=== PATIENT | male | born 1935 ===

== ENCOUNTER 2017-07-10 20:10 | Inpatient (IN) | payer MEDICARE ==
[2017-07-10 20:10] VITALS: BMI 25.4
--- NOTE | 2017-07-10 20:49 | ED PDOC ---
HPI: Chest Pain Chief Complaint (Provider): Sternal Pain History Per: Patient History/Exam Limitations: no limitations Onset/Duration Of Symptoms: Hrs (began first thing this AM), Days Current Symptoms Are (Timing): Still Present Severity: Moderate Pain Scale Rating Of: 6 Quality: Dull <Quique Jansen - Last Filed: 07/10/17 22:20> <Liv Siegel - Last Filed: 07/11/17 23:25> Time Seen by Provider: 07/10/17 20:23 Chief Complaint (Nursing): Chest Pain Additional Complaint(s): 82 yo M w PMHx of HTN, DM, and ?urinary bladder CA presents to ED for c/o chest pain since this morning. Pt states that he was watching TV when he developed substernal chest pain that hasn't improved/worsened. Denies any radiation of pain/discomfort, fevers/chills, n/v/d, syncope, or diaphoresis. 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 He denies any urinary retention/incontinence , but does state he occasionally has hematuria. He also states h/o ?carotid artery procedure 2-3 yrs ago; he is unsure as to it's name or purpose, but he did make a vertical motion on he left lateral side of his neck when explaining this history. Otherwise, pt denies SOB, dyspnea, cough, abdominal pain, or dysuria. (Quique Jansen) Supervising Attending Note - Supervising Attending Note The Documented history was done by the: Physician Machine Bookkeeper, Attending Physician The documented physical exam was done by the: Physician Machine Bookkeeper, Attending Physician - Attestation: I have personally seen and examined this patient.: Yes I have fully participated in the care of the patient.: Yes I have reviewed all pertinent clinical information: Yes <Liv Siegel - Last Filed: 07/11/17 23:25> Past Medical History Reviewed: Historical Data, Nursing Documentation, Vital Signs - Medical History PMH: Anemia, HTN Denies: Chronic Kidney Disease - Family History Family History: States: Unknown Family Hx <Quique Jansen - Last Filed: 07/10/17 22:20> <Liv Siegel - Last Filed: 07/11/17 23:25> Vital Signs: Last Vital Signs Temp 98.5 F 07/11/17 19:07 Pulse 70 07/11/17 21:34 Resp 20 07/11/17 19:07 BP 175/74 H 07/11/17 21:34 Pulse Ox 99 07/11/17 19:07 - Home Medications Home Medications: Ambulatory Orders Medication Instructions Recorded Sitagliptin Phos/Metformin HCl 50 - 500 mg PO DAILY 05/02/17 [Janumet 50-500 mg Tablet] Valsartan [Diovan] 320 mg PO DAILY 05/02/17 hydroCHLOROthiazide [Hydrodiuril] 25 mg PO DAILY 07/10/17 - Allergies Allergies/Adverse Reactions: Allergies Allergy/AdvReac Type Severity Reaction Status Date / Time No Known Allergies Allergy Verified 07/10/17 20:18 Review of Systems ROS Statement: Except As Marked, All Systems Reviewed And Found Negative (see HPI) <Quique Jansen T - Last Filed: 07/10/17 22:20> Physical Exam - Reviewed Nursing Documentation Reviewed: Yes Vital Signs Reviewed: Yes - Physical Exam Appears: Positive for: Non-toxic, No Acute Distress Head Exam: Positive for: ATRAUMATIC, NORMOCEPHALIC Eye Exam: Positive for: Normal appearance, PERRL ENT: Positive for: Pharynx Is (dry). Negative for: Pharyngeal Erythema Neck: Positive for: Normal (no scars noted over neck), Painless ROM Cardiovascular/Chest: Positive for: Regular Rate, Rhythm, Chest Non Tender, Murmur (systolic), Other (mild left carotid bruit). Negative for: Edema Respiratory: Positive for: Normal Breath Sounds. Negative for: Rhonchi, Wheezing Gastrointestinal/Abdominal: Positive for: Tenderness (epigastric) Back: Positive for: Normal Inspection Extremity: Negative for: Pedal Edema, Calf Tenderness Neurologic/Psych: Positive for: Alert, Oriented <Quique Jansen T - Last Filed: 07/10/17 22:20> - Laboratory Results Result Diagrams: 07/10/17 20:52 07/10/17 20:52 - ECG O2 Sat by Pulse Oximetry: 100 <Quique Jansen - Last Filed: 07/10/17 22:20> - Laboratory Results Result Diagrams: 07/11/17 04:15 07/11/17 04:15 <Liv Siegel - Last Filed: 07/11/17 23:25> - Progress ED Course And Treament: 82 yo M w PMHx of HTN, DM, and ?urinary bladder CA presents to ED for c/o chest pain since this morning -CBC -CMP -Lipase -Mg -Phos -Troponin x3 -BNP -PT/INR/PTT -Type & Screen -Udip -EKG -CXR Update 2200: -H/H 8.4/27.5 -K: 5.1 -BUN/Cr: 65/3.4; GFR: 17 -AST/ALT: 22/37; Lipase: 714 -BNP: 376 -Troponin: 0.022 -Admitted to tele for Pancreatitis and Chest Pain -Spoke w Hospitalist, added NS 1L bolus ONCE and NS @ 250mL/hr (Quique Jansen) Disposition - Patient ED Disposition Is Patient to be Admitted: Yes Discussed With DrBrice: Sajan Hammond - Disposition Disposition Time: 22:00 - Pt Status Changed To: Hospital Disposition Of: Inpatient - Admit Certification Admit to Inpatient:: After my assessment, the patient will require hospitalization for at least two midnights. This is because of the severity of symptoms shown, intensity of services needed, and/or the medical risk in this patient being treated as an outpatient. <Quique Jansen - Last Filed: 07/10/17 22:20> <Liv Siegel - Last Filed: 07/11/17 23:25> - Clinical Impression Clinical Impression: Chest pain, Pancreatitis, KENJI (acute kidney injury) - Disposition Condition: STABLE
[2017-07-10 21:01] LABS: BASO % 0.3 % (0.0-2.0); EOS # 0.3 K/uL (0.0-0.7); EOS % 2.9 % (0.0-4.0); HEMATOCRIT 27.5 % (35.0-51.0); LYMPH # 1.2 K/uL (1.0-4.3); LYMPH % 13.9 % (20.0-40.0); MEAN CELL VOLUME 79.5 fl (80.0-94.0); MEAN CORPUSCULAR HEMOGLOBIN 24.3 pg (27.0-31.0); MEAN CORPUSCULAR HGB CONC 30.6 g/dL (33.0-37.0); MEAN PLATELET VOLUME 7.8 fl (7.2-11.7); MONO # 0.7 K/uL (0.0-0.8); MONO % 8.1 % (0.0-10.0); NEUT # 6.7 K/uL (1.8-7.0); NEUT % 74.8 % (50.0-75.0); RED CELL DISTRIBUTION WIDTH 17.8 % (11.5-14.5)
[2017-07-10 21:11] LABS: ALB/GLOB RATIO 1.5 (1.0-2.1); BILIRUBIN,TOTAL 0.3 mg/dl (0.2-1.3); CALCIUM 9.9 mg/dL (8.4-10.2); MAGNESIUM 2.3 MG/DL (1.6-2.3); PHOSPHOROUS 3.6 mg/dl (2.5-4.5); POTASSIUM 5.1 MMOL/L (3.6-5.0); TOTAL PROTEIN 7.2 G/DL (6.3-8.2)
[2017-07-10 21:20] LABS: PARTIAL THROMBOPLASTIN TIME 27.1 Seconds (25.6-37.1)
[2017-07-10 21:23] LABS: TROPONIN I 0.022 ng/mL (0.00-0.120)
[2017-07-10] MEDS ORDERED: Sodium Chloride 0.9% 1,000 ML IV SCH (22:30)
--- NOTE | 2017-07-10 23:57 | CP.PCM.HP ---
History of Present Illness - History of Present Illness History of Present Illness: PCP: Anuel Benson MD Chief complaint: Chest Pain HPI: 82 years old male with hx of HTN, DM II Anemia and bladder tumor comes with one day of a dull, intermittent, non radiating lower retrosternal chest pain which began while he was at rest. He has associated light headedness on standing from a sitting position and some weakness. No nausea, vomits, diaphoresis, fever, chills. No dysuria, visible hematuria nor SOB. PMH: Anemia; HTN; DM II; Cataract; Sciatica with pains radiating sown both legs ;;Lower back pain; Bladder tumor for surgery on 07/24/17 PSH: Right Cataract Surgery; Left inguinal Hernia repair; Umbilical hernia repair; Left carotid endarterectomy SH: Light smoker, No alcohol use, no illegal drug use; live with family FH: States: Unknown Family Hx Allergies: NKDA Present on Admission - Present on Admission Any Indicators Present on Admission: Yes History of DVT/PE: No History of Uncontrolled Diabetes: Yes Urinary Catheter: No Decubitus Ulcer Present: No Review of Systems - Constitutional Constitutional: absent: Anorexia, Chills, Fatigue, Fever, Headache - EENT Eyes: absent: Diplopia, Floaters, Requires Corrective Lenses Ears: absent: Decreased Hearing, Ear Discharge, Tinnitus Nose/Mouth/Throat: absent: Epistaxis, Nasal Congestion, Nasal Discharge Additional comments: Upper and lower dentures - Cardiovascular Cardiovascular: Chest Pain. absent: Dyspnea, Edema - Respiratory Respiratory: Cough. absent: Wheezing, Stridor, Chest Congestion - Gastrointestinal Gastrointestinal: Constipation. absent: Diarrhea, Nausea, Vomiting - Genitourinary Genitourinary: absent: Dysuria, Flank Pain, Hematuria, Urinary Frequency - Musculoskeletal Musculoskeletal: Back Pain. absent: Joint Swelling, Myalgias Additional comments: Pain to both lower extremities - Integumentary Integumentary: absent: Pruritus, Rash, Skin Ulcer, Sores, Striae, Swelling - Neurological Neurological: Dizziness. absent: Confusion, Focal Weakness, Headaches, Weakness - Psychiatric Psychiatric: absent: Anxiety, Depression, Panic Attacks - Endocrine Endocrine: absent: Palpitations, Polydipsia, Polyphagia, Polyuria - Hematologic/Lymphatic Hematologic: absent: Easy Bleeding, Easy Bruising Past Patient History - Past Medical History & Family History Past Medical History?: Yes - Past Social History Smoking Status: Light Smoker < 10 Cigarettes Daily Chewing Tobacco Use: No Cigar Use: No Alcohol: None Drugs: Denies Home Situation {Lives}: With Family - CARDIAC Hx Hypertension: Yes - PULMONARY Hx Respiratory Disorders: No - NEUROLOGICAL Hx Neurological Disorder: No - HEENT Hx HEENT Problems: Yes Hx Cataracts: Yes (padmini surgery) - RENAL Hx Chronic Kidney Disease: No - ENDOCRINE/METABOLIC Hx Endocrine Disorders: Yes Hx Diabetes Mellitus Type 2: Yes - HEMATOLOGICAL/ONCOLOGICAL Hx Anemia: Yes - INTEGUMENTARY Hx Dermatological Problems: No - MUSCULOSKELETAL/RHEUMATOLOGICAL Hx Musculoskeletal Disorders: No - GASTROINTESTINAL Hx Gastrointestinal Disorders: No - GENITOURINARY/GYNECOLOGICAL Hx Genitourinary Disorders: No Other/Comment: 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 - PSYCHIATRIC Hx Psychophysiologic Disorder: No Hx Substance Use: No - SURGICAL HISTORY Hx Surgeries: Yes Hx Herniorrhaphy: Yes (umbilical,left inguinal) Other/Comment: left carotid endarectomy, latex padmini - ANESTHESIA Hx Anesthesia: Yes ([place]) Hx Anesthesia Reactions: No Hx Malignant Hyperthermia: No Meds Allergies/Adverse Reactions: Allergies Allergy/AdvReac Type Severity Reaction Status Date / Time No Known Allergies Allergy Verified 07/10/17 20:18 Physical Exam - Constitutional Appears: No Acute Distress - Head Exam Head Exam: ATRAUMATIC, NORMAL INSPECTION, NORMOCEPHALIC - Eye Exam Eye Exam: EOMI, Normal appearance Pupil Exam: NORMAL ACCOMODATION, PERRL - ENT Exam ENT Exam: Mucous Membranes Moist, Normal Exam, Normal External Ear Exam, Normal Oropharynx - Neck Exam Neck exam: Positive for: Full Rom, Normal Inspection. Negative for: Lymphadenopathy, Tenderness - Respiratory Exam Respiratory Exam: Clear to Auscultation Bilateral. absent: Rales, Rhonchi, Wheezes - Cardiovascular Exam Cardiovascular Exam: REGULAR RHYTHM, RRR, +S1, +S2. absent: Gallop, JVD - GI/Abdominal Exam GI & Abdominal Exam: Normal Bowel Sounds, Soft Additional comments: Full, soft tender at the pubic region, no rebound nor guarding - Rectal Exam Rectal Exam: Deferred - Extremities Exam Extremities exam: Positive for: full ROM, normal inspection. Negative for: pedal edema - Back Exam Back exam: NORMAL INSPECTION. absent: CVA tenderness (L), CVA tenderness (R) - Neurological Exam Neurological exam: Alert, CN II-XII Intact, Oriented x3, Reflexes Normal - Psychiatric Exam Psychiatric exam: Normal Affect, Normal Mood - Skin Skin Exam: Dry, Intact, Normal Color, Warm Results - Vital Signs Recent Vital Signs: Last Vital Signs Temp 97.8 F 07/10/17 20:18 Pulse 79 07/10/17 20:42 Resp 16 07/10/17 20:42 BP 172/94 H 07/10/17 20:42 Pulse Ox 100 07/10/17 22:24 - Labs Result Diagrams: 07/10/17 20:52 07/10/17 20:52 Labs: Laboratory Results - last 24 hr 07/10/17 07/10/17 07/10/17 20:52 20:52 20:52 WBC 9.0 RBC 3.46 L Hgb 8.4 L Hct 27.5 L MCV 79.5 L MCH 24.3 L MCHC 30.6 L RDW 17.8 H Plt Count 308 MPV 7.8 Neut % (Auto) 74.8 Lymph % (Auto) 13.9 L [place] % (Auto) 8.1 Eos % (Auto) 2.9 Baso % (Auto) 0.3 Neut # 6.7 Lymph # 1.2 [place] # 0.7 Eos # 0.3 Baso # 0.0 PT 11.1 INR 1.1 APTT 27.1 Sodium 138 Potassium 5.1 H Chloride 106 Carbon Dioxide 21 L Anion Gap 16 BUN 65 H Creatinine 3.4 H Est GFR ( Amer) 21 Est GFR (Non-Af Amer) 17 Random Glucose 131 H Calcium 9.9 Phosphorus 3.6 Magnesium 2.3 Total Bilirubin 0.3 AST 22 ALT 37 Alkaline Phosphatase 109 Troponin I 0.0220 NT-Pro-B Natriuret Pep 376 Total Protein 7.2 Albumin 4.2 Globulin 2.9 Albumin/Globulin Ratio 1.5 Lipase 714 H Blood Type Antibody Screen BBK History Checked 07/10/17 20:52 WBC RBC Hgb Hct MCV MCH MCHC RDW Plt Count MPV Neut % (Auto) Lymph % (Auto) [place] % (Auto) Eos % (Auto) Baso % (Auto) Neut # Lymph # [place] # Eos # Baso # PT INR APTT Sodium Potassium Chloride Carbon Dioxide Anion Gap BUN Creatinine Est GFR ( Amer) Est GFR (Non-Af Amer) Random Glucose Calcium Phosphorus Magnesium Total Bilirubin AST ALT Alkaline Phosphatase Troponin I NT-Pro-B Natriuret Pep Total Protein Albumin Globulin Albumin/Globulin Ratio Lipase Blood Type A POSITIVE Antibody Screen Negative BBK History Checked No verified bt Assessment & Plan - Assessment and Plan (Free Text) Assessment: #. Chest Pain #. Acute on chronic Kidney disease #. elevated Lipase #. DM II #. HTN #. Bladder mass #. Sciatica #. Hyperkalem Plan: 82 years old male with hx of HTN, DM II Anemia and bladder tumor comes with one day of a dull, intermittent,non radiating lower retrosternal chest pain which began while he was at rest. Associated was light headedness on standing from a sitting position and some weakness. #. Chest Pain r/o ACS, r/o reflux esophagitis - Consult Dr Mtz cardiology - Serial Troponin - Serial EKG - Lipid panel - ASA - Metoprolol - Protonix #. Acute on chronic Kidney disease - Consult Dr Balbuena Nephrology - IV Fluid NS at 250mls/hr - follow Renal labs - abdominal US to include renal, RUQ and Pancrease #. Elevated Lipase, most likely secondary to the Renal failure - IV Fluids NS at 250mls/min - Follow Lipase levels #. DM II with Hyperglycemia - Diabetic diet - Regular Insulin sliding scale according to accucheck - Hold Janumet - HbA1c #. HTN - Hold Diovan - Metoprolol BID #. Bladder mass - consult Dr Lord urology #. Sciatica - pain management #. Hyperkalemia due to the renal failure - follow Electrolytes #. DVT prophylaxis with SCD #. Code Status: Full - Date & Time Date: 07/10/17 Time: 23:56
[2017-07-11] MEDS: Sodium Chloride 0.9% 1,000 ML IV SCH ×4 (01:32→14:46)
[2017-07-11] MEDS: Pantoprazole 40 mg EC Tab PO SCH ×2 (01:37→09:41)
[2017-07-11 05:51] LABS: HEMATOCRIT 25.1 % (35.0-51.0); MEAN CELL VOLUME 78.8 fl (80.0-94.0); MEAN CORPUSCULAR HEMOGLOBIN 24.7 pg (27.0-31.0); MEAN CORPUSCULAR HGB CONC 31.4 g/dL (33.0-37.0); RED CELL DISTRIBUTION WIDTH 17.5 % (11.5-14.5); WHITE BLOOD COUNT 8.6 K/uL (4.8-10.8)
[2017-07-11 05:54] LABS: IRON 161 ug/dL (49-181)
[2017-07-11 06:01] LABS: TROPONIN I 0.06 ng/mL (0.00-0.120)
[2017-07-11 06:03] LABS: CALCIUM 9.2 mg/dL (8.4-10.2); POTASSIUM 4.6 MMOL/L (3.6-5.0)
[2017-07-11] MEDS: Insulin Regular 100 units/ml SC SCH ×4 (07:24→21:34)
--- NOTE | 2017-07-11 08:06 | RAD ---
HISTORY: Chest pain. COMPARISON: 05/02/2017. FINDINGS: LUNGS: No active pulmonary disease. PLEURA: No significant pleural effusion identified, no pneumothorax apparent. CARDIOVASCULAR: No radiographic findings to suggest acute or significant cardiovascular disease. OSSEOUS STRUCTURES: No significant abnormalities. VISUALIZED UPPER ABDOMEN: Normal. OTHER FINDINGS: None. IMPRESSION: No active disease. No significant interval change compared to the prior examination(s). No preliminary report provided by emergency department personnel.
[2017-07-11] MEDS ORDERED: Influenza Vaccine 18yr & older 0.5 ML/45 MCG SYR IM ONE (09:00)
[2017-07-11] MEDS ORDERED: Pneumococcal 23-Valent Vaccine IM ONE (09:00)
--- NOTE | 2017-07-11 09:52 | CP.PCM.PN ---
Subjective - Date & Time of Evaluation Date of Evaluation: 07/11/17 Time of Evaluation: 09:50 - Subjective Subjective: Patient is a 82 years of age presented to the emergency room with the left chest pain atypical although there was radiation as described in the H/P. He was fond to have high BUN/creatinine for which I was called to see this patient for further evaluation. Patient stated that has history of chronic kidney disease he was told that his kidney walking about 35% or so. And he has episode of hyperkalemia. And the history from the chart as follow 82 years old male with hx of HTN, DM II Anemia and bladder tumor comes with one day of a dull, intermittent, non radiating lower retrosternal chest pain which began while he was at rest. He has associated light headedness on standing from a sitting position and some weakness. No nausea, vomits, diaphoresis, fever, chills. No dysuria, visible hematuria nor SOB. PMH: Anemia; HTN; DM II; Cataract; Sciatica with pains radiating sown both legs ;;Lower back pain; Bladder tumor for surgery on 07/24/17 PSH: Right Cataract Surgery; Left inguinal Hernia repair; Umbilical hernia repair; Left carotid endarterectomy SH: Light smoker, No alcohol use, no illegal drug use; live with family Objective - Vital Signs/Intake and Output Vital Signs (last 24 hours): Temp Pulse Resp BP Pulse Ox 97.5 F L 94 H 18 163/65 H 98 07/11/17 08:00 07/11/17 09:40 07/11/17 08:00 07/11/17 09:40 07/11/17 08:00 - Medications Medications: Current Medications Aspirin (Ecotrin) 81 mg PO DAILY [facility] Last Admin: 07/11/17 09:44 Dose: Not Given Sodium Chloride (Sodium Chloride 0.9%) 1,000 mls @ 250 mls/hr IV .Q4H [facility] Stop: 07/11/17 22:16 Last Admin: 07/11/17 06:48 Dose: 250 mls/hr Insulin Human Regular (Humulin R) 0 units SC ACHS [facility] PRN Reason: Protocol Last Admin: 07/11/17 07:24 Dose: Not Given Metoprolol Tartrate (Lopressor) 25 mg PO Q12 [facility] Last Admin: 07/11/17 09:40 Dose: 25 mg Nitroglycerin (Nitrostat Sl Tab) 0.4 mg SL Q5M PRN PRN Reason: Other Last Admin: 07/11/17 01:27 Dose: 0.4 mg Pantoprazole Sodium (Protonix Ec Tab) 40 mg PO DAILY [facility] Last Admin: 07/11/17 09:41 Dose: 40 mg - Labs Labs: 07/11/17 04:15 07/11/17 04:15 PT 11.1 Seconds (9.8-13.1) 07/10/17 20:52 INR 1.1 (0.9-1.2) 07/10/17 20:52 APTT 27.1 Seconds (25.6-37.1) 07/10/17 20:52 - Constitutional Appears: No Acute Distress - ENT Exam ENT Exam: Mucous Membranes Moist - Respiratory Exam Respiratory Exam: NORMAL BREATHING PATTERN. absent: Chest Wall Tenderness - Cardiovascular Exam Cardiovascular Exam: absent: JVD, Rubs - GI/Abdominal Exam GI & Abdominal Exam: Normal Bowel Sounds - Extremities Exam Extremities Exam: absent: Calf Tenderness - Back Exam Back Exam: absent: CVA tenderness (L), CVA tenderness (R) - Neurological Exam Neurological Exam: Alert Assessment and Plan (1) KENJI (acute kidney injury) Assessment & Plan: Patient admitted with the chest pain he was fond to have high and malaise consistent with acute pancreatitis perhaps? And abnormal kidney function high BUN/creatinine consistent with appeared to be acute kidney injury perhaps superimposed on chronic kidney disease? Also as noted in the history patient has a bladder tumor is scheduled to have surgery My recommendation to do ultrasound of the abdomen and pelvis. To see the kidney size and shape Kidney function improving continue gentle hydration Spot urine for sodium creatinine and osmolarity Status: Acute
--- NOTE | 2017-07-11 11:00 | CP.PCM.PN ---
<Daniel Green - Last Filed: 07/11/17 15:28> Subjective - Date & Time of Evaluation Date of Evaluation: 07/11/17 Time of Evaluation: 10:00 - Subjective Subjective: Patient seen and examined at bedside. NAD, AAO, afebrile and HD stable. As per pt, I feel fine, denies chest pain, n/v or dizziness. pt voiding freely, denies any hematuria. [facility] [place] [id number], Syrian speaking patient Objective - Vital Signs/Intake and Output Vital Signs (last 24 hours): Temp Pulse Resp BP Pulse Ox 97.5 F L 94 H 18 163/65 H 98 07/11/17 08:00 07/11/17 09:40 07/11/17 08:00 07/11/17 09:40 07/11/17 08:00 - Medications Medications: Current Medications Aspirin (Ecotrin) 81 mg PO DAILY [facility] Last Admin: 07/11/17 09:44 Dose: Not Given Sodium Chloride (Sodium Chloride 0.9%) 1,000 mls @ 250 mls/hr IV .Q4H [facility] Stop: 07/11/17 22:16 Last Admin: 07/11/17 06:48 Dose: 250 mls/hr Insulin Human Regular (Humulin R) 0 units SC ACHS [facility] PRN Reason: Protocol Last Admin: 07/11/17 07:24 Dose: Not Given Metoprolol Tartrate (Lopressor) 25 mg PO Q12 [facility] Last Admin: 07/11/17 09:40 Dose: 25 mg Nitroglycerin (Nitrostat Sl Tab) 0.4 mg SL Q5M PRN PRN Reason: Other Last Admin: 07/11/17 01:27 Dose: 0.4 mg Pantoprazole Sodium (Protonix Ec Tab) 40 mg PO DAILY [facility] Last Admin: 07/11/17 09:41 Dose: 40 mg - Labs Labs: 07/11/17 04:15 07/11/17 04:15 PT 11.1 Seconds (9.8-13.1) 07/10/17 20:52 INR 1.1 (0.9-1.2) 07/10/17 20:52 APTT 27.1 Seconds (25.6-37.1) 07/10/17 20:52 - Constitutional Appears: No Acute Distress - Head Exam Head Exam: ATRAUMATIC - Eye Exam Eye Exam: EOMI, Normal appearance, PERRL Pupil Exam: NORMAL ACCOMODATION - ENT Exam ENT Exam: Mucous Membranes Moist - Neck Exam Neck Exam: Normal Inspection - Respiratory Exam Respiratory Exam: Clear to Ausculation Bilateral, NORMAL BREATHING PATTERN - Cardiovascular Exam Cardiovascular Exam: REGULAR RHYTHM, +S1, +S2 - GI/Abdominal Exam GI & Abdominal Exam: Soft, Normal Bowel Sounds - Extremities Exam Extremities Exam: Normal Capillary Refill, Normal Inspection. absent: Calf Tenderness, Pedal Edema, Tenderness - Back Exam Back Exam: absent: CVA tenderness (L), CVA tenderness (R) - Neurological Exam Neurological Exam: Alert, Awake, Oriented x3 Neuro motor strength exam: Left Upper Extremity: 5, Right Upper Extremity: 5, Left Lower Extremity: 5, Right Lower Extremity: 5 - Psychiatric Exam Psychiatric exam: Normal Mood - Skin Skin Exam: Dry, Intact, Normal Color, Warm Assessment and Plan - Assessment and Plan (Free Text) Assessment: A/P: 82 years old male with PMH of HTN, DM II, Anemia and bladder tumor comes with one day of a dull, intermittent,non radiating lower retrosternal chest pain which began while he was at rest. Associated was light headedness on standing from a sitting position and some weakness. pt was found to have KENJI, hyperkalemia and elevated lipase. Chest Pain r/o ACS, r/o reflux esophagitis - Resolved - Consult Dr Mtz cardiology - Serial Troponin: 0.0600 and 0.0710 - EKG showed Normal sinus rhythm with sinus arrhythmia - f/u Echocardiogram - TG 106, Chol 159, LDL/HDL 102/35 - Continue ASA Acute on chronic Kidney disease - Consult Dr Balbuena Nephrology - IV Fluid NS at 250mls/hr - BUN/Cr : 57/2.8 - F/u abdominal US to include Renal, RUQ and Pancrease - As per Dr. Nair, Spot urine for Na, Cr and osmol Elevated Lipase, most likely secondary to the Renal failure or acute pancreatitis - Lipase levels 1262 - pt toleration diet and denies any abdo pain - will repeat and f/u DM II with Hyperglycemia - Diabetic diet - Regular Insulin sliding scale according to accucheck - F/u HbA1c HTN - Continue Metoprolol 25mg PO BID and Diovan 320mg daily Chronic Anemia, possibly due to occasional Hematuria associated with bladder CA - Asymptomatic and Stable - H/H 7.9/25.1 - Iron 161, TIBC 352, % sat 46 Bladder mass - consult Dr Lord urology Sciatica - pain management Hyperkalemia due to the renal failure - Resolved - K+ 4.6 - Monitor Electrolytes Preventive care -Influenza and Pneumococcal vaccine given DVT prophylaxis - SCD GI PPX - Protonix 40mg PO daily <Amelia Ferraro - Last Filed: 07/11/17 15:44> Objective - Vital Signs/Intake and Output Vital Signs (last 24 hours): Temp Pulse Resp BP Pulse Ox 97.1 F L 71 18 178/81 H 98 07/11/17 12:00 07/11/17 12:00 07/11/17 12:00 07/11/17 12:00 07/11/17 12:00 - Medications Medications: Current Medications Aspirin (Ecotrin) 81 mg PO DAILY [facility] Last Admin: 07/11/17 09:44 Dose: Not Given Sodium Chloride (Sodium Chloride 0.9%) 1,000 mls @ 250 mls/hr IV .Q4H [facility] Stop: 07/11/17 22:16 Last Admin: 07/11/17 14:46 Dose: Not Given Insulin Human Regular (Humulin R) 0 units SC ACHS [facility] PRN Reason: Protocol Last Admin: 07/11/17 11:11 Dose: Not Given Metoprolol Tartrate (Lopressor) 25 mg PO Q12 [facility] Last Admin: 07/11/17 09:40 Dose: 25 mg Nitroglycerin (Nitrostat Sl Tab) 0.4 mg SL Q5M PRN PRN Reason: Other Last Admin: 07/11/17 01:27 Dose: 0.4 mg Pantoprazole Sodium (Protonix Ec Tab) 40 mg PO DAILY [facility] Last Admin: 07/11/17 09:41 Dose: 40 mg Valsartan (Diovan) 320 mg PO DAILY [facility] - Labs Labs: 07/11/17 04:15 07/11/17 04:15 PT 11.1 Seconds (9.8-13.1) 07/10/17 20:52 INR 1.1 (0.9-1.2) 07/10/17 20:52 APTT 27.1 Seconds (25.6-37.1) 07/10/17 20:52 Attending/Attestation - Attestation I have personally seen and examined this patient.: Yes I have fully participated in the care of the patient.: Yes I have reviewed all pertinent clinical information, including history, physical exam and plan: Yes Notes (Text): 07/11/17 15:43 AGREE WITH FINDINGS AND PLAN ABOVE THIS PATIENT IS REFUSING ULTRASOUND TODAY,S TATES HE WILL GET IT TOMORROW UNLIKELY PANCREATITIS PATIENT HAS NO ABDOMINAL PAIN, AND IS TOLERATING A FULL DIET VERY WELL AND REFUSES TO BE NPO PATIENT FOR US TOMORROW FOR ABD AND RENAL EVAL AWAITING CARDIOLOGY CONSULT WITH DR. MTZ. HD STABLE NAD.
--- NOTE | 2017-07-11 17:23 | CARD ---
APPROVED REPORT EKG Measurement Heart [id number] IN 174P26 [id number] <Conclusion> Normal sinus rhythm with sinus arrhythmia Normal ECG
--- NOTE | 2017-07-11 17:27 | CARD ---
APPROVED REPORT EKG Measurement Heart [id number] SD [id number] [id number] <Conclusion> Normal sinus rhythm Normal ECG
--- NOTE | 2017-07-11 19:55 | CARD ---
APPROVED REPORT EXAM: Two-dimensional and M-mode echocardiogram with Doppler and color Doppler. Other Information Quality : GoodRhythm : NSR INDICATION Chest Pain 2D DIMENSIONS IVSd1.51 (0.7-1.1cm)LVDd5.04 (3.9-5.9cm) LVOT Diameter1.90 (1.8-2.4cm)PWd1.10 (0.7-1.1cm) IVSs1.59 (0.8-1.2cm)LVDs3.74 (2.5-4.0cm) FS (%) 25.8 %PWs1.46 (0.8-1.2cm) M-Mode DIMENSIONS Left Atrium (MM)2.21 (2.5-4.0cm)IVSd0.74 (0.7-1.1cm) Aortic Root3.38 (2.2-3.7cm)LVDd6.15 (4.0-5.6cm) Aortic Cusp Exc.1.18 (1.5-2.0cm)PWd1.18 (0.7-1.1cm) IVSs1.47 cmFS (%) 33 % LVDs4.09 (2.0-3.8cm)PWs1.50 cm Aortic Valve AoV Peak Rpfjcoxo123.5cm/sAoV VTI54.2cmAO Peak GR.29mmHg LVOT Peak Gomkvjzw90.6cm/sLVOT VTI20.27cmAO Mean GR.14mmHg PAMELA (VMAX)0.50wh5RKS (VTI)0.55cm2 Mitral Valve MV E Xwithsgq01.5cm/sMV DECEL [id number] A Pngbqmxo610.1cm/s MV QFF09hfD/A ratio0.6MVA (PHT)3.45cm2 TDI Lateral E' Peak V8.47cm/sMedial E' Peak V6.68cm/sE/Lateral E'7.8 E/Medial E'10.0 Pulmonary Valve PV Peak Tzrbodex25.3cm/s Tricuspid Valve TR Peak Dqppvces279ev/sRAP MDGUOVDZ81rnSeIA Peak Gr.23mmHg PODY17vxFs LEFT VENTRICLE The left ventricle is normal in size. There is mild concentric left ventricular hypertrophy. The left ventricular function is normal. The left ventricular ejection fraction is - 55-60%. There is normal LV segmental wall motion. Transmitral Doppler flow pattern is Grade I-abnormal relaxation pattern. No left ventricle thrombus noted on this study. There is no ventricular septal defect visualized. There is no left ventricular aneurysm. There is no mass noted in the left ventricle. RIGHT VENTRICLE The right ventricle is normal size. There is normal right ventricular wall thickness. The right ventricular systolic function is normal. ATRIA The left atrium is mildly dilated. There is no thrombus suspected in the left atrium. The right atrium size is normal. The interatrial septum is intact with no evidence for an atrial septal defect. AORTIC VALVE The aortic valve is moderately to severely calcified(best seen on the apical 5 chamber view). There is mild aortic regurgitation. There is severe valvular aortic stenosis. Calculated aortic valve area is 0.83 cm2 with maximum pressure gradient of 35 mmHg and mean pressure gradient of mmHg. MITRAL VALVE The mitral valve leaflets are mildly thickened. There is no evidence of mitral valve prolapse. There is no mitral valve stenosis. Mitral regurgitation is mild. TRICUSPID VALVE The tricuspid valve is normal in structure and function. There is mild tricuspid regurgitation. Right ventricular systolic pressure is estimated at 31 mmHg. There is no tricuspid valve prolapse or vegetation. There is no tricuspid valve stenosis. PULMONIC VALVE The pulmonic valve is not well visualized. There is no pulmonic valvular regurgitation. GREAT VESSELS The aortic root is normal in size. The IVC was not well visualized. PERICARDIAL EFFUSION The pericardium appears normal. There is no pleural effusion. <Conclusion> The left ventricle is normal in size. There is mild concentric left ventricular hypertrophy. The left ventricular function is normal. The left ventricular ejection fraction is - 55-60%. The left atrium is mildly dilated. There is severe valvular aortic stenosis. Calculated aortic valve area is 0.83 cm2 with maximum pressure gradient ot 35 mmHg. There is mild regurgitation of the aortic, mitral and tricuspid valves.
--- NOTE | 2017-07-11 21:09 | CP.PCM.CON ---
History of Present Illness - History of Present Illness History of Present Illness: pt denies cp or sob. He denies LE pain or redness. Pt denied hx of coronary disease. 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 Pt ruled out for NM, ekg shows lvh with no st changes. per hospitalist, pt refusing certain tests. Review of Systems - Constitutional Constitutional: As Per HPI. absent: Anorexia, Chills, Daytime Sleepiness, Excessive Sweating, Fatigue, Fever, Frequent Falls, Headache, Increased Appetite , Lethargy, Malaise, Night Sweats, Snoring, Sleep Apnea, Weight Gain, Weight Loss, Weakness, Other - EENT Eyes: As Per HPI. absent: Blind Spots, Blurred Vision, Change in Vision, Decreased Night Vision, Diplopia, Discharge, Dry Eye, Exophthalmos, Floaters, Irritation, Itchy Eyes, Loss of Peripheral Vision, Pain, Photophobia, Requires Corrective Lenses, Sees Flashes, Spots in Vision, Tunnel Vision, Other Visual Disturbances, Loss of Vision, Other Ears: As Per HPI. absent: Decreased Hearing, Ear Discharge, Ear Pain, Tinnitus , Abnormal Hearing, Disequilibrium, Dizziness, Other Nose/Mouth/Throat: As Per HPI. absent: Epistaxis, Nasal Congestion, Nasal Discharge, Nasal Obstruction, Nasal Trauma, Nose Pain, Post Nasal Drip, Sinus Pain, Sinus Pressure, Bleeding Gums, Change in Voice, Dental Pain, Dry Mouth, Dysphagia, Halitosis, Hoarsness, Lip Swelling, Mouth Lesions, Mouth Pain, Odynophagia, Sore Throat, Throat Swelling, Tongue Swelling, Facial Pain, Neck Pain, Neck Mass, Other - Cardiovascular Cardiovascular: As Per HPI. absent: Acrocyanosis, Chest Pain, Chest Pain at Rest, Chest Pain with Activity, Claudication, Diaphoresis, Dyspnea, Dyspnea on Exertion, Edema, Irregular Heart Rhythm, Pain Radiating to Arm/Neck/Jaw, Leg Edema, Leg Ulcers, Lightheadedness, Orthopnea, Palpitations, Paroxysmal Nocturnal Dyspnea, Pedal Edema, Radiating Pain, Rapid Heart Rate, Slow Heart Rate, Syncope, Other - Respiratory Respiratory: As Per HPI. absent: Cough, Dyspnea, Hemoptysis, Dyspnea on Exertion, Wheezing, Snoring, Stridor, Pain on Inspiration, Chest Congestion, Excessive Mucous Production, Change in Mucous Color, Pain with Coughing, Other - Gastrointestinal Gastrointestinal: As Per HPI. absent: Abdominal Pain, Belching, Bloating, Change in Bowel Habits, Change in Stool Character, Coffee Ground Emesis, Constipation, Cramping, Diarrhea, Dyspepsia, Dysphagia, Early Satiety, Excessive Flatus, Fecal Incontinence, Heartburn, Hematemesis, Hematochezia, Loose Stools, Melena, Nausea, Odynophagia, Temesmus, Vomiting, Other - Genitourinary Genitourinary: As Per HPI. absent: Change in Urinary Stream, Difficulty Urinating, Dysuria, Flank Pain, Hematuria, Pyuria, Nocturia, Urinary Incontinence, Urinary Frequency, Urinary Hesitance, Urinary Urgency, Voiding Freq/Small Amts, Freq UTI, Hx Renal/Bladder Calculi, Hx /Renal Surgery, Bladder Distension, Other - Musculoskeletal Musculoskeletal: As Per HPI. absent: Abnormal Gait, Arthralgias, Atrophy, Back Pain, Deformity, Joint Swelling, Limited Range of Motion, Loss of Height, Muscle Cramps, Muscle Weakness, Myalgias, Neck Pain, Numbness, Radiating Pain into Limb, Stiffness, Tingling, Other - Integumentary Integumentary: As Per HPI. absent: Acne, Alopecia, Bleeding Lesions, Change in Hair, Change in Nails, Change in Pigmentation, Changing Lesions, Dry Skin, Erythema, Furuncle, Hirsutism, Lesions, New Lesions, Non-Healing Lesions, Photosensitivity, Pruritus, Rash, Skin Pain, Skin Ulcer, Sores, Striae, Swelling , Unusual Bruising, Wounds, Jaundice, Other - Neurological Neurological: As Per HPI. absent: Abnormal Gait, Abnormal Hearing, Abnormal Movements, Abnormal Speech, Behavioral Changes, Burning Sensations, Confusion, Convulsions, Disequilibrium, Dizziness, Numbness, Focal Weakness, Frequent Falls , Headaches, Lack of Coordination, Loss of Vision, Memory Loss, Paresthesias, Radicular Pain, Restless Legs, Sensory Deficit, Syncope, Tingling, Tremor, Vertigo, Weakness, Other Visual Disturbances, Other Past Patient History - Past Medical History & Family History Past Medical History?: Yes - Past Social History Smoking Status: Light Smoker < 10 Cigarettes Daily Chewing Tobacco Use: No Cigar Use: No Alcohol: None Drugs: Denies Home Situation {Lives}: With Family - CARDIAC Hx Hypertension: Yes - PULMONARY Hx Respiratory Disorders: No - NEUROLOGICAL Hx Neurological Disorder: No - HEENT Hx HEENT Problems: Yes Hx Cataracts: Yes (padmini surgery) - RENAL Hx Chronic Kidney Disease: No - ENDOCRINE/METABOLIC Hx Endocrine Disorders: Yes Hx Diabetes Mellitus Type 2: Yes - HEMATOLOGICAL/ONCOLOGICAL Hx Anemia: Yes - INTEGUMENTARY Hx Dermatological Problems: No - MUSCULOSKELETAL/RHEUMATOLOGICAL Hx Musculoskeletal Disorders: No - GASTROINTESTINAL Hx Gastrointestinal Disorders: No - GENITOURINARY/GYNECOLOGICAL Hx Genitourinary Disorders: No Other/Comment: 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 - PSYCHIATRIC Hx Psychophysiologic Disorder: No Hx Substance Use: No - SURGICAL HISTORY Hx Surgeries: Yes Hx Herniorrhaphy: Yes (umbilical,left inguinal) Other/Comment: left carotid endarectomy, latex padmini - ANESTHESIA Hx Anesthesia: Yes ([place]) Hx Anesthesia Reactions: No Hx Malignant Hyperthermia: No Meds Allergies/Adverse Reactions: Allergies Allergy/AdvReac Type Severity Reaction Status Date / Time No Known Allergies Allergy Verified 07/10/17 20:18 - Medications Medications: Current Medications Aspirin (Ecotrin) 81 mg PO DAILY [facility] Last Admin: 07/11/17 09:44 Dose: Not Given Sodium Chloride (Sodium Chloride 0.9%) 1,000 mls @ 250 mls/hr IV .Q4H [facility] Stop: 07/11/17 22:16 Last Admin: 07/11/17 14:46 Dose: Not Given Insulin Human Regular (Humulin R) 0 units SC ACHS [facility] PRN Reason: Protocol Last Admin: 07/11/17 16:37 Dose: Not Given Metoprolol Tartrate (Lopressor) 25 mg PO Q12 [facility] Last Admin: 07/11/17 09:40 Dose: 25 mg Nitroglycerin (Nitrostat Sl Tab) 0.4 mg SL Q5M PRN PRN Reason: Other Last Admin: 07/11/17 01:27 Dose: 0.4 mg Pantoprazole Sodium (Protonix Ec Tab) 40 mg PO DAILY [facility] Last Admin: 07/11/17 09:41 Dose: 40 mg Valsartan (Diovan) 320 mg PO DAILY [facility] Last Admin: 07/11/17 16:37 Dose: 320 mg Physical Exam - Constitutional Appears: Non-toxic - Head Exam Head Exam: ATRAUMATIC, NORMAL INSPECTION, NORMOCEPHALIC - Eye Exam Eye Exam: EOMI, Normal appearance, PERRL. absent: Conjunctival injection, Nystagmus, Periorbital swelling, Periorbital tenderness, Scleral icterus Pupil Exam: NORMAL ACCOMODATION, PERRL. absent: Fixed, Irregular, Miosis, Mydriatic, Unequal - ENT Exam ENT Exam: Mucous Membranes Moist, Normal Exam. absent: Mucous Membranes Dry, Normal External Ear Exam, Normal Oropharynx, TM's Normal Bilaterally - Neck Exam Neck exam: Positive for: Normal Inspection. Negative for: Full Rom, Lymphadenopathy, Meningismus, Tenderness, Thyromegaly - Respiratory Exam Respiratory Exam: Clear to Auscultation Bilateral, NORMAL BREATHING PATTERN. absent: Accessory Muscle Use, Chest Wall Tenderness, Decreased Breath Sounds, Prolonged Expiratory Phase, Rales, Rhonchi, Wheezes, Respiratory Distress, Stridor - Cardiovascular Exam Cardiovascular Exam: Diastolic murmur, REGULAR RHYTHM, +S1, +S2, Systolic Murmur. absent: Bradycardia, Tachycardia, Clicks, Gallop, Irregular Rhythm, JVD , RRR, Rubs, +S4 Additional comments: LUZ 3/6 at base positive s1 and s2. crescendo like. sm 3/6 at base early to mid systole, radiating to LSB - GI/Abdominal Exam GI & Abdominal Exam: Normal Bowel Sounds, Soft. absent: Bruit, Diminished Bowel Sounds, Distended, Firm, Guarding, Hernia, Hyperactive Bowel Sounds, Hypoactive Bowel Sounds, Mass, Organomegaly, Pulsatile Mass, Rebound, Rigid, Tenderness - Rectal Exam Rectal Exam: Deferred. absent: Black Stool, Bloody Stool, Hemorrhoids, Fecal Impaction, NORMAL INSPECTION - Extremities Exam Extremities exam: Positive for: normal inspection. Negative for: calf tenderness, full ROM, joint swelling, normal capillary refill, pedal edema, tenderness, pedal pulses present - Back Exam Back exam: NORMAL INSPECTION. absent: CVA tenderness (L), CVA tenderness (R), FULL ROM, muscle spasm, paraspinal tenderness, rash noted, tenderness, vertebral tenderness - Neurological Exam Neurological exam: Alert, CN II-XII Intact, Normal Gait, Oriented x3, Reflexes Normal - Psychiatric Exam Psychiatric exam: Normal Affect, Normal Mood - Skin Skin Exam: Dry, Intact, Normal Color, Warm Results - Vital Signs Recent Vital Signs: Last Vital Signs Temp 98.5 F 07/11/17 19:07 Pulse 70 07/11/17 19:07 Resp 20 07/11/17 19:07 BP 175/74 H 07/11/17 19:07 Pulse Ox 99 07/11/17 19:07 - Labs Result Diagrams: 07/12/17 09:30 07/12/17 09:30 Labs: Laboratory Results - last 24 hr 07/10/17 07/10/17 07/10/17 20:52 20:52 20:52 WBC RBC Hgb Hct MCV MCH MCHC RDW Plt Count PT 11.1 INR 1.1 APTT 27.1 Sodium 138 Potassium 5.1 H Chloride 106 Carbon Dioxide 21 L Anion Gap 16 BUN 65 H Creatinine 3.4 H Est GFR ( Amer) 21 Est GFR (Non-Af Amer) 17 POC Glucose (mg/dL) Random Glucose 131 H Hemoglobin A1c Calcium 9.9 Phosphorus 3.6 Magnesium 2.3 Iron TIBC % Saturation Total Bilirubin 0.3 AST 22 ALT 37 Alkaline Phosphatase 109 Troponin I 0.0220 NT-Pro-B Natriuret Pep 376 Total Protein 7.2 Albumin 4.2 Globulin 2.9 Albumin/Globulin Ratio 1.5 Triglycerides Cholesterol LDL Cholesterol Direct HDL Cholesterol Lipase 714 H Ur Random Sodium Ur Random Potassium Stool Occult Blood Blood Type A POSITIVE Antibody Screen Negative BBK History Checked No verified bt 07/10/17 07/11/17 07/11/17 21:14 04:15 04:15 WBC 8.6 RBC 3.18 L Hgb 7.9 L Hct 25.1 L MCV 78.8 L MCH 24.7 L MCHC 31.4 L RDW 17.5 H Plt Count 260 PT INR APTT Sodium 140 Potassium 4.6 Chloride 110 H Carbon Dioxide 18 L Anion Gap 17 BUN 57 H Creatinine 2.8 H Est GFR ( Amer) 26 Est GFR (Non-Af Amer) 22 POC Glucose (mg/dL) 135 H Random Glucose 83 Hemoglobin A1c Calcium 9.2 Phosphorus Magnesium Iron TIBC % Saturation Total Bilirubin AST ALT Alkaline Phosphatase Troponin I 0.0600 NT-Pro-B Natriuret Pep Total Protein Albumin Globulin Albumin/Globulin Ratio Triglycerides 106 Cholesterol 159 LDL Cholesterol Direct 102 HDL Cholesterol 35 Lipase 1262 H Ur Random Sodium Ur Random Potassium Stool Occult Blood Blood Type Antibody Screen BBK History Checked 07/11/17 07/11/17 07/11/17 04:15 05:23 10:43 WBC RBC Hgb Hct MCV MCH MCHC RDW Plt Count PT INR APTT Sodium Potassium Chloride Carbon Dioxide Anion Gap BUN Creatinine Est GFR ( Amer) Est GFR (Non-Af Amer) POC Glucose (mg/dL) 99 119 H Random Glucose Hemoglobin A1c Calcium Phosphorus Magnesium Iron 161 TIBC 352 % Saturation 46 Total Bilirubin AST ALT Alkaline Phosphatase Troponin I NT-Pro-B Natriuret Pep Total Protein Albumin Globulin Albumin/Globulin Ratio Triglycerides Cholesterol LDL Cholesterol Direct HDL Cholesterol Lipase Ur Random Sodium Ur Random Potassium Stool Occult Blood Blood Type Antibody Screen BBK History Checked 07/11/17 07/11/17 07/11/17 11:00 11:30 14:00 WBC RBC Hgb Hct MCV MCH MCHC RDW Plt Count PT INR APTT Sodium Potassium Chloride Carbon Dioxide Anion Gap BUN Creatinine Est GFR ( Amer) Est GFR (Non-Af Amer) POC Glucose (mg/dL) Random Glucose Hemoglobin A1c 7.0 H Calcium Phosphorus Magnesium Iron TIBC % Saturation Total Bilirubin AST ALT Alkaline Phosphatase Troponin I 0.0710 NT-Pro-B Natriuret Pep Total Protein Albumin Globulin Albumin/Globulin Ratio Triglycerides Cholesterol LDL Cholesterol Direct HDL Cholesterol Lipase Ur Random Sodium Ur Random Potassium Stool Occult Blood Positive H Blood Type Antibody Screen BBK History Checked 07/11/17 16:35 WBC RBC Hgb Hct MCV MCH MCHC RDW Plt Count PT INR APTT Sodium Potassium Chloride Carbon Dioxide Anion Gap BUN Creatinine Est GFR ( Amer) Est GFR (Non-Af Amer) POC Glucose (mg/dL) Random Glucose Hemoglobin A1c Calcium Phosphorus Magnesium Iron TIBC % Saturation Total Bilirubin AST ALT Alkaline Phosphatase Troponin I NT-Pro-B Natriuret Pep Total Protein Albumin Globulin Albumin/Globulin Ratio Triglycerides Cholesterol LDL Cholesterol Direct HDL Cholesterol Lipase Ur Random Sodium 97 Ur Random Potassium 14.1 Stool Occult Blood Blood Type Antibody Screen BBK History Checked Assessment & Plan (1) Bladder mass Status: Acute (2) HTN (hypertension) Status: Acute (3) KENJI (acute kidney injury) Status: Acute (4) Chest pain Status: Acute (5) Pancreatitis Status: Acute - Assessment and Plan (Free Text) Plan: WILL ORDER ECHO TO EVAL MURMURS. PT RULED OUT FOR NM DENYING CP, WILL HOLD OFF ON STRESS TESTING. MONITOR AND CONTROL BP WILL FOLLOW 60 MIN TOTAL CARE TIME.
[2017-07-12] MEDS: Pantoprazole 40 mg EC Tab PO SCH (09:00)
--- NOTE | 2017-07-12 09:42 | CP.PCM.PN ---
<Daniel Green - Last Filed: 07/12/17 13:44> Subjective - Date & Time of Evaluation Date of Evaluation: 07/12/17 Time of Evaluation: 09:20 - Subjective Subjective: Patient seen and examined at bedside. As per pt, I am feeling fine. Afebrile, tolerating PO intake, voiding freely, ambulating and denies any abdo/chest pain. No acute issues overnight. Stool occult blood Positive yesterday. Objective - Vital Signs/Intake and Output Vital Signs (last 24 hours): Temp Pulse Resp BP Pulse Ox 98.4 F 64 18 172/72 H 98 07/12/17 08:00 07/12/17 08:00 07/12/17 08:00 07/12/17 08:00 07/12/17 08:00 - Medications Medications: Current Medications Aspirin (Ecotrin) 81 mg PO DAILY [facility] Last Admin: 07/11/17 09:44 Dose: Not Given Insulin Human Regular (Humulin R) 0 units SC ACHS [facility] PRN Reason: Protocol Last Admin: 07/11/17 21:34 Dose: Not Given Metoprolol Tartrate (Lopressor) 25 mg PO Q12 [facility] Last Admin: 07/11/17 21:34 Dose: 25 mg Nitroglycerin (Nitrostat Sl Tab) 0.4 mg SL Q5M PRN PRN Reason: Other Last Admin: 07/11/17 01:27 Dose: 0.4 mg Pantoprazole Sodium (Protonix Ec Tab) 40 mg PO DAILY [facility] Last Admin: 07/11/17 09:41 Dose: 40 mg Valsartan (Diovan) 320 mg PO DAILY [facility] Last Admin: 07/11/17 16:37 Dose: 320 mg - Labs Labs: 07/11/17 04:15 07/11/17 04:15 PT 11.1 Seconds (9.8-13.1) 07/10/17 20:52 INR 1.1 (0.9-1.2) 07/10/17 20:52 APTT 27.1 Seconds (25.6-37.1) 07/10/17 20:52 - Constitutional Appears: No Acute Distress - Head Exam Head Exam: ATRAUMATIC, NORMAL INSPECTION, NORMOCEPHALIC - Eye Exam Eye Exam: Normal appearance - Neck Exam Neck Exam: Normal Inspection - Respiratory Exam Respiratory Exam: Clear to Ausculation Bilateral, NORMAL BREATHING PATTERN - Cardiovascular Exam Cardiovascular Exam: REGULAR RHYTHM, +S1, +S2 - GI/Abdominal Exam GI & Abdominal Exam: Soft, Normal Bowel Sounds. absent: Rigid, Tenderness, Rebound - Extremities Exam Extremities Exam: Normal Capillary Refill, Normal Inspection. absent: Calf Tenderness, Pedal Edema - Back Exam Back Exam: absent: CVA tenderness (L), CVA tenderness (R) - Neurological Exam Neurological Exam: Alert, Awake, CN II-XII Intact, Oriented x3 Neuro motor strength exam: Left Upper Extremity: 5, Right Upper Extremity: 5, Left Lower Extremity: 5, Right Lower Extremity: 5 - Psychiatric Exam Psychiatric exam: Normal Mood - Skin Skin Exam: Dry, Normal Color, Warm Assessment and Plan - Assessment and Plan (Free Text) Assessment: A/P: 82 years old male with PMH of HTN, DM II, Anemia and bladder tumor comes with one day of a dull, intermittent,non radiating lower retrosternal chest pain which began while he was at rest. Associated was light headedness on standing from a sitting position and some weakness. pt was found to have KENJI, hyperkalemia and elevated lipase. Chest Pain, possibly due to reflux esophagitis - Resolved - Consult Dr Mtz cardiology - Serial Troponin: 0.0600 and 0.0710 - EKG showed Normal sinus rhythm with sinus arrhythmia - Echocardiogram: Ef 55-60%, severe aortic stenosis and mild concentric LVH - TG 106, Chol 159, LDL/HDL 102/35 on 07/11 - Continue ASA Acute on chronic Kidney disease - BUN/Cr : 57/2.8--> 45/2.5 improving - NephroDr. Nair rec' appreciated - Spot urine for Na 97, Cr 14.1 - Abdo US shows Cholelitiasis, normal CBD, 2.1 cm simple cyst right liver lobe, 1.8cm mass w/in right kidney f/u CT/MRI w/o contrast, right kidney 7mm intrarenal calculus lower pole and 8mm midpole, potential inrinsic medical renal disease in both kidneys. Elevated Lipase, most likely secondary to the Renal failure or acute pancreatitis - Lipase levels 1262 on 07/11 - pt toleration diet and denies any abdo pain - will repeat and f/u DM II with Hyperglycemia - Diabetic diet - Regular Insulin sliding scale according to accucheck - HbA1c 7.0 HTN - Continue Metoprolol 25mg PO BID and Diovan 320mg daily Chronic Anemia, possibly due to occasional Hematuria associated with bladder CA / bleeding per rectum - Asymptomatic and Stable - H/H 7.7/23.8 - Iron 161, TIBC 352, % sat 46 on 07/11 occult blood test positive - F/u GI Consult Bladder mass - consult Dr Lord urology, rec' appreciated - Surgery ASHLEY on Jul 25 Sciatica - pain management Hyperkalemia due to the renal failure - Resolved - K+ 4.8 today - Monitor Electrolytes Preventive care -Influenza and Pneumococcal vaccine given DVT prophylaxis - SCD GI PPX - Protonix 40mg PO daily <Amelia Ferraro - Last Filed: 07/12/17 14:25> Objective - Vital Signs/Intake and Output Vital Signs (last 24 hours): Temp Pulse Resp BP Pulse Ox 97.8 F 66 18 167/75 H 98 07/12/17 12:00 07/12/17 12:00 07/12/17 12:00 07/12/17 12:00 07/12/17 12:00 - Medications Medications: Current Medications Aspirin (Ecotrin) 81 mg PO DAILY [facility] Last Admin: 07/12/17 10:30 Dose: Not Given Insulin Human Regular (Humulin R) 0 units SC ACHS [facility] PRN Reason: Protocol Last Admin: 07/12/17 12:00 Dose: Not Given Metoprolol Tartrate (Lopressor) 25 mg PO Q12 [facility] Last Admin: 07/12/17 09:00 Dose: 25 mg Nitroglycerin (Nitrostat Sl Tab) 0.4 mg SL Q5M PRN PRN Reason: Other Last Admin: 07/11/17 01:27 Dose: 0.4 mg Pantoprazole Sodium (Protonix Ec Tab) 40 mg PO DAILY [facility] Last Admin: 07/12/17 09:00 Dose: 40 mg Valsartan (Diovan) 320 mg PO DAILY [facility] Last Admin: 07/12/17 09:00 Dose: 320 mg - Labs Labs: 07/12/17 09:30 07/12/17 09:30 PT 11.8 Seconds (9.8-13.1) 07/12/17 12:38 INR 1.1 (0.9-1.2) 07/12/17 12:38 APTT 27.4 Seconds (25.6-37.1) 07/12/17 12:38 Attending/Attestation - Attestation I have personally seen and examined this patient.: Yes I have fully participated in the care of the patient.: Yes I have reviewed all pertinent clinical information, including history, physical exam and plan: Yes Notes (Text): 07/12/17 14:23 agree with findings and plan as above with resident Dr. Green patient chest pain resolved. unlikely pancreatitis Abd U/S no acute findings patient is anemic, with mildly decreasing H/H, may be dilutional from fluid resuscitation 2/2 acute on chronic renal failure however given + occult blood and report of melena "sometimes" per patient, GI consult ordered and appreciated. Transfer patient to [facility]. 07/12/17 14:24
--- NOTE | 2017-07-12 09:49 | US ---
HISTORY: Renal failure/Elevated Lipase, KENJI COMPARISON: None. TECHNIQUE: Sonographic evaluation of the abdomen. FINDINGS: LIVER: Measures 11.7 cm. There is a simple cyst in the right lobe liver posteriorly measuring 2.1 x 1.7 x 1.6 cm avascular on color per ultrasound. No additional hepatic lesions are identified throughout. No intrahepatic bile duct dilatation. GALLBLADDER: Cholelithiasis identified within a mildly distended gallbladder with the gallbladder otherwise unremarkable appearing. COMMON BILE DUCT: Measures 2.9 mm. No stones. No dilatation. PANCREAS: The pancreas is largely obscured by overlying bowel gas and is poorly characterized as a result. RIGHT KIDNEY: Measures 9.1cm. There is an 8 mm simple cyst identified at the midpole right kidney. A prominent, arm is imaged along a short axis versus a solid nodule at the midpole intrarenal space measure 1.8 x 1.8 cm. Follow-up CT of the abdomen with without contrast is advised to exclude potential intrinsic right renal mass. There is a 7 mm intrarenal calcified at the lower pole right kidney as well. The corticomedullary differentiation is poor and the renal parenchyma appears echogenic likely indicative of intrinsic medical renal disease. LEFT KIDNEY: Measures 8.5cm. The corticomedullary differentiation is poor and the renal parenchyma appears echogenic likely indicative of intrinsic medical renal disease. No focal lesion is seen related to left kidney however. SPLEEN: Normal in size and contour. No mass. AORTA: No aneurysmal dilatation. Moderate atherosclerosis noted in the lumen. IVC: Unremarkable. OTHER FINDINGS: None. IMPRESSION: 1. Cholelithiasis. Normal CBD caliber. 2. 2.1 cm simple cyst right lobe liver. 3. 1.8 cm prominent common versus mass within the right kidney. Follow-up CT or MRI without contrast is advised for better characterization. 4. 7 mm intrarenal calculus lower pole right kidney as well as midpole right renal cyst 8 mm. 5. Potential intrinsic medical renal disease in both kidneys.
[2017-07-12 10:07] LABS: HEMATOCRIT 23.8 % (35.0-51.0); MEAN CELL VOLUME 77.8 fl (80.0-94.0); MEAN CORPUSCULAR HEMOGLOBIN 25.2 pg (27.0-31.0); MEAN CORPUSCULAR HGB CONC 32.4 g/dL (33.0-37.0); RED CELL DISTRIBUTION WIDTH 17.1 % (11.5-14.5); WHITE BLOOD COUNT 8.5 K/uL (4.8-10.8)
[2017-07-12 10:18] LABS: ALB/GLOB RATIO 1.4 (1.0-2.1); BILIRUBIN,TOTAL 0.3 mg/dl (0.2-1.3); CALCIUM 9.4 mg/dL (8.4-10.2); POTASSIUM 4.8 MMOL/L (3.6-5.0); TOTAL PROTEIN 6.4 G/DL (6.3-8.2)
--- NOTE | 2017-07-12 10:59 | CP.PCM.PN ---
Subjective - Date & Time of Evaluation Date of Evaluation: 07/12/17 Time of Evaluation: 10:56 - Subjective Subjective: UROLOGY pt seen yesterday. He is known to me for dx of bladder tumor. He is scheduled for tur bt on Jul 25. At this time he needs to be medically optimized for his scheduled surgery date. Objective - Vital Signs/Intake and Output Vital Signs (last 24 hours): Temp Pulse Resp BP Pulse Ox 98.4 F 64 18 172/72 H 98 07/12/17 08:00 07/12/17 09:00 07/12/17 08:00 07/12/17 09:00 07/12/17 08:00 - Medications Medications: Current Medications Aspirin (Ecotrin) 81 mg PO DAILY [facility] Last Admin: 07/12/17 10:30 Dose: Not Given Insulin Human Regular (Humulin R) 0 units SC ACHS [facility] PRN Reason: Protocol Last Admin: 07/11/17 21:34 Dose: Not Given Metoprolol Tartrate (Lopressor) 25 mg PO Q12 [facility] Last Admin: 07/12/17 09:00 Dose: 25 mg Nitroglycerin (Nitrostat Sl Tab) 0.4 mg SL Q5M PRN PRN Reason: Other Last Admin: 07/11/17 01:27 Dose: 0.4 mg Pantoprazole Sodium (Protonix Ec Tab) 40 mg PO DAILY [facility] Last Admin: 07/12/17 09:00 Dose: 40 mg Valsartan (Diovan) 320 mg PO DAILY [facility] Last Admin: 07/12/17 09:00 Dose: 320 mg - Labs Labs: 07/12/17 09:30 07/12/17 09:30 PT 11.1 Seconds (9.8-13.1) 07/10/17 20:52 INR 1.1 (0.9-1.2) 07/10/17 20:52 APTT 27.1 Seconds (25.6-37.1) 07/10/17 20:52
[2017-07-12] MEDS: Insulin Regular 100 units/ml SC SCH ×3 (12:00→21:35)
--- NOTE | 2017-07-12 12:43 | CP.PCM.PN ---
Subjective - Date & Time of Evaluation Date of Evaluation: 07/12/17 Time of Evaluation: 12:40 - Subjective Subjective: Patient and bed appears to be comfortable no chest pain Appetite is good Objective - Vital Signs/Intake and Output Vital Signs (last 24 hours): Temp Pulse Resp BP Pulse Ox 97.8 F 66 18 167/75 H 98 07/12/17 12:00 07/12/17 12:00 07/12/17 12:00 07/12/17 12:00 07/12/17 12:00 - Medications Medications: Current Medications Aspirin (Ecotrin) 81 mg PO DAILY [facility] Last Admin: 07/12/17 10:30 Dose: Not Given Insulin Human Regular (Humulin R) 0 units SC ACHS [facility] PRN Reason: Protocol Last Admin: 07/11/17 21:34 Dose: Not Given Metoprolol Tartrate (Lopressor) 25 mg PO Q12 [facility] Last Admin: 07/12/17 09:00 Dose: 25 mg Nitroglycerin (Nitrostat Sl Tab) 0.4 mg SL Q5M PRN PRN Reason: Other Last Admin: 07/11/17 01:27 Dose: 0.4 mg Pantoprazole Sodium (Protonix Ec Tab) 40 mg PO DAILY [facility] Last Admin: 07/12/17 09:00 Dose: 40 mg Valsartan (Diovan) 320 mg PO DAILY [facility] Last Admin: 07/12/17 09:00 Dose: 320 mg - Labs Labs: 07/12/17 09:30 07/12/17 09:30 PT 11.1 Seconds (9.8-13.1) 07/10/17 20:52 INR 1.1 (0.9-1.2) 07/10/17 20:52 APTT 27.1 Seconds (25.6-37.1) 07/10/17 20:52 - Constitutional Appears: No Acute Distress - ENT Exam ENT Exam: Mucous Membranes Moist - Respiratory Exam Respiratory Exam: NORMAL BREATHING PATTERN. absent: Chest Wall Tenderness - Cardiovascular Exam Cardiovascular Exam: REGULAR RHYTHM. absent: Rubs - Extremities Exam Extremities Exam: absent: Calf Tenderness - Back Exam Back Exam: absent: CVA tenderness (L), CVA tenderness (R) - Neurological Exam Neurological Exam: Alert Assessment and Plan (1) KENJI (acute kidney injury) Assessment & Plan: Labs reviewed and showed improvement in serum creatinine. Probably acute kidney injury superimposed on underlying chronic kidney disease. Ultrasound of the kidney showed: IMPRESSION: 1. Cholelithiasis. Normal CBD caliber. 2. 2.1 cm simple cyst right lobe liver. 3. 1.8 cm prominent common versus mass within the right kidney. Follow-up CT or MRI without contrast is advised for better characterization. 4. 7 mm intrarenal calculus lower pole right kidney as well as midpole right renal cyst 8 mm. 5. Potential intrinsic medical renal disease in both kidneys. Patient need to do CT scan without IV contrast or MRI without gadolinium of the abdomen . Continue monitoring kidney function Follow-up with with this multiple urological problem noted in the ultrasound. Status: Acute
[2017-07-12 12:56] LABS: PARTIAL THROMBOPLASTIN TIME 27.4 Seconds (25.6-37.1)
[2017-07-13 04:45] VITALS: RESP 18
[2017-07-13 06:14] LABS: HEMATOCRIT 24.7 % (35.0-51.0); MEAN CELL VOLUME 77.1 fl (80.0-94.0); MEAN CORPUSCULAR HEMOGLOBIN 24.9 pg (27.0-31.0); MEAN CORPUSCULAR HGB CONC 32.3 g/dL (33.0-37.0); RED CELL DISTRIBUTION WIDTH 17.6 % (11.5-14.5); WHITE BLOOD COUNT 8.7 K/uL (4.8-10.8)
[2017-07-13 06:30] LABS: ALB/GLOB RATIO 1.3 (1.0-2.1); BILIRUBIN,TOTAL 0.3 mg/dl (0.2-1.3); CALCIUM 9.6 mg/dL (8.4-10.2); TOTAL PROTEIN 6.6 G/DL (6.3-8.2)
[2017-07-13] MEDS: Insulin Regular 100 units/ml SC SCH ×3 (06:38→16:03)
[2017-07-13 06:51] LABS: POTASSIUM 5.2 MMOL/L (3.6-5.0)
[2017-07-13] MEDS: Pantoprazole 40 mg EC Tab PO SCH (08:39)
--- NOTE | 2017-07-13 09:29 | CP.PCM.PN ---
<Daniel Green - Last Filed: 07/13/17 10:20> Subjective - Date & Time of Evaluation Date of Evaluation: 07/13/17 Time of Evaluation: 08:00 - Subjective Subjective: Patient seen and examined, NAD. As per patient, "I m fine and I would like to go home". pt ambulating and voiding freely, no hematuria, tolerating PO intake, melena on Tuesday. pt denies any n/v, chest/abdo pain or dyspnea. EGD today. Objective - Vital Signs/Intake and Output Vital Signs (last 24 hours): Temp Pulse Resp BP Pulse Ox 96.5 F L 68 18 187/77 H 100 07/13/17 08:00 07/13/17 08:41 07/13/17 08:00 07/13/17 08:41 07/13/17 08:00 - Medications Medications: Current Medications Amlodipine Besylate (Norvasc) 10 mg PO DAILY [facility] Last Admin: 07/13/17 08:39 Dose: 10 mg Aspirin (Ecotrin) 81 mg PO DAILY [facility] Last Admin: 07/12/17 10:30 Dose: Not Given Insulin Human Regular (Humulin R) 0 units SC ACHS [facility] PRN Reason: Protocol Last Admin: 07/13/17 06:38 Dose: Not Given Metoprolol Tartrate (Lopressor) 25 mg PO Q12 [facility] Last Admin: 07/13/17 08:41 Dose: 25 mg Nitroglycerin (Nitrostat Sl Tab) 0.4 mg SL Q5M PRN PRN Reason: Other Last Admin: 07/11/17 01:27 Dose: 0.4 mg Pantoprazole Sodium (Protonix Ec Tab) 40 mg PO DAILY [facility] Last Admin: 07/13/17 08:39 Dose: 40 mg Valsartan (Diovan) 320 mg PO DAILY [facility] Last Admin: 07/13/17 08:39 Dose: 320 mg - Labs Labs: 07/13/17 06:00 07/13/17 06:00 PT 11.8 Seconds (9.8-13.1) 07/12/17 12:38 INR 1.1 (0.9-1.2) 07/12/17 12:38 APTT 27.4 Seconds (25.6-37.1) 07/12/17 12:38 - Constitutional Appears: No Acute Distress - Head Exam Head Exam: ATRAUMATIC, NORMAL INSPECTION, NORMOCEPHALIC - Eye Exam Eye Exam: Normal appearance - ENT Exam ENT Exam: Mucous Membranes Moist - Neck Exam Neck Exam: Normal Inspection - Respiratory Exam Respiratory Exam: Clear to Ausculation Bilateral, NORMAL BREATHING PATTERN - Cardiovascular Exam Cardiovascular Exam: REGULAR RHYTHM, +S1, +S2 - GI/Abdominal Exam GI & Abdominal Exam: Soft, Hypoactive Bowel Sounds - Extremities Exam Extremities Exam: Normal Capillary Refill, Normal Inspection. absent: Pedal Edema, Tenderness - Back Exam Back Exam: absent: CVA tenderness (L), CVA tenderness (R) - Neurological Exam Neurological Exam: Alert, Awake, Oriented x3 - Psychiatric Exam Psychiatric exam: Agitated (wants to go home) - Skin Skin Exam: Dry, Normal Color, Warm Assessment and Plan - Assessment and Plan (Free Text) Assessment: A/P: 82 years old male with PMH of HTN, DM II, Anemia and bladder tumor comes with one day of a dull, intermittent,non radiating lower retrosternal chest pain which began while he was at rest. associated with light headedness on standing from a sitting position and some weakness. pt was found to have KENJI, hyperkalemia, anemia and elevated lipase and melena. EGD today as per GI. Chest Pain, possibly due to reflux esophagitis - Resolved - Consult Dr Mtz cardiology, Rec' appreciated - Serial Troponin: 0.0600 and 0.0710 - EKG showed Normal sinus rhythm with sinus arrhythmia - Echocardiogram: Ef 55-60%, severe aortic stenosis and mild concentric LVH - As per cardio, will order Echo to eval murmurs, hold off on stress test - TG 106, Chol 159, LDL/HDL 102/35 on 07/11 - ASA on hold Acute on chronic Kidney disease - BUN/Cr : 47/2.7 Today - Nephro, Dr. Nair, rec' appreciated - Spot urine for Na 97, Cr 14.1 on 07/11 - Abdo US shows Cholelitiasis, normal CBD, 2.1 cm simple cyst right liver lobe, 1.8cm mass w/in right kidney f/u CT/MRI w/o contrast, right kidney 7mm intrarenal calculus lower pole and 8mm midpole, potetial inrinsic medical renal disease in both kidneys. Elevated Lipase, most likely secondary to the Renal failure - Lipase levels 1262 on 07/11 - pt toleration diet and denies any abdo pain, Unlikely pancreatitis DM II with Hyperglycemia - Diabetic diet - Regular Insulin sliding scale according to accucheck - HbA1c 7.0 HTN - Metoprolol 25mg PO BID - Diovan 320mg daily - Norvasc 10mg PO daily Chronic Anemia, possibly due to occasional Hematuria associated with bladder CA / hx of melena - Asymptomatic and Stable - H/H 06/09.7 today - Iron 161, TIBC 352, % sat 46 on 07/11 Hx of melena/occult blood test positive -GI recommendations appreciated - EGD today Bladder mass - consult Dr Lord urology, rec' appreciated - Surgery [facility] on Jul 25 Sciatica - pain management Hyperkalemia due to the renal failure - Resolved - K+ 5.2 today - Monitor Electrolytes Preventive care -Influenza and Pneumococcal vaccine given DVT prophylaxis - SCD and ambulation GI PPX - Protonix 40mg PO daily <Amelia Ferraro - Last Filed: 07/13/17 16:47> Objective - Vital Signs/Intake and Output Vital Signs (last 24 hours): Temp Pulse Resp BP Pulse Ox 97.8 F 67 18 169/74 H 97 07/13/17 16:41 07/13/17 16:41 07/13/17 16:41 07/13/17 16:41 07/13/17 16:41 - Medications Medications: Current Medications Amlodipine Besylate (Norvasc) 10 mg PO DAILY [facility] Last Admin: 07/13/17 08:39 Dose: 10 mg Aspirin (Ecotrin) 81 mg PO DAILY [facility] Last Admin: 07/12/17 10:30 Dose: Not Given Dextrose/Sodium Chloride (Dextrose 5%/0.45% Ns 1000 Ml) 1,000 mls @ 125 mls/hr IV .Q8H [facility] Stop: 07/14/17 15:44 Insulin Human Regular (Humulin R) 0 units SC ACHS [facility] PRN Reason: Protocol Last Admin: 07/13/17 16:03 Dose: Not Given Metoprolol Tartrate (Lopressor) 25 mg PO Q12 [facility] Last Admin: 07/13/17 08:41 Dose: 25 mg Nitroglycerin (Nitrostat Sl Tab) 0.4 mg SL Q5M PRN PRN Reason: Other Last Admin: 07/11/17 01:27 Dose: 0.4 mg Pantoprazole Sodium (Protonix Ec Tab) 40 mg PO DAILY [facility] Last Admin: 07/13/17 08:39 Dose: 40 mg Valsartan (Diovan) 320 mg PO DAILY [facility] Last Admin: 07/13/17 08:39 Dose: 320 mg - Labs Labs: 07/13/17 06:00 07/13/17 06:00 PT 11.8 Seconds (9.8-13.1) 07/12/17 12:38 INR 1.1 (0.9-1.2) 07/12/17 12:38 APTT 27.4 Seconds (25.6-37.1) 07/12/17 12:38 Attending/Attestation - Attestation I have personally seen and examined this patient.: Yes I have fully participated in the care of the patient.: Yes I have reviewed all pertinent clinical information, including history, physical exam and plan: Yes Notes (Text): 07/13/17 16:47 agree with findings and plan as above, seen and discussed with resident Dr. Daniel Green.
--- NOTE | 2017-07-13 10:28 | CP.PCM.CON ---
History of Present Illness - History of Present Illness History of Present Illness: 82 yo male with bladder ca admitted with melena and anemia. No BMs since admission Review of Systems - Constitutional Constitutional: absent: Chills - EENT Eyes: absent: Blurred Vision Ears: absent: Decreased Hearing Nose/Mouth/Throat: absent: Epistaxis - Cardiovascular Cardiovascular: absent: Chest Pain - Respiratory Respiratory: absent: Cough - Gastrointestinal Gastrointestinal: absent: Abdominal Pain - Genitourinary Genitourinary: absent: Change in Urinary Stream Past Patient History - Past Medical History & Family History Past Medical History?: Yes - Past Social History Smoking Status: Light Smoker < 10 Cigarettes Daily Chewing Tobacco Use: No Cigar Use: No Alcohol: None Drugs: Denies Home Situation {Lives}: With Family - CARDIAC Hx Hypertension: Yes - PULMONARY Hx Respiratory Disorders: No - NEUROLOGICAL Hx Neurological Disorder: No - HEENT Hx HEENT Problems: Yes Hx Cataracts: Yes (padmini surgery) - RENAL Hx Chronic Kidney Disease: No - ENDOCRINE/METABOLIC Hx Endocrine Disorders: Yes Hx Diabetes Mellitus Type 2: Yes - HEMATOLOGICAL/ONCOLOGICAL Hx Anemia: Yes - INTEGUMENTARY Hx Dermatological Problems: No - MUSCULOSKELETAL/RHEUMATOLOGICAL Hx Musculoskeletal Disorders: No - GASTROINTESTINAL Hx Gastrointestinal Disorders: No - GENITOURINARY/GYNECOLOGICAL Hx Genitourinary Disorders: No Other/Comment: 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 - PSYCHIATRIC Hx Psychophysiologic Disorder: No Hx Substance Use: No - SURGICAL HISTORY Hx Surgeries: Yes Hx Herniorrhaphy: Yes (umbilical,left inguinal) Other/Comment: left carotid endarectomy, latex padmini - ANESTHESIA Hx Anesthesia: Yes (anton ding) Hx Anesthesia Reactions: No Hx Malignant Hyperthermia: No Meds Allergies/Adverse Reactions: Allergies Allergy/AdvReac Type Severity Reaction Status Date / Time No Known Allergies Allergy Verified 07/10/17 20:18 - Medications Medications: Current Medications Amlodipine Besylate (Norvasc) 10 mg PO DAILY [facility] Last Admin: 07/13/17 08:39 Dose: 10 mg Aspirin (Ecotrin) 81 mg PO DAILY [facility] Last Admin: 07/12/17 10:30 Dose: Not Given Insulin Human Regular (Humulin R) 0 units SC ACHS [facility] PRN Reason: Protocol Last Admin: 07/13/17 06:38 Dose: Not Given Metoprolol Tartrate (Lopressor) 25 mg PO Q12 [facility] Last Admin: 07/13/17 08:41 Dose: 25 mg Nitroglycerin (Nitrostat Sl Tab) 0.4 mg SL Q5M PRN PRN Reason: Other Last Admin: 07/11/17 01:27 Dose: 0.4 mg Pantoprazole Sodium (Protonix Ec Tab) 40 mg PO DAILY [facility] Last Admin: 07/13/17 08:39 Dose: 40 mg Valsartan (Diovan) 320 mg PO DAILY [facility] Last Admin: 07/13/17 08:39 Dose: 320 mg Physical Exam - Constitutional Appears: Well - Head Exam Head Exam: ATRAUMATIC - Eye Exam Eye Exam: Normal appearance - ENT Exam ENT Exam: Mucous Membranes Moist - Respiratory Exam Respiratory Exam: Clear to Auscultation Bilateral - Cardiovascular Exam Cardiovascular Exam: REGULAR RHYTHM, +S1, +S2 - GI/Abdominal Exam GI & Abdominal Exam: Normal Bowel Sounds, Soft. absent: Tenderness Results - Vital Signs Recent Vital Signs: Last Vital Signs Temp 96.5 F L 07/13/17 08:00 Pulse 68 07/13/17 08:41 Resp 18 07/13/17 08:00 BP 187/77 H 07/13/17 08:41 Pulse Ox 100 07/13/17 08:00 - Labs Result Diagrams: 07/13/17 06:00 07/13/17 06:00 Labs: Laboratory Results - last 24 hr 07/12/17 07/12/17 07/12/17 09:30 09:30 12:38 WBC 8.5 RBC 3.05 L Hgb 7.7 L Hct 23.8 L MCV 77.8 L MCH 25.2 L MCHC 32.4 L RDW 17.1 H Plt Count 262 PT 11.8 INR 1.1 APTT 27.4 Sodium 142 Potassium 4.8 Chloride 109 H Carbon Dioxide 19 L Anion Gap 19 BUN 45 H Creatinine 2.5 H Est GFR ( Amer) 30 Est GFR (Non-Af Amer) 25 POC Glucose (mg/dL) Random Glucose 125 H Calcium 9.4 Total Bilirubin 0.3 AST 17 D ALT 31 Alkaline Phosphatase 93 Total Protein 6.4 Albumin 3.8 Globulin 2.6 Albumin/Globulin Ratio 1.4 07/12/17 07/12/17 07/12/17 12:39 15:39 21:16 WBC RBC Hgb Hct MCV MCH MCHC RDW Plt Count PT INR APTT Sodium Potassium Chloride Carbon Dioxide Anion Gap BUN Creatinine Est GFR ( Amer) Est GFR (Non-Af Amer) POC Glucose (mg/dL) 118 H 197 H 110 Random Glucose Calcium Total Bilirubin AST ALT Alkaline Phosphatase Total Protein Albumin Globulin Albumin/Globulin Ratio 07/13/17 07/13/17 07/13/17 05:45 06:00 06:00 WBC 8.7 RBC 3.20 L Hgb 8.0 L Hct 24.7 L MCV 77.1 L MCH 24.9 L MCHC 32.3 L RDW 17.6 H Plt Count 265 PT INR APTT Sodium 143 Potassium 5.2 H Chloride 108 H Carbon Dioxide 22 Anion Gap 18 BUN 47 H Creatinine 2.7 H Est GFR ( Amer) 28 Est GFR (Non-Af Amer) 23 POC Glucose (mg/dL) 116 H Random Glucose 106 Calcium 9.6 Total Bilirubin 0.3 AST 24 ALT 34 Alkaline Phosphatase 95 Total Protein 6.6 Albumin 3.8 Globulin 2.8 Albumin/Globulin Ratio 1.3 Assessment & Plan (1) GI bleed due to NSAIDs Assessment and Plan: Anemia with melena and positive stool for occult blood. [place] to be emergent that we do upper endoscopy to r/o ulcer or other cause of significant bleed. Will do upper endoscopy later today. Continue PPI therapy. Status: Acute (2) GI bleed Status: Acute
--- NOTE | 2017-07-13 11:52 | CP.PCM.PN ---
Subjective - Date & Time of Evaluation Date of Evaluation: 07/13/17 Time of Evaluation: 11:48 - Subjective Subjective: Patient appeared to be comfortable clinically No new event reported No chest pain no shortness of breath Objective - Vital Signs/Intake and Output Vital Signs (last 24 hours): Temp Pulse Resp BP Pulse Ox 96.5 F L 68 18 187/77 H 100 07/13/17 08:00 07/13/17 08:41 07/13/17 08:00 07/13/17 08:41 07/13/17 08:00 - Medications Medications: Current Medications Amlodipine Besylate (Norvasc) 10 mg PO DAILY [facility] Last Admin: 07/13/17 08:39 Dose: 10 mg Aspirin (Ecotrin) 81 mg PO DAILY [facility] Last Admin: 07/12/17 10:30 Dose: Not Given Insulin Human Regular (Humulin R) 0 units SC ACHS [facility] PRN Reason: Protocol Last Admin: 07/13/17 06:38 Dose: Not Given Metoprolol Tartrate (Lopressor) 25 mg PO Q12 [facility] Last Admin: 07/13/17 08:41 Dose: 25 mg Nitroglycerin (Nitrostat Sl Tab) 0.4 mg SL Q5M PRN PRN Reason: Other Last Admin: 07/11/17 01:27 Dose: 0.4 mg Pantoprazole Sodium (Protonix Ec Tab) 40 mg PO DAILY [facility] Last Admin: 07/13/17 08:39 Dose: 40 mg Valsartan (Diovan) 320 mg PO DAILY [facility] Last Admin: 07/13/17 08:39 Dose: 320 mg - Labs Labs: 07/13/17 06:00 07/13/17 06:00 PT 11.8 Seconds (9.8-13.1) 07/12/17 12:38 INR 1.1 (0.9-1.2) 07/12/17 12:38 APTT 27.4 Seconds (25.6-37.1) 07/12/17 12:38 - Constitutional Appears: No Acute Distress - Eye Exam Eye Exam: Normal appearance - ENT Exam ENT Exam: Mucous Membranes Moist - Respiratory Exam Respiratory Exam: NORMAL BREATHING PATTERN. absent: Chest Wall Tenderness - Cardiovascular Exam Cardiovascular Exam: absent: JVD, Rubs - Extremities Exam Extremities Exam: absent: Calf Tenderness - Back Exam Back Exam: absent: CVA tenderness (L), CVA tenderness (R) - Neurological Exam Neurological Exam: Alert Assessment and Plan (1) KENJI (acute kidney injury) Assessment & Plan: Acute kidney injury improving however patient has underlying CK D stage IV GFR 28 #2 patient has anemia whether it's related to chronic kidney disease or GI bleeding to was reported that the has melena before he came and been evaluated by GI In addition abnormality on the kidney as per ultrasound that need follow-up with the urologist Probably acute kidney injury superimposed on underlying chronic kidney disease. check serum phosphorus and PTH Ultrasound of the kidney showed: IMPRESSION: 1. Cholelithiasis. Normal CBD caliber. 2. 2.1 cm simple cyst right lobe liver. 3. 1.8 cm prominent common versus mass within the right kidney. Follow-up CT or MRI without contrast is advised for better characterization. 4. 7 mm intrarenal calculus lower pole right kidney as well as midpole right renal cyst 8 mm. 5. Potential intrinsic medical renal disease in both kidneys. Patient need to do CT scan without IV contrast or MRI without gadolinium of the abdomen . Continue monitoring kidney function Follow-up with with this multiple urological problem noted in the ultrasound. Status: Acute
[2017-07-13 12:19] LABS: PHOSPHOROUS 3.7 mg/dl (2.5-4.5)
[2017-07-13 12:27] LABS: IRON 17 ug/dL (49-181)
--- NOTE | 2017-07-13 12:27 | CP.PCM.DIS ---
<PteerGuychad - Last Filed: 07/13/17 12:51> Provider - Provider Date of Admission: 07/10/17 22:13 Attending physician: Sajan Hammond Primary care physician: None Consults: Cardio, Dr. Mtz GI, Dr. Dickens Nephro, Dr. Balbuena Urology, Dr. Lord Time Spent in preparation of Discharge (in minutes): 45 Diagnosis - Discharge Diagnosis (1) Chest pain Status: Acute (2) Oitnl-mu-topuhbe kidney injury Status: Acute (3) Elevated lipase Status: Acute (4) Diabetes Status: Chronic (5) Sciatica Status: Chronic (6) Hyperkalemia Status: Resolved (7) Bladder mass Status: Chronic (8) GI bleed Status: Acute (9) HTN (hypertension) Status: Chronic (10) Anemia Status: Chronic Hospital Course - Lab Results Lab Results: Most Recent Lab Values WBC 8.7 K/uL (4.8-10.8) 07/13/17 06:00 RBC 3.20 Mil/uL (4.40-5.90) L 07/13/17 06:00 Hgb 8.0 g/dL (12.0-18.0) L 07/13/17 06:00 Hct 24.7 % (35.0-51.0) L 07/13/17 06:00 MCV 77.1 fl (80.0-94.0) L 07/13/17 06:00 MCH 24.9 pg (27.0-31.0) L 07/13/17 06:00 MCHC 32.3 g/dL (33.0-37.0) L 07/13/17 06:00 RDW 17.6 % (11.5-14.5) H 07/13/17 06:00 Plt Count 265 K/uL (130-400) 07/13/17 06:00 MPV 7.8 fl (7.2-11.7) 07/10/17 20:52 Neut % (Auto) 74.8 % (50.0-75.0) 07/10/17 20:52 Lymph % (Auto) 13.9 % (20.0-40.0) L 07/10/17 20:52 Toole % (Auto) 8.1 % (0.0-10.0) 07/10/17 20:52 Eos % (Auto) 2.9 % (0.0-4.0) 07/10/17 20:52 Baso % (Auto) 0.3 % (0.0-2.0) 07/10/17 20:52 Neut # 6.7 K/uL (1.8-7.0) 07/10/17 20:52 Lymph # 1.2 K/uL (1.0-4.3) 07/10/17 20:52 Toole # 0.7 K/uL (0.0-0.8) 07/10/17 20:52 Eos # 0.3 K/uL (0.0-0.7) 07/10/17 20:52 Baso # 0.0 K/uL (0.0-0.2) 07/10/17 20:52 PT 11.8 Seconds (9.8-13.1) 07/12/17 12:38 INR 1.1 (0.9-1.2) 07/12/17 12:38 APTT 27.4 Seconds (25.6-37.1) 07/12/17 12:38 Sodium 143 mmol/l (132-148) 07/13/17 06:00 Potassium 5.2 MMOL/L (3.6-5.0) H 07/13/17 06:00 Chloride 108 mmol/L (98-107) H 07/13/17 06:00 Carbon Dioxide 22 mmol/L (22-30) 07/13/17 06:00 Anion Gap 18 (10-20) 07/13/17 06:00 BUN 47 mg/dl (9-20) H 07/13/17 06:00 Creatinine 2.7 mg/dL (0.8-1.5) H 07/13/17 06:00 Est GFR ( Amer) 28 07/13/17 06:00 Est GFR (Non-Af Amer) 23 07/13/17 06:00 POC Glucose (mg/dL) 165 mg/dL (65-110) H 07/13/17 10:57 Random Glucose 106 mg/dL (75-110) 07/13/17 06:00 Hemoglobin A1c 7.0 % (4.2-6.5) H 07/11/17 11:00 Calcium 9.6 mg/dL (8.4-10.2) 07/13/17 06:00 Phosphorus 3.7 mg/dl (2.5-4.5) 07/13/17 06:00 Magnesium 2.3 MG/DL (1.6-2.3) 07/10/17 20:52 Iron 161 ug/dL (49-181) 07/11/17 04:15 TIBC 352 ug/dL (250-450) 07/11/17 04:15 % Saturation 46 % (20-55) 07/11/17 04:15 Total Bilirubin 0.3 mg/dl (0.2-1.3) 07/13/17 06:00 AST 24 U/L (17-59) 07/13/17 06:00 ALT 34 U/L (21-72) 07/13/17 06:00 Alkaline Phosphatase 95 U/L (38-126) 07/13/17 06:00 Troponin I 0.0710 ng/mL (0.00-0.120) 07/11/17 11:30 NT-Pro-B Natriuret Pep 376 pg/ml (0-900) 07/10/17 20:52 Total Protein 6.6 G/DL (6.3-8.2) 07/13/17 06:00 Albumin 3.8 g/dL (3.5-5.0) 07/13/17 06:00 Globulin 2.8 gm/dL (2.2-3.9) 07/13/17 06:00 Albumin/Globulin Ratio 1.3 (1.0-2.1) 07/13/17 06:00 Triglycerides 106 mg/DL (0-149) 07/11/17 04:15 Cholesterol 159 mg/dL (0-199) 07/11/17 04:15 LDL Cholesterol Direct 102 mg/dL (0-129) 07/11/17 04:15 HDL Cholesterol 35 MG/DL (30-70) 07/11/17 04:15 Lipase 1262 U/L (23-300) H 07/11/17 04:15 Ur Random Sodium 97 meq/L 07/11/17 16:35 Ur Random Potassium 14.1 mmol/L 07/11/17 16:35 Stool Occult Blood Positive (NEGATIVE) H 07/11/17 14:00 Blood Type A POSITIVE 07/10/17 20:52 Antibody Screen Negative 07/10/17 20:52 BBK History Checked No verified bt 07/10/17 20:52 - Hospital Course Hospital Course: 82 years old male with PMH of HTN, DM II, Anemia and bladder tumor comes with one day of a dull, intermittent,non radiating lower retrosternal chest pain which began while he was at rest. associated with light headedness on standing from a sitting position and some weakness. pt was found to have KENJI, hyperkalemia, anemia and elevated lipase and melena. Chest pain resolved, Neg troponinx2, EKG, EKG showed Normal sinus rhythm with sinus arrhythmia, Echocardiogram: Ef 55-60%, severe aortic stenosis and mild concentric LVH.As per cardio, will order Echo to eval murmurs, hold off on stress test. for HTN pt was started on Metoprolol 25mg PO BID, Diovan 320mg daily, Norvasc 10mg PO daily. 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 DM, pt was started on Regular Insulin sliding scale, HBA1C 7.0. Bladder mass, Dr Lord urology consulted and Surgery A[facility]LEY on Jul 25. Pt had melena after admission with anemia, GI consulted who rec' EGD to r/o ulcer or other cause of GI bleed and PPI. Today Nephrology rec' serum phosphorus, PTH and CT scan without IV contrast or MRI without gadolinium of the abdomen. Today , As per pt, he feels fine and would like to go home after EGD. pt will be d/c home with instruction to follow up with PMD, GI and urology after discharge. Case discussed with Dr. Ronan Menjivar, PGY-1 - Date & Time of H&P Date of H&P: 07/10/17 Time of H&P: 23:56 Discharge Exam - Head Exam Head Exam: ATRAUMATIC - Eye Exam Eye Exam: Normal appearance, PERRL Pupil Exam: NORMAL ACCOMODATION - ENT Exam ENT Exam: Mucous Membranes Moist - Neck Exam Neck exam: Normal Inspection - Respiratory Exam Respiratory Exam: NORMAL BREATHING PATTERN, UNREMARKABLE - Cardiovascular Exam Cardiovascular Exam: REGULAR RHYTHM, +S1, +S2 - GI/Abdominal Exam GI & Abdominal Exam: Normal Bowel Sounds, Soft - Extremities Exam Extremities exam: normal capillary refill, normal inspection, pedal pulses present - Back Exam Back exam: absent: CVA tenderness (L), CVA tenderness (R) - Neurological Exam Neurological exam: Alert, Normal Gait, Oriented x3 - Psychiatric Exam Psychiatric exam: Anxious - Skin Skin Exam: Dry, Intact, Normal Color, Warm Discharge Plan - Discharge Medications Prescriptions: amLODIPine [Norvasc] 10 mg PO DAILY #30 tab Aspirin [Ecotrin] 81 mg PO DAILY #30 tabec hydroCHLOROthiazide [Hydrodiuril] 25 mg PO DAILY #30 tab Metoprolol Tartrate [Lopressor] 25 mg PO Q12 #60 tab Pantoprazole [Protonix EC Tab] 40 mg PO DAILY #30 ect Sitagliptin Phos/Metformin HCl [Janumet 50-500 mg Tablet] 50 - 500 mg PO DAILY # 30 tablet Valsartan [Diovan] 320 mg PO DAILY #30 tab - Follow Up Plan Condition: STABLE Disposition: HOME/ ROUTINE Instructions: Hypertension (DC), Hypertension (GEN), Kidney Ultrasound (GEN), Bladder Ultrasound (GEN) Additional Instructions: Follow up with PMD, GI and Urology after discharge <Amelia Ferraro - Last Filed: 07/13/17 18:52> Provider - Provider Date of Admission: 07/10/17 22:13 Attending physician: Sajan Morejon [facility] [place] Course - Lab Results Lab Results: Most Recent Lab Values WBC 8.7 K/uL (4.8-10.8) 07/13/17 06:00 RBC 3.20 Mil/uL (4.40-5.90) L 07/13/17 06:00 Hgb 8.0 g/dL (12.0-18.0) L 07/13/17 06:00 Hct 24.7 % (35.0-51.0) L 07/13/17 06:00 MCV 77.1 fl (80.0-94.0) L 07/13/17 06:00 MCH 24.9 pg (27.0-31.0) L 07/13/17 06:00 MCHC 32.3 g/dL (33.0-37.0) L 07/13/17 06:00 RDW 17.6 % (11.5-14.5) H 07/13/17 06:00 Plt Count 265 K/uL (130-400) 07/13/17 06:00 MPV 7.8 fl (7.2-11.7) 07/10/17 20:52 Neut % (Auto) 74.8 % (50.0-75.0) 07/10/17 20:52 Lymph % (Auto) 13.9 % (20.0-40.0) L 07/10/17 20:52 Toole % (Auto) 8.1 % (0.0-10.0) 07/10/17 20:52 Eos % (Auto) 2.9 % (0.0-4.0) 07/10/17 20:52 Baso % (Auto) 0.3 % (0.0-2.0) 07/10/17 20:52 Neut # 6.7 K/uL (1.8-7.0) 07/10/17 20:52 Lymph # 1.2 K/uL (1.0-4.3) 07/10/17 20:52 Toole # 0.7 K/uL (0.0-0.8) 07/10/17 20:52 Eos # 0.3 K/uL (0.0-0.7) 07/10/17 20:52 Baso # 0.0 K/uL (0.0-0.2) 07/10/17 20:52 PT 11.8 Seconds (9.8-13.1) 07/12/17 12:38 INR 1.1 (0.9-1.2) 07/12/17 12:38 APTT 27.4 Seconds (25.6-37.1) 07/12/17 12:38 Sodium 143 mmol/l (132-148) 07/13/17 06:00 Potassium 5.2 MMOL/L (3.6-5.0) H 07/13/17 06:00 Chloride 108 mmol/L (98-107) H 07/13/17 06:00 Carbon Dioxide 22 mmol/L (22-30) 07/13/17 06:00 Anion Gap 18 (10-20) 07/13/17 06:00 BUN 47 mg/dl (9-20) H 07/13/17 06:00 Creatinine 2.7 mg/dL (0.8-1.5) H 07/13/17 06:00 Est GFR ( Amer) 28 07/13/17 06:00 Est GFR (Non-Af Amer) 23 07/13/17 06:00 POC Glucose (mg/dL) 113 mg/dL (65-110) H 07/13/17 15:58 Random Glucose 106 mg/dL (75-110) 07/13/17 06:00 Hemoglobin A1c 7.0 % (4.2-6.5) H 07/11/17 11:00 Calcium 9.6 mg/dL (8.4-10.2) 07/13/17 06:00 Phosphorus 3.7 mg/dl (2.5-4.5) 07/13/17 06:00 Magnesium 2.3 MG/DL (1.6-2.3) 07/10/17 20:52 Iron 17 ug/dL (49-181) L 07/13/17 06:00 TIBC 362 ug/dL (250-450) 07/13/17 06:00 % Saturation 5 % (20-55) L 07/13/17 06:00 Ferritin 12.0 ng/mL 07/13/17 06:00 Total Bilirubin 0.3 mg/dl (0.2-1.3) 07/13/17 06:00 AST 24 U/L (17-59) 07/13/17 06:00 ALT 34 U/L (21-72) 07/13/17 06:00 Alkaline Phosphatase 95 U/L (38-126) 07/13/17 06:00 Troponin I 0.0710 ng/mL (0.00-0.120) 07/11/17 11:30 NT-Pro-B Natriuret Pep 376 pg/ml (0-900) 07/10/17 20:52 Total Protein 6.6 G/DL (6.3-8.2) 07/13/17 06:00 Albumin 3.8 g/dL (3.5-5.0) 07/13/17 06:00 Globulin 2.8 gm/dL (2.2-3.9) 07/13/17 06:00 Albumin/Globulin Ratio 1.3 (1.0-2.1) 07/13/17 06:00 Triglycerides 106 mg/DL (0-149) 07/11/17 04:15 Cholesterol 159 mg/dL (0-199) 07/11/17 04:15 LDL Cholesterol Direct 102 mg/dL (0-129) 07/11/17 04:15 HDL Cholesterol 35 MG/DL (30-70) 07/11/17 04:15 Lipase 1262 U/L (23-300) H 07/11/17 04:15 Ur Random Sodium 97 meq/L 07/11/17 16:35 Ur Random Potassium 14.1 mmol/L 07/11/17 16:35 Stool Occult Blood Positive (NEGATIVE) H 07/11/17 14:00 Blood Type A POSITIVE 07/10/17 20:52 Antibody Screen Negative 07/10/17 20:52 BBK History Checked No verified bt 07/10/17 20:52 Attending/Attestation - Attestation I have personally seen and examined this patient.: Yes I have fully participated in the care of the patient.: Yes I have reviewed all pertinent clinical information, including history, physical exam and plan: Yes Notes (Text): 07/13/17 18:51 seen and examined patient with resident dr. stephanie menjivar. Discussed with Dr. Dickens, EGD significant for gastritis, no active bleeding. Patient is stable from GI and medicine standpoint to be discharged home. Follow up with GI and PCP in one week.
[2017-07-13] MEDS ORDERED: Dextrose 5%/0.45% NS 1,000 ML IV SCH (15:45)
[2017-07-13] MEDS ORDERED: Lidocaine 2% MPF (5 ml) Inj ONE (17:48)
[2017-07-13] MEDS ORDERED: Propofol 10 mg/ml Inj (20 ML) ONE (17:48)
[2017-07-13] MEDS ORDERED: Etomidate 20 mg/10ml Inj IV ONE (17:48)
[2017-07-13] MEDS ORDERED: Lactated Ringer's 500 ML IV ONE (18:05)
[2017-07-13] MEDS ORDERED: Ethanolamine Oleate 50 mg/ml (2ml) Amp IV ONE (18:40)
[2017-07-13] MEDS ORDERED: EPINEPHrine 1 mg/ml (1:1000) Inj ONE (18:40)
[2017-07-13 20:08] VITALS: BP 145/71; PULSE 64; TEMP 97.8; O2SAT 95
--- NOTE | 2017-07-14 12:50 | CP.PCM.PN ---
Subjective - Date & Time of Evaluation Date of Evaluation: 07/13/17 Time of Evaluation: 17:00 - Subjective Subjective: pt is cp free Objective - Vital Signs/Intake and Output Vital Signs (last 24 hours): Temp Pulse Resp BP Pulse Ox 97.8 F 64 18 145/71 95 07/13/17 20:07 07/13/17 20:26 07/13/17 20:07 07/13/17 20:26 07/13/17 20:07 - Labs Labs: 07/13/17 06:00 07/13/17 06:00 PT 11.8 Seconds (9.8-13.1) 07/12/17 12:38 INR 1.1 (0.9-1.2) 07/12/17 12:38 APTT 27.4 Seconds (25.6-37.1) 07/12/17 12:38 Assessment and Plan (1) Bladder mass Status: Chronic (2) HTN (hypertension) Status: Chronic (3) KENJI (acute kidney injury) Status: Acute (4) Chest pain Status: Acute (5) Pancreatitis Status: Acute - Assessment and Plan (Free Text) Plan: pt refused stress testing if pt needs testing prior to surgery, this can be done as outpt.
== END 2017-07-13 21:15 | disposition home or self-care (01) | DRG 682 ==
LOC: H.ER 20:10 → H.ERHOLD 22:13 → H.TEL 07-11 01:03
PROVIDERS: ADMIT Internal Medicine; ATTEND Internal Medicine
PROC: 3E0234Z Introduction of Serum, Toxoid and Vaccine into Muscle, Percutaneous Approach (ICD-10-PCS; 2017-07-11)
PROC: 0DB68ZX Excision of Stomach, Via Natural or Artificial Opening Endoscopic, Diagnostic (ICD-10-PCS; 2017-07-13)
PROC: 0DB48ZX Excision of Esophagogastric Junction, Via Natural or Artificial Opening Endoscopic, Diagnostic (ICD-10-PCS; principal; 2017-07-13 16:30)
DX: N17.9 Acute kidney failure, unspecified (principal); K85.90 Acute pancreatitis without necrosis or infection, unspecified; E11.22 Type 2 diabetes mellitus with diabetic chronic kidney disease; E11.65 Type 2 diabetes mellitus with hyperglycemia; C67.9 Malignant neoplasm of bladder, unspecified; E87.5 Hyperkalemia; I12.9 Hypertensive chronic kidney disease with stage 1 through stage 4 chronic kidney disease, or unspecified chronic kidney disease; D50.0 Iron deficiency anemia secondary to blood loss (chronic); K92.1 Melena; N18.9 Chronic kidney disease, unspecified; K80.20 Calculus of gallbladder without cholecystitis without obstruction; K21.0 Gastro-esophageal reflux disease with esophagitis; K29.50 Unspecified chronic gastritis without bleeding; K44.9 Diaphragmatic hernia without obstruction or gangrene; N28.1 Cyst of kidney, acquired; M54.40 Lumbago with sciatica, unspecified side; I35.0 Nonrheumatic aortic (valve) stenosis; F17.210 Nicotine dependence, cigarettes, uncomplicated; Z23 Encounter for immunization; Z79.4 Long term (current) use of insulin; Z98.41 Cataract extraction status, right eye

== ENCOUNTER 2017-08-01 08:43 | Day surgery (SDC) | payer MEDICARE ==
[2017-08-01 09:06] VITALS: BMI 25.2
[2017-08-01 09:48] LABS: CALCIUM 10.2 mg/dL (8.4-10.2)
[2017-08-01 09:52] LABS: POTASSIUM 5.3 MMOL/L (3.6-5.0)
[2017-08-01] MEDS ORDERED: cefTRIAXone (Rocephin) 1 gm Inj ONE (09:59)
[2017-08-01] MEDS ORDERED: Propofol 10 mg/ml Inj (20 ML) ONE ×2 (09:59→10:22)
[2017-08-01] MEDS ORDERED: Etomidate 20 mg/10ml Inj IV ONE (09:59)
[2017-08-01] MEDS ORDERED: Lactated Ringer's 1,000 ML IV ONE (10:05)
[2017-08-01] MEDS ORDERED: HYDROmorphone 0.5 mg/0.5 ml ISec IVP PRN (11:00)
[2017-08-01] MEDS ORDERED: HYDROmorphone 0.5 mg/0.5 ml ISec ONE (11:01)
[2017-08-01 14:33] VITALS: PULSE 76; O2SAT 100
[2017-08-01 15:56] VITALS: BP 159/86; RESP 8; TEMP 97.6
--- NOTE | 2017-08-01 22:43 | OP ---
PROCEDURE DATE: 08/01/2017 PREOPERATIVE DIAGNOSIS: Bladder tumor. POSTOPERATIVE DIAGNOSIS: Bladder tumor, large. PROCEDURE PERFORMED: Cystoscopy with transurethral resection of bladder tumor. DESCRIPTION OF PROCEDURE: The patient was placed on the operating room table in dorsal lithotomy position. The area of the groin was draped and prepped in the sterile manner. Using 24 continuous flow resectoscope by entry into the bladder atraumatically, there was a large bladder tumor located in the left lateral wall of the bladder. Using resection, I resected it down to the base of the bladder. Occasionally, there was some evidence of obturator reflex in this area, but I attempted clearly to be conservative in that area, but the rest was amply resected. During the procedure, periodically I aspirated the volume of bladder tumor from the bladder itself. At the end of the procedure, the wound site appeared to be quite dry. Estimated blood loss during the procedure to be less than 20 mL. I inserted a #22 three-way Garza catheter. We will start CBI on the patient just to make sure that things remain clear. The patient then was taken from the operating room in good condition. Shaji Lord MD
== END 2017-08-01 16:20 | disposition home or self-care (01) ==
LOC: H.OPSURG 08:43
PROVIDERS: ATTEND Urology
DX: C67.2 Malignant neoplasm of lateral wall of bladder (principal); I10 Essential (primary) hypertension
CPT/HCPCS: 36415; 52240; 80048; 82948; 88305; J0696; J1170; J2704; J2765; J7120

== ENCOUNTER 2017-10-24 09:03 | Day surgery (SDC) | payer MEDICARE ==
[2017-10-24 09:10] VITALS: BMI 24.3
[2017-10-24] MEDS ORDERED: Etomidate 20 mg/10ml Inj IV ONE (09:32)
[2017-10-24] MEDS ORDERED: Lidocaine 4% (Laryng-O-Jet) Kit MM ONE (09:32)
[2017-10-24] MEDS ORDERED: Succinylcholine 200 mg/10 ml Inj IV ONE (09:33)
[2017-10-24 09:34] LABS: MEAN CELL VOLUME 81.6 fl (80.0-94.0); MEAN CORPUSCULAR HGB CONC 31.9 g/dL (33.0-37.0); RBC 2.96 Mil/uL (4.40-5.90); RED CELL DISTRIBUTION WIDTH 18.4 % (11.5-14.5); WHITE BLOOD COUNT 9.5 K/uL (4.8-10.8)
[2017-10-24 09:39] LABS: HEMOGLOBIN 7.7 g/dL (12.0-18.0)
[2017-10-24 09:48] LABS: ALB/GLOB RATIO 1.4 (1.0-2.1); ALBUMIN 4.2 g/dL (3.5-5.0); CALCIUM 9.7 mg/dL (8.4-10.2)
[2017-10-24 09:49] LABS: INR 1.1 (0.9-1.2)
[2017-10-24] MEDS ORDERED: Midazolam 2 MG/2 ML VIAL ONE (10:09)
[2017-10-24] MEDS ORDERED: Propofol 10 mg/ml Inj (20 ML) ONE ×3 (10:09→10:14)
[2017-10-24] MEDS ORDERED: cefTRIAXone IV 1 gm in Dextros 50 ML IVPB ONE (10:17)
[2017-10-24] MEDS ORDERED: Lidocaine 2% Jelly (5 ml) TOP ONE (10:17)
[2017-10-24] MEDS ORDERED: Lidocaine 2% Jelly (Uro-Jet) ONE (10:17)
[2017-10-24] MEDS ORDERED: Lactated Ringer's 1,000 ML IV ONE (10:20)
[2017-10-24] MEDS ORDERED: Lidocaine 2% Jelly (Uro-Jet) TOP ONE (10:25)
[2017-10-24] MEDS ORDERED: cefTRIAXone (Rocephin) 1 gm Inj IM ONE (10:27)
[2017-10-24] MEDS ORDERED: Sodium Chloride 0.9% 500 ML IV ONE (10:52)
[2017-10-24] MEDS ORDERED: Sodium Chloride 0.9% 1,000 ML IV SCH (11:00)
[2017-10-24 12:35] VITALS: O2SAT 100
[2017-10-24 12:46] VITALS: RESP 18
[2017-10-24 13:23] VITALS: BP 162/78; PULSE 76; TEMP 97.6
--- NOTE | 2017-10-24 19:11 | OP ---
PROCEDURE DATE: 10/24/2017 PREOPERATIVE DIAGNOSIS: Bladder tumor. POSTOPERATIVE DIAGNOSIS: Bladder lesion. PROCEDURE PERFORMED ON THE PATIENT: Cystoscopy with bladder biopsy. DESCRIPTION OF PROCEDURE: Patient was placed on the operating room table in the dorsal lithotomy position. The area of the groin was draped and prepped in the sterile manner. Using a resectoscope, I entered into the bladder atraumatically. I identified an area in the left lateral wall that appeared to be significantly unusual. Did not have but it was totally incongruous with the rest of the bladder wall. Took a biopsy of this area, sent it for specimen analysis. At that point, then I cauterized the base of the biopsied area and then the cystoscope was removed. The patient was taken from the operating room in good condition. observation, there was a significant amount of bladder wall trabeculation throughout the bladder. Prostate was not significantly enlarged, but there was some area of bladder neck tightness, but again the resectoscope was able to be passed without significant difficulty. Blood loss was zero. Patient was taken from the operating room in good condition. Shaji Lord MD
--- NOTE | 2017-11-01 09:16 | DS ---
DATE OF PROCEDURE: 10/24/2017 HOSPITAL COURSE: Patient came in for elective resection of a bladder lesion. The procedure went uneventfully. In recovery room, the patient is stable. He will be discharged from the hospital today. He will be given an appointment to follow up in my office in 1 week from the time of this discharge to review the pathologic results. Shaji Lord MD
== END 2017-10-24 14:15 | disposition home or self-care (01) ==
LOC: H.OPSURG 09:03
PROVIDERS: ATTEND Urology
DX: C67.9 Malignant neoplasm of bladder, unspecified (principal); E11.9 Type 2 diabetes mellitus without complications; I10 Essential (primary) hypertension
CPT/HCPCS: 36415; 52204; 80053; 82948; 85027; 85610; 85730; 88305; J0696; J2001; J2250; J2704; J3010; J7040; J7120

== ENCOUNTER 2018-09-06 15:40 | Inpatient (IN) | payer MEDICARE ==
[~2018-09-06 15:40] MED LIST: Calcium Gluconate 4.65 mEq/10 ml Inj ONE; Sodium Bicarbonate 7.5% (0.9 MEQ/ML) 50ML INJ IV ONE
[2018-09-06 15:41] VITALS: BMI 24.3
--- NOTE | 2018-09-06 16:06 | ED PDOC ---
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 Patient reports no chest pain at this time but also reports minimal productive cough with white sputum. He denies any shortness of breath or use of aspirin. PMD: none provided Past Medical History Reviewed: Historical Data, Nursing Documentation, Vital Signs Vital Signs: Last Vital Signs Temp 97.7 F 09/06/18 15:43 Pulse 69 09/06/18 15:43 Resp 20 09/06/18 15:43 BP 126/59 L 09/06/18 15:43 Pulse Ox 97 09/06/18 15:43 - Medical History PMH: Anemia, Diabetes (pre), Gastritis, HTN, Pancreatitis, Chronic Kidney Disease - Surgical History Surgical History: Carotid Endarterectomy, Hernia Repair - Family History Family History: States: Unknown Family Hx - Social History Current smoker - smoking cessation education provided: No Alcohol: None Drugs: Denies - Home Medications Home Medications: Ambulatory Orders Medication Instructions Recorded Albuterol Sulfate [Ventolin Hfa] 2 puff IH Q6 PRN 09/06/18 Dexlansoprazole [Dexilant] 60 mg PO DAILY 09/06/18 Isosorbide Mononitrate ER [Imdur 30 mg PO DAILY 09/06/18 ER] Losartan [Cozaar] 100 mg PO DAILY 09/06/18 [id number] Ethyl Esters 1 GM 1 gm PO BID 09/06/18 [Lovaza] Paricalcitol [Zemplar] 1 mcg PO Q48H 09/06/18 Sitagliptin Phos/Metformin HCl 1 tab PO DAILY 09/06/18 [Janumet 50-500 mg Tablet] - Allergies Allergies/Adverse Reactions: Allergies Allergy/AdvReac Type Severity Reaction Status Date / Time No Known Allergies Allergy Verified 09/06/18 15:42 Review of Systems ROS Statement: Except As Marked, All Systems Reviewed And Found Negative Cardiovascular: Positive for: Chest Pain Respiratory: Positive for: Cough, Sputum. Negative for: Shortness of Breath Physical Exam - Reviewed Nursing Documentation Reviewed: Yes Vital Signs Reviewed: Yes - Physical Exam Appears: Positive for: Non-toxic, No Acute Distress Head Exam: Positive for: ATRAUMATIC, NORMAL INSPECTION, NORMOCEPHALIC Skin: Positive for: Warm, Dry, Pallor Eye Exam: Positive for: EOMI, Normal appearance, PERRL ENT: Positive for: Normal ENT Inspection Neck: Positive for: Normal, Painless ROM Cardiovascular/Chest: Positive for: Regular Rate, Rhythm. Negative for: Murmur Respiratory: Positive for: Normal Breath Sounds. Negative for: Respiratory Distress Gastrointestinal/Abdominal: Positive for: Normal Exam, Soft. Negative for: Tenderness Back: Positive for: Normal Inspection. Negative for: L CVA Tenderness, R CVA Tenderness, Vertebral Tenderness Extremity: Positive for: Normal ROM. Negative for: Deformity, Swelling Neurologic/Psych: Positive for: Alert, Oriented. Negative for: Motor/Sensory Deficits - Laboratory Results Result Diagrams: 09/09/18 04:35 09/09/18 04:35 - ECG O2 Sat by Pulse Oximetry: 97 (RA) Pulse Ox Interpretation: Normal - Critical Care Total Time (In Min): 75 Documented Critical Care: Time excludes all time spent performint seperately billable procedures Medical Decision Making Medical Decision Making: Time: 16:06 Plan: --Blood Type and Screen --Blood ABO/RH Type --EKG --CMP --Troponin --ED Urine Dipstick --CBC --Coags --Chest X-Ray --Blood Culture --Urinalysis 17:15 Pt c/o return of chest pain, repeat EKG ordered. 18:20 Patient c/o chest pain, repeat EKG ordered. Half inch of Nitro paste admini stered. First and second EKGs texted to Dr. Wallace at 18:24. EKG reveals forcing ST depression at V4-V6. Spoke to nurse who requested repeat EKG in 10 minutes and then faxed back to Dr. Wallace. Patient has abrupt dyspnea, diaphoresis, and audible wheezes. Patient continues to c/o chest pain. Code cart is at bedside. Patient given calcium gluconate and prepped for intubation. IV peripheral lines placed, IO in left femoral artery. 20 mg Etomidate administered via IO. Patient was intubated. 3rd EKG showed NSR at [address] elevation in AVR and V1. Discussed with Dr. Wallace EKG reveals LVH not code heart. 19:[address] Nair. Recommended to give patient 60 g Kayexalate per rectum. Additional Lasix 40 mg also advised because patient will be getting a transfusio n. 19:[address] Chu. Scribe Attestation: Documented by, Alannah Dixon and Estrada Tellez acting as a scribe for Adeola Torrez MD. Provider Scribe Attestation: All medical record entries made by the Scribe were at my direction and personally dictated by me. I have reviewed the chart and agree that the record accurately reflects my personal performance of the history, physical exam, medical decision making, and the department course for this patient. I have also personally directed, reviewed, and agree with the discharge instructions and disposition. Procedures - Central Line Central Line Lumen: triple Central Line Procedure: betadine prep, sterile dressing applied Central Line Postion: femoral (R) Central Line Post Position: sutured, good blood return - Intubation Intubation Method: orotracheal Tube Size (cm): 7.5 Breath Sounds after Intubation: equal Intubation Complications: no complications Post Intubation Xray: Yes Disposition - Clinical Impression Clinical Impression: Acute chest pain, Anemia, Acute on chronic renal failure, Pulmonary edema, Respiratory failure, Dehydration - Patient ED Disposition Is Patient to be Admitted: Yes - Disposition Disposition Time: 19:20 Condition: CRITICAL - Pt Status Changed To: Hospital Disposition Of: Inpatient - Admit Certification Admit to Inpatient:: After my assessment, the patient will require hospitalization for at least two midnights. This is because of the severity of symptoms shown, intensity of services needed, and/or the medical risk in this patient being treated as an outpatient. - POA Present On Arrival: None
--- NOTE | 2018-09-06 16:42 | RAD ---
Date of service: 09/06/2018 HISTORY: Chest pain COMPARISON: 07/10/2017. FINDINGS: LUNGS: The lungs are hyperinflated and there is peribronchial thickening with chronic changes in both lungs. It is PLEURA: No pleural effusions or pneumothorax. CARDIOVASCULAR: The heart is normal in size. No aortic atherosclerotic calcification present. OSSEOUS STRUCTURES: Within normal limits for the patient's age. VISUALIZED UPPER ABDOMEN: Normal. OTHER FINDINGS: None. IMPRESSION: No active pulmonary disease. COPD.
[2018-09-06 16:50] LABS: URINE BILIRUBIN NEGATIVE (NEGATIVE); URINE BLOOD MODERATE (NEGATIVE); URINE CLARITY CLOUDY (Clear); URINE COLOR YELLOW (YELLOW); URINE GLUCOSE (UA) NEG (Normal); URINE LEUKOCYTE ESTERASE TRACE Leu/uL (Negative); URINE PROTEIN 30 mg/dL (NEGATIVE); URINE UROBILINOGEN 0.2-1.0 mg/dL (0.2-1.0)
[2018-09-06 16:52] LABS: BASO % 0.1 % (0.0-2.0); EOS # 0.1 K/uL (0.0-0.7); EOS % 0.7 % (0.0-4.0); HEMOGLOBIN 6.6 g/dL (12.0-18.0); LYMPH # 0.4 K/uL (1.0-4.3); LYMPH % 4.3 % (20.0-40.0); MEAN CELL VOLUME 81.5 fl (80.0-94.0); MEAN CORPUSCULAR HEMOGLOBIN 25.1 pg (27.0-31.0); MEAN CORPUSCULAR HGB CONC 30.8 g/dL (33.0-37.0); MEAN PLATELET VOLUME 8.4 fl (7.2-11.7); MONO # 0.6 K/uL (0.0-0.8); MONO % 5.7 % (0.0-10.0); NEUT # 9.2 K/uL (1.8-7.0); NEUT % 89.2 % (50.0-75.0); PLATELET COUNT 225 K/uL (130-400); RBC 2.63 Mil/uL (4.40-5.90); RED CELL DISTRIBUTION WIDTH 16.8 % (11.5-14.5); WHITE BLOOD COUNT 10.3 K/uL (4.8-10.8)
[2018-09-06 16:53] LABS: SQUAMOUS EPITHIAL 2 /hpf (0-5)
[2018-09-06 16:54] LABS: URINE AMORPHOUS SEDIMENT FEW /ul (<OCC); URINE BACTERIA FEW (<OCC)
[2018-09-06 16:59] LABS: INR 1.1; PROTHROMBIN TIME 12.2 Seconds (9.8-13.1)
[2018-09-06 17:01] LABS: PARTIAL THROMBOPLASTIN TIME 25.6 Seconds (25.6-37.1)
[2018-09-06 17:19] LABS: TROPONIN I 0.069 ng/mL (0.00-0.120)
[2018-09-06 17:20] LABS: ALB/GLOB RATIO 1.3 (1.0-2.1); ALBUMIN 3.9 g/dL (3.5-5.0); CALCIUM 9.4 mg/dL (8.4-10.2)
[2018-09-06] MEDS ORDERED: Insulin Regular 100 units/ml IV STA (17:27)
[2018-09-06] MEDS ORDERED: Sodium Bicarbonate 7.5% (0.9 MEQ/ML) 50ML INJ IV ONE (17:27)
[2018-09-06] MEDS ORDERED: Dextrose 50% SYRINGE Inj (50 ml) IVP STA (17:27)
[2018-09-06] MEDS ORDERED: Albuterol 0.083% Inhal Sol (2.5 mg/3 mL) UD INH STA (17:29)
[2018-09-06] MEDS ORDERED: Insulin Regular 100 units/ml ONE (17:31)
[2018-09-06] MEDS ORDERED: Albuterol 0.083% Inhal Sol (2.5 mg/3 mL) UD ONE (17:31)
[2018-09-06] MEDS ORDERED: SODIUM POLYSTYRENE SULFONATE 15 GM POWDER PO ONE (17:32)
[2018-09-06] MEDS ORDERED: Dextrose 50% SYRINGE Inj (50 ml) ONE (17:32)
[2018-09-06] MEDS ORDERED: Morphine 4 MG/ML VIAL IV STA (17:56)
[2018-09-06] MEDS ORDERED: Morphine 4 MG/ML VIAL ONE (18:04)
[2018-09-06] MEDS ORDERED: Albuterol-Ipratrop 3 mg / 0.5 (3 ml) UD INH STA ×2 (18:11→18:21)
[2018-09-06] MEDS ORDERED: Albuterol-Ipratrop 3 mg / 0.5 (3 ml) UD ONE ×2 (18:11→18:21)
[2018-09-06] MEDS ORDERED: Nitroglycerin 2% 15 INCH/30 GM TUBE TOP STA (18:13)
[2018-09-06] MEDS ORDERED: Nitroglycerin 2% Ointment Foilpak UD TOP ONE (18:13)
[2018-09-06 18:27] LABS: BANDS 1 % (0-2); EOSINOPHIL 1 % (0-7); LYMPHOCYTE 7 % (20-50); MONOCYTE 5 % (0-10); NEUTROPHIL 86 % (42-75); TOTAL CELLS COUNTED 100
[2018-09-06 18:28] LABS: ANISOCYTOSIS MARKED; MICROCYTOSIS MODERATE; PLATELET ESTIMATE NORMAL (NORMAL); POIKILOCYTOSIS MODERATE
[2018-09-06 18:29] LABS: ACANTHOCYTES SLIGHT; HYPOCHROMIC MODERATE; OVALOCYTES SLIGHT; POLYCHROMIC SLIGHT; TARGET CELLS SLIGHT; TEARDROP CELLS SLIGHT
[2018-09-06] MEDS ORDERED: Rocuronium 10 mg/ml (5 ml) ONE (18:35)
[2018-09-06] MEDS ORDERED: Propofol 10 mg/ml 2,000 MG/200 ML VIAL ONE (18:44)
[2018-09-06] MEDS ORDERED: Propofol 10 mg/ml Inj (20 ML) ONE (18:44)
[2018-09-06] MEDS ORDERED: Propofol 10 mg/ml Inj (20 ML) IV STA ×3 (18:47→19:14)
[2018-09-06] MEDS ORDERED: Sod Polystyrene Sulf 15 gm/60 ml Susp PR STA (19:05)
[2018-09-06] MEDS ORDERED: Nitroglycerin 2% Ointment Foilpak UD TOP STA (19:14)
[2018-09-06] MEDS ORDERED: Propofol 10 mg/ml 1,000 MG/100 ML VIAL IV SCH ×2 (19:15→21:30)
[2018-09-06] MEDS: Sod Polystyrene Sulf 15 gm/60 ml Susp PO STA ×2 (19:45→19:51)
[2018-09-06] MEDS ORDERED: cefTRIAXone (Rocephin) 1 gm Inj ONE (20:59)
--- NOTE | 2018-09-06 21:06 | CP.PCM.CON ---
History of Present Illness - History of Present Illness History of Present Illness: 83 M with h/o chronic anemia, likely form CKD, h/o CKD stage 4, h/o gi bleeding, h/o severe aortic stenosis valve size 0.83cm2 in 2017 late year, DM, HTN, was brought to hospital for c/o CP 1-2 days, in ER EKG showed LVH, strain pattern, anemia hemoglobin of 6.6, worsening renal function, hyperkalemia, no active signs of bleeding, maintained BP. Patient then started to get SOB and went in to flash pulm edema, and was intubated in ER. Due to lack of IV acces, an IO line done in ER then right femoral line done in ER. Patient improved in vital signs post intubation currently sedated with propofol. Moves extremities, but can't provide more information. Patient currently ordered IV diuresis, PRBC x2, kayexlate PMH as above PSH hernia related surg, inguinal and umbilical, bladder tumor resection, CEA Social form the record lives with family h/o smoking, no alcohol or illicit drugs Family history not contributory Meds reviewed, still need to be confirmed. Review of Systems - Review of Systems All systems: reviewed and no additional remarkable complaints except (HPI) Past Patient History - Past Medical History & Family History Past Medical History?: Yes - Past Social History Smoking Status: Light Smoker < 10 Cigarettes Daily Alcohol: None Drugs: Denies - CARDIAC Hx Hypertension: Yes - PULMONARY Hx Respiratory Disorders: Yes Hx Chronic Obstructive Pulmonary Disease (COPD): Yes - NEUROLOGICAL Hx Neurological Disorder: Yes (Radiculopathy) - HEENT Hx HEENT Problems: Yes Hx Cataracts: Yes - RENAL Hx Chronic Kidney Disease: Yes - ENDOCRINE/METABOLIC Hx Endocrine Disorders: Yes (DM type 2) Hx Diabetes Mellitus Type 2: Yes - HEMATOLOGICAL/ONCOLOGICAL Hx Anemia: Yes - INTEGUMENTARY Hx Dermatological Problems: No - MUSCULOSKELETAL/RHEUMATOLOGICAL Hx Musculoskeletal Disorders: Yes Hx Back Pain: Yes Hx Falls: No Hx Unsteady Gait: Yes Other/Comment: sciatica - GASTROINTESTINAL Hx Gastritis: Yes Hx Pancreatitis: Yes - GENITOURINARY/GYNECOLOGICAL Hx Genitourinary Disorders: Yes (Bladder Mass) Other/Comment: 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 - PSYCHIATRIC Hx Emotional Abuse: No Hx Physical Abuse: No Hx Substance Use: No - SURGICAL HISTORY Hx Carotid Endarterectomy: Yes - ANESTHESIA Hx Anesthesia: Yes (anton ding) Hx Anesthesia Reactions: No Hx Malignant Hyperthermia: No Meds Allergies/Adverse Reactions: Allergies Allergy/AdvReac Type Severity Reaction Status Date / Time No Known Allergies Allergy Verified 09/06/18 15:42 - Medications Medications: Current Medications Propofol (Diprivan) 1,000 mg in 100 mls @ 1.905 mls/hr IV .Q24H [facility]; Protocol Stop: 09/07/18 19:15 Last Admin: 09/06/18 19:43 Dose: 1.905 mls/hr Physical Exam - Additional Findings Additional findings: * HEENT ANA LUISA * Neck Supple * Chest b/l transmitted sounds form the vent/et, mild rales * CVS regular, no clear s1 * PA soft, nt bs present * Ext no edema, io in left proximal tibia, femoral line in right side * TRAINING LEAD sedated moving all ext * Skin turgor low Results - Vital Signs Recent Vital Signs: Last Vital Signs Temp 97.7 F 09/06/18 15:43 Pulse 94 H 09/06/18 20:31 Resp 12 09/06/18 20:31 BP 111/64 09/06/18 20:31 Pulse Ox 100 09/06/18 20:31 - Labs Result Diagrams: 09/06/18 16:48 09/06/18 17:49 Labs: Laboratory Results - last 24 hr 09/06/18 09/06/18 09/06/18 15:59 16:23 16:33 WBC RBC Hgb Hct MCV MCH MCHC RDW Plt Count MPV Neut % (Auto) Lymph % (Auto) Delta % (Auto) Eos % (Auto) Baso % (Auto) Neut # (Auto) Lymph # (Auto) Delta # (Auto) Eos # (Auto) Baso # (Auto) Neutrophils % (Manual) Band Neutrophils % Lymphocytes % (Manual) Monocytes % (Manual) Eosinophils % (Manual) Platelet Estimate Polychromasia Hypochromasia (manual) Poikilocytosis (manual Anisocytosis (manual) Microcytosis (manual) Target Cells Tear Drop Cells Ovalocytes Acanthocytes (Spur) PT INR APTT Sodium Potassium Chloride Carbon Dioxide Anion Gap BUN Creatinine Est GFR ( Amer) Est GFR (Non-Af Amer) POC Glucose (mg/dL) 97 Random Glucose Calcium Total Bilirubin AST ALT Alkaline Phosphatase Troponin I NT-Pro-B Natriuret Pep Total Protein Albumin Globulin Albumin/Globulin Ratio Urine Color Yellow Urine Clarity Cloudy Urine pH 5.0 Ur Specific [place] 1.016 Urine Protein 30 Urine Glucose (UA) Neg Urine Ketones Negative Urine Blood Moderate Urine Nitrate Negative Urine Bilirubin Negative Urine Urobilinogen 0.2-1.0 Ur Leukocyte Esterase Trace Urine RBC (Auto) 20 H Urine Microscopic WBC 9 H Ur Squamous Epith Cells 2 Amorphous Sediment Few H Urine Bacteria Few H Ur Yeast w Hyphae 1-2 Stool Occult Blood Blood Type A POSITIVE Antibody Screen Negative Crossmatch See Detail BBK History Checked Patient has bt 09/06/18 09/06/18 09/06/18 16:48 16:48 16:48 WBC 10.3 RBC 2.63 L Hgb 6.6 L Hct 21.4 L MCV 81.5 MCH 25.1 L MCHC 30.8 L RDW 16.8 H Plt Count 225 MPV 8.4 Neut % (Auto) 89.2 H Lymph % (Auto) 4.3 L Delta % (Auto) 5.7 Eos % (Auto) 0.7 Baso % (Auto) 0.1 Neut # (Auto) 9.2 H Lymph # (Auto) 0.4 L Delta # (Auto) 0.6 Eos # (Auto) 0.1 Baso # (Auto) 0.0 Neutrophils % (Manual) 86 H Band Neutrophils % 1 Lymphocytes % (Manual) 7 L Monocytes % (Manual) 5 Eosinophils % (Manual) 1 Platelet Estimate Normal Polychromasia Slight Hypochromasia (manual) Moderate Poikilocytosis (manual Moderate Anisocytosis (manual) Marked Microcytosis (manual) Moderate Target Cells Slight Tear Drop Cells Slight Ovalocytes Slight Acanthocytes (Spur) Slight PT 12.2 INR 1.1 APTT 25.6 Sodium 138 Potassium 6.6 H* D Chloride 111 H Carbon Dioxide 18 L Anion Gap 16 BUN 45 H Creatinine 3.9 H Est GFR ( Amer) 18 Est GFR (Non-Af Amer) 15 POC Glucose (mg/dL) Random Glucose 146 H Calcium 9.4 Total Bilirubin 0.3 AST 23 ALT 31 Alkaline Phosphatase 94 Troponin I 0.0690 NT-Pro-B Natriuret Pep 6840 H Total Protein 6.8 Albumin 3.9 Globulin 3.0 Albumin/Globulin Ratio 1.3 Urine Color Urine Clarity Urine pH Ur Specific [place] Urine Protein Urine Glucose (UA) Urine Ketones Urine Blood Urine Nitrate Urine Bilirubin Urine Urobilinogen Ur Leukocyte Esterase Urine RBC (Auto) Urine Microscopic WBC Ur Squamous Epith Cells Amorphous Sediment Urine Bacteria Ur Yeast w Hyphae Stool Occult Blood Blood Type Antibody Screen Crossmatch BBK History Checked 09/06/18 09/06/18 09/06/18 17:49 17:49 18:12 WBC RBC Hgb Hct MCV MCH MCHC RDW Plt Count MPV Neut % (Auto) Lymph % (Auto) Delta % (Auto) Eos % (Auto) Baso % (Auto) Neut # (Auto) Lymph # (Auto) Delta # (Auto) Eos # (Auto) Baso # (Auto) Neutrophils % (Manual) Band Neutrophils % Lymphocytes % (Manual) Monocytes % (Manual) Eosinophils % (Manual) Platelet Estimate Polychromasia Hypochromasia (manual) Poikilocytosis (manual Anisocytosis (manual) Microcytosis (manual) Target Cells Tear Drop Cells Ovalocytes Acanthocytes (Spur) PT INR APTT Sodium Potassium 6.2 H* Chloride Carbon Dioxide Anion Gap BUN Creatinine Est GFR ( Amer) Est GFR (Non-Af Amer) POC Glucose (mg/dL) 289 H Random Glucose Calcium Total Bilirubin AST ALT Alkaline Phosphatase Troponin I NT-Pro-B Natriuret Pep Total Protein Albumin Globulin Albumin/Globulin Ratio Urine Color Urine Clarity Urine pH Ur Specific [place] Urine Protein Urine Glucose (UA) Urine Ketones Urine Blood Urine Nitrate Urine Bilirubin Urine Urobilinogen Ur Leukocyte Esterase Urine RBC (Auto) Urine Microscopic WBC Ur Squamous Epith Cells Amorphous Sediment Urine Bacteria Ur Yeast w Hyphae Stool Occult Blood Negative Blood Type Antibody Screen Crossmatch BBK History Checked Assessment & Plan - Assessment and Plan (Free Text) Assessment: * Acute flash pulm edema likely form combination of severe anema, severe , unlikely but possibility of Acute NSTEMI. * KENJI with mild hyperkalemia likely due to above combination * CRI form DM and above * Chronic anemia, likely form CRI * H/o HTN * DM Plan: * Supportive care, including vent * PRBC x2, with diuresis * Serial troponin * Gentle with vasodilators, sedation as high risk for CV collapse with severe and pulm with volume overload * Gi/DVT prophylaxis * Cardiology, nepherology has been consulted * Repeat echo * See orders for detail.
[2018-09-06 21:50] LABS: ABG ALLEN TEST YES; ARTERIAL BLOOD GAS HCO3 21.2 mmol/L (21-28); ARTERIAL BLOOD GAS O2 SAT 99.4 % (95-98); ARTERIAL BLOOD GAS PCO2 38 mm/Hg (35-45); ARTERIAL BLOOD GAS PH 7.34 (7.35-7.45); ARTERIAL BLOOD GAS PO2 153 mm/Hg (80-100); ARTERIAL BLOOD GAS TCO2 21.7 mmol/L (22-28)
[2018-09-06 22:49] LABS: CK-MB 3.54 ng/mL (0.0-3.38)
[2018-09-06 22:51] LABS: TROPONIN I 0.172 ng/mL (0.00-0.120)
[2018-09-07] MEDS ORDERED: Chlorhexidine Gluconate 1 APPL/PKT TP ONE (03:16)
[2018-09-07 05:06] LABS: ABG ALLEN TEST YES; ARTERIAL BLOOD GAS HCO3 20.1 mmol/L (21-28); ARTERIAL BLOOD GAS PCO2 34 mm/Hg (35-45); ARTERIAL BLOOD GAS PH 7.35 (7.35-7.45); ARTERIAL BLOOD GAS PO2 135 mm/Hg (80-100); ARTERIAL BLOOD GAS TCO2 19.8 mmol/L (22-28)
[2018-09-07 05:39] LABS: HEMOGLOBIN 8.5 g/dL (12.0-18.0); MEAN CORPUSCULAR HEMOGLOBIN 26.1 pg (27.0-31.0); MEAN CORPUSCULAR HGB CONC 31.8 g/dL (33.0-37.0); RBC 3.24 Mil/uL (4.40-5.90); RED CELL DISTRIBUTION WIDTH 16.2 % (11.5-14.5); WHITE BLOOD COUNT 16.7 K/uL (4.8-10.8)
[2018-09-07 06:15] LABS: ALB/GLOB RATIO 1.3 (1.0-2.1); ALBUMIN 3.8 g/dL (3.5-5.0); CALCIUM 8.9 mg/dL (8.4-10.2); TROPONIN I 1.34 ng/mL (0.00-0.120)
[2018-09-07] MEDS ORDERED: Sod Polystyrene Sulf 15 gm/60 ml Susp PO ONE (06:49)
--- NOTE | 2018-09-07 07:16 | CP.PCM.CON ---
History of Present Illness - History of Present Illness History of Present Illness: 83 M with h/o chronic anemia, likely from CKD, h/o CKD stage 4, h/o gi bleeding, h/o severe aortic stenosis valve size 0.83cm2 in 2017 late year, DM, HTN, was brought to hospital for c/o CP 1-2 days, in ER EKG showed LVH, strain pattern, anemia hemoglobin of 6.6, worsening renal function, hyperkalemia, no active signs of bleeding, maintained BP. Patient then started to get SOB and went in to flash pulm edema, and was intuba martine in ER. Pt presently intubated 09/07 EKG: normal sinus rhythm Troponin: elevated x 2 most likely 2* to demand ischemia BNP: 8,410 PMH: HTN DM CKD Stage IV Bladder Mass Severe Past Patient History - Past Medical History & Family History Past Medical History?: Yes - Past Social History Smoking Status: Smoker Currrent Status Unknown - CARDIAC Hx Cardiac Disorders: Yes Hx Hypertension: Yes Other/Comment: severe aortic stenosis - PULMONARY Hx Respiratory Disorders: Yes Hx Chronic Obstructive Pulmonary Disease (COPD): Yes - NEUROLOGICAL Hx Neurological Disorder: Yes Other/Comment: sciatica - HEENT Hx HEENT Problems: Yes Hx Cataracts: Yes - RENAL Hx Chronic Kidney Disease: Yes Other/Comment: per son, patient has one kidney that is diseased - ENDOCRINE/METABOLIC Hx Endocrine Disorders: Yes Hx Diabetes Mellitus Type 2: Yes - HEMATOLOGICAL/ONCOLOGICAL Hx Blood Disorders: Yes Hx Anemia: Yes - INTEGUMENTARY Hx Dermatological Problems: No - MUSCULOSKELETAL/RHEUMATOLOGICAL Hx Musculoskeletal Disorders: Yes Hx Back Pain: Yes Hx Falls: No Hx Unsteady Gait: Yes Other/Comment: sciatica - GASTROINTESTINAL Hx Gastrointestinal Disorders: Yes Hx Gastritis: Yes Hx Pancreatitis: Yes - GENITOURINARY/GYNECOLOGICAL Hx Genitourinary Disorders: Yes Other/Comment: 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 Unable to get information from patient at this time - PSYCHIATRIC Hx Psychophysiologic Disorder: No Hx Emotional Abuse: No Hx Physical Abuse: No Hx Substance Use: No - SURGICAL HISTORY Hx Surgeries: Yes Hx Carotid Endarterectomy: Yes (right) Other/Comment: hernia repair in abdomen, per son - ANESTHESIA Hx Anesthesia: Yes (anton ding) Hx Anesthesia Reactions: No Hx Malignant Hyperthermia: No Meds Allergies/Adverse Reactions: Allergies Allergy/AdvReac Type Severity Reaction Status Date / Time No Known Allergies Allergy Verified 09/06/18 15:42 - Medications Medications: Current Medications Propofol (Diprivan) 1,000 mg in 100 mls @ 7.62 mls/hr IV .Q13H8M [facility]; Protocol Stop: 09/07/18 08:00 Last Admin: 09/06/18 21:30 Dose: 20 mcg/kg/min, 7.62 mls/hr Pantoprazole Sodium (Protonix Inj) 40 mg IVP DAILY [facility] Results - Vital Signs Recent Vital Signs: Last Vital Signs Temp 98.1 F 09/07/18 04:15 Pulse 79 09/07/18 06:00 Resp 17 09/07/18 06:00 BP 131/69 09/07/18 06:00 Pulse Ox 100 09/07/18 06:00 - Labs Result Diagrams: 09/07/18 05:00 09/07/18 05:00 Labs: Laboratory Results - last 24 hr 09/06/18 09/06/18 09/06/18 10:00 15:59 16:23 WBC RBC Hgb Hct MCV MCH MCHC RDW Plt Count MPV Neut % (Auto) Lymph % (Auto) [place] % (Auto) Eos % (Auto) Baso % (Auto) Neut # (Auto) Lymph # (Auto) [place] # (Auto) Eos # (Auto) Baso # (Auto) Neutrophils % (Manual) Band Neutrophils % Lymphocytes % (Manual) Monocytes % (Manual) Eosinophils % (Manual) Platelet Estimate Polychromasia Hypochromasia (manual) Poikilocytosis (manual Anisocytosis (manual) Microcytosis (manual) Target Cells Tear Drop Cells Ovalocytes Acanthocytes (Spur) PT INR APTT pCO2 pO2 HCO3 ABG pH ABG Total CO2 ABG O2 Saturation ABG Base Excess Rashawn Test ABG Potassium A-a O2 Difference Glucose Lactate Vent Mode Mechanical Rate FiO2 Tidal Volume PEEP Sodium Potassium Chloride Carbon Dioxide Anion Gap BUN Creatinine Est GFR ( Amer) Est GFR (Non-Af Amer) POC Glucose (mg/dL) 97 Random Glucose Calcium Phosphorus Magnesium Total Bilirubin AST ALT Alkaline Phosphatase Total Creatine Kinase 90 CK-MB (Mass) 3.54 H Troponin I 0.1720 H* NT-Pro-B Natriuret Pep Total Protein Albumin Globulin Albumin/Globulin Ratio Arterial Blood Potassium Urine Color Yellow Urine Clarity Cloudy Urine pH 5.0 Ur Specific [place] 1.016 Urine Protein 30 Urine Glucose (UA) Neg Urine Ketones Negative Urine Blood Moderate Urine Nitrate Negative Urine Bilirubin Negative Urine Urobilinogen 0.2-1.0 Ur Leukocyte Esterase Trace Urine RBC (Auto) 20 H Urine Microscopic WBC 9 H Ur Squamous Epith Cells 2 Amorphous Sediment Few H Urine Bacteria Few H Ur Yeast w Hyphae 1-2 Stool Occult Blood Blood Type Antibody Screen Crossmatch BBK History Checked 09/06/18 09/06/18 09/06/18 16:33 16:48 16:48 WBC 10.3 RBC 2.63 L Hgb 6.6 L Hct 21.4 L MCV 81.5 MCH 25.1 L MCHC 30.8 L RDW 16.8 H Plt Count 225 MPV 8.4 Neut % (Auto) 89.2 H Lymph % (Auto) 4.3 L [place] % (Auto) 5.7 Eos % (Auto) 0.7 Baso % (Auto) 0.1 Neut # (Auto) 9.2 H Lymph # (Auto) 0.4 L [place] # (Auto) 0.6 Eos # (Auto) 0.1 Baso # (Auto) 0.0 Neutrophils % (Manual) 86 H Band Neutrophils % 1 Lymphocytes % (Manual) 7 L Monocytes % (Manual) 5 Eosinophils % (Manual) 1 Platelet Estimate Normal Polychromasia Slight Hypochromasia (manual) Moderate Poikilocytosis (manual Moderate Anisocytosis (manual) Marked Microcytosis (manual) Moderate Target Cells Slight Tear Drop Cells Slight Ovalocytes Slight Acanthocytes (Spur) Slight PT INR APTT pCO2 pO2 HCO3 ABG pH ABG Total CO2 ABG O2 Saturation ABG Base Excess Rashawn Test ABG Potassium A-a O2 Difference Glucose Lactate Vent Mode Mechanical Rate FiO2 Tidal Volume PEEP Sodium 138 Potassium 6.6 H* D Chloride 111 H Carbon Dioxide 18 L Anion Gap 16 BUN 45 H Creatinine 3.9 H Est GFR ( Amer) 18 Est GFR (Non-Af Amer) 15 POC Glucose (mg/dL) Random Glucose 146 H Calcium 9.4 Phosphorus Magnesium Total Bilirubin 0.3 AST 23 ALT 31 Alkaline Phosphatase 94 Total Creatine Kinase CK-MB (Mass) Troponin I 0.0690 NT-Pro-B Natriuret Pep 6840 H Total Protein 6.8 Albumin 3.9 Globulin 3.0 Albumin/Globulin Ratio 1.3 Arterial Blood Potassium Urine Color Urine Clarity Urine pH Ur Specific [place] Urine Protein Urine Glucose (UA) Urine Ketones Urine Blood Urine Nitrate Urine Bilirubin Urine Urobilinogen Ur Leukocyte Esterase Urine RBC (Auto) Urine Microscopic WBC Ur Squamous Epith Cells Amorphous Sediment Urine Bacteria Ur Yeast w Hyphae Stool Occult Blood Blood Type A POSITIVE Antibody Screen Negative Crossmatch See Detail BBK History Checked Patient has bt 09/06/18 09/06/18 09/06/18 16:48 17:49 17:49 WBC RBC Hgb Hct MCV MCH MCHC RDW Plt Count MPV Neut % (Auto) Lymph % (Auto) [place] % (Auto) Eos % (Auto) Baso % (Auto) Neut # (Auto) Lymph # (Auto) [place] # (Auto) Eos # (Auto) Baso # (Auto) Neutrophils % (Manual) Band Neutrophils % Lymphocytes % (Manual) Monocytes % (Manual) Eosinophils % (Manual) Platelet Estimate Polychromasia Hypochromasia (manual) Poikilocytosis (manual Anisocytosis (manual) Microcytosis (manual) Target Cells Tear Drop Cells Ovalocytes Acanthocytes (Spur) PT 12.2 INR 1.1 APTT 25.6 pCO2 pO2 HCO3 ABG pH ABG Total CO2 ABG O2 Saturation ABG Base Excess Rashawn Test ABG Potassium A-a O2 Difference Glucose Lactate Vent Mode Mechanical Rate FiO2 Tidal Volume PEEP Sodium Potassium 6.2 H* Chloride Carbon Dioxide Anion Gap BUN Creatinine Est GFR ( Amer) Est GFR (Non-Af Amer) POC Glucose (mg/dL) Random Glucose Calcium Phosphorus Magnesium Total Bilirubin AST ALT Alkaline Phosphatase Total Creatine Kinase CK-MB (Mass) Troponin I NT-Pro-B Natriuret Pep Total Protein Albumin Globulin Albumin/Globulin Ratio Arterial Blood Potassium Urine Color Urine Clarity Urine pH Ur Specific [place] Urine Protein Urine Glucose (UA) Urine Ketones Urine Blood Urine Nitrate Urine Bilirubin Urine Urobilinogen Ur Leukocyte Esterase Urine RBC (Auto) Urine Microscopic WBC Ur Squamous Epith Cells Amorphous Sediment Urine Bacteria Ur Yeast w Hyphae Stool Occult Blood Negative Blood Type Antibody Screen Crossmatch BBK History Checked 09/06/18 09/06/18 09/06/18 18:12 21:37 22:15 WBC RBC Hgb Hct MCV MCH MCHC RDW Plt Count MPV Neut % (Auto) Lymph % (Auto) [place] % (Auto) Eos % (Auto) Baso % (Auto) Neut # (Auto) Lymph # (Auto) [place] # (Auto) Eos # (Auto) Baso # (Auto) Neutrophils % (Manual) Band Neutrophils % Lymphocytes % (Manual) Monocytes % (Manual) Eosinophils % (Manual) Platelet Estimate Polychromasia Hypochromasia (manual) Poikilocytosis (manual Anisocytosis (manual) Microcytosis (manual) Target Cells Tear Drop Cells Ovalocytes Acanthocytes (Spur) PT INR APTT pCO2 38 pO2 153 H HCO3 21.2 ABG pH 7.34 L ABG Total CO2 21.7 L ABG O2 Saturation 99.4 H ABG Base Excess -4.8 L Rashawn Test Yes ABG Potassium 5.5 H A-a O2 Difference 156.0 Glucose 90 Lactate 1.8 Vent Mode A/c Mechanical Rate 12 FiO2 50.0 Tidal Volume 500 PEEP 5 Sodium 136.0 Potassium Chloride 110.0 H Carbon Dioxide Anion Gap BUN Creatinine Est GFR ( Amer) Est GFR (Non-Af Amer) POC Glucose (mg/dL) 289 H 88 Random Glucose Calcium Phosphorus Magnesium Total Bilirubin AST ALT Alkaline Phosphatase Total Creatine Kinase CK-MB (Mass) Troponin I NT-Pro-B Natriuret Pep Total Protein Albumin Globulin Albumin/Globulin Ratio Arterial Blood Potassium 5.5 H Urine Color Urine Clarity Urine pH Ur Specific [place] Urine Protein Urine Glucose (UA) Urine Ketones Urine Blood Urine Nitrate Urine Bilirubin Urine Urobilinogen Ur Leukocyte Esterase Urine RBC (Auto) Urine Microscopic WBC Ur Squamous Epith Cells Amorphous Sediment Urine Bacteria Ur Yeast w Hyphae Stool Occult Blood Blood Type Antibody Screen Crossmatch BBK History Checked 09/06/18 09/07/18 09/07/18 23:32 04:00 04:22 WBC RBC Hgb Hct MCV MCH MCHC RDW Plt Count MPV Neut % (Auto) Lymph % (Auto) [place] % (Auto) Eos % (Auto) Baso % (Auto) Neut # (Auto) Lymph # (Auto) [place] # (Auto) Eos # (Auto) Baso # (Auto) Neutrophils % (Manual) Band Neutrophils % Lymphocytes % (Manual) Monocytes % (Manual) Eosinophils % (Manual) Platelet Estimate Polychromasia Hypochromasia (manual) Poikilocytosis (manual Anisocytosis (manual) Microcytosis (manual) Target Cells Tear Drop Cells Ovalocytes Acanthocytes (Spur) PT INR APTT pCO2 34 L pO2 135 H HCO3 20.1 L ABG pH 7.35 ABG Total CO2 19.8 L ABG O2 Saturation 100.0 H ABG Base Excess -6.2 L Rashawn Test Yes ABG Potassium 5.9 H A-a O2 Difference 108.0 Glucose 147 H Lactate 0.9 Vent Mode A/c Mechanical Rate 14 FiO2 40.0 Tidal Volume 450 PEEP 5 Sodium 132.0 Potassium Chloride 107.0 Carbon Dioxide Anion Gap BUN Creatinine Est GFR ( Amer) Est GFR (Non-Af Amer) POC Glucose (mg/dL) 100 139 H Random Glucose Calcium Phosphorus Magnesium Total Bilirubin AST ALT Alkaline Phosphatase Total Creatine Kinase CK-MB (Mass) Troponin I NT-Pro-B Natriuret Pep Total Protein Albumin Globulin Albumin/Globulin Ratio Arterial Blood Potassium 5.9 H Urine Color Urine Clarity Urine pH Ur Specific [place] Urine Protein Urine Glucose (UA) Urine Ketones Urine Blood Urine Nitrate Urine Bilirubin Urine Urobilinogen Ur Leukocyte Esterase Urine RBC (Auto) Urine Microscopic WBC Ur Squamous Epith Cells Amorphous Sediment Urine Bacteria Ur Yeast w Hyphae Stool Occult Blood Blood Type Antibody Screen Crossmatch BBK History Checked 09/07/18 09/07/18 05:00 05:00 WBC 16.7 H D RBC 3.24 L Hgb 8.5 L Hct 26.6 L MCV 82.0 MCH 26.1 L MCHC 31.8 L RDW 16.2 H Plt Count 204 MPV Neut % (Auto) Lymph % (Auto) [place] % (Auto) Eos % (Auto) Baso % (Auto) Neut # (Auto) Lymph # (Auto) [place] # (Auto) Eos # (Auto) Baso # (Auto) Neutrophils % (Manual) Band Neutrophils % Lymphocytes % (Manual) Monocytes % (Manual) Eosinophils % (Manual) Platelet Estimate Polychromasia Hypochromasia (manual) Poikilocytosis (manual Anisocytosis (manual) Microcytosis (manual) Target Cells Tear Drop Cells Ovalocytes Acanthocytes (Spur) PT INR APTT pCO2 pO2 HCO3 ABG pH ABG Total CO2 ABG O2 Saturation ABG Base Excess Rashawn Test ABG Potassium A-a O2 Difference Glucose Lactate Vent Mode Mechanical Rate FiO2 Tidal Volume PEEP Sodium 137 Potassium 6.1 H Chloride 106 Carbon Dioxide 21 L Anion Gap 16 BUN 55 H Creatinine 4.5 H Est GFR ( Amer) 15 Est GFR (Non-Af Amer) 13 POC Glucose (mg/dL) Random Glucose 148 H Calcium 8.9 Phosphorus 4.2 Magnesium 2.1 Total Bilirubin 1.8 H AST 34 ALT 36 Alkaline Phosphatase 96 Total Creatine Kinase CK-MB (Mass) Troponin I 1.3400 H* NT-Pro-B Natriuret Pep 8410 H Total Protein 6.8 Albumin 3.8 Globulin 3.0 Albumin/Globulin Ratio 1.3 Arterial Blood Potassium Urine Color Urine Clarity Urine pH Ur Specific [place] Urine Protein Urine Glucose (UA) Urine Ketones Urine Blood Urine Nitrate Urine Bilirubin Urine Urobilinogen Ur Leukocyte Esterase Urine RBC (Auto) Urine Microscopic WBC Ur Squamous Epith Cells Amorphous Sediment Urine Bacteria Ur Yeast w Hyphae Stool Occult Blood Blood Type Antibody Screen Crossmatch BBK History Checked Assessment & Plan (1) Respiratory failure Status: Acute (2) [id number] kidney injury Status: Acute (3) Anemia Status: Acute Priority: High (4) DMII (diabetes mellitus, type 2) Status: Chronic Priority: High
[2018-09-07] MEDS ORDERED: Nitroglycerin 2% 15 INCH/30 GM TUBE TOP SCH (09:00)
[2018-09-07] MEDS: Nitroglycerin 2% Ointment Foilpak UD TOP SCH ×4 (09:12→22:02)
--- NOTE | 2018-09-07 09:18 | CARD ---
APPROVED REPORT Date of service: 09/07/2018 EKG Measurement Heart [id number] <Conclusion> Normal sinus rhythm Nonspecific ST and T wave abnormality Abnormal ECG
--- NOTE | 2018-09-07 09:25 | CP.CCUPN ---
<Lloyd Ch - Last Filed: 09/07/18 10:57> CCU Subjective - Physician Review Subjective (Free Text): 09/07/18 09:25 83 y/o M was transferred to ICU from ER as pt presented with chest pain, SOB, abnormal EKG, elevated troponin, hyperkalemia anemia and declining renal function. Pt developed severe dyspnea and respiratory distress, was intubated, IO line access and then Femoral IV line obtained, pt stabilized at ED. Today, pt was seen and examined by bedside, s/p 2 PRBC's transfused, is on sedation and intubated. No new events reported. -Echocardiogram from 07/11/17, showed severe aortic stenosis (valve size 0.83cm2), with EF 55-60%, mild concentric LV hypertrophy . -PMHx: Chronic anemia, CKD stage 4, Severe Aortic Stenosis, DM, HTN. CCU Objective - Vital Signs / Intake & Output Vital Signs (Last 4 hours): Vital Signs Temp Pulse Resp BP Pulse Ox 09/07/18 09:12 77 141/69 09/07/18 08:00 97.7 F 78 17 138/72 100 09/07/18 06:00 79 17 131/69 100 Intake and Output (Last 8hrs): Intake & Output 09/06/18 09/07/18 09/07/18 22:59 06:59 14:59 Intake Total 0 1520 Output Total 210 260 Balance -210 1260 Weight 63.503 kg 73.936 kg Intake: IV 0 0 Intake, Piggyback 100 Blood Product 0 1295 Red Blood Cells Cp2d As3 325 Lr Unit [id number] Red Blood Cells Cpd As1 0 325 Lr Unit [id number] Other 125 Red Blood Cells Cp2d As3 85 Lr Unit [id number] Red Blood Cells Cpd As1 40 Lr Unit [id number] Output: Urine 210 260 Urethral (Garza) 210 260 Other: # Bowel Movements 0 - Physical Exam Head: Positive for: Atraumatic, Normocephalic Extroacular Muscles: Positive for: EOMI Ears: Positive for: Normal Mouth: Positive for: Dry Respiratory/Chest: Positive for: Rales, Other (intubated) Cardiovascular: Positive for: Murmurs, Normal S1, S2 Abdomen: Positive for: Normal Bowel Sounds Upper Extremity: Positive for: Normal Inspection Lower Extremity: Positive for: Normal Inspection Skin: Positive for: Warm, Dry - Medications Active Medications: Active Medications Generic Name Dose Route Start Last Admin Trade Name Jp PRN Reason Stop Dose Admin Aspirin 325 mg 09/07/18 09:00 09/07/18 09:11 Aspirin PO 325 mg DAILY ASHLEY Administration Enoxaparin Sodium 70 mg 09/07/18 09:00 Lovenox SC DAILY [facility] Protocol Nitroglycerin 1 ea 09/07/18 09:00 09/07/18 09:12 Nitro-Bid 2% Oint TOP 1 ea QID ASHLEY Administration Pantoprazole Sodium 40 mg 09/07/18 09:00 09/07/18 09:12 Protonix Inj IVP 40 mg DAILY ASHLEY Administration - Patient Studies Lab Studies: Lab Studies 09/07/18 09/07/18 09/07/18 Range/Units 08:52 05:00 05:00 WBC 16.7 H D (4.8-10.8) K/uL RBC 3.24 L (4.40-5.90) Mil/uL Hgb 8.5 L (12.0-18.0) g/dL Hct 26.6 L (35.0-51.0) % MCV 82.0 (80.0-94.0) fl MCH 26.1 L (27.0-31.0) pg MCHC 31.8 L (33.0-37.0) g/dL RDW 16.2 H (11.5-14.5) % Plt Count 204 (130-400) K/uL MPV (7.2-11.7) fl Neut % (Auto) (50.0-75.0) % Lymph % (Auto) (20.0-40.0) % Cobb % (Auto) (0.0-10.0) % Eos % (Auto) (0.0-4.0) % Baso % (Auto) (0.0-2.0) % Neut # (Auto) (1.8-7.0) K/uL Lymph # (Auto) (1.0-4.3) K/uL Cobb # (Auto) (0.0-0.8) K/uL Eos # (Auto) (0.0-0.7) K/uL Baso # (Auto) (0.0-0.2) K/uL Neutrophils % (Manual) (42-75) % Band Neutrophils % (0-2) % Lymphocytes % (Manual) (20-50) % Monocytes % (Manual) (0-10) % Eosinophils % (Manual) (0-7) % Platelet Estimate (NORMAL) Polychromasia Hypochromasia (manual) Poikilocytosis (manual Anisocytosis (manual) Microcytosis (manual) Target Cells Tear Drop Cells Ovalocytes Acanthocytes (Spur) PT (9.8-13.1) Seconds INR APTT (25.6-37.1) Seconds pCO2 (35-45) mm/Hg pO2 (80-100) mm/Hg HCO3 (21-28) mmol/L ABG pH (7.35-7.45) ABG Total CO2 (22-28) mmol/L ABG O2 Saturation (95-98) % ABG Base Excess (-2.0-3.0) mmol/L Rashawn Test ABG Potassium (3.6-5.2) mmol/L A-a O2 Difference mm/Hg Glucose (75-110) mg/dL Lactate (0.7-2.1) mmol/L Vent Mode Mechanical Rate FiO2 % Tidal Volume PEEP Sodium 137 (132-148) mmol/l Potassium 6.1 H (3.6-5.0) MMOL/L Chloride 106 (98-107) mmol/L Carbon Dioxide 21 L (22-30) mmol/L Anion Gap 16 (10-20) BUN 55 H (9-20) mg/dl Creatinine 4.5 H (0.8-1.5) mg/dl Est GFR ( Amer) 15 Est GFR (Non-Af Amer) 13 POC Glucose (mg/dL) 149 H (65-110) mg/dL Random Glucose 148 H (75-110) mg/dL Calcium 8.9 (8.4-10.2) mg/dL Phosphorus 4.2 (2.5-4.5) mg/dl Magnesium 2.1 (1.6-2.3) MG/DL Total Bilirubin 1.8 H (0.2-1.3) mg/dl AST 34 (17-59) U/L ALT 36 (21-72) U/L Alkaline Phosphatase 96 (38-126) U/L Total Creatine Kinase (55-170) U/L CK-MB (Mass) (0.0-3.38) ng/mL Troponin I 1.3400 H* (0.00-0.120) ng/mL NT-Pro-B Natriuret Pep 8410 H (0-900) pg/ml Total Protein 6.8 (6.3-8.2) G/DL Albumin 3.8 (3.5-5.0) g/dL Globulin 3.0 (2.2-3.9) gm/dL Albumin/Globulin Ratio 1.3 (1.0-2.1) Arterial Blood Potassium (3.6-5.2) mmol/L Urine Color (YELLOW) Urine Clarity (Clear) Urine pH (5.0-8.0) Ur Specific [place] (1.003-1.030) Urine Protein (NEGATIVE) mg/dL Urine Glucose (UA) (Normal) mg/dL Urine Ketones (NEGATIVE) mg/dL Urine Blood (NEGATIVE) Urine Nitrate (NEGATIVE) Urine Bilirubin (NEGATIVE) Urine Urobilinogen (0.2-1.0) mg/dL Ur Leukocyte Esterase (Negative) Luna/uL Urine RBC (Auto) (0-3) /hpf Urine Microscopic WBC (0-5) /hpf Ur Squamous Epith Cells (0-5) /hpf Amorphous Sediment (<OCC) /ul Urine Bacteria (<OCC) Ur Yeast w Hyphae (NEGATIVE) /lpf Stool Occult Blood (NEGATIVE) Blood Type Antibody Screen Crossmatch BBK History Checked 09/07/18 09/07/18 09/06/18 Range/Units 04:22 04:00 23:32 WBC (4.8-10.8) K/uL RBC (4.40-5.90) Mil/uL Hgb (12.0-18.0) g/dL Hct (35.0-51.0) % MCV (80.0-94.0) fl MCH (27.0-31.0) pg MCHC (33.0-37.0) g/dL RDW (11.5-14.5) % Plt Count (130-400) K/uL MPV (7.2-11.7) fl Neut % (Auto) (50.0-75.0) % Lymph % (Auto) (20.0-40.0) % Cobb % (Auto) (0.0-10.0) % Eos % (Auto) (0.0-4.0) % Baso % (Auto) (0.0-2.0) % Neut # (Auto) (1.8-7.0) K/uL Lymph # (Auto) (1.0-4.3) K/uL Cobb # (Auto) (0.0-0.8) K/uL Eos # (Auto) (0.0-0.7) K/uL Baso # (Auto) (0.0-0.2) K/uL Neutrophils % (Manual) (42-75) % Band Neutrophils % (0-2) % Lymphocytes % (Manual) (20-50) % Monocytes % (Manual) (0-10) % Eosinophils % (Manual) (0-7) % Platelet Estimate (NORMAL) Polychromasia Hypochromasia (manual) Poikilocytosis (manual Anisocytosis (manual) Microcytosis (manual) Target Cells Tear Drop Cells Ovalocytes Acanthocytes (Spur) PT (9.8-13.1) Seconds INR APTT (25.6-37.1) Seconds pCO2 34 L (35-45) mm/Hg pO2 135 H (80-100) mm/Hg HCO3 20.1 L (21-28) mmol/L ABG pH 7.35 (7.35-7.45) ABG Total CO2 19.8 L (22-28) mmol/L ABG O2 Saturation 100.0 H (95-98) % ABG Base Excess -6.2 L (-2.0-3.0) mmol/L Rashawn Test Yes ABG Potassium 5.9 H (3.6-5.2) mmol/L A-a O2 Difference 108.0 mm/Hg Glucose 147 H (75-110) mg/dL Lactate 0.9 (0.7-2.1) mmol/L Vent Mode A/c Mechanical Rate 14 FiO2 40.0 % Tidal Volume 450 PEEP 5 Sodium 132.0 (132-148) mmol/l Potassium (3.6-5.0) MMOL/L Chloride 107.0 (98-107) mmol/L Carbon Dioxide (22-30) mmol/L Anion Gap (10-20) BUN (9-20) mg/dl Creatinine (0.8-1.5) mg/dl Est GFR ( Amer) Est GFR (Non-Af Amer) POC Glucose (mg/dL) 139 H 100 (65-110) mg/dL Random Glucose (75-110) mg/dL Calcium (8.4-10.2) mg/dL Phosphorus (2.5-4.5) mg/dl Magnesium (1.6-2.3) MG/DL Total Bilirubin (0.2-1.3) mg/dl AST (17-59) U/L ALT (21-72) U/L Alkaline Phosphatase (38-126) U/L Total Creatine Kinase (55-170) U/L CK-MB (Mass) (0.0-3.38) ng/mL Troponin I (0.00-0.120) ng/mL NT-Pro-B Natriuret Pep (0-900) pg/ml Total Protein (6.3-8.2) G/DL Albumin (3.5-5.0) g/dL Globulin (2.2-3.9) gm/dL Albumin/Globulin Ratio (1.0-2.1) Arterial Blood Potassium 5.9 H (3.6-5.2) mmol/L Urine Color (YELLOW) Urine Clarity (Clear) Urine pH (5.0-8.0) Ur Specific [place] (1.003-1.030) Urine Protein (NEGATIVE) mg/dL Urine Glucose (UA) (Normal) mg/dL Urine Ketones (NEGATIVE) mg/dL Urine Blood (NEGATIVE) Urine Nitrate (NEGATIVE) Urine Bilirubin (NEGATIVE) Urine Urobilinogen (0.2-1.0) mg/dL Ur Leukocyte Esterase (Negative) Luna/uL Urine RBC (Auto) (0-3) /hpf Urine Microscopic WBC (0-5) /hpf Ur Squamous Epith Cells (0-5) /hpf Amorphous Sediment (<OCC) /ul Urine Bacteria (<OCC) Ur Yeast w Hyphae (NEGATIVE) /lpf Stool Occult Blood (NEGATIVE) Blood Type Antibody Screen Crossmatch BBK History Checked 09/06/18 09/06/18 09/06/18 Range/Units 22:15 21:37 18:12 WBC (4.8-10.8) K/uL RBC (4.40-5.90) Mil/uL Hgb (12.0-18.0) g/dL Hct (35.0-51.0) % MCV (80.0-94.0) fl MCH (27.0-31.0) pg MCHC (33.0-37.0) g/dL RDW (11.5-14.5) % Plt Count (130-400) K/uL MPV (7.2-11.7) fl Neut % (Auto) (50.0-75.0) % Lymph % (Auto) (20.0-40.0) % Cobb % (Auto) (0.0-10.0) % Eos % (Auto) (0.0-4.0) % Baso % (Auto) (0.0-2.0) % Neut # (Auto) (1.8-7.0) K/uL Lymph # (Auto) (1.0-4.3) K/uL Cobb # (Auto) (0.0-0.8) K/uL Eos # (Auto) (0.0-0.7) K/uL Baso # (Auto) (0.0-0.2) K/uL Neutrophils % (Manual) (42-75) % Band Neutrophils % (0-2) % Lymphocytes % (Manual) (20-50) % Monocytes % (Manual) (0-10) % Eosinophils % (Manual) (0-7) % Platelet Estimate (NORMAL) Polychromasia Hypochromasia (manual) Poikilocytosis (manual Anisocytosis (manual) Microcytosis (manual) Target Cells Tear Drop Cells Ovalocytes Acanthocytes (Spur) PT (9.8-13.1) Seconds INR APTT (25.6-37.1) Seconds pCO2 38 (35-45) mm/Hg pO2 153 H (80-100) mm/Hg HCO3 21.2 (21-28) mmol/L ABG pH 7.34 L (7.35-7.45) ABG Total CO2 21.7 L (22-28) mmol/L ABG O2 Saturation 99.4 H (95-98) % ABG Base Excess -4.8 L (-2.0-3.0) mmol/L Rashawn Test Yes ABG Potassium 5.5 H (3.6-5.2) mmol/L A-a O2 Difference 156.0 mm/Hg Glucose 90 (75-110) mg/dL Lactate 1.8 (0.7-2.1) mmol/L Vent Mode A/c Mechanical Rate 12 FiO2 50.0 % Tidal Volume 500 PEEP 5 Sodium 136.0 (132-148) mmol/l Potassium (3.6-5.0) MMOL/L Chloride 110.0 H (98-107) mmol/L Carbon Dioxide (22-30) mmol/L Anion Gap (10-20) BUN (9-20) mg/dl Creatinine (0.8-1.5) mg/dl Est GFR ( Amer) Est GFR (Non-Af Amer) POC Glucose (mg/dL) 88 289 H (65-110) mg/dL Random Glucose (75-110) mg/dL Calcium (8.4-10.2) mg/dL Phosphorus (2.5-4.5) mg/dl Magnesium (1.6-2.3) MG/DL Total Bilirubin (0.2-1.3) mg/dl AST (17-59) U/L ALT (21-72) U/L Alkaline Phosphatase (38-126) U/L Total Creatine Kinase (55-170) U/L CK-MB (Mass) (0.0-3.38) ng/mL Troponin I (0.00-0.120) ng/mL NT-Pro-B Natriuret Pep (0-900) pg/ml Total Protein (6.3-8.2) G/DL Albumin (3.5-5.0) g/dL Globulin (2.2-3.9) gm/dL Albumin/Globulin Ratio (1.0-2.1) Arterial Blood Potassium 5.5 H (3.6-5.2) mmol/L Urine Color (YELLOW) Urine Clarity (Clear) Urine pH (5.0-8.0) Ur Specific [place] (1.003-1.030) Urine Protein (NEGATIVE) mg/dL Urine Glucose (UA) (Normal) mg/dL Urine Ketones (NEGATIVE) mg/dL Urine Blood (NEGATIVE) Urine Nitrate (NEGATIVE) Urine Bilirubin (NEGATIVE) Urine Urobilinogen (0.2-1.0) mg/dL Ur Leukocyte Esterase (Negative) Luna/uL Urine RBC (Auto) (0-3) /hpf Urine Microscopic WBC (0-5) /hpf Ur Squamous Epith Cells (0-5) /hpf Amorphous Sediment (<OCC) /ul Urine Bacteria (<OCC) Ur Yeast w Hyphae (NEGATIVE) /lpf Stool Occult Blood (NEGATIVE) Blood Type Antibody Screen Crossmatch BBK History Checked 09/06/18 09/06/18 09/06/18 Range/Units 17:49 17:49 16:48 WBC (4.8-10.8) K/uL RBC (4.40-5.90) Mil/uL Hgb (12.0-18.0) g/dL Hct (35.0-51.0) % MCV (80.0-94.0) fl MCH (27.0-31.0) pg MCHC (33.0-37.0) g/dL RDW (11.5-14.5) % Plt Count (130-400) K/uL MPV (7.2-11.7) fl Neut % (Auto) (50.0-75.0) % Lymph % (Auto) (20.0-40.0) % Cobb % (Auto) (0.0-10.0) % Eos % (Auto) (0.0-4.0) % Baso % (Auto) (0.0-2.0) % Neut # (Auto) (1.8-7.0) K/uL Lymph # (Auto) (1.0-4.3) K/uL Cobb # (Auto) (0.0-0.8) K/uL Eos # (Auto) (0.0-0.7) K/uL Baso # (Auto) (0.0-0.2) K/uL Neutrophils % (Manual) (42-75) % Band Neutrophils % (0-2) % Lymphocytes % (Manual) (20-50) % Monocytes % (Manual) (0-10) % Eosinophils % (Manual) (0-7) % Platelet Estimate (NORMAL) Polychromasia Hypochromasia (manual) Poikilocytosis (manual Anisocytosis (manual) Microcytosis (manual) Target Cells Tear Drop Cells Ovalocytes Acanthocytes (Spur) PT 12.2 (9.8-13.1) Seconds INR 1.1 APTT 25.6 (25.6-37.1) Seconds pCO2 (35-45) mm/Hg pO2 (80-100) mm/Hg HCO3 (21-28) mmol/L ABG pH (7.35-7.45) ABG Total CO2 (22-28) mmol/L ABG O2 Saturation (95-98) % ABG Base Excess (-2.0-3.0) mmol/L Rashawn Test ABG Potassium (3.6-5.2) mmol/L A-a O2 Difference mm/Hg Glucose (75-110) mg/dL Lactate (0.7-2.1) mmol/L Vent Mode Mechanical Rate FiO2 % Tidal Volume PEEP Sodium (132-148) mmol/l Potassium 6.2 H* (3.6-5.0) MMOL/L Chloride (98-107) mmol/L Carbon Dioxide (22-30) mmol/L Anion Gap (10-20) BUN (9-20) mg/dl Creatinine (0.8-1.5) mg/dl Est GFR ( Amer) Est GFR (Non-Af Amer) POC Glucose (mg/dL) (65-110) mg/dL Random Glucose (75-110) mg/dL Calcium (8.4-10.2) mg/dL Phosphorus (2.5-4.5) mg/dl Magnesium (1.6-2.3) MG/DL Total Bilirubin (0.2-1.3) mg/dl AST (17-59) U/L ALT (21-72) U/L Alkaline Phosphatase (38-126) U/L Total Creatine Kinase (55-170) U/L CK-MB (Mass) (0.0-3.38) ng/mL Troponin I (0.00-0.120) ng/mL NT-Pro-B Natriuret Pep (0-900) pg/ml Total Protein (6.3-8.2) G/DL Albumin (3.5-5.0) g/dL Globulin (2.2-3.9) gm/dL Albumin/Globulin Ratio (1.0-2.1) Arterial Blood Potassium (3.6-5.2) mmol/L Urine Color (YELLOW) Urine Clarity (Clear) Urine pH (5.0-8.0) Ur Specific [place] (1.003-1.030) Urine Protein (NEGATIVE) mg/dL Urine Glucose (UA) (Normal) mg/dL Urine Ketones (NEGATIVE) mg/dL Urine Blood (NEGATIVE) Urine Nitrate (NEGATIVE) Urine Bilirubin (NEGATIVE) Urine Urobilinogen (0.2-1.0) mg/dL Ur Leukocyte Esterase (Negative) Luna/uL Urine RBC (Auto) (0-3) /hpf Urine Microscopic WBC (0-5) /hpf Ur Squamous Epith Cells (0-5) /hpf Amorphous Sediment (<OCC) /ul Urine Bacteria (<OCC) Ur Yeast w Hyphae (NEGATIVE) /lpf Stool Occult Blood Negative (NEGATIVE) Blood Type Antibody Screen Crossmatch BBK History Checked 09/06/18 09/06/18 09/06/18 Range/Units 16:48 16:48 16:33 WBC 10.3 (4.8-10.8) K/uL RBC 2.63 L (4.40-5.90) Mil/uL Hgb 6.6 L (12.0-18.0) g/dL Hct 21.4 L (35.0-51.0) % MCV 81.5 (80.0-94.0) fl MCH 25.1 L (27.0-31.0) pg MCHC 30.8 L (33.0-37.0) g/dL RDW 16.8 H (11.5-14.5) % Plt Count 225 (130-400) K/uL MPV 8.4 (7.2-11.7) fl Neut % (Auto) 89.2 H (50.0-75.0) % Lymph % (Auto) 4.3 L (20.0-40.0) % Cobb % (Auto) 5.7 (0.0-10.0) % Eos % (Auto) 0.7 (0.0-4.0) % Baso % (Auto) 0.1 (0.0-2.0) % Neut # (Auto) 9.2 H (1.8-7.0) K/uL Lymph # (Auto) 0.4 L (1.0-4.3) K/uL [place] # (Auto) 0.6 (0.0-0.8) K/uL Eos # (Auto) 0.1 (0.0-0.7) K/uL Baso # (Auto) 0.0 (0.0-0.2) K/uL Neutrophils % (Manual) 86 H (42-75) % Band Neutrophils % 1 (0-2) % Lymphocytes % (Manual) 7 L (20-50) % Monocytes % (Manual) 5 (0-10) % Eosinophils % (Manual) 1 (0-7) % Platelet Estimate Normal (NORMAL) Polychromasia Slight Hypochromasia (manual) Moderate Poikilocytosis (manual Moderate Anisocytosis (manual) Marked Microcytosis (manual) Moderate Target Cells Slight Tear Drop Cells Slight Ovalocytes Slight Acanthocytes (Spur) Slight PT (9.8-13.1) Seconds INR APTT (25.6-37.1) Seconds pCO2 (35-45) mm/Hg pO2 (80-100) mm/Hg HCO3 (21-28) mmol/L ABG pH (7.35-7.45) ABG Total CO2 (22-28) mmol/L ABG O2 Saturation (95-98) % ABG Base Excess (-2.0-3.0) mmol/L Rashawn Test ABG Potassium (3.6-5.2) mmol/L A-a O2 Difference mm/Hg Glucose (75-110) mg/dL Lactate (0.7-2.1) mmol/L Vent Mode Mechanical Rate FiO2 % Tidal Volume PEEP Sodium 138 (132-148) mmol/l Potassium 6.6 H* D (3.6-5.0) MMOL/L Chloride 111 H (98-107) mmol/L Carbon Dioxide 18 L (22-30) mmol/L Anion Gap 16 (10-20) BUN 45 H (9-20) mg/dl Creatinine 3.9 H (0.8-1.5) mg/dl Est GFR ( Amer) 18 Est GFR (Non-Af Amer) 15 POC Glucose (mg/dL) (65-110) mg/dL Random Glucose 146 H (75-110) mg/dL Calcium 9.4 (8.4-10.2) mg/dL Phosphorus (2.5-4.5) mg/dl Magnesium (1.6-2.3) MG/DL Total Bilirubin 0.3 (0.2-1.3) mg/dl AST 23 (17-59) U/L ALT 31 (21-72) U/L Alkaline Phosphatase 94 (38-126) U/L Total Creatine Kinase (55-170) U/L CK-MB (Mass) (0.0-3.38) ng/mL Troponin I 0.0690 (0.00-0.120) ng/mL NT-Pro-B Natriuret Pep 6840 H (0-900) pg/ml Total Protein 6.8 (6.3-8.2) G/DL Albumin 3.9 (3.5-5.0) g/dL Globulin 3.0 (2.2-3.9) gm/dL Albumin/Globulin Ratio 1.3 (1.0-2.1) Arterial Blood Potassium (3.6-5.2) mmol/L Urine Color (YELLOW) Urine Clarity (Clear) Urine pH (5.0-8.0) Ur Specific [place] (1.003-1.030) Urine Protein (NEGATIVE) mg/dL Urine Glucose (UA) (Normal) mg/dL Urine Ketones (NEGATIVE) mg/dL Urine Blood (NEGATIVE) Urine Nitrate (NEGATIVE) Urine Bilirubin (NEGATIVE) Urine Urobilinogen (0.2-1.0) mg/dL Ur Leukocyte Esterase (Negative) Luna/uL Urine RBC (Auto) (0-3) /hpf Urine Microscopic WBC (0-5) /hpf Ur Squamous Epith Cells (0-5) /hpf Amorphous Sediment (<OCC) /ul Urine Bacteria (<OCC) Ur Yeast w Hyphae (NEGATIVE) /lpf Stool Occult Blood (NEGATIVE) Blood Type A POSITIVE Antibody Screen Negative Crossmatch See Detail BBK History Checked Patient has bt 09/06/18 09/06/18 09/06/18 Range/Units 16:23 15:59 10:00 WBC (4.8-10.8) K/uL RBC (4.40-5.90) Mil/uL Hgb (12.0-18.0) g/dL Hct (35.0-51.0) % MCV (80.0-94.0) fl MCH (27.0-31.0) pg MCHC (33.0-37.0) g/dL RDW (11.5-14.5) % Plt Count (130-400) K/uL MPV (7.2-11.7) fl Neut % (Auto) (50.0-75.0) % Lymph % (Auto) (20.0-40.0) % [place] % (Auto) (0.0-10.0) % Eos % (Auto) (0.0-4.0) % Baso % (Auto) (0.0-2.0) % Neut # (Auto) (1.8-7.0) K/uL Lymph # (Auto) (1.0-4.3) K/uL [place] # (Auto) (0.0-0.8) K/uL Eos # (Auto) (0.0-0.7) K/uL Baso # (Auto) (0.0-0.2) K/uL Neutrophils % (Manual) (42-75) % Band Neutrophils % (0-2) % Lymphocytes % (Manual) (20-50) % Monocytes % (Manual) (0-10) % Eosinophils % (Manual) (0-7) % Platelet Estimate (NORMAL) Polychromasia Hypochromasia (manual) Poikilocytosis (manual Anisocytosis (manual) Microcytosis (manual) Target Cells Tear Drop Cells Ovalocytes Acanthocytes (Spur) PT (9.8-13.1) Seconds INR APTT (25.6-37.1) Seconds pCO2 (35-45) mm/Hg pO2 (80-100) mm/Hg HCO3 (21-28) mmol/L ABG pH (7.35-7.45) ABG Total CO2 (22-28) mmol/L ABG O2 Saturation (95-98) % ABG Base Excess (-2.0-3.0) mmol/L Rashawn Test ABG Potassium (3.6-5.2) mmol/L A-a O2 Difference mm/Hg Glucose (75-110) mg/dL Lactate (0.7-2.1) mmol/L Vent Mode Mechanical Rate FiO2 % Tidal Volume PEEP Sodium (132-148) mmol/l Potassium (3.6-5.0) MMOL/L Chloride (98-107) mmol/L Carbon Dioxide (22-30) mmol/L Anion Gap (10-20) BUN (9-20) mg/dl Creatinine (0.8-1.5) mg/dl Est GFR ( Amer) Est GFR (Non-Af Amer) POC Glucose (mg/dL) 97 (65-110) mg/dL Random Glucose (75-110) mg/dL Calcium (8.4-10.2) mg/dL Phosphorus (2.5-4.5) mg/dl Magnesium (1.6-2.3) MG/DL Total Bilirubin (0.2-1.3) mg/dl AST (17-59) U/L ALT (21-72) U/L Alkaline Phosphatase (38-126) U/L Total Creatine Kinase 90 (55-170) U/L CK-MB (Mass) 3.54 H (0.0-3.38) ng/mL Troponin I 0.1720 H* (0.00-0.120) ng/mL NT-Pro-B Natriuret Pep (0-900) pg/ml Total Protein (6.3-8.2) G/DL Albumin (3.5-5.0) g/dL Globulin (2.2-3.9) gm/dL Albumin/Globulin Ratio (1.0-2.1) Arterial Blood Potassium (3.6-5.2) mmol/L Urine Color Yellow (YELLOW) Urine Clarity Cloudy (Clear) Urine pH 5.0 (5.0-8.0) Ur Specific [place] 1.016 (1.003-1.030) Urine Protein 30 (NEGATIVE) mg/dL Urine Glucose (UA) Neg (Normal) mg/dL Urine Ketones Negative (NEGATIVE) mg/dL Urine Blood Moderate (NEGATIVE) Urine Nitrate Negative (NEGATIVE) Urine Bilirubin Negative (NEGATIVE) Urine Urobilinogen 0.2-1.0 (0.2-1.0) mg/dL Ur Leukocyte Esterase Trace (Negative) Luna/uL Urine RBC (Auto) 20 H (0-3) /hpf Urine Microscopic WBC 9 H (0-5) /hpf Ur Squamous Epith Cells 2 (0-5) /hpf Amorphous Sediment Few H (<OCC) /ul Urine Bacteria Few H (<OCC) Ur Yeast w Hyphae 1-2 (NEGATIVE) /lpf Stool Occult Blood (NEGATIVE) Blood Type Antibody Screen Crossmatch BBK History Checked Laboratory Results - last 24 hr 09/06/18 09/06/18 09/06/18 10:00 15:59 16:23 WBC RBC Hgb Hct MCV MCH MCHC RDW Plt Count MPV Neut % (Auto) Lymph % (Auto) Cobb % (Auto) Eos % (Auto) Baso % (Auto) Neut # (Auto) Lymph # (Auto) Cobb # (Auto) Eos # (Auto) Baso # (Auto) Neutrophils % (Manual) Band Neutrophils % Lymphocytes % (Manual) Monocytes % (Manual) Eosinophils % (Manual) Platelet Estimate Polychromasia Hypochromasia (manual) Poikilocytosis (manual Anisocytosis (manual) Microcytosis (manual) Target Cells Tear Drop Cells Ovalocytes Acanthocytes (Spur) PT INR APTT pCO2 pO2 HCO3 ABG pH ABG Total CO2 ABG O2 Saturation ABG Base Excess Rashawn Test ABG Potassium A-a O2 Difference Glucose Lactate Vent Mode Mechanical Rate FiO2 Tidal Volume PEEP Sodium Potassium Chloride Carbon Dioxide Anion Gap BUN Creatinine Est GFR ( Amer) Est GFR (Non-Af Amer) POC Glucose (mg/dL) 97 Random Glucose Calcium Phosphorus Magnesium Total Bilirubin AST ALT Alkaline Phosphatase Total Creatine Kinase 90 CK-MB (Mass) 3.54 H Troponin I 0.1720 H* NT-Pro-B Natriuret Pep Total Protein Albumin Globulin Albumin/Globulin Ratio Arterial Blood Potassium Urine Color Yellow Urine Clarity Cloudy Urine pH 5.0 Ur Specific [place] 1.016 Urine Protein 30 Urine Glucose (UA) Neg Urine Ketones Negative Urine Blood Moderate Urine Nitrate Negative Urine Bilirubin Negative Urine Urobilinogen 0.2-1.0 Ur Leukocyte Esterase Trace Urine RBC (Auto) 20 H Urine Microscopic WBC 9 H Ur Squamous Epith Cells 2 Amorphous Sediment Few H Urine Bacteria Few H Ur Yeast w Hyphae 1-2 Stool Occult Blood Blood Type Antibody Screen Crossmatch BBK History Checked 09/06/18 09/06/18 09/06/18 16:33 16:48 16:48 WBC 10.3 RBC 2.63 L Hgb 6.6 L Hct 21.4 L MCV 81.5 MCH 25.1 L MCHC 30.8 L RDW 16.8 H Plt Count 225 MPV 8.4 Neut % (Auto) 89.2 H Lymph % (Auto) 4.3 L Cobb % (Auto) 5.7 Eos % (Auto) 0.7 Baso % (Auto) 0.1 Neut # (Auto) 9.2 H Lymph # (Auto) 0.4 L Cobb # (Auto) 0.6 Eos # (Auto) 0.1 Baso # (Auto) 0.0 Neutrophils % (Manual) 86 H Band Neutrophils % 1 Lymphocytes % (Manual) 7 L Monocytes % (Manual) 5 Eosinophils % (Manual) 1 Platelet Estimate Normal Polychromasia Slight Hypochromasia (manual) Moderate Poikilocytosis (manual Moderate Anisocytosis (manual) Marked Microcytosis (manual) Moderate Target Cells Slight Tear Drop Cells Slight Ovalocytes Slight Acanthocytes (Spur) Slight PT INR APTT pCO2 pO2 HCO3 ABG pH ABG Total CO2 ABG O2 Saturation ABG Base Excess Rashawn Test ABG Potassium A-a O2 Difference Glucose Lactate Vent Mode Mechanical Rate FiO2 Tidal Volume PEEP Sodium 138 Potassium 6.6 H* D Chloride 111 H Carbon Dioxide 18 L Anion Gap 16 BUN 45 H Creatinine 3.9 H Est GFR ( Amer) 18 Est GFR (Non-Af Amer) 15 POC Glucose (mg/dL) Random Glucose 146 H Calcium 9.4 Phosphorus Magnesium Total Bilirubin 0.3 AST 23 ALT 31 Alkaline Phosphatase 94 Total Creatine Kinase CK-MB (Mass) Troponin I 0.0690 NT-Pro-B Natriuret Pep 6840 H Total Protein 6.8 Albumin 3.9 Globulin 3.0 Albumin/Globulin Ratio 1.3 Arterial Blood Potassium Urine Color Urine Clarity Urine pH Ur Specific [place] Urine Protein Urine Glucose (UA) Urine Ketones Urine Blood Urine Nitrate Urine Bilirubin Urine Urobilinogen Ur Leukocyte Esterase Urine RBC (Auto) Urine Microscopic WBC Ur Squamous Epith Cells Amorphous Sediment Urine Bacteria Ur Yeast w Hyphae Stool Occult Blood Blood Type A POSITIVE Antibody Screen Negative Crossmatch See Detail BBK History Checked Patient has bt 09/06/18 09/06/18 09/06/18 16:48 17:49 17:49 WBC RBC Hgb Hct MCV MCH MCHC RDW Plt Count MPV Neut % (Auto) Lymph % (Auto) Cobb % (Auto) Eos % (Auto) Baso % (Auto) Neut # (Auto) Lymph # (Auto) Cobb # (Auto) Eos # (Auto) Baso # (Auto) Neutrophils % (Manual) Band Neutrophils % Lymphocytes % (Manual) Monocytes % (Manual) Eosinophils % (Manual) Platelet Estimate Polychromasia Hypochromasia (manual) Poikilocytosis (manual Anisocytosis (manual) Microcytosis (manual) Target Cells Tear Drop Cells Ovalocytes Acanthocytes (Spur) PT 12.2 INR 1.1 APTT 25.6 pCO2 pO2 HCO3 ABG pH ABG Total CO2 ABG O2 Saturation ABG Base Excess Rashawn Test ABG Potassium A-a O2 Difference Glucose Lactate Vent Mode Mechanical Rate FiO2 Tidal Volume PEEP Sodium Potassium 6.2 H* Chloride Carbon Dioxide Anion Gap BUN Creatinine Est GFR ( Amer) Est GFR (Non-Af Amer) POC Glucose (mg/dL) Random Glucose Calcium Phosphorus Magnesium Total Bilirubin AST ALT Alkaline Phosphatase Total Creatine Kinase CK-MB (Mass) Troponin I NT-Pro-B Natriuret Pep Total Protein Albumin Globulin Albumin/Globulin Ratio Arterial Blood Potassium Urine Color Urine Clarity Urine pH Ur Specific [place] Urine Protein Urine Glucose (UA) Urine Ketones Urine Blood Urine Nitrate Urine Bilirubin Urine Urobilinogen Ur Leukocyte Esterase Urine RBC (Auto) Urine Microscopic WBC Ur Squamous Epith Cells Amorphous Sediment Urine Bacteria Ur Yeast w Hyphae Stool Occult Blood Negative Blood Type Antibody Screen Crossmatch BBK History Checked 09/06/18 09/06/18 09/06/18 18:12 21:37 22:15 WBC RBC Hgb Hct MCV MCH MCHC RDW Plt Count MPV Neut % (Auto) Lymph % (Auto) Cobb % (Auto) Eos % (Auto) Baso % (Auto) Neut # (Auto) Lymph # (Auto) Cobb # (Auto) Eos # (Auto) Baso # (Auto) Neutrophils % (Manual) Band Neutrophils % Lymphocytes % (Manual) Monocytes % (Manual) Eosinophils % (Manual) Platelet Estimate Polychromasia Hypochromasia (manual) Poikilocytosis (manual Anisocytosis (manual) Microcytosis (manual) Target Cells Tear Drop Cells Ovalocytes Acanthocytes (Spur) PT INR APTT pCO2 38 pO2 153 H HCO3 21.2 ABG pH 7.34 L ABG Total CO2 21.7 L ABG O2 Saturation 99.4 H ABG Base Excess -4.8 L Rashawn Test Yes ABG Potassium 5.5 H A-a O2 Difference 156.0 Glucose 90 Lactate 1.8 Vent Mode A/c Mechanical Rate 12 FiO2 50.0 Tidal Volume 500 PEEP 5 Sodium 136.0 Potassium Chloride 110.0 H Carbon Dioxide Anion Gap BUN Creatinine Est GFR ( Amer) Est GFR (Non-Af Amer) POC Glucose (mg/dL) 289 H 88 Random Glucose Calcium Phosphorus Magnesium Total Bilirubin AST ALT Alkaline Phosphatase Total Creatine Kinase CK-MB (Mass) Troponin I NT-Pro-B Natriuret Pep Total Protein Albumin Globulin Albumin/Globulin Ratio Arterial Blood Potassium 5.5 H Urine Color Urine Clarity Urine pH Ur Specific [place] Urine Protein Urine Glucose (UA) Urine Ketones Urine Blood Urine Nitrate Urine Bilirubin Urine Urobilinogen Ur Leukocyte Esterase Urine RBC (Auto) Urine Microscopic WBC Ur Squamous Epith Cells Amorphous Sediment Urine Bacteria Ur Yeast w Hyphae Stool Occult Blood Blood Type Antibody Screen Crossmatch BBK History Checked 09/06/18 09/07/18 09/07/18 23:32 04:00 04:22 WBC RBC Hgb Hct MCV MCH MCHC RDW Plt Count MPV Neut % (Auto) Lymph % (Auto) Cobb % (Auto) Eos % (Auto) Baso % (Auto) Neut # (Auto) Lymph # (Auto) Cobb # (Auto) Eos # (Auto) Baso # (Auto) Neutrophils % (Manual) Band Neutrophils % Lymphocytes % (Manual) Monocytes % (Manual) Eosinophils % (Manual) Platelet Estimate Polychromasia Hypochromasia (manual) Poikilocytosis (manual Anisocytosis (manual) Microcytosis (manual) Target Cells Tear Drop Cells Ovalocytes Acanthocytes (Spur) PT INR APTT pCO2 34 L pO2 135 H HCO3 20.1 L ABG pH 7.35 ABG Total CO2 19.8 L ABG O2 Saturation 100.0 H ABG Base Excess -6.2 L Rashawn Test Yes ABG Potassium 5.9 H A-a O2 Difference 108.0 Glucose 147 H Lactate 0.9 Vent Mode A/c Mechanical Rate 14 FiO2 40.0 Tidal Volume 450 PEEP 5 Sodium 132.0 Potassium Chloride 107.0 Carbon Dioxide Anion Gap BUN Creatinine Est GFR ( Amer) Est GFR (Non-Af Amer) POC Glucose (mg/dL) 100 139 H Random Glucose Calcium Phosphorus Magnesium Total Bilirubin AST ALT Alkaline Phosphatase Total Creatine Kinase CK-MB (Mass) Troponin I NT-Pro-B Natriuret Pep Total Protein Albumin Globulin Albumin/Globulin Ratio Arterial Blood Potassium 5.9 H Urine Color Urine Clarity Urine pH Ur Specific [place] Urine Protein Urine Glucose (UA) Urine Ketones Urine Blood Urine Nitrate Urine Bilirubin Urine Urobilinogen Ur Leukocyte Esterase Urine RBC (Auto) Urine Microscopic WBC Ur Squamous Epith Cells Amorphous Sediment Urine Bacteria Ur Yeast w Hyphae Stool Occult Blood Blood Type Antibody Screen Crossmatch BBK History Checked 09/07/18 09/07/18 09/07/18 05:00 05:00 08:52 WBC 16.7 H D RBC 3.24 L Hgb 8.5 L Hct 26.6 L MCV 82.0 MCH 26.1 L MCHC 31.8 L RDW 16.2 H Plt Count 204 MPV Neut % (Auto) Lymph % (Auto) Cobb % (Auto) Eos % (Auto) Baso % (Auto) Neut # (Auto) Lymph # (Auto) Cobb # (Auto) Eos # (Auto) Baso # (Auto) Neutrophils % (Manual) Band Neutrophils % Lymphocytes % (Manual) Monocytes % (Manual) Eosinophils % (Manual) Platelet Estimate Polychromasia Hypochromasia (manual) Poikilocytosis (manual Anisocytosis (manual) Microcytosis (manual) Target Cells Tear Drop Cells Ovalocytes Acanthocytes (Spur) PT INR APTT pCO2 pO2 HCO3 ABG pH ABG Total CO2 ABG O2 Saturation ABG Base Excess Rashawn Test ABG Potassium A-a O2 Difference Glucose Lactate Vent Mode Mechanical Rate FiO2 Tidal Volume PEEP Sodium 137 Potassium 6.1 H Chloride 106 Carbon Dioxide 21 L Anion Gap 16 BUN 55 H Creatinine 4.5 H Est GFR ( Amer) 15 Est GFR (Non-Af Amer) 13 POC Glucose (mg/dL) 149 H Random Glucose 148 H Calcium 8.9 Phosphorus 4.2 Magnesium 2.1 Total Bilirubin 1.8 H AST 34 ALT 36 Alkaline Phosphatase 96 Total Creatine Kinase CK-MB (Mass) Troponin I 1.3400 H* NT-Pro-B Natriuret Pep 8410 H Total Protein 6.8 Albumin 3.8 Globulin 3.0 Albumin/Globulin Ratio 1.3 Arterial Blood Potassium Urine Color Urine Clarity Urine pH Ur Specific [place] Urine Protein Urine Glucose (UA) Urine Ketones Urine Blood Urine Nitrate Urine Bilirubin Urine Urobilinogen Ur Leukocyte Esterase Urine RBC (Auto) Urine Microscopic WBC Ur Squamous Epith Cells Amorphous Sediment Urine Bacteria Ur Yeast w Hyphae Stool Occult Blood Blood Type Antibody Screen Crossmatch BBK History Checked EKG/Cardiology Studies: Cardiology / EKG Studies 09/06/18 16:06 EKG [ELECTROCARDIOGRAM] Stat Comment: Mode Of Transportation: PORTABLE Reason For Exam: SOB 09/06/18 17:20 EKG [ELECTROCARDIOGRAM] Stat Comment: Mode Of Transportation: PORTABLE Reason For Exam: SOB 09/07/18 09:00 EKG [ELECTROCARDIOGRAM] DAILY Comment: Mode Of Transportation: Reason For Exam: NSTEMI Fingerstick Blood Sugar Results: 139 Review of Systems - Review of Systems Systems not reviewed;Unavailable: Altered Mental Status Assessment/Plan - Assessment and Plan (Free Text) Assessment: 83 y/o M with a PMHx of severe aortic stenosis, Chronic kidney disease stage 4, HTN and DM admitted to ED due to acute flash pulmonary edema, hyperkalemia, anemia and declining renal function. PLAN: 1. Acute respiratory failure --Possibly due to pulmonary edema, heart failure or NSTEMI. --Intubated --CXR's appreciated. --F/U Echocardiogram 2. Acute heart failure --Hemodynamically stable. Hx of severe aortic stenosis. --Pro-BNP increasing from 6840 last night to 8410 this morning. EKG's x3 appre ciated --Troponin increasing 2.3-today. (need to rule out NSTEMI vs kidney failure related) --Lovenox 70 mg daily. --Nitroglycerin topical. --Due to cardiac issues, goal of Hgb >9.0 --Will transfue 2 more units of PRBC's. --Will give Furosemide 100mg after blood transfusion. --Cardiology on board, Dr Pena, recommendations appreciated --F/U Echocardiogram 3. Acute kidney injury on chronic kidney disease --Creatinine increasing, 4.5. --Nephrology on board, Dr Nair, recommendations appreciated --F/U BMP this afternoon 4. Hyperkalemia --S/P Calcium gluconate, Kayexalate 60 mg given last night and 30mg given this morning --No bowel movements. --Albuterol 12.5mg --F/U BMP this afternoon 5. Acute normocytic anemia --Most probably due to CKD --S/P 2 PRBC's. Hgb 8.5 now --Due to cardiac issues, goal of Hgb >9.0 --Will transfue 2 more units of PRBC's. 6. Prophylaxis --Pantoprazole --SCD's Case discussed with Dr Edmundo Laguna PGY-2. - Date & Time Date: 09/07/18 Time: 10:53 <Joselito Wyatt - Last Filed: 09/07/18 11:35> CCU Subjective - Physician Review Subjective (Free Text): Attestation: Patient seen and examined at the bedside with Resident Dr. Ivis Ch; and I agree with his outline of plans and management documented above and below, reflecting my review of all applicable clinical data, and participation in the care of the patient throughout the day in ICU; today, September 07, 2018. Time spent with this patient did not overlap with any other provider's medical or critical care time. Additionally the code selected for the services rendered in this note includes the time spent: talking to the patients family, associated physicians and reviewing hospital data/results not listed here which extended to a total of 40 minutes of critical care.
--- NOTE | 2018-09-07 09:35 | CARD ---
APPROVED REPORT Date of service: 09/06/2018 EKG Measurement Heart [id number] <Conclusion> Normal sinus rhythm Possible Left atrial enlargement LVH ST abnormality, possible anterolateral subendocardial injury Prolonged QT Abnormal ECG
--- NOTE | 2018-09-07 09:36 | CARD ---
APPROVED REPORT Date of service: 09/06/2018 EKG Measurement Heart [id number] <Conclusion> Normal sinus rhythm LVH Marked ST abnormality, possible anterolateral subendocardial injury Abnormal ECG
--- NOTE | 2018-09-07 09:43 | CARD ---
APPROVED REPORT Date of service: 09/06/2018 EKG Measurement Heart [id number] <Conclusion> Normal sinus rhythm Moderate voltage criteria for LVH, may be normal variant Nonspecific ST changes Abnormal ECG
[2018-09-07] MEDS ORDERED: Albuterol 0.083% Inhal Sol (2.5 mg/3 mL) UD INH ONE (10:28)
--- NOTE | 2018-09-07 12:01 | RAD ---
Date of service: 09/06/2018 PROCEDURE: CHEST RADIOGRAPH, 1 VIEW HISTORY: chest pain COMPARISON: September 06, 2018. FINDINGS: LUNGS: Pulmonary vascular congestion. No focal pulmonary infiltrates. PLEURA: No pneumothorax or pleural fluid seen. CARDIOVASCULAR: No aortic atherosclerotic calcification present. OSSEOUS STRUCTURES: No significant abnormalities. VISUALIZED UPPER ABDOMEN: Normal. OTHER FINDINGS: None. IMPRESSION: Mild CHF. No discrete infiltrates nor evidence of pleural effusion.
--- NOTE | 2018-09-07 12:24 | RAD ---
Date of service: 09/06/2018 HISTORY: Post-intubation COMPARISON: September 06, 2018. FINDINGS: LUNGS: Worsening pulmonary edema. PLEURA: No significant pleural effusion identified, no pneumothorax apparent. CARDIOVASCULAR: No atherosclerotic calcification present Normal size heart. OSSEOUS STRUCTURES: No significant abnormalities. VISUALIZED UPPER ABDOMEN: Normal. OTHER FINDINGS: Satisfactory position of recently placed endotracheal tube. IMPRESSION: Satisfactory position of endotracheal tube 3 cm above the eder. Worsening pulmonary edema.
--- NOTE | 2018-09-07 12:48 | RAD ---
Date of service: 09/07/2018 HISTORY: intubated COMPARISON: September 06, 2018. FINDINGS: LUNGS: Improving pulmonary edema. PLEURA: No significant pleural effusion identified, no pneumothorax apparent. CARDIOVASCULAR: No atherosclerotic calcification present Normal size heart. OSSEOUS STRUCTURES: No significant abnormalities. VISUALIZED UPPER ABDOMEN: Normal. OTHER FINDINGS: Stable position of support apparatus including endotracheal tube and nasogastric tube. IMPRESSION: Improving pulmonary edema. Satisfactory position of support apparatus.
[2018-09-07] MEDS: Enoxaparin 80 mg Syringe SC SCH (13:31)
--- NOTE | 2018-09-07 15:27 | CP.PCM.CON ---
History of Present Illness - History of Present Illness History of Present Illness: renal consult note patient is intubated, hx is obtained from records 83 M with h/o chronic anemia, CKD stage 4, h/o gi bleeding, h/o severe aortic stenosis, DM, HTN, was admitted with CP, anemia hemoglobin of 6.6, worsening renal function, hyperkalemia,intubated in er for worsening sob. PMH as above PSH hernia related surg, inguinal and umbilical, bladder tumor resection, CEA Social form the record lives with family h/o smoking, no alcohol or illicit drugs Family history not contributory vitals reviewed intubated heent normal no kvd skin normal [id number] intubated vent dep abd soft no edema ao times 0 KENJI/CKD stage 4/anemia/hyperkalemia/htn/acute resp failure cr baseline around 3, urrently kenji unclear etiology echo pending hyperkalemia medical management, can start iv bicarb gtt for 1 liter anemia check iron profile, i have ordered it transfuse prn monitor UOP cards on board d/w icu team Past Patient History - Past Medical History & Family History Past Medical History?: Yes - Past Social History Smoking Status: Smoker Currrent Status Unknown - CARDIAC Hx Cardiac Disorders: Yes Hx Hypertension: Yes Other/Comment: severe aortic stenosis - PULMONARY Hx Respiratory Disorders: Yes Hx Chronic Obstructive Pulmonary Disease (COPD): Yes - NEUROLOGICAL Hx Neurological Disorder: Yes Other/Comment: sciatica - HEENT Hx HEENT Problems: Yes Hx Cataracts: Yes - RENAL Hx Chronic Kidney Disease: Yes Other/Comment: per son, patient has one kidney that is diseased - ENDOCRINE/METABOLIC Hx Endocrine Disorders: Yes Hx Diabetes Mellitus Type 2: Yes - HEMATOLOGICAL/ONCOLOGICAL Hx Blood Disorders: Yes Hx Anemia: Yes - INTEGUMENTARY Hx Dermatological Problems: No - MUSCULOSKELETAL/RHEUMATOLOGICAL Hx Musculoskeletal Disorders: Yes Hx Back Pain: Yes Hx Falls: No Hx Unsteady Gait: Yes Other/Comment: sciatica - GASTROINTESTINAL Hx Gastrointestinal Disorders: Yes Hx Gastritis: Yes Hx Pancreatitis: Yes - GENITOURINARY/GYNECOLOGICAL Hx Genitourinary Disorders: Yes Other/Comment: 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 Unable to get information from patient at this time - PSYCHIATRIC Hx Psychophysiologic Disorder: No Hx Emotional Abuse: No Hx Physical Abuse: No Hx Substance Use: No - SURGICAL HISTORY Hx Surgeries: Yes Hx Carotid Endarterectomy: Yes (right) Other/Comment: hernia repair in abdomen, per son - ANESTHESIA Hx Anesthesia: Yes (anton ding) Hx Anesthesia Reactions: No Hx Malignant Hyperthermia: No Meds Allergies/Adverse Reactions: Allergies Allergy/AdvReac Type Severity Reaction Status Date / Time No Known Allergies Allergy Verified 09/06/18 15:42 - Medications Medications: Current Medications Aspirin (Aspirin) 325 mg PO DAILY [facility] Last Admin: 09/07/18 09:11 Dose: 325 mg Enoxaparin Sodium (Lovenox) 70 mg SC DAILY [facility]; Protocol Last Admin: 09/07/18 13:31 Dose: 70 mg Furosemide (Lasix) 100 mg IV ONCE ONE Stop: 09/07/18 15:31 Nitroglycerin (Nitro-Bid 2% Oint) 1 ea TOP QID [facility] Last Admin: 09/07/18 13:33 Dose: 1 ea Pantoprazole Sodium (Protonix Inj) 40 mg IVP DAILY [facility] Last Admin: 09/07/18 09:12 Dose: 40 mg Results - Vital Signs Recent Vital Signs: Last Vital Signs Temp 98.7 F 09/07/18 14:39 Pulse 75 09/07/18 14:39 Resp 16 09/07/18 14:39 BP 119/58 L 09/07/18 14:39 Pulse Ox 100 09/07/18 13:00 - Labs Result Diagrams: 09/07/18 05:00 09/07/18 05:00 Labs: Laboratory Results - last 24 hr 09/06/18 09/06/18 09/06/18 10:00 15:59 16:23 WBC RBC Hgb Hct MCV MCH MCHC RDW Plt Count MPV Neut % (Auto) Lymph % (Auto) [place] % (Auto) Eos % (Auto) Baso % (Auto) Neut # (Auto) Lymph # (Auto) [place] # (Auto) Eos # (Auto) Baso # (Auto) Neutrophils % (Manual) Band Neutrophils % Lymphocytes % (Manual) Monocytes % (Manual) Eosinophils % (Manual) Platelet Estimate Polychromasia Hypochromasia (manual) Poikilocytosis (manual Anisocytosis (manual) Microcytosis (manual) Target Cells Tear Drop Cells Ovalocytes Acanthocytes (Spur) PT INR APTT pCO2 pO2 HCO3 ABG pH ABG Total CO2 ABG O2 Saturation ABG Base Excess Rashawn Test ABG Potassium A-a O2 Difference Glucose Lactate Vent Mode Mechanical Rate FiO2 Tidal Volume PEEP Sodium Potassium Chloride Carbon Dioxide Anion Gap BUN Creatinine Est GFR ( Amer) Est GFR (Non-Af Amer) POC Glucose (mg/dL) 97 Random Glucose Lactic Acid Calcium Phosphorus Magnesium Total Bilirubin AST ALT Alkaline Phosphatase Total Creatine Kinase 90 CK-MB (Mass) 3.54 H Troponin I 0.1720 H* NT-Pro-B Natriuret Pep Total Protein Albumin Globulin Albumin/Globulin Ratio Arterial Blood Potassium Urine Color Yellow Urine Clarity Cloudy Urine pH 5.0 Ur Specific [place] 1.016 Urine Protein 30 Urine Glucose (UA) Neg Urine Ketones Negative Urine Blood Moderate Urine Nitrate Negative Urine Bilirubin Negative Urine Urobilinogen 0.2-1.0 Ur Leukocyte Esterase Trace Urine RBC (Auto) 20 H Urine Microscopic WBC 9 H Ur Squamous Epith Cells 2 Amorphous Sediment Few H Urine Bacteria Few H Ur Yeast w Hyphae 1-2 Stool Occult Blood Blood Type Antibody Screen Crossmatch BBK History Checked 09/06/18 09/06/18 09/06/18 16:33 16:48 16:48 WBC 10.3 RBC 2.63 L Hgb 6.6 L Hct 21.4 L MCV 81.5 MCH 25.1 L MCHC 30.8 L RDW 16.8 H Plt Count 225 MPV 8.4 Neut % (Auto) 89.2 H Lymph % (Auto) 4.3 L [place] % (Auto) 5.7 Eos % (Auto) 0.7 Baso % (Auto) 0.1 Neut # (Auto) 9.2 H Lymph # (Auto) 0.4 L [place] # (Auto) 0.6 Eos # (Auto) 0.1 Baso # (Auto) 0.0 Neutrophils % (Manual) 86 H Band Neutrophils % 1 Lymphocytes % (Manual) 7 L Monocytes % (Manual) 5 Eosinophils % (Manual) 1 Platelet Estimate Normal Polychromasia Slight Hypochromasia (manual) Moderate Poikilocytosis (manual Moderate Anisocytosis (manual) Marked Microcytosis (manual) Moderate Target Cells Slight Tear Drop Cells Slight Ovalocytes Slight Acanthocytes (Spur) Slight PT INR APTT pCO2 pO2 HCO3 ABG pH ABG Total CO2 ABG O2 Saturation ABG Base Excess Rashawn Test ABG Potassium A-a O2 Difference Glucose Lactate Vent Mode Mechanical Rate FiO2 Tidal Volume PEEP Sodium 138 Potassium 6.6 H* D Chloride 111 H Carbon Dioxide 18 L Anion Gap 16 BUN 45 H Creatinine 3.9 H Est GFR ( Amer) 18 Est GFR (Non-Af Amer) 15 POC Glucose (mg/dL) Random Glucose 146 H Lactic Acid Calcium 9.4 Phosphorus Magnesium Total Bilirubin 0.3 AST 23 ALT 31 Alkaline Phosphatase 94 Total Creatine Kinase CK-MB (Mass) Troponin I 0.0690 NT-Pro-B Natriuret Pep 6840 H Total Protein 6.8 Albumin 3.9 Globulin 3.0 Albumin/Globulin Ratio 1.3 Arterial Blood Potassium Urine Color Urine Clarity Urine pH Ur Specific [place] Urine Protein Urine Glucose (UA) Urine Ketones Urine Blood Urine Nitrate Urine Bilirubin Urine Urobilinogen Ur Leukocyte Esterase Urine RBC (Auto) Urine Microscopic WBC Ur Squamous Epith Cells Amorphous Sediment Urine Bacteria Ur Yeast w Hyphae Stool Occult Blood Blood Type A POSITIVE Antibody Screen Negative Crossmatch See Detail BBK History Checked Patient has bt 09/06/18 09/06/18 09/06/18 16:48 17:49 17:49 WBC RBC Hgb Hct MCV MCH MCHC RDW Plt Count MPV Neut % (Auto) Lymph % (Auto) [place] % (Auto) Eos % (Auto) Baso % (Auto) Neut # (Auto) Lymph # (Auto) [place] # (Auto) Eos # (Auto) Baso # (Auto) Neutrophils % (Manual) Band Neutrophils % Lymphocytes % (Manual) Monocytes % (Manual) Eosinophils % (Manual) Platelet Estimate Polychromasia Hypochromasia (manual) Poikilocytosis (manual Anisocytosis (manual) Microcytosis (manual) Target Cells Tear Drop Cells Ovalocytes Acanthocytes (Spur) PT 12.2 INR 1.1 APTT 25.6 pCO2 pO2 HCO3 ABG pH ABG Total CO2 ABG O2 Saturation ABG Base Excess Rashawn Test ABG Potassium A-a O2 Difference Glucose Lactate Vent Mode Mechanical Rate FiO2 Tidal Volume PEEP Sodium Potassium 6.2 H* Chloride Carbon Dioxide Anion Gap BUN Creatinine Est GFR ( Amer) Est GFR (Non-Af Amer) POC Glucose (mg/dL) Random Glucose Lactic Acid Calcium Phosphorus Magnesium Total Bilirubin AST ALT Alkaline Phosphatase Total Creatine Kinase CK-MB (Mass) Troponin I NT-Pro-B Natriuret Pep Total Protein Albumin Globulin Albumin/Globulin Ratio Arterial Blood Potassium Urine Color Urine Clarity Urine pH Ur Specific [place] Urine Protein Urine Glucose (UA) Urine Ketones Urine Blood Urine Nitrate Urine Bilirubin Urine Urobilinogen Ur Leukocyte Esterase Urine RBC (Auto) Urine Microscopic WBC Ur Squamous Epith Cells Amorphous Sediment Urine Bacteria Ur Yeast w Hyphae Stool Occult Blood Negative Blood Type Antibody Screen Crossmatch BBK History Checked 09/06/18 09/06/18 09/06/18 18:12 21:37 22:15 WBC RBC Hgb Hct MCV MCH MCHC RDW Plt Count MPV Neut % (Auto) Lymph % (Auto) [place] % (Auto) Eos % (Auto) Baso % (Auto) Neut # (Auto) Lymph # (Auto) [place] # (Auto) Eos # (Auto) Baso # (Auto) Neutrophils % (Manual) Band Neutrophils % Lymphocytes % (Manual) Monocytes % (Manual) Eosinophils % (Manual) Platelet Estimate Polychromasia Hypochromasia (manual) Poikilocytosis (manual Anisocytosis (manual) Microcytosis (manual) Target Cells Tear Drop Cells Ovalocytes Acanthocytes (Spur) PT INR APTT pCO2 38 pO2 153 H HCO3 21.2 ABG pH 7.34 L ABG Total CO2 21.7 L ABG O2 Saturation 99.4 H ABG Base Excess -4.8 L Rashawn Test Yes ABG Potassium 5.5 H A-a O2 Difference 156.0 Glucose 90 Lactate 1.8 Vent Mode A/c Mechanical Rate 12 FiO2 50.0 Tidal Volume 500 PEEP 5 Sodium 136.0 Potassium Chloride 110.0 H Carbon Dioxide Anion Gap BUN Creatinine Est GFR ( Amer) Est GFR (Non-Af Amer) POC Glucose (mg/dL) 289 H 88 Random Glucose Lactic Acid Calcium Phosphorus Magnesium Total Bilirubin AST ALT Alkaline Phosphatase Total Creatine Kinase CK-MB (Mass) Troponin I NT-Pro-B Natriuret Pep Total Protein Albumin Globulin Albumin/Globulin Ratio Arterial Blood Potassium 5.5 H Urine Color Urine Clarity Urine pH Ur Specific [place] Urine Protein Urine Glucose (UA) Urine Ketones Urine Blood Urine Nitrate Urine Bilirubin Urine Urobilinogen Ur Leukocyte Esterase Urine RBC (Auto) Urine Microscopic WBC Ur Squamous Epith Cells Amorphous Sediment Urine Bacteria Ur Yeast w Hyphae Stool Occult Blood Blood Type Antibody Screen Crossmatch BBK History Checked 09/06/18 09/07/18 09/07/18 23:32 04:00 04:22 WBC RBC Hgb Hct MCV MCH MCHC RDW Plt Count MPV Neut % (Auto) Lymph % (Auto) [place] % (Auto) Eos % (Auto) Baso % (Auto) Neut # (Auto) Lymph # (Auto) [place] # (Auto) Eos # (Auto) Baso # (Auto) Neutrophils % (Manual) Band Neutrophils % Lymphocytes % (Manual) Monocytes % (Manual) Eosinophils % (Manual) Platelet Estimate Polychromasia Hypochromasia (manual) Poikilocytosis (manual Anisocytosis (manual) Microcytosis (manual) Target Cells Tear Drop Cells Ovalocytes Acanthocytes (Spur) PT INR APTT pCO2 34 L pO2 135 H HCO3 20.1 L ABG pH 7.35 ABG Total CO2 19.8 L ABG O2 Saturation 100.0 H ABG Base Excess -6.2 L Rashawn Test Yes ABG Potassium 5.9 H A-a O2 Difference 108.0 Glucose 147 H Lactate 0.9 Vent Mode A/c Mechanical Rate 14 FiO2 40.0 Tidal Volume 450 PEEP 5 Sodium 132.0 Potassium Chloride 107.0 Carbon Dioxide Anion Gap BUN Creatinine Est GFR ( Amer) Est GFR (Non-Af Amer) POC Glucose (mg/dL) 100 139 H Random Glucose Lactic Acid Calcium Phosphorus Magnesium Total Bilirubin AST ALT Alkaline Phosphatase Total Creatine Kinase CK-MB (Mass) Troponin I NT-Pro-B Natriuret Pep Total Protein Albumin Globulin Albumin/Globulin Ratio Arterial Blood Potassium 5.9 H Urine Color Urine Clarity Urine pH Ur Specific [place] Urine Protein Urine Glucose (UA) Urine Ketones Urine Blood Urine Nitrate Urine Bilirubin Urine Urobilinogen Ur Leukocyte Esterase Urine RBC (Auto) Urine Microscopic WBC Ur Squamous Epith Cells Amorphous Sediment Urine Bacteria Ur Yeast w Hyphae Stool Occult Blood Blood Type Antibody Screen Crossmatch BBK History Checked 09/07/18 09/07/18 09/07/18 05:00 05:00 08:52 WBC 16.7 H D RBC 3.24 L Hgb 8.5 L Hct 26.6 L MCV 82.0 MCH 26.1 L MCHC 31.8 L RDW 16.2 H Plt Count 204 MPV Neut % (Auto) Lymph % (Auto) [place] % (Auto) Eos % (Auto) Baso % (Auto) Neut # (Auto) Lymph # (Auto) [place] # (Auto) Eos # (Auto) Baso # (Auto) Neutrophils % (Manual) Band Neutrophils % Lymphocytes % (Manual) Monocytes % (Manual) Eosinophils % (Manual) Platelet Estimate Polychromasia Hypochromasia (manual) Poikilocytosis (manual Anisocytosis (manual) Microcytosis (manual) Target Cells Tear Drop Cells Ovalocytes Acanthocytes (Spur) PT INR APTT pCO2 pO2 HCO3 ABG pH ABG Total CO2 ABG O2 Saturation ABG Base Excess Rash[place] Test ABG Potassium A-a O2 Difference Glucose Lactate Vent Mode Mechanical Rate FiO2 Tidal Volume PEEP Sodium 137 Potassium 6.1 H Chloride 106 Carbon Dioxide 21 L Anion Gap 16 BUN 55 H Creatinine 4.5 H Est GFR ( Amer) 15 Est GFR (Non-Af Amer) 13 POC Glucose (mg/dL) 149 H Random Glucose 148 H Lactic Acid Calcium 8.9 Phosphorus 4.2 Magnesium 2.1 Total Bilirubin 1.8 H AST 34 ALT 36 Alkaline Phosphatase 96 Total Creatine Kinase CK-MB (Mass) Troponin I 1.3400 H* NT-Pro-B Natriuret Pep 8410 H Total Protein 6.8 Albumin 3.8 Globulin 3.0 Albumin/Globulin Ratio 1.3 Arterial Blood Potassium Urine Color Urine Clarity Urine pH Ur Specific [place] Urine Protein Urine Glucose (UA) Urine Ketones Urine Blood Urine Nitrate Urine Bilirubin Urine Urobilinogen Ur Leukocyte Esterase Urine RBC (Auto) Urine Microscopic WBC Ur Squamous Epith Cells Amorphous Sediment Urine Bacteria Ur Yeast w Hyphae Stool Occult Blood Blood Type Antibody Screen Crossmatch BBK History Checked 09/07/18 09/07/18 09:00 09:00 WBC RBC Hgb Hct MCV MCH MCHC RDW Plt Count MPV Neut % (Auto) Lymph % (Auto) [place] % (Auto) Eos % (Auto) Baso % (Auto) Neut # (Auto) Lymph # (Auto) [place] # (Auto) Eos # (Auto) Baso # (Auto) Neutrophils % (Manual) Band Neutrophils % Lymphocytes % (Manual) Monocytes % (Manual) Eosinophils % (Manual) Platelet Estimate Polychromasia Hypochromasia (manual) Poikilocytosis (manual Anisocytosis (manual) Microcytosis (manual) Target Cells Tear Drop Cells Ovalocytes Acanthocytes (Spur) PT INR APTT pCO2 pO2 HCO3 ABG pH ABG Total CO2 ABG O2 Saturation ABG Base Excess [place] Test ABG Potassium A-a O2 Difference Glucose Lactate Vent Mode Mechanical Rate FiO2 Tidal Volume PEEP Sodium Potassium Chloride Carbon Dioxide Anion Gap BUN Creatinine Est GFR ( Amer) Est GFR (Non-Af Amer) POC Glucose (mg/dL) Random Glucose Lactic Acid 1.2 Calcium Phosphorus Magnesium Total Bilirubin AST ALT Alkaline Phosphatase Total Creatine Kinase CK-MB (Mass) Troponin I 2.3000 H* NT-Pro-B Natriuret Pep Total Protein Albumin Globulin Albumin/Globulin Ratio Arterial Blood Potassium Urine Color Urine Clarity Urine pH Ur Specific [place] Urine Protein Urine Glucose (UA) Urine Ketones Urine Blood Urine Nitrate Urine Bilirubin Urine Urobilinogen Ur Leukocyte Esterase Urine RBC (Auto) Urine Microscopic WBC Ur Squamous Epith Cells Amorphous Sediment Urine Bacteria Ur Yeast w Hyphae Stool Occult Blood Blood Type Antibody Screen Crossmatch BBK History Checked
[2018-09-07 18:07] LABS: CALCIUM 8.5 mg/dL (8.4-10.2)
[2018-09-07 18:24] LABS: TROPONIN I 2.81 ng/mL (0.00-0.120)
[2018-09-07] MEDS ORDERED: Morphine 4 MG/ML VIAL IVP PRN (18:29)
[2018-09-07 19:10] LABS: IRON 299 ug/dL (49-181)
[2018-09-07 19:20] LABS: % IRON SATURATION 90 % (20-55); TOTAL IRON BINDING CAPACITY 333 ug/dL (250-450)
[2018-09-07] MEDS: Propofol 10 mg/ml 1,000 MG/100 ML VIAL IV SCH (19:30)
[2018-09-08] MEDS: Propofol 10 mg/ml 1,000 MG/100 ML VIAL IV SCH (01:40)
[2018-09-08 05:43] LABS: ABG ALLEN TEST YES; ARTERIAL BLOOD GAS HCO3 20.3 mmol/L (21-28); ARTERIAL BLOOD GAS O2 SAT 98.4 % (95-98); ARTERIAL BLOOD GAS PCO2 46 mm/Hg (35-45); ARTERIAL BLOOD GAS PH 7.27 (7.35-7.45); ARTERIAL BLOOD GAS PO2 102 mm/Hg (80-100); ARTERIAL BLOOD GAS TCO2 22.5 mmol/L (22-28)
[2018-09-08 06:21] LABS: HEMOGLOBIN 10.4 g/dL (12.0-18.0); MEAN CORPUSCULAR HEMOGLOBIN 27.6 pg (27.0-31.0); MEAN CORPUSCULAR HGB CONC 32.9 g/dL (33.0-37.0); RBC 3.77 Mil/uL (4.40-5.90); RED CELL DISTRIBUTION WIDTH 16.8 % (11.5-14.5); WHITE BLOOD COUNT 13.9 K/uL (4.8-10.8)
[2018-09-08 06:37] LABS: CALCIUM 8.3 mg/dL (8.4-10.2)
[2018-09-08 07:01] LABS: FERRITIN 48.8 ng/Ml (17.9-464)
--- NOTE | 2018-09-08 10:48 | CP.CCUPN ---
<Lolyd Ch - Last Filed: 09/08/18 10:45> CCU Subjective - Physician Review Subjective (Free Text): 09/08/18 09:45 83 y/o M was seen and examined by bedside. Pt is intubated, still sedated. Pt afebrile with NO acute events overnight. Hyperkalemia has resolved. Creatinine serum level increasing, Hgb is stable at 10.4. Good urinary output. CCU Objective - Vital Signs / Intake & Output Vital Signs (Last 4 hours): Vital Signs Temp Pulse Resp BP Pulse Ox 09/08/18 10:00 75 16 135/68 100 09/08/18 09:00 74 13 137/73 100 09/08/18 08:00 97.6 F 68 14 140/72 100 09/08/18 07:00 68 14 132/68 100 Intake and Output (Last 8hrs): Intake & Output 09/07/18 09/08/18 09/08/18 22:59 06:59 14:59 Intake Total 325 100 80 Output Total 1610 1720 Balance -1285 -1620 80 Weight 73.936 kg Intake: IV 100 30 Oral 50 Tube Feeding 0 Blood Product 325 Red Blood Cells Cpd As1 325 Lr Unit [id number] Output: Urine 1610 1720 Urethral (Garza) 1610 1720 - Physical Exam Head: Positive for: Atraumatic, Normocephalic Pupils: Positive for: PERRL Mouth: Positive for: Dry Respiratory/Chest: Positive for: Rales, Other (intubated). Negative for: Wheezes Cardiovascular: Positive for: Murmurs, Normal S1, S2 Abdomen: Positive for: Normal Bowel Sounds Upper Extremity: Positive for: Normal Inspection. Negative for: Cyanosis Lower Extremity: Positive for: Normal Inspection. Negative for: Edema Skin: Positive for: Warm, Dry - Medications Active Medications: Active Medications Generic Name Dose Route Start Last Admin Trade Name Freq PRN Reason Stop Dose Admin Aspirin 325 mg 09/07/18 09:00 09/07/18 09:11 Aspirin PO 325 mg DAILY ASHLEY Administration Enoxaparin Sodium 70 mg 09/07/18 09:00 09/07/18 13:31 Lovenox SC 70 mg DAILY ASHLEY Administration Protocol Propofol 1,000 mg in 100 mls @ 15.527 mls/hr 09/07/18 19:30 11/23/18 01:40 Diprivan IV 09/09/18 01:08 35 mcg/kg/min .Q6H27M ASHLEY 15.527 mls/hr Administration Protocol 35 MCG/KG/MIN Lorazepam 2 mg 09/07/18 18:29 09/07/18 18:46 Ativan IVP 2 mg Q6 PRN Administration Agitation Morphine Sulfate 4 mg 09/07/18 18:29 09/08/18 04:44 Morphine IVP 4 mg Q4 PRN Administration Agitation Nitroglycerin 1 ea 09/07/18 09:00 09/07/18 22:02 Nitro-Bid 2% Oint TOP 1 ea QID A[facility] Administration Pantoprazole Sodium 40 mg 09/07/18 09:00 09/07/18 09:12 Protonix Inj IVP 40 mg DAILY A[facility] Administration - Patient Studies Lab Studies: Microbiology Studies 09/06/18 16:48 Blood Culture - Preliminary Blood NO GROWTH AFTER 24 HOURS 09/06/18 16:33 Blood Culture - Preliminary Blood NO GROWTH AFTER 24 HOURS Lab Studies 09/08/18 09/08/18 09/08/18 Range/Units 05:38 04:53 04:20 WBC 13.9 H (4.8-10.8) K/uL RBC 3.77 L (4.40-5.90) Mil/uL Hgb 10.4 L (12.0-18.0) g/dL Hct 31.7 L (35.0-51.0) % MCV 84.0 D (80.0-94.0) fl MCH 27.6 (27.0-31.0) pg MCHC 32.9 L (33.0-37.0) g/dL RDW 16.8 H (11.5-14.5) % Plt Count 208 (130-400) K/uL pCO2 46 H (35-45) mm/Hg pO2 102 H (80-100) mm/Hg HCO3 20.3 L (21-28) mmol/L ABG pH 7.27 L (7.35-7.45) ABG Total CO2 22.5 (22-28) mmol/L ABG O2 Saturation 98.4 H (95-98) % ABG Base Excess -5.9 L (-2.0-3.0) mmol/L Rashawn Test Yes ABG Potassium 4.5 (3.6-5.2) mmol/L A-a O2 Difference 126.0 mm/Hg Glucose 113 H (75-110) mg/dL Lactate 1.2 (0.7-2.1) mmol/L Vent Mode A/c Mechanical Rate 14 FiO2 40.0 % Tidal Volume 450 PEEP 5 Sodium 133.0 (132-148) mmol/l Potassium (3.6-5.0) MMOL/L Chloride 105.0 (98-107) mmol/L Carbon Dioxide (22-30) mmol/L Anion Gap (10-20) BUN (9-20) mg/dl Creatinine (0.8-1.5) mg/dl Est GFR ( Amer) Est GFR (Non-Af Amer) POC Glucose (mg/dL) 98 (65-110) mg/dL Random Glucose (75-110) mg/dL Lactic Acid (0.7-2.1) MMOL/L Calcium (8.4-10.2) mg/dL Iron (49-181) ug/dL TIBC (250-450) ug/dL % Saturation (20-55) % Ferritin (17.9-464) ng/Ml Troponin I (0.00-0.120) ng/mL Arterial Blood Potassium 4.5 (3.6-5.2) mmol/L Blood Type Antibody Screen Crossmatch BBK History Checked 09/08/18 09/08/18 09/07/18 Range/Units 04:20 04:20 21:18 WBC (4.8-10.8) K/uL RBC (4.40-5.90) Mil/uL Hgb (12.0-18.0) g/dL Hct (35.0-51.0) % MCV (80.0-94.0) fl MCH (27.0-31.0) pg MCHC (33.0-37.0) g/dL RDW (11.5-14.5) % Plt Count (130-400) K/uL pCO2 (35-45) mm/Hg pO2 (80-100) mm/Hg HCO3 (21-28) mmol/L ABG pH (7.35-7.45) ABG Total CO2 (22-28) mmol/L ABG O2 Saturation (95-98) % ABG Base Excess (-2.0-3.0) mmol/L Rashawn Test ABG Potassium (3.6-5.2) mmol/L A-a O2 Difference mm/Hg Glucose (75-110) mg/dL Lactate (0.7-2.1) mmol/L Vent Mode Mechanical Rate FiO2 % Tidal Volume PEEP Sodium 139 (132-148) mmol/l Potassium 4.7 (3.6-5.0) MMOL/L Chloride 104 (98-107) mmol/L Carbon Dioxide 21 L (22-30) mmol/L Anion Gap 19 (10-20) BUN 77 H (9-20) mg/dl Creatinine 5.3 H (0.8-1.5) mg/dl Est GFR ( Amer) 13 Est GFR (Non-Af Amer) 10 POC Glucose (mg/dL) 115 H (65-110) mg/dL Random Glucose 116 H (75-110) mg/dL Lactic Acid 1.3 (0.7-2.1) MMOL/L Calcium 8.3 L (8.4-10.2) mg/dL Iron (49-181) ug/dL TIBC (250-450) ug/dL % Saturation (20-55) % Ferritin 48.8 (17.9-464) ng/Ml Troponin I (0.00-0.120) ng/mL Arterial Blood Potassium (3.6-5.2) mmol/L Blood Type Antibody Screen Crossmatch BBK History Checked 09/07/18 09/07/18 09/07/18 Range/Units 18:18 17:26 15:54 WBC (4.8-10.8) K/uL RBC (4.40-5.90) Mil/uL Hgb (12.0-18.0) g/dL Hct (35.0-51.0) % MCV (80.0-94.0) fl MCH (27.0-31.0) pg MCHC (33.0-37.0) g/dL RDW (11.5-14.5) % Plt Count (130-400) K/uL pCO2 (35-45) mm/Hg pO2 (80-100) mm/Hg HCO3 (21-28) mmol/L ABG pH (7.35-7.45) ABG Total CO2 (22-28) mmol/L ABG O2 Saturation (95-98) % ABG Base Excess (-2.0-3.0) mmol/L Rashawn Test ABG Potassium (3.6-5.2) mmol/L A-a O2 Difference mm/Hg Glucose (75-110) mg/dL Lactate (0.7-2.1) mmol/L Vent Mode Mechanical Rate FiO2 % Tidal Volume PEEP Sodium 137 (132-148) mmol/l Potassium 5.5 H (3.6-5.0) MMOL/L Chloride 105 (98-107) mmol/L Carbon Dioxide 19 L (22-30) mmol/L Anion Gap 19 (10-20) BUN 65 H (9-20) mg/dl Creatinine 4.8 H (0.8-1.5) mg/dl Est GFR ( Amer) 14 Est GFR (Non-Af Amer) 12 POC Glucose (mg/dL) 133 H (65-110) mg/dL Random Glucose 130 H (75-110) mg/dL Lactic Acid (0.7-2.1) MMOL/L Calcium 8.5 (8.4-10.2) mg/dL Iron 299 H (49-181) ug/dL TIBC 333 (250-450) ug/dL % Saturation 90 H (20-55) % Ferritin (17.9-464) ng/Ml Troponin I 2.8100 H* (0.00-0.120) ng/mL Arterial Blood Potassium (3.6-5.2) mmol/L Blood Type Antibody Screen Crossmatch BBK History Checked 09/07/18 09/06/18 Range/Units 12:48 16:33 WBC (4.8-10.8) K/uL RBC (4.40-5.90) Mil/uL Hgb (12.0-18.0) g/dL Hct (35.0-51.0) % MCV (80.0-94.0) fl MCH (27.0-31.0) pg MCHC (33.0-37.0) g/dL RDW (11.5-14.5) % Plt Count (130-400) K/uL pCO2 (35-45) mm/Hg pO2 (80-100) mm/Hg HCO3 (21-28) mmol/L ABG pH (7.35-7.45) ABG Total CO2 (22-28) mmol/L ABG O2 Saturation (95-98) % ABG Base Excess (-2.0-3.0) mmol/L Rashawn Test ABG Potassium (3.6-5.2) mmol/L A-a O2 Difference mm/Hg Glucose (75-110) mg/dL Lactate (0.7-2.1) mmol/L Vent Mode Mechanical Rate FiO2 % Tidal Volume PEEP Sodium (132-148) mmol/l Potassium (3.6-5.0) MMOL/L Chloride (98-107) mmol/L Carbon Dioxide (22-30) mmol/L Anion Gap (10-20) BUN (9-20) mg/dl Creatinine (0.8-1.5) mg/dl Est GFR ( Amer) Est GFR (Non-Af Amer) POC Glucose (mg/dL) 132 H (65-110) mg/dL Random Glucose (75-110) mg/dL Lactic Acid (0.7-2.1) MMOL/L Calcium (8.4-10.2) mg/dL Iron (49-181) ug/dL TIBC (250-450) ug/dL % Saturation (20-55) % Ferritin (17.9-464) ng/Ml Troponin I (0.00-0.120) ng/mL Arterial Blood Potassium (3.6-5.2) mmol/L Blood Type A POSITIVE Antibody Screen Negative Crossmatch See Detail BBK History Checked Patient has bt Laboratory Results - last 24 hr 09/06/18 09/07/18 09/07/18 16:33 12:48 15:54 WBC RBC Hgb Hct MCV MCH MCHC RDW Plt Count pCO2 pO2 HCO3 ABG pH ABG Total CO2 ABG O2 Saturation ABG Base Excess Rashawn Test ABG Potassium A-a O2 Difference Glucose Lactate Vent Mode Mechanical Rate FiO2 Tidal Volume PEEP Sodium Potassium Chloride Carbon Dioxide Anion Gap BUN Creatinine Est GFR ( Amer) Est GFR (Non-Af Amer) POC Glucose (mg/dL) 132 H 133 H Random Glucose Lactic Acid Calcium Iron TIBC % Saturation Ferritin Troponin I Arterial Blood Potassium Blood Type A POSITIVE Antibody Screen Negative Crossmatch See Detail BBK History Checked Patient has bt 09/07/18 09/07/18 09/07/18 17:26 18:18 21:18 WBC RBC Hgb Hct MCV MCH MCHC RDW Plt Count pCO2 pO2 HCO3 ABG pH ABG Total CO2 ABG O2 Saturation ABG Base Excess [place] Test ABG Potassium A-a O2 Difference Glucose Lactate Vent Mode Mechanical Rate FiO2 Tidal Volume PEEP Sodium 137 Potassium 5.5 H Chloride 105 Carbon Dioxide 19 L Anion Gap 19 BUN 65 H Creatinine 4.8 H Est GFR ( Amer) 14 Est GFR (Non-Af Amer) 12 POC Glucose (mg/dL) 115 H Random Glucose 130 H Lactic Acid Calcium 8.5 Iron 299 H TIBC 333 % Saturation 90 H Ferritin Troponin I 2.8100 H* Arterial Blood Potassium Blood Type Antibody Screen Crossmatch BBK History Checked 09/08/18 09/08/18 09/08/18 04:20 04:20 04:20 WBC 13.9 H RBC 3.77 L Hgb 10.4 L Hct 31.7 L MCV 84.0 D MCH 27.6 MCHC 32.9 L RDW 16.8 H Plt Count 208 pCO2 pO2 HCO3 ABG pH ABG Total CO2 ABG O2 Saturation ABG Base Excess Rashawn Test ABG Potassium A-a O2 Difference Glucose Lactate Vent Mode Mechanical Rate FiO2 Tidal Volume PEEP Sodium 139 Potassium 4.7 Chloride 104 Carbon Dioxide 21 L Anion Gap 19 BUN 77 H Creatinine 5.3 H Est GFR ( Amer) 13 Est GFR (Non-Af Amer) 10 POC Glucose (mg/dL) Random Glucose 116 H Lactic Acid 1.3 Calcium 8.3 L Iron TIBC % Saturation Ferritin 48.8 Troponin I Arterial Blood Potassium Blood Type Antibody Screen Crossmatch BBK History Checked 09/08/18 09/08/18 04:53 05:38 WBC RBC Hgb Hct MCV MCH MCHC RDW Plt Count pCO2 46 H pO2 102 H HCO3 20.3 L ABG pH 7.27 L ABG Total CO2 22.5 ABG O2 Saturation 98.4 H ABG Base Excess -5.9 L Rashawn Test Yes ABG Potassium 4.5 A-a O2 Difference 126.0 Glucose 113 H Lactate 1.2 Vent Mode A/c Mechanical Rate 14 FiO2 40.0 Tidal Volume 450 PEEP 5 Sodium 133.0 Potassium Chloride 105.0 Carbon Dioxide Anion Gap BUN Creatinine Est GFR ( Amer) Est GFR (Non-Af Amer) POC Glucose (mg/dL) 98 Random Glucose Lactic Acid Calcium Iron TIBC % Saturation Ferritin Troponin I Arterial Blood Potassium 4.5 Blood Type Antibody Screen Crossmatch BBK History Checked Fingerstick Blood Sugar Results: 115 Review of Systems - Review of Systems Systems not reviewed;Unavailable: Altered Mental Status Critical Care Progress Note - Nutrition Nutrition: Nutrition Category Date Time Status Liquid Diet [DIET] Diets 09/08/18 Lunch Active Assessment/Plan - Assessment and Plan (Free Text) Assessment: 83 y/o M with a PMHx of severe aortic stenosis, Chronic kidney disease stage 4, HTN and DM admitted to ED due to acute flash pulmonary edema, hyperkalemia, anemia and declining renal function. PLAN: 1. Acute respiratory failure --Possibly due to pulmonary edema, heart failure, NSTEMI, and/or pneumonia. --Will performed trial of extubation after stopping sedation. --F/U Echocardiogram final report. 2. Acute heart failure --Hemodynamically stable. Hx of severe aortic stenosis. --Elevated Troponin 2.81-yesterday. (caused by demand ischemia as per cardio) --Lovenox 70 mg daily. --Cardiology on board, Dr Pena, recommendations appreciated --F/U Echocardiogram final reports. 3. Acute kidney injury on chronic kidney disease --Creatinine increasing, 5.3-today. --Nephrology on board, Dr Nair, recommendations appreciated --F/U BMP 4. Hyperkalemia --Resolved. Serum K+ 4.7-wnl. Today --F/U BMP. 5. Acute normocytic anemia --Most probably due to CKD --S/P 4 PRBC's. Hgb 10.4 now 6. Prophylaxis --Pantoprazole --SCD's >>09/08/18 11:05 -Pt was extubated, and on oxygen mask at 15%, pt tolerated well procedure. Pt is awake and alert, saturating at 99%. Pt reports feeling OK, has asked for food. Will begin liquid diet. Case discussed with Dr Edmundo Laguna PGY-2. - Date & Time Date: 09/08/18 Time: 09:30 <Joselito Wyatt - Last Filed: 09/08/18 17:19> CCU Subjective - Physician Review Subjective (Free Text): Attestation: Patient seen and examined at the bedside with Resident Dr. Ivis Ch; and I agree with his outline of plans and management documented above and below, reflecting my review of all applicable clinical data, and participation in the care of the patient throughout the day in ICU; today, September 08, 2018.
--- NOTE | 2018-09-08 11:03 | RAD ---
Date of service: 09/08/2018 HISTORY: intubated COMPARISON: Portable chest 09/07/2018. FINDINGS: LUNGS: Endotracheal and nasogastric tubes do not appear simply changed in position. No definitive airspace disease appreciable at this time. PLEURA: No significant pleural effusion identified, no pneumothorax apparent. CARDIOVASCULAR: No aortic atherosclerotic calcification present. Normal cardiac size. Further reduction in pulmonary vascular congestion appreciated. OSSEOUS STRUCTURES: No significant abnormalities. VISUALIZED UPPER ABDOMEN: Normal. OTHER FINDINGS: None. IMPRESSION: Further reduction in pulmonary vascular congestion. No definitive airspace disease appreciated bilaterally.
[2018-09-08] MEDS: Nitroglycerin 2% Ointment Foilpak UD TOP SCH ×3 (11:45→21:23)
--- NOTE | 2018-09-08 12:00 | CP.PCM.PN ---
<Kevin Jaramillo - Last Filed: 09/08/18 14:52> Subjective - Date & Time of Evaluation Date of Evaluation: 09/08/18 Time of Evaluation: 11:58 - Subjective Subjective: Patient seen and examined at bedside in ICU, extubated, breathing comfortable in non breathing mask, reports feeling little better, mild sob but no CP. No acute events overnight. Afebrile. Objective - Vital Signs/Intake and Output Vital Signs (last 24 hours): Temp Pulse Resp BP Pulse Ox 97.6 F 70 14 148/71 100 09/08/18 08:00 09/08/18 11:00 09/08/18 11:00 09/08/18 11:45 09/08/18 11:00 Intake and Output: 09/08/18 09/08/18 06:59 18:59 Intake Total 100 80 Output Total 2580 Balance -2480 80 - Medications Medications: Current Medications Aspirin (Aspirin) 325 mg PO DAILY [facility] Last Admin: 09/08/18 11:45 Dose: 325 mg Enoxaparin Sodium (Lovenox) 70 mg SC DAILY [facility]; Protocol Last Admin: 09/07/18 13:31 Dose: 70 mg Lorazepam (Ativan) 2 mg IVP Q6 PRN PRN Reason: Agitation Last Admin: 09/07/18 18:46 Dose: 2 mg Morphine Sulfate (Morphine) 4 mg IVP Q4 PRN PRN Reason: Agitation Last Admin: 09/08/18 04:44 Dose: 4 mg Nitroglycerin (Nitro-Bid 2% Oint) 1 ea TOP QID [facility] Last Admin: 09/08/18 11:45 Dose: 1 ea Pantoprazole Sodium (Protonix Inj) 40 mg IVP DAILY [facility] Last Admin: 09/08/18 11:45 Dose: 40 mg - Labs Labs: 09/08/18 04:20 09/08/18 04:20 PT 12.2 Seconds (9.8-13.1) 09/06/18 16:48 INR 1.1 09/06/18 16:48 APTT 25.6 Seconds (25.6-37.1) 09/06/18 16:48 - Constitutional Appears: No Acute Distress - Eye Exam Eye Exam: EOMI - Respiratory Exam Respiratory Exam: Clear to Ausculation Bilateral, NORMAL BREATHING PATTERN - Cardiovascular Exam Cardiovascular Exam: REGULAR RHYTHM, +S1, +S2 - GI/Abdominal Exam GI & Abdominal Exam: Soft. absent: Distended, Tenderness - Extremities Exam Extremities Exam: absent: Pedal Edema - Neurological Exam Neurological Exam: Alert, Awake, Oriented x3 Assessment and Plan - Assessment and Plan (Free Text) Assessment: 83 y/o M with a PMHx of severe aortic stenosis, Chronic kidney disease stage 4, HTN and DM admitted due to acute flash pulmonary edema, hyperkalemia, anemia and declining renal function. Plan: - Acute respiratory failure likely 2/2 pulmonary edema, heart failure, NSTEMI, and/or pneumonia. - Elevated troponins - on Lovenox 70 mg daily. - Cardiology on board, Dr Pena, recommendations appreciated - f/u echo - Nephrology on board, Dr Nair, recommendations appreciated - worsening creatinine today - Hyperkalemia resolved, monitor - H/H stable s/p PRBC x4 units - rest of plan as ordered Case discussed with Dr Pena <Rashad Pena - Last Filed: 09/09/18 21:04> Objective - Vital Signs/Intake and Output Vital Signs (last 24 hours): Temp Pulse Resp BP Pulse Ox 97.1 F L 69 17 176/75 H 100 09/09/18 20:00 09/09/18 21:00 09/09/18 20:00 09/09/18 21:00 09/09/18 20:00 Intake and Output: 09/09/18 09/10/18 18:59 06:59 Intake Total 220 Output Total 1000 100 Balance -1000 120 - Medications Medications: Current Medications Aspirin (Aspirin) 325 mg PO DAILY [facility] Last Admin: 09/09/18 10:14 Dose: 325 mg Enoxaparin Sodium (Lovenox) 70 mg SC DAILY [facility]; Protocol Last Admin: 09/09/18 10:10 Dose: 70 mg Lorazepam (Ativan) 2 mg IVP Q6 PRN PRN Reason: Agitation Last Admin: 09/07/18 18:46 Dose: 2 mg Metoprolol Tartrate (Lopressor) 50 mg PO Q12 [facility] Morphine Sulfate (Morphine) 4 mg IVP Q4 PRN PRN Reason: Agitation Last Admin: 09/08/18 04:44 Dose: 4 mg Nitroglycerin (Nitro-Bid 2% Oint) 1 ea TOP QID [facility] Last Admin: 09/09/18 21:00 Dose: 1 ea Pantoprazole Sodium (Protonix Inj) 40 mg IVP DAILY [facility] Last Admin: 09/09/18 10:09 Dose: 40 mg - Labs Labs: 09/09/18 16:20 09/09/18 04:35 PT 12.2 Seconds (9.8-13.1) 09/06/18 16:48 INR 1.1 09/06/18 16:48 APTT 25.6 Seconds (25.6-37.1) 09/06/18 16:48 Assessment and Plan (1) Congestive heart failure (CHF) Status: Acute (2) Acute renal failure (ARF) Status: Acute (3) DMII (diabetes mellitus, type 2) Status: Chronic (4) HTN (hypertension) Status: Chronic (5) Hyperkalemia Status: Acute (6) Leukocytosis Status: Acute (7) Anemia Status: Acute (8) Aortic regurgitation Status: Acute (9) Aortic stenosis Status: Acute - Assessment and Plan (Free Text) Plan: I was present during evaluation and discussed with Dr Clint kim plans of care and mgt. Rashad Pena M.D.
[2018-09-08] MEDS: Enoxaparin 80 mg Syringe SC SCH (16:57)
--- NOTE | 2018-09-08 19:00 | CARD ---
APPROVED REPORT Date of service: 09/08/2018 EXAM: Two-dimensional and M-mode echocardiogram with Doppler and color Doppler. Other Information Quality : AverageRhythm : NSR Technically limited study due to No Modes INDICATION Aortic Valve Disease Congestive Heart Failure 2D DIMENSIONS IVSd0.94 (0.7-1.1cm)LVDd4.40 (3.9-5.9cm) LVOT Diameter2.04 (1.8-2.4cm)PWd1.14 (0.7-1.1cm) IVSs1.10 (0.8-1.2cm)LVDs3.62 (2.5-4.0cm) FS (%) 17.9 %PWs1.25 (0.8-1.2cm) Aortic Valve AoV Peak Pelbwgsy629.3cm/sAoV VTI43.7cmAO Peak GR.23mmHg LVOT Peak Saefanvx15.5cm/sLVOT VTI17.11cmAO Mean GR.13mmHg PAMELA (VMAX)0.95uo1HKV (VTI)0.54ch4DW P 1/2 Bfes014ek Mitral Valve MV E Iievfbmj72.3cm/sMV DECEL AXGS280gvAV A Fuamfrdk158.1cm/s MV KYN81zxN/A ratio1.0MVA (PHT)4.58cm2 TDI Lateral E' Peak V7.25cm/sMedial E' Peak V7.01cm/sE/Lateral E'13.3 E/Medial E'13.7 LEFT VENTRICLE The left ventricle is normal size. There is normal left ventricular wall thickness. The left ventricular ejection fraction is within the normal range. The estimated ejection fraction is 50-55% There is normal LV segmental wall motion. Transmitral Doppler flow pattern is Grade I-abnormal relaxation pattern. No left ventricle thrombus noted on this study. There is no ventricular septal defect visualized. There is no left ventricular aneurysm. There is no mass noted in the left ventricle. RIGHT VENTRICLE The right ventricle is normal size. There is normal right ventricular wall thickness. The right ventricular systolic function is normal. ATRIA The left atrium size is normal. The right atrium size is normal. The interatrial septum is intact with no evidence for an atrial septal defect. AORTIC VALVE Moderate aortic valve calcification. Moderate aortic regurgitation is present. There is moderate valvular aortic stenosis. Peak aortic valve velocity is 2.5 m/sec, peak gradient of 24 mm Hg and calculated AV area of 1.1 cm2. Correlate clinically. There is no aortic valvular vegetation. MITRAL VALVE The mitral valve is normal in structure. There is no evidence of mitral valve prolapse. There is no mitral valve stenosis. There is mild mitral valve regurgitation noted. TRICUSPID VALVE The tricuspid valve is normal in structure. There is trivial tricuspid valve regurgitation noted. There is no tricuspid valve prolapse or vegetation. There is no tricuspid valve stenosis. PULMONIC VALVE The pulmonary valve is normal in structure. There is no pulmonic valvular regurgitation. There is no pulmonic valvular stenosis. GREAT VESSELS The aortic root is normal in size. The ascending aorta is normal in size. The pulmonary artery is normal. The IVC is normal in size and collapses >50% with inspiration. PERICARDIAL EFFUSION There is no pericardial effusion. There is no pleural effusion. <Conclusion> The estimated ejection fraction is 50-55% Transmitral Doppler flow pattern is Grade I-abnormal relaxation pattern. The left atrium size is normal. Moderate aortic regurgitation is present. There is moderate valvular aortic stenosis. Peak aortic valve velocity is 2.5 m/sec, peak gradient of 24 mm Hg and calculated AV area of 1.1 cm2. Correlate clinically. There is mild mitral valve regurgitation noted.
[2018-09-09 05:31] LABS: HEMOGLOBIN 10.6 g/dL (12.0-18.0); MEAN CELL VOLUME 83.9 fl (80.0-94.0); MEAN CORPUSCULAR HEMOGLOBIN 26.9 pg (27.0-31.0); MEAN CORPUSCULAR HGB CONC 32.1 g/dL (33.0-37.0); RBC 3.96 Mil/uL (4.40-5.90); RED CELL DISTRIBUTION WIDTH 17.4 % (11.5-14.5); WHITE BLOOD COUNT 12.1 K/uL (4.8-10.8)
[2018-09-09 05:46] LABS: CALCIUM 8.1 mg/dL (8.4-10.2)
--- NOTE | 2018-09-09 07:21 | CP.CCUPN ---
CCU Subjective - Physician Review Events Since Last Encounter (Free Text): Patient awake, no distress, on O2 supplement by nasal canula, no chest pain, no fever, events reviewed CCU Objective - Vital Signs / Intake & Output Vital Signs (Last 4 hours): Vital Signs Temp Pulse Resp BP Pulse Ox 09/09/18 06:00 80 20 182/85 H 100 09/09/18 04:00 98.6 F 75 18 166/79 H 100 Intake and Output (Last 8hrs): Intake & Output 09/08/18 09/09/18 09/09/18 22:59 06:59 14:59 Intake Total 520 100 Output Total 2100 400 Balance -1580 -300 Weight 154 lb Intake: IV 10 Oral 510 100 Output: Urine 2100 400 Urethral (Garza) 2100 400 - Physical Exam Head: Positive for: Atraumatic, Normocephalic Pupils: Positive for: PERRL Extroacular Muscles: Positive for: EOMI Ears: Positive for: Normal Mouth: Positive for: Dry Respiratory/Chest: Positive for: Rales. Negative for: Wheezes Cardiovascular: Positive for: Murmurs, Normal S1, S2 Abdomen: Positive for: Normal Bowel Sounds Upper Extremity: Positive for: Normal Inspection. Negative for: Cyanosis Lower Extremity: Positive for: Normal Inspection. Negative for: Edema Neurological: Positive for: Speech Normal Skin: Positive for: Warm, Dry Psychiatric: Positive for: Alert - Medications Active Medications: Active Medications Generic Name Dose Route Start Last Admin Trade Name Freq PRN Reason Stop Dose Admin Aspirin 325 mg 09/07/18 09:00 09/08/18 11:45 Aspirin PO 325 mg DAILY ASHLEY Administration Enoxaparin Sodium 70 mg 09/07/18 09:00 09/08/18 16:57 Lovenox SC 70 mg DAILY ASHLEY Administration Protocol Lorazepam 2 mg 09/07/18 18:29 09/07/18 18:46 Ativan IVP 2 mg Q6 PRN Administration Agitation Morphine Sulfate 4 mg 09/07/18 18:29 09/08/18 04:44 Morphine IVP 4 mg Q4 PRN Administration Agitation Nitroglycerin 1 ea 09/07/18 09:00 09/08/18 21:23 Nitro-Bid 2% Oint TOP 1 ea QID ASHLEY Administration Pantoprazole Sodium 40 mg 09/07/18 09:00 09/08/18 11:45 Protonix Inj IVP 40 mg DAILY ASHLEY Administration - Patient Studies Lab Studies: Microbiology Studies 09/06/18 16:48 Blood Culture - Preliminary Blood NO GROWTH AFTER 48 HOURS 09/06/18 16:33 Blood Culture - Preliminary Blood NO GROWTH AFTER 48 HOURS Lab Studies 09/09/18 09/09/18 09/09/18 Range/Units 04:49 04:35 04:35 WBC 12.1 H (4.8-10.8) K/uL RBC 3.96 L (4.40-5.90) Mil/uL Hgb 10.6 L (12.0-18.0) g/dL Hct 33.2 L (35.0-51.0) % MCV 83.9 (80.0-94.0) fl MCH 26.9 L (27.0-31.0) pg MCHC 32.1 L (33.0-37.0) g/dL RDW 17.4 H (11.5-14.5) % Plt Count 218 (130-400) K/uL Sodium 140 (132-148) mmol/l Potassium 4.1 (3.6-5.0) MMOL/L Chloride 104 (98-107) mmol/L Carbon Dioxide 25 (22-30) mmol/L Anion Gap 15 (10-20) BUN 76 H (9-20) mg/dl Creatinine 4.2 H (0.8-1.5) mg/dl Est GFR ( Amer) 17 Est GFR (Non-Af Amer) 14 POC Glucose (mg/dL) 133 H (65-110) mg/dL Random Glucose 126 H (75-110) mg/dL Calcium 8.1 L (8.4-10.2) mg/dL 09/08/18 09/08/18 Range/Units 21:38 11:30 WBC (4.8-10.8) K/uL RBC (4.40-5.90) Mil/uL Hgb (12.0-18.0) g/dL Hct (35.0-51.0) % MCV (80.0-94.0) fl MCH (27.0-31.0) pg MCHC (33.0-37.0) g/dL RDW (11.5-14.5) % Plt Count (130-400) K/uL Sodium (132-148) mmol/l Potassium (3.6-5.0) MMOL/L Chloride (98-107) mmol/L Carbon Dioxide (22-30) mmol/L Anion Gap (10-20) BUN (9-20) mg/dl Creatinine (0.8-1.5) mg/dl Est GFR ( Amer) Est GFR (Non-Af Amer) POC Glucose (mg/dL) 85 122 H (65-110) mg/dL Random Glucose (75-110) mg/dL Calcium (8.4-10.2) mg/dL Laboratory Results - last 24 hr 09/08/18 09/08/18 09/09/18 11:30 21:38 04:35 WBC 12.1 H RBC 3.96 L Hgb 10.6 L Hct 33.2 L MCV 83.9 MCH 26.9 L MCHC 32.1 L RDW 17.4 H Plt Count 218 Sodium Potassium Chloride Carbon Dioxide Anion Gap BUN Creatinine Est GFR ( Amer) Est GFR (Non-Af Amer) POC Glucose (mg/dL) 122 H 85 Random Glucose Calcium 09/09/18 09/09/18 04:35 04:49 WBC RBC Hgb Hct MCV MCH MCHC RDW Plt Count Sodium 140 Potassium 4.1 Chloride 104 Carbon Dioxide 25 Anion Gap 15 BUN 76 H Creatinine 4.2 H Est GFR ( Amer) 17 Est GFR (Non-Af Amer) 14 POC Glucose (mg/dL) 133 H Random Glucose 126 H Calcium 8.1 L Fingerstick Blood Sugar Results: 133 Critical Care Progress Note - Nutrition Nutrition: Nutrition Category Date Time Status Consistent Carbohydrate [DIET] Diets 09/08/18 Lunch Active Assessment/Plan - Assessment and Plan (Free Text) Assessment: A/P Acute respiratory failure improved, CHF, KENJI, anemia, hyperkalemia, HTN - Continue meds - O2 supplement - Pulmonary toilets - Cardiology follow up
[2018-09-09] MEDS: Enoxaparin 80 mg Syringe SC SCH (10:10)
[2018-09-09] MEDS: Nitroglycerin 2% Ointment Foilpak UD TOP SCH ×4 (10:10→21:00)
--- NOTE | 2018-09-09 15:56 | CP.PCM.PN ---
Subjective - Date & Time of Evaluation Date of Evaluation: 09/09/18 Time of Evaluation: 15:55 - Subjective Subjective: renal follow up note extubated today vitals reviewed sitting in bed NAD heent normal no jvd skin normal [id number] no resp distress abd soft no edema ao times 2 KENJI/CKD stage 4/anemia/hyperkalemia/htn/acute resp failure cr baseline around 3, is slowly improving, UOP has improved monitor I&Os closely bun high encourage po intake hyperkalemia resolved anemia improved, [employer] ok. transfuse as neede Objective - Vital Signs/Intake and Output Vital Signs (last 24 hours): Temp Pulse Resp BP Pulse Ox 97.6 F 78 13 172/74 H 100 09/09/18 12:00 09/09/18 14:00 09/09/18 14:00 09/09/18 14:00 09/09/18 14:00 Intake and Output: 09/09/18 09/09/18 06:59 18:59 Intake Total 380 Output Total 800 Balance -420 - Medications Medications: Current Medications Aspirin (Aspirin) 325 mg PO DAILY [facility] Last Admin: 09/09/18 10:14 Dose: 325 mg Enoxaparin Sodium (Lovenox) 70 mg SC DAILY [facility]; Protocol Last Admin: 09/09/18 10:10 Dose: 70 mg Lorazepam (Ativan) 2 mg IVP Q6 PRN PRN Reason: Agitation Last Admin: 09/07/18 18:46 Dose: 2 mg Morphine Sulfate (Morphine) 4 mg IVP Q4 PRN PRN Reason: Agitation Last Admin: 09/08/18 04:44 Dose: 4 mg Nitroglycerin (Nitro-Bid 2% Oint) 1 ea TOP QID [facility] Last Admin: 09/09/18 13:27 Dose: 1 ea Pantoprazole Sodium (Protonix Inj) 40 mg IVP DAILY [facility] Last Admin: 09/09/18 10:09 Dose: 40 mg - Labs Labs: 09/09/18 04:35 09/09/18 04:35 PT 12.2 Seconds (9.8-13.1) 09/06/18 16:48 INR 1.1 09/06/18 16:48 APTT 25.6 Seconds (25.6-37.1) 09/06/18 16:48
[2018-09-09 16:52] LABS: HEMOGLOBIN 10.9 g/dL (12.0-18.0); MEAN CELL VOLUME 83.6 fl (80.0-94.0); MEAN CORPUSCULAR HGB CONC 32.2 g/dL (33.0-37.0); RBC 4.03 Mil/uL (4.40-5.90); RED CELL DISTRIBUTION WIDTH 17.9 % (11.5-14.5); WHITE BLOOD COUNT 9.6 K/uL (4.8-10.8)
--- NOTE | 2018-09-09 20:32 | CP.PCM.HP ---
History of Present Illness - History of Present Illness History of Present Illness: This is an 83 y/o makle with hx of HTN and DM 2 who presented to ER with recurrent chest pain for the past week . He was noted to have LVH on EKG and elevated initial troponin . While being evaluated at the ER, he developed sudden dyspnea and wheezing hence a code was called. CXR showed pulmonary edema .Aicha echeverria was also noted to have hyperkalemia and elevated proBNP. Cardiology and renal consults were called. Medical Hx HTN, DM 2 Present on Admission - Present on Admission Any Indicators Present on Admission: No History of DVT/PE: No History of Uncontrolled Diabetes: Yes Urinary Catheter: No Decubitus Ulcer Present: No Review of Systems - Cardiovascular Cardiovascular: Chest Pain - Respiratory Respiratory: Cough Past Patient History - Past Medical History & Family History Past Medical History?: Yes - Past Social History Alcohol: None Drugs: Denies - CARDIAC Hx Hypertension: Yes - PULMONARY Hx Respiratory Disorders: Yes Hx Chronic Obstructive Pulmonary Disease (COPD): Yes - NEUROLOGICAL Hx Neurological Disorder: Yes Other/Comment: sciatica - HEENT Hx HEENT Problems: Yes Hx Cataracts: Yes - RENAL Hx Chronic Kidney Disease: Yes - ENDOCRINE/METABOLIC Hx Endocrine Disorders: Yes Hx Diabetes Mellitus Type 2: Yes - HEMATOLOGICAL/ONCOLOGICAL Hx Anemia: Yes - INTEGUMENTARY Hx Dermatological Problems: No - MUSCULOSKELETAL/RHEUMATOLOGICAL Hx Musculoskeletal Disorders: Yes Hx Back Pain: Yes Hx Falls: No Hx Unsteady Gait: Yes Other/Comment: sciatica - GASTROINTESTINAL Hx Gastritis: Yes Hx Pancreatitis: Yes - GENITOURINARY/GYNECOLOGICAL Hx Genitourinary Disorders: Yes Other/Comment: 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 Unable to get information from patient at this time - PSYCHIATRIC Hx Psychophysiologic Disorder: No Hx Emotional Abuse: No Hx Physical Abuse: No Hx Substance Use: No - SURGICAL HISTORY Hx Carotid Endarterectomy: Yes - ANESTHESIA Hx Anesthesia: Yes (anton ding) Hx Anesthesia Reactions: No Hx Malignant Hyperthermia: No Meds Allergies/Adverse Reactions: Allergies Allergy/AdvReac Type Severity Reaction Status Date / Time No Known Allergies Allergy Verified 09/06/18 15:42 Physical Exam - Head Exam Head Exam: NORMAL INSPECTION - Eye Exam Eye Exam: Normal appearance - ENT Exam ENT Exam: Mucous Membranes Dry - Respiratory Exam Respiratory Exam: Decreased Breath Sounds - Cardiovascular Exam Cardiovascular Exam: REGULAR RHYTHM - GI/Abdominal Exam GI & Abdominal Exam: Normal Bowel Sounds - Neurological Exam Neurological exam: CN II-XII Intact Results - Vital Signs Recent Vital Signs: Last Vital Signs Temp 97.1 F L 09/09/18 20:00 Pulse 76 09/09/18 20:00 Resp 17 09/09/18 20:00 BP 186/80 H 09/09/18 20:00 Pulse Ox 100 09/09/18 20:00 - Labs Result Diagrams: 09/09/18 16:20 09/09/18 04:35 Labs: Laboratory Results - last 24 hr 09/08/18 09/09/18 09/09/18 21:38 04:35 04:35 WBC 12.1 H RBC 3.96 L Hgb 10.6 L Hct 33.2 L MCV 83.9 MCH 26.9 L MCHC 32.1 L RDW 17.4 H Plt Count 218 Sodium 140 Potassium 4.1 Chloride 104 Carbon Dioxide 25 Anion Gap 15 BUN 76 H Creatinine 4.2 H Est GFR ( Amer) 17 Est GFR (Non-Af Amer) 14 POC Glucose (mg/dL) 85 Random Glucose 126 H Calcium 8.1 L Stool Occult Blood Blood Type Antibody Screen Crossmatch BBK History Checked 09/09/18 09/09/18 09/09/18 04:49 12:13 16:20 WBC RBC Hgb Hct MCV MCH MCHC RDW Plt Count Sodium Potassium Chloride Carbon Dioxide Anion Gap BUN Creatinine Est GFR ( Amer) Est GFR (Non-Af Amer) POC Glucose (mg/dL) 133 H 176 H Random Glucose Calcium Stool Occult Blood Blood Type A POSITIVE Antibody Screen Negative Crossmatch See Detail BBK History Checked Patient has bt 09/09/18 09/09/18 09/09/18 16:20 16:45 16:50 WBC 9.6 RBC 4.03 L Hgb 10.9 L Hct 33.7 L MCV 83.6 MCH 27.0 MCHC 32.2 L RDW 17.9 H Plt Count 233 Sodium Potassium Chloride Carbon Dioxide Anion Gap BUN Creatinine Est GFR ( Amer) Est GFR (Non-Af Amer) POC Glucose (mg/dL) 114 H Random Glucose Calcium Stool Occult Blood Positive H Blood Type Antibody Screen Crossmatch BBK History Checked Assessment & Plan (1) Congestive heart failure (CHF) Status: Acute (2) Acute renal failure (ARF) Status: Acute (3) DMII (diabetes mellitus, type 2) Status: Chronic Priority: High (4) HTN (hypertension) Status: Chronic Priority: High (5) Hyperkalemia Status: Acute - Assessment and Plan (Free Text) Plan: ICU admission Cardiology renal consult check potassium levels diuretics follow up ECHO cont troponin check BP control Accucheck with coverage
--- NOTE | 2018-09-09 20:51 | CP.PCM.PN ---
Subjective - Date & Time of Evaluation Date of Evaluation: 09/08/18 Time of Evaluation: 15:00 - Subjective Subjective: Noted elevated WBC Has no fever still with elevated BP Has no chest pain SOB is less. BP better after transfusion. Objective - Vital Signs/Intake and Output Vital Signs (last 24 hours): Temp Pulse Resp BP Pulse Ox 97.1 F L 76 17 186/80 H 100 09/09/18 20:00 09/09/18 20:00 09/09/18 20:00 09/09/18 20:00 09/09/18 20:00 Intake and Output: 09/09/18 09/10/18 18:59 06:59 Intake Total 220 Output Total 1000 100 Balance -1000 120 - Medications Medications: Current Medications Aspirin (Aspirin) 325 mg PO DAILY [facility] Last Admin: 09/09/18 10:14 Dose: 325 mg Enoxaparin Sodium (Lovenox) 70 mg SC DAILY [facility]; Protocol Last Admin: 09/09/18 10:10 Dose: 70 mg Lorazepam (Ativan) 2 mg IVP Q6 PRN PRN Reason: Agitation Last Admin: 09/07/18 18:46 Dose: 2 mg Metoprolol Tartrate (Lopressor) 50 mg PO Q12 [facility] Morphine Sulfate (Morphine) 4 mg IVP Q4 PRN PRN Reason: Agitation Last Admin: 09/08/18 04:44 Dose: 4 mg Nitroglycerin (Nitro-Bid 2% Oint) 1 ea TOP QID [facility] Last Admin: 09/09/18 16:28 Dose: 1 ea Pantoprazole Sodium (Protonix Inj) 40 mg IVP DAILY [facility] Last Admin: 09/09/18 10:09 Dose: 40 mg - Labs Labs: 09/09/18 16:20 09/09/18 04:35 PT 12.2 Seconds (9.8-13.1) 09/06/18 16:48 INR 1.1 09/06/18 16:48 APTT 25.6 Seconds (25.6-37.1) 09/06/18 16:48 - Head Exam Head Exam: NORMAL INSPECTION - Eye Exam Eye Exam: Normal appearance - ENT Exam ENT Exam: Mucous Membranes Moist - Respiratory Exam Respiratory Exam: Decreased Breath Sounds - Cardiovascular Exam Cardiovascular Exam: REGULAR RHYTHM - GI/Abdominal Exam GI & Abdominal Exam: Normal Bowel Sounds - Neurological Exam Neurological Exam: Awake Assessment and Plan (1) Congestive heart failure (CHF) Status: Acute (2) Acute renal failure (ARF) Status: Acute (3) DMII (diabetes mellitus, type 2) Status: Chronic (4) HTN (hypertension) Status: Chronic (5) Hyperkalemia Status: Acute (6) Leukocytosis Status: Acute (7) Anemia Status: Acute - Assessment and Plan (Free Text) Plan: Check blood test urine blood C and S recheck cbc in am cont tx diuretics anti HTN stool for occult blood check CEA
--- NOTE | 2018-09-09 21:01 | CP.PCM.PN ---
Subjective - Date & Time of Evaluation Date of Evaluation: 09/09/18 Time of Evaluation: 16:00 - Subjective Subjective: Patient is less distressed. Has no chest pain Worried about stool testing HGb is 10.9 creatinine 4.2 GFR 14 potassium 4.1 Objective - Vital Signs/Intake and Output Vital Signs (last 24 hours): Temp Pulse Resp BP Pulse Ox 97.1 F L 76 17 186/80 H 100 09/09/18 20:00 09/09/18 20:00 09/09/18 20:00 09/09/18 20:00 09/09/18 20:00 Intake and Output: 09/09/18 09/10/18 18:59 06:59 Intake Total 220 Output Total 1000 100 Balance -1000 120 - Medications Medications: Current Medications Aspirin (Aspirin) 325 mg PO DAILY [facility] Last Admin: 09/09/18 10:14 Dose: 325 mg Enoxaparin Sodium (Lovenox) 70 mg SC DAILY [facility]; Protocol Last Admin: 09/09/18 10:10 Dose: 70 mg Lorazepam (Ativan) 2 mg IVP Q6 PRN PRN Reason: Agitation Last Admin: 09/07/18 18:46 Dose: 2 mg Metoprolol Tartrate (Lopressor) 50 mg PO Q12 [facility] Morphine Sulfate (Morphine) 4 mg IVP Q4 PRN PRN Reason: Agitation Last Admin: 09/08/18 04:44 Dose: 4 mg Nitroglycerin (Nitro-Bid 2% Oint) 1 ea TOP QID [facility] Last Admin: 09/09/18 16:28 Dose: 1 ea Pantoprazole Sodium (Protonix Inj) 40 mg IVP DAILY [facility] Last Admin: 09/09/18 10:09 Dose: 40 mg - Labs Labs: 09/09/18 16:20 09/09/18 04:35 PT 12.2 Seconds (9.8-13.1) 09/06/18 16:48 INR 1.1 09/06/18 16:48 APTT 25.6 Seconds (25.6-37.1) 09/06/18 16:48 - Head Exam Head Exam: NORMAL INSPECTION - Eye Exam Eye Exam: Normal appearance - ENT Exam ENT Exam: Mucous Membranes Moist - Respiratory Exam Respiratory Exam: Decreased Breath Sounds - Cardiovascular Exam Cardiovascular Exam: REGULAR RHYTHM - GI/Abdominal Exam GI & Abdominal Exam: Normal Bowel Sounds Assessment and Plan (1) Congestive heart failure (CHF) Status: Acute (2) Acute renal failure (ARF) Status: Acute (3) DMII (diabetes mellitus, type 2) Status: Chronic (4) HTN (hypertension) Status: Chronic (5) Hyperkalemia Status: Acute (6) Leukocytosis Status: Acute (7) Anemia Status: Acute (8) Aortic regurgitation Status: Acute (9) Aortic stenosis Status: Acute - Assessment and Plan (Free Text) Plan: Con tmeds cont check labs metoprolol 50 bid recheck BP in am may need to add amlodipine telemetry once Bp is stable.
[2018-09-10 05:12] LABS: HEMOGLOBIN 9.9 g/dL (12.0-18.0); MEAN CELL VOLUME 84.4 fl (80.0-94.0); MEAN CORPUSCULAR HEMOGLOBIN 27.3 pg (27.0-31.0); MEAN CORPUSCULAR HGB CONC 32.3 g/dL (33.0-37.0); RBC 3.62 Mil/uL (4.40-5.90); RED CELL DISTRIBUTION WIDTH 17.3 % (11.5-14.5); WHITE BLOOD COUNT 8.8 K/uL (4.8-10.8)
[2018-09-10 05:34] LABS: INR 1.1; PROTHROMBIN TIME 12.2 Seconds (9.8-13.1)
[2018-09-10 05:37] LABS: PARTIAL THROMBOPLASTIN TIME 30.2 Seconds (25.6-37.1)
[2018-09-10 05:51] LABS: CALCIUM 8.5 mg/dL (8.4-10.2)
--- NOTE | 2018-09-10 07:15 | CP.CCUPN ---
CCU Subjective - Physician Review Events Since Last Encounter (Free Text): Patient awake, no distress, on O2 supplement by nasal canula, no chest pain, no fever, events reviewed CCU Objective - Vital Signs / Intake & Output Vital Signs (Last 4 hours): Vital Signs Temp Pulse Resp BP Pulse Ox 09/10/18 06:00 71 12 161/77 H 18 L 09/10/18 04:00 98.8 F 69 12 152/70 H 100 Intake and Output (Last 8hrs): Intake & Output 09/09/18 09/10/18 09/10/18 22:59 06:59 14:59 Intake Total 340 190 Output Total 1300 1000 Balance -960 -810 Weight 158 lb Intake: IV 20 Oral 340 170 Output: Urine 1300 1000 Urethral (Garza) 1300 1000 Other: # Bowel Movements 3 - Physical Exam Head: Positive for: Atraumatic, Normocephalic Pupils: Positive for: PERRL Extroacular Muscles: Positive for: EOMI Ears: Positive for: Normal Mouth: Positive for: Dry Respiratory/Chest: Positive for: Rales. Negative for: Wheezes Cardiovascular: Positive for: Murmurs, Normal S1, S2 Abdomen: Positive for: Normal Bowel Sounds Upper Extremity: Positive for: Normal Inspection. Negative for: Cyanosis Lower Extremity: Positive for: Normal Inspection. Negative for: Edema Neurological: Positive for: Speech Normal Skin: Positive for: Warm, Dry Psychiatric: Positive for: Alert - Medications Active Medications: Active Medications Generic Name Dose Route Start Last Admin Trade Name Freq PRN Reason Stop Dose Admin Aspirin 325 mg 09/07/18 09:00 09/09/18 10:14 Aspirin PO 325 mg DAILY ASHLEY Administration Enoxaparin Sodium 70 mg 09/07/18 09:00 09/09/18 10:10 Lovenox SC 70 mg DAILY ASHLEY Administration Protocol Lorazepam 2 mg 09/07/18 18:29 09/07/18 18:46 Ativan IVP 2 mg Q6 PRN Administration Agitation Metoprolol Tartrate 50 mg 09/10/18 09:00 Lopressor PO Q12 ASHLEY Morphine Sulfate 4 mg 09/07/18 18:29 09/08/18 04:44 Morphine IVP 4 mg Q4 PRN Administration Agitation Nitroglycerin 1 ea 09/07/18 09:00 09/09/18 21:00 Nitro-Bid 2% Oint TOP 1 ea QID ASHLEY Administration Pantoprazole Sodium 40 mg 09/07/18 09:00 09/09/18 10:09 Protonix Inj IVP 40 mg DAILY ASHLEY Administration - Patient Studies Lab Studies: Microbiology Studies 09/06/18 16:48 Blood Culture - Preliminary Blood NO GROWTH AFTER 3 DAYS 09/06/18 16:33 Blood Culture - Preliminary Blood NO GROWTH AFTER 3 DAYS 09/06/18 08:27 MRSA Culture (Admit) - Final Naris MRSA NOT DETECTED Lab Studies 09/10/18 09/10/18 09/10/18 Range/Units 05:01 04:48 04:48 WBC (4.8-10.8) K/uL RBC (4.40-5.90) Mil/uL Hgb (12.0-18.0) g/dL Hct (35.0-51.0) % MCV (80.0-94.0) fl MCH (27.0-31.0) pg MCHC (33.0-37.0) g/dL RDW (11.5-14.5) % Plt Count (130-400) K/uL PT 12.2 (9.8-13.1) Seconds INR 1.1 APTT 30.2 (25.6-37.1) Seconds Sodium 140 (132-148) mmol/l Potassium 4.0 (3.6-5.0) MMOL/L Chloride 104 (98-107) mmol/L Carbon Dioxide 25 (22-30) mmol/L Anion Gap 15 (10-20) BUN 71 H (9-20) mg/dl Creatinine 3.3 H (0.8-1.5) mg/dl Est GFR ( Amer) 22 Est GFR (Non-Af Amer) 18 POC Glucose (mg/dL) 119 H (65-110) mg/dL Random Glucose 123 H (75-110) mg/dL Calcium 8.5 (8.4-10.2) mg/dL Stool Occult Blood (NEGATIVE) Blood Type Antibody Screen Crossmatch BBK History Checked 09/10/18 09/09/18 09/09/18 Range/Units 04:48 21:32 16:50 WBC 8.8 (4.8-10.8) K/uL RBC 3.62 L (4.40-5.90) Mil/uL Hgb 9.9 L (12.0-18.0) g/dL Hct 30.5 L (35.0-51.0) % MCV 84.4 (80.0-94.0) fl MCH 27.3 (27.0-31.0) pg MCHC 32.3 L (33.0-37.0) g/dL RDW 17.3 H (11.5-14.5) % Plt Count 202 (130-400) K/uL PT (9.8-13.1) Seconds INR APTT (25.6-37.1) Seconds Sodium (132-148) mmol/l Potassium (3.6-5.0) MMOL/L Chloride (98-107) mmol/L Carbon Dioxide (22-30) mmol/L Anion Gap (10-20) BUN (9-20) mg/dl Creatinine (0.8-1.5) mg/dl Est GFR ( Amer) Est GFR (Non-Af Amer) POC Glucose (mg/dL) 140 H 114 H (65-110) mg/dL Random Glucose (75-110) mg/dL Calcium (8.4-10.2) mg/dL Stool Occult Blood (NEGATIVE) Blood Type Antibody Screen Crossmatch BBK History Checked 09/09/18 09/09/18 09/09/18 Range/Units 16:45 16:20 16:20 WBC 9.6 (4.8-10.8) K/uL RBC 4.03 L (4.40-5.90) Mil/uL Hgb 10.9 L (12.0-18.0) g/dL Hct 33.7 L (35.0-51.0) % MCV 83.6 (80.0-94.0) fl MCH 27.0 (27.0-31.0) pg MCHC 32.2 L (33.0-37.0) g/dL RDW 17.9 H (11.5-14.5) % Plt Count 233 (130-400) K/uL PT (9.8-13.1) Seconds INR APTT (25.6-37.1) Seconds Sodium (132-148) mmol/l Potassium (3.6-5.0) MMOL/L Chloride (98-107) mmol/L Carbon Dioxide (22-30) mmol/L Anion Gap (10-20) BUN (9-20) mg/dl Creatinine (0.8-1.5) mg/dl Est GFR ( Amer) Est GFR (Non-Af Amer) POC Glucose (mg/dL) (65-110) mg/dL Random Glucose (75-110) mg/dL Calcium (8.4-10.2) mg/dL Stool Occult Blood Positive H (NEGATIVE) Blood Type A POSITIVE Antibody Screen Negative Crossmatch See Detail BBK History Checked Patient has bt 09/09/18 Range/Units 12:13 WBC (4.8-10.8) K/uL RBC (4.40-5.90) Mil/uL Hgb (12.0-18.0) g/dL Hct (35.0-51.0) % MCV (80.0-94.0) fl MCH (27.0-31.0) pg MCHC (33.0-37.0) g/dL RDW (11.5-14.5) % Plt Count (130-400) K/uL PT (9.8-13.1) Seconds INR APTT (25.6-37.1) Seconds Sodium (132-148) mmol/l Potassium (3.6-5.0) MMOL/L Chloride (98-107) mmol/L Carbon Dioxide (22-30) mmol/L Anion Gap (10-20) BUN (9-20) mg/dl Creatinine (0.8-1.5) mg/dl Est GFR ( Amer) Est GFR (Non-Af Amer) POC Glucose (mg/dL) 176 H (65-110) mg/dL Random Glucose (75-110) mg/dL Calcium (8.4-10.2) mg/dL Stool Occult Blood (NEGATIVE) Blood Type Antibody Screen Crossmatch BBK History Checked Laboratory Results - last 24 hr 09/09/18 09/09/18 09/09/18 12:13 16:20 16:20 WBC 9.6 RBC 4.03 L Hgb 10.9 L Hct 33.7 L MCV 83.6 MCH 27.0 MCHC 32.2 L RDW 17.9 H Plt Count 233 PT INR APTT Sodium Potassium Chloride Carbon Dioxide Anion Gap BUN Creatinine Est GFR ( Amer) Est GFR (Non-Af Amer) POC Glucose (mg/dL) 176 H Random Glucose Calcium Stool Occult Blood Blood Type A POSITIVE Antibody Screen Negative Crossmatch See Detail BBK History Checked Patient has bt 09/09/18 09/09/18 09/09/18 16:45 16:50 21:32 WBC RBC Hgb Hct MCV MCH MCHC RDW Plt Count PT INR APTT Sodium Potassium Chloride Carbon Dioxide Anion Gap BUN Creatinine Est GFR ( Amer) Est GFR (Non-Af Amer) POC Glucose (mg/dL) 114 H 140 H Random Glucose Calcium Stool Occult Blood Positive H Blood Type Antibody Screen Crossmatch BBK History Checked 09/10/18 09/10/18 09/10/18 04:48 04:48 04:48 WBC 8.8 RBC 3.62 L Hgb 9.9 L Hct 30.5 L MCV 84.4 MCH 27.3 MCHC 32.3 L RDW 17.3 H Plt Count 202 PT 12.2 INR 1.1 APTT 30.2 Sodium 140 Potassium 4.0 Chloride 104 Carbon Dioxide 25 Anion Gap 15 BUN 71 H Creatinine 3.3 H Est GFR ( Amer) 22 Est GFR (Non-Af Amer) 18 POC Glucose (mg/dL) Random Glucose 123 H Calcium 8.5 Stool Occult Blood Blood Type Antibody Screen Crossmatch BBK History Checked 09/10/18 05:01 WBC RBC Hgb Hct MCV MCH MCHC RDW Plt Count PT INR APTT Sodium Potassium Chloride Carbon Dioxide Anion Gap BUN Creatinine Est GFR ( Amer) Est GFR (Non-Af Amer) POC Glucose (mg/dL) 119 H Random Glucose Calcium Stool Occult Blood Blood Type Antibody Screen Crossmatch BBK History Checked Fingerstick Blood Sugar Results: 119 Critical Care Progress Note - Nutrition Nutrition: Nutrition Category Date Time Status Liquid Diet [DIET] Diets 09/10/18 Breakfast Active Assessment/Plan - Assessment and Plan (Free Text) Assessment: A/P Acute respiratory failure improved, CHF, KENJI, anemia, ?GI bleed, HTN - Continue meds - O2 supplement - Pulmonary toilets - Cardiology follow up - GI follow up
[2018-09-10] MEDS: Nitroglycerin 2% Ointment Foilpak UD TOP SCH ×4 (08:58→21:43)
--- NOTE | 2018-09-11 00:52 | CP.PCM.PN ---
Subjective - Date & Time of Evaluation Date of Evaluation: 09/10/18 Time of Evaluation: 15:00 - Subjective Subjective: Patient had another episode of blood tinged stool Noted slight decrease in Hgb 9.9 Has no chest pain Has no SOB Still with elevated creatinine 4.4 and GFR 14 BP remains elevated 173/77 ND 70's Currently on metoprolol 50 BID Objective - Vital Signs/Intake and Output Vital Signs (last 24 hours): Temp Pulse Resp BP Pulse Ox 98.0 F 68 15 168/76 H 98 09/10/18 16:00 09/10/18 22:00 09/10/18 22:00 09/10/18 22:00 09/10/18 22:00 Intake and Output: 09/10/18 09/11/18 18:59 06:59 Intake Total 890 150 Output Total 1000 Balance -110 150 - Medications Medications: Current Medications Aspirin (Aspirin) 325 mg PO DAILY [facility] Last Admin: 09/10/18 14:37 Dose: 325 mg Enoxaparin Sodium (Lovenox) 70 mg SC DAILY [facility]; Protocol Last Admin: 09/09/18 10:10 Dose: 70 mg Metoprolol Tartrate (Lopressor) 50 mg PO Q12 [facility] Last Admin: 09/10/18 21:43 Dose: 50 mg Morphine Sulfate (Morphine) 4 mg IVP Q4 PRN PRN Reason: Agitation Last Admin: 09/08/18 04:44 Dose: 4 mg Nitroglycerin (Nitro-Bid 2% Oint) 1 ea TOP QID [facility] Last Admin: 09/10/18 21:43 Dose: 1 ea Pantoprazole Sodium (Protonix Ec Tab) 40 mg PO DAILY [facility] - Labs Labs: 09/10/18 04:48 09/10/18 04:48 PT 12.2 Seconds (9.8-13.1) 09/10/18 04:48 INR 1.1 09/10/18 04:48 APTT 30.2 Seconds (25.6-37.1) 09/10/18 04:48 - Head Exam Head Exam: NORMAL INSPECTION - Eye Exam Eye Exam: Normal appearance - Respiratory Exam Respiratory Exam: Clear to Ausculation Bilateral - Cardiovascular Exam Cardiovascular Exam: REGULAR RHYTHM - GI/Abdominal Exam GI & Abdominal Exam: Normal Bowel Sounds - Neurological Exam Neurological Exam: Awake Assessment and Plan (1) Congestive heart failure (CHF) Status: Acute (2) Acute renal failure (ARF) Status: Acute (3) DMII (diabetes mellitus, type 2) Status: Chronic (4) HTN (hypertension) Status: Chronic (5) Hyperkalemia Status: Acute (6) Leukocytosis Status: Acute (7) Anemia Status: Acute (8) Aortic regurgitation Status: Acute (9) Aortic stenosis Status: Acute (10) GI bleed Status: Acute - Assessment and Plan (Free Text) Plan: Monitor cbc follow up with GI Increase metoprolol to 100 bid add Enalapril
[2018-09-11 05:57] LABS: HEMOGLOBIN 9.9 g/dL (12.0-18.0); MEAN CELL VOLUME 84.8 fl (80.0-94.0); MEAN CORPUSCULAR HEMOGLOBIN 27.1 pg (27.0-31.0); RBC 3.65 Mil/uL (4.40-5.90); RED CELL DISTRIBUTION WIDTH 17.6 % (11.5-14.5); WHITE BLOOD COUNT 8.7 K/uL (4.8-10.8)
[2018-09-11 06:05] LABS: CALCIUM 8.6 mg/dL (8.4-10.2)
--- NOTE | 2018-09-11 07:41 | DS ---
REFERRING PHYSICIAN: Rashad Pena MD HISTORY OF PRESENT ILLNESS: This is a very pleasant 83-year-old gentleman, who is referred after being admitted this past Tuesday with chest pain and some type of cardiac issues. The patient was clinically stable, but yesterday had a bout of bright blood per rectum without a drop in his hemoglobin at that time and he was referred for GI evaluation this morning. As I evaluated the patient, he was lying comfortably in bed. Denies any nausea, vomiting, diaphoresis, dysphagia. He has no abdominal pain or discomfort. He has not had any bowel movements today, but he did have a rather large bloody bowel movement yesterday. Of note is that the patient and his who is at the bedside tell me that he was seen by Dr. Coker apparently a month or so ago. They are not clear exactly what he had at [facility] and apparently he had some endoscopic procedure done, unclear whether it was an upper or lower endoscopy or both. I need to find that out. Clinically, he is quite stable now and he denies any further bleeding. The Lovenox was held since yesterday as well, which may have helped. ALLERGIES: HE HAS NO KNOWN DRUG ALLERGIES. MEDICATIONS: Here in the hospital, he presently is on an aspirin 325 daily, p.r.n. Ativan. He is getting metoprolol 50 mg twice a day. He also gets nitroglycerin ointment patch to his skin on a daily basis and he is on pantoprazole IV, which I just changed to the p.o. form. PAST MEDICAL HISTORY: Coronary artery disease and hypertension. PAST SURGICAL HISTORY: Noncontributory. FAMILY HISTORY: Noncontributory. SOCIAL HISTORY: Denies any present alcohol, tobacco, or drug use. PHYSICAL EXAMINATION: GENERAL: A well-developed, well-nourished elderly gentleman. Awake, alert, and oriented x3 in no acute distress. VITAL SIGNS: Stable. He is afebrile. ABDOMEN: Soft with positive bowel sounds, nontender and nondistended. No hepatosplenomegaly, no palpable masses or lesions are appreciated. LABORATORY DATA: His hemoglobin yesterday was 10.6 after the episode of bloody bowel movement, it was 10.9. This morning it has dropped to 9.9, but his white count has been normal, it was 12 yesterday, it is 8.8 today. His SMA-7 is remarkable for BUN and creatinine of 71 and 3.3, that is slightly improved compared to where it had been. His stool occult blood was found to be positive. ASSESSMENT AND PLAN: An 83-year-old gentleman with an episode of bright red blood per rectum of unclear etiology. It is still unclear to me whether he had a colonoscopy a month or so ago, I need to find that out before pursuing any repeat examinations. At this point in time, I would restart him on a cardiac diet, switch him over to oral proton pump inhibition and repeat a CBC and SMA-7 tomorrow and we will make further recommendations moving forward as to whether he needs colonoscopy done. I do not think he needs a CAT scan at this point in time as he does not have any abdominal pain, fever, or any white blood cell count elevation. Therefore, I do not think he has any type of inflammatory process of the colon, and I will follow along with him. Gary Lau MD
--- NOTE | 2018-09-11 09:21 | CP.PCM.PN ---
Subjective - Date & Time of Evaluation Date of Evaluation: 09/11/18 Time of Evaluation: 09:20 - Subjective Subjective: patient awake and conscious Vital signs stable no Nausea no vomiting no chest pain reported Objective - Vital Signs/Intake and Output Vital Signs (last 24 hours): Temp Pulse Resp BP Pulse Ox 97.4 F L 59 L 18 162/65 H 100 09/11/18 08:49 09/11/18 08:49 09/11/18 08:49 09/11/18 08:49 09/11/18 08:49 Intake and Output: 09/11/18 09/11/18 06:59 18:59 Intake Total 390 Output Total 900 Balance -510 - Medications Medications: Current Medications Aspirin (Aspirin) 325 mg PO DAILY [facility] Last Admin: 09/10/18 14:37 Dose: 325 mg Enalapril Maleate (Vasotec) 10 mg PO DAILY [facility] Enoxaparin Sodium (Lovenox) 70 mg SC DAILY [facility]; Protocol Last Admin: 09/09/18 10:10 Dose: 70 mg Metoprolol Tartrate (Lopressor) 75 mg PO Q12 [facility] Morphine Sulfate (Morphine) 4 mg IVP Q4 PRN PRN Reason: Agitation Last Admin: 09/08/18 04:44 Dose: 4 mg Nitroglycerin (Nitro-Bid 2% Oint) 1 ea TOP QID [facility] Last Admin: 09/10/18 21:43 Dose: 1 ea Pantoprazole Sodium (Protonix Ec Tab) 40 mg PO DAILY [facility] - Labs Labs: 09/11/18 04:30 09/11/18 04:30 PT 12.2 Seconds (9.8-13.1) 09/10/18 04:48 INR 1.1 09/10/18 04:48 APTT 30.2 Seconds (25.6-37.1) 09/10/18 04:48 - Constitutional Appears: No Acute Distress - Eye Exam Eye Exam: Conjunctival injection - ENT Exam ENT Exam: Mucous Membranes Moist - Neck Exam Neck Exam: absent: Lymphadenopathy - Respiratory Exam Respiratory Exam: NORMAL BREATHING PATTERN. absent: Chest Wall Tenderness - Cardiovascular Exam Cardiovascular Exam: absent: Gallop, JVD, Rubs - GI/Abdominal Exam GI & Abdominal Exam: Soft, Normal Bowel Sounds - Extremities Exam Extremities Exam: absent: Calf Tenderness - Back Exam Back Exam: absent: CVA tenderness (L), CVA tenderness (R) - Neurological Exam Neurological Exam: Alert - Skin Skin Exam: absent: Cyanosis Assessment and Plan (1) Acute renal failure (ARF) Status: Acute (2) Kxtat-vi-scbmxhu kidney injury Assessment & Plan: KENJI/CKD stage 4/anemia/hyperkalemia/htn/acute resp failure the plan Patient improving serum creatinine coming down patient is recovering from acute kidney injury .Recovers from acute respiratory failure continue current management continue monitoring antibiotics and medication adjusted as per renal dose Status: Acute (3) Anemia Status: Acute
[2018-09-11] MEDS: Pantoprazole 40 mg EC Tab PO SCH (10:41)
[2018-09-11] MEDS: Nitroglycerin 2% Ointment Foilpak UD TOP SCH ×5 (10:44→22:26)
--- NOTE | 2018-09-11 12:23 | CP.PCM.PN ---
Subjective - Date & Time of Evaluation Date of Evaluation: 09/11/18 Time of Evaluation: 08:40 - Subjective Subjective: no overnight events Objective - Vital Signs/Intake and Output Vital Signs (last 24 hours): Temp Pulse Resp BP Pulse Ox 97.4 F L 59 L 18 162/65 H 100 09/11/18 08:49 09/11/18 08:49 09/11/18 08:49 09/11/18 08:49 09/11/18 08:49 Intake and Output: 09/11/18 09/11/18 06:59 18:59 Intake Total 390 Output Total 900 Balance -510 - Medications Medications: Current Medications Aspirin (Aspirin) 325 mg PO DAILY [facility] Last Admin: 09/11/18 10:43 Dose: 325 mg Enalapril Maleate (Vasotec) 10 mg PO DAILY [facility] Last Admin: 09/11/18 10:40 Dose: 10 mg Enoxaparin Sodium (Lovenox) 70 mg SC DAILY [facility]; Protocol Last Admin: 09/09/18 10:10 Dose: 70 mg Metoprolol Tartrate (Lopressor) 75 mg PO Q12 [facility] Last Admin: 09/11/18 10:40 Dose: 75 mg Morphine Sulfate (Morphine) 4 mg IVP Q4 PRN PRN Reason: Agitation Last Admin: 09/08/18 04:44 Dose: 4 mg Nitroglycerin (Nitro-Bid 2% Oint) 1 ea TOP QID [facility] Last Admin: 09/11/18 10:44 Dose: 1 ea Pantoprazole Sodium (Protonix Ec Tab) 40 mg PO DAILY [facility] Last Admin: 09/11/18 10:41 Dose: 40 mg - Labs Labs: 09/11/18 04:30 09/11/18 04:30 PT 12.2 Seconds (9.8-13.1) 09/10/18 04:48 INR 1.1 09/10/18 04:48 APTT 30.2 Seconds (25.6-37.1) 09/10/18 04:48 - Head Exam Head Exam: NORMOCEPHALIC - Neck Exam Neck Exam: Normal Inspection - Respiratory Exam Respiratory Exam: Clear to Ausculation Bilateral, NORMAL BREATHING PATTERN - Cardiovascular Exam Cardiovascular Exam: REGULAR RHYTHM - GI/Abdominal Exam GI & Abdominal Exam: Soft, Normal Bowel Sounds Assessment and Plan - Assessment and Plan (Free Text) Assessment: 83 yo male with fobt positive stool no active bleeding hgb stable will review previous endoscopic procedure reports
--- NOTE | 2018-09-11 18:18 | CP.PCM.CON ---
History of Present Illness - History of Present Illness History of Present Illness: I was asked to evaluate patient by Dr Weathers. Patient seen 09/11/18 1700 Patient is a 83 year old male with HTN, hypercholesterolemia, stage 4 kidney disease who presented with chest pain. He was found to be anemic with a Hgb 6 .6. The patient was intubated due to flash pulmonary edema. He was successfully extubated. Consultation was requested for management of . The patient has severe by echocardiogram. Review of Systems - Constitutional Constitutional: absent: As Per HPI, Anorexia, Chills, Daytime Sleepiness, Excessive Sweating, Fatigue, Fever, Frequent Falls, Headache, Increased Appetite, Lethargy, Malaise, Night Sweats, Snoring, Sleep Apnea, Weight Gain, Weight Loss, Weakness, Other - EENT Eyes: absent: As Per HPI, Blind Spots, Blurred Vision, Change in Vision, Decreased Night Vision, Diplopia, Discharge, Dry Eye, Exophthalmos, Floaters, Irritation, Itchy Eyes, Loss of Peripheral Vision, Pain, Photophobia, Requires Corrective Lenses, Sees Flashes, Spots in Vision, Tunnel Vision, Other Visual Di sturbances, Loss of Vision, Other Ears: absent: As Per HPI, Decreased Hearing, Ear Discharge, Ear Pain, Tinnitus, Abnormal Hearing, Disequilibrium, Dizziness, Other Nose/Mouth/Throat: absent: As Per HPI, Epistaxis, Nasal Congestion, Nasal Discharge, Nasal Obstruction, Nasal Trauma, Nose Pain, Post Nasal Drip, Sinus Pain, Sinus Pressure, Bleeding Gums, Change in Voice, Dental Pain, Dry Mouth, Dysphagia, Halitosis, Hoarsness, Lip Swelling, Mouth Lesions, Mouth Pain, Odynophagia, Sore Throat, Throat Swelling, Tongue Swelling, Facial Pain, Neck Pain, Neck Mass, Other - Cardiovascular Cardiovascular: Chest Pain, Dyspnea - Respiratory Respiratory: Dyspnea - Gastrointestinal Gastrointestinal: absent: As Per HPI, Abdominal Pain, Belching, Bloating, Change in Bowel Habits, Change in Stool Character, Coffee Ground Emesis, Constipation, Cramping, Diarrhea, Dyspepsia, Dysphagia, Early Satiety, Excessive Flatus, Fecal Incontinence, Heartburn, Hematemesis, Hematochezia, Loose Stools, Melena, Nausea, Odynophagia, Temesmus, Vomiting, Other - Genitourinary Genitourinary: absent: As Per HPI, Change in Urinary Stream, Difficulty Urinating, Dysuria, Flank Pain, Hematuria, Pyuria, Nocturia, Urinary Incontinence, Urinary Frequency, Urinary Hesitance, Urinary Urgency, Voiding Freq/Small Amts, Freq UTI, Hx Renal/Bladder Calculi, Hx /Renal Surgery, Bladder Distension, Other - Musculoskeletal Musculoskeletal: absent: As Per HPI, Abnormal Gait, Arthralgias, Atrophy, Back Pain, Deformity, Joint Swelling, Limited Range of Motion, Loss of Height, Muscle Cramps, Muscle Weakness, Myalgias, Neck Pain, Numbness, Radiating Pain into Limb, Stiffness, Tingling, Other - Integumentary Integumentary: absent: As Per HPI, Acne, Alopecia, Bleeding Lesions, Change in Hair, Change in Nails, Change in Pigmentation, Changing Lesions, Dry Skin, Erythema, Furuncle, Hirsutism, Lesions, New Lesions, Non-Healing Lesions, Photosensitivity, Pruritus, Rash, Skin Pain, Skin Ulcer, Sores, Striae, Swelling, Unusual Bruising, Wounds, Jaundice, Other - Neurological Neurological: absent: As Per HPI, Abnormal Gait, Abnormal Hearing, Abnormal Movements, Abnormal Speech, Behavioral Changes, Burning Sensations, Confusion, Convulsions, Disequilibrium, Dizziness, Numbness, Focal Weakness, Frequent Fal ls, Headaches, Lack of Coordination, Loss of Vision, Memory Loss, Paresthesias, Radicular Pain, Restless Legs, Sensory Deficit, Syncope, Tingling, Tremor, Vertigo, Weakness, Other Visual Disturbances, Other - Psychiatric Psychiatric: absent: As Per HPI, Abnormal Sleep Pattern, Anhedonia, Anxiety, Auditory Hallucinations, Behavioral Changes, Change in Appetite, Change in Libido, Confusion, Depression, Difficulty Concentrating, Hallucinations, Homicidal Ideation, Hopelessness, Irritability, Memory Loss, Mood Swings, Panic Attacks, Paranoia, Suicidal Ideation, Visual Hallucinations, Tactile Hallucinations, Other - Endocrine Endocrine: absent: As Per HPI, Change in Body Appearance, Change in Libido, Cold Intolorance, Deepening of Voice, Excessive Sweating, Fatigue, Flushing, Heat Intolorance, Increase in Ring/Shoe/Hat Size, Palpitations, Polydipsia, Polyphagia, Polyuria, Other - Hematologic/Lymphatic Hematologic: absent: As Per HPI, Easy Bleeding, Easy Bruising, Lymphadenopathy, Other Past Patient History - Past Medical History & Family History Past Medical History?: Yes - Past Social History Alcohol: None Drugs: Denies - CARDIAC Hx Hypertension: Yes - PULMONARY Hx Respiratory Disorders: Yes Hx Chronic Obstructive Pulmonary Disease (COPD): Yes - NEUROLOGICAL Hx Neurological Disorder: Yes Other/Comment: sciatica - HEENT Hx HEENT Problems: Yes Hx Cataracts: Yes - RENAL Hx Chronic Kidney Disease: Yes - ENDOCRINE/METABOLIC Hx Endocrine Disorders: Yes Hx Diabetes Mellitus Type 2: Yes - HEMATOLOGICAL/ONCOLOGICAL Hx Anemia: Yes - INTEGUMENTARY Hx Dermatological Problems: No - MUSCULOSKELETAL/RHEUMATOLOGICAL Hx Musculoskeletal Disorders: Yes Hx Back Pain: Yes Hx Falls: No Hx Unsteady Gait: Yes Other/Comment: sciatica - GASTROINTESTINAL Hx Gastritis: Yes Hx Pancreatitis: Yes - GENITOURINARY/GYNECOLOGICAL Hx Genitourinary Disorders: Yes Other/Comment: 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 Unable to get information from patient at this time - PSYCHIATRIC Hx Psychophysiologic Disorder: No Hx Emotional Abuse: No Hx Physical Abuse: No Hx Substance Use: No - SURGICAL HISTORY Hx Carotid Endarterectomy: Yes - ANESTHESIA Hx Anesthesia: Yes (anton ding) Hx Anesthesia Reactions: No Hx Malignant Hyperthermia: No Meds Allergies/Adverse Reactions: Allergies Allergy/AdvReac Type Severity Reaction Status Date / Time No Known Allergies Allergy Verified 09/06/18 15:42 - Medications Medications: Current Medications Aspirin (Aspirin) 325 mg PO DAILY [facility] Last Admin: 09/11/18 10:43 Dose: 325 mg Enalapril Maleate (Vasotec) 10 mg PO DAILY [facility] Last Admin: 09/11/18 10:40 Dose: 10 mg Enoxaparin Sodium (Lovenox) 70 mg SC DAILY [facility]; Protocol Last Admin: 09/09/18 10:10 Dose: 70 mg Metoprolol Tartrate (Lopressor) 75 mg PO Q12 [facility] Last Admin: 09/11/18 10:40 Dose: 75 mg Morphine Sulfate (Morphine) 4 mg IVP Q4 PRN PRN Reason: Agitation Last Admin: 09/08/18 04:44 Dose: 4 mg Nitroglycerin (Nitro-Bid 2% Oint) 1 ea TOP QID [facility] Last Admin: 09/11/18 17:56 Dose: 1 ea Pantoprazole Sodium (Protonix Ec Tab) 40 mg PO DAILY [facility] Last Admin: 09/11/18 10:41 Dose: 40 mg Physical Exam - Constitutional Appears: Non-toxic - Head Exam Head Exam: NORMAL INSPECTION - Eye Exam Eye Exam: Normal appearance - ENT Exam ENT Exam: Mucous Membranes Moist, Normal Exam - Neck Exam Neck exam: Positive for: Full Rom, Normal Inspection. Negative for: Tenderness, Thyromegaly - Respiratory Exam Respiratory Exam: Decreased Breath Sounds, NORMAL BREATHING PATTERN - Cardiovascular Exam Cardiovascular Exam: REGULAR RHYTHM, RRR, +S1, +S2, Systolic Murmur. absent: JVD - GI/Abdominal Exam GI & Abdominal Exam: Normal Bowel Sounds. absent: Rebound, Rigid - Rectal Exam Rectal Exam: Deferred - Extremities Exam Extremities exam: Positive for: normal inspection, pedal edema - Back Exam Back exam: NORMAL INSPECTION - Neurological Exam Neurological exam: Alert, Oriented x3 - Psychiatric Exam Psychiatric exam: Normal Affect - Skin Skin Exam: Normal Color Results - Vital Signs Recent Vital Signs: Last Vital Signs Temp 97.5 F L 09/11/18 15:55 Pulse 59 L 09/11/18 15:55 Resp 20 09/11/18 15:55 BP 176/71 H 09/11/18 15:55 Pulse Ox 98 09/11/18 15:55 - Labs Result Diagrams: 09/11/18 04:30 09/11/18 04:30 Labs: Laboratory Results - last 24 hr 09/08/18 09/10/18 09/10/18 04:20 11:27 21:47 WBC RBC Hgb Hct MCV MCH MCHC RDW Plt Count Sodium Potassium Chloride Carbon Dioxide Anion Gap BUN Creatinine Est GFR ( Amer) Est GFR (Non-Af Amer) POC Glucose (mg/dL) 133 H 116 H Random Glucose Calcium PTH Intact Whole Molec 436 H 09/11/18 09/11/18 09/11/18 04:30 04:30 05:07 WBC 8.7 RBC 3.65 L Hgb 9.9 L Hct 30.9 L MCV 84.8 MCH 27.1 MCHC 32.0 L RDW 17.6 H Plt Count 197 Sodium 138 Potassium 4.9 Chloride 104 Carbon Dioxide 24 Anion Gap 15 BUN 68 H Creatinine 2.9 H Est GFR ( Amer) 25 Est GFR (Non-Af Amer) 21 POC Glucose (mg/dL) 127 H Random Glucose 117 H Calcium 8.6 PTH Intact Whole Molec 09/11/18 09/11/18 11:14 16:09 WBC RBC Hgb Hct MCV MCH MCHC RDW Plt Count Sodium Potassium Chloride Carbon Dioxide Anion Gap BUN Creatinine Est GFR ( Amer) Est GFR (Non-Af Amer) POC Glucose (mg/dL) 283 H 111 H Random Glucose Calcium PTH Intact Whole Molec - EKG Data EKG Interpreted by: Myself EKG shows normal: Sinus rhythm Assessment & Plan (1) Aortic stenosis Assessment and Plan: patient has severe by echo. This is the likely etiology of the patient's previous flash pulmonary edema. Ideally he will benefit from coronary angiography to assess for concomitant CAD. he is at risk of progressive renal failure and contrast induced nephropathy if performed. He will need plan for dialysis or renal input prior to cardaic cath. recommend betablocker therapy. avoid afterload reduction due to . Status: Acute (2) Congestive heart failure (CHF) Assessment and Plan: due to may need valve replacement. continue medical therapy Status: Acute (3) Diabetes Assessment and Plan: risk factor for concomitant CAD. Status: Chronic (4) HTN (hypertension) Assessment and Plan: avoid afterload reduction Status: Chronic Priority: High
[2018-09-12] MEDS: Pantoprazole 40 mg EC Tab PO SCH (10:12)
[2018-09-12] MEDS: Nitroglycerin 2% Ointment Foilpak UD TOP SCH ×4 (10:16→21:36)
--- NOTE | 2018-09-12 10:47 | CP.PCM.PN ---
Subjective - Date & Time of Evaluation Date of Evaluation: 09/12/18 Time of Evaluation: 10:44 - Subjective Subjective: no overnight events Objective - Vital Signs/Intake and Output Vital Signs (last 24 hours): Temp Pulse Resp BP Pulse Ox 98.1 F 58 L 20 164/62 H 100 09/12/18 08:31 09/12/18 10:16 09/12/18 08:31 09/12/18 10:16 09/12/18 08:31 Intake and Output: 09/12/18 09/12/18 06:59 18:59 Output Total 600 Balance -600 - Medications Medications: Current Medications Aspirin (Aspirin) 325 mg PO DAILY [facility] Last Admin: 09/12/18 10:17 Dose: 325 mg Enalapril Maleate (Vasotec) 10 mg PO DAILY [facility] Last Admin: 09/12/18 10:12 Dose: 10 mg Enoxaparin Sodium (Lovenox) 70 mg SC DAILY [facility]; Protocol Last Admin: 09/09/18 10:10 Dose: 70 mg Metoprolol Tartrate (Lopressor) 75 mg PO Q12 [facility] Last Admin: 09/12/18 10:12 Dose: 75 mg Nitroglycerin (Nitro-Bid 2% Oint) 1 ea TOP QID [facility] Last Admin: 09/12/18 10:16 Dose: 1 ea Pantoprazole Sodium (Protonix Ec Tab) 40 mg PO DAILY [facility] Last Admin: 09/12/18 10:12 Dose: 40 mg - Labs Labs: 09/11/18 04:30 09/11/18 04:30 PT 12.2 Seconds (9.8-13.1) 09/10/18 04:48 INR 1.1 09/10/18 04:48 APTT 30.2 Seconds (25.6-37.1) 09/10/18 04:48 - Neck Exam Neck Exam: Normal Inspection - Respiratory Exam Respiratory Exam: Clear to Ausculation Bilateral - Cardiovascular Exam Cardiovascular Exam: REGULAR RHYTHM - GI/Abdominal Exam GI & Abdominal Exam: Soft, Normal Bowel Sounds Assessment and Plan - Assessment and Plan (Free Text) Assessment: 83 yo male with anemia no active bleeding hgb stable last egd within a few months, last colonoscopy within 9 months
[2018-09-12 11:48] LABS: CALCIUM 8.8 mg/dL (8.4-10.2)
--- NOTE | 2018-09-12 12:39 | CP.PCM.PN ---
Subjective - Date & Time of Evaluation Date of Evaluation: 09/12/18 Time of Evaluation: 12:39 - Subjective Subjective: Patient doing better, reports feeling fine, no overnight events, denies CP or sob. Objective - Vital Signs/Intake and Output Vital Signs (last 24 hours): Temp Pulse Resp BP Pulse Ox 98.1 F 58 L 20 164/62 H 100 09/12/18 08:31 09/12/18 10:16 09/12/18 08:31 09/12/18 10:16 09/12/18 08:31 Intake and Output: 09/12/18 09/12/18 06:59 18:59 Output Total 600 Balance -600 - Medications Medications: Current Medications Aspirin (Aspirin) 325 mg PO DAILY [facility] Last Admin: 09/12/18 10:17 Dose: 325 mg Enalapril Maleate (Vasotec) 10 mg PO DAILY [facility] Last Admin: 09/12/18 10:12 Dose: 10 mg Enoxaparin Sodium (Lovenox) 70 mg SC DAILY [facility]; Protocol Last Admin: 09/09/18 10:10 Dose: 70 mg Metoprolol Tartrate (Lopressor) 75 mg PO Q12 [facility] Last Admin: 09/12/18 10:12 Dose: 75 mg Nitroglycerin (Nitro-Bid 2% Oint) 1 ea TOP QID [facility] Last Admin: 09/12/18 10:16 Dose: 1 ea Pantoprazole Sodium (Protonix Ec Tab) 40 mg PO DAILY [facility] Last Admin: 09/12/18 10:12 Dose: 40 mg - Labs Labs: 09/11/18 04:30 09/12/18 11:30 PT 12.2 Seconds (9.8-13.1) 09/10/18 04:48 INR 1.1 09/10/18 04:48 APTT 30.2 Seconds (25.6-37.1) 09/10/18 04:48 - Constitutional Appears: No Acute Distress - Head Exam Head Exam: NORMAL INSPECTION - ENT Exam ENT Exam: Mucous Membranes Moist - Respiratory Exam Respiratory Exam: Clear to Ausculation Bilateral, NORMAL BREATHING PATTERN - Cardiovascular Exam Cardiovascular Exam: REGULAR RHYTHM, +S1, +S2 - GI/Abdominal Exam GI & Abdominal Exam: Soft, Normal Bowel Sounds. absent: Distended, Tenderness - Extremities Exam Extremities Exam: Pedal Edema - Neurological Exam Neurological Exam: Alert, Oriented x3 - Skin Skin Exam: Dry, Warm Assessment and Plan - Assessment and Plan (Free Text) Assessment: 83 y/o M with a PMHx of severe aortic stenosis, Chronic kidney disease stage 4, HTN and DM admitted due to acute flash pulmonary edema, hyperkalemia, anemia and declining renal function. Plan: - Cardiology on board, Dr Pena, recommendations appreciated - Nephrology on board, Dr Nair, recommendations appreciated - creatinine improving - Noted slight decrease in Hgb 9.9, f/u CBC in am - BP still in the high side - rest of plan as ordered Case discussed with Dr Hebertuez
--- NOTE | 2018-09-12 13:44 | CP.PCM.PN ---
Subjective - Date & Time of Evaluation Date of Evaluation: 09/12/18 Time of Evaluation: 13:42 - Subjective Subjective: patient sitting up in the chair and up and around Objective - Vital Signs/Intake and Output Vital Signs (last 24 hours): Temp Pulse Resp BP Pulse Ox 97.3 F L 59 L 18 152/71 H 97 09/12/18 12:00 09/12/18 12:00 09/12/18 12:00 09/12/18 12:00 09/12/18 12:00 Intake and Output: 09/12/18 09/12/18 06:59 18:59 Output Total 600 Balance -600 - Medications Medications: Current Medications Aspirin (Aspirin) 325 mg PO DAILY [facility] Last Admin: 09/12/18 10:17 Dose: 325 mg Enalapril Maleate (Vasotec) 10 mg PO DAILY [facility] Last Admin: 09/12/18 10:12 Dose: 10 mg Enoxaparin Sodium (Lovenox) 70 mg SC DAILY [facility]; Protocol Last Admin: 09/09/18 10:10 Dose: 70 mg Metoprolol Tartrate (Lopressor) 75 mg PO Q12 [facility] Last Admin: 09/12/18 10:12 Dose: 75 mg Nitroglycerin (Nitro-Bid 2% Oint) 1 ea TOP QID [facility] Last Admin: 09/12/18 10:16 Dose: 1 ea Pantoprazole Sodium (Protonix Ec Tab) 40 mg PO DAILY [facility] Last Admin: 09/12/18 10:12 Dose: 40 mg - Labs Labs: 09/11/18 04:30 09/12/18 11:30 PT 12.2 Seconds (9.8-13.1) 09/10/18 04:48 INR 1.1 09/10/18 04:48 APTT 30.2 Seconds (25.6-37.1) 09/10/18 04:48 - Constitutional Appears: No Acute Distress - Eye Exam Eye Exam: Conjunctival injection - ENT Exam ENT Exam: Mucous Membranes Moist - Respiratory Exam Respiratory Exam: NORMAL BREATHING PATTERN - Cardiovascular Exam Cardiovascular Exam: absent: JVD, Rubs - GI/Abdominal Exam GI & Abdominal Exam: Soft, Normal Bowel Sounds - Extremities Exam Extremities Exam: absent: Calf Tenderness - Back Exam Back Exam: absent: CVA tenderness (L), CVA tenderness (R) - Neurological Exam Neurological Exam: Alert - Psychiatric Exam Psychiatric exam: Normal Affect - Skin Skin Exam: absent: Cyanosis Assessment and Plan (1) Acute renal failure (ARF) Status: Acute (2) [id number] kidney injury Assessment & Plan: acute kidney injury superimposed perhaps on chronic kidney disease may be stage III Patient continued to improve serum creatinine coming down Status post respiratory failure was congestive heart failure doing much better Continue monitoring Status: Acute (3) Anemia Status: Acute
[2018-09-13 05:24] LABS: BASO % 0.3 % (0.0-2.0); EOS # 0.4 K/uL (0.0-0.7); EOS % 4.7 % (0.0-4.0); HEMOGLOBIN 9.5 g/dL (12.0-18.0); LYMPH # 0.7 K/uL (1.0-4.3); LYMPH % 8.4 % (20.0-40.0); MEAN CORPUSCULAR HEMOGLOBIN 27.2 pg (27.0-31.0); MEAN PLATELET VOLUME 7.9 fl (7.2-11.7); MONO # 0.8 K/uL (0.0-0.8); MONO % 9.6 % (0.0-10.0); NEUT # 6.3 K/uL (1.8-7.0); PLATELET COUNT 184 K/uL (130-400); RBC 3.48 Mil/uL (4.40-5.90); RED CELL DISTRIBUTION WIDTH 17.4 % (11.5-14.5); WHITE BLOOD COUNT 8.3 K/uL (4.8-10.8)
[2018-09-13 05:42] LABS: ALB/GLOB RATIO 1.1 (1.0-2.1); ALBUMIN 3.3 g/dL (3.5-5.0); CALCIUM 8.9 mg/dL (8.4-10.2)
[2018-09-13] MEDS: Pantoprazole 40 mg EC Tab PO SCH (09:17)
[2018-09-13] MEDS: Nitroglycerin 2% Ointment Foilpak UD TOP SCH ×2 (09:19→13:03)
[2018-09-13 10:29] LABS: ANISOCYTOSIS SLIGHT; EOSINOPHIL 2 % (0-7); LYMPHOCYTE 10 % (20-50); MONOCYTE 9 % (0-10); NEUTROPHIL 79 % (42-75); PLATELET ESTIMATE NORMAL (NORMAL); TOTAL CELLS COUNTED 100; TOXIC GRANULATION PRESENT
[2018-09-13 12:34] VITALS: PULSE 59; TEMP 97.3
--- NOTE | 2018-09-13 13:59 | CP.PCM.PN ---
Subjective - Date & Time of Evaluation Date of Evaluation: 09/13/18 Time of Evaluation: 13:56 - Subjective Subjective: Patient is conscious and sitting in the chair not in acute distress Objective - Vital Signs/Intake and Output Vital Signs (last 24 hours): Temp Pulse Resp BP Pulse Ox 97.3 F L 59 L 20 143/55 L 98 09/13/18 12:33 09/13/18 13:04 09/13/18 12:33 09/13/18 13:04 09/13/18 12:33 Intake and Output: 09/13/18 09/13/18 06:59 18:59 Output Total 225 Balance -225 - Medications Medications: Current Medications Amlodipine Besylate (Norvasc) 5 mg PO DAILY [facility] Last Admin: 09/13/18 13:04 Dose: 5 mg Aspirin (Aspirin) 325 mg PO DAILY [facility] Last Admin: 09/13/18 09:19 Dose: 325 mg Enoxaparin Sodium (Lovenox) 70 mg SC DAILY [facility]; Protocol Last Admin: 09/09/18 10:10 Dose: 70 mg Metoprolol Tartrate (Lopressor) 75 mg PO Q12 [facility] Last Admin: 09/13/18 09:16 Dose: 75 mg Nitroglycerin (Nitro-Bid 2% Oint) 1 ea TOP QID [facility] Last Admin: 09/13/18 13:03 Dose: 1 ea Pantoprazole Sodium (Protonix Ec Tab) 40 mg PO DAILY [facility] Last Admin: 09/13/18 09:17 Dose: 40 mg Sitagliptin Phosphate (Januvia) 25 mg PO DAILY [facility] Last Admin: 09/13/18 09:17 Dose: 25 mg - Labs Labs: 09/13/18 04:55 09/13/18 04:55 PT 12.2 Seconds (9.8-13.1) 09/10/18 04:48 INR 1.1 09/10/18 04:48 APTT 30.2 Seconds (25.6-37.1) 09/10/18 04:48 - Constitutional Appears: No Acute Distress - Eye Exam Eye Exam: Conjunctival injection - ENT Exam ENT Exam: Mucous Membranes Moist - Respiratory Exam Respiratory Exam: NORMAL BREATHING PATTERN. absent: Rales - Cardiovascular Exam Cardiovascular Exam: REGULAR RHYTHM. absent: Gallop, Rubs - GI/Abdominal Exam GI & Abdominal Exam: Soft, Normal Bowel Sounds - Extremities Exam Extremities Exam: absent: Calf Tenderness - Back Exam Back Exam: absent: CVA tenderness (L), CVA tenderness (R) - Neurological Exam Neurological Exam: Alert - Psychiatric Exam Psychiatric exam: Normal Affect - Skin Skin Exam: absent: Cyanosis Assessment and Plan (1) Acute renal failure (ARF) Status: Acute (2) Nciej-kz-cdzwvfl kidney injury Assessment & Plan: Patient appears to have acute kidney injury superimposed on chronic kidney disease stage 3? Hyperkalemia Hypertension anemia Recommendation ultrasound of the kidney Serum phosphorus Serum PTH PSA if not done Add Norvasc 2 on antihy Kayexalate 15 g for hyperkalemia Status: Acute (3) Anemia Status: Acute
[2018-09-13 16:13] VITALS: BP 152/70; RESP 18; O2SAT 97
--- NOTE | 2018-09-15 13:44 | PQF ---
PROVIDER RESPONSE TEXT: Acute VT was ruled out per cardiology REVIEWER QUERY TEXT: Myocardial Infarction Type Can you please confirm if Acute VT was ruled in or out after study. The patient's Clinical Indicators include: Cardiology consult 09/06 states - "acute flash pulmonary edema; possibility of Acute NSTEMI"; Troponin elevated x2; BNP - 8410; Query created by: Kristin Pantoja on 09/14/2018 1:55 PM Electronically signed by: Rashad Pena MD 09/15/2018 1:41 PM
--- NOTE | 2018-09-15 13:44 | PQF ---
PROVIDER RESPONSE TEXT: Systolic chf REVIEWER QUERY TEXT: CHF Acuity and Type Congestive Heart Failure is documented in the Medical Record. Please document the type and acuity (in cludes probable or suspected) Such as: Type: -- Systolic -- Diastolic -- Combined -- Other, please specify Acuity: -- Acute -- Chronic -- Acute on chronic -- Other, please specify Also please document the underlying cause of the CHF (includes probable or suspected) The patient's Clinical Indicators include: Pulmonary Edema and PRO BNP - 6840 on admission; Documentation of Acute CHF; Query created by: Kristin Pantoja on 09/14/2018 1:50 PM Electronically signed by: Rashad Pena MD 09/15/2018 1:41 PM
== END 2018-09-13 16:20 | disposition home health service (06) | DRG 208 ==
LOC: H.ER 15:40 → H.ERHOLD 17:57 → H.ICU/CCU 20:42 → H.TEL 09-11 00:30
PROVIDERS: ADMIT Family Medicine; ATTEND Family Medicine
PROC: 5A1945Z Respiratory Ventilation, 24-96 Consecutive Hours (ICD-10-PCS; principal; 2018-09-06)
PROC: 0BH17EZ Insertion of Endotracheal Airway into Trachea, Via Natural or Artificial Opening (ICD-10-PCS; 2018-09-06)
PROC: 06HY33Z Insertion of Infusion Device into Lower Vein, Percutaneous Approach (ICD-10-PCS; 2018-09-06)
PROC: 30233N1 Transfusion of Nonautologous Red Blood Cells into Peripheral Vein, Percutaneous Approach (ICD-10-PCS; 2018-09-06)
DX: J96.00 Acute respiratory failure, unspecified whether with hypoxia or hypercapnia (principal); I50.21 Acute systolic (congestive) heart failure; N17.9 Acute kidney failure, unspecified; I13.0 Hypertensive heart and chronic kidney disease with heart failure and stage 1 through stage 4 chronic kidney disease, or unspecified chronic kidney disease; N18.4 Chronic kidney disease, stage 4 (severe); I24.8 Other forms of acute ischemic heart disease; K62.5 Hemorrhage of anus and rectum; E87.5 Hyperkalemia; E86.0 Dehydration; I25.10 Atherosclerotic heart disease of native coronary artery without angina pectoris; I35.2 Nonrheumatic aortic (valve) stenosis with insufficiency; E11.22 Type 2 diabetes mellitus with diabetic chronic kidney disease; D63.1 Anemia in chronic kidney disease; D72.828 Other elevated white blood cell count; E78.00 Pure hypercholesterolemia, unspecified; K29.70 Gastritis, unspecified, without bleeding; F17.210 Nicotine dependence, cigarettes, uncomplicated; Z78.1 Physical restraint status

== ENCOUNTER 2018-10-21 15:12 | Inpatient (IN) | payer MEDICARE ==
[2018-10-21 15:12] VITALS: BMI 24.3
[2018-10-21] MEDS ORDERED: Nitroglycerin 50mg in D5W 50 MG/250 ML BOTTLE IV ONE ×2 (16:17→16:20)
[2018-10-21 16:24] LABS: ABG ALLEN TEST YES; ARTERIAL BLOOD GAS HCO3 9.4 mmol/L (21-28); ARTERIAL BLOOD GAS O2 SAT 99.5 % (95-98); ARTERIAL BLOOD GAS PCO2 35 mm/Hg (35-45); ARTERIAL BLOOD GAS PH 7.05 (7.35-7.45); ARTERIAL BLOOD GAS PO2 134 mm/Hg (80-100); ARTERIAL BLOOD GAS TCO2 10.8 mmol/L (22-28)
[2018-10-21 16:38] LABS: PROTHROMBIN TIME 11.5 Seconds (9.8-13.1)
[2018-10-21 16:40] LABS: PARTIAL THROMBOPLASTIN TIME 23.5 Seconds (25.6-37.1)
[2018-10-21 16:49] LABS: BASO # 0.1 K/uL (0.0-0.2); BASO % 0.5 % (0.0-2.0); EOS % 0.1 % (0.0-4.0); LYMPH # 2.1 K/uL (1.0-4.3); LYMPH % 12.4 % (20.0-40.0); MEAN CELL VOLUME 90.4 fl (80.0-94.0); MEAN CORPUSCULAR HEMOGLOBIN 26.2 pg (27.0-31.0); MEAN CORPUSCULAR HGB CONC 28.9 g/dL (33.0-37.0); MEAN PLATELET VOLUME 7.7 fl (7.2-11.7); MONO # 1.4 K/uL (0.0-0.8); MONO % 8.5 % (0.0-10.0); NEUT # 13.3 K/uL (1.8-7.0); NEUT % 78.5 % (50.0-75.0); RBC 2.36 Mil/uL (4.40-5.90); RED CELL DISTRIBUTION WIDTH 20.2 % (11.5-14.5); WHITE BLOOD COUNT 16.9 K/uL (4.8-10.8)
[2018-10-21 16:50] LABS: URINE BACTERIA MANY (<OCC); URINE BILIRUBIN NEGATIVE (NEGATIVE); URINE BLOOD MODERATE (NEGATIVE); URINE CLARITY CLOUDY (Clear); URINE COLOR YELLOW (YELLOW); URINE GLUCOSE (UA) NEG (NEGATIVE); URINE LEUKOCYTE ESTERASE LARGE Leu/uL (Negative); URINE PROTEIN 30 mg/dL (NEGATIVE); URINE UROBILINOGEN 0.2-1.0 mg/dL (0.2-1.0); WBC CLUMPS FEW /hpf
[2018-10-21 16:55] LABS: ALB/GLOB RATIO 1.4 (1.0-2.1); ALBUMIN 4.2 g/dL (3.5-5.0); CALCIUM 9.9 mg/dL (8.4-10.2)
--- NOTE | 2018-10-21 16:56 | ED PDOC ---
HPI: Chest Pain Time Seen by Provider: 10/21/18 15:30 Chief Complaint (Nursing): Chest Pain Chief Complaint (Provider): Chest Pain History Per: Patient History/Exam Limitations: no limitations Onset/Duration Of Symptoms: Days Current Symptoms Are (Timing): Still Present Additional Complaint(s): Patient is an 83 y/o male with a PMHx of anemia, HTN, DM, pancreatitis, anemia, CHF, acute pulmonary edema, and kidney stones who presents to the ED for evaluation of acute onset CP and SOB. states symptoms have been ongoing and worsening since yesterday. Patient went into APE on arrival and was resuscitated. Patient reports feeling better. After further discussion with , patient denies fever and recent illness. Of note, patient scheduled for surgical cardiac procedure with Dr. Bhardwaj on 10/24/2018. PCP: Dr. Anuel Benson Past Medical History Reviewed: Historical Data (CHF and Acute Pulmonary Edema), Nursing Documentation, Vital Signs Vital Signs: Last Vital Signs Temp 97.4 F L 10/21/18 15:19 Pulse 96 H 10/21/18 16:33 Resp 26 H 10/21/18 16:33 BP 134/63 10/21/18 16:33 Pulse Ox 100 10/21/18 16:33 - Medical History PMH: Anemia, COPD, Diabetes (pre), Gastritis, HTN, Pancreatitis, Chronic Kidney Disease - Surgical History Surgical History: Carotid Endarterectomy, Hernia Repair - Family History Family History: States: Unknown Family Hx - Home Medications Home Medications: Ambulatory Orders Medication Instructions Recorded RX: Dexlansoprazole [Dexilant] 60 mg PO DAILY 09/06/18 RX: Isosorbide Mononitrate ER 60 mg PO DAILY 09/06/18 [Imdur ER] Aspirin [Adult Aspirin] 81 mg PO DAILY #30 tablet. 09/12/18 RX: Metoprolol Tartrate [Lopressor] 75 mg PO Q12 #60 tab 09/12/18 SITagliptin [Januvia] 100 mg PO DAILY #30 tab 09/12/18 Ferrous Sulfate [Feosol] 325 mg PO DAILY 10/21/18 Losartan Potassium [Cozaar] 100 mg PO DAILY 10/21/18 - Allergies Allergies/Adverse Reactions: Allergies Allergy/AdvReac Type Severity Reaction Status Date / Time No Known Allergies Allergy Verified 09/06/18 15:42 Review of Systems ROS Statement: Except As Marked, All Systems Reviewed And Found Negative Constitutional: Negative for: Fever Cardiovascular: Positive for: Chest Pain Respiratory: Positive for: Shortness of Breath Physical Exam - Reviewed Nursing Documentation Reviewed: Yes Vital Signs Reviewed: Yes - Physical Exam Appears: Positive for: No Acute Distress Head Exam: Positive for: ATRAUMATIC, NORMAL INSPECTION, NORMOCEPHALIC Skin: Positive for: Normal Color Eye Exam: Positive for: Normal appearance ENT: Positive for: Normal ENT Inspection Neck: Positive for: Normal Cardiovascular/Chest: Negative for: Gallop, Murmur, Friction Rub Respiratory: Positive for: Crackles (Bilaterally), Respiratory Distress, Other (Tachypneic) Gastrointestinal/Abdominal: Positive for: Soft. Negative for: Tenderness Extremity: Positive for: Normal ROM Neurologic/Psych: Positive for: Alert, Oriented - Laboratory Results Result Diagrams: 10/25/18 04:30 10/25/18 04:30 - ECG O2 Sat by Pulse Oximetry: 100 (RA) Pulse Ox Interpretation: Normal Medical Decision Making Medical Decision Making: Time: 1613 Plan: Type and Screen ABG Shock Panel EKG BNP CMP Troponin I BNP CMP CBC D Dimer PTT Prothrombin Time Chest Portable XRay Glucose, POC Lasix 40 mg IVP [NTG 50 mg/250 ml D5W] 50 mg in 250 ml IV 5 mcg/min (x2) [Nitrostat SL Tab] 0.4 mg SL Blood Culture Influenza A B UA Time: 1645 Comparison of EKG to previous shows no changes. Repeat EKG after sublingual NTG also shows no changes. After bipap and 80mg NTG started. Improved saturation, heart rate, and symptoms. Labs pending. Will admit to telemetry when ab results return. Contact Dr. Bhardwaj for reevaluation. Time: 1711 Hemoglobin at 6. Will start Blood transfusion. Troponin and BN pending. Will try to contact PCP at this point. Time: 1730 High leukocyte esterase urine. Will start antibiotic. Code sepsis activated. IV fluid protocol not followed for pulmonary edema and need for diaresis. Time: [address] Bhardwaj who agrees with treatment and plan for intensive bed side care. Scribe Attestation: Documented by Shawn Catalan, acting as a scribe for Dr. Diana Nj. Provider Scribe Attestation: All medical record entries made by the Scribe were at my direction and personally dictated by me. I have reviewed the chart and agree that the record accurately reflects my personal performance of the history, physical exam, medical decision making, and the department course for this patient. I have also personally directed, reviewed, and agree with the discharge instructions and disposition. 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
[2018-10-21 17:05] LABS: HEMOGLOBIN 6.2 g/dL (12.0-18.0)
[2018-10-21 17:22] LABS: TROPONIN I 7.68 ng/mL (0.00-0.120)
[2018-10-21] MEDS: Cefepime 1 GM in Sodium Chloride 0.9% 100 ML IVPB SCH (18:02)
--- NOTE | 2018-10-21 18:11 | CP.PCM.CON ---
History of Present Illness - History of Present Illness History of Present Illness: 83 YOM came to ER with c/o left sided CP off and on for two days, even before that he was having this pain off and on for weeks but more frequent for two days. No radiation, its dull pain, no fever or cough, but did feel SOB at times. No pain on deep breath, in ER he was evaluated, CXR showing pulm congestion, Pt was anemic , Hb 6.5 and leukocytosis , WBC 16 K, serum bicarb was very low 9, and serum lactate was high 8, code sepsis was also called. Pt to get blood culture and antibiotics in ER and also two units of blood transfusion. IVF cannot be given, je is already has pulm edema. He hot 120 mg IV lasix in ER. His BP was a bit high. Pt. is on BiPAP in ER. His previous history reviewed from hospital record. Has h/o sever , CHF, DM, and CKD-4 and metabolic acidosis in the past. He has been a smoker for 40 years, just quit 3 months ago. He has been anemic chronically, probably from CKD. Review of Systems - Review of Systems Systems not reviewed;Unavailable: Unstable Vital Signs, Respiratory Distress - Constitutional Constitutional: As Per HPI - EENT Eyes: As Per HPI Ears: As Per HPI Nose/Mouth/Throat: As Per HPI - Cardiovascular Cardiovascular: As Per HPI, Chest Pain - Respiratory Respiratory: Dyspnea - Gastrointestinal Gastrointestinal: As Per HPI - Genitourinary Genitourinary: As Per HPI - Reproductive: Male Reproductive:Male: As Per HPI Past Patient History - Past Medical History & Family History Past Medical History?: Yes - Past Social History Smoking Status: Smoker Currrent Status Unknown - CARDIAC Hx Hypertension: Yes - PULMONARY Hx Chronic Obstructive Pulmonary Disease (COPD): Yes - NEUROLOGICAL Hx Neurological Disorder: Yes Other/Comment: sciatica - HEENT Hx HEENT Problems: Yes Hx Cataracts: Yes - RENAL Hx Chronic Kidney Disease: Yes - ENDOCRINE/METABOLIC Hx Endocrine Disorders: Yes Hx Diabetes Mellitus Type 2: Yes - HEMATOLOGICAL/ONCOLOGICAL Hx Anemia: Yes - INTEGUMENTARY Hx Dermatological Problems: No - MUSCULOSKELETAL/RHEUMATOLOGICAL Hx Musculoskeletal Disorders: Yes Hx Back Pain: Yes Hx Falls: No Hx Unsteady Gait: Yes Other/Comment: sciatica - GASTROINTESTINAL Hx Gastritis: Yes Hx Pancreatitis: Yes - GENITOURINARY/GYNECOLOGICAL Hx Genitourinary Disorders: Yes Other/Comment: 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 Unable to get information from patient at this time - PSYCHIATRIC Hx Psychophysiologic Disorder: No Hx Emotional Abuse: No Hx Physical Abuse: No Hx Substance Use: No - SURGICAL HISTORY Hx Carotid Endarterectomy: Yes - ANESTHESIA Hx Anesthesia: Yes ([place]) Hx Anesthesia Reactions: No Hx Malignant Hyperthermia: No Meds Allergies/Adverse Reactions: Allergies Allergy/AdvReac Type Severity Reaction Status Date / Time No Known Allergies Allergy Verified 09/06/18 15:42 - Medications Medications: Current Medications Nitroglycerin/Dextrose (Nitroglycerin 50 Mg/250 Ml D5w) 50 mg in 250 mls @ 1.5 mls/hr IV .Q24H ONE; Protocol Stop: 10/22/18 16:16 Last Admin: 10/21/18 16:25 Dose: 5 mcg/min, 1.5 mls/hr Cefepime HCl 1 gm/ Sodium (Chloride) 100 mls @ 100 mls/hr IVPB DAILY [facility]; Protocol Physical Exam - Constitutional Appears: Non-toxic - Head Exam Head Exam: ATRAUMATIC - Eye Exam Eye Exam: Normal appearance - ENT Exam ENT Exam: Mucous Membranes Moist - Neck Exam Neck exam: Positive for: Normal Inspection - Respiratory Exam Respiratory Exam: Rales - Cardiovascular Exam Cardiovascular Exam: REGULAR RHYTHM - GI/Abdominal Exam GI & Abdominal Exam: Soft - Rectal Exam Rectal Exam: Deferred Results - Vital Signs Recent Vital Signs: Last Vital Signs Temp 96.9 F L 10/21/18 17:53 Pulse 96 H 10/21/18 16:33 Resp 26 H 10/21/18 16:33 BP 134/63 10/21/18 16:33 Pulse Ox 100 10/21/18 17:45 - Labs Result Diagrams: 10/21/18 16:16 10/21/18 16:16 Labs: Laboratory Results - last 24 hr 10/21/18 10/21/18 10/21/18 16:05 16:15 16:16 WBC RBC Hgb Hct MCV MCH MCHC RDW Plt Count MPV Neut % (Auto) Lymph % (Auto) [place] % (Auto) Eos % (Auto) Baso % (Auto) Neut # (Auto) Lymph # (Auto) [place] # (Auto) Eos # (Auto) Baso # (Auto) PT INR APTT D-Dimer, Quantitative pCO2 35 pO2 134 H HCO3 9.4 L* ABG pH 7.05 L* ABG Total CO2 10.8 L ABG O2 Saturation 99.5 H ABG Base Excess -19.9 L Rashawn Test Yes ABG Potassium 5.6 H A-a O2 Difference 535.0 Sodium 134.0 136 Chloride 106.0 109 H Glucose 315 H Lactate 8.1 H* FiO2 100.0 Crit Value Called To Dr antonieta barba Crit Value Called By Maryjane juarez rt Crit Value Read Back Y Blood Gas Notified Time 1623 Potassium 5.7 H Carbon Dioxide 8 L* D Anion Gap 25 H BUN 61 H Creatinine 4.0 H Est GFR ( Amer) 17 Est GFR (Non-Af Amer) 14 POC Glucose (mg/dL) 237 H Random Glucose 292 H Calcium 9.9 Total Bilirubin 0.3 AST 55 ALT 27 Alkaline Phosphatase 107 Troponin I 7.6800 H* NT-Pro-B Natriuret Pep 8850 H Total Protein 7.1 Albumin 4.2 Globulin 2.9 Albumin/Globulin Ratio 1.4 Arterial Blood Potassium 5.6 H Urine Color Urine Clarity Urine pH Ur Specific [place] Urine Protein Urine Glucose (UA) Urine Ketones Urine Blood Urine Nitrate Urine Bilirubin Urine Urobilinogen Ur Leukocyte Esterase Urine RBC (Auto) Urine WBC Clumps (Auto) Urine Microscopic WBC Urine Bacteria Blood Type Antibody Screen BBK History Checked 10/21/18 10/21/18 10/21/18 16:16 16:16 16:16 WBC 16.9 H D RBC 2.36 L Hgb 6.2 L* D Hct 21.4 L MCV 90.4 D MCH 26.2 L MCHC 28.9 L RDW 20.2 H Plt Count 401 H D MPV 7.7 Neut % (Auto) 78.5 H Lymph % (Auto) 12.4 L [place] % (Auto) 8.5 Eos % (Auto) 0.1 Baso % (Auto) 0.5 Neut # (Auto) 13.3 H Lymph # (Auto) 2.1 [place] # (Auto) 1.4 H Eos # (Auto) 0.0 Baso # (Auto) 0.1 PT 11.5 INR 1.0 APTT 23.5 L D-Dimer, Quantitative 2433 H pCO2 pO2 HCO3 ABG pH ABG Total CO2 ABG O2 Saturation ABG Base Excess Rashawn Test ABG Potassium A-a O2 Difference Sodium Chloride Glucose Lactate FiO2 Crit Value Called To Crit Value Called By Crit Value Read Back Blood Gas Notified Time Potassium Carbon Dioxide Anion Gap BUN Creatinine Est GFR ( Amer) Est GFR (Non-Af Amer) POC Glucose (mg/dL) Random Glucose Calcium Total Bilirubin AST ALT Alkaline Phosphatase Troponin I NT-Pro-B Natriuret Pep Total Protein Albumin Globulin Albumin/Globulin Ratio Arterial Blood Potassium Urine Color Urine Clarity Urine pH Ur Specific [place] Urine Protein Urine Glucose (UA) Urine Ketones Urine Blood Urine Nitrate Urine Bilirubin Urine Urobilinogen Ur Leukocyte Esterase Urine RBC (Auto) Urine WBC Clumps (Auto) Urine Microscopic WBC Urine Bacteria Blood Type A POSITIVE Antibody Screen Negative BBK History Checked Patient has bt 10/21/18 16:16 WBC RBC Hgb Hct MCV MCH MCHC RDW Plt Count MPV Neut % (Auto) Lymph % (Auto) [place] % (Auto) Eos % (Auto) Baso % (Auto) Neut # (Auto) Lymph # (Auto) [place] # (Auto) Eos # (Auto) Baso # (Auto) PT INR APTT D-Dimer, Quantitative pCO2 pO2 HCO3 ABG pH ABG Total CO2 ABG O2 Saturation ABG Base Excess Rashawn Test ABG Potassium A-a O2 Difference Sodium Chloride Glucose Lactate FiO2 Crit Value Called To Crit Value Called By Crit Value Read Back Blood Gas Notified Time Potassium Carbon Dioxide Anion Gap BUN Creatinine Est GFR ( Amer) Est GFR (Non-Af Amer) POC Glucose (mg/dL) Random Glucose Calcium Total Bilirubin AST ALT Alkaline Phosphatase Troponin I NT-Pro-B Natriuret Pep Total Protein Albumin Globulin Albumin/Globulin Ratio Arterial Blood Potassium Urine Color Yellow Urine Clarity Cloudy Urine pH 5.0 Ur Specific [place] 1.014 Urine Protein 30 Urine Glucose (UA) Neg Urine Ketones Negative Urine Blood Moderate Urine Nitrate Negative Urine Bilirubin Negative Urine Urobilinogen 0.2-1.0 Ur Leukocyte Esterase Large Urine RBC (Auto) 17 H Urine WBC Clumps (Auto) Few H Urine Microscopic WBC 72 H Urine Bacteria Many H Blood Type Antibody Screen BBK History Checked Assessment & Plan - Assessment and Plan (Free Text) Assessment: REsp failure: hypoxia due to pulm edema CHF exacerbation Pulm edema Anemia Metabolic acidosis: due to lactic acidosis and CKD KENJI CKD-4 Lactic acidosis: due to anemia, CHF, hypoxia, unlikely to be due to infection DM Plan: Pt will be transferred to ICU Lasix 120 mg IV given in devided doses in ER Blood transfusion BiPAP : 29/04 NTG GGT Serial TNI and EKG Serial Lactic acid level Blood culture and urine culture , in ER Cefapime and vancomycin to be given in ER, will continue Cefepime Cardiac consult, Dr Reed Beta Brendon labs in AM
[2018-10-21] MEDS ORDERED: Midazolam 2 MG/2 ML VIAL IV ONE ×2 (19:48→20:14)
--- NOTE | 2018-10-21 21:06 | PCM.PROC ---
Procedures Attestation:: I certify that I have explained the specified Operation(s) or Procedure(s), risks, benefits and reasonable alternatives to the Patient and/or other person responsible. The opportunity was given to ask questions and all questions answered - Central Line Placement Right Internal Jugular Triple Lumen Catheter CVP Time Out Performed: Yes Pt. Placed on Pulse Ox Monitor: Yes Central Line Prep: Chlorhexidine-Alcohol Combination Local Anesthesia Used: Lidocaine 1% Ultrasound Used for Placement: Yes Central Line Lumen Inserted: triple Central Line Length: 16 cm Post Procedure: Sutured in Place Secured by: Suture Post procedure dressing: Chlorhexidine disc (Biopatch)
[2018-10-21] MEDS ORDERED: Vancomycin 1 g Inj IVPB STA (21:48)
--- NOTE | 2018-10-21 23:10 | CARD ---
APPROVED REPORT Date of service: 10/21/2018 EKG Measurement Heart [id number] <Conclusion> Sinus tachycardia Possible Left atrial enlargement Left ventricular hypertrophy with repolarization abnormality Abnormal ECG
[2018-10-22] MEDS ORDERED: Morphine 4 MG/ML VIAL IVP ONE (02:02)
[2018-10-22 04:11] LABS: BASO % 0.2 % (0.0-2.0); EOS % 0.1 % (0.0-4.0); LYMPH # 0.3 K/uL (1.0-4.3); LYMPH % 2.5 % (20.0-40.0); MEAN CELL VOLUME 86.7 fl (80.0-94.0); MEAN CORPUSCULAR HEMOGLOBIN 27.4 pg (27.0-31.0); MEAN CORPUSCULAR HGB CONC 31.6 g/dL (33.0-37.0); MEAN PLATELET VOLUME 7.3 fl (7.2-11.7); MONO # 0.8 K/uL (0.0-0.8); MONO % 7.3 % (0.0-10.0); NEUT # 10.2 K/uL (1.8-7.0); NEUT % 89.9 % (50.0-75.0); PLATELET COUNT 268 K/uL (130-400); RED CELL DISTRIBUTION WIDTH 18.5 % (11.5-14.5); WHITE BLOOD COUNT 11.4 K/uL (4.8-10.8)
[2018-10-22 04:14] LABS: ALB/GLOB RATIO 1.2 (1.0-2.1); ALBUMIN 3.2 g/dL (3.5-5.0); CALCIUM 8.9 mg/dL (8.4-10.2)
[2018-10-22 04:33] LABS: HEMOGLOBIN 5.7 g/dL (12.0-18.0)
[2018-10-22 05:38] LABS: LYMPHOCYTE 6 % (20-50); MONOCYTE 3 % (0-10); NEUTROPHIL 91 % (42-75); PLATELET ESTIMATE NORMAL (NORMAL); TOTAL CELLS COUNTED 100
[2018-10-22 05:39] LABS: ANISOCYTOSIS SLIGHT; HYPOCHROMIC SLIGHT; OVALOCYTES SLIGHT
--- NOTE | 2018-10-22 08:18 | CP.CCUPN ---
CCU Subjective - Physician Review Events Since Last Encounter (Free Text): 10/22/18 08:13 Pt has improved clinically, significantly overnight. His BiPAP was DCed last night and has been maintaining )2sat 100% on 3 LNC, looks comfortable , BP has been stable and has been on NSR, afebrile Labs from this morning are pending as pt is still finishing 2nd unit of blood transfusion. Last blood blood work was repeated 11 PM 10/21, 6 hours after the the first one, > Lactic acid has come dome from > 8 to 1.4, Hb dropped further form 6.4 to 5.7, Serum biarb was 9, improved to 17 and WBX improved from 17 K to 11 K, Pt has good urine output on lasix Rt IJ TLC was inserted by me , without any complication last niht. CXR from this AM showed improved pum congestion and its looks pulm congestion and not infiltrate, so he more likely to have pulm edema and not PNA Serum TNO has been rising. CCU Objective - Vital Signs / Intake & Output Vital Signs (Last 4 hours): Vital Signs Temp Pulse Resp BP Pulse Ox 10/22/18 07:00 81 12 107/58 L 100 10/22/18 06:27 98.6 F 83 14 114/60 10/22/18 06:10 98.6 F 83 14 114/60 10/22/18 06:00 86 13 121/54 L 100 10/22/18 05:46 98.8 F 88 17 113/69 10/22/18 05:25 98.8 F 88 17 113/69 10/22/18 05:06 99.1 F 91 H 15 120/61 10/22/18 05:00 91 H 15 120/61 100 Intake and Output (Last 8hrs): Intake & Output 10/21/18 10/22/18 10/22/18 22:59 06:59 14:59 Intake Total 325 325 Output Total 1800 Balance -1475 325 Weight 162 lb 168 lb 9.6 oz Intake: Blood Product 325 325 Red Blood Cells Cpd As1 0 325 Lr Unit [id number] Red Blood Cells Cpd As1 325 Lr Unit [id number] Output: Urine 1800 Urethral (Garza) 1800 - Physical Exam Narrative Physical Exam (Free Text): 10/22/18 08:18 P/E Neck: No jvd Lungs: Rt basal crackles Abdomen: Soft, non-tender Ext: No edema Heart: No gallop - Medications Active Medications: Active Medications Generic Name Dose Route Start Last Admin Trade Name Jp PRN Reason Stop Dose Admin Aspirin 325 mg 10/22/18 09:00 Aspirin PO DAILY [facility] Atorvastatin Calcium 40 mg 10/22/18 09:00 Lipitor PO DAILY [facility] Furosemide 40 mg 10/22/18 09:00 Lasix IVP BID ASHLEY Nitroglycerin/Dextrose 50 mg in 250 mls @ 1.5 mls/hr 10/21/18 16:17 10/21/18 16:25 Nitroglycerin 50 Mg/250 Ml D5w IV 10/22/18 16:16 5 mcg/min .Q24H ONE 1.5 mls/hr Administration Protocol 5 MCG/MIN Cefepime HCl 1 gm/ Sodium 100 mls @ 100 mls/hr 10/21/18 17:30 10/21/18 18:02 Chloride IVPB 100 mls/hr DAILY ASHLEY Administration Protocol Insulin Human Lispro 0 units 10/22/18 07:30 Humalog SC ACHS [facility] Protocol Metoprolol Tartrate 75 mg 10/21/18 21:00 10/21/18 21:26 Lopressor PO 75 mg Q12 ASHLEY Administration Sitagliptin Phosphate 25 mg 10/22/18 09:00 Januvia PO DAILY ASHLEY - Patient Studies Lab Studies: Lab Studies 10/22/18 10/22/18 10/22/18 Range/Units 05:13 03:40 03:40 WBC (4.8-10.8) K/uL RBC (4.40-5.90) Mil/uL Hgb (12.0-18.0) g/dL Hct (35.0-51.0) % MCV (80.0-94.0) fl MCH (27.0-31.0) pg MCHC (33.0-37.0) g/dL RDW (11.5-14.5) % Plt Count (130-400) K/uL MPV (7.2-11.7) fl Neut % (Auto) (50.0-75.0) % Lymph % (Auto) (20.0-40.0) % [place] % (Auto) (0.0-10.0) % Eos % (Auto) (0.0-4.0) % Baso % (Auto) (0.0-2.0) % Neut # (Auto) (1.8-7.0) K/uL Lymph # (Auto) (1.0-4.3) K/uL [place] # (Auto) (0.0-0.8) K/uL Eos # (Auto) (0.0-0.7) K/uL Baso # (Auto) (0.0-0.2) K/uL Neutrophils % (Manual) (42-75) % Lymphocytes % (Manual) (20-50) % Monocytes % (Manual) (0-10) % Platelet Estimate (NORMAL) Hypochromasia (manual) Anisocytosis (manual) Ovalocytes PT (9.8-13.1) Seconds INR APTT (25.6-37.1) Seconds D-Dimer, Quantitative (0-230) ng/mlDDU pCO2 (35-45) mm/Hg pO2 (80-100) mm/Hg HCO3 (21-28) mmol/L ABG pH (7.35-7.45) ABG Total CO2 (22-28) mmol/L ABG O2 Saturation (95-98) % ABG Base Excess (-2.0-3.0) mmol/L Rashawn Test ABG Potassium (3.6-5.2) mmol/L A-a O2 Difference mm/Hg Sodium (132-148) mmol/L Chloride (98-107) mmol/L Glucose (75-110) mg/dL Lactate (0.7-2.1) mmol/L FiO2 % Crit Value Called To Crit Value Called By Crit Value Read Back Blood Gas Notified Time Potassium (3.6-5.0) MMOL/L Carbon Dioxide (22-30) mmol/L Anion Gap (10-20) BUN (9-20) mg/dl Creatinine (0.8-1.5) mg/dl Est GFR ( Amer) Est GFR (Non-Af Amer) POC Glucose (mg/dL) 155 H (65-110) mg/dL Random Glucose (75-110) mg/dL Lactic Acid 1.4 (0.7-2.1) MMOL/L Calcium (8.4-10.2) mg/dL Magnesium 2.0 (1.6-2.3) MG/DL Total Bilirubin (0.2-1.3) mg/dl AST (17-59) U/L ALT (21-72) U/L Alkaline Phosphatase (38-126) U/L Troponin I (0.00-0.120) ng/mL NT-Pro-B Natriuret Pep (0-900) pg/ml Total Protein (6.3-8.2) G/DL Albumin (3.5-5.0) g/dL Globulin (2.2-3.9) gm/dL Albumin/Globulin Ratio (1.0-2.1) Arterial Blood Potassium (3.6-5.2) mmol/L Urine Color (YELLOW) Urine Clarity (Clear) Urine pH (5.0-8.0) Ur Specific [place] (1.003-1.030) Urine Protein (NEGATIVE) mg/dL Urine Glucose (UA) (NEGATIVE) mg/dL Urine Ketones (NEGATIVE) mg/dL Urine Blood (NEGATIVE) Urine Nitrate (NEGATIVE) Urine Bilirubin (NEGATIVE) Urine Urobilinogen (0.2-1.0) mg/dL Ur Leukocyte Esterase (Negative) Luna/uL Urine RBC (Auto) (0-3) /hpf Urine WBC Clumps (Auto) (NONE) /hpf Urine Microscopic WBC (0-5) /hpf Urine Bacteria (<OCC) Influenza Typ A,B (EIA) (NEGATIVE) Blood Type Antibody Screen Crossmatch IS Only BBK History Checked 10/22/18 10/21/18 10/21/18 Range/Units 00:40 23:59 23:59 WBC 11.4 H (4.8-10.8) K/uL RBC 2.10 L (4.40-5.90) Mil/uL Hgb 5.7 L* (12.0-18.0) g/dL Hct 18.2 L (35.0-51.0) % MCV 86.7 D (80.0-94.0) fl MCH 27.4 (27.0-31.0) pg MCHC 31.6 L (33.0-37.0) g/dL RDW 18.5 H (11.5-14.5) % Plt Count 268 D (130-400) K/uL MPV 7.3 (7.2-11.7) fl Neut % (Auto) 89.9 H (50.0-75.0) % Lymph % (Auto) 2.5 L (20.0-40.0) % [place] % (Auto) 7.3 (0.0-10.0) % Eos % (Auto) 0.1 (0.0-4.0) % Baso % (Auto) 0.2 (0.0-2.0) % Neut # (Auto) 10.2 H (1.8-7.0) K/uL Lymph # (Auto) 0.3 L (1.0-4.3) K/uL [place] # (Auto) 0.8 (0.0-0.8) K/uL Eos # (Auto) 0.0 (0.0-0.7) K/uL Baso # (Auto) 0.0 (0.0-0.2) K/uL Neutrophils % (Manual) 91 H (42-75) % Lymphocytes % (Manual) 6 L (20-50) % Monocytes % (Manual) 3 (0-10) % Platelet Estimate Normal (NORMAL) Hypochromasia (manual) Slight Anisocytosis (manual) Slight Ovalocytes Slight PT (9.8-13.1) Seconds INR APTT (25.6-37.1) Seconds D-Dimer, Quantitative (0-230) ng/mlDDU pCO2 (35-45) mm/Hg pO2 (80-100) mm/Hg HCO3 (21-28) mmol/L ABG pH (7.35-7.45) ABG Total CO2 (22-28) mmol/L ABG O2 Saturation (95-98) % ABG Base Excess (-2.0-3.0) mmol/L Rashawn Test ABG Potassium (3.6-5.2) mmol/L A-a O2 Difference mm/Hg Sodium 138 (132-148) mmol/L Chloride 111 H (98-107) mmol/L Glucose (75-110) mg/dL Lactate (0.7-2.1) mmol/L FiO2 % Crit Value Called To Crit Value Called By Crit Value Read Back Blood Gas Notified Time Potassium 5.3 H (3.6-5.0) MMOL/L Carbon Dioxide 17 L (22-30) mmol/L Anion Gap 15 (10-20) BUN 66 H (9-20) mg/dl Creatinine 4.3 H (0.8-1.5) mg/dl Est GFR ( Amer) 16 Est GFR (Non-Af Amer) 13 POC Glucose (mg/dL) (65-110) mg/dL Random Glucose 156 H (75-110) mg/dL Lactic Acid (0.7-2.1) MMOL/L Calcium 8.9 (8.4-10.2) mg/dL Magnesium (1.6-2.3) MG/DL Total Bilirubin 0.4 (0.2-1.3) mg/dl AST 109 H D (17-59) U/L ALT 32 (21-72) U/L Alkaline Phosphatase 80 (38-126) U/L Troponin I (0.00-0.120) ng/mL NT-Pro-B Natriuret Pep (0-900) pg/ml Total Protein 5.8 L (6.3-8.2) G/DL Albumin 3.2 L D (3.5-5.0) g/dL Globulin 2.6 (2.2-3.9) gm/dL Albumin/Globulin Ratio 1.2 (1.0-2.1) Arterial Blood Potassium (3.6-5.2) mmol/L Urine Color (YELLOW) Urine Clarity (Clear) Urine pH (5.0-8.0) Ur Specific [place] (1.003-1.030) Urine Protein (NEGATIVE) mg/dL Urine Glucose (UA) (NEGATIVE) mg/dL Urine Ketones (NEGATIVE) mg/dL Urine Blood (NEGATIVE) Urine Nitrate (NEGATIVE) Urine Bilirubin (NEGATIVE) Urine Urobilinogen (0.2-1.0) mg/dL Ur Leukocyte Esterase (Negative) Luna/uL Urine RBC (Auto) (0-3) /hpf Urine WBC Clumps (Auto) (NONE) /hpf Urine Microscopic WBC (0-5) /hpf Urine Bacteria (<OCC) Influenza Typ A,B (EIA) (NEGATIVE) Blood Type A POSITIVE Antibody Screen Negative Crossmatch IS Only See Detail BBK History Checked Patient has bt 10/21/18 10/21/18 10/21/18 Range/Units 23:59 23:59 16:16 WBC (4.8-10.8) K/uL RBC (4.40-5.90) Mil/uL Hgb (12.0-18.0) g/dL Hct (35.0-51.0) % MCV (80.0-94.0) fl MCH (27.0-31.0) pg MCHC (33.0-37.0) g/dL RDW (11.5-14.5) % Plt Count (130-400) K/uL MPV (7.2-11.7) fl Neut % (Auto) (50.0-75.0) % Lymph % (Auto) (20.0-40.0) % [place] % (Auto) (0.0-10.0) % Eos % (Auto) (0.0-4.0) % Baso % (Auto) (0.0-2.0) % Neut # (Auto) (1.8-7.0) K/uL Lymph # (Auto) (1.0-4.3) K/uL [place] # (Auto) (0.0-0.8) K/uL Eos # (Auto) (0.0-0.7) K/uL Baso # (Auto) (0.0-0.2) K/uL Neutrophils % (Manual) (42-75) % Lymphocytes % (Manual) (20-50) % Monocytes % (Manual) (0-10) % Platelet Estimate (NORMAL) Hypochromasia (manual) Anisocytosis (manual) Ovalocytes PT (9.8-13.1) Seconds INR APTT (25.6-37.1) Seconds D-Dimer, Quantitative (0-230) ng/mlDDU pCO2 (35-45) mm/Hg pO2 (80-100) mm/Hg HCO3 (21-28) mmol/L ABG pH (7.35-7.45) ABG Total CO2 (22-28) mmol/L ABG O2 Saturation (95-98) % ABG Base Excess (-2.0-3.0) mmol/L Rashawn Test ABG Potassium (3.6-5.2) mmol/L A-a O2 Difference mm/Hg Sodium (132-148) mmol/L Chloride (98-107) mmol/L Glucose (75-110) mg/dL Lactate (0.7-2.1) mmol/L FiO2 % Crit Value Called To Crit Value Called By Crit Value Read Back Blood Gas Notified Time Potassium (3.6-5.0) MMOL/L Carbon Dioxide (22-30) mmol/L Anion Gap (10-20) BUN (9-20) mg/dl Creatinine (0.8-1.5) mg/dl Est GFR ( Amer) Est GFR (Non-Af Amer) POC Glucose (mg/dL) (65-110) mg/dL Random Glucose (75-110) mg/dL Lactic Acid 1.4 (0.7-2.1) MMOL/L Calcium (8.4-10.2) mg/dL Magnesium (1.6-2.3) MG/DL Total Bilirubin (0.2-1.3) mg/dl AST (17-59) U/L ALT (21-72) U/L Alkaline Phosphatase (38-126) U/L Troponin I 18.8000 H* (0.00-0.120) ng/mL NT-Pro-B Natriuret Pep (0-900) pg/ml Total Protein (6.3-8.2) G/DL Albumin (3.5-5.0) g/dL Globulin (2.2-3.9) gm/dL Albumin/Globulin Ratio (1.0-2.1) Arterial Blood Potassium (3.6-5.2) mmol/L Urine Color Yellow (YELLOW) Urine Clarity Cloudy (Clear) Urine pH 5.0 (5.0-8.0) Ur Specific [place] 1.014 (1.003-1.030) Urine Protein 30 (NEGATIVE) mg/dL Urine Glucose (UA) Neg (NEGATIVE) mg/dL Urine Ketones Negative (NEGATIVE) mg/dL Urine Blood Moderate (NEGATIVE) Urine Nitrate Negative (NEGATIVE) Urine Bilirubin Negative (NEGATIVE) Urine Urobilinogen 0.2-1.0 (0.2-1.0) mg/dL Ur Leukocyte Esterase Large (Negative) Luna/uL Urine RBC (Auto) 17 H (0-3) /hpf Urine WBC Clumps (Auto) Few H (NONE) /hpf Urine Microscopic WBC 72 H (0-5) /hpf Urine Bacteria Many H (<OCC) Influenza Typ A,B (EIA) (NEGATIVE) Blood Type Antibody Screen Crossmatch IS Only BBK History Checked 10/21/18 10/21/18 10/21/18 Range/Units 16:16 16:16 16:16 WBC 16.9 H D (4.8-10.8) K/uL RBC 2.36 L (4.40-5.90) Mil/uL Hgb 6.2 L* D (12.0-18.0) g/dL Hct 21.4 L (35.0-51.0) % MCV 90.4 D (80.0-94.0) fl MCH 26.2 L (27.0-31.0) pg MCHC 28.9 L (33.0-37.0) g/dL RDW 20.2 H (11.5-14.5) % Plt Count 401 H D (130-400) K/uL MPV 7.7 (7.2-11.7) fl Neut % (Auto) 78.5 H (50.0-75.0) % Lymph % (Auto) 12.4 L (20.0-40.0) % [place] % (Auto) 8.5 (0.0-10.0) % Eos % (Auto) 0.1 (0.0-4.0) % Baso % (Auto) 0.5 (0.0-2.0) % Neut # (Auto) 13.3 H (1.8-7.0) K/uL Lymph # (Auto) 2.1 (1.0-4.3) K/uL [place] # (Auto) 1.4 H (0.0-0.8) K/uL Eos # (Auto) 0.0 (0.0-0.7) K/uL Baso # (Auto) 0.1 (0.0-0.2) K/uL Neutrophils % (Manual) (42-75) % Lymphocytes % (Manual) (20-50) % Monocytes % (Manual) (0-10) % Platelet Estimate (NORMAL) Hypochromasia (manual) Anisocytosis (manual) Ovalocytes PT 11.5 (9.8-13.1) Seconds INR 1.0 APTT 23.5 L (25.6-37.1) Seconds D-Dimer, Quantitative 2433 H (0-230) ng/mlDDU pCO2 (35-45) mm/Hg pO2 (80-100) mm/Hg HCO3 (21-28) mmol/L ABG pH (7.35-7.45) ABG Total CO2 (22-28) mmol/L ABG O2 Saturation (95-98) % ABG Base Excess (-2.0-3.0) mmol/L Rashawn Test ABG Potassium (3.6-5.2) mmol/L A-a O2 Difference mm/Hg Sodium (132-148) mmol/L Chloride (98-107) mmol/L Glucose (75-110) mg/dL Lactate (0.7-2.1) mmol/L FiO2 % Crit Value Called To Crit Value Called By Crit Value Read Back Blood Gas Notified Time Potassium (3.6-5.0) MMOL/L Carbon Dioxide (22-30) mmol/L Anion Gap (10-20) BUN (9-20) mg/dl Creatinine (0.8-1.5) mg/dl Est GFR ( Amer) Est GFR (Non-Af Amer) POC Glucose (mg/dL) (65-110) mg/dL Random Glucose (75-110) mg/dL Lactic Acid (0.7-2.1) MMOL/L Calcium (8.4-10.2) mg/dL Magnesium (1.6-2.3) MG/DL Total Bilirubin (0.2-1.3) mg/dl AST (17-59) U/L ALT (21-72) U/L Alkaline Phosphatase (38-126) U/L Troponin I (0.00-0.120) ng/mL NT-Pro-B Natriuret Pep (0-900) pg/ml Total Protein (6.3-8.2) G/DL Albumin (3.5-5.0) g/dL Globulin (2.2-3.9) gm/dL Albumin/Globulin Ratio (1.0-2.1) Arterial Blood Potassium (3.6-5.2) mmol/L Urine Color (YELLOW) Urine Clarity (Clear) Urine pH (5.0-8.0) Ur Specific [place] (1.003-1.030) Urine Protein (NEGATIVE) mg/dL Urine Glucose (UA) (NEGATIVE) mg/dL Urine Ketones (NEGATIVE) mg/dL Urine Blood (NEGATIVE) Urine Nitrate (NEGATIVE) Urine Bilirubin (NEGATIVE) Urine Urobilinogen (0.2-1.0) mg/dL Ur Leukocyte Esterase (Negative) Luna/uL Urine RBC (Auto) (0-3) /hpf Urine WBC Clumps (Auto) (NONE) /hpf Urine Microscopic WBC (0-5) /hpf Urine Bacteria (<OCC) Influenza Typ A,B (EIA) (NEGATIVE) Blood Type A POSITIVE Antibody Screen Negative Crossmatch IS Only BBK History Checked Patient has bt 10/21/18 10/21/18 10/21/18 Range/Units 16:16 16:15 16:05 WBC (4.8-10.8) K/uL RBC (4.40-5.90) Mil/uL Hgb (12.0-18.0) g/dL Hct (35.0-51.0) % MCV (80.0-94.0) fl MCH (27.0-31.0) pg MCHC (33.0-37.0) g/dL RDW (11.5-14.5) % Plt Count (130-400) K/uL MPV (7.2-11.7) fl Neut % (Auto) (50.0-75.0) % Lymph % (Auto) (20.0-40.0) % [place] % (Auto) (0.0-10.0) % Eos % (Auto) (0.0-4.0) % Baso % (Auto) (0.0-2.0) % Neut # (Auto) (1.8-7.0) K/uL Lymph # (Auto) (1.0-4.3) K/uL [place] # (Auto) (0.0-0.8) K/uL Eos # (Auto) (0.0-0.7) K/uL Baso # (Auto) (0.0-0.2) K/uL Neutrophils % (Manual) (42-75) % Lymphocytes % (Manual) (20-50) % Monocytes % (Manual) (0-10) % Platelet Estimate (NORMAL) Hypochromasia (manual) Anisocytosis (manual) Ovalocytes PT (9.8-13.1) Seconds INR APTT (25.6-37.1) Seconds D-Dimer, Quantitative (0-230) ng/mlDDU pCO2 35 (35-45) mm/Hg pO2 134 H (80-100) mm/Hg HCO3 9.4 L* (21-28) mmol/L ABG pH 7.05 L* (7.35-7.45) ABG Total CO2 10.8 L (22-28) mmol/L ABG O2 Saturation 99.5 H (95-98) % ABG Base Excess -19.9 L (-2.0-3.0) mmol/L Rashawn Test Yes ABG Potassium 5.6 H (3.6-5.2) mmol/L A-a O2 Difference 535.0 mm/Hg Sodium 136 134.0 (132-148) mmol/L Chloride 109 H 106.0 (98-107) mmol/L Glucose 315 H (75-110) mg/dL Lactate 8.1 H* (0.7-2.1) mmol/L FiO2 100.0 % Crit Value Called To Dr antonieta barba Crit Value Called By Maryjane juarez rt Crit Value Read Back Y Blood Gas Notified Time 1623 Potassium 5.7 H (3.6-5.0) MMOL/L Carbon Dioxide 8 L* D (22-30) mmol/L Anion Gap 25 H (10-20) BUN 61 H (9-20) mg/dl Creatinine 4.0 H (0.8-1.5) mg/dl Est GFR ( Amer) 17 Est GFR (Non-Af Amer) 14 POC Glucose (mg/dL) 237 H (65-110) mg/dL Random Glucose 292 H (75-110) mg/dL Lactic Acid (0.7-2.1) MMOL/L Calcium 9.9 (8.4-10.2) mg/dL Magnesium (1.6-2.3) MG/DL Total Bilirubin 0.3 (0.2-1.3) mg/dl AST 55 (17-59) U/L ALT 27 (21-72) U/L Alkaline Phosphatase 107 (38-126) U/L Troponin I 7.6800 H* (0.00-0.120) ng/mL NT-Pro-B Natriuret Pep 8850 H (0-900) pg/ml Total Protein 7.1 (6.3-8.2) G/DL Albumin 4.2 (3.5-5.0) g/dL Globulin 2.9 (2.2-3.9) gm/dL Albumin/Globulin Ratio 1.4 (1.0-2.1) Arterial Blood Potassium 5.6 H (3.6-5.2) mmol/L Urine Color (YELLOW) Urine Clarity (Clear) Urine pH (5.0-8.0) Ur Specific [place] (1.003-1.030) Urine Protein (NEGATIVE) mg/dL Urine Glucose (UA) (NEGATIVE) mg/dL Urine Ketones (NEGATIVE) mg/dL Urine Blood (NEGATIVE) Urine Nitrate (NEGATIVE) Urine Bilirubin (NEGATIVE) Urine Urobilinogen (0.2-1.0) mg/dL Ur Leukocyte Esterase (Negative) Luna/uL Urine RBC (Auto) (0-3) /hpf Urine WBC Clumps (Auto) (NONE) /hpf Urine Microscopic WBC (0-5) /hpf Urine Bacteria (<OCC) Influenza Typ A,B (EIA) (NEGATIVE) Blood Type Antibody Screen Crossmatch IS Only BBK History Checked 10/21/18 Range/Units 01:05 WBC (4.8-10.8) K/uL RBC (4.40-5.90) Mil/uL Hgb (12.0-18.0) g/dL Hct (35.0-51.0) % MCV (80.0-94.0) fl MCH (27.0-31.0) pg MCHC (33.0-37.0) g/dL RDW (11.5-14.5) % Plt Count (130-400) K/uL MPV (7.2-11.7) fl Neut % (Auto) (50.0-75.0) % Lymph % (Auto) (20.0-40.0) % [place] % (Auto) (0.0-10.0) % Eos % (Auto) (0.0-4.0) % Baso % (Auto) (0.0-2.0) % Neut # (Auto) (1.8-7.0) K/uL Lymph # (Auto) (1.0-4.3) K/uL [place] # (Auto) (0.0-0.8) K/uL Eos # (Auto) (0.0-0.7) K/uL Baso # (Auto) (0.0-0.2) K/uL Neutrophils % (Manual) (42-75) % Lymphocytes % (Manual) (20-50) % Monocytes % (Manual) (0-10) % Platelet Estimate (NORMAL) Hypochromasia (manual) Anisocytosis (manual) Ovalocytes PT (9.8-13.1) Seconds INR APTT (25.6-37.1) Seconds D-Dimer, Quantitative (0-230) ng/mlDDU pCO2 (35-45) mm/Hg pO2 (80-100) mm/Hg HCO3 (21-28) mmol/L ABG pH (7.35-7.45) ABG Total CO2 (22-28) mmol/L ABG O2 Saturation (95-98) % ABG Base Excess (-2.0-3.0) mmol/L Rashawn Test ABG Potassium (3.6-5.2) mmol/L A-a O2 Difference mm/Hg Sodium (132-148) mmol/L Chloride (98-107) mmol/L Glucose (75-110) mg/dL Lactate (0.7-2.1) mmol/L FiO2 % Crit Value Called To Crit Value Called By Crit Value Read Back Blood Gas Notified Time Potassium (3.6-5.0) MMOL/L Carbon Dioxide (22-30) mmol/L Anion Gap (10-20) BUN (9-20) mg/dl Creatinine (0.8-1.5) mg/dl Est GFR ( Amer) Est GFR (Non-Af Amer) POC Glucose (mg/dL) (65-110) mg/dL Random Glucose (75-110) mg/dL Lactic Acid (0.7-2.1) MMOL/L Calcium (8.4-10.2) mg/dL Magnesium (1.6-2.3) MG/DL Total Bilirubin (0.2-1.3) mg/dl AST (17-59) U/L ALT (21-72) U/L Alkaline Phosphatase (38-126) U/L Troponin I (0.00-0.120) ng/mL NT-Pro-B Natriuret Pep (0-900) pg/ml Total Protein (6.3-8.2) G/DL Albumin (3.5-5.0) g/dL Globulin (2.2-3.9) gm/dL Albumin/Globulin Ratio (1.0-2.1) Arterial Blood Potassium (3.6-5.2) mmol/L Urine Color (YELLOW) Urine Clarity (Clear) Urine pH (5.0-8.0) Ur Specific [place] (1.003-1.030) Urine Protein (NEGATIVE) mg/dL Urine Glucose (UA) (NEGATIVE) mg/dL Urine Ketones (NEGATIVE) mg/dL Urine Blood (NEGATIVE) Urine Nitrate (NEGATIVE) Urine Bilirubin (NEGATIVE) Urine Urobilinogen (0.2-1.0) mg/dL Ur Leukocyte Esterase (Negative) Luna/uL Urine RBC (Auto) (0-3) /hpf Urine WBC Clumps (Auto) (NONE) /hpf Urine Microscopic WBC (0-5) /hpf Urine Bacteria (<OCC) Influenza Typ A,B (EIA) Negative for flu a/b (NEGATIVE) Blood Type Antibody Screen Crossmatch IS Only BBK History Checked Laboratory Results - last 24 hr 10/21/18 10/21/18 10/21/18 01:05 16:05 16:15 WBC RBC Hgb Hct MCV MCH MCHC RDW Plt Count MPV Neut % (Auto) Lymph % (Auto) [place] % (Auto) Eos % (Auto) Baso % (Auto) Neut # (Auto) Lymph # (Auto) [place] # (Auto) Eos # (Auto) Baso # (Auto) Neutrophils % (Manual) Lymphocytes % (Manual) Monocytes % (Manual) Platelet Estimate Hypochromasia (manual) Anisocytosis (manual) Ovalocytes PT INR APTT D-Dimer, Quantitative pCO2 35 pO2 134 H HCO3 9.4 L* ABG pH 7.05 L* ABG Total CO2 10.8 L ABG O2 Saturation 99.5 H ABG Base Excess -19.9 L Rashawn Test Yes ABG Potassium 5.6 H A-a O2 Difference 535.0 Sodium 134.0 Chloride 106.0 Glucose 315 H Lactate 8.1 H* FiO2 100.0 Crit Value Called To Dr antonieta barba Crit Value Called By Maryjane juarez rt Crit Value Read Back Y Blood Gas Notified Time 1623 Potassium Carbon Dioxide Anion Gap BUN Creatinine Est GFR ( Amer) Est GFR (Non-Af Amer) POC Glucose (mg/dL) 237 H Random Glucose Lactic Acid Calcium Magnesium Total Bilirubin AST ALT Alkaline Phosphatase Troponin I NT-Pro-B Natriuret Pep Total Protein Albumin Globulin Albumin/Globulin Ratio Arterial Blood Potassium 5.6 H Urine Color Urine Clarity Urine pH Ur Specific [place] Urine Protein Urine Glucose (UA) Urine Ketones Urine Blood Urine Nitrate Urine Bilirubin Urine Urobilinogen Ur Leukocyte Esterase Urine RBC (Auto) Urine WBC Clumps (Auto) Urine Microscopic WBC Urine Bacteria Influenza Typ A,B (EIA) Negative for flu a/b Blood Type Antibody Screen Crossmatch IS Only BBK History Checked 10/21/18 10/21/18 10/21/18 16:16 16:16 16:16 WBC 16.9 H D RBC 2.36 L Hgb 6.2 L* D Hct 21.4 L MCV 90.4 D MCH 26.2 L MCHC 28.9 L RDW 20.2 H Plt Count 401 H D MPV 7.7 Neut % (Auto) 78.5 H Lymph % (Auto) 12.4 L [place] % (Auto) 8.5 Eos % (Auto) 0.1 Baso % (Auto) 0.5 Neut # (Auto) 13.3 H Lymph # (Auto) 2.1 [place] # (Auto) 1.4 H Eos # (Auto) 0.0 Baso # (Auto) 0.1 Neutrophils % (Manual) Lymphocytes % (Manual) Monocytes % (Manual) Platelet Estimate Hypochromasia (manual) Anisocytosis (manual) Ovalocytes PT 11.5 INR 1.0 APTT 23.5 L D-Dimer, Quantitative 2433 H pCO2 pO2 HCO3 ABG pH ABG Total CO2 ABG O2 Saturation ABG Base Excess Rashawn Test ABG Potassium A-a O2 Difference Sodium 136 Chloride 109 H Glucose Lactate FiO2 Crit Value Called To Crit Value Called By Crit Value Read Back Blood Gas Notified Time Potassium 5.7 H Carbon Dioxide 8 L* D Anion Gap 25 H BUN 61 H Creatinine 4.0 H Est GFR ( Amer) 17 Est GFR (Non-Af Amer) 14 POC Glucose (mg/dL) Random Glucose 292 H Lactic Acid Calcium 9.9 Magnesium Total Bilirubin 0.3 AST 55 ALT 27 Alkaline Phosphatase 107 Troponin I 7.6800 H* NT-Pro-B Natriuret Pep 8850 H Total Protein 7.1 Albumin 4.2 Globulin 2.9 Albumin/Globulin Ratio 1.4 Arterial Blood Potassium Urine Color Urine Clarity Urine pH Ur Specific [place] Urine Protein Urine Glucose (UA) Urine Ketones Urine Blood Urine Nitrate Urine Bilirubin Urine Urobilinogen Ur Leukocyte Esterase Urine RBC (Auto) Urine WBC Clumps (Auto) Urine Microscopic WBC Urine Bacteria Influenza Typ A,B (EIA) Blood Type Antibody Screen Crossmatch IS Only BBK History Checked 10/21/18 10/21/18 10/21/18 16:16 16:16 23:59 WBC RBC Hgb Hct MCV MCH MCHC RDW Plt Count MPV Neut % (Auto) Lymph % (Auto) [place] % (Auto) Eos % (Auto) Baso % (Auto) Neut # (Auto) Lymph # (Auto) [place] # (Auto) Eos # (Auto) Baso # (Auto) Neutrophils % (Manual) Lymphocytes % (Manual) Monocytes % (Manual) Platelet Estimate Hypochromasia (manual) Anisocytosis (manual) Ovalocytes PT INR APTT D-Dimer, Quantitative pCO2 pO2 HCO3 ABG pH ABG Total CO2 ABG O2 Saturation ABG Base Excess Rashawn Test ABG Potassium A-a O2 Difference Sodium Chloride Glucose Lactate FiO2 Crit Value Called To Crit Value Called By Crit Value Read Back Blood Gas Notified Time Potassium Carbon Dioxide Anion Gap BUN Creatinine Est GFR ( Amer) Est GFR (Non-Af Amer) POC Glucose (mg/dL) Random Glucose Lactic Acid 1.4 Calcium Magnesium Total Bilirubin AST ALT Alkaline Phosphatase Troponin I NT-Pro-B Natriuret Pep Total Protein Albumin Globulin Albumin/Globulin Ratio Arterial Blood Potassium Urine Color Yellow Urine Clarity Cloudy Urine pH 5.0 Ur Specific [place] 1.014 Urine Protein 30 Urine Glucose (UA) Neg Urine Ketones Negative Urine Blood Moderate Urine Nitrate Negative Urine Bilirubin Negative Urine Urobilinogen 0.2-1.0 Ur Leukocyte Esterase Large Urine RBC (Auto) 17 H Urine WBC Clumps (Auto) Few H Urine Microscopic WBC 72 H Urine Bacteria Many H Influenza Typ A,B (EIA) Blood Type A POSITIVE Antibody Screen Negative Crossmatch IS Only BBK History Checked Patient has bt 10/21/18 10/21/18 10/21/18 23:59 23:59 23:59 WBC 11.4 H RBC 2.10 L Hgb 5.7 L* Hct 18.2 L MCV 86.7 D MCH 27.4 MCHC 31.6 L RDW 18.5 H Plt Count 268 D MPV 7.3 Neut % (Auto) 89.9 H Lymph % (Auto) 2.5 L [place] % (Auto) 7.3 Eos % (Auto) 0.1 Baso % (Auto) 0.2 Neut # (Auto) 10.2 H Lymph # (Auto) 0.3 L [place] # (Auto) 0.8 Eos # (Auto) 0.0 Baso # (Auto) 0.0 Neutrophils % (Manual) 91 H Lymphocytes % (Manual) 6 L Monocytes % (Manual) 3 Platelet Estimate Normal Hypochromasia (manual) Slight Anisocytosis (manual) Slight Ovalocytes Slight PT INR APTT D-Dimer, Quantitative pCO2 pO2 HCO3 ABG pH ABG Total CO2 ABG O2 Saturation ABG Base Excess Rashawn Test ABG Potassium A-a O2 Difference Sodium 138 Chloride 111 H Glucose Lactate FiO2 Crit Value Called To Crit Value Called By Crit Value Read Back Blood Gas Notified Time Potassium 5.3 H Carbon Dioxide 17 L Anion Gap 15 BUN 66 H Creatinine 4.3 H Est GFR ( Amer) 16 Est GFR (Non-Af Amer) 13 POC Glucose (mg/dL) Random Glucose 156 H Lactic Acid Calcium 8.9 Magnesium Total Bilirubin 0.4 AST 109 H D ALT 32 Alkaline Phosphatase 80 Troponin I 18.8000 H* NT-Pro-B Natriuret Pep Total Protein 5.8 L Albumin 3.2 L D Globulin 2.6 Albumin/Globulin Ratio 1.2 Arterial Blood Potassium Urine Color Urine Clarity Urine pH Ur Specific [place] Urine Protein Urine Glucose (UA) Urine Ketones Urine Blood Urine Nitrate Urine Bilirubin Urine Urobilinogen Ur Leukocyte Esterase Urine RBC (Auto) Urine WBC Clumps (Auto) Urine Microscopic WBC Urine Bacteria Influenza Typ A,B (EIA) Blood Type Antibody Screen Crossmatch IS Only BBK History Checked 10/22/18 10/22/18 10/22/18 00:40 03:40 03:40 WBC RBC Hgb Hct MCV MCH MCHC RDW Plt Count MPV Neut % (Auto) Lymph % (Auto) [place] % (Auto) Eos % (Auto) Baso % (Auto) Neut # (Auto) Lymph # (Auto) [place] # (Auto) Eos # (Auto) Baso # (Auto) Neutrophils % (Manual) Lymphocytes % (Manual) Monocytes % (Manual) Platelet Estimate Hypochromasia (manual) Anisocytosis (manual) Ovalocytes PT INR APTT D-Dimer, Quantitative pCO2 pO2 HCO3 ABG pH ABG Total CO2 ABG O2 Saturation ABG Base Excess Rashawn Test ABG Potassium A-a O2 Difference Sodium Chloride Glucose Lactate FiO2 Crit Value Called To Crit Value Called By Crit Value Read Back Blood Gas Notified Time Potassium Carbon Dioxide Anion Gap BUN Creatinine Est GFR ( Amer) Est GFR (Non-Af Amer) POC Glucose (mg/dL) Random Glucose Lactic Acid 1.4 Calcium Magnesium 2.0 Total Bilirubin AST ALT Alkaline Phosphatase Troponin I NT-Pro-B Natriuret Pep Total Protein Albumin Globulin Albumin/Globulin Ratio Arterial Blood Potassium Urine Color Urine Clarity Urine pH Ur Specific [place] Urine Protein Urine Glucose (UA) Urine Ketones Urine Blood Urine Nitrate Urine Bilirubin Urine Urobilinogen Ur Leukocyte Esterase Urine RBC (Auto) Urine WBC Clumps (Auto) Urine Microscopic WBC Urine Bacteria Influenza Typ A,B (EIA) Blood Type A POSITIVE Antibody Screen Negative Crossmatch IS Only See Detail BBK History Checked Patient has bt 10/22/18 05:13 WBC RBC Hgb Hct MCV MCH MCHC RDW Plt Count MPV Neut % (Auto) Lymph % (Auto) [place] % (Auto) Eos % (Auto) Baso % (Auto) Neut # (Auto) Lymph # (Auto) [place] # (Auto) Eos # (Auto) Baso # (Auto) Neutrophils % (Manual) Lymphocytes % (Manual) Monocytes % (Manual) Platelet Estimate Hypochromasia (manual) Anisocytosis (manual) Ovalocytes PT INR APTT D-Dimer, Quantitative pCO2 pO2 HCO3 ABG pH ABG Total CO2 ABG O2 Saturation ABG Base Excess Rashawn Test ABG Potassium A-a O2 Difference Sodium Chloride Glucose Lactate FiO2 Crit Value Called To Crit Value Called By Crit Value Read Back Blood Gas Notified Time Potassium Carbon Dioxide Anion Gap BUN Creatinine Est GFR ( Amer) Est GFR (Non-Af Amer) POC Glucose (mg/dL) 155 H Random Glucose Lactic Acid Calcium Magnesium Total Bilirubin AST ALT Alkaline Phosphatase Troponin I NT-Pro-B Natriuret Pep Total Protein Albumin Globulin Albumin/Globulin Ratio Arterial Blood Potassium Urine Color Urine Clarity Urine pH Ur Specific [place] Urine Protein Urine Glucose (UA) Urine Ketones Urine Blood Urine Nitrate Urine Bilirubin Urine Urobilinogen Ur Leukocyte Esterase Urine RBC (Auto) Urine WBC Clumps (Auto) Urine Microscopic WBC Urine Bacteria Influenza Typ A,B (EIA) Blood Type Antibody Screen Crossmatch IS Only BBK History Checked EKG/Cardiology Studies: Cardiology / EKG Studies 10/21/18 16:13 EKG [ELECTROCARDIOGRAM] Stat Comment: Mode Of Transportation: Reason For Exam: chest pain Fingerstick Blood Sugar Results: 132 Critical Care Progress Note - Nutrition Nutrition: Nutrition Category Date Time Status Heart Healthy Diet [DIET] Diets 10/21/18 Breakfast Active Assessment/Plan - Assessment and Plan (Free Text) Assessment: NSTEMI Pulm edema Anemia: CKD, r/o GIB, r/o bone marrow suppression Pulm edema Sepsis Acute kidney Injury CKD-4 DM HTN Severe aortic stenosis Sever metabolic acidosis : due to lactic acidosis, due to hypoxia, aemia , KENJI/CKD and probably sepsis Plan: Blood transfusion : 2 units On cefepime, was given vancomycin also, Blood culture and urine culture Heam and GI consult Cardiology following Beta Blockers Hold heparin for DVT proph, due to worsening anemia Lasix 40 mg IV q 12 h Pro-Calitonin : pending
[2018-10-22] MEDS: Insulin Lispro (humaLOG) 100 Units/ml Inj SC SCH ×4 (08:55→21:36)
[2018-10-22 09:06] LABS: ALB/GLOB RATIO 1.2 (1.0-2.1); ALBUMIN 3.3 g/dL (3.5-5.0); CALCIUM 9.1 mg/dL (8.4-10.2)
[2018-10-22 09:14] LABS: BASO % 0.2 % (0.0-2.0); EOS % 0.3 % (0.0-4.0); HEMOGLOBIN 7.6 g/dL (12.0-18.0); LYMPH # 0.5 K/uL (1.0-4.3); LYMPH % 4.3 % (20.0-40.0); MEAN CORPUSCULAR HGB CONC 32.2 g/dL (33.0-37.0); MEAN PLATELET VOLUME 7.4 fl (7.2-11.7); MONO # 1.1 K/uL (0.0-0.8); MONO % 9.5 % (0.0-10.0); NEUT % 85.7 % (50.0-75.0); NRBC % 0.1 % (0.0-0.0); RBC 2.72 Mil/uL (4.40-5.90); RED CELL DISTRIBUTION WIDTH 16.8 % (11.5-14.5); WHITE BLOOD COUNT 11.7 K/uL (4.8-10.8)
--- NOTE | 2018-10-22 10:43 | RAD ---
Date of service: 10/21/2018 HISTORY: possible admission COMPARISON: 09/08/2018 FINDINGS: LUNGS: Diffuse bilateral interstitial infiltrates. PLEURA: No significant pleural effusion identified, no pneumothorax apparent. CARDIOVASCULAR: No aortic atherosclerotic calcification present. Normal cardiac size. No pulmonary vascular congestion. OSSEOUS STRUCTURES: No significant abnormalities. VISUALIZED UPPER ABDOMEN: Normal. OTHER FINDINGS: None. IMPRESSION: Diffuse bilateral interstitial infiltrates.
--- NOTE | 2018-10-22 10:57 | RAD ---
Date of service: 10/21/2018 PROCEDURE: CHEST RADIOGRAPH, 1 VIEW HISTORY: Rt IJ TLC inserted, r/p Pneumo COMPARISON: None available. FINDINGS: LUNGS: Mild left perihilar interstitial changes. Right triple-lumen catheter tip overlying the RA/SVC junction. PLEURA: No pneumothorax or pleural fluid seen. CARDIOVASCULAR: No aortic atherosclerotic calcification present. Normal. OSSEOUS STRUCTURES: No significant abnormalities. VISUALIZED UPPER ABDOMEN: Normal. OTHER FINDINGS: None. IMPRESSION: Mild left perihilar interstitial changes. Right triple-lumen catheter tip overlying the RA/SVC junction.
[2018-10-22 11:29] LABS: IRON 66 ug/dL (49-181)
[2018-10-22 11:38] LABS: % IRON SATURATION 19 % (20-55); TOTAL IRON BINDING CAPACITY 339 ug/dL (250-450)
[2018-10-22] MEDS: Cefepime 1 GM in Sodium Chloride 0.9% 100 ML IVPB SCH (12:41)
--- NOTE | 2018-10-22 12:47 | CP.PCM.CON ---
History of Present Illness - History of Present Illness History of Present Illness: I was asked to evaluate patient by Dr Stockton. Patient seen 10/22/18 1220 Patient is a 83 year old amle with HTN, hypercholesterolemia , chronic renal insufficiency, and anekia who presents with chest pain and dyspnea. The patient has noted symptoms for the past few days. He was noted to have pumonary edmea on presentation andrequired Bipap. He was also found to have a Hgb 6.6 and lactix acidosis. He has urosepsis. He is now s/p transfusion of PRBCs. He received lasix. he feels better. Review of Systems - Constitutional Constitutional: absent: As Per HPI, Anorexia, Chills, Daytime Sleepiness, Excessive Sweating, Fatigue, Fever, Frequent Falls, Headache, Increased Appetite, Lethargy, Malaise, Night Sweats, Snoring, Sleep Apnea, Weight Gain, Weight Loss, Weakness, Other - EENT Eyes: absent: As Per HPI, Blind Spots, Blurred Vision, Change in Vision, Decreased Night Vision, Diplopia, Discharge, Dry Eye, Exophthalmos, Floaters, Irritation, Itchy Eyes, Loss of Peripheral Vision, Pain, Photophobia, Requires Corrective Lenses, Sees Flashes, Spots in Vision, Tunnel Vision, Other Visual Disturbances, Loss of Vision, Other Ears: absent: As Per HPI, Decreased Hearing, Ear Discharge, Ear Pain, Tinnitus, Abnormal Hearing, Disequilibrium, Dizziness, Other Nose/Mouth/Throat: absent: As Per HPI, Epistaxis, Nasal Congestion, Nasal Discharge, Nasal Obstruction, Nasal Trauma, Nose Pain, Post Nasal Drip, Sinus Pain, Sinus Pressure, Bleeding Gums, Change in Voice, Dental Pain, Dry Mouth, Dysphagia, Halitosis, Hoarsness, Lip Swelling, Mouth Lesions, Mouth Pain, Odynophagia, Sore Throat, Throat Swelling, Tongue Swelling, Facial Pain, Neck Pain, Neck Mass, Other - Cardiovascular Cardiovascular: Chest Pain, Dyspnea - Respiratory Respiratory: Dyspnea - Gastrointestinal Gastrointestinal: absent: As Per HPI, Abdominal Pain, Belching, Bloating, Change in Bowel Habits, Change in Stool Character, Coffee Ground Emesis, Constipation, Cramping, Diarrhea, Dyspepsia, Dysphagia, Early Satiety, Excessive Flatus, Fecal Incontinence, Heartburn, Hematemesis, Hematochezia, Loose Stools, Melena, Nausea, Odynophagia, Temesmus, Vomiting, Other - Genitourinary Genitourinary: absent: As Per HPI, Change in Urinary Stream, Difficulty Urinating, Dysuria, Flank Pain, Hematuria, Pyuria, Nocturia, Urinary Incontinence, Urinary Frequency, Urinary Hesitance, Urinary Urgency, Voiding Freq/Small Amts, Freq UTI, Hx Renal/Bladder Calculi, Hx /Renal Surgery, Bladder Distension, Other - Musculoskeletal Musculoskeletal: absent: As Per HPI, Abnormal Gait, Arthralgias, Atrophy, Back Pain, Deformity, Joint Swelling, Limited Range of Motion, Loss of Height, Muscle Cramps, Muscle Weakness, Myalgias, Neck Pain, Numbness, Radiating Pain into Limb, Stiffness, Tingling, Other - Integumentary Integumentary: absent: As Per HPI, Acne, Alopecia, Bleeding Lesions, Change in Hair, Change in Nails, Change in Pigmentation, Changing Lesions, Dry Skin, Erythema, Furuncle, Hirsutism, Lesions, New Lesions, Non-Healing Lesions, Photosensitivity, Pruritus, Rash, Skin Pain, Skin Ulcer, Sores, Striae, Swelling, Unusual Bruising, Wounds, Jaundice, Other - Neurological Neurological: absent: As Per HPI, Abnormal Gait, Abnormal Hearing, Abnormal Movements, Abnormal Speech, Behavioral Changes, Burning Sensations, Confusion, Convulsions, Disequilibrium, Dizziness, Numbness, Focal Weakness, Frequent Falls, Headaches, Lack of Coordination, Loss of Vision, Memory Loss, Paresthesias, Radicular Pain, Restless Legs, Sensory Deficit, Syncope, Tingling, Tremor, Vertigo, Weakness, Other Visual Disturbances, Other - Psychiatric Psychiatric: absent: As Per HPI, Abnormal Sleep Pattern, Anhedonia, Anxiety, Auditory Hallucinations, Behavioral Changes, Change in Appetite, Change in Libido, Confusion, Depression, Difficulty Concentrating, Hallucinations, Homicidal Ideation, Hopelessness, Irritability, Memory Loss, Mood Swings, Panic Attacks, Paranoia, Suicidal Ideation, Visual Hallucinations, Tactile Hallucinations, Other - Endocrine Endocrine: absent: As Per HPI, Change in Body Appearance, Change in Libido, Cold Intolorance, Deepening of Voice, Excessive Sweating, Fatigue, Flushing, Heat Intolorance, Increase in Ring/Shoe/Hat Size, Palpitations, Polydipsia, Polyphagia, Polyuria, Other - Hematologic/Lymphatic Hematologic: absent: As Per HPI, Easy Bleeding, Easy Bruising, Lymphadenopathy, Other Past Patient History - Past Medical History & Family History Past Medical History?: Yes - Past Social History Smoking Status: Never Smoked - CARDIAC Hx Cardiac Disorders: Yes - PULMONARY Hx Chronic Obstructive Pulmonary Disease (COPD): Yes - NEUROLOGICAL Hx Neurological Disorder: Yes - HEENT Hx HEENT Problems: Yes - RENAL Hx Chronic Kidney Disease: Yes - ENDOCRINE/METABOLIC Hx Endocrine Disorders: Yes - HEMATOLOGICAL/ONCOLOGICAL Hx Anemia: Yes - INTEGUMENTARY Hx Dermatological Problems: No - MUSCULOSKELETAL/RHEUMATOLOGICAL Hx Musculoskeletal Disorders: Yes Hx Falls: No - GASTROINTESTINAL Hx Gastritis: Yes Hx Pancreatitis: Yes - GENITOURINARY/GYNECOLOGICAL Hx Genitourinary Disorders: Yes - PSYCHIATRIC Hx Psychophysiologic Disorder: No Hx Substance Use: No - SURGICAL HISTORY Hx Carotid Endarterectomy: Yes - ANESTHESIA Hx Anesthesia: Yes ([place] estrella) Hx Anesthesia Reactions: No Hx Malignant Hyperthermia: No Meds Allergies/Adverse Reactions: Allergies Allergy/AdvReac Type Severity Reaction Status Date / Time No Known Allergies Allergy Verified 09/06/18 15:42 - Medications Medications: Current Medications Aspirin (Aspirin) 325 mg PO DAILY [facility] Last Admin: 10/22/18 08:54 Dose: 325 mg Atorvastatin Calcium (Lipitor) 40 mg PO DAILY [facility] Last Admin: 10/22/18 08:56 Dose: 40 mg Furosemide (Lasix) 40 mg IVP BID [facility] Last Admin: 10/22/18 08:56 Dose: 40 mg Cefepime HCl 1 gm/ Sodium (Chloride) 100 mls @ 100 mls/hr IVPB DAILY [facility]; Protocol Last Admin: 10/21/18 18:02 Dose: 100 mls/hr Insulin Human Lispro (Humalog) 0 units SC ACHS [facility]; Protocol Last Admin: 10/22/18 08:55 Dose: Not Given Metoprolol Tartrate (Lopressor) 75 mg PO Q12 [facility] Last Admin: 10/22/18 08:56 Dose: 75 mg Pantoprazole Sodium (Protonix Inj) 40 mg IVP DAILY [facility] Sitagliptin Phosphate (Januvia) 25 mg PO DAILY [facility] Physical Exam - Constitutional Appears: Non-toxic - Head Exam Head Exam: NORMAL INSPECTION - Eye Exam Eye Exam: Normal appearance - ENT Exam ENT Exam: Mucous Membranes Moist, Normal Exam - Neck Exam Neck exam: Positive for: Full Rom, Normal Inspection - Respiratory Exam Respiratory Exam: Decreased Breath Sounds - Cardiovascular Exam Cardiovascular Exam: REGULAR RHYTHM, +S1, Systolic Murmur - GI/Abdominal Exam GI & Abdominal Exam: Normal Bowel Sounds, Soft - Rectal Exam Rectal Exam: Deferred - Extremities Exam Extremities exam: Negative for: pedal edema - Back Exam Back exam: NORMAL INSPECTION - Neurological Exam Neurological exam: Alert, Oriented x3 - Psychiatric Exam Psychiatric exam: Normal Affect - Skin Skin Exam: Normal Color Results - Vital Signs Recent Vital Signs: Last Vital Signs Temp 98.5 F 10/22/18 12:00 Pulse 75 10/22/18 12:00 Resp 20 10/22/18 12:00 BP 145/54 L 10/22/18 12:00 Pulse Ox 100 10/22/18 12:00 - Labs Result Diagrams: 10/22/18 09:00 10/22/18 08:15 Labs: Laboratory Results - last 24 hr 10/21/18 10/21/18 10/21/18 01:05 16:05 16:15 WBC RBC Hgb Hct MCV MCH MCHC RDW Plt Count MPV Neut % (Auto) Lymph % (Auto) [place] % (Auto) Eos % (Auto) Baso % (Auto) Neut # (Auto) Lymph # (Auto) [place] # (Auto) Eos # (Auto) Baso # (Auto) Neutrophils % (Manual) Lymphocytes % (Manual) Monocytes % (Manual) Platelet Estimate Hypochromasia (manual) Anisocytosis (manual) Ovalocytes Retic Count PT INR APTT D-Dimer, Quantitative pCO2 35 pO2 134 H HCO3 9.4 L* ABG pH 7.05 L* ABG Total CO2 10.8 L ABG O2 Saturation 99.5 H ABG Base Excess -19.9 L Rashawn Test Yes ABG Potassium 5.6 H A-a O2 Difference 535.0 Sodium 134.0 Chloride 106.0 Glucose 315 H Lactate 8.1 H* FiO2 100.0 Crit Value Called To Dr antonieta barba Crit Value Called By Maryjane juarez rt Crit Value Read Back Y Blood Gas Notified Time 1623 Potassium Carbon Dioxide Anion Gap BUN Creatinine Est GFR ( Amer) Est GFR (Non-Af Amer) POC Glucose (mg/dL) 237 H Random Glucose Lactic Acid Calcium Magnesium Iron TIBC % Saturation Total Bilirubin AST ALT Alkaline Phosphatase Troponin I NT-Pro-B Natriuret Pep Total Protein Albumin Globulin Albumin/Globulin Ratio Arterial Blood Potassium 5.6 H Urine Color Urine Clarity Urine pH Ur Specific Disney Urine Protein Urine Glucose (UA) Urine Ketones Urine Blood Urine Nitrate Urine Bilirubin Urine Urobilinogen Ur Leukocyte Esterase Urine RBC (Auto) Urine WBC Clumps (Auto) Urine Microscopic WBC Urine Bacteria Influenza Typ A,B (EIA) Negative for flu a/b Blood Type Antibody Screen ROBI, Poly Interpret Crossmatch Crossmatch IS Only BBK History Checked 10/21/18 10/21/18 10/21/18 16:16 16:16 16:16 WBC 16.9 H D RBC 2.36 L Hgb 6.2 L* D Hct 21.4 L MCV 90.4 D MCH 26.2 L MCHC 28.9 L RDW 20.2 H Plt Count 401 H D MPV 7.7 Neut % (Auto) 78.5 H Lymph % (Auto) 12.4 L [place] % (Auto) 8.5 Eos % (Auto) 0.1 Baso % (Auto) 0.5 Neut # (Auto) 13.3 H Lymph # (Auto) 2.1 [place] # (Auto) 1.4 H Eos # (Auto) 0.0 Baso # (Auto) 0.1 Neutrophils % (Manual) Lymphocytes % (Manual) Monocytes % (Manual) Platelet Estimate Hypochromasia (manual) Anisocytosis (manual) Ovalocytes Retic Count PT 11.5 INR 1.0 APTT 23.5 L D-Dimer, Quantitative 2433 H pCO2 pO2 HCO3 ABG pH ABG Total CO2 ABG O2 Saturation ABG Base Excess Rashawn Test ABG Potassium A-a O2 Difference Sodium 136 Chloride 109 H Glucose Lactate FiO2 Crit Value Called To Crit Value Called By Crit Value Read Back Blood Gas Notified Time Potassium 5.7 H Carbon Dioxide 8 L* D Anion Gap 25 H BUN 61 H Creatinine 4.0 H Est GFR ( Amer) 17 Est GFR (Non-Af Amer) 14 POC Glucose (mg/dL) Random Glucose 292 H Lactic Acid Calcium 9.9 Magnesium Iron TIBC % Saturation Total Bilirubin 0.3 AST 55 ALT 27 Alkaline Phosphatase 107 Troponin I 7.6800 H* NT-Pro-B Natriuret Pep 8850 H Total Protein 7.1 Albumin 4.2 Globulin 2.9 Albumin/Globulin Ratio 1.4 Arterial Blood Potassium Urine Color Urine Clarity Urine pH Ur Specific Disney Urine Protein Urine Glucose (UA) Urine Ketones Urine Blood Urine Nitrate Urine Bilirubin Urine Urobilinogen Ur Leukocyte Esterase Urine RBC (Auto) Urine WBC Clumps (Auto) Urine Microscopic WBC Urine Bacteria Influenza Typ A,B (EIA) Blood Type Antibody Screen ROBI, Poly Interpret Crossmatch Crossmatch IS Only BBK History Checked 10/21/18 10/21/18 10/21/18 16:16 16:16 23:59 WBC RBC Hgb Hct MCV MCH MCHC RDW Plt Count MPV Neut % (Auto) Lymph % (Auto) [place] % (Auto) Eos % (Auto) Baso % (Auto) Neut # (Auto) Lymph # (Auto) [place] # (Auto) Eos # (Auto) Baso # (Auto) Neutrophils % (Manual) Lymphocytes % (Manual) Monocytes % (Manual) Platelet Estimate Hypochromasia (manual) Anisocytosis (manual) Ovalocytes Retic Count PT INR APTT D-Dimer, Quantitative pCO2 pO2 HCO3 ABG pH ABG Total CO2 ABG O2 Saturation ABG Base Excess Rashawn Test ABG Potassium A-a O2 Difference Sodium Chloride Glucose Lactate FiO2 Crit Value Called To Crit Value Called By Crit Value Read Back Blood Gas Notified Time Potassium Carbon Dioxide Anion Gap BUN Creatinine Est GFR ( Amer) Est GFR (Non-Af Amer) POC Glucose (mg/dL) Random Glucose Lactic Acid 1.4 Calcium Magnesium Iron TIBC % Saturation Total Bilirubin AST ALT Alkaline Phosphatase Troponin I NT-Pro-B Natriuret Pep Total Protein Albumin Globulin Albumin/Globulin Ratio Arterial Blood Potassium Urine Color Yellow Urine Clarity Cloudy Urine pH 5.0 Ur Specific Disney 1.014 Urine Protein 30 Urine Glucose (UA) Neg Urine Ketones Negative Urine Blood Moderate Urine Nitrate Negative Urine Bilirubin Negative Urine Urobilinogen 0.2-1.0 Ur Leukocyte Esterase Large Urine RBC (Auto) 17 H Urine WBC Clumps (Auto) Few H Urine Microscopic WBC 72 H Urine Bacteria Many H Influenza Typ A,B (EIA) Blood Type A POSITIVE Antibody Screen Negative ROBI, Poly Interpret Crossmatch Crossmatch IS Only BBK History Checked Patient has bt 10/21/18 10/21/18 10/21/18 23:59 23:59 23:59 WBC 11.4 H RBC 2.10 L Hgb 5.7 L* Hct 18.2 L MCV 86.7 D MCH 27.4 MCHC 31.6 L RDW 18.5 H Plt Count 268 D MPV 7.3 Neut % (Auto) 89.9 H Lymph % (Auto) 2.5 L [place] % (Auto) 7.3 Eos % (Auto) 0.1 Baso % (Auto) 0.2 Neut # (Auto) 10.2 H Lymph # (Auto) 0.3 L [place] # (Auto) 0.8 Eos # (Auto) 0.0 Baso # (Auto) 0.0 Neutrophils % (Manual) 91 H Lymphocytes % (Manual) 6 L Monocytes % (Manual) 3 Platelet Estimate Normal Hypochromasia (manual) Slight Anisocytosis (manual) Slight Ovalocytes Slight Retic Count PT INR APTT D-Dimer, Quantitative pCO2 pO2 HCO3 ABG pH ABG Total CO2 ABG O2 Saturation ABG Base Excess Rashawn Test ABG Potassium A-a O2 Difference Sodium 138 Chloride 111 H Glucose Lactate FiO2 Crit Value Called To Crit Value Called By Crit Value Read Back Blood Gas Notified Time Potassium 5.3 H Carbon Dioxide 17 L Anion Gap 15 BUN 66 H Creatinine 4.3 H Est GFR ( Amer) 16 Est GFR (Non-Af Amer) 13 POC Glucose (mg/dL) Random Glucose 156 H Lactic Acid Calcium 8.9 Magnesium Iron TIBC % Saturation Total Bilirubin 0.4 AST 109 H D ALT 32 Alkaline Phosphatase 80 Troponin I 18.8000 H* NT-Pro-B Natriuret Pep Total Protein 5.8 L Albumin 3.2 L D Globulin 2.6 Albumin/Globulin Ratio 1.2 Arterial Blood Potassium Urine Color Urine Clarity Urine pH Ur Specific [place] Urine Protein Urine Glucose (UA) Urine Ketones Urine Blood Urine Nitrate Urine Bilirubin Urine Urobilinogen Ur Leukocyte Esterase Urine RBC (Auto) Urine WBC Clumps (Auto) Urine Microscopic WBC Urine Bacteria Influenza Typ A,B (EIA) Blood Type Antibody Screen ROBI, Poly Interpret Crossmatch Crossmatch IS Only BBK History Checked 10/22/18 10/22/18 10/22/18 00:40 03:40 03:40 WBC RBC Hgb Hct MCV MCH MCHC RDW Plt Count MPV Neut % (Auto) Lymph % (Auto) [place] % (Auto) Eos % (Auto) Baso % (Auto) Neut # (Auto) Lymph # (Auto) [place] # (Auto) Eos # (Auto) Baso # (Auto) Neutrophils % (Manual) Lymphocytes % (Manual) Monocytes % (Manual) Platelet Estimate Hypochromasia (manual) Anisocytosis (manual) Ovalocytes Retic Count PT INR APTT D-Dimer, Quantitative pCO2 pO2 HCO3 ABG pH ABG Total CO2 ABG O2 Saturation ABG Base Excess Rashawn Test ABG Potassium A-a O2 Difference Sodium Chloride Glucose Lactate FiO2 Crit Value Called To Crit Value Called By Crit Value Read Back Blood Gas Notified Time Potassium Carbon Dioxide Anion Gap BUN Creatinine Est GFR ( Amer) Est GFR (Non-Af Amer) POC Glucose (mg/dL) Random Glucose Lactic Acid 1.4 Calcium Magnesium 2.0 Iron TIBC % Saturation Total Bilirubin AST ALT Alkaline Phosphatase Troponin I NT-Pro-B Natriuret Pep Total Protein Albumin Globulin Albumin/Globulin Ratio Arterial Blood Potassium Urine Color Urine Clarity Urine pH Ur Specific Disney Urine Protein Urine Glucose (UA) Urine Ketones Urine Blood Urine Nitrate Urine Bilirubin Urine Urobilinogen Ur Leukocyte Esterase Urine RBC (Auto) Urine WBC Clumps (Auto) Urine Microscopic WBC Urine Bacteria Influenza Typ A,B (EIA) Blood Type A POSITIVE Antibody Screen Negative ROBI, Poly Interpret Negative Crossmatch See Detail Crossmatch IS Only See Detail BBK History Checked Patient has bt 10/22/18 10/22/18 10/22/18 05:13 08:15 09:00 WBC 11.7 H RBC 2.72 L Hgb 7.6 L Hct 23.6 L MCV 87.0 MCH 28.0 MCHC 32.2 L RDW 16.8 H Plt Count 243 MPV 7.4 Neut % (Auto) 85.7 H Lymph % (Auto) 4.3 L [place] % (Auto) 9.5 Eos % (Auto) 0.3 Baso % (Auto) 0.2 Neut # (Auto) 10.0 H Lymph # (Auto) 0.5 L [place] # (Auto) 1.1 H Eos # (Auto) 0.0 Baso # (Auto) 0.0 Neutrophils % (Manual) Lymphocytes % (Manual) Monocytes % (Manual) Platelet Estimate Hypochromasia (manual) Anisocytosis (manual) Ovalocytes Retic Count PT INR APTT D-Dimer, Quantitative pCO2 pO2 HCO3 ABG pH ABG Total CO2 ABG O2 Saturation ABG Base Excess Rashawn Test ABG Potassium A-a O2 Difference Sodium 138 Chloride 109 H Glucose Lactate FiO2 Crit Value Called To Crit Value Called By Crit Value Read Back Blood Gas Notified Time Potassium 5.3 H Carbon Dioxide 18 L Anion Gap 16 BUN 66 H Creatinine 4.4 H Est GFR ( Amer) 16 Est GFR (Non-Af Amer) 13 POC Glucose (mg/dL) 155 H Random Glucose 130 H Lactic Acid Calcium 9.1 Magnesium Iron TIBC % Saturation Total Bilirubin 0.6 AST 110 H ALT 30 Alkaline Phosphatase 83 Troponin I NT-Pro-B Natriuret Pep Total Protein 6.0 L Albumin 3.3 L Globulin 2.7 Albumin/Globulin Ratio 1.2 Arterial Blood Potassium Urine Color Urine Clarity Urine pH Ur Specific Disney Urine Protein Urine Glucose (UA) Urine Ketones Urine Blood Urine Nitrate Urine Bilirubin Urine Urobilinogen Ur Leukocyte Esterase Urine RBC (Auto) Urine WBC Clumps (Auto) Urine Microscopic WBC Urine Bacteria Influenza Typ A,B (EIA) Blood Type Antibody Screen ROBI, Poly Interpret Crossmatch Crossmatch IS Only BBK History Checked 10/22/18 10/22/18 10/22/18 11:00 11:00 11:11 WBC RBC Hgb Hct MCV MCH MCHC RDW Plt Count MPV Neut % (Auto) Lymph % (Auto) [place] % (Auto) Eos % (Auto) Baso % (Auto) Neut # (Auto) Lymph # (Auto) [place] # (Auto) Eos # (Auto) Baso # (Auto) Neutrophils % (Manual) Lymphocytes % (Manual) Monocytes % (Manual) Platelet Estimate Hypochromasia (manual) Anisocytosis (manual) Ovalocytes Retic Count 4.2 H PT INR APTT D-Dimer, Quantitative pCO2 pO2 HCO3 ABG pH ABG Total CO2 ABG O2 Saturation ABG Base Excess Rashawn Test ABG Potassium A-a O2 Difference Sodium Chloride Glucose Lactate FiO2 Crit Value Called To Crit Value Called By Crit Value Read Back Blood Gas Notified Time Potassium Carbon Dioxide Anion Gap BUN Creatinine Est GFR ( Amer) Est GFR (Non-Af Amer) POC Glucose (mg/dL) 170 H Random Glucose Lactic Acid Calcium Magnesium Iron 66 TIBC 339 % Saturation 19 L Total Bilirubin AST ALT Alkaline Phosphatase Troponin I NT-Pro-B Natriuret Pep Total Protein Albumin Globulin Albumin/Globulin Ratio Arterial Blood Potassium Urine Color Urine Clarity Urine pH Ur Specific Disney Urine Protein Urine Glucose (UA) Urine Ketones Urine Blood Urine Nitrate Urine Bilirubin Urine Urobilinogen Ur Leukocyte Esterase Urine RBC (Auto) Urine WBC Clumps (Auto) Urine Microscopic WBC Urine Bacteria Influenza Typ A,B (EIA) Blood Type Antibody Screen ROBI, Poly Interpret Crossmatch Crossmatch IS Only BBK History Checked - EKG Data EKG Interpreted by: Myself EKG shows normal: Sinus rhythm Assessment & Plan (1) 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 Assessment and Plan: Patient has known aortic stenosis and was scheduled for cardiac cath Tuesday. he is currently not stable for cath. will cancel procedure, and treat medically with antibiotics and blood transufsion. d/c nitro as patient has severe . Status: Acute (2) Anemia Assessment and Plan: GI work up Status: Acute Priority: High (3) Aortic stenosis Assessment and Plan: severe by previous echo. Medical therapy. cannot undergo further work up at this time. Status: Acute (4) HTN (hypertension) Assessment and Plan: blood pressure control Status: Chronic Priority: High
[2018-10-22 13:26] LABS: FERRITIN 19.1 ng/Ml (17.9-464)
[2018-10-22] MEDS ORDERED: EPOETIN ALFA 10,000 UNIT/ML ML SC ONE (14:03)
--- NOTE | 2018-10-22 16:57 | CP.PCM.CON ---
History of Present Illness - History of Present Illness History of Present Illness: renal consult note 83 YOM came to ER with c/o left sided CP off and on for two days, even before that he was having this pain off and on for weeks but more frequent for two days. on admission to icu nted to have CXR showing pulm congestion, Pt was anemia Hb 6.5, acidosis,he recieved iv lasix and blood transfusion since admission. His previous history reviewed from hospital record. Has h/o sever , CHF, DM, and CKD-4 and metabolic acidosis in the past. He has been a smoker for 40 years, just quit 3 months ago. He has been anemic chronically, probably from CKD. complete ros is negative meds reviewed pmh as above social hx ex smoker, ,no alcohol vitla reviewed asleep nad heent normal no jvd s1s2 present bilateral air entry equal abd soft nt nd skin normal cooperative ao times 3 plan KENJI/CKD stage 4/pulm edema/anemia/chf/dm monitor UOP lytes reviewed anemia check iron profile, i have added epogen agree with transfusion okto use lasix as needed for diureiss check phos levels acidosis i have added po bicarb Past Patient History - Past Medical History & Family History Past Medical History?: Yes - Past Social History Smoking Status: Never Smoked - CARDIAC Hx Cardiac Disorders: Yes - PULMONARY Hx Chronic Obstructive Pulmonary Disease (COPD): Yes - NEUROLOGICAL Hx Neurological Disorder: Yes - HEENT Hx HEENT Problems: Yes - RENAL Hx Chronic Kidney Disease: Yes - ENDOCRINE/METABOLIC Hx Endocrine Disorders: Yes - HEMATOLOGICAL/ONCOLOGICAL Hx Anemia: Yes - INTEGUMENTARY Hx Dermatological Problems: No - MUSCULOSKELETAL/RHEUMATOLOGICAL Hx Musculoskeletal Disorders: Yes Hx Falls: No - GASTROINTESTINAL Hx Gastritis: Yes Hx Pancreatitis: Yes - GENITOURINARY/GYNECOLOGICAL Hx Genitourinary Disorders: Yes - PSYCHIATRIC Hx Psychophysiologic Disorder: No Hx Substance Use: No - SURGICAL HISTORY Hx Carotid Endarterectomy: Yes - ANESTHESIA Hx Anesthesia: Yes ([place] ding) Hx Anesthesia Reactions: No Hx Malignant Hyperthermia: No Meds Allergies/Adverse Reactions: Allergies Allergy/AdvReac Type Severity Reaction Status Date / Time No Known Allergies Allergy Verified 09/06/18 15:42 - Medications Medications: Current Medications Aspirin (Aspirin) 325 mg PO DAILY [facility] Last Admin: 10/22/18 08:54 Dose: 325 mg Atorvastatin Calcium (Lipitor) 40 mg PO DAILY [facility] Last Admin: 10/22/18 08:56 Dose: 40 mg Furosemide (Lasix) 40 mg IVP BID [facility] Last Admin: 10/22/18 08:56 Dose: 40 mg Cefepime HCl 1 gm/ Sodium (Chloride) 100 mls @ 100 mls/hr IVPB DAILY [facility]; Protocol Last Admin: 10/22/18 12:41 Dose: 100 mls/hr Insulin Human Lispro (Humalog) 0 units SC ACHS [facility]; Protocol Last Admin: 10/22/18 12:40 Dose: 1 unit Metoprolol Tartrate (Lopressor) 75 mg PO Q12 [facility] Last Admin: 10/22/18 08:56 Dose: 75 mg Pantoprazole Sodium (Protonix Inj) 40 mg IVP DAILY [facility] Last Admin: 10/22/18 12:45 Dose: 40 mg Sitagliptin Phosphate (Januvia) 25 mg PO DAILY [facility] Last Admin: 10/22/18 16:11 Dose: 25 mg Sodium Bicarbonate (Sodium Bicarbonate Tab) 650 mg PO Q8 [facility] Last Admin: 10/22/18 16:12 Dose: 650 mg Results - Vital Signs Recent Vital Signs: Last Vital Signs Temp 97.8 F 10/22/18 15:46 Pulse 77 10/22/18 15:46 Resp 18 10/22/18 15:46 BP 125/65 10/22/18 15:46 Pulse Ox 100 10/22/18 15:46 - Labs Result Diagrams: 10/22/18 09:00 10/22/18 08:15 Labs: Laboratory Results - last 24 hr 10/21/18 10/21/18 10/21/18 01:05 13:00 16:16 WBC RBC Hgb Hct MCV MCH MCHC RDW Plt Count MPV Neut % (Auto) Lymph % (Auto) [place] % (Auto) Eos % (Auto) Baso % (Auto) Neut # (Auto) Lymph # (Auto) [place] # (Auto) Eos # (Auto) Baso # (Auto) Neutrophils % (Manual) Lymphocytes % (Manual) Monocytes % (Manual) Platelet Estimate Hypochromasia (manual) Anisocytosis (manual) Ovalocytes Retic Count D-Dimer, Quantitative Sodium 136 Potassium 5.7 H Chloride 109 H Carbon Dioxide 8 L* D Anion Gap 25 H BUN 61 H Creatinine 4.0 H Est GFR ( Amer) 17 Est GFR (Non-Af Amer) 14 POC Glucose (mg/dL) Random Glucose 292 H Lactic Acid Calcium 9.9 Magnesium Iron TIBC % Saturation Ferritin Total Bilirubin 0.3 AST 55 ALT 27 Alkaline Phosphatase 107 Troponin I 7.6800 H* NT-Pro-B Natriuret Pep 8850 H Total Protein 7.1 Albumin 4.2 Globulin 2.9 Albumin/Globulin Ratio 1.4 Vitamin B12 Urine Color Urine Clarity Urine pH Ur Specific [place] Urine Protein Urine Glucose (UA) Urine Ketones Urine Blood Urine Nitrate Urine Bilirubin Urine Urobilinogen Ur Leukocyte Esterase Urine RBC (Auto) Urine WBC Clumps (Auto) Urine Microscopic WBC Urine Bacteria Influenza Typ A,B (EIA) Negative for flu a/b Negative for flu a/b Blood Type Antibody Screen ROBI, Poly Interpret Crossmatch Crossmatch IS Only BBK History Checked 10/21/18 10/21/18 10/21/18 16:16 16:16 16:16 WBC 16.9 H D RBC 2.36 L Hgb 6.2 L* D Hct 21.4 L MCV 90.4 D MCH 26.2 L MCHC 28.9 L RDW 20.2 H Plt Count 401 H D MPV 7.7 Neut % (Auto) 78.5 H Lymph % (Auto) 12.4 L [place] % (Auto) 8.5 Eos % (Auto) 0.1 Baso % (Auto) 0.5 Neut # (Auto) 13.3 H Lymph # (Auto) 2.1 [place] # (Auto) 1.4 H Eos # (Auto) 0.0 Baso # (Auto) 0.1 Neutrophils % (Manual) Lymphocytes % (Manual) Monocytes % (Manual) Platelet Estimate Hypochromasia (manual) Anisocytosis (manual) Ovalocytes Retic Count D-Dimer, Quantitative 2433 H Sodium Potassium Chloride Carbon Dioxide Anion Gap BUN Creatinine Est GFR ( Amer) Est GFR (Non-Af Amer) POC Glucose (mg/dL) Random Glucose Lactic Acid Calcium Magnesium Iron TIBC % Saturation Ferritin Total Bilirubin AST ALT Alkaline Phosphatase Troponin I NT-Pro-B Natriuret Pep Total Protein Albumin Globulin Albumin/Globulin Ratio Vitamin B12 Urine Color Urine Clarity Urine pH Ur Specific [place] Urine Protein Urine Glucose (UA) Urine Ketones Urine Blood Urine Nitrate Urine Bilirubin Urine Urobilinogen Ur Leukocyte Esterase Urine RBC (Auto) Urine WBC Clumps (Auto) Urine Microscopic WBC Urine Bacteria Influenza Typ A,B (EIA) Blood Type A POSITIVE Antibody Screen Negative ROBI, Poly Interpret Crossmatch Crossmatch IS Only BBK History Checked Patient has bt 10/21/18 10/21/18 10/21/18 16:16 23:59 23:59 WBC RBC Hgb Hct MCV MCH MCHC RDW Plt Count MPV Neut % (Auto) Lymph % (Auto) [place] % (Auto) Eos % (Auto) Baso % (Auto) Neut # (Auto) Lymph # (Auto) [place] # (Auto) Eos # (Auto) Baso # (Auto) Neutrophils % (Manual) Lymphocytes % (Manual) Monocytes % (Manual) Platelet Estimate Hypochromasia (manual) Anisocytosis (manual) Ovalocytes Retic Count D-Dimer, Quantitative Sodium Potassium Chloride Carbon Dioxide Anion Gap BUN Creatinine Est GFR ( Amer) Est GFR (Non-Af Amer) POC Glucose (mg/dL) Random Glucose Lactic Acid 1.4 Calcium Magnesium Iron TIBC % Saturation Ferritin Total Bilirubin AST ALT Alkaline Phosphatase Troponin I 18.8000 H* NT-Pro-B Natriuret Pep Total Protein Albumin Globulin Albumin/Globulin Ratio Vitamin B12 Urine Color Yellow Urine Clarity Cloudy Urine pH 5.0 Ur Specific [place] 1.014 Urine Protein 30 Urine Glucose (UA) Neg Urine Ketones Negative Urine Blood Moderate Urine Nitrate Negative Urine Bilirubin Negative Urine Urobilinogen 0.2-1.0 Ur Leukocyte Esterase Large Urine RBC (Auto) 17 H Urine WBC Clumps (Auto) Few H Urine Microscopic WBC 72 H Urine Bacteria Many H Influenza Typ A,B (EIA) Blood Type Antibody Screen ROBI, Poly Interpret Crossmatch Crossmatch IS Only BBK History Checked 10/21/18 10/21/18 10/22/18 23:59 23:59 00:40 WBC 11.4 H RBC 2.10 L Hgb 5.7 L* Hct 18.2 L MCV 86.7 D MCH 27.4 MCHC 31.6 L RDW 18.5 H Plt Count 268 D MPV 7.3 Neut % (Auto) 89.9 H Lymph % (Auto) 2.5 L [place] % (Auto) 7.3 Eos % (Auto) 0.1 Baso % (Auto) 0.2 Neut # (Auto) 10.2 H Lymph # (Auto) 0.3 L [place] # (Auto) 0.8 Eos # (Auto) 0.0 Baso # (Auto) 0.0 Neutrophils % (Manual) 91 H Lymphocytes % (Manual) 6 L Monocytes % (Manual) 3 Platelet Estimate Normal Hypochromasia (manual) Slight Anisocytosis (manual) Slight Ovalocytes Slight Retic Count D-Dimer, Quantitative Sodium 138 Potassium 5.3 H Chloride 111 H Carbon Dioxide 17 L Anion Gap 15 BUN 66 H Creatinine 4.3 H Est GFR ( Amer) 16 Est GFR (Non-Af Amer) 13 POC Glucose (mg/dL) Random Glucose 156 H Lactic Acid Calcium 8.9 Magnesium Iron TIBC % Saturation Ferritin Total Bilirubin 0.4 AST 109 H D ALT 32 Alkaline Phosphatase 80 Troponin I NT-Pro-B Natriuret Pep Total Protein 5.8 L Albumin 3.2 L D Globulin 2.6 Albumin/Globulin Ratio 1.2 Vitamin B12 Urine Color Urine Clarity Urine pH Ur Specific [place] Urine Protein Urine Glucose (UA) Urine Ketones Urine Blood Urine Nitrate Urine Bilirubin Urine Urobilinogen Ur Leukocyte Esterase Urine RBC (Auto) Urine WBC Clumps (Auto) Urine Microscopic WBC Urine Bacteria Influenza Typ A,B (EIA) Blood Type A POSITIVE Antibody Screen Negative ROBI, Poly Interpret Negative Crossmatch See Detail Crossmatch IS Only See Detail BBK History Checked Patient has bt 10/22/18 10/22/18 10/22/18 03:40 03:40 05:13 WBC RBC Hgb Hct MCV MCH MCHC RDW Plt Count MPV Neut % (Auto) Lymph % (Auto) [place] % (Auto) Eos % (Auto) Baso % (Auto) Neut # (Auto) Lymph # (Auto) [place] # (Auto) Eos # (Auto) Baso # (Auto) Neutrophils % (Manual) Lymphocytes % (Manual) Monocytes % (Manual) Platelet Estimate Hypochromasia (manual) Anisocytosis (manual) Ovalocytes Retic Count D-Dimer, Quantitative Sodium Potassium Chloride Carbon Dioxide Anion Gap BUN Creatinine Est GFR ( Amer) Est GFR (Non-Af Amer) POC Glucose (mg/dL) 155 H Random Glucose Lactic Acid 1.4 Calcium Magnesium 2.0 Iron TIBC % Saturation Ferritin Total Bilirubin AST ALT Alkaline Phosphatase Troponin I NT-Pro-B Natriuret Pep Total Protein Albumin Globulin Albumin/Globulin Ratio Vitamin B12 Urine Color Urine Clarity Urine pH Ur Specific [place] Urine Protein Urine Glucose (UA) Urine Ketones Urine Blood Urine Nitrate Urine Bilirubin Urine Urobilinogen Ur Leukocyte Esterase Urine RBC (Auto) Urine WBC Clumps (Auto) Urine Microscopic WBC Urine Bacteria Influenza Typ A,B (EIA) Blood Type Antibody Screen ROBI, Poly Interpret Crossmatch Crossmatch IS Only BBK History Checked 10/22/18 10/22/18 10/22/18 08:15 09:00 11:00 WBC 11.7 H RBC 2.72 L Hgb 7.6 L Hct 23.6 L MCV 87.0 MCH 28.0 MCHC 32.2 L RDW 16.8 H Plt Count 243 MPV 7.4 Neut % (Auto) 85.7 H Lymph % (Auto) 4.3 L [place] % (Auto) 9.5 Eos % (Auto) 0.3 Baso % (Auto) 0.2 Neut # (Auto) 10.0 H Lymph # (Auto) 0.5 L [place] # (Auto) 1.1 H Eos # (Auto) 0.0 Baso # (Auto) 0.0 Neutrophils % (Manual) Lymphocytes % (Manual) Monocytes % (Manual) Platelet Estimate Hypochromasia (manual) Anisocytosis (manual) Ovalocytes Retic Count 4.2 H D-Dimer, Quantitative Sodium 138 Potassium 5.3 H Chloride 109 H Carbon Dioxide 18 L Anion Gap 16 BUN 66 H Creatinine 4.4 H Est GFR ( Amer) 16 Est GFR (Non-Af Amer) 13 POC Glucose (mg/dL) Random Glucose 130 H Lactic Acid Calcium 9.1 Magnesium Iron TIBC % Saturation Ferritin Total Bilirubin 0.6 AST 110 H ALT 30 Alkaline Phosphatase 83 Troponin I NT-Pro-B Natriuret Pep Total Protein 6.0 L Albumin 3.3 L Globulin 2.7 Albumin/Globulin Ratio 1.2 Vitamin B12 Urine Color Urine Clarity Urine pH Ur Specific [place] Urine Protein Urine Glucose (UA) Urine Ketones Urine Blood Urine Nitrate Urine Bilirubin Urine Urobilinogen Ur Leukocyte Esterase Urine RBC (Auto) Urine WBC Clumps (Auto) Urine Microscopic WBC Urine Bacteria Influenza Typ A,B (EIA) Blood Type Antibody Screen ROBI, Poly Interpret Crossmatch Crossmatch IS Only BBK History Checked 10/22/18 10/22/18 10/22/18 11:00 11:00 11:11 WBC RBC Hgb Hct MCV MCH MCHC RDW Plt Count MPV Neut % (Auto) Lymph % (Auto) [place] % (Auto) Eos % (Auto) Baso % (Auto) Neut # (Auto) Lymph # (Auto) [place] # (Auto) Eos # (Auto) Baso # (Auto) Neutrophils % (Manual) Lymphocytes % (Manual) Monocytes % (Manual) Platelet Estimate Hypochromasia (manual) Anisocytosis (manual) Ovalocytes Retic Count D-Dimer, Quantitative Sodium Potassium Chloride Carbon Dioxide Anion Gap BUN Creatinine Est GFR ( Amer) Est GFR (Non-Af Amer) POC Glucose (mg/dL) 170 H Random Glucose Lactic Acid Calcium Magnesium Iron 66 TIBC 339 % Saturation 19 L Ferritin 19.1 Total Bilirubin AST ALT Alkaline Phosphatase Troponin I NT-Pro-B Natriuret Pep Total Protein Albumin Globulin Albumin/Globulin Ratio Vitamin B12 717 Urine Color Urine Clarity Urine pH Ur Specific [place] Urine Protein Urine Glucose (UA) Urine Ketones Urine Blood Urine Nitrate Urine Bilirubin Urine Urobilinogen Ur Leukocyte Esterase Urine RBC (Auto) Urine WBC Clumps (Auto) Urine Microscopic WBC Urine Bacteria Influenza Typ A,B (EIA) Blood Type Antibody Screen ROBI, Poly Interpret Crossmatch Crossmatch IS Only BBK History Checked 10/22/18 16:29 WBC RBC Hgb Hct MCV MCH MCHC RDW Plt Count MPV Neut % (Auto) Lymph % (Auto) [place] % (Auto) Eos % (Auto) Baso % (Auto) Neut # (Auto) Lymph # (Auto) [place] # (Auto) Eos # (Auto) Baso # (Auto) Neutrophils % (Manual) Lymphocytes % (Manual) Monocytes % (Manual) Platelet Estimate Hypochromasia (manual) Anisocytosis (manual) Ovalocytes Retic Count D-Dimer, Quantitative Sodium Potassium Chloride Carbon Dioxide Anion Gap BUN Creatinine Est GFR ( Amer) Est GFR (Non-Af Amer) POC Glucose (mg/dL) 131 H Random Glucose Lactic Acid Calcium Magnesium Iron TIBC % Saturation Ferritin Total Bilirubin AST ALT Alkaline Phosphatase Troponin I NT-Pro-B Natriuret Pep Total Protein Albumin Globulin Albumin/Globulin Ratio Vitamin B12 Urine Color Urine Clarity Urine pH Ur Specific [place] Urine Protein Urine Glucose (UA) Urine Ketones Urine Blood Urine Nitrate Urine Bilirubin Urine Urobilinogen Ur Leukocyte Esterase Urine RBC (Auto) Urine WBC Clumps (Auto) Urine Microscopic WBC Urine Bacteria Influenza Typ A,B (EIA) Blood Type Antibody Screen ROBI, Poly Interpret Crossmatch Crossmatch IS Only BBK History Checked
[2018-10-22 16:59] LABS: FOLATE 9.5 ng/mL
--- NOTE | 2018-10-22 23:13 | CP.PCM.CON ---
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 Found in ER to have a profound anemia. No observed Gi bleeding. Had negative upper endoscopy in 2014 Review of Systems - Constitutional Constitutional: absent: Chills - EENT Eyes: absent: Blurred Vision Ears: absent: Ear Discharge Nose/Mouth/Throat: absent: Nasal Congestion - Cardiovascular Cardiovascular: absent: Chest Pain - Respiratory Respiratory: absent: Dyspnea - Gastrointestinal Gastrointestinal: absent: Abdominal Pain - Genitourinary Genitourinary: absent: Change in Urinary Stream Past Patient History - Past Medical History & Family History Past Medical History?: Yes - Past Social History Smoking Status: Never Smoked - CARDIAC Hx Cardiac Disorders: Yes - PULMONARY Hx Chronic Obstructive Pulmonary Disease (COPD): Yes - NEUROLOGICAL Hx Neurological Disorder: Yes - HEENT Hx HEENT Problems: Yes - RENAL Hx Chronic Kidney Disease: Yes - ENDOCRINE/METABOLIC Hx Endocrine Disorders: Yes - HEMATOLOGICAL/ONCOLOGICAL Hx Anemia: Yes - INTEGUMENTARY Hx Dermatological Problems: No - MUSCULOSKELETAL/RHEUMATOLOGICAL Hx Musculoskeletal Disorders: Yes Hx Falls: No - GASTROINTESTINAL Hx Gastritis: Yes Hx Pancreatitis: Yes - GENITOURINARY/GYNECOLOGICAL Hx Genitourinary Disorders: Yes - PSYCHIATRIC Hx Psychophysiologic Disorder: No Hx Substance Use: No - SURGICAL HISTORY Hx Carotid Endarterectomy: Yes - ANESTHESIA Hx Anesthesia: Yes (anton ding) Hx Anesthesia Reactions: No Hx Malignant Hyperthermia: No Meds Allergies/Adverse Reactions: Allergies Allergy/AdvReac Type Severity Reaction Status Date / Time No Known Allergies Allergy Verified 09/06/18 15:42 - Medications Medications: Current Medications Aspirin (Aspirin) 325 mg PO DAILY [facility] Last Admin: 10/22/18 08:54 Dose: 325 mg Atorvastatin Calcium (Lipitor) 40 mg PO DAILY [facility] Last Admin: 10/22/18 08:56 Dose: 40 mg Furosemide (Lasix) 40 mg IVP BID [facility] Last Admin: 10/22/18 18:07 Dose: 40 mg Cefepime HCl 1 gm/ Sodium (Chloride) 100 mls @ 100 mls/hr IVPB DAILY [facility]; Protocol Last Admin: 10/22/18 12:41 Dose: 100 mls/hr Iron Sucrose 200 mg/ Sodium (Chloride) 110 mls @ 110 mls/hr IVPB DAILY [facility] Stop: 10/28/18 09:01 Insulin Human Lispro (Humalog) 0 units SC ACHS [facility]; Protocol Last Admin: 10/22/18 21:36 Dose: Not Given Metoprolol Tartrate (Lopressor) 75 mg PO Q12 [facility] Last Admin: 10/22/18 21:38 Dose: 75 mg Pantoprazole Sodium (Protonix Inj) 40 mg IVP DAILY [facility] Last Admin: 10/22/18 12:45 Dose: 40 mg Sitagliptin Phosphate (Januvia) 25 mg PO DAILY [facility] Last Admin: 10/22/18 16:11 Dose: 25 mg Sodium Bicarbonate (Sodium Bicarbonate Tab) 650 mg PO Q8 [facility] Last Admin: 10/22/18 16:12 Dose: 650 mg Physical Exam - Head Exam Head Exam: ATRAUMATIC - Eye Exam Eye Exam: Normal appearance Pupil Exam: PERRL - ENT Exam ENT Exam: Normal Exam - Neck Exam Neck exam: Positive for: Normal Inspection - Respiratory Exam Respiratory Exam: Clear to Auscultation Bilateral - Cardiovascular Exam Cardiovascular Exam: REGULAR RHYTHM, +S1, +S2 - GI/Abdominal Exam GI & Abdominal Exam: Normal Bowel Sounds, Soft. absent: Tenderness Results - Vital Signs Recent Vital Signs: Last Vital Signs Temp 98.3 F 10/22/18 20:00 Pulse 86 10/22/18 21:38 Resp 16 10/22/18 20:00 BP 155/94 H 10/22/18 21:38 Pulse Ox 100 10/22/18 20:00 - Labs Result Diagrams: 10/22/18 09:00 10/22/18 08:15 Labs: Laboratory Results - last 24 hr 10/21/18 10/21/18 10/21/18 01:05 13:00 23:59 WBC RBC Hgb Hct MCV MCH MCHC RDW Plt Count MPV Neut % (Auto) Lymph % (Auto) [place] % (Auto) Eos % (Auto) Baso % (Auto) Neut # (Auto) Lymph # (Auto) [place] # (Auto) Eos # (Auto) Baso # (Auto) Neutrophils % (Manual) Lymphocytes % (Manual) Monocytes % (Manual) Platelet Estimate Hypochromasia (manual) Anisocytosis (manual) Ovalocytes Retic Count Sodium Potassium Chloride Carbon Dioxide Anion Gap BUN Creatinine Est GFR ( Amer) Est GFR (Non-Af Amer) POC Glucose (mg/dL) Random Glucose Lactic Acid 1.4 Calcium Magnesium Iron TIBC % Saturation Ferritin Total Bilirubin AST ALT Alkaline Phosphatase Troponin I Total Protein Albumin Globulin Albumin/Globulin Ratio Vitamin B12 Folate Procalcitonin Stool Occult Blood Influenza Typ A,B (EIA) Negative for flu a/b Negative for flu a/b Blood Type Antibody Screen ROBI, Poly Interpret Crossmatch Crossmatch IS Only BBK History Checked 10/21/18 10/21/18 10/21/18 23:59 23:59 23:59 WBC 11.4 H RBC 2.10 L Hgb 5.7 L* Hct 18.2 L MCV 86.7 D MCH 27.4 MCHC 31.6 L RDW 18.5 H Plt Count 268 D MPV 7.3 Neut % (Auto) 89.9 H Lymph % (Auto) 2.5 L [place] % (Auto) 7.3 Eos % (Auto) 0.1 Baso % (Auto) 0.2 Neut # (Auto) 10.2 H Lymph # (Auto) 0.3 L [place] # (Auto) 0.8 Eos # (Auto) 0.0 Baso # (Auto) 0.0 Neutrophils % (Manual) 91 H Lymphocytes % (Manual) 6 L Monocytes % (Manual) 3 Platelet Estimate Normal Hypochromasia (manual) Slight Anisocytosis (manual) Slight Ovalocytes Slight Retic Count Sodium 138 Potassium 5.3 H Chloride 111 H Carbon Dioxide 17 L Anion Gap 15 BUN 66 H Creatinine 4.3 H Est GFR ( Amer) 16 Est GFR (Non-Af Amer) 13 POC Glucose (mg/dL) Random Glucose 156 H Lactic Acid Calcium 8.9 Magnesium Iron TIBC % Saturation Ferritin Total Bilirubin 0.4 AST 109 H D ALT 32 Alkaline Phosphatase 80 Troponin I 18.8000 H* Total Protein 5.8 L Albumin 3.2 L D Globulin 2.6 Albumin/Globulin Ratio 1.2 Vitamin B12 Folate Procalcitonin Stool Occult Blood Influenza Typ A,B (EIA) Blood Type Antibody Screen ROBI, Poly Interpret Crossmatch Crossmatch IS Only BBK History Checked 10/22/18 10/22/18 10/22/18 00:40 03:40 03:40 WBC RBC Hgb Hct MCV MCH MCHC RDW Plt Count MPV Neut % (Auto) Lymph % (Auto) [place] % (Auto) Eos % (Auto) Baso % (Auto) Neut # (Auto) Lymph # (Auto) [place] # (Auto) Eos # (Auto) Baso # (Auto) Neutrophils % (Manual) Lymphocytes % (Manual) Monocytes % (Manual) Platelet Estimate Hypochromasia (manual) Anisocytosis (manual) Ovalocytes Retic Count Sodium Potassium Chloride Carbon Dioxide Anion Gap BUN Creatinine Est GFR ( Amer) Est GFR (Non-Af Amer) POC Glucose (mg/dL) Random Glucose Lactic Acid 1.4 Calcium Magnesium 2.0 Iron TIBC % Saturation Ferritin Total Bilirubin AST ALT Alkaline Phosphatase Troponin I Total Protein Albumin Globulin Albumin/Globulin Ratio Vitamin B12 Folate Procalcitonin Stool Occult Blood Influenza Typ A,B (EIA) Blood Type A POSITIVE Antibody Screen Negative ROBI, Poly Interpret Negative Crossmatch See Detail Crossmatch IS Only See Detail BBK History Checked Patient has bt 10/22/18 10/22/18 10/22/18 05:13 08:15 09:00 WBC 11.7 H RBC 2.72 L Hgb 7.6 L Hct 23.6 L MCV 87.0 MCH 28.0 MCHC 32.2 L RDW 16.8 H Plt Count 243 MPV 7.4 Neut % (Auto) 85.7 H Lymph % (Auto) 4.3 L [place] % (Auto) 9.5 Eos % (Auto) 0.3 Baso % (Auto) 0.2 Neut # (Auto) 10.0 H Lymph # (Auto) 0.5 L [place] # (Auto) 1.1 H Eos # (Auto) 0.0 Baso # (Auto) 0.0 Neutrophils % (Manual) Lymphocytes % (Manual) Monocytes % (Manual) Platelet Estimate Hypochromasia (manual) Anisocytosis (manual) Ovalocytes Retic Count Sodium 138 Potassium 5.3 H Chloride 109 H Carbon Dioxide 18 L Anion Gap 16 BUN 66 H Creatinine 4.4 H Est GFR ( Amer) 16 Est GFR (Non-Af Amer) 13 POC Glucose (mg/dL) 155 H Random Glucose 130 H Lactic Acid Calcium 9.1 Magnesium Iron TIBC % Saturation Ferritin Total Bilirubin 0.6 AST 110 H ALT 30 Alkaline Phosphatase 83 Troponin I Total Protein 6.0 L Albumin 3.3 L Globulin 2.7 Albumin/Globulin Ratio 1.2 Vitamin B12 Folate Procalcitonin Stool Occult Blood Influenza Typ A,B (EIA) Blood Type Antibody Screen ROBI, Poly Interpret Crossmatch Crossmatch IS Only BBK History Checked 10/22/18 10/22/18 10/22/18 09:00 11:00 11:00 WBC RBC Hgb Hct MCV MCH MCHC RDW Plt Count MPV Neut % (Auto) Lymph % (Auto) [place] % (Auto) Eos % (Auto) Baso % (Auto) Neut # (Auto) Lymph # (Auto) [place] # (Auto) Eos # (Auto) Baso # (Auto) Neutrophils % (Manual) Lymphocytes % (Manual) Monocytes % (Manual) Platelet Estimate Hypochromasia (manual) Anisocytosis (manual) Ovalocytes Retic Count 4.2 H Sodium Potassium Chloride Carbon Dioxide Anion Gap BUN Creatinine Est GFR ( Amer) Est GFR (Non-Af Amer) POC Glucose (mg/dL) Random Glucose Lactic Acid Calcium Magnesium Iron 66 TIBC 339 % Saturation 19 L Ferritin Total Bilirubin AST ALT Alkaline Phosphatase Troponin I Total Protein Albumin Globulin Albumin/Globulin Ratio Vitamin B12 Folate Procalcitonin 0.40 Stool Occult Blood Influenza Typ A,B (EIA) Blood Type Antibody Screen ROBI, Poly Interpret Crossmatch Crossmatch IS Only BBK History Checked 10/22/18 10/22/18 10/22/18 11:00 11:11 13:00 WBC RBC Hgb Hct MCV MCH MCHC RDW Plt Count MPV Neut % (Auto) Lymph % (Auto) [place] % (Auto) Eos % (Auto) Baso % (Auto) Neut # (Auto) Lymph # (Auto) [place] # (Auto) Eos # (Auto) Baso # (Auto) Neutrophils % (Manual) Lymphocytes % (Manual) Monocytes % (Manual) Platelet Estimate Hypochromasia (manual) Anisocytosis (manual) Ovalocytes Retic Count Sodium Potassium Chloride Carbon Dioxide Anion Gap BUN Creatinine Est GFR ( Amer) Est GFR (Non-Af Amer) POC Glucose (mg/dL) 170 H Random Glucose Lactic Acid Calcium Magnesium Iron TIBC % Saturation Ferritin 19.1 Total Bilirubin AST ALT Alkaline Phosphatase Troponin I Total Protein Albumin Globulin Albumin/Globulin Ratio Vitamin B12 717 Folate 9.5 Procalcitonin Stool Occult Blood Negative Influenza Typ A,B (EIA) Blood Type Antibody Screen ROBI, Poly Interpret Crossmatch Crossmatch IS Only BBK History Checked 10/22/18 10/22/18 16:29 21:27 WBC RBC Hgb Hct MCV MCH MCHC RDW Plt Count MPV Neut % (Auto) Lymph % (Auto) [place] % (Auto) Eos % (Auto) Baso % (Auto) Neut # (Auto) Lymph # (Auto) [place] # (Auto) Eos # (Auto) Baso # (Auto) Neutrophils % (Manual) Lymphocytes % (Manual) Monocytes % (Manual) Platelet Estimate Hypochromasia (manual) Anisocytosis (manual) Ovalocytes Retic Count Sodium Potassium Chloride Carbon Dioxide Anion Gap BUN Creatinine Est GFR ( Amer) Est GFR (Non-Af Amer) POC Glucose (mg/dL) 131 H 116 H Random Glucose Lactic Acid Calcium Magnesium Iron TIBC % Saturation Ferritin Total Bilirubin AST ALT Alkaline Phosphatase Troponin I Total Protein Albumin Globulin Albumin/Globulin Ratio Vitamin B12 Folate Procalcitonin Stool Occult Blood Influenza Typ A,B (EIA) Blood Type Antibody Screen ROBI, Poly Interpret Crossmatch Crossmatch IS Only BBK History Checked Assessment & Plan (1) Anemia Assessment and Plan: No definite GI cause for anemia. Stool occult blood negative Most likely etiolody is CKD 4. Will follow with you. Status: Acute Priority: High
--- NOTE | 2018-10-23 02:23 | CP.PCM.CON ---
History of Present Illness - History of Present Illness History of Present Illness: 83 year old male with a history of HTN, HL, CKD, aortic stenosis, presenting with shortness of breath and chest pain, found to be anemic. The patient notes to progressive shortness of breath and chest pain for several days which promp martine him to come to the ER. In the ER, he wa found to have a hgb of 5.7. He denies abnormal bleeding and bruising. Past medical history: HTN, HL, CKD< aortic stenosis Past surgical history: Denies Family history: Denies hematologic and oncologic problems Social history: Denies tobacco, alcohol, and illicit drug use. Allergies: NKA Review of systems: All remaining review of systems including HEENT, cardiovascular, respiratory, gastrointestinal, genitourinary, musculoskeletal, dermatologic, neurologic, and psychiatric are negative unless mentioned in the HPI. Past Patient History - Past Medical History & Family History Past Medical History?: Yes - Past Social History Smoking Status: Never Smoked - CARDIAC Hx Cardiac Disorders: Yes - PULMONARY Hx Chronic Obstructive Pulmonary Disease (COPD): Yes - NEUROLOGICAL Hx Neurological Disorder: Yes - HEENT Hx HEENT Problems: Yes - RENAL Hx Chronic Kidney Disease: Yes - ENDOCRINE/METABOLIC Hx Endocrine Disorders: Yes - HEMATOLOGICAL/ONCOLOGICAL Hx Anemia: Yes - INTEGUMENTARY Hx Dermatological Problems: No - MUSCULOSKELETAL/RHEUMATOLOGICAL Hx Musculoskeletal Disorders: Yes Hx Falls: No - GASTROINTESTINAL Hx Gastritis: Yes Hx Pancreatitis: Yes - GENITOURINARY/GYNECOLOGICAL Hx Genitourinary Disorders: Yes - PSYCHIATRIC Hx Psychophysiologic Disorder: No Hx Substance Use: No - SURGICAL HISTORY Hx Carotid Endarterectomy: Yes - ANESTHESIA Hx Anesthesia: Yes (anton ding) Hx Anesthesia Reactions: No Hx Malignant Hyperthermia: No Meds Allergies/Adverse Reactions: Allergies Allergy/AdvReac Type Severity Reaction Status Date / Time No Known Allergies Allergy Verified 09/06/18 15:42 - Medications Medications: Current Medications Aspirin (Aspirin) 325 mg PO DAILY [facility] Last Admin: 10/22/18 08:54 Dose: 325 mg Atorvastatin Calcium (Lipitor) 40 mg PO DAILY [facility] Last Admin: 10/22/18 08:56 Dose: 40 mg Furosemide (Lasix) 40 mg IVP BID [facility] Last Admin: 10/22/18 18:07 Dose: 40 mg Cefepime HCl 1 gm/ Sodium (Chloride) 100 mls @ 100 mls/hr IVPB DAILY [facility]; Protocol Last Admin: 10/22/18 12:41 Dose: 100 mls/hr Iron Sucrose 200 mg/ Sodium (Chloride) 110 mls @ 110 mls/hr IVPB DAILY [facility] Stop: 10/28/18 09:01 Insulin Human Lispro (Humalog) 0 units SC ACHS [facility]; Protocol Last Admin: 10/22/18 21:36 Dose: Not Given Metoprolol Tartrate (Lopressor) 75 mg PO Q12 [facility] Last Admin: 10/22/18 21:38 Dose: 75 mg Pantoprazole Sodium (Protonix Inj) 40 mg IVP DAILY [facility] Last Admin: 10/22/18 12:45 Dose: 40 mg Sitagliptin Phosphate (Januvia) 25 mg PO DAILY [facility] Last Admin: 10/22/18 16:11 Dose: 25 mg Sodium Bicarbonate (Sodium Bicarbonate Tab) 650 mg PO Q8 [facility] Last Admin: 10/23/18 01:43 Dose: 650 mg Physical Exam - Head Exam Head Exam: ATRAUMATIC - Eye Exam Eye Exam: Normal appearance - ENT Exam ENT Exam: Mucous Membranes Dry - Respiratory Exam Respiratory Exam: NORMAL BREATHING PATTERN - Cardiovascular Exam Cardiovascular Exam: +S1, +S2 - GI/Abdominal Exam GI & Abdominal Exam: Normal Bowel Sounds - Neurological Exam Neurological exam: Oriented x3 - Psychiatric Exam Psychiatric exam: Normal Affect, Normal Mood - Skin Skin Exam: Warm Results - Vital Signs Recent Vital Signs: Last Vital Signs Temp 98.4 F 10/23/18 00:00 Pulse 79 10/23/18 00:00 Resp 18 10/23/18 00:00 BP 125/63 10/23/18 00:00 Pulse Ox 100 10/23/18 00:00 - Labs Result Diagrams: 10/22/18 09:00 10/22/18 08:15 Labs: Laboratory Results - last 24 hr 10/21/18 10/21/18 10/21/18 13:00 23:59 23:59 WBC 11.4 H RBC 2.10 L Hgb 5.7 L* Hct 18.2 L MCV 86.7 D MCH 27.4 MCHC 31.6 L RDW 18.5 H Plt Count 268 D MPV 7.3 Neut % (Auto) 89.9 H Lymph % (Auto) 2.5 L [place] % (Auto) 7.3 Eos % (Auto) 0.1 Baso % (Auto) 0.2 Neut # (Auto) 10.2 H Lymph # (Auto) 0.3 L Person # (Auto) 0.8 Eos # (Auto) 0.0 Baso # (Auto) 0.0 Neutrophils % (Manual) 91 H Lymphocytes % (Manual) 6 L Monocytes % (Manual) 3 Platelet Estimate Normal Hypochromasia (manual) Slight Anisocytosis (manual) Slight Ovalocytes Slight Retic Count Sodium 138 Potassium 5.3 H Chloride 111 H Carbon Dioxide 17 L Anion Gap 15 BUN 66 H Creatinine 4.3 H Est GFR ( Amer) 16 Est GFR (Non-Af Amer) 13 POC Glucose (mg/dL) Random Glucose 156 H Lactic Acid Calcium 8.9 Magnesium Iron TIBC % Saturation Ferritin Total Bilirubin 0.4 AST 109 H D ALT 32 Alkaline Phosphatase 80 Total Protein 5.8 L Albumin 3.2 L D Globulin 2.6 Albumin/Globulin Ratio 1.2 Vitamin B12 Folate Procalcitonin Stool Occult Blood Influenza Typ A,B (EIA) Negative for flu a/b Blood Type Antibody Screen ROBI, Poly Interpret Crossmatch Crossmatch IS Only BBK History Checked 10/22/18 10/22/18 10/22/18 00:40 03:40 03:40 WBC RBC Hgb Hct MCV MCH MCHC RDW Plt Count MPV Neut % (Auto) Lymph % (Auto) [place] % (Auto) Eos % (Auto) Baso % (Auto) Neut # (Auto) Lymph # (Auto) Person # (Auto) Eos # (Auto) Baso # (Auto) Neutrophils % (Manual) Lymphocytes % (Manual) Monocytes % (Manual) Platelet Estimate Hypochromasia (manual) Anisocytosis (manual) Ovalocytes Retic Count Sodium Potassium Chloride Carbon Dioxide Anion Gap BUN Creatinine Est GFR ( Amer) Est GFR (Non-Af Amer) POC Glucose (mg/dL) Random Glucose Lactic Acid 1.4 Calcium Magnesium 2.0 Iron TIBC % Saturation Ferritin Total Bilirubin AST ALT Alkaline Phosphatase Total Protein Albumin Globulin Albumin/Globulin Ratio Vitamin B12 Folate Procalcitonin Stool Occult Blood Influenza Typ A,B (EIA) Blood Type A POSITIVE Antibody Screen Negative ROBI, Poly Interpret Negative Crossmatch See Detail Crossmatch IS Only See Detail BBK History Checked Patient has bt 10/22/18 10/22/18 10/22/18 05:13 08:15 09:00 WBC 11.7 H RBC 2.72 L Hgb 7.6 L Hct 23.6 L MCV 87.0 MCH 28.0 MCHC 32.2 L RDW 16.8 H Plt Count 243 MPV 7.4 Neut % (Auto) 85.7 H Lymph % (Auto) 4.3 L [place] % (Auto) 9.5 Eos % (Auto) 0.3 Baso % (Auto) 0.2 Neut # (Auto) 10.0 H Lymph # (Auto) 0.5 L Person # (Auto) 1.1 H Eos # (Auto) 0.0 Baso # (Auto) 0.0 Neutrophils % (Manual) Lymphocytes % (Manual) Monocytes % (Manual) Platelet Estimate Hypochromasia (manual) Anisocytosis (manual) Ovalocytes Retic Count Sodium 138 Potassium 5.3 H Chloride 109 H Carbon Dioxide 18 L Anion Gap 16 BUN 66 H Creatinine 4.4 H Est GFR ( Amer) 16 Est GFR (Non-Af Amer) 13 POC Glucose (mg/dL) 155 H Random Glucose 130 H Lactic Acid Calcium 9.1 Magnesium Iron TIBC % Saturation Ferritin Total Bilirubin 0.6 AST 110 H ALT 30 Alkaline Phosphatase 83 Total Protein 6.0 L Albumin 3.3 L Globulin 2.7 Albumin/Globulin Ratio 1.2 Vitamin B12 Folate Procalcitonin Stool Occult Blood Influenza Typ A,B (EIA) Blood Type Antibody Screen ROBI, Poly Interpret Crossmatch Crossmatch IS Only BBK History Checked 10/22/18 10/22/18 10/22/18 09:00 11:00 11:00 WBC RBC Hgb Hct MCV MCH MCHC RDW Plt Count MPV Neut % (Auto) Lymph % (Auto) [place] % (Auto) Eos % (Auto) Baso % (Auto) Neut # (Auto) Lymph # (Auto) Person # (Auto) Eos # (Auto) Baso # (Auto) Neutrophils % (Manual) Lymphocytes % (Manual) Monocytes % (Manual) Platelet Estimate Hypochromasia (manual) Anisocytosis (manual) Ovalocytes Retic Count 4.2 H Sodium Potassium Chloride Carbon Dioxide Anion Gap BUN Creatinine Est GFR ( Amer) Est GFR (Non-Af Amer) POC Glucose (mg/dL) Random Glucose Lactic Acid Calcium Magnesium Iron 66 TIBC 339 % Saturation 19 L Ferritin Total Bilirubin AST ALT Alkaline Phosphatase Total Protein Albumin Globulin Albumin/Globulin Ratio Vitamin B12 Folate Procalcitonin 0.40 Stool Occult Blood Influenza Typ A,B (EIA) Blood Type Antibody Screen ROBI, Poly Interpret Crossmatch Crossmatch IS Only BBK History Checked 10/22/18 10/22/18 10/22/18 11:00 11:11 13:00 WBC RBC Hgb Hct MCV MCH MCHC RDW Plt Count MPV Neut % (Auto) Lymph % (Auto) [place] % (Auto) Eos % (Auto) Baso % (Auto) Neut # (Auto) Lymph # (Auto) Person # (Auto) Eos # (Auto) Baso # (Auto) Neutrophils % (Manual) Lymphocytes % (Manual) Monocytes % (Manual) Platelet Estimate Hypochromasia (manual) Anisocytosis (manual) Ovalocytes Retic Count Sodium Potassium Chloride Carbon Dioxide Anion Gap BUN Creatinine Est GFR ( Amer) Est GFR (Non-Af Amer) POC Glucose (mg/dL) 170 H Random Glucose Lactic Acid Calcium Magnesium Iron TIBC % Saturation Ferritin 19.1 Total Bilirubin AST ALT Alkaline Phosphatase Total Protein Albumin Globulin Albumin/Globulin Ratio Vitamin B12 717 Folate 9.5 Procalcitonin Stool Occult Blood Negative Influenza Typ A,B (EIA) Blood Type Antibody Screen ROBI, Poly Interpret Crossmatch Crossmatch IS Only BBK History Checked 10/22/18 10/22/18 16:29 21:27 WBC RBC Hgb Hct MCV MCH MCHC RDW Plt Count MPV Neut % (Auto) Lymph % (Auto) Person % (Auto) Eos % (Auto) Baso % (Auto) Neut # (Auto) Lymph # (Auto) Person # (Auto) Eos # (Auto) Baso # (Auto) Neutrophils % (Manual) Lymphocytes % (Manual) Monocytes % (Manual) Platelet Estimate Hypochromasia (manual) Anisocytosis (manual) Ovalocytes Retic Count Sodium Potassium Chloride Carbon Dioxide Anion Gap BUN Creatinine Est GFR ( Amer) Est GFR (Non-Af Amer) POC Glucose (mg/dL) 131 H 116 H Random Glucose Lactic Acid Calcium Magnesium Iron TIBC % Saturation Ferritin Total Bilirubin AST ALT Alkaline Phosphatase Total Protein Albumin Globulin Albumin/Globulin Ratio Vitamin B12 Folate Procalcitonin Stool Occult Blood Influenza Typ A,B (EIA) Blood Type Antibody Screen ROBI, Poly Interpret Crossmatch Crossmatch IS Only BBK History Checked Assessment & Plan (1) Anemia Assessment and Plan: work up consistent with CKD and iron deficiency transfusion support PRN ASHLI per renal will start IV iron GI w/u Thank you for this interesting consult. Status: Acute Priority: High
[2018-10-23 05:31] LABS: HEMOGLOBIN 9.7 g/dL (12.0-18.0); MEAN CELL VOLUME 84.9 fl (80.0-94.0); MEAN CORPUSCULAR HEMOGLOBIN 28.1 pg (27.0-31.0); RBC 3.44 Mil/uL (4.40-5.90); RED CELL DISTRIBUTION WIDTH 16.8 % (11.5-14.5); WHITE BLOOD COUNT 11.4 K/uL (4.8-10.8)
[2018-10-23 05:47] LABS: ALB/GLOB RATIO 1.2 (1.0-2.1); ALBUMIN 3.7 g/dL (3.5-5.0); CALCIUM 9.3 mg/dL (8.4-10.2)
[2018-10-23] MEDS: Insulin Lispro (humaLOG) 100 Units/ml Inj SC SCH ×4 (07:07→21:38)
--- NOTE | 2018-10-23 09:36 | CP.PCM.PN ---
Objective - Vital Signs/Intake and Output Vital Signs (last 24 hours): Temp Pulse Resp BP Pulse Ox 98.6 F 68 20 143/72 95 10/23/18 08:00 10/23/18 08:17 10/23/18 08:00 10/23/18 08:20 10/23/18 08:00 - Medications Medications: Current Medications Aspirin (Aspirin) 325 mg PO DAILY [facility] Last Admin: 10/23/18 08:20 Dose: 325 mg Atorvastatin Calcium (Lipitor) 40 mg PO DAILY [facility] Last Admin: 10/23/18 08:18 Dose: 40 mg Furosemide (Lasix) 40 mg IVP BID [facility] Last Admin: 10/23/18 08:20 Dose: 40 mg Cefepime HCl 1 gm/ Sodium (Chloride) 100 mls @ 100 mls/hr IVPB DAILY [facility]; Protocol Last Admin: 10/22/18 12:41 Dose: 100 mls/hr Iron Sucrose 200 mg/ Sodium (Chloride) 110 mls @ 110 mls/hr IVPB DAILY [facility] Stop: 10/28/18 09:01 Last Admin: 10/23/18 08:18 Dose: 110 mls/hr Insulin Human Lispro (Humalog) 0 units SC ACHS [facility]; Protocol Last Admin: 10/23/18 07:07 Dose: Not Given Metoprolol Tartrate (Lopressor) 75 mg PO Q12 [facility] Last Admin: 10/23/18 08:17 Dose: 75 mg Pantoprazole Sodium (Protonix Inj) 40 mg IVP DAILY [facility] Last Admin: 10/23/18 08:18 Dose: 40 mg Sitagliptin Phosphate (Januvia) 25 mg PO DAILY [facility] Last Admin: 10/23/18 08:18 Dose: 25 mg Sodium Bicarbonate (Sodium Bicarbonate Tab) 650 mg PO Q8 [facility] Last Admin: 10/23/18 08:17 Dose: 650 mg - Labs Labs: 10/23/18 04:20 10/23/18 04:20 PT 11.5 Seconds (9.8-13.1) 10/21/18 16:16 INR 1.0 10/21/18 16:16 APTT 23.5 Seconds (25.6-37.1) L 10/21/18 16:16
--- NOTE | 2018-10-23 09:41 | CP.PCM.HP ---
History of Present Illness - History of Present Illness History of Present Illness: H&P for 10/22/18. ( Initially, Pt was seen by me on 10/22/18) CC: CP. 83 y/o M, PMHx: CKD 4, severe , CHF, Pulmonary edema, COPD, Respiratory Failure/intubated on Aug 2018, Metabolic Acidosis, Panceatitis, DM, HTN. Pt came to ER [facility], [place] on 10/21/18 to be evaluated for chest pain, on and off for few days, increasing in the last 2 days [employer], Pt was Indur ER at home with no relief. Pt described Chest pain to be midsternal, tightness/dull type, continue, moderate severity 5:10 non radiated, associated to tachycardia, SOB. Off note: Pt was scheduled to have Cardiac Cath on 10/24/[address] Bhardwaj, procedure was cancelled after Cardiology consultation due to unstable condition. Worsening symptoms: Found anemic, Hgb 6.4, WBC 16.9, K 5.7, serum bicarb on 9, serum lactate in 8, pulmonary congestion. Code sepsis was called. ( Pt had 2-U PRBCs, Blood C-S, Lasix IV and was paced on BIPAP while in the ER. There after, Pt was admitted to ICU. Aggravated factor: Walking. Pt denied: Fever, chills, n/v/d, abdominal pain, urinary symptoms, headache, syncope, sick contact. CXR: B/L interstitial infiltrates. EKG: Sinus tachycardia Present on Admission - Present on Admission Any Indicators Present on Admission: No Review of Systems - Constitutional Constitutional: Weakness - EENT Eyes: Other (negative) Ears: Other (negative) Nose/Mouth/Throat: Other (negative) - Cardiovascular Cardiovascular: Chest Pain, Rapid Heart Rate - Respiratory Respiratory: Dyspnea - Gastrointestinal Gastrointestinal: Other (negative) - Genitourinary Genitourinary: Other (negative) - Musculoskeletal Musculoskeletal: Other (negative) - Integumentary Integumentary: Other (negative) - Neurological Neurological: Other (negative) - Psychiatric Psychiatric: Other (negative) - Endocrine Endocrine: Other (negative) - Hematologic/Lymphatic Hematologic: Other (anemia) Past Patient History - Past Medical History & Family History Past Medical History?: Yes Pertinent Family History: Unknown - Past Social History Smoking Status: Former Smoker (for 40 years.) Alcohol: None Drugs: Denies Home Situation {Lives}: With Family - CARDIAC Hx Cardiac Disorders: Yes Hx Congestive Heart Failure: Yes Hx Hypertension: Yes - PULMONARY Hx Respiratory Disorders: Yes Hx Chronic Obstructive Pulmonary Disease (COPD): Yes Hx Pulmonary Edema: Yes - NEUROLOGICAL Hx Neurological Disorder: Yes (Radiculopathy) Hx Dizziness: Yes - HEENT Hx HEENT Problems: Yes Hx Cataracts: Yes - RENAL Hx Chronic Kidney Disease: Yes (stage 4) - ENDOCRINE/METABOLIC Hx Endocrine Disorders: Yes Hx Diabetes Mellitus Type 2: Yes - HEMATOLOGICAL/ONCOLOGICAL Hx Blood Disorders: Yes Hx Anemia: Yes Hx Blood Transfusions: Yes - INTEGUMENTARY Hx Dermatological Problems: No - MUSCULOSKELETAL/RHEUMATOLOGICAL Hx Musculoskeletal Disorders: Yes Hx Back Pain: Yes Hx Falls: No - GASTROINTESTINAL Hx Gastrointestinal Disorders: Yes Hx Constipation: Yes Hx Gastritis: Yes Hx Pancreatitis: Yes - GENITOURINARY/GYNECOLOGICAL Hx Genitourinary Disorders: Yes (Bladder mass) - PSYCHIATRIC Hx Psychophysiologic Disorder: No Hx Substance Use: No - SURGICAL HISTORY Hx Surgeries: Yes Hx Carotid Endarterectomy: Yes Hx Eye Surgery: Yes (Cataract b/l) - ANESTHESIA Hx Anesthesia: Yes ([place]) Hx Anesthesia Reactions: No Hx Malignant Hyperthermia: No Meds Allergies/Adverse Reactions: Allergies Allergy/AdvReac Type Severity Reaction Status Date / Time No Known Allergies Allergy Verified 09/06/18 15:42 Physical Exam - Constitutional Appears: No Acute Distress - Head Exam Head Exam: NORMAL INSPECTION - Eye Exam Eye Exam: PERRL - ENT Exam ENT Exam: Normal Exam - Neck Exam Neck exam: Positive for: Normal Inspection - Respiratory Exam Respiratory Exam: Decreased Breath Sounds (at bases) Additional comments: Crackles at base on Left - Cardiovascular Exam Cardiovascular Exam: REGULAR RHYTHM, Systolic Murmur - GI/Abdominal Exam GI & Abdominal Exam: Normal Bowel Sounds, Soft - Extremities Exam Extremities exam: Positive for: normal inspection - Back Exam Back exam: NORMAL INSPECTION - Neurological Exam Neurological exam: Alert, Oriented x3 Additional comments: No focal motor sensory deficit. Generalized weakness. - Psychiatric Exam Psychiatric exam: Normal Affect, Normal Mood - Skin Skin Exam: Normal Color, Warm Results - Vital Signs Recent Vital Signs: Last Vital Signs Temp 98.6 F 10/23/18 08:00 Pulse 68 10/23/18 08:17 Resp 20 10/23/18 08:00 BP 143/72 01/07/19 08:20 Pulse Ox 95 10/23/18 08:00 reviewed Johanna - Labs Result Diagrams: 10/24/18 04:20 10/24/18 04:20 Labs: Laboratory Results - last 24 hr 10/21/18 10/22/18 10/22/18 13:00 00:40 09:00 WBC RBC Hgb Hct MCV MCH MCHC RDW Plt Count Retic Count Sodium Potassium Chloride Carbon Dioxide Anion Gap BUN Creatinine Est GFR ( Amer) Est GFR (Non-Af Amer) POC Glucose (mg/dL) Random Glucose Calcium Phosphorus Magnesium Iron TIBC % Saturation Ferritin Total Bilirubin AST ALT Alkaline Phosphatase Total Protein Albumin Globulin Albumin/Globulin Ratio Vitamin B12 Folate Procalcitonin 0.40 Stool Occult Blood Influenza Typ A,B (EIA) Negative for flu a/b Blood Type A POSITIVE Antibody Screen Negative ROBI, Poly Interpret Negative Crossmatch See Detail Crossmatch IS Only See Detail BBK History Checked Patient has bt 10/22/18 10/22/18 10/22/18 11:00 11:00 11:00 WBC RBC Hgb Hct MCV MCH MCHC RDW Plt Count Retic Count 4.2 H Sodium Potassium Chloride Carbon Dioxide Anion Gap BUN Creatinine Est GFR ( Amer) Est GFR (Non-Af Amer) POC Glucose (mg/dL) Random Glucose Calcium Phosphorus Magnesium Iron 66 TIBC 339 % Saturation 19 L Ferritin 19.1 Total Bilirubin AST ALT Alkaline Phosphatase Total Protein Albumin Globulin Albumin/Globulin Ratio Vitamin B12 717 Folate 9.5 Procalcitonin Stool Occult Blood Influenza Typ A,B (EIA) Blood Type Antibody Screen ROBI, Poly Interpret Crossmatch Crossmatch IS Only BBK History Checked 10/22/18 10/22/18 10/22/18 11:11 13:00 16:29 WBC RBC Hgb Hct MCV MCH MCHC RDW Plt Count Retic Count Sodium Potassium Chloride Carbon Dioxide Anion Gap BUN Creatinine Est GFR ( Amer) Est GFR (Non-Af Amer) POC Glucose (mg/dL) 170 H 131 H Random Glucose Calcium Phosphorus Magnesium Iron TIBC % Saturation Ferritin Total Bilirubin AST ALT Alkaline Phosphatase Total Protein Albumin Globulin Albumin/Globulin Ratio Vitamin B12 Folate Procalcitonin Stool Occult Blood Negative Influenza Typ A,B (EIA) Blood Type Antibody Screen ROBI, Poly Interpret Crossmatch Crossmatch IS Only BBK History Checked 10/22/18 10/23/18 10/23/18 21:27 04:20 04:20 WBC 11.4 H RBC 3.44 L Hgb 9.7 L D Hct 29.2 L MCV 84.9 D MCH 28.1 MCHC 33.0 RDW 16.8 H Plt Count 232 Retic Count Sodium 137 Potassium 4.8 Chloride 103 Carbon Dioxide 24 Anion Gap 15 BUN 77 H Creatinine 4.4 H Est GFR ( Amer) 16 Est GFR (Non-Af Amer) 13 POC Glucose (mg/dL) 116 H Random Glucose 127 H Calcium 9.3 Phosphorus 3.6 Magnesium 1.9 Iron TIBC % Saturation Ferritin Total Bilirubin 0.6 AST 84 H D ALT 42 Alkaline Phosphatase 93 Total Protein 6.7 Albumin 3.7 Globulin 3.0 Albumin/Globulin Ratio 1.2 Vitamin B12 Folate Procalcitonin Stool Occult Blood Influenza Typ A,B (EIA) Blood Type Antibody Screen ROBI, Poly Interpret Crossmatch Crossmatch IS Only BBK History Checked 10/23/18 07:05 WBC RBC Hgb Hct MCV MCH MCHC RDW Plt Count Retic Count Sodium Potassium Chloride Carbon Dioxide Anion Gap BUN Creatinine Est GFR ( Amer) Est GFR (Non-Af Amer) POC Glucose (mg/dL) 132 H Random Glucose Calcium Phosphorus Magnesium Iron TIBC % Saturation Ferritin Total Bilirubin AST ALT Alkaline Phosphatase Total Protein Albumin Globulin Albumin/Globulin Ratio Vitamin B12 Folate Procalcitonin Stool Occult Blood Influenza Typ A,B (EIA) Blood Type Antibody Screen ROBI, Poly Interpret Crossmatch Crossmatch IS Only BBK History Checked reviewed J.P. - EKG Data EKG comments: reviewed J.P. 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 Assessment and Plan: severe Status: Chronic Priority: High (3) PNA (pneumonia) Status: Acute Priority: High Comment: f/u CT Chest (4) COPD (chronic obstructive pulmonary disease) Status: Chronic Priority: High (5) UTI (urinary tract infection) Status: Acute Priority: High Comment: f/u -C-S (6) [id number]-fr-[id number] kidney injury Status: Chronic Priority: High (7) Anemia Status: Acute Priority: High Comment: CKD (8) Aortic stenosis Status: Chronic Priority: High (9) Hyperglycemia Status: Acute Priority: High (10) DMII (diabetes mellitus, type 2) Status: Chronic Priority: Medium (11) HTN (hypertension) Status: Chronic Priority: Medium (12) Generalized weakness Status: Chronic Priority: High - Assessment and Plan (Free Text) Plan: F/U CT Chest, U C-S, Continue O2 NC, Cefepime, Lasix, Lipitor, Protonix, Lopressor, Humalog, Iron Sucrose, Sodium Bicarbonate and rest of tx. Hematology, Renal and Cardiology consult appreciated. Intensive care time: 60 minutes. - Date & Time Date: 10/22/18 Time: 10:50
[2018-10-23] MEDS: Cefepime 1 GM in Sodium Chloride 0.9% 100 ML IVPB SCH (10:18)
--- NOTE | 2018-10-23 15:03 | CP.PCM.PN ---
Subjective - Date & Time of Evaluation Date of Evaluation: 10/23/18 Time of Evaluation: 14:57 - Subjective Subjective: RENAL s: seen and examined no complaints o: gen: nad sclera: anicteric op: clear neck: supple no thyromegaly cv:+s1+s2 no rub lungs: cta b/l abd: soft nt nd no organomegaly ext: no edema neuro: a+ox3 no asterixis psych: nml affect skin: no rash a/p: KENJI/CKD stage 4/pulm edema/anemia/chf/dm/acidosis monitor UOP renal fxn stable procrit 22200 give n on10/22 f/u heme onc work up - started on iv iron volume status looks improved - if CT chest today is w/out any significant pulm edema would consider holding diuretic cont po bicarb Objective - Vital Signs/Intake and Output Vital Signs (last 24 hours): Temp Pulse Resp BP Pulse Ox 97.7 F 67 15 98/56 L 98 10/23/18 12:00 10/23/18 12:00 10/23/18 12:00 10/23/18 12:00 10/23/18 12:00 Intake and Output: 10/23/18 10/23/18 06:59 18:59 Intake Total 200 Output Total 900 Balance -700 - Medications Medications: Current Medications Aspirin (Aspirin) 325 mg PO DAILY [facility] Last Admin: 10/23/18 08:20 Dose: 325 mg Atorvastatin Calcium (Lipitor) 40 mg PO DAILY [facility] Last Admin: 10/23/18 08:18 Dose: 40 mg Furosemide (Lasix) 40 mg IVP BID [facility] Last Admin: 10/23/18 08:20 Dose: 40 mg Cefepime HCl 1 gm/ Sodium (Chloride) 100 mls @ 100 mls/hr IVPB DAILY [facility]; Protocol Last Admin: 10/23/18 10:18 Dose: 100 mls/hr Iron Sucrose 200 mg/ Sodium (Chloride) 110 mls @ 110 mls/hr IVPB DAILY [facility] Stop: 10/28/18 09:01 Last Admin: 10/23/18 08:18 Dose: 110 mls/hr Insulin Human Lispro (Humalog) 0 units SC ACHS [facility]; Protocol Last Admin: 10/23/18 14:19 Dose: 2 unit Metoprolol Tartrate (Lopressor) 75 mg PO Q12 [facility] Last Admin: 10/23/18 08:17 Dose: 75 mg Pantoprazole Sodium (Protonix Inj) 40 mg IVP DAILY [facility] Last Admin: 10/23/18 08:18 Dose: 40 mg Sitagliptin Phosphate (Januvia) 25 mg PO DAILY [facility] Last Admin: 10/23/18 08:18 Dose: 25 mg Sodium Bicarbonate (Sodium Bicarbonate Tab) 650 mg PO Q8 [facility] Last Admin: 10/23/18 08:17 Dose: 650 mg - Labs Labs: 10/23/18 04:20 10/23/18 04:20 PT 11.5 Seconds (9.8-13.1) 10/21/18 16:16 INR 1.0 10/21/18 16:16 APTT 23.5 Seconds (25.6-37.1) L 10/21/18 16:16
--- NOTE | 2018-10-23 15:17 | CT ---
Date of service: 10/23/2018 PROCEDURE: CT Chest without contrast HISTORY: CHF, PNA COMPARISON: Plain radiograph from 10/21/2018 TECHNIQUE: Contiguous axial images were obtained through the chest without intravenous contrast enhancement. Sagittal and coronal reconstructions were performed. Radiation dose: Total exam DLP = 296.78 mGy-cm. This CT exam was performed using one or more of the following dose reduction techniques: Automated exposure control, adjustment of the mA and/or kV according to patient size, and/or use of iterative reconstruction technique. FINDINGS: LUNGS: There is paraseptal emphysema in the upper lobes, worse on the left. There is scattered centrilobular emphysema in the upper lobes. There is consolidation with ground-glass components in the posterior segment of the right upper lobe and in the posterior right mid lung. There is subsegmental atelectasis in the lower lobes. There are no endobronchial lesions. MEDIASTINUM: Unremarkable thoracic aorta. No aneurysm. Normal sized heart. Main pulmonary artery unremarkable. No vascular congestion. No lymphadenopathy. There are aortic atherosclerotic calcifications present. PLEURA: Small pleural effusions. No pneumothorax. BONES: No fracture. No destructive lesion. UPPER ABDOMEN: There is a 2.1 cm simple cyst in the right hepatic lobe. There is a solitary calcified gallstone. There is mild diffuse atrophy of the pancreas. There is a solitary subcentimeter adenoma in the right adrenal gland and in the left adrenal gland. Incompletely imaged are parapelvic cyst versus hydronephrosis in the visualized right kidney. There is a 7 mm nonobstructing stone versus calcification in a calyx/cyst in the right upper pole. OTHER FINDINGS: None. IMPRESSION: 1. Multifocal pneumonia versus pulmonary edema involving the posterior segments of the right upper lobe and in the posterior right middle lobe. Follow-up to resolution is advised. 2. Small bilateral pleural effusions. 3. Incompletely imaged parapelvic cyst versus hydronephrosis and 7 and normal obstructing stone versus calcification in calyx/cyst in the right upper pole. Correlation with renal ultrasound is advised.
--- NOTE | 2018-10-23 15:32 | CP.PCM.PN ---
Subjective - Date & Time of Evaluation Date of Evaluation: 10/23/18 Time of Evaluation: 11:00 - Subjective Subjective: F/U CHF, PNA no AD, no SOB Objective - Vital Signs/Intake and Output Vital Signs (last 24 hours): Temp Pulse Resp BP Pulse Ox 97.7 F 67 15 98/56 L 98 10/23/18 12:00 10/23/18 12:00 10/23/18 12:00 10/23/18 12:00 10/23/18 12:00 Intake and Output: 10/23/18 10/23/18 06:59 18:59 Intake Total 200 Output Total 900 Balance -700 - Medications Medications: Current Medications Aspirin (Aspirin) 325 mg PO DAILY [facility] Last Admin: 10/23/18 08:20 Dose: 325 mg Atorvastatin Calcium (Lipitor) 40 mg PO DAILY [facility] Last Admin: 10/23/18 08:18 Dose: 40 mg Furosemide (Lasix) 40 mg IVP BID [facility] Last Admin: 10/23/18 08:20 Dose: 40 mg Cefepime HCl 1 gm/ Sodium (Chloride) 100 mls @ 100 mls/hr IVPB DAILY [facility]; Protocol Last Admin: 10/23/18 10:18 Dose: 100 mls/hr Iron Sucrose 200 mg/ Sodium (Chloride) 110 mls @ 110 mls/hr IVPB DAILY [facility] Stop: 10/28/18 09:01 Last Admin: 10/23/18 08:18 Dose: 110 mls/hr Insulin Human Lispro (Humalog) 0 units SC ACHS [facility]; Protocol Last Admin: 10/23/18 14:19 Dose: 2 unit Metoprolol Tartrate (Lopressor) 75 mg PO Q12 [facility] Last Admin: 10/23/18 08:17 Dose: 75 mg Pantoprazole Sodium (Protonix Inj) 40 mg IVP DAILY [facility] Last Admin: 10/23/18 08:18 Dose: 40 mg Sitagliptin Phosphate (Januvia) 25 mg PO DAILY [facility] Last Admin: 10/23/18 08:18 Dose: 25 mg Sodium Bicarbonate (Sodium Bicarbonate Tab) 650 mg PO Q8 [facility] Last Admin: 10/23/18 08:17 Dose: 650 mg - Labs Labs: 10/23/18 04:20 10/23/18 04:20 PT 11.5 Seconds (9.8-13.1) 10/21/18 16:16 INR 1.0 10/21/18 16:16 APTT 23.5 Seconds (25.6-37.1) L 10/21/18 16:16 - Constitutional Appears: No Acute Distress - Head Exam Head Exam: NORMAL INSPECTION - Eye Exam Eye Exam: PERRL - ENT Exam ENT Exam: Normal Exam - Neck Exam Neck Exam: Normal Inspection - Respiratory Exam Respiratory Exam: Decreased Breath Sounds (at bases) Additional comments: few Crackles L base - Cardiovascular Exam Cardiovascular Exam: REGULAR RHYTHM, Murmur (systolic) - GI/Abdominal Exam GI & Abdominal Exam: Soft, Normal Bowel Sounds - Extremities Exam Extremities Exam: Normal Inspection - Back Exam Back Exam: NORMAL INSPECTION - Neurological Exam Neurological Exam: Alert, Oriented x3 Additional comments: No focal motor/sensory deficit, generalized weakness. - Psychiatric Exam Psychiatric exam: Normal Mood - Skin Skin Exam: Normal Color, Warm Assessment and Plan (1) Chest pain Status: Acute (2) 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 Status: Chronic (3) PNA (pneumonia) Status: Acute (4) COPD (chronic obstructive pulmonary disease) Status: Chronic (5) UTI (urinary tract infection) Status: Acute (6) [id number] kidney injury Status: Chronic (7) Anemia Status: Acute (8) Aortic stenosis Status: Chronic (9) Hyperglycemia Status: Acute (10) DMII (diabetes mellitus, type 2) Status: Chronic (11) HTN (hypertension) Status: Chronic (12) Generalized weakness Status: Chronic - Assessment and Plan (Free Text) Plan: R IJ TLC was removed, f/u CT Chest, continue current Tx Intensive care unit time: 40 minutes.
--- NOTE | 2018-10-23 18:50 | CP.PCM.PN ---
Subjective - Date & Time of Evaluation Date of Evaluation: 10/23/18 Time of Evaluation: 17:30 - Subjective Subjective: patient feels much better. He denies chest pain or dsypnea. Objective - Vital Signs/Intake and Output Vital Signs (last 24 hours): Temp Pulse Resp BP Pulse Ox 97.5 F L 72 13 113/46 L 100 10/23/18 16:00 10/23/18 16:00 10/23/18 16:00 10/23/18 16:00 10/23/18 16:00 Intake and Output: 10/23/18 10/23/18 06:59 18:59 Intake Total 200 Output Total 900 Balance -700 - Medications Medications: Current Medications Aspirin (Aspirin) 325 mg PO DAILY [facility] Last Admin: 10/23/18 08:20 Dose: 325 mg Atorvastatin Calcium (Lipitor) 40 mg PO DAILY [facility] Last Admin: 10/23/18 08:18 Dose: 40 mg Furosemide (Lasix) 40 mg IVP BID [facility] Last Admin: 10/23/18 08:20 Dose: 40 mg Cefepime HCl 1 gm/ Sodium (Chloride) 100 mls @ 100 mls/hr IVPB DAILY [facility]; Protocol Last Admin: 10/23/18 10:18 Dose: 100 mls/hr Iron Sucrose 200 mg/ Sodium (Chloride) 110 mls @ 110 mls/hr IVPB DAILY [facility] Stop: 10/28/18 09:01 Last Admin: 10/23/18 08:18 Dose: 110 mls/hr Insulin Human Lispro (Humalog) 0 units SC ACHS [facility]; Protocol Last Admin: 10/23/18 14:19 Dose: 2 unit Metoprolol Tartrate (Lopressor) 75 mg PO Q12 [facility] Last Admin: 10/23/18 08:17 Dose: 75 mg Pantoprazole Sodium (Protonix Inj) 40 mg IVP DAILY [facility] Last Admin: 10/23/18 08:18 Dose: 40 mg Sitagliptin Phosphate (Januvia) 25 mg PO DAILY [facility] Last Admin: 10/23/18 08:18 Dose: 25 mg Sodium Bicarbonate (Sodium Bicarbonate Tab) 650 mg PO Q8 [facility] Last Admin: 10/23/18 08:17 Dose: 650 mg - Labs Labs: 10/23/18 04:20 10/23/18 04:20 PT 11.5 Seconds (9.8-13.1) 10/21/18 16:16 INR 1.0 10/21/18 16:16 APTT 23.5 Seconds (25.6-37.1) L 10/21/18 16:16 - Constitutional Appears: Non-toxic - Head Exam Head Exam: NORMAL INSPECTION - Eye Exam Eye Exam: Normal appearance - ENT Exam ENT Exam: Mucous Membranes Moist - Neck Exam Neck Exam: Full ROM - Respiratory Exam Respiratory Exam: NORMAL BREATHING PATTERN - Cardiovascular Exam Cardiovascular Exam: REGULAR RHYTHM, Murmur - GI/Abdominal Exam GI & Abdominal Exam: Normal Bowel Sounds - Rectal Exam Rectal Exam: Deferred - Extremities Exam Extremities Exam: absent: Pedal Edema - Back Exam Back Exam: NORMAL INSPECTION - Neurological Exam Neurological Exam: Alert - Psychiatric Exam Psychiatric exam: Normal Affect - Skin Skin Exam: Normal Color Assessment and Plan (1) 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 Assessment & Plan: imrpoved on medical therapy. continue current management Status: Chronic (2) Anemia Status: Acute (3) Aortic stenosis Assessment & Plan: will need evantual workup, but willnot perform cardaic cath at this time. discussed with patient and family Status: Chronic (4) HTN (hypertension) Assessment & Plan: blood pressure control Status: Chronic
--- NOTE | 2018-10-24 03:40 | PN ---
DATE: 10/23/2018 LOCATION: The patient is in ICU, bed 423. TIME SPENT: 35 minutes. The patient is seen and evaluated at the bedside. Past medical, surgical, family, and social history reviewed. Case discussed in multidisciplinary ICU rounds this morning. SUBJECTIVE: An 83-year-old male with history significant for chronic kidney disease stage 4, severe aortic stenosis, congestive heart failure, recurrent pulmonary edema, chronic obstructive pulmonary disease, respiratory failure, intubated once in 09/05/2018, pancreatitis, diabetes mellitus type 2 and hypertension, admitted through emergency room on 10/21/2018 complaining of exertional dyspnea associated with chest pain on and off for few days prior to the admission refractory to sublingual nitroglycerin. On admission, the patient was noted to have hemoglobin of 6.4, WBC 16.9, potassium 5.7, serum bicarbonate 9, serum lactate 8. The patient was placed on BiPAP, given 2 units of packed red blood cells with a subsequent improvement in hemoglobin. Currently remains hemodynamically stable, less short of breath. No further episode of chest pain. PHYSICAL EXAMINATION: VITAL SIGNS: Temperature 97.7, heart rate 67, blood pressure 98/56, mean arterial pressure 70, respiratory rate 15, oxygen saturation 98% on room air. Intake 1749, output 2100, negative balance 351. Weight 159 pounds. HEAD, EYES, EARS, NOSE, AND THROAT: Pupils reactive. Conjunctivae pale. Sclerae white. NECK: Supple. CHEST: Bilateral breath sounds diminished in intensity. HEART: Rhythm regular. S1, S2 normal. Soft systolic murmur at the left sternal border. ABDOMEN: Bowel sounds present. Soft. EXTREMITIES: Trace edema. NEUROLOGIC: Alert and oriented to name, place, and time. No cranial nerve deficit. No motor or sensory impairment. MEDICATIONS: Include aspirin 325 mg p.o. daily, Lipitor 40 mg p.o. daily, cefepime 1 g IV daily, Lasix 40 mg IV b.i.d., Accu-Chek with regular insulin coverage, iron infusion 200 mg IV daily, Lopressor 75 mg every 12 hours, Protonix 40 mg IV daily, Januvia 25 mg p.o. daily, sodium bicarbonate 650 mg p.o. every 8 hours. LABORATORY DATA: WBC 11.4, hemoglobin 9.7, hematocrit 29.2, platelet count 232, retic count of 4.2. PT 11.5, INR 1, PTT 23.5. D-dimer 2433. SMA-7: Sodium 137, potassium 4.8, chloride 102, CO2 of 24, blood urea nitrogen 77, creatinine 4.4, random glucose 132, magnesium 1.9, phosphorus 3.6, calcium 9.3. Total bilirubin 0.46, AST 84, ALT 42, alkaline phosphatase 93, total protein 6.7, albumin 3.7. Vitamin B12 of 717, folate 9.1. Urinalysis, rbc 17, wbc few, stool occult blood negative. Serology, influenza A and B negative. Microbiology: Blood culture no growth reported. CT chest done this morning shows paraseptal emphysema in the upper lobes worse on the left, scattered centrilobular emphysema in the upper lobes, consolidation with the ground glass components in the posterior segments of the right upper lobe and in the posterior right mid lung, subsegmental atelectasis in the lower lobes. No endobronchial lesions, small pleural effusion, no pneumothorax, no fractured ribs, a 2.1 cm simple cyst in the right hepatic lobe, solitary subcentimeter adenoma in the right adrenal gland and in the left adrenal gland consistent with multifocal pneumonia versus pulmonary edema. IMPRESSION: 1. Neurologic: Alert and awake, oriented to name, place, and time. 2. Pulmonary: Bilateral pulmonary edema versus pneumonia with bilateral pleural effusion secondary to hypoxia, anemia, and congestive heart failure. 3. Cardiac: Severe aortic stenosis, history of heart failure related to valvular heart disease, seen by cardiology consult. Awaiting for cardiac catheterization once the patient becomes hemodynamically and clinically stable. 4. Renal: [id number] renal failure stage IV, seen by nephrology consult, noted recommendation. 5. Gastrointestinal: Anemia secondary to chronic kidney disease. Stool for occult blood negative. Seen by GI consult. No further intervention planned. 6. Endocrine: No history of thyroid disease. Blood sugar 127 mg/dL. Infectious disease suspected pneumonia, on cefepime 1 g IV daily. Keep head of bed 30 degrees up. Deep venous thrombosis prophylaxis. Closely monitor for further respiratory compromise. Ramiro Jackson MD [facility] # [id number]
[2018-10-24 05:48] LABS: HEMOGLOBIN 10.1 g/dL (12.0-18.0); MEAN CORPUSCULAR HEMOGLOBIN 28.5 pg (27.0-31.0); MEAN CORPUSCULAR HGB CONC 33.5 g/dL (33.0-37.0); RBC 3.54 Mil/uL (4.40-5.90); RED CELL DISTRIBUTION WIDTH 16.8 % (11.5-14.5); WHITE BLOOD COUNT 10.2 K/uL (4.8-10.8)
[2018-10-24 06:28] LABS: ALB/GLOB RATIO 1.2 (1.0-2.1); ALBUMIN 3.5 g/dL (3.5-5.0); CALCIUM 8.8 mg/dL (8.4-10.2)
[2018-10-24] MEDS: Insulin Lispro (humaLOG) 100 Units/ml Inj SC SCH ×4 (06:44→21:08)
--- NOTE | 2018-10-24 07:31 | CP.CCUPN ---
CCU Subjective - Physician Review Events Since Last Encounter (Free Text): 10/24/18 16:43 The patient was Seen/interviewed and examined by me at the bedside during ICU round, Medical records reviewed and Management issues were discussed and formulated with the house staff. Events reviewed Mr Benavides is 83 Years old Former smoker Male with PMHx of sever , HTN, CHF, COPD, Diabetes, Gastritis, Anemia, Pancreatitis and Chronic Kidney Disease Who presented to the Emergency department with complaint of on/off left sided CP for two days. Pain is dull, No radiation, not associated with breathing. In the ER he was evaluated by ICU, CXR showing pulmonart congestion, Pt was anemic , Hb 6.5 and leukocytosis , WBC 16 K, serum bicarb was very low 9, and serum lactate was high 8, code sepsis was also called, blood culture sent, started antibiotics in ER and also received two units of blood transfusion. Patint on IV Lasix, physical exam less fluid overload Patient feels well and is hemodynamically stable Breathing unlabored, on room air O2 sat 97-100%. Denies any chest pain, SOB or Palpitations Afebrile, On IV Cefepjime for UTI NSR on the monitor Last 24H I&O 200/3200 This morning labs revealed improved Leucocytosis, Stable H/H, slight worsening renal function BUN/Cr up to 94/4.3 CCU Objective - Vital Signs / Intake & Output Vital Signs (Last 4 hours): Vital Signs Temp Pulse Resp BP Pulse Ox 10/24/18 06:00 67 14 143/74 97 10/24/18 04:00 97.9 F 67 15 152/71 H 97 Intake and Output (Last 8hrs): Intake & Output 10/23/18 10/24/18 10/24/18 22:59 06:59 14:59 Intake Total 0 Output Total 900 1400 Balance -900 -1400 Weight 161 lb 12.8 oz Intake: IV 0 Oral 0 Output: Urine 900 1400 Urethral (Garza) 900 1400 Other: # Bowel Movements 1 - Physical Exam Head: Positive for: Atraumatic, Normocephalic Pupils: Positive for: PERRL. Negative for: Sluggish Extroacular Muscles: Positive for: EOMI. Negative for: Gaze Palsy Conjunctiva: Positive for: Normal. Negative for: Injected, Icteric Pharnyx: Positive for: Normal Nose (External): Positive for: Atraumatic Nose (Internal): Positive for: Normal Inspection Neck: Positive for: Normal Range of Motion, Trachea Midline. Negative for: Meningeal Signs, MIDLINE TENDERNESS, Paraspinal Tenderness, JVD, Lymphadenopathy, Bruit, Other Respiratory/Chest: Positive for: Clear to Auscultation, Good Air Exchange. Negative for: Respiratory Distress, Accessory Muscle Use, Wheezes, Rales, Rhonchi Cardiovascular: Positive for: Regular Rate and Rhythm, Normal S1, S2, Peripheal Pulses Present. Negative for: Murmurs Abdomen: Positive for: Normal Bowel Sounds. Negative for: Tenderness, Distention Neurological: Positive for: GCS=15, CN II-XII Intact Psychiatric: Positive for: Alert, Oriented x 3 - Medications Active Medications: Active Medications Generic Name Dose Route Start Last Admin Trade Name Freq PRN Reason Stop Dose Admin Aspirin 325 mg 10/22/18 09:00 10/23/18 08:20 Aspirin PO 325 mg DAILY [facility] Administration Atorvastatin Calcium 40 mg 10/22/18 09:00 10/23/18 08:18 Lipitor PO 40 mg DAILY [facility] Administration Furosemide 40 mg 10/22/18 09:00 10/23/18 19:40 Lasix IVP 40 mg BID [facility] Administration Cefepime HCl 1 gm/ Sodium 100 mls @ 100 mls/hr 10/21/18 17:30 10/23/18 10:18 Chloride IVPB 100 mls/hr DAILY [facility] Administration Protocol Iron Sucrose 200 mg/ Sodium 110 mls @ 110 mls/hr 10/23/18 09:00 10/23/18 08:18 Chloride IVPB 10/28/18 09:01 110 mls/hr DAILY [facility] Administration Insulin Human Lispro 0 units 10/22/18 07:30 10/24/18 06:44 Humalog SC Not Given ACHS [facility] Protocol Metoprolol Tartrate 75 mg 10/21/18 21:00 10/23/18 21:10 Lopressor PO 75 mg Q12 [facility] Administration Pantoprazole Sodium 40 mg 10/22/18 11:15 10/23/18 08:18 Protonix Inj IVP 40 mg DAILY [facility] Administration Sitagliptin Phosphate 25 mg 10/22/18 09:00 10/23/18 08:18 Januvia PO 25 mg DAILY [facility] Administration Sodium Bicarbonate 650 mg 10/22/18 17:00 10/24/18 01:24 Sodium Bicarbonate Tab PO 650 mg Q8 [facility] Administration - Patient Studies Lab Studies: Microbiology Studies 10/21/18 08:40 MRSA Culture (Admit) - Final Naris MRSA NOT DETECTED 10/21/18 16:16 Blood Culture - Preliminary Blood-Venous NO GROWTH AFTER 48 HOURS Lab Studies 10/24/18 10/24/18 10/24/18 Range/Units 05:55 04:20 04:20 WBC 10.2 (4.8-10.8) K/uL RBC 3.54 L (4.40-5.90) Mil/uL Hgb 10.1 L (12.0-18.0) g/dL Hct 30.1 L (35.0-51.0) % MCV 85.0 (80.0-94.0) fl MCH 28.5 (27.0-31.0) pg MCHC 33.5 (33.0-37.0) g/dL RDW 16.8 H (11.5-14.5) % Plt Count 209 (130-400) K/uL Sodium 136 (132-148) mmol/l Potassium 4.3 (3.6-5.0) MMOL/L Chloride 99 (98-107) mmol/L Carbon Dioxide 23 (22-30) mmol/L Anion Gap 18 (10-20) BUN 94 H (9-20) mg/dl Creatinine 4.3 H (0.8-1.5) mg/dl Est GFR ( Amer) 16 Est GFR (Non-Af Amer) 13 POC Glucose (mg/dL) 133 H (65-110) mg/dL Random Glucose 142 H (75-110) mg/dL Calcium 8.8 (8.4-10.2) mg/dL Total Bilirubin 0.3 (0.2-1.3) mg/dl AST 58 (17-59) U/L ALT 34 (21-72) U/L Alkaline Phosphatase 83 (38-126) U/L Total Protein 6.4 (6.3-8.2) G/DL Albumin 3.5 (3.5-5.0) g/dL Globulin 2.9 (2.2-3.9) gm/dL Albumin/Globulin Ratio 1.2 (1.0-2.1) 01/05/0410/23/18 10/23/18 Range/Units 21:13 16:40 11:09 WBC (4.8-10.8) K/uL RBC (4.40-5.90) Mil/uL Hgb (12.0-18.0) g/dL Hct (35.0-51.0) % MCV (80.0-94.0) fl MCH (27.0-31.0) pg MCHC (33.0-37.0) g/dL RDW (11.5-14.5) % Plt Count (130-400) K/uL Sodium (132-148) mmol/l Potassium (3.6-5.0) MMOL/L Chloride (98-107) mmol/L Carbon Dioxide (22-30) mmol/L Anion Gap (10-20) BUN (9-20) mg/dl Creatinine (0.8-1.5) mg/dl Est GFR ( Amer) Est GFR (Non-Af Amer) POC Glucose (mg/dL) 126 H 169 H 213 H (65-110) mg/dL Random Glucose (75-110) mg/dL Calcium (8.4-10.2) mg/dL Total Bilirubin (0.2-1.3) mg/dl AST (17-59) U/L ALT (21-72) U/L Alkaline Phosphatase (38-126) U/L Total Protein (6.3-8.2) G/DL Albumin (3.5-5.0) g/dL Globulin (2.2-3.9) gm/dL Albumin/Globulin Ratio (1.0-2.1) Laboratory Results - last 24 hr 10/23/18 10/23/18 10/23/18 11:09 16:40 21:13 WBC RBC Hgb Hct MCV MCH MCHC RDW Plt Count Sodium Potassium Chloride Carbon Dioxide Anion Gap BUN Creatinine Est GFR ( Amer) Est GFR (Non-Af Amer) POC Glucose (mg/dL) 213 H 169 H 126 H Random Glucose Calcium Total Bilirubin AST ALT Alkaline Phosphatase Total Protein Albumin Globulin Albumin/Globulin Ratio 10/24/18 10/24/18 10/24/18 04:20 04:20 05:55 WBC 10.2 RBC 3.54 L Hgb 10.1 L Hct 30.1 L MCV 85.0 MCH 28.5 MCHC 33.5 RDW 16.8 H Plt Count 209 Sodium 136 Potassium 4.3 Chloride 99 Carbon Dioxide 23 Anion Gap 18 BUN 94 H Creatinine 4.3 H Est GFR ( Amer) 16 Est GFR (Non-Af Amer) 13 POC Glucose (mg/dL) 133 H Random Glucose 142 H Calcium 8.8 Total Bilirubin 0.3 AST 58 ALT 34 Alkaline Phosphatase 83 Total Protein 6.4 Albumin 3.5 Globulin 2.9 Albumin/Globulin Ratio 1.2 Radiology Impressions: Radiology Impressions Chest CT 10/23/18 11:31 IMPRESSION: 1. Multifocal pneumonia versus pulmonary edema involving the posterior segments of the right upper lobe and in the posterior right middle lobe. Follow-up to resolution is advised. 2. Small bilateral pleural effusions. 3. Incompletely imaged parapelvic cyst versus hydronephrosis and 7 and normal obstructing stone versus calcification in calyx/cyst in the right upper pole. Correlation with renal ultrasound is advised. Fingerstick Blood Sugar Results: 133 Review of Systems - Constitutional Constitutional: absent: Chills, Sweats, Weakness, Malaise - Cardiovascular Cardiovascular: absent: Acrocyanosis, Chest Pain, Chest Pain at Rest, Chest Pain with Activity, Claudication, Diaphoresis - Respiratory Respiratory: absent: Cough, Dyspnea, Hemoptysis, Dyspnea on Exertion, Wheezing, Snoring, Stridor Critical Care Progress Note - Extremities/Vascular Does the Patient have a Central Venous Catheter?: No Does the Patient need a Central Venous Catheter?: No Does the Patient have a Garza Catheter?: Yes Does the Patient need a Garza Catheter?: No (Will discontinue today) - Nutrition Nutrition: Nutrition Category Date Time Status Heart Healthy Diet [DIET] Diets 10/21/18 Breakfast Active Assessment/Plan (1) Acute pulmonary edema Current Visit: Yes Status: Acute Priority: High Comment: Switching IV Lasix to 40 mg PO BID, Strict I&O, daily Wt Strict I&O, daily Wt Negative fluid balance (2) NSTEMI (non-ST elevated myocardial infarction) Current Visit: Yes Status: Acute Priority: High Comment: Continue medical therapy for now, possible cardaic cath out patient. Cardiology Eval appretiated. (3) Sepsis associated hypotension Current Visit: Yes Status: Acute Priority: High Comment: Afebrile, On IV Cefepjime for UTI This morning labs revealed improved Leucocytosis (4) COPD (chronic obstructive pulmonary disease) Current Visit: Yes Status: Chronic Priority: High (5) Acute renal failure (ARF) Current Visit: Yes Status: Acute Priority: High
[2018-10-24] MEDS: Cefepime 1 GM in Sodium Chloride 0.9% 100 ML IVPB SCH (09:18)
--- NOTE | 2018-10-24 11:45 | CP.PCM.PN ---
Subjective - Date & Time of Evaluation Date of Evaluation: 10/24/18 Time of Evaluation: 11:37 - Subjective Subjective: renal follow up note s: seen and examined no complaints o: gen: nad sclera: anicteric op: clear neck: supple no jvd cv:+s1+s2 no rub lungs: cta b/l abd: soft nt nd no organomegaly ext: no edema neuro: a+ox3 no asterixis psych: nml affect skin: no rash a/p: KENJI/CKD stage 4/pulm edema/anemia/chf/dm/acidosis monitor UOP cr stable ok to remove le catheter renal fxn stable procrit [id number] subcut & iv iron volume status looks improved agree with holding diuretics cont po bicarb Objective - Vital Signs/Intake and Output Vital Signs (last 24 hours): Temp Pulse Resp BP Pulse Ox 97.7 F 71 32 H 132/57 L 93 L 10/24/18 08:00 10/24/18 10:00 10/24/18 10:00 10/24/18 10:00 10/24/18 10:00 Intake and Output: 10/24/18 10/24/18 06:59 18:59 Intake Total 0 100 Output Total 2300 Balance -2300 100 - Medications Medications: Current Medications Aspirin (Aspirin) 325 mg PO DAILY [facility] Last Admin: 10/23/18 08:20 Dose: 325 mg Atorvastatin Calcium (Lipitor) 40 mg PO DAILY [facility] Last Admin: 10/24/18 09:19 Dose: 40 mg Cefepime HCl 1 gm/ Sodium (Chloride) 100 mls @ 100 mls/hr IVPB DAILY [facility]; Protocol Last Admin: 10/24/18 09:18 Dose: 100 mls/hr Iron Sucrose 200 mg/ Sodium (Chloride) 110 mls @ 110 mls/hr IVPB DAILY [facility] Stop: 10/28/18 09:01 Last Admin: 10/23/18 08:18 Dose: 110 mls/hr Insulin Human Lispro (Humalog) 0 units SC ACHS [facility]; Protocol Last Admin: 10/24/18 06:44 Dose: Not Given Metoprolol Tartrate (Lopressor) 75 mg PO Q12 [facility] Last Admin: 10/23/18 21:10 Dose: 75 mg Pantoprazole Sodium (Protonix Inj) 40 mg IVP DAILY [facility] Last Admin: 10/24/18 09:17 Dose: 40 mg Sitagliptin Phosphate (Januvia) 25 mg PO DAILY [facility] Last Admin: 10/24/18 09:17 Dose: 25 mg Sodium Bicarbonate (Sodium Bicarbonate Tab) 650 mg PO Q8 [facility] Last Admin: 10/24/18 09:17 Dose: 650 mg - Labs Labs: 10/24/18 04:20 10/24/18 04:20 PT 11.5 Seconds (9.8-13.1) 10/21/18 16:16 INR 1.0 10/21/18 16:16 APTT 23.5 Seconds (25.6-37.1) L 10/21/18 16:16
--- NOTE | 2018-10-24 14:15 | CP.PCM.PN ---
Subjective - Date & Time of Evaluation Date of Evaluation: 10/23/18 Time of Evaluation: 20:00 - Subjective Subjective: No complaints. Objective - Vital Signs/Intake and Output Vital Signs (last 24 hours): Temp Pulse Resp BP Pulse Ox 97.8 F 69 14 132/67 95 10/24/18 12:00 10/24/18 12:24 10/24/18 12:00 10/24/18 12:24 10/24/18 12:00 Intake and Output: 10/24/18 10/24/18 06:59 18:59 Intake Total 0 100 Output Total 2300 Balance -2300 100 - Medications Medications: Current Medications Aspirin (Aspirin) 325 mg PO DAILY [facility] Last Admin: 10/24/18 09:15 Dose: 325 mg Atorvastatin Calcium (Lipitor) 40 mg PO DAILY [facility] Last Admin: 10/24/18 09:19 Dose: 40 mg Cefepime HCl 1 gm/ Sodium (Chloride) 100 mls @ 100 mls/hr IVPB DAILY [facility]; Protocol Last Admin: 10/24/18 09:18 Dose: 100 mls/hr Iron Sucrose 200 mg/ Sodium (Chloride) 110 mls @ 110 mls/hr IVPB DAILY [facility] Stop: 10/28/18 09:01 Last Admin: 10/23/18 08:18 Dose: 110 mls/hr Insulin Human Lispro (Humalog) 0 units SC ACHS [facility]; Protocol Last Admin: 10/24/18 12:24 Dose: 1 unit Metoprolol Tartrate (Lopressor) 75 mg PO Q12 [facility] Last Admin: 10/24/18 12:24 Dose: 75 mg Pantoprazole Sodium (Protonix Inj) 40 mg IVP DAILY [facility] Last Admin: 10/24/18 09:17 Dose: 40 mg Sitagliptin Phosphate (Januvia) 25 mg PO DAILY [facility] Last Admin: 10/24/18 09:17 Dose: 25 mg Sodium Bicarbonate (Sodium Bicarbonate Tab) 650 mg PO Q8 [facility] Last Admin: 10/24/18 09:17 Dose: 650 mg - Labs Labs: 10/24/18 04:20 10/24/18 04:20 PT 11.5 Seconds (9.8-13.1) 10/21/18 16:16 INR 1.0 10/21/18 16:16 APTT 23.5 Seconds (25.6-37.1) L 10/21/18 16:16 - Head Exam Head Exam: ATRAUMATIC - Eye Exam Eye Exam: Normal appearance - ENT Exam ENT Exam: Mucous Membranes Dry - Respiratory Exam Respiratory Exam: Decreased Breath Sounds - Cardiovascular Exam Cardiovascular Exam: +S1, +S2 - GI/Abdominal Exam GI & Abdominal Exam: Normal Bowel Sounds Assessment and Plan (1) Anemia Assessment & Plan: iron deficiency anemia - on IV iron started on Procrit per renal FOBT negative + RBC in UA Status: Acute
--- NOTE | 2018-10-24 14:18 | CP.PCM.PN ---
Subjective - Date & Time of Evaluation Date of Evaluation: 10/24/18 Time of Evaluation: 12:00 - Subjective Subjective: No complaints, seen ambulating with PT Objective - Vital Signs/Intake and Output Vital Signs (last 24 hours): Temp Pulse Resp BP Pulse Ox 97.8 F 69 14 132/67 95 10/24/18 12:00 10/24/18 12:24 10/24/18 12:00 10/24/18 12:24 10/24/18 12:00 Intake and Output: 10/24/18 10/24/18 06:59 18:59 Intake Total 0 100 Output Total 2300 Balance -2300 100 - Medications Medications: Current Medications Aspirin (Aspirin) 325 mg PO DAILY [facility] Last Admin: 10/24/18 09:15 Dose: 325 mg Atorvastatin Calcium (Lipitor) 40 mg PO DAILY [facility] Last Admin: 10/24/18 09:19 Dose: 40 mg Cefepime HCl 1 gm/ Sodium (Chloride) 100 mls @ 100 mls/hr IVPB DAILY [facility]; Protocol Last Admin: 10/24/18 09:18 Dose: 100 mls/hr Iron Sucrose 200 mg/ Sodium (Chloride) 110 mls @ 110 mls/hr IVPB DAILY [facility] Stop: 10/28/18 09:01 Last Admin: 10/23/18 08:18 Dose: 110 mls/hr Insulin Human Lispro (Humalog) 0 units SC ACHS [facility]; Protocol Last Admin: 10/24/18 12:24 Dose: 1 unit Metoprolol Tartrate (Lopressor) 75 mg PO Q12 [facility] Last Admin: 10/24/18 12:24 Dose: 75 mg Pantoprazole Sodium (Protonix Inj) 40 mg IVP DAILY [facility] Last Admin: 10/24/18 09:17 Dose: 40 mg Sitagliptin Phosphate (Januvia) 25 mg PO DAILY [facility] Last Admin: 10/24/18 09:17 Dose: 25 mg Sodium Bicarbonate (Sodium Bicarbonate Tab) 650 mg PO Q8 [facility] Last Admin: 10/24/18 09:17 Dose: 650 mg - Labs Labs: 10/24/18 04:20 10/24/18 04:20 PT 11.5 Seconds (9.8-13.1) 10/21/18 16:16 INR 1.0 10/21/18 16:16 APTT 23.5 Seconds (25.6-37.1) L 10/21/18 16:16 - Head Exam Head Exam: ATRAUMATIC - Eye Exam Eye Exam: Normal appearance - ENT Exam ENT Exam: Mucous Membranes Dry - Respiratory Exam Respiratory Exam: NORMAL BREATHING PATTERN - Cardiovascular Exam Cardiovascular Exam: +S1, +S2 - GI/Abdominal Exam GI & Abdominal Exam: Normal Bowel Sounds Assessment and Plan (1) Anemia Assessment & Plan: iron deficiency on IV iron Procrit per renal FOBT negative +RBC in UA Status: Acute
--- NOTE | 2018-10-24 14:33 | CP.PCM.PN ---
Subjective - Date & Time of Evaluation Date of Evaluation: 10/24/18 Time of Evaluation: 11:20 - Subjective Subjective: F/U CHF, PNA no AD,no SOB, no C/P Objective - Vital Signs/Intake and Output Vital Signs (last 24 hours): Temp Pulse Resp BP Pulse Ox 97.8 F 69 14 132/67 95 10/24/18 12:00 10/24/18 12:24 10/24/18 12:00 10/24/18 12:24 10/24/18 12:00 Intake and Output: 10/24/18 10/24/18 06:59 18:59 Intake Total 0 100 Output Total 2300 Balance -2300 100 - Medications Medications: Current Medications Aspirin (Aspirin) 325 mg PO DAILY [facility] Last Admin: 10/24/18 09:15 Dose: 325 mg Atorvastatin Calcium (Lipitor) 40 mg PO DAILY [facility] Last Admin: 10/24/18 09:19 Dose: 40 mg Cefepime HCl 1 gm/ Sodium (Chloride) 100 mls @ 100 mls/hr IVPB DAILY [facility]; Protocol Last Admin: 10/24/18 09:18 Dose: 100 mls/hr Iron Sucrose 200 mg/ Sodium (Chloride) 110 mls @ 110 mls/hr IVPB DAILY [facility] Stop: 10/28/18 09:01 Last Admin: 10/23/18 08:18 Dose: 110 mls/hr Insulin Human Lispro (Humalog) 0 units SC ACHS [facility]; Protocol Last Admin: 10/24/18 12:24 Dose: 1 unit Metoprolol Tartrate (Lopressor) 75 mg PO Q12 [facility] Last Admin: 10/24/18 12:24 Dose: 75 mg Pantoprazole Sodium (Protonix Inj) 40 mg IVP DAILY [facility] Last Admin: 10/24/18 09:17 Dose: 40 mg Sitagliptin Phosphate (Januvia) 25 mg PO DAILY [facility] Last Admin: 10/24/18 09:17 Dose: 25 mg Sodium Bicarbonate (Sodium Bicarbonate Tab) 650 mg PO Q8 [facility] Last Admin: 10/24/18 09:17 Dose: 650 mg - Labs Labs: 10/24/18 04:20 10/24/18 04:20 PT 11.5 Seconds (9.8-13.1) 10/21/18 16:16 INR 1.0 10/21/18 16:16 APTT 23.5 Seconds (25.6-37.1) L 10/21/18 16:16 - Constitutional Appears: No Acute Distress - Head Exam Head Exam: NORMAL INSPECTION - Eye Exam Eye Exam: PERRL - ENT Exam ENT Exam: Normal Exam - Neck Exam Neck Exam: Normal Inspection - Respiratory Exam Respiratory Exam: Decreased Breath Sounds (at bases) - Cardiovascular Exam Cardiovascular Exam: REGULAR RHYTHM, Murmur (systolic) - GI/Abdominal Exam GI & Abdominal Exam: Soft, Normal Bowel Sounds - Extremities Exam Extremities Exam: Normal Inspection - Back Exam Back Exam: NORMAL INSPECTION - Neurological Exam Neurological Exam: Alert, Oriented x3 Additional comments: No focal motor/sensory deficit, generalized weakness. 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 Status: Chronic (3) PNA (pneumonia) Status: Acute (4) COPD (chronic obstructive pulmonary disease) Status: Chronic (5) UTI (urinary tract infection) Status: Acute (6) [id number]-[id number] kidney injury Status: Resolved (7) Sepsis Status: Acute (8) Anemia Status: Acute (9) Acute kidney injury 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: Acute (10) Aortic stenosis Status: Chronic (11) Hyperglycemia Status: Acute (12) DMII (diabetes mellitus, type 2) Status: Chronic (13) HTN (hypertension) Status: Chronic (14) Generalized weakness Status: Chronic - Assessment and Plan (Free Text) Plan: CT Chest PNA vs CHF, pending U C-S, Sepsis resolved, KENJI on CKD mild improvement, anemia Iron def improved, continue current Tx Intensive care unit time: 35 minutes.
[2018-10-25 05:19] LABS: HEMOGLOBIN 10.5 g/dL (12.0-18.0); MEAN CELL VOLUME 86.3 fl (80.0-94.0); MEAN CORPUSCULAR HGB CONC 32.5 g/dL (33.0-37.0); RBC 3.74 Mil/uL (4.40-5.90); RED CELL DISTRIBUTION WIDTH 16.1 % (11.5-14.5); WHITE BLOOD COUNT 11.4 K/uL (4.8-10.8)
[2018-10-25 05:48] LABS: ALB/GLOB RATIO 1.3 (1.0-2.1); ALBUMIN 3.8 g/dL (3.5-5.0); CALCIUM 9.1 mg/dL (8.4-10.2)
[2018-10-25] MEDS: Insulin Lispro (humaLOG) 100 Units/ml Inj SC SCH ×4 (06:49→22:00)
--- NOTE | 2018-10-25 11:32 | CP.CCUPN ---
CCU Subjective - Physician Review Subjective (Free Text): No CP or SOB at bed rest, has been able to ambulate about the room. Other vitals and I/O's reviewed. No fever spikes, SBP 130-140s, HR 60s, RR 14, 98% SPO2 on RA ROS: No other pertinent negs or positives on 10+ system review, PMSFH: All other Nursing and physician documentation reviewed to date; no new pertinent info noted relevant to current medical problems. EXAM- HEENT: no icterus, no gaze preference NECK: No JVD visible, supple, carotids equal upstroke bilat/no bruit CHEST: decreased BS at the bases, no wheezes audible bilaterally HEART: regular, distant, S1S2, no rubs or murmurs noted ABD: softly and nontender, no guarding, no organomegaly, BS hypoactive. EXT: no LE edema, no calf tenderness or palpable cords, distal pulses intact and symmetrical. NEURO: no gross focal deficits. SKIN: no rashes, warm and dry LABS: WBC= 11.4 HGB= 10.5 PLTs= 249K Na= 135 K= 4.1 CL=97 HCO3= 23 BUN/Cr= 92/3.7 BS= 140 IMPRESSION / MAJOR PROBLEMS NOW: 1. Acute Anemia superimposed on Anemia of chronic disease (renal disease) 2. ACS / NSTEMI / Acute Pulm Edema 3. Azotemia with CKD 3 4. Moderate AR/ on ECHO Aug 2018. PLAN: 1. ASA, Statin, BBs, otherwise as directed by Cardio. 2. Off Lasix dosing ( ? ), will re-order ALsix as PRN, does not appear decompensated at this time. 3. Follow serial BUN/Cr off Lasix, may recover a bit if Cardiac Cath anticipated. 4. Stable for Tele bed. CCU Objective - Patient Studies Fingerstick Blood Sugar Results: 108
--- NOTE | 2018-10-25 16:09 | CP.PCM.PN ---
Subjective - Date & Time of Evaluation Date of Evaluation: 10/25/18 Time of Evaluation: 12:40 - Subjective Subjective: F/U CHF, PNA no AD, N/C, no SOB, no C/P Objective - Vital Signs/Intake and Output Vital Signs (last 24 hours): Temp Pulse Resp BP Pulse Ox 98.4 F 66 20 118/82 97 10/25/18 12:00 10/25/18 12:00 10/25/18 12:00 10/25/18 12:00 10/25/18 12:00 Intake and Output: 10/25/18 10/25/18 06:59 18:59 Intake Total 190 100 Output Total 500 400 Balance -310 -300 - Medications Medications: Current Medications Aspirin (Aspirin) 325 mg PO DAILY [facility] Last Admin: 10/25/18 09:35 Dose: 325 mg Atorvastatin Calcium (Lipitor) 40 mg PO DAILY [facility] Last Admin: 10/25/18 09:04 Dose: 40 mg Iron Sucrose 200 mg/ Sodium (Chloride) 110 mls @ 110 mls/hr IVPB DAILY [facility] Stop: 10/28/18 09:01 Last Admin: 10/25/18 09:05 Dose: 110 mls/hr Insulin Human Lispro (Humalog) 0 units SC ACHS [facility]; Protocol Last Admin: 10/25/18 11:47 Dose: Not Given Metoprolol Tartrate (Lopressor) 75 mg PO Q12 [facility] Last Admin: 10/24/18 21:06 Dose: 75 mg Sitagliptin Phosphate (Januvia) 25 mg PO DAILY [facility] Last Admin: 10/25/18 09:04 Dose: 25 mg Sodium Bicarbonate (Sodium Bicarbonate Tab) 650 mg PO Q8 [facility] Last Admin: 10/25/18 09:04 Dose: 650 mg - Labs Labs: 10/25/18 04:30 10/25/18 04:30 PT 11.5 Seconds (9.8-13.1) 10/21/18 16:16 INR 1.0 10/21/18 16:16 APTT 23.5 Seconds (25.6-37.1) L 10/21/18 16:16 - Constitutional Appears: No Acute Distress - Head Exam Head Exam: NORMAL INSPECTION - Eye Exam Eye Exam: PERRL - ENT Exam ENT Exam: Normal Exam - Neck Exam Neck Exam: Normal Inspection - Respiratory Exam Respiratory Exam: Decreased Breath Sounds (at bases) - Cardiovascular Exam Cardiovascular Exam: REGULAR RHYTHM, Murmur (systolic) - GI/Abdominal Exam GI & Abdominal Exam: Soft, Normal Bowel Sounds - Extremities Exam Extremities Exam: Normal Inspection - Back Exam Back Exam: NORMAL INSPECTION - Neurological Exam Neurological Exam: Alert, Oriented x3 Additional comments: No focal motor/sensory deficit, generalized weakness. 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 Status: Chronic (3) PNA (pneumonia) Assessment & Plan: ruled out Status: Ruled-out (4) COPD (chronic obstructive pulmonary disease) Status: Chronic (5) UTI (urinary tract infection) Assessment & Plan: ruled out Status: Ruled-out (6) [id number] kidney injury Status: Resolved (7) Sepsis Assessment & Plan: rulout Status: Ruled-out (8) Anemia Status: Acute (9) Acute kidney injury 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: Acute (10) SIRS (systemic inflammatory response syndrome) Status: Acute (11) Aortic stenosis Status: Chronic (12) Hyperglycemia Status: Acute (13) DMII (diabetes mellitus, type 2) Status: Chronic (14) HTN (hypertension) Status: Chronic (15) Generalized weakness Status: Chronic - Assessment and Plan (Free Text) Plan: continue Epogen, Procrit, Lopressor and rest of treatment, Transfer to Telemetry
--- NOTE | 2018-10-25 17:15 | CP.PCM.PN ---
Subjective - Date & Time of Evaluation Date of Evaluation: 10/25/18 Time of Evaluation: 16:50 - Subjective Subjective: patient denies chest pain or dyspnea Objective - Vital Signs/Intake and Output Vital Signs (last 24 hours): Temp Pulse Resp BP Pulse Ox 97.7 F 71 20 150/68 96 10/25/18 16:00 10/25/18 16:00 10/25/18 12:00 10/25/18 16:00 10/25/18 16:00 Intake and Output: 10/25/18 10/25/18 06:59 18:59 Intake Total 190 100 Output Total 500 400 Balance -310 -300 - Medications Medications: Current Medications Aspirin (Aspirin) 325 mg PO DAILY [facility] Last Admin: 10/25/18 09:35 Dose: 325 mg Atorvastatin Calcium (Lipitor) 40 mg PO DAILY [facility] Last Admin: 10/25/18 09:04 Dose: 40 mg Iron Sucrose 200 mg/ Sodium (Chloride) 110 mls @ 110 mls/hr IVPB DAILY [facility] Stop: 10/28/18 09:01 Last Admin: 10/25/18 09:05 Dose: 110 mls/hr Insulin Human Lispro (Humalog) 0 units SC ACHS [facility]; Protocol Last Admin: 10/25/18 11:47 Dose: Not Given Metoprolol Tartrate (Lopressor) 75 mg PO Q12 [facility] Last Admin: 10/24/18 21:06 Dose: 75 mg Sitagliptin Phosphate (Januvia) 25 mg PO DAILY [facility] Last Admin: 10/25/18 09:04 Dose: 25 mg Sodium Bicarbonate (Sodium Bicarbonate Tab) 650 mg PO Q8 [facility] Last Admin: 10/25/18 09:04 Dose: 650 mg - Labs Labs: 10/25/18 04:30 10/25/18 04:30 PT 11.5 Seconds (9.8-13.1) 10/21/18 16:16 INR 1.0 10/21/18 16:16 APTT 23.5 Seconds (25.6-37.1) L 10/21/18 16:16 - Constitutional Appears: Non-toxic - Head Exam Head Exam: NORMAL INSPECTION - Eye Exam Eye Exam: Normal appearance - ENT Exam ENT Exam: Mucous Membranes Moist - Neck Exam Neck Exam: Full ROM - Respiratory Exam Respiratory Exam: NORMAL BREATHING PATTERN - Cardiovascular Exam Cardiovascular Exam: REGULAR RHYTHM, Murmur - GI/Abdominal Exam GI & Abdominal Exam: Normal Bowel Sounds - Rectal Exam Rectal Exam: Deferred - Extremities Exam Extremities Exam: absent: Pedal Edema - Back Exam Back Exam: NORMAL INSPECTION - Neurological Exam Neurological Exam: Alert - Psychiatric Exam Psychiatric exam: Normal Affect - Skin Skin Exam: Normal Color Assessment and Plan (1) 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 continue medical therapy Status: Chronic (2) Anemia Status: Acute (3) Aortic stenosis Assessment & Plan: stable at present. will not perform cardiac cath this hospitalization. will need discussion with family about the possibility of dialysis. Status: Chronic (4) HTN (hypertension) Status: Chronic
--- NOTE | 2018-10-25 21:57 | CP.PCM.PN ---
Subjective - Date & Time of Evaluation Date of Evaluation: 10/25/18 Time of Evaluation: 21:57 - Subjective Subjective: renal follow up note s: seen and examined no complaints o: gen: nad sclera: anicteric op: clear neck: supple no jvd cv:+s1+s2 no rub lungs: cta b/l abd: soft nt nd no organomegaly ext: no edema neuro: a+ox3 no asterixis psych: nml affect skin: no rash a/p: KENJI/CKD stage 4/pulm edema/anemia/chf/dm/acidosis monitor UOP cr stable BUN slowly trending down renal fxn stable procrit 12682 subcut & iv iron volume status looks improved agree with holding diuretics cont po bicarb Objective - Vital Signs/Intake and Output Vital Signs (last 24 hours): Temp Pulse Resp BP Pulse Ox 97.9 F 73 20 169/76 H 100 10/25/18 20:13 10/25/18 21:27 10/25/18 20:13 10/25/18 21:27 10/25/18 20:13 Intake and Output: 10/25/18 10/26/18 18:59 06:59 Intake Total 100 130 Output Total 400 100 Balance -300 30 - Medications Medications: Current Medications Aspirin (Aspirin) 325 mg PO DAILY [facility] Last Admin: 10/25/18 09:35 Dose: 325 mg Atorvastatin Calcium (Lipitor) 40 mg PO DAILY [facility] Last Admin: 10/25/18 09:04 Dose: 40 mg Iron Sucrose 200 mg/ Sodium (Chloride) 110 mls @ 110 mls/hr IVPB DAILY [facility] Stop: 10/28/18 09:01 Last Admin: 10/25/18 09:05 Dose: 110 mls/hr Insulin Human Lispro (Humalog) 0 units SC [facility]; Protocol Last Admin: 10/25/18 18:05 Dose: Not Given Metoprolol Tartrate (Lopressor) 75 mg PO Q12 [facility] Last Admin: 10/25/18 21:27 Dose: 75 mg Sitagliptin Phosphate (Januvia) 25 mg PO DAILY [facility] Last Admin: 10/25/18 09:04 Dose: 25 mg Sodium Bicarbonate (Sodium Bicarbonate Tab) 650 mg PO Q8 [facility] Last Admin: 10/25/18 18:06 Dose: 650 mg - Labs Labs: 10/25/18 04:30 10/25/18 04:30 PT 11.5 Seconds (9.8-13.1) 10/21/18 16:16 INR 1.0 10/21/18 16:16 APTT 23.5 Seconds (25.6-37.1) L 10/21/18 16:16
--- NOTE | 2018-10-25 22:20 | CP.PCM.PN ---
Subjective - Date & Time of Evaluation Date of Evaluation: 10/25/18 Time of Evaluation: 12:00 - Subjective Subjective: No complaints. Objective - Vital Signs/Intake and Output Vital Signs (last 24 hours): Temp Pulse Resp BP Pulse Ox 97.9 F 73 20 169/76 H 100 10/25/18 20:13 10/25/18 21:27 10/25/18 20:13 10/25/18 21:27 10/25/18 20:13 Intake and Output: 10/25/18 10/26/18 18:59 06:59 Intake Total 100 130 Output Total 400 100 Balance -300 30 - Medications Medications: Current Medications Aspirin (Aspirin) 325 mg PO DAILY [facility] Last Admin: 10/25/18 09:35 Dose: 325 mg Atorvastatin Calcium (Lipitor) 40 mg PO DAILY [facility] Last Admin: 10/25/18 09:04 Dose: 40 mg Iron Sucrose 200 mg/ Sodium (Chloride) 110 mls @ 110 mls/hr IVPB DAILY [facility] Stop: 10/28/18 09:01 Last Admin: 10/25/18 09:05 Dose: 110 mls/hr Insulin Human Lispro (Humalog) 0 units SC ACHS [facility]; Protocol Last Admin: 10/25/18 18:05 Dose: Not Given Metoprolol Tartrate (Lopressor) 75 mg PO Q12 [facility] Last Admin: 10/25/18 21:27 Dose: 75 mg Sitagliptin Phosphate (Januvia) 25 mg PO DAILY [facility] Last Admin: 10/25/18 09:04 Dose: 25 mg Sodium Bicarbonate (Sodium Bicarbonate Tab) 650 mg PO Q8 [facility] Last Admin: 10/25/18 18:06 Dose: 650 mg - Labs Labs: 10/25/18 04:30 10/25/18 04:30 PT 11.5 Seconds (9.8-13.1) 10/21/18 16:16 INR 1.0 10/21/18 16:16 APTT 23.5 Seconds (25.6-37.1) L 10/21/18 16:16 - Head Exam Head Exam: ATRAUMATIC - Eye Exam Eye Exam: Normal appearance - ENT Exam ENT Exam: Mucous Membranes Dry - Respiratory Exam Respiratory Exam: NORMAL BREATHING PATTERN - Cardiovascular Exam Cardiovascular Exam: +S1, +S2 - GI/Abdominal Exam GI & Abdominal Exam: Normal Bowel Sounds Assessment and Plan (1) Anemia Assessment & Plan: iron deficiency anemia of CKD IV iron and Procrit Status: Acute
[2018-10-26 05:44] LABS: HEMOGLOBIN 9.9 g/dL (12.0-18.0); MEAN CORPUSCULAR HEMOGLOBIN 28.4 pg (27.0-31.0); RBC 3.48 Mil/uL (4.40-5.90); RED CELL DISTRIBUTION WIDTH 16.5 % (11.5-14.5)
[2018-10-26 06:13] LABS: ALB/GLOB RATIO 1.2 (1.0-2.1); ALBUMIN 3.6 g/dL (3.5-5.0); CALCIUM 9.2 mg/dL (8.4-10.2)
[2018-10-26] MEDS: Insulin Lispro (humaLOG) 100 Units/ml Inj SC SCH ×4 (07:30→21:39)
--- NOTE | 2018-10-26 13:44 | CP.PCM.PN ---
Subjective - Date & Time of Evaluation Date of Evaluation: 10/26/18 Time of Evaluation: 10:00 - Subjective Subjective: F/U CHF, PNA no AD, N/C, ambulating Objective - Vital Signs/Intake and Output Vital Signs (last 24 hours): Temp Pulse Resp BP Pulse Ox 98.5 F 68 13 138/59 L 98 10/26/18 12:00 10/26/18 12:00 10/26/18 12:00 10/26/18 09:00 10/26/18 12:00 Intake and Output: 10/26/18 10/26/18 06:59 18:59 Intake Total 130 120 Output Total 700 250 Balance -570 -130 - Medications Medications: Current Medications Aspirin (Aspirin) 325 mg PO DAILY [facility] Last Admin: 10/26/18 09:45 Dose: 325 mg Atorvastatin Calcium (Lipitor) 40 mg PO DAILY [facility] Last Admin: 10/26/18 09:00 Dose: 40 mg Epoetin Neo (Procrit) 10,000 unit SC MWF [facility] Iron Sucrose 200 mg/ Sodium (Chloride) 110 mls @ 110 mls/hr IVPB DAILY [facility] Stop: 10/28/18 09:01 Last Admin: 10/26/18 09:44 Dose: 110 mls/hr Insulin Human Lispro (Humalog) 0 units SC ACHS [facility]; Protocol Last Admin: 10/26/18 12:00 Dose: Not Given Metoprolol Tartrate (Lopressor) 75 mg PO Q12 [facility] Last Admin: 10/26/18 09:00 Dose: 75 mg Sitagliptin Phosphate (Januvia) 25 mg PO DAILY [facility] Last Admin: 10/26/18 08:59 Dose: 25 mg Sodium Bicarbonate (Sodium Bicarbonate Tab) 650 mg PO BID [facility] Vitamin B Complex/Vit C/Folic Acid (Nephro-Ivonne) 1 tab PO DAILY [facility] - Labs Labs: 10/26/18 04:30 10/26/18 04:30 PT 11.5 Seconds (9.8-13.1) 10/21/18 16:16 INR 1.0 10/21/18 16:16 APTT 23.5 Seconds (25.6-37.1) L 10/21/18 16:16 - Constitutional Appears: No Acute Distress - Head Exam Head Exam: NORMAL INSPECTION - Eye Exam Eye Exam: PERRL - ENT Exam ENT Exam: Normal Exam - Neck Exam Neck Exam: Normal Inspection - Respiratory Exam Respiratory Exam: Decreased Breath Sounds (at bases) Additional comments: Crackles L base - Cardiovascular Exam Cardiovascular Exam: REGULAR RHYTHM, Murmur (systolic) - GI/Abdominal Exam GI & Abdominal Exam: Soft, Normal Bowel Sounds - Extremities Exam Extremities Exam: Normal Inspection - Back Exam Back Exam: NORMAL INSPECTION - Neurological Exam Neurological Exam: Alert, Oriented x3 Additional comments: no focal motor/sensory deficit, 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 Status: Chronic (3) PNA (pneumonia) Assessment & Plan: ruled out Status: Ruled-out (4) COPD (chronic obstructive pulmonary disease) Status: Chronic (5) UTI (urinary tract infection) Assessment & Plan: ruled out Status: Ruled-out (6) [id number] kidney injury Status: Resolved (7) Sepsis Assessment & Plan: ruled out Status: Ruled-out (8) Anemia Status: Acute (9) Acute kidney injury 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: Acute (10) SIRS (systemic inflammatory response syndrome) Status: Acute (11) Aortic stenosis Status: Chronic (12) Hyperglycemia Status: Acute (13) DMII (diabetes mellitus, type 2) Status: Chronic (14) HTN (hypertension) Status: Chronic (15) Generalized weakness Status: Chronic - Assessment and Plan (Free Text) Plan: Renal function and Anemia improved , continue Iron IV, Procrit, Bicarb and rest of Tx Intensive care time: 35 minutes.
--- NOTE | 2018-10-26 16:21 | CP.PCM.PN ---
Subjective - Date & Time of Evaluation Date of Evaluation: 10/26/18 Time of Evaluation: 16:14 - Subjective Subjective: renal follow up note s: seen and examined no complaints denies CP/SOB or urine complaints o: gen: nad sclera: anicteric op: clear neck: supple no jvd cv:+s1+s2 no rub lungs: cta b/l abd: soft nt nd no organomegaly ext: no edema neuro: a+ox3 no asterixis psych: nml affect skin: no rash a/p: KENJI/CKD stage 4/pulm edema/anemia/chf/dm/lactic acidosis/NSTEMI/COPD monitor UOP cr stable BUN slowly trending down renal fxn stable procrit 76809 subcut & iv iron volume status looks improved diuretics on hold. should be able to resume soon continue po bicarb check renal/bladder sonogram labs as ordered including SPEP/RICARDO and serum FLC assay, Vit D/PTH HTN controlled cardiology, heme following thanks for consult Please call if any Qs Objective - Vital Signs/Intake and Output Vital Signs (last 24 hours): Temp Pulse Resp BP Pulse Ox 98.5 F 68 13 138/59 L 98 10/26/18 12:00 10/26/18 12:00 10/26/18 12:00 10/26/18 09:00 10/26/18 12:00 Intake and Output: 10/26/18 10/26/18 06:59 18:59 Intake Total 130 120 Output Total 700 250 Balance -570 -130 - Medications Medications: Current Medications Aspirin (Aspirin) 325 mg PO DAILY [facility] Last Admin: 10/26/18 09:45 Dose: 325 mg Atorvastatin Calcium (Lipitor) 40 mg PO DAILY [facility] Last Admin: 10/26/18 09:00 Dose: 40 mg Epoetin Neo (Procrit) 10,000 unit SC MWF [facility] Iron Sucrose 200 mg/ Sodium (Chloride) 110 mls @ 110 mls/hr IVPB DAILY [facility] Stop: 10/28/18 09:01 Last Admin: 10/26/18 09:44 Dose: 110 mls/hr Insulin Human Lispro (Humalog) 0 units SC ACHS [facility]; Protocol Last Admin: 10/26/18 12:00 Dose: Not Given Metoprolol Tartrate (Lopressor) 75 mg PO Q12 [facility] Last Admin: 10/26/18 09:00 Dose: 75 mg Sitagliptin Phosphate (Januvia) 25 mg PO DAILY [facility] Last Admin: 10/26/18 08:59 Dose: 25 mg Sodium Bicarbonate (Sodium Bicarbonate Tab) 650 mg PO BID [facility] Vitamin B Complex/Vit C/Folic Acid (Nephro-Ivonne) 1 tab PO DAILY [facility] - Labs Labs: 10/26/18 04:30 10/26/18 04:30 PT 11.5 Seconds (9.8-13.1) 10/21/18 16:16 INR 1.0 10/21/18 16:16 APTT 23.5 Seconds (25.6-37.1) L 10/21/18 16:16
--- NOTE | 2018-10-26 22:25 | CP.PCM.PN ---
Subjective - Date & Time of Evaluation Date of Evaluation: 10/26/18 Time of Evaluation: 18:00 - Subjective Subjective: No complaints. Objective - Vital Signs/Intake and Output Vital Signs (last 24 hours): Temp Pulse Resp BP Pulse Ox 97.6 F 81 19 159/89 H 98 10/26/18 16:00 10/26/18 21:38 10/26/18 17:00 10/26/18 21:38 10/26/18 17:00 Intake and Output: 10/26/18 10/27/18 18:59 06:59 Intake Total 120 Output Total 250 Balance -130 - Medications Medications: Current Medications Aspirin (Aspirin) 325 mg PO DAILY [facility] Last Admin: 10/26/18 09:45 Dose: 325 mg Atorvastatin Calcium (Lipitor) 40 mg PO DAILY [facility] Last Admin: 10/26/18 09:00 Dose: 40 mg Epoetin Neo (Procrit) 10,000 unit SC MWF [facility] Iron Sucrose 200 mg/ Sodium (Chloride) 110 mls @ 110 mls/hr IVPB DAILY [facility] Stop: 10/28/18 09:01 Last Admin: 10/26/18 09:44 Dose: 110 mls/hr Insulin Human Lispro (Humalog) 0 units SC ACHS [facility]; Protocol Last Admin: 10/26/18 21:39 Dose: 1 unit Metoprolol Tartrate (Lopressor) 75 mg PO Q12 [facility] Last Admin: 10/26/18 21:38 Dose: 75 mg Sitagliptin Phosphate (Januvia) 25 mg PO DAILY [facility] Last Admin: 10/26/18 08:59 Dose: 25 mg Sodium Bicarbonate (Sodium Bicarbonate Tab) 650 mg PO BID [facility] Last Admin: 10/26/18 17:53 Dose: 650 mg Vitamin B Complex/Vit C/Folic Acid (Nephro-Ivonne) 1 tab PO DAILY [facility] - Labs Labs: 10/26/18 04:30 10/26/18 04:30 PT 11.5 Seconds (9.8-13.1) 10/21/18 16:16 INR 1.0 10/21/18 16:16 APTT 23.5 Seconds (25.6-37.1) L 10/21/18 16:16 - Head Exam Head Exam: ATRAUMATIC - Eye Exam Eye Exam: Normal appearance - ENT Exam ENT Exam: Mucous Membranes Dry - Respiratory Exam Respiratory Exam: NORMAL BREATHING PATTERN - Cardiovascular Exam Cardiovascular Exam: +S1, +S2 - GI/Abdominal Exam GI & Abdominal Exam: Normal Bowel Sounds Assessment and Plan (1) Anemia Assessment & Plan: iron deficiency on IV iron anemia of CKD on Procrit Status: Acute
[2018-10-27 05:43] LABS: BASO % 0.4 % (0.0-2.0); EOS # 0.3 K/uL (0.0-0.7); EOS % 3.5 % (0.0-4.0); LYMPH # 0.6 K/uL (1.0-4.3); LYMPH % 7.1 % (20.0-40.0); MEAN CELL VOLUME 87.1 fl (80.0-94.0); MEAN CORPUSCULAR HGB CONC 33.3 g/dL (33.0-37.0); MEAN PLATELET VOLUME 7.7 fl (7.2-11.7); MONO # 1.2 K/uL (0.0-0.8); MONO % 13.8 % (0.0-10.0); NEUT # 6.6 K/uL (1.8-7.0); NEUT % 75.2 % (50.0-75.0); PLATELET COUNT 221 K/uL (130-400); RBC 3.44 Mil/uL (4.40-5.90); RED CELL DISTRIBUTION WIDTH 16.8 % (11.5-14.5); WHITE BLOOD COUNT 8.8 K/uL (4.8-10.8)
[2018-10-27 06:06] LABS: CALCIUM 9.1 mg/dL (8.4-10.2)
[2018-10-27] MEDS: Insulin Lispro (humaLOG) 100 Units/ml Inj SC SCH ×5 (08:28→21:24)
[2018-10-27 08:48] LABS: BANDS 1 % (0-2); EOSINOPHIL 4 % (0-7); LYMPHOCYTE 8 % (20-50); MONOCYTE 14 % (0-10); MYELOCYTE 2 % (0-0); NEUTROPHIL 71 % (42-75); PLATELET ESTIMATE NORMAL (NORMAL); TOTAL CELLS COUNTED 100
[2018-10-27 08:57] LABS: ANISOCYTOSIS SLIGHT; OVALOCYTES SLIGHT; POIKILOCYTOSIS SLIGHT; TEARDROP CELLS SLIGHT
[2018-10-27 08:59] LABS: SCHISTOCYTES SLIGHT; SPHEROCYTES SLIGHT
[2018-10-27] MEDS: Multivitamin Vitamin B Complex (Nephro-Vite) Tab PO SCH (09:01)
[2018-10-27] MEDS: EPOETIN ALFA 10,000 UNIT/ML ML SC SCH (09:05)
--- NOTE | 2018-10-27 13:24 | CP.PCM.PN ---
Subjective - Date & Time of Evaluation Date of Evaluation: 10/27/18 Time of Evaluation: 12:50 - Subjective Subjective: F/U CHF, PNA Pt alert, oriented, N/C. Objective - Vital Signs/Intake and Output Vital Signs (last 24 hours): Temp Pulse Resp BP Pulse Ox 97.9 F 68 19 158/49 H 99 10/27/18 12:00 10/27/18 12:00 10/27/18 12:00 10/27/18 12:00 10/27/18 12:00 Intake and Output: 10/27/18 10/27/18 06:59 18:59 Intake Total 200 Output Total 600 180 Balance -600 20 - Medications Medications: Current Medications Aspirin (Aspirin) 325 mg PO DAILY [facility] Last Admin: 10/27/18 09:05 Dose: 325 mg Atorvastatin Calcium (Lipitor) 40 mg PO DAILY [facility] Last Admin: 10/27/18 09:01 Dose: 40 mg Epoetin Neo (Procrit) 10,000 unit SC MWF [facility] Last Admin: 10/27/18 09:05 Dose: 10,000 unit Iron Sucrose 200 mg/ Sodium (Chloride) 110 mls @ 110 mls/hr IVPB DAILY [facility] Stop: 10/28/18 09:01 Last Admin: 10/27/18 11:32 Dose: 110 mls/hr Insulin Human Lispro (Humalog) 0 units SC ACHS [facility]; Protocol Last Admin: 10/27/18 12:45 Dose: Not Given Metoprolol Tartrate (Lopressor) 75 mg PO Q12 [facility] Last Admin: 10/27/18 08:59 Dose: 75 mg Sitagliptin Phosphate (Januvia) 25 mg PO DAILY [facility] Last Admin: 10/27/18 09:01 Dose: 25 mg Vitamin B Complex/Vit C/Folic Acid (Nephro-Ivonne) 1 tab PO DAILY [facility] Last Admin: 10/27/18 09:01 Dose: 1 tab - Labs Labs: 10/27/18 04:35 10/27/18 04:35 PT 11.5 Seconds (9.8-13.1) 10/21/18 16:16 INR 1.0 10/21/18 16:16 APTT 23.5 Seconds (25.6-37.1) L 10/21/18 16:16 - Constitutional Appears: No Acute Distress - Head Exam Head Exam: NORMAL INSPECTION - Eye Exam Eye Exam: PERRL - ENT Exam ENT Exam: Normal Exam - Neck Exam Neck Exam: Normal Inspection - Respiratory Exam Respiratory Exam: Decreased Breath Sounds (at bases) Additional comments: Crackles L base - Cardiovascular Exam Cardiovascular Exam: REGULAR RHYTHM, Murmur (systolic) - GI/Abdominal Exam GI & Abdominal Exam: Soft, Normal Bowel Sounds - Extremities Exam Extremities Exam: Normal Inspection - Back Exam Back Exam: NORMAL INSPECTION - Neurological Exam Neurological Exam: Alert, Oriented x3 Additional comments: No focal motor/sensory deficit. Generalized weakness. 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 Status: Chronic (3) PNA (pneumonia) Status: Ruled-out (4) COPD (chronic obstructive pulmonary disease) Status: Chronic (5) UTI (urinary tract infection) Status: Ruled-out (6) [id number] kidney injury Status: Deleted (7) Sepsis Status: Ruled-out (8) Anemia Status: Acute (9) Acute kidney injury 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: Acute (10) SIRS (systemic inflammatory response syndrome) Status: Acute (11) Aortic stenosis Status: Chronic (12) Hyperglycemia Status: Acute (13) DMII (diabetes mellitus, type 2) Status: Chronic (14) HTN (hypertension) Status: Chronic (15) Generalized weakness Status: Chronic - Assessment and Plan (Free Text) Plan: Renal function improved, DM stable, transfer to Telemetry.
--- NOTE | 2018-10-27 14:37 | CP.PCM.PN ---
Subjective - Date & Time of Evaluation Date of Evaluation: 10/27/18 Time of Evaluation: 14:37 - Subjective Subjective: renal follow up note s: seen and examined no complaints denies CP/SOB or urine complaints o: gen: nad sclera: anicteric op: clear neck: supple no jvd cv:+s1+s2 no rub lungs: cta b/l abd: soft nt nd no organomegaly ext: no edema neuro: a+ox3 no asterixis psych: nml affect skin: no rash a/p: KENJI/CKD stage 4/pulm edema/anemia/chf/dm/lactic acidosis/NSTEMI/COPD/hyponatremia monitor UOP cr stable BUN slowly trending down , no acute need for dialysis renal fxn stable procrit [id number] subcut & iv iron volume status looks improved diuretics on hold. should be able to resume soon discontinue po bicarb check renal/bladder sonogram labs as ordered including SPEP/RICARDO and serum FLC assay, Vit D/PTH started Vit D supplements HTN control cardiology, heme following thanks for consult Please call if any Qs Objective - Vital Signs/Intake and Output Vital Signs (last 24 hours): Temp Pulse Resp BP Pulse Ox 97.9 F 68 19 158/49 H 99 10/27/18 12:00 10/27/18 12:00 10/27/18 12:00 10/27/18 12:00 10/27/18 12:00 Intake and Output: 10/27/18 10/27/18 06:59 18:59 Intake Total 200 Output Total 600 180 Balance -600 20 - Medications Medications: Current Medications Aspirin (Aspirin) 325 mg PO DAILY [facility] Last Admin: 10/27/18 09:05 Dose: 325 mg Atorvastatin Calcium (Lipitor) 40 mg PO DAILY [facility] Last Admin: 10/27/18 09:01 Dose: 40 mg Epoetin Neo (Procrit) 10,000 unit SC MWF [facility] Last Admin: 10/27/18 09:05 Dose: 10,000 unit Ergocalciferol (Drisdol 50,000 Intl Units Cap) 1 cap PO Q7D [facility] Iron Sucrose 200 mg/ Sodium (Chloride) 110 mls @ 110 mls/hr IVPB DAILY [facility] Stop: 10/28/18 09:01 Last Admin: 10/27/18 11:32 Dose: 110 mls/hr Insulin Human Lispro (Humalog) 0 units SC [facility]; Protocol Last Admin: 10/27/18 12:45 Dose: Not Given Metoprolol Tartrate (Lopressor) 75 mg PO Q12 [facility] Last Admin: 10/27/18 08:59 Dose: 75 mg Sitagliptin Phosphate (Januvia) 25 mg PO DAILY [facility] Last Admin: 10/27/18 09:01 Dose: 25 mg Vitamin B Complex/Vit C/Folic Acid (Nephro-Ivonne) 1 tab PO DAILY [facility] Last Admin: 10/27/18 09:01 Dose: 1 tab - Labs Labs: 10/27/18 04:35 10/27/18 04:35 PT 11.5 Seconds (9.8-13.1) 10/21/18 16:16 INR 1.0 10/21/18 16:16 APTT 23.5 Seconds (25.6-37.1) L 10/21/18 16:16
[2018-10-27] MEDS ORDERED: Ergocalciferol 50,000 Intl Units Cap PO SCH (14:45)
--- NOTE | 2018-10-27 16:44 | US ---
Date of service: 10/27/2018 PROCEDURE: Pelvic ultrasound. HISTORY: KENJI. please assess for PVR as well COMPARISON: None TECHNIQUE: Standard protocol for this study/examination. FINDINGS: Nondiagnostic study in the assessment of the urinary bladder. Specifically the patient voided prior to the examination. IMPRESSION: Nondiagnostic study.
--- NOTE | 2018-10-27 16:46 | US ---
Date of service: 10/27/2018 PROCEDURE: Ultrasound of the Kidneys HISTORY: KENJI COMPARISON: 07/12/2017. TECHNIQUE: Sonogram of the kidneys. FINDINGS: RIGHT KIDNEY: Measures: 4.7 x 8.9 x 5.4 cm. Cm. Normal in size, contour and echogenicity. Fullness of the right collecting system. Echogenic foci the largest in the lower pole region 1.9 x 1.7 cm. Additional calculus midpole region 9 x 10 mm. Echogenic focus 9 x 11 mm lower pole. LEFT KIDNEY: Measures: 4.2 x 4.6 x 8.9 cm. Normal in size, contour and echogenicity. No stone, solid mass lesion or hydronephrosis visualized. OTHER FINDINGS: None. IMPRESSION: Right kidney and collecting system: Mild unilateral, right hydronephrosis. Multiple right renal calculi. Echogenic focus common non shadowing mid lower pole region. Unremarkable left kidney and collecting system
--- NOTE | 2018-10-27 21:46 | CP.PCM.PN ---
Subjective - Date & Time of Evaluation Date of Evaluation: 10/27/18 Time of Evaluation: 12:00 - Subjective Subjective: No complaints. Objective - Vital Signs/Intake and Output Vital Signs (last 24 hours): Temp Pulse Resp BP Pulse Ox 98.1 F 71 17 168/78 H 99 10/27/18 19:49 10/27/18 21:28 10/27/18 19:49 10/27/18 21:28 10/27/18 19:49 Intake and Output: 10/27/18 10/28/18 18:59 06:59 Intake Total 200 Output Total 180 Balance 20 - Medications Medications: Current Medications Aspirin (Aspirin) 325 mg PO DAILY [facility] Last Admin: 10/27/18 09:05 Dose: 325 mg Atorvastatin Calcium (Lipitor) 40 mg PO DAILY [facility] Last Admin: 10/27/18 09:01 Dose: 40 mg Epoetin Neo (Procrit) 10,000 unit SC MWF [facility] Last Admin: 10/27/18 09:05 Dose: 10,000 unit Ergocalciferol (Drisdol 50,000 Intl Units Cap) 1 cap PO Q7D [facility] Last Admin: 10/27/18 15:07 Dose: 1 cap Iron Sucrose 200 mg/ Sodium (Chloride) 110 mls @ 110 mls/hr IVPB DAILY [facility] Stop: 10/28/18 09:01 Last Admin: 10/27/18 11:32 Dose: 110 mls/hr Insulin Human Lispro (Humalog) 0 units SC ACHS [facility]; Protocol Last Admin: 10/27/18 21:24 Dose: Not Given Metoprolol Tartrate (Lopressor) 75 mg PO Q12 [facility] Last Admin: 10/27/18 21:28 Dose: 75 mg Sitagliptin Phosphate (Januvia) 25 mg PO DAILY [facility] Last Admin: 10/27/18 09:01 Dose: 25 mg Vitamin B Complex/Vit C/Folic Acid (Nephro-Ivonne) 1 tab PO DAILY [facility] Last Admin: 10/27/18 09:01 Dose: 1 tab - Labs Labs: 10/27/18 04:35 10/27/18 04:35 PT 11.5 Seconds (9.8-13.1) 10/21/18 16:16 INR 1.0 10/21/18 16:16 APTT 23.5 Seconds (25.6-37.1) L 10/21/18 16:16 - Head Exam Head Exam: ATRAUMATIC - Eye Exam Eye Exam: Normal appearance - ENT Exam ENT Exam: Mucous Membranes Dry - Respiratory Exam Respiratory Exam: NORMAL BREATHING PATTERN - Cardiovascular Exam Cardiovascular Exam: +S1, +S2 - GI/Abdominal Exam GI & Abdominal Exam: Normal Bowel Sounds Assessment and Plan (1) Anemia Assessment & Plan: anemia of CKD on Procrit iron deficiency anemia on supplementation Status: Acute
[2018-10-28] MEDS: Insulin Lispro (humaLOG) 100 Units/ml Inj SC SCH ×3 (06:43→12:55)
[2018-10-28] MEDS: Multivitamin Vitamin B Complex (Nephro-Vite) Tab PO SCH (09:33)
--- NOTE | 2018-10-28 10:25 | CP.PCM.PN ---
Subjective - Date & Time of Evaluation Date of Evaluation: 10/28/18 Time of Evaluation: 10:00 - Subjective Subjective: patient denies chest pain or dyspnea Objective - Vital Signs/Intake and Output Vital Signs (last 24 hours): Temp Pulse Resp BP Pulse Ox 98 F 72 18 164/75 H 98 10/28/18 08:12 10/28/18 09:32 10/28/18 08:12 10/28/18 09:32 10/28/18 08:12 - Medications Medications: Current Medications Aspirin (Aspirin) 325 mg PO DAILY [facility] Last Admin: 10/28/18 09:35 Dose: 325 mg Atorvastatin Calcium (Lipitor) 40 mg PO DAILY [facility] Last Admin: 10/28/18 09:31 Dose: 40 mg Epoetin Neo (Procrit) 10,000 unit SC MWF [facility] Last Admin: 10/27/18 09:05 Dose: 10,000 unit Ergocalciferol (Drisdol 50,000 Intl Units Cap) 1 cap PO Q7D [facility] Last Admin: 10/27/18 15:07 Dose: 1 cap Insulin Human Lispro (Humalog) 0 units SC [facility]; Protocol Last Admin: 10/28/18 06:43 Dose: Not Given Metoprolol Tartrate (Lopressor) 75 mg PO Q12 [facility] Last Admin: 10/28/18 09:32 Dose: 75 mg Sitagliptin Phosphate (Januvia) 25 mg PO DAILY [facility] Last Admin: 10/28/18 09:31 Dose: 25 mg Vitamin B Complex/Vit C/Folic Acid (Nephro-Ivonne) 1 tab PO DAILY [facility] Last Admin: 10/28/18 09:33 Dose: 1 tab - Labs Labs: 10/27/18 04:35 10/27/18 04:35 PT 11.5 Seconds (9.8-13.1) 10/21/18 16:16 INR 1.0 10/21/18 16:16 APTT 23.5 Seconds (25.6-37.1) L 10/21/18 16:16 - Constitutional Appears: Non-toxic - Head Exam Head Exam: NORMAL INSPECTION - Eye Exam Eye Exam: Normal appearance - ENT Exam ENT Exam: Mucous Membranes Moist - Neck Exam Neck Exam: Full ROM - Respiratory Exam Respiratory Exam: NORMAL BREATHING PATTERN - Cardiovascular Exam Cardiovascular Exam: REGULAR RHYTHM, Murmur - GI/Abdominal Exam GI & Abdominal Exam: Normal Bowel Sounds - Rectal Exam Rectal Exam: Deferred - Extremities Exam Extremities Exam: absent: Pedal Edema - Back Exam Back Exam: NORMAL INSPECTION - Neurological Exam Neurological Exam: Alert - Psychiatric Exam Psychiatric exam: Normal Affect - Skin Skin Exam: Normal Color Assessment and Plan (1) 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 recommend medical therapy. Status: Chronic (2) Anemia Status: Acute (3) Aortic stenosis Assessment & Plan: at this time will defer cardiac cath. Continue medical management, will have to discuss further workup for at a later date given anemia and renal failure. Status: Chronic (4) HTN (hypertension) Status: Chronic
--- NOTE | 2018-10-28 16:45 | CP.PCM.PN ---
Subjective - Date & Time of Evaluation Date of Evaluation: 10/28/18 Time of Evaluation: 12:30 - Subjective Subjective: F/U KENJI no AD, N/C, n o SOB, no C/P Objective - Vital Signs/Intake and Output Vital Signs (last 24 hours): Temp Pulse Resp BP Pulse Ox 97.4 F L 64 16 163/74 H 97 10/28/18 15:45 10/28/18 15:45 10/28/18 15:45 10/28/18 15:45 10/28/18 15:45 - Medications Medications: Current Medications Aspirin (Aspirin) 325 mg PO DAILY [facility] Last Admin: 10/28/18 09:35 Dose: 325 mg Atorvastatin Calcium (Lipitor) 40 mg PO DAILY [facility] Last Admin: 10/28/18 09:31 Dose: 40 mg Epoetin Neo (Procrit) 10,000 unit SC MWF [facility] Last Admin: 10/27/18 09:05 Dose: 10,000 unit Ergocalciferol (Drisdol 50,000 Intl Units Cap) 1 cap PO Q7D [facility] Last Admin: 10/27/18 15:07 Dose: 1 cap Glipizide (Glucotrol) 5 mg PO BID [facility] Last Admin: 10/28/18 16:19 Dose: 5 mg Metoprolol Tartrate (Lopressor) 75 mg PO Q12 [facility] Last Admin: 10/28/18 09:32 Dose: 75 mg Sitagliptin Phosphate (Januvia) 25 mg PO DAILY [facility] Last Admin: 10/28/18 09:31 Dose: 25 mg Vitamin B Complex/Vit C/Folic Acid (Nephro-Ivonne) 1 tab PO DAILY [facility] Last Admin: 10/28/18 09:33 Dose: 1 tab - Labs Labs: 10/27/18 04:35 10/27/18 04:35 PT 11.5 Seconds (9.8-13.1) 10/21/18 16:16 INR 1.0 10/21/18 16:16 APTT 23.5 Seconds (25.6-37.1) L 10/21/18 16:16 - Constitutional Appears: No Acute Distress - Head Exam Head Exam: NORMAL INSPECTION - Eye Exam Eye Exam: PERRL - ENT Exam ENT Exam: Normal Exam - Neck Exam Neck Exam: Normal Inspection - Respiratory Exam Respiratory Exam: Decreased Breath Sounds (at bases) - Cardiovascular Exam Cardiovascular Exam: REGULAR RHYTHM, Murmur (systolic) - GI/Abdominal Exam GI & Abdominal Exam: Soft, Normal Bowel Sounds - Extremities Exam Extremities Exam: Normal Inspection - Back Exam Back Exam: NORMAL INSPECTION - Neurological Exam Neurological Exam: Alert, Oriented x3 Additional comments: No focal motor/sensory deficit, generalized weakness. 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 Status: Chronic (3) PNA (pneumonia) Status: Ruled-out (4) COPD (chronic obstructive pulmonary disease) Status: Chronic (5) UTI (urinary tract infection) Status: Ruled-out (6) Sepsis Status: Ruled-out (7) Anemia Status: Acute (8) Acute kidney injury 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: Acute (9) SIRS (systemic inflammatory response syndrome) Status: Acute (10) Aortic stenosis Status: Chronic (11) Hyperglycemia Status: Acute (12) DMII (diabetes mellitus, type 2) Status: Chronic (13) HTN (hypertension) Status: Chronic (14) Generalized weakness Status: Chronic - Assessment and Plan (Free Text) Plan: refusing Insulin, on Januvia, add Glucotrol, continue Epogen and rest of Tx
--- NOTE | 2018-10-28 21:24 | CP.PCM.PN ---
Subjective - Date & Time of Evaluation Date of Evaluation: 10/28/18 Time of Evaluation: 19:00 - Subjective Subjective: No complaints. Objective - Vital Signs/Intake and Output Vital Signs (last 24 hours): Temp Pulse Resp BP Pulse Ox 97.4 F L 72 16 183/74 H 98 10/28/18 20:00 10/28/18 20:08 10/28/18 20:00 10/28/18 20:08 10/28/18 20:00 - Medications Medications: Current Medications Aspirin (Aspirin) 325 mg PO DAILY [facility] Last Admin: 10/28/18 09:35 Dose: 325 mg Atorvastatin Calcium (Lipitor) 40 mg PO DAILY [facility] Last Admin: 10/28/18 09:31 Dose: 40 mg Epoetin Neo (Procrit) 10,000 unit SC MWF [facility] Last Admin: 10/27/18 09:05 Dose: 10,000 unit Ergocalciferol (Drisdol 50,000 Intl Units Cap) 1 cap PO Q7D [facility] Last Admin: 10/27/18 15:07 Dose: 1 cap Glipizide (Glucotrol) 5 mg PO BID [facility] Last Admin: 10/28/18 16:19 Dose: 5 mg Metoprolol Tartrate (Lopressor) 75 mg PO Q12 [facility] Last Admin: 10/28/18 20:08 Dose: 75 mg Sitagliptin Phosphate (Januvia) 25 mg PO DAILY [facility] Last Admin: 10/28/18 09:31 Dose: 25 mg Vitamin B Complex/Vit C/Folic Acid (Nephro-Ivonne) 1 tab PO DAILY [facility] Last Admin: 10/28/18 09:33 Dose: 1 tab - Labs Labs: 10/27/18 04:35 10/27/18 04:35 PT 11.5 Seconds (9.8-13.1) 10/21/18 16:16 INR 1.0 10/21/18 16:16 APTT 23.5 Seconds (25.6-37.1) L 10/21/18 16:16 - Head Exam Head Exam: ATRAUMATIC - Eye Exam Eye Exam: Normal appearance - ENT Exam ENT Exam: Mucous Membranes Dry - Respiratory Exam Respiratory Exam: NORMAL BREATHING PATTERN - Cardiovascular Exam Cardiovascular Exam: +S1, +S2 - GI/Abdominal Exam GI & Abdominal Exam: Normal Bowel Sounds Assessment and Plan (1) Anemia Assessment & Plan: anemia of CKD on Procrit iron deficiency anemia s/p supplementation Status: Acute
[2018-10-29] MEDS: Multivitamin Vitamin B Complex (Nephro-Vite) Tab PO SCH (08:32)
--- NOTE | 2018-10-29 13:05 | CP.PCM.PN ---
Subjective - Date & Time of Evaluation Date of Evaluation: 10/29/18 Time of Evaluation: 13:05 - Subjective Subjective: renal follow up note s: seen and examined no complaints denies CP/SOB or urine complaints o: gen: nad sclera: anicteric op: clear neck: supple no jvd cv:+s1+s2 no rub lungs: cta b/l abd: soft nt nd no organomegaly ext: no edema neuro: a+ox3 no asterixis psych: nml affect skin: no rash a/p: KENJI/CKD stage 4/pulm edema/anemia/chf/dm/lactic acidosis/NSTEMI/COPD/hyponatremia monitor UOP cr stable BUN slowly trending down , no acute need for dialysis renal fxn stable procrit [id number] subcut & iv iron volume status looks improved diuretics on hold. should be able to resume soon, added lasix 40 mg/d discontinue po bicarb check renal/bladder sonogram labs as ordered including SPEP/RICARDO and serum FLC assay, Vit D/PTH started Vit D supplements HTN control; added norvasc cardiology, heme following thanks for consult Please call if any Qs Objective - Vital Signs/Intake and Output Vital Signs (last 24 hours): Temp Pulse Resp BP Pulse Ox 98.0 F 61 20 175/71 H 98 10/29/18 12:38 10/29/18 12:38 10/29/18 12:38 10/29/18 12:38 10/29/18 12:38 - Medications Medications: Current Medications Amlodipine Besylate (Norvasc) 5 mg PO DAILY [facility] Last Admin: 10/29/18 12:35 Dose: 5 mg Aspirin (Aspirin) 325 mg PO DAILY [facility] Last Admin: 10/29/18 09:14 Dose: 325 mg Atorvastatin Calcium (Lipitor) 40 mg PO DAILY [facility] Last Admin: 10/29/18 08:32 Dose: 40 mg Epoetin Neo (Procrit) 10,000 unit SC MWF [facility] Last Admin: 10/27/18 09:05 Dose: 10,000 unit Ergocalciferol (Drisdol 50,000 Intl Units Cap) 1 cap PO Q7D [facility] Last Admin: 10/27/18 15:07 Dose: 1 cap Furosemide (Lasix) 40 mg PO DAILY [facility] Stop: 11/03/18 09:46 Last Admin: 10/29/18 12:34 Dose: 40 mg Glipizide (Glucotrol) 5 mg PO BID [facility] Last Admin: 10/29/18 08:32 Dose: 5 mg Metoprolol Tartrate (Lopressor) 75 mg PO Q12 [facility] Last Admin: 10/29/18 08:31 Dose: 75 mg Sitagliptin Phosphate (Januvia) 25 mg PO DAILY [facility] Last Admin: 10/29/18 08:32 Dose: 25 mg Vitamin B Complex/Vit C/Folic Acid (Nephro-Ivonne) 1 tab PO DAILY [facility] Last Admin: 10/29/18 08:32 Dose: 1 tab - Labs Labs: 10/27/18 04:35 10/27/18 04:35 PT 11.5 Seconds (9.8-13.1) 10/21/18 16:16 INR 1.0 10/21/18 16:16 APTT 23.5 Seconds (25.6-37.1) L 10/21/18 16:16
--- NOTE | 2018-10-29 16:59 | CP.PCM.PN ---
Subjective - Date & Time of Evaluation Date of Evaluation: 10/29/18 Time of Evaluation: 13:30 - Subjective Subjective: F/U KENJI no AD, N/C, no SOB, no C/P Objective - Vital Signs/Intake and Output Vital Signs (last 24 hours): Temp Pulse Resp BP Pulse Ox 98.7 F 76 16 160/75 H 100 10/29/18 15:38 10/29/18 15:38 10/29/18 15:38 10/29/18 15:38 10/29/18 15:38 - Medications Medications: Current Medications Amlodipine Besylate (Norvasc) 5 mg PO DAILY [facility] Last Admin: 10/29/18 12:35 Dose: 5 mg Aspirin (Aspirin) 325 mg PO DAILY [facility] Last Admin: 10/29/18 09:14 Dose: 325 mg Atorvastatin Calcium (Lipitor) 40 mg PO DAILY [facility] Last Admin: 10/29/18 08:32 Dose: 40 mg Epoetin Neo (Procrit) 10,000 unit SC MWF [facility] Last Admin: 10/27/18 09:05 Dose: 10,000 unit Ergocalciferol (Drisdol 50,000 Intl Units Cap) 1 cap PO Q7D [facility] Last Admin: 10/27/18 15:07 Dose: 1 cap Furosemide (Lasix) 40 mg PO DAILY [facility] Stop: 11/03/18 09:46 Last Admin: 10/29/18 12:34 Dose: 40 mg Glipizide (Glucotrol) 5 mg PO BID [facility] Last Admin: 10/29/18 16:08 Dose: 5 mg Metoprolol Tartrate (Lopressor) 75 mg PO Q12 [facility] Last Admin: 10/29/18 08:31 Dose: 75 mg Sitagliptin Phosphate (Januvia) 25 mg PO DAILY [facility] Last Admin: 10/29/18 08:32 Dose: 25 mg Vitamin B Complex/Vit C/Folic Acid (Nephro-Ivonne) 1 tab PO DAILY [facility] Last Admin: 10/29/18 08:32 Dose: 1 tab - Labs Labs: 10/27/18 04:35 10/27/18 04:35 PT 11.5 Seconds (9.8-13.1) 10/21/18 16:16 INR 1.0 10/21/18 16:16 APTT 23.5 Seconds (25.6-37.1) L 10/21/18 16:16 - Constitutional Appears: No Acute Distress - Head Exam Head Exam: NORMAL INSPECTION - Eye Exam Eye Exam: PERRL - ENT Exam ENT Exam: Normal Exam - Neck Exam Neck Exam: Normal Inspection - Respiratory Exam Respiratory Exam: Decreased Breath Sounds (at bases) - Cardiovascular Exam Cardiovascular Exam: REGULAR RHYTHM, Murmur (systolic) - GI/Abdominal Exam GI & Abdominal Exam: Soft, Normal Bowel Sounds - Extremities Exam Extremities Exam: Normal Inspection - Back Exam Back Exam: NORMAL INSPECTION - Neurological Exam Neurological Exam: Alert, Oriented x3 Additional comments: No focal motor/sensory deficit, generalized weakness. - Psychiatric Exam Psychiatric exam: Normal Affect, Normal Mood - Skin Skin Exam: Warm Assessment and Plan (1) Chest pain Status: Resolved (2) 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 Status: Chronic (3) PNA (pneumonia) Status: Ruled-out (4) COPD (chronic obstructive pulmonary disease) Status: Chronic (5) UTI (urinary tract infection) Status: Ruled-out (6) Kyugd-ie-ahewdhn kidney injury Status: Deleted (7) Sepsis Status: Ruled-out (8) Anemia Status: Acute (9) Acute kidney injury 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: Acute (10) SIRS (systemic inflammatory response syndrome) Status: Acute (11) Aortic stenosis Status: Chronic (12) Hyperglycemia Status: Acute (13) DMII (diabetes mellitus, type 2) Status: Chronic (14) HTN (hypertension) Status: Chronic (15) Generalized weakness Status: Chronic - Assessment and Plan (Free Text) Plan: continue Januvia, Glucotrol, Epogen, Lasix, Lopressor,ASA, Cardiac Cath for defered
--- NOTE | 2018-10-30 07:13 | CP.PCM.PN ---
Subjective - Date & Time of Evaluation Date of Evaluation: 10/30/18 Time of Evaluation: 06:45 - Subjective Subjective: patient has no new complaints. no chest pain or dyspnea. Objective - Vital Signs/Intake and Output Vital Signs (last 24 hours): Temp Pulse Resp BP Pulse Ox 98.5 F 68 20 151/77 H 93 L 10/30/18 05:08 10/30/18 05:08 10/30/18 05:08 10/30/18 05:08 10/30/18 05:08 - Medications Medications: Current Medications Amlodipine Besylate (Norvasc) 5 mg PO DAILY [facility] Last Admin: 10/29/18 12:35 Dose: 5 mg Aspirin (Aspirin) 325 mg PO DAILY [facility] Last Admin: 10/29/18 09:14 Dose: 325 mg Atorvastatin Calcium (Lipitor) 40 mg PO DAILY [facility] Last Admin: 10/29/18 08:32 Dose: 40 mg Epoetin Neo (Procrit) 10,000 unit SC MWF [facility] Last Admin: 10/27/18 09:05 Dose: 10,000 unit Ergocalciferol (Drisdol 50,000 Intl Units Cap) 1 cap PO Q7D [facility] Last Admin: 10/27/18 15:07 Dose: 1 cap Furosemide (Lasix) 40 mg PO DAILY [facility] Stop: 11/03/18 09:46 Last Admin: 10/29/18 12:34 Dose: 40 mg Glipizide (Glucotrol) 5 mg PO BID [facility] Last Admin: 10/29/18 16:08 Dose: 5 mg Metoprolol Tartrate (Lopressor) 75 mg PO Q12 [facility] Last Admin: 10/29/18 20:39 Dose: 75 mg Sitagliptin Phosphate (Januvia) 25 mg PO DAILY [facility] Last Admin: 10/29/18 08:32 Dose: 25 mg Vitamin B Complex/Vit C/Folic Acid (Nephro-Ivonne) 1 tab PO DAILY [facility] Last Admin: 10/29/18 08:32 Dose: 1 tab - Labs Labs: 10/27/18 04:35 10/27/18 04:35 PT 11.5 Seconds (9.8-13.1) 10/21/18 16:16 INR 1.0 10/21/18 16:16 APTT 23.5 Seconds (25.6-37.1) L 10/21/18 16:16 - Constitutional Appears: Non-toxic - Head Exam Head Exam: NORMAL INSPECTION - Eye Exam Eye Exam: Normal appearance - ENT Exam ENT Exam: Mucous Membranes Moist - Neck Exam Neck Exam: Full ROM - Respiratory Exam Respiratory Exam: NORMAL BREATHING PATTERN - Cardiovascular Exam Cardiovascular Exam: REGULAR RHYTHM - GI/Abdominal Exam GI & Abdominal Exam: Normal Bowel Sounds - Rectal Exam Rectal Exam: Deferred - Extremities Exam Extremities Exam: absent: Pedal Edema - Back Exam Back Exam: NORMAL INSPECTION - Neurological Exam Neurological Exam: Alert - Psychiatric Exam Psychiatric exam: Normal Affect - Skin Skin Exam: Normal Color Assessment and Plan (1) 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 Assessment & Plan: improved at present. will continue medical therapy for Status: Chronic (2) Anemia Assessment & Plan: stable Status: Acute (3) Aortic stenosis Assessment & Plan: will defer coronary angiogram at this time. Patient is stable from a cardiac standpoint. Blood pressure control Status: Chronic (4) HTN (hypertension) Assessment & Plan: avoid hypotension Status: Chronic
[2018-10-30] MEDS: Multivitamin Vitamin B Complex (Nephro-Vite) Tab PO SCH (09:24)
[2018-10-30] MEDS: EPOETIN ALFA 10,000 UNIT/ML ML SC SCH (09:31)
--- NOTE | 2018-10-30 09:46 | CP.PCM.PN ---
Subjective - Date & Time of Evaluation Date of Evaluation: 10/30/18 Time of Evaluation: 09:45 - Subjective Subjective: Patient is sitting job and he is eating his breakfast Patient appears to be comfortable no shortness of breath no difficulty breathing no chest pain Objective - Vital Signs/Intake and Output Vital Signs (last 24 hours): Temp Pulse Resp BP Pulse Ox 97.6 F 66 18 168/73 H 99 10/30/18 08:18 10/30/18 08:18 10/30/18 08:18 10/30/18 09:25 10/30/18 08:18 - Medications Medications: Current Medications Amlodipine Besylate (Norvasc) 5 mg PO DAILY [facility] Last Admin: 10/30/18 09:27 Dose: 5 mg Aspirin (Aspirin) 325 mg PO DAILY [facility] Last Admin: 10/30/18 09:22 Dose: 325 mg Atorvastatin Calcium (Lipitor) 40 mg PO DAILY [facility] Last Admin: 10/30/18 09:26 Dose: 40 mg Epoetin Neo (Procrit) 10,000 unit SC MWF [facility] Last Admin: 10/30/18 09:31 Dose: 10,000 unit Ergocalciferol (Drisdol 50,000 Intl Units Cap) 1 cap PO Q7D [facility] Last Admin: 10/27/18 15:07 Dose: 1 cap Furosemide (Lasix) 40 mg PO DAILY [facility] Stop: 11/03/18 09:46 Last Admin: 10/30/18 09:25 Dose: 40 mg Glipizide (Glucotrol) 5 mg PO BID [facility] Last Admin: 10/30/18 09:25 Dose: 5 mg Metoprolol Tartrate (Lopressor) 75 mg PO Q12 [facility] Last Admin: 10/30/18 09:26 Dose: 75 mg Sitagliptin Phosphate (Januvia) 25 mg PO DAILY [facility] Last Admin: 10/30/18 09:24 Dose: 25 mg Vitamin B Complex/Vit C/Folic Acid (Nephro-Ivonne) 1 tab PO DAILY [facility] Last Admin: 10/30/18 09:24 Dose: 1 tab - Labs Labs: 10/27/18 04:35 10/27/18 04:35 PT 11.5 Seconds (9.8-13.1) 10/21/18 16:16 INR 1.0 10/21/18 16:16 APTT 23.5 Seconds (25.6-37.1) L 10/21/18 16:16 - Constitutional Appears: No Acute Distress - Eye Exam Eye Exam: Conjunctival injection - ENT Exam ENT Exam: Mucous Membranes Moist - Neck Exam Neck Exam: absent: Lymphadenopathy - Respiratory Exam Respiratory Exam: NORMAL BREATHING PATTERN. absent: Chest Wall Tenderness, Rho nchi - GI/Abdominal Exam GI & Abdominal Exam: Soft, Normal Bowel Sounds. absent: Guarding - Extremities Exam Extremities Exam: absent: Calf Tenderness - Back Exam Back Exam: absent: CVA tenderness (L), CVA tenderness (R) - Neurological Exam Neurological Exam: Alert - Psychiatric Exam Psychiatric exam: Normal Affect - Skin Skin Exam: absent: Cyanosis Assessment and Plan (1) Acute kidney injury superimposed on CKD Assessment & Plan: KENJI/CKD stage 4/pulm edema/anemia/chf/dm/lactic acidosis/NSTEMI/COPD/hyponat remia monitor UOP cr stable BUN slowly trending down , no acute need for dialysis renal fxn stable procrit [id number] subcut & iv iron volume status looks improved Change the diet to normal sodium diet We will consider to put Lasix on hold if sodium still dropping Status: Acute (2) Acute pulmonary edema Status: Acute (3) NSTEMI (non-ST elevated myocardial infarction) Status: Acute
[2018-10-30 10:26] LABS: ALBUMIN (PEP) 3.3 g/dL (3.8-4.8); ALPHA-1-GLOBULIN (PEP) 0.4 g/dL (0.2-0.3)
[2018-10-30 11:02] LABS: HEMOGLOBIN 9.2 g/dL (12.0-18.0); MEAN CELL VOLUME 92.4 fl (80.0-94.0); MEAN CORPUSCULAR HEMOGLOBIN 29.9 pg (27.0-31.0); MEAN CORPUSCULAR HGB CONC 32.4 g/dL (33.0-37.0); RBC 3.07 Mil/uL (4.40-5.90); RED CELL DISTRIBUTION WIDTH 19.5 % (11.5-14.5); WHITE BLOOD COUNT 9.9 K/uL (4.8-10.8)
[2018-10-30 11:18] LABS: ALB/GLOB RATIO 1.3 (1.0-2.1); ALBUMIN 3.7 g/dL (3.5-5.0); CALCIUM 9.7 mg/dL (8.4-10.2)
--- NOTE | 2018-10-30 16:57 | CP.PCM.PN ---
Subjective - Date & Time of Evaluation Date of Evaluation: 10/30/18 Time of Evaluation: 11:40 - Subjective Subjective: F/U KENJI no AD,N/C , eating well Objective - Vital Signs/Intake and Output Vital Signs (last 24 hours): Temp Pulse Resp BP Pulse Ox 97.6 F 68 17 140/66 98 10/30/18 15:56 10/30/18 15:56 10/30/18 15:56 10/30/18 15:56 10/30/18 15:56 - Medications Medications: Current Medications Amlodipine Besylate (Norvasc) 5 mg PO DAILY [facility] Last Admin: 10/30/18 09:27 Dose: 5 mg Aspirin (Aspirin) 325 mg PO DAILY [facility] Last Admin: 10/30/18 09:22 Dose: 325 mg Atorvastatin Calcium (Lipitor) 40 mg PO DAILY [facility] Last Admin: 10/30/18 09:26 Dose: 40 mg Epoetin Neo (Procrit) 10,000 unit SC MWF [facility] Last Admin: 10/30/18 09:31 Dose: 10,000 unit Ergocalciferol (Drisdol 50,000 Intl Units Cap) 1 cap PO Q7D [facility] Last Admin: 10/27/18 15:07 Dose: 1 cap Furosemide (Lasix) 40 mg PO DAILY [facility] Stop: 11/03/18 09:46 Last Admin: 10/30/18 09:25 Dose: 40 mg Glipizide (Glucotrol) 5 mg PO BID [facility] Last Admin: 10/30/18 09:25 Dose: 5 mg Metoprolol Tartrate (Lopressor) 75 mg PO Q12 [facility] Last Admin: 10/30/18 09:26 Dose: 75 mg Sitagliptin Phosphate (Januvia) 25 mg PO DAILY [facility] Last Admin: 10/30/18 09:24 Dose: 25 mg Vitamin B Complex/Vit C/Folic Acid (Nephro-Ivonne) 1 tab PO DAILY [facility] Last Admin: 10/30/18 09:24 Dose: 1 tab - Labs Labs: 10/30/18 10:55 10/30/18 10:55 PT 11.5 Seconds (9.8-13.1) 10/21/18 16:16 INR 1.0 10/21/18 16:16 APTT 23.5 Seconds (25.6-37.1) L 10/21/18 16:16 - Constitutional Appears: No Acute Distress - Head Exam Head Exam: NORMAL INSPECTION - Eye Exam Eye Exam: PERRL - ENT Exam ENT Exam: Normal Exam - Neck Exam Neck Exam: Normal Inspection - Respiratory Exam Respiratory Exam: Decreased Breath Sounds (at bases) - Cardiovascular Exam Cardiovascular Exam: REGULAR RHYTHM, Murmur (systolic) - GI/Abdominal Exam GI & Abdominal Exam: Soft, Normal Bowel Sounds - Extremities Exam Extremities Exam: Normal Inspection - Back Exam Back Exam: NORMAL INSPECTION - Neurological Exam Neurological Exam: Alert, Oriented x3 Additional comments: No focal motor/sensory deficit, generalized weakness. 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 Status: Chronic (3) PNA (pneumonia) Status: Ruled-out (4) COPD (chronic obstructive pulmonary disease) Status: Chronic (5) UTI (urinary tract infection) Status: Ruled-out (6) Sepsis Status: Ruled-out (7) Anemia Status: Acute (8) Acute kidney injury 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: Acute (9) SIRS (systemic inflammatory response syndrome) Status: Acute (10) Aortic stenosis Status: Chronic (11) Hyperglycemia Status: Acute (12) DMII (diabetes mellitus, type 2) Status: Chronic (13) HTN (hypertension) Status: Chronic (14) Generalized weakness Status: Chronic - Assessment and Plan (Free Text) Plan: f/u BUN, Creat, Na, K 5.3, Renal, Cardiology f/u appreciated
[2018-10-31 05:28] LABS: ALB/GLOB RATIO 1.3 (1.0-2.1); ALBUMIN 3.6 g/dL (3.5-5.0); CALCIUM 9.5 mg/dL (8.4-10.2)
[2018-10-31 07:47] VITALS: RESP 18
[2018-10-31] MEDS: Multivitamin Vitamin B Complex (Nephro-Vite) Tab PO SCH (08:44)
[2018-10-31 11:41] VITALS: BP 137/68; PULSE 62; TEMP 97.6; O2SAT 96
--- NOTE | 2018-10-31 13:03 | CP.PCM.PN ---
Subjective - Date & Time of Evaluation Date of Evaluation: 10/31/18 Time of Evaluation: 13:01 - Subjective Subjective: Patient awake and conscious and he is feeling much better no shortness of breath no difficulty breathing Patient is up and around Objective - Vital Signs/Intake and Output Vital Signs (last 24 hours): Temp Pulse Resp BP Pulse Ox 97.6 F 62 18 137/68 96 10/31/18 11:41 10/31/18 11:41 10/31/18 11:41 10/31/18 11:41 10/31/18 11:41 - Medications Medications: Current Medications Amlodipine Besylate (Norvasc) 5 mg PO DAILY [facility] Last Admin: 10/31/18 08:47 Dose: 5 mg Aspirin (Aspirin) 325 mg PO DAILY [facility] Last Admin: 10/31/18 08:44 Dose: 325 mg Atorvastatin Calcium (Lipitor) 40 mg PO DAILY [facility] Last Admin: 10/31/18 08:44 Dose: 40 mg Epoetin Neo (Procrit) 10,000 unit SC MWF [facility] Last Admin: 10/30/18 09:31 Dose: 10,000 unit Ergocalciferol (Drisdol 50,000 Intl Units Cap) 1 cap PO Q7D [facility] Last Admin: 10/27/18 15:07 Dose: 1 cap Furosemide (Lasix) 40 mg PO DAILY [facility] Stop: 11/03/18 09:46 Last Admin: 10/31/18 08:45 Dose: Not Given Glipizide (Glucotrol) 5 mg PO BID [facility] Last Admin: 10/31/18 08:47 Dose: 5 mg Metoprolol Tartrate (Lopressor) 75 mg PO Q12 [facility] Last Admin: 10/31/18 08:46 Dose: 75 mg Sitagliptin Phosphate (Januvia) 25 mg PO DAILY [facility] Last Admin: 10/31/18 08:45 Dose: 25 mg Vitamin B Complex/Vit C/Folic Acid (Nephro-Ivonne) 1 tab PO DAILY [facility] Last Admin: 10/31/18 08:44 Dose: 1 tab - Labs Labs: 10/30/18 10:55 10/31/18 04:25 PT 11.5 Seconds (9.8-13.1) 10/21/18 16:16 INR 1.0 10/21/18 16:16 APTT 23.5 Seconds (25.6-37.1) L 10/21/18 16:16 - Constitutional Appears: No Acute Distress - Eye Exam Eye Exam: Conjunctival injection - ENT Exam ENT Exam: Mucous Membranes Moist - Respiratory Exam Respiratory Exam: NORMAL BREATHING PATTERN. absent: Chest Wall Tenderness, Rhonchi, Wheezes - Cardiovascular Exam Cardiovascular Exam: absent: Gallop, JVD, Rubs - GI/Abdominal Exam GI & Abdominal Exam: Soft, Normal Bowel Sounds - Extremities Exam Extremities Exam: absent: Calf Tenderness - Back Exam Back Exam: absent: CVA tenderness (L), CVA tenderness (R) - Neurological Exam Neurological Exam: Alert - Psychiatric Exam Psychiatric exam: Normal Affect - Skin Skin Exam: absent: Cyanosis Assessment and Plan (1) Acute kidney injury superimposed on CKD Assessment & Plan: KENJI/CKD stage 4/pulm edema/anemia/chf/dm/lactic acidosis/NSTEMI/COPD/hyponatremi a Plan Hyponatremia corrected BUN/creatinine rising again slowly probably related to the Lasix therefore we will hold Lasix for maybe 2-3 days to be monitor his breathing and his weight and later on perhaps he may need lesser dose of Lasix perhaps 20 mg Status: Acute (2) Acute pulmonary edema Status: Acute (3) NSTEMI (non-ST elevated myocardial infarction) Status: Acute
--- NOTE | 2018-10-31 15:46 | CP.PCM.DIS ---
Provider - Provider Date of Admission: 10/21/18 17:27 Attending physician: Logan Stockton MD Consults: 10/22/18 07:00 Physician Consult Routine Comment: Consulting Provider: Amadou Bhardwaj Consulting Physician: Amadou Bhardwaj Reason for Consult: elevated trop, CHF 10/22/18 09:42 Nephrology Consult Routine Comment: your patient Consulting Provider: Edenilson Nair Consulting Physician: Edenilson Nair Reason for Consult: CKD-4, anemia, metabolic acidosis 10/22/18 11:13 Gastroenterology Consult Routine Comment: Consulting Provider: Adryan Dickens Consulting Physician: Adryan Dickens Reason for Consult: anemia Hg of 6.2 Hematology Oncology Consult Routine Comment: Consulting Provider: Manish Durand Consulting Physician: Manish Durand Reason for Consult: anemia, Hg of 6.2 on admission Diagnosis - Discharge Diagnosis (1) Chest pain Status: Resolved Priority: High (2) 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 Status: Chronic Priority: High (3) PNA (pneumonia) Status: Ruled-out Priority: High (4) COPD (chronic obstructive pulmonary disease) Status: Chronic Priority: High (5) UTI (urinary tract infection) Status: Ruled-out Priority: High (6) Sepsis Status: Ruled-out Priority: High (7) Anemia Status: Acute Priority: High (8) Acute kidney injury 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: Acute (9) SIRS (systemic inflammatory response syndrome) Status: Acute (10) Aortic stenosis Status: Chronic Priority: High (11) Hyperglycemia Status: Acute Priority: High (12) DMII (diabetes mellitus, type 2) Status: Chronic Priority: Medium (13) HTN (hypertension) Status: Chronic Priority: Medium (14) Generalized weakness Status: Chronic Priority: High Hospital Course - Lab Results Lab Results: Micro Results 10/27/18 13:27 Naris MRSA Culture (Admit) - Final MRSA NOT DETECTED 10/21/18 16:16 Blood-Venous Blood Culture - Final NO GROWTH AFTER 5 DAYS 10/21/18 16:16 Blood-Venous Gram Stain - Final TEST NOT PERFORMED 10/23/18 14:00 Urine,Garza Urine Culture - Final No Growth (<1,000 CFU/ML) 10/21/18 08:40 Naris MRSA Culture (Admit) - Final MRSA NOT DETECTED Most Recent Lab Values WBC 9.9 K/uL (4.8-10.8) 10/30/18 10:55 RBC 3.07 Mil/uL (4.40-5.90) L 10/30/18 10:55 Hgb 9.2 g/dL (12.0-18.0) L 10/30/18 10:55 Hct 28.3 % (35.0-51.0) L 10/30/18 10:55 MCV 92.4 fl (80.0-94.0) D 10/30/18 10:55 MCH 29.9 pg (27.0-31.0) 10/30/18 10:55 MCHC 32.4 g/dL (33.0-37.0) L 10/30/18 10:55 RDW 19.5 % (11.5-14.5) H 10/30/18 10:55 Plt Count 222 K/uL (130-400) 10/30/18 10:55 MPV 7.7 fl (7.2-11.7) 10/27/18 04:35 Neut % (Auto) 75.2 % (50.0-75.0) H 10/27/18 04:35 Lymph % (Auto) 7.1 % (20.0-40.0) L 10/27/18 04:35 [place] % (Auto) 13.8 % (0.0-10.0) H 10/27/18 04:35 Eos % (Auto) 3.5 % (0.0-4.0) 10/27/18 04:35 Baso % (Auto) 0.4 % (0.0-2.0) 10/27/18 04:35 Neut # (Auto) 6.6 K/uL (1.8-7.0) 10/27/18 04:35 Lymph # (Auto) 0.6 K/uL (1.0-4.3) L 10/27/18 04:35 [place] # (Auto) 1.2 K/uL (0.0-0.8) H 10/27/18 04:35 Eos # (Auto) 0.3 K/uL (0.0-0.7) 10/27/18 04:35 Baso # (Auto) 0.0 K/uL (0.0-0.2) 10/27/18 04:35 Neutrophils % (Manual) 71 % (42-75) 10/27/18 04:35 Band Neutrophils % 1 % (0-2) 10/27/18 04:35 Lymphocytes % (Manual) 8 % (20-50) L 10/27/18 04:35 Monocytes % (Manual) 14 % (0-10) H 10/27/18 04:35 Eosinophils % (Manual) 4 % (0-7) 10/27/18 04:35 Myelocytes % 2 % (0-0) H 10/27/18 04:35 Platelet Estimate Normal (NORMAL) 10/27/18 04:35 Hypochromasia (manual) Slight 10/21/18 23:59 Poikilocytosis (manual Slight 10/27/18 04:35 Anisocytosis (manual) Slight 10/27/18 04:35 Spherocytes Slight 10/27/18 04:35 Tear Drop Cells Slight 10/27/18 04:35 Ovalocytes Slight 10/27/18 04:35 Schistocytes Slight 10/27/18 04:35 Retic Count 4.2 % (0.5-1.5) H 10/22/18 11:00 PT 11.5 Seconds (9.8-13.1) 10/21/18 16:16 INR 1.0 10/21/18 16:16 APTT 23.5 Seconds (25.6-37.1) L 10/21/18 16:16 D-Dimer, Quantitative 2433 ng/mlDDU (0-230) H 10/21/18 16:16 pCO2 35 mm/Hg (35-45) 10/21/18 16:15 pO2 134 mm/Hg (80-100) H 10/21/18 16:15 HCO3 9.4 mmol/L (21-28) L* 10/21/18 16:15 ABG pH 7.05 (7.35-7.45) L* 10/21/18 16:15 ABG Total CO2 10.8 mmol/L (22-28) L 10/21/18 16:15 ABG O2 Saturation 99.5 % (95-98) H 10/21/18 16:15 ABG Base Excess -19.9 mmol/L (-2.0-3.0) L 10/21/18 16:15 Rashawn Test Yes 10/21/18 16:15 ABG Potassium 5.6 mmol/L (3.6-5.2) H 10/21/18 16:15 A-a O2 Difference 535.0 mm/Hg 10/21/18 16:15 Sodium 134.0 mmol/L (132-148) 10/21/18 16:15 Chloride 106.0 mmol/L (98-107) 10/21/18 16:15 Glucose 315 mg/dL (75-110) H 10/21/18 16:15 Lactate 8.1 mmol/L (0.7-2.1) H* 10/21/18 16:15 FiO2 100.0 % 10/21/18 16:15 Crit Value Called To Dr antonieta barba 10/21/18 16:15 Crit Value Called By Maryjane juarez rt 10/21/18 16:15 Crit Value Read Back Y 10/21/18 16:15 Blood Gas Notified Time 1623 10/21/18 16:15 Sodium 138 mmol/l (132-148) 10/31/18 04:25 Potassium 4.8 MMOL/L (3.6-5.0) 10/31/18 04:25 Chloride 104 mmol/L (98-107) 10/31/18 04:25 Carbon Dioxide 25 mmol/L (22-30) 10/31/18 04:25 Anion Gap 14 (10-20) 10/31/18 04:25 BUN 71 mg/dl (9-20) H 10/31/18 04:25 Creatinine 3.1 mg/dl (0.8-1.5) H 10/31/18 04:25 Est GFR ( Amer) 23 10/31/18 04:25 Est GFR (Non-Af Amer) 10/31/18 04:25 POC Glucose (mg/dL) 137 mg/dL (65-110) H 10/31/18 05:15 Random Glucose 139 mg/dL (75-110) H 10/31/18 04:25 Lactic Acid 1.4 MMOL/L (0.7-2.1) 10/22/18 03:40 Calcium 9.5 mg/dL (8.4-10.2) 10/31/18 04:25 Phosphorus 4.4 mg/dl (2.5-4.5) 10/31/18 04:25 Magnesium 2.0 MG/DL (1.6-2.3) 10/31/18 04:25 Iron 66 ug/dL (49-181) 10/22/18 11:00 TIBC 339 ug/dL (250-450) 10/22/18 11:00 % Saturation 19 % (20-55) L 10/22/18 11:00 Ferritin 19.1 ng/Ml (17.9-464) 10/22/18 11:00 Total Bilirubin 0.2 mg/dl (0.2-1.3) 10/31/18 04:25 AST 35 U/L (17-59) 10/31/18 04:25 ALT 58 U/L (21-72) 10/31/18 04:25 Alkaline Phosphatase 80 U/L (38-126) 10/31/18 04:25 Troponin I 18.8000 ng/mL (0.00-0.120) H* 10/21/18 23:59 NT-Pro-B Natriuret Pep 8850 pg/ml (0-900) H 10/21/18 16:16 Total Protein 6.5 G/DL (6.3-8.2) 10/31/18 04:25 Total Protein (PEP) 5.9 g/dL (6.1-8.1) L 10/27/18 04:35 Albumin 3.6 g/dL (3.5-5.0) 10/31/18 04:25 Albumin (PEP) 3.3 g/dL (3.8-4.8) L 10/27/18 04:35 Globulin 2.9 gm/dL (2.2-3.9) 10/31/18 04:25 Albumin/Globulin Ratio 1.3 (1.0-2.1) 10/31/18 04:25 Cmhqd-7-Iegufzjfv 0.4 g/dL (0.2-0.3) H 10/27/18 04:35 Ayjbs-3-Apkrqqnrw 0.7 g/dL (0.5-0.9) 10/27/18 04:35 Njuj-4-Hllnbuki 0.5 g/dL (0.4-0.6) 10/27/18 04:35 Xdmp-5-Bzgzxmlh 0.3 g/dL (0.2-0.5) 10/27/18 04:35 Gamma Globulins 0.7 g/dL (0.8-1.7) L 10/27/18 04:35 Abnorm Protein Band 1 TEST NOT PERFORMED 10/27/18 04:35 Abnorm Protein Band 2 TEST NOT PERFORMED 10/27/18 04:35 Abnorm Protein Band 3 TEST NOT PERFORMED 10/27/18 04:35 Vitamin B12 717 pg/mL (239-931) 10/22/18 11:00 25-OH Vitamin D Total 22.8 NG/ML (30.0-100.0) L 10/27/18 04:35 Folate 9.5 ng/mL 10/22/18 11:00 Procalcitonin 0.40 NG/ML (0.19-0.49) 10/22/18 09:00 PTH Intact Whole Molec 138 pg/mL (14-64) H 10/26/18 12:09 Arterial Blood Potassium 5.6 mmol/L (3.6-5.2) H 10/21/18 16:15 Urine Color Yellow (YELLOW) 10/21/18 16:16 Urine Clarity Cloudy (Clear) 10/21/18 16:16 Urine pH 5.0 (5.0-8.0) 10/21/18 16:16 Ur Specific [place] 1.014 (1.003-1.030) 10/21/18 16:16 Urine Protein 30 mg/dL (NEGATIVE) 10/21/18 16:16 Urine Glucose (UA) Neg mg/dL (NEGATIVE) 10/21/18 16:16 Urine Ketones Negative mg/dL (NEGATIVE) 10/21/18 16:16 Urine Blood Moderate (NEGATIVE) 10/21/18 16:16 Urine Nitrate Negative (NEGATIVE) 10/21/18 16:16 Urine Bilirubin Negative (NEGATIVE) 10/21/18 16:16 Urine Urobilinogen 0.2-1.0 mg/dL (0.2-1.0) 10/21/18 16:16 Ur Leukocyte Esterase Large Luna/uL (Negative) 10/21/18 16:16 Urine RBC (Auto) 17 /hpf (0-3) H 10/21/18 16:16 Urine WBC Clumps (Auto) Few /hpf (NONE) H 10/21/18 16:16 Urine Microscopic WBC 72 /hpf (0-5) H 10/21/18 16:16 Urine Bacteria Many (<OCC) H 10/21/18 16:16 Stool Occult Blood Negative (NEGATIVE) 10/22/18 13:00 RICARDO & SPEP Interp See note 10/27/18 04:35 Serum Immunofixation Not detected (Not Detected) 10/27/18 04:35 Tot [place]/Lambda Ratio 1.61 (1.29-2.55) 10/27/18 07:40 [place] Light Chain Anal 167 mg/dL (176-443) L 10/27/18 07:40 Lambda Light Chain Anal 104 mg/dL (91-240) 10/27/18 07:40 Influenza Typ A,B (EIA) Negative for flu a/b (NEGATIVE) 10/21/18 13:00 Blood Type A POSITIVE 10/22/18 00:40 Antibody Screen Negative 10/22/18 00:40 ROBI, Poly Interpret Negative (NEGATIVE) 10/22/18 00:40 Crossmatch See Detail 10/22/18 00:40 Crossmatch IS Only See Detail 10/22/18 00:40 BBK History Checked Patient has bt 10/22/18 00:40 Discharge Exam - Head Exam Head Exam: NORMAL INSPECTION Discharge Plan - Follow Up Plan Condition: CRITICAL Disposition: HOME/ ROUTINE Instructions: Heart Failure, Adult (DC), Chest Pain (DC), Acute Kidney Failure (DC), Anemia of Chronic Disease (DC) Additional Instructions: please follow up with on tuesday11/06/18 at 10:00am please follow up with and in 1 week Referrals: Stephon Nair MD [Staff Provider] - Anuel Benson MD [Family Provider] - Logan Stockton MD [Staff Provider] - Amadou Bhardwaj MD [Staff Provider] -
== END 2018-10-31 15:51 | disposition home or self-care (01) | DRG 280 ==
LOC: H.ER 15:12 → H.ERHOLD 17:27 → H.ICU/CCU 19:12 → H.TEL 10-27 19:13
PROVIDERS: ADMIT Internal Medicine Pulmonary Disease; ATTEND Internal Medicine Pulmonary Disease
PROC: 05HM33Z Insertion of Infusion Device into Right Internal Jugular Vein, Percutaneous Approach (ICD-10-PCS; principal; 2018-10-21)
PROC: 30233K1 Transfusion of Nonautologous Frozen Plasma into Peripheral Vein, Percutaneous Approach (ICD-10-PCS; 2018-10-22)
PROC: 30233N1 Transfusion of Nonautologous Red Blood Cells into Peripheral Vein, Percutaneous Approach (ICD-10-PCS; 2018-10-22)
DX: I21.4 Non-ST elevation (NSTEMI) myocardial infarction (principal); I50.33 Acute on chronic diastolic (congestive) heart failure; J96.91 Respiratory failure, unspecified with hypoxia; I13.0 Hypertensive heart and chronic kidney disease with heart failure and stage 1 through stage 4 chronic kidney disease, or unspecified chronic kidney disease; N18.4 Chronic kidney disease, stage 4 (severe); N17.9 Acute kidney failure, unspecified; E87.1 Hypo-osmolality and hyponatremia; E87.2 Acidosis; D63.1 Anemia in chronic kidney disease; D50.9 Iron deficiency anemia, unspecified; E11.22 Type 2 diabetes mellitus with diabetic chronic kidney disease; E11.65 Type 2 diabetes mellitus with hyperglycemia; I35.0 Nonrheumatic aortic (valve) stenosis; J44.9 Chronic obstructive pulmonary disease, unspecified; E78.00 Pure hypercholesterolemia, unspecified; Z87.442 Personal history of urinary calculi; Z87.891 Personal history of nicotine dependence; Z79.84 Long term (current) use of oral hypoglycemic drugs

== ENCOUNTER 2018-11-19 13:38 | Inpatient (IN) | payer MEDICARE ==
[2018-11-19 13:39] VITALS: BMI 24.3
[2018-11-19] MEDS ORDERED: Sodium Chloride 0.9% 1,000 ML IV STA (14:09)
--- NOTE | 2018-11-19 14:35 | ED PDOC ---
HPI: General Adult Time Seen by Provider: 11/19/18 13:50 Chief Complaint (Nursing): GI Problem Chief Complaint (Provider): LGIB History Per: Patient, Sourcing Internship Additional Complaint(s): Pt presents with 2 day h/o recta bleed with BM, had BM today without blood. Also reports generalized weakness and "anemia". Denies fever, CP, SOB, abdominal pain, nausea, vomiting. Pt has had similar sxs in past, last transfused 15 days ago. PMD: Dr. Stockton Past Medical History Reviewed: Nursing Documentation, Vital Signs Vital Signs: Last Vital Signs Temp 97.6 F 11/19/18 13:49 Pulse 78 11/19/18 13:49 Resp 18 11/19/18 13:49 BP 133/62 11/19/18 13:49 Pulse Ox 100 11/19/18 13:49 - Medical History PMH: Anemia, CHF, COPD, Diabetes (pre), Gastritis, HTN, Pancreatitis, Chronic Kidney Disease - Surgical History Surgical History: Carotid Endarterectomy, Hernia Repair - Family History Family History: States: Unknown Family Hx - Social History Current smoker - smoking cessation education provided: No Alcohol: None - Home Medications Home Medications: Ambulatory Orders Medication Instructions Recorded Dexlansoprazole [Dexilant] 60 mg PO DAILY 09/06/18 Aspirin [Adult Aspirin] 81 mg PO DAILY #30 tablet. 09/12/18 Metoprolol Tartrate [Lopressor] 75 mg PO Q12 #60 tab 09/12/18 SITagliptin [Januvia] 100 mg PO DAILY #30 tab 09/12/18 Ferrous Sulfate [Feosol] 325 mg PO DAILY 10/21/18 Losartan Potassium [Cozaar] 100 mg PO DAILY 10/21/18 Isosorbide Mononitrate [Imdur] 60 mg PO DAILY 11/19/18 Paricalcitol [Zemplar] 1 mcg PO DAILY 11/19/18 - Allergies Allergies/Adverse Reactions: Allergies Allergy/AdvReac Type Severity Reaction Status Date / Time No Known Allergies Allergy Verified 11/19/18 13:47 Review of Systems Constitutional: Positive for: Weakness. Negative for: Fever, Chills Cardiovascular: Negative for: Chest Pain Respiratory: Negative for: Cough, Shortness of Breath Gastrointestinal: Positive for: Hematochezia. Negative for: Nausea, Vomiting, Abdominal Pain, Diarrhea, Constipation Genitourinary Male: Negative for: Dysuria, Hematuria Musculoskeletal: Negative for: Back Pain Skin: Negative for: Rash, Lesions Neurological: Negative for: Headache, Dizziness Physical Exam - Reviewed Nursing Documentation Reviewed: Yes Vital Signs Reviewed: Yes - Physical Exam Appears: Positive for: Well, No Acute Distress Head Exam: Positive for: ATRAUMATIC, NORMAL INSPECTION Skin: Positive for: Warm, Dry, Pallor Eye Exam: Positive for: EOMI, PERRL, Other (Pale conjunctivae) Cardiovascular/Chest: Positive for: Regular Rate, Rhythm Respiratory: Positive for: Normal Breath Sounds. Negative for: Rales, Rhonchi, Wheezing Gastrointestinal/Abdominal: Positive for: Normal Exam, Bowel Sounds, Soft. Negative for: Tenderness Rectal: Positive for: Stool Is Heme: (Pending), Other (Optical Engineer: XAVI Maravilla). Negative for: Black Stool, Blood Streaked Stool, Hemorrhoids, Tenderness Extremity: Positive for: Normal ROM Neurologic/Psych: Positive for: Alert, purchasing department clerk II-XII, Oriented. Negative for: Facial Droop - Laboratory Results Result Diagrams: 11/24/18 09:10 11/24/18 09:10 - ECG O2 Sat by Pulse Oximetry: 100 Medical Decision Making Medical Decision Makin yo male with LGIB and generalized weakness. - labs - EKG - CXR - IVF - CT abd/pelvis Accession No. 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 FINDINGS: LUNGS: Increased lucencies especially within the bilateral upper lung valera compatible with underlying emphysema. Subtle atelectasis/infiltrate within the medial right upper lobe and hilar region. Prominence. PLEURA: No significant pleural effusion identified. No definite pneumothorax . CARDIOVASCULAR: Heart size appears within normal limits. No significant atherosclerotic calcification present. OSSEOUS STRUCTURES: Degenerative changes. VISUALIZED UPPER ABDOMEN: Unremarkable. OTHER FINDINGS: None. IMPRESSION: Subtle atelectasis/infiltrate within the medial right upper lobe and hilar region. Emphysematous changes. Right hilar prominence. Disposition - Clinical Impression Clinical Impression: Symptomatic anemia, UTI (urinary tract infection) - Patient ED Disposition Is Patient to be Admitted: Yes - Disposition Disposition Time: 15:59 Condition: STABLE - Pt Status Changed To: Hospital Disposition Of: Inpatient - Admit Certification Admit to Inpatient:: After my assessment, the patient will require hospitalization for at least two midnights. This is because of the severity of symptoms shown, intensity of services needed, and/or the medical risk in this patient being treated as an outpatient. - POA Present On Arrival: None
[2018-11-19 14:36] LABS: BASO % 0.1 % (0.0-2.0); EOS % 0.8 % (0.0-4.0); LYMPH # 0.4 K/uL (1.0-4.3); LYMPH % 6.2 % (20.0-40.0); MEAN CELL VOLUME 96.7 fl (80.0-94.0); MEAN CORPUSCULAR HEMOGLOBIN 31.6 pg (27.0-31.0); MEAN CORPUSCULAR HGB CONC 32.7 g/dL (33.0-37.0); MEAN PLATELET VOLUME 7.6 fl (7.2-11.7); MONO # 0.5 K/uL (0.0-0.8); MONO % 8.2 % (0.0-10.0); NEUT % 84.7 % (50.0-75.0); PLATELET COUNT 154 K/uL (130-400); RBC 1.99 Mil/uL (4.40-5.90); RED CELL DISTRIBUTION WIDTH 21.1 % (11.5-14.5); WHITE BLOOD COUNT 5.9 K/uL (4.8-10.8)
[2018-11-19 14:39] LABS: HEMOGLOBIN 6.3 g/dL (12.0-18.0)
[2018-11-19 14:44] LABS: PROTHROMBIN TIME 11.9 Seconds (9.8-13.1)
[2018-11-19 14:46] LABS: PARTIAL THROMBOPLASTIN TIME 28.6 Seconds (25.6-37.1)
--- NOTE | 2018-11-19 15:00 | RAD ---
HISTORY: [facility] COMPARISON: Chest x-ray performed 10/21/18, chest without contrast performed 10/23/18 TECHNIQUE: Chest, one view. FINDINGS: LUNGS: Increased lucencies especially within the bilateral upper lung valera compatible with underlying emphysema. Subtle atelectasis/infiltrate within the medial right upper lobe and hilar region. Prominence. PLEURA: No significant pleural effusion identified. No definite pneumothorax . CARDIOVASCULAR: Heart size appears within normal limits. No significant atherosclerotic calcification present. OSSEOUS STRUCTURES: Degenerative changes. VISUALIZED UPPER ABDOMEN: Unremarkable. OTHER FINDINGS: None. IMPRESSION: Subtle atelectasis/infiltrate within the medial right upper lobe and hilar region. Emphysematous changes. Right hilar prominence.
[2018-11-19 15:20] LABS: ALB/GLOB RATIO 1.3 (1.0-2.1); ALBUMIN 3.1 g/dL (3.5-5.0); ALT/SGPT 25 U/L (21-72); AST/SGOT 20 U/L (17-59); BLOOD UREA NITROGEN 54 mg/dl (9-20); CALCIUM 9.3 mg/dL (8.4-10.2); GFR NON-AFRICAN AMERICAN 16
[2018-11-19] MEDS ORDERED: Insulin Regular 100 units/ml IV STA (15:32)
[2018-11-19 15:34] LABS: BANDS 1 % (0-2); LYMPHOCYTE 6 % (20-50); MONOCYTE 7 % (0-10); MYELOCYTE 1 % (0-0); NEUTROPHIL 85 % (42-75); PLATELET ESTIMATE NORMAL (NORMAL); TOTAL CELLS COUNTED 100
[2018-11-19 15:37] LABS: SQUAMOUS EPITHIAL < 1 /hpf (0-5); URINE BACTERIA FEW (<OCC); URINE BILIRUBIN NEGATIVE (NEGATIVE); URINE BLOOD MODERATE (NEGATIVE); URINE CLARITY SLIGHTY-CLOUDY (Clear); URINE COLOR YELLOW (YELLOW); URINE GLUCOSE (UA) NEG (NEGATIVE); URINE LEUKOCYTE ESTERASE NEG Leu/uL (Negative); URINE PROTEIN 30 mg/dL (NEGATIVE); URINE UROBILINOGEN 0.2-1.0 mg/dL (0.2-1.0)
[2018-11-19 15:37] LABS: ANISOCYTOSIS MARKED; HYPOCHROMIC SLIGHT
[2018-11-19] MEDS ORDERED: Insulin Regular 100 units/ml ONE (15:59)
[2018-11-20] MEDS ORDERED: Pantoprazole 40 mg EC Tab PO SCH (09:00)
[2018-11-20] MEDS ORDERED: Patient's Own Med (Paricalcitol [Zemplar] 1 MCG) PO SCH (09:00)
--- NOTE | 2018-11-20 10:04 | CP.PCM.CON ---
History of Present Illness - History of Present Illness History of Present Illness: This patient who is 83 years of age male I was called to see him for abnormal kidney function. He presented with rectal bleeding and he was found in the emergency room with very low hemoglobin required to be transfused and admitted for further evaluation. Patient was in this hospital recently with hyponatremia and COPD history chronic kidney disease stage IV in addition that possible acute myocardial infarction non-ST elevation at that time Past medical history as noted above Social history not contributory Review of Systems - Constitutional Constitutional: Anorexia. absent: Chills - Cardiovascular Cardiovascular: absent: Acrocyanosis, Chest Pain, Dyspnea, Edema - Respiratory Respiratory: absent: Cough, Dyspnea - Gastrointestinal Gastrointestinal: Abdominal Pain, Melena - Genitourinary Genitourinary: Nocturia - Musculoskeletal Musculoskeletal: absent: Numbness - Neurological Neurological: absent: Confusion, Focal Weakness, Headaches - Psychiatric Psychiatric: absent: Anxiety - Endocrine Endocrine: Fatigue - Hematologic/Lymphatic Hematologic: absent: Easy Bleeding Past Patient History - Past Medical History & Family History Past Medical History?: Yes - Past Social History Smoking Status: Former Smoker - CARDIAC Hx Cardiac Disorders: Yes - PULMONARY Hx Respiratory Disorders: Yes - NEUROLOGICAL Hx Neurological Disorder: Yes (Radiculopathy) Hx Dizziness: Yes - HEENT Hx HEENT Problems: Yes Hx Cataracts: Yes - RENAL Hx Chronic Kidney Disease: Yes - ENDOCRINE/METABOLIC Hx Endocrine Disorders: Yes - HEMATOLOGICAL/ONCOLOGICAL Hx Anemia: Yes - INTEGUMENTARY Hx Dermatological Problems: No - MUSCULOSKELETAL/RHEUMATOLOGICAL Hx Musculoskeletal Disorders: Yes Hx Back Pain: Yes Hx Falls: No - GASTROINTESTINAL Hx Gastritis: Yes Hx Pancreatitis: Yes - GENITOURINARY/GYNECOLOGICAL Hx Genitourinary Disorders: Yes (Bladder mass) - PSYCHIATRIC Hx Psychophysiologic Disorder: No Hx Substance Use: No - SURGICAL HISTORY Hx Carotid Endarterectomy: Yes - ANESTHESIA Hx Anesthesia: Yes (anton ding) Hx Anesthesia Reactions: No Hx Malignant Hyperthermia: No Meds Allergies/Adverse Reactions: Allergies Allergy/AdvReac Type Severity Reaction Status Date / Time No Known Allergies Allergy Verified 11/19/18 13:47 - Medications Medications: Current Medications Aspirin (Ecotrin) 81 mg PO DAILY ASHLEY Ferrous Sulfate (Feosol) 325 mg PO DAILY ASHLEY Home Med (Paricalcitol [Zemplar]) 1 mcg PO DAILY ASHLEY Isosorbide Mononitrate (Imdur) 60 mg PO DAILY ASHLEY Losartan Potassium (Cozaar) 100 mg PO DAILY [facility] Metoprolol Tartrate (Lopressor) 75 mg PO Q12 [facility] Last Admin: 11/19/18 22:14 Dose: 75 mg Pantoprazole Sodium (Protonix Inj) 40 mg IVP Q12 [facility] Physical Exam - Constitutional Appears: No Acute Distress - Eye Exam Eye Exam: absent: Conjunctival injection - ENT Exam ENT Exam: Mucous Membranes Moist - Neck Exam Neck exam: Negative for: Lymphadenopathy - Respiratory Exam Respiratory Exam: absent: Chest Wall Tenderness, Rhonchi - Cardiovascular Exam Cardiovascular Exam: absent: Gallop, JVD, Rubs - GI/Abdominal Exam GI & Abdominal Exam: Guarding, Normal Bowel Sounds. absent: Distended - Extremities Exam Extremities exam: Negative for: calf tenderness - Back Exam Back exam: absent: CVA tenderness (L), CVA tenderness (R) - Neurological Exam Neurological exam: Alert Results - Vital Signs Recent Vital Signs: Last Vital Signs Temp 98.1 F 11/20/18 09:15 Pulse 72 11/20/18 09:15 Resp 20 11/20/18 09:15 BP 159/73 H 11/20/18 09:15 Pulse Ox 99 11/20/18 09:15 - Labs Result Diagrams: 11/19/18 14:10 11/19/18 14:45 Labs: Laboratory Results - last 24 hr 11/19/18 11/19/18 11/19/18 14:10 14:10 14:10 WBC 5.9 RBC 1.99 L Hgb 6.3 L* D Hct 19.2 L MCV 96.7 H D MCH 31.6 H MCHC 32.7 L RDW 21.1 H Plt Count 154 MPV 7.6 Neut % (Auto) 84.7 H Lymph % (Auto) 6.2 L Chaves % (Auto) 8.2 Eos % (Auto) 0.8 Baso % (Auto) 0.1 Neut # (Auto) 5.0 Lymph # (Auto) 0.4 L [place] # (Auto) 0.5 Eos # (Auto) 0.0 Baso # (Auto) 0.0 Neutrophils % (Manual) 85 H Band Neutrophils % 1 Lymphocytes % (Manual) 6 L Monocytes % (Manual) 7 Myelocytes % 1 H Platelet Estimate Normal Hypochromasia (manual) Slight Anisocytosis (manual) Marked Macrocytosis (manual) Slight PT INR APTT Sodium Potassium Chloride Carbon Dioxide Anion Gap BUN Creatinine Est GFR ( Amer) Est GFR (Non-Af Amer) POC Glucose (mg/dL) Random Glucose Calcium Total Bilirubin AST ALT Alkaline Phosphatase Total Protein Albumin Globulin Albumin/Globulin Ratio Urine Color Urine Clarity Urine pH Ur Specific [place] Urine Protein Urine Glucose (UA) Urine Ketones Urine Blood Urine Nitrate Urine Bilirubin Urine Urobilinogen Ur Leukocyte Esterase Urine RBC (Auto) Urine Microscopic WBC Ur Squamous Epith Cells Urine Bacteria Stool Occult Blood Positive H Blood Type A POSITIVE Antibody Screen Negative Crossmatch See Detail BBK History Checked Patient has bt 11/19/18 11/19/18 11/19/18 14:10 14:38 14:45 WBC RBC Hgb Hct MCV MCH MCHC RDW Plt Count MPV Neut % (Auto) Lymph % (Auto) [place] % (Auto) Eos % (Auto) Baso % (Auto) Neut # (Auto) Lymph # (Auto) [place] # (Auto) Eos # (Auto) Baso # (Auto) Neutrophils % (Manual) Band Neutrophils % Lymphocytes % (Manual) Monocytes % (Manual) Myelocytes % Platelet Estimate Hypochromasia (manual) Anisocytosis (manual) Macrocytosis (manual) PT 11.9 INR 1.0 APTT 28.6 Sodium 140 Potassium 5.1 H Chloride 111 H Carbon Dioxide 15 L Anion Gap 19 BUN 54 H Creatinine 3.7 H Est GFR ( Amer) 19 Est GFR (Non-Af Amer) 16 POC Glucose (mg/dL) 196 H Random Glucose 189 H Calcium 9.3 Total Bilirubin < 0.1 L AST 20 ALT 25 Alkaline Phosphatase 82 Total Protein 5.6 L Albumin 3.1 L Globulin 2.5 Albumin/Globulin Ratio 1.3 Urine Color Urine Clarity Urine pH Ur Specific [place] Urine Protein Urine Glucose (UA) Urine Ketones Urine Blood Urine Nitrate Urine Bilirubin Urine Urobilinogen Ur Leukocyte Esterase Urine RBC (Auto) Urine Microscopic WBC Ur Squamous Epith Cells Urine Bacteria Stool Occult Blood Blood Type Antibody Screen Crossmatch BBK History Checked 11/19/18 11/19/18 11/20/18 15:15 21:50 05:31 WBC RBC Hgb Hct MCV MCH MCHC RDW Plt Count MPV Neut % (Auto) Lymph % (Auto) [place] % (Auto) Eos % (Auto) Baso % (Auto) Neut # (Auto) Lymph # (Auto) [place] # (Auto) Eos # (Auto) Baso # (Auto) Neutrophils % (Manual) Band Neutrophils % Lymphocytes % (Manual) Monocytes % (Manual) Myelocytes % Platelet Estimate Hypochromasia (manual) Anisocytosis (manual) Macrocytosis (manual) PT INR APTT Sodium Potassium Chloride Carbon Dioxide Anion Gap BUN Creatinine Est GFR ( Amer) Est GFR (Non-Af Amer) POC Glucose (mg/dL) 97 111 H Random Glucose Calcium Total Bilirubin AST ALT Alkaline Phosphatase Total Protein Albumin Globulin Albumin/Globulin Ratio Urine Color Yellow Urine Clarity Slighty-cloudy Urine pH 6.0 Ur Specific [place] 1.014 Urine Protein 30 Urine Glucose (UA) Neg Urine Ketones Negative Urine Blood Moderate Urine Nitrate Negative Urine Bilirubin Negative Urine Urobilinogen 0.2-1.0 Ur Leukocyte Esterase Neg Urine RBC (Auto) 11 H Urine Microscopic WBC 5 Ur Squamous Epith Cells < 1 Urine Bacteria Few H Stool Occult Blood Blood Type Antibody Screen Crossmatch BBK History Checked Assessment & Plan (1) Acute kidney injury superimposed on CKD Assessment and Plan: Patient admitted with active GI bleeding with severe anemia Patient has a chronic kidney disease stage IV with super imposed acute kidney injury from the hemodynamic changes in the active GI bleeding. Metabolic acidosis Hypertension Severe anemia from the GI bleeding My recommendation Discontinue losartan temporarily Hydration gently Transfusion Evaluation Sodium bicarbonate p.o. Serum phosphorus and PTH Status: Acute (2) Anemia Status: Acute Priority: High
--- NOTE | 2018-11-20 11:28 | CARD ---
APPROVED REPORT Date of service: 11/19/2018 EKG Measurement Heart [id number] <Conclusion> Normal sinus rhythm Nonspecific ST and T wave abnormality Abnormal ECG
[2018-11-20 11:40] LABS: MEAN CELL VOLUME 92.5 fl (80.0-94.0); MEAN CORPUSCULAR HEMOGLOBIN 30.8 pg (27.0-31.0); MEAN CORPUSCULAR HGB CONC 33.3 g/dL (33.0-37.0); RBC 2.88 Mil/uL (4.40-5.90); RED CELL DISTRIBUTION WIDTH 18.6 % (11.5-14.5); WHITE BLOOD COUNT 6.1 K/uL (4.8-10.8)
[2018-11-20 11:43] LABS: HEMOGLOBIN 8.9 g/dL (12.0-18.0)
[2018-11-20 12:39] LABS: IRON 167 ug/dL (49-181)
[2018-11-20 12:48] LABS: % IRON SATURATION 59 % (20-55); TOTAL IRON BINDING CAPACITY 286 ug/dL (250-450)
[2018-11-20 13:21] LABS: FERRITIN 50.8 ng/Ml (17.9-464)
--- NOTE | 2018-11-20 14:43 | CP.PCM.HP ---
History of Present Illness - History of Present Illness History of Present Illness: CC: Rectal bleeding. 83 y/o M, with extensive chronic PMHx, including: CKD stage IV, Chronic anemia,UTI, HTN, NSTEMI, COPD, PNA, Intubated on due to Respiratory Failure, Pancreatitis, Metabolic Acidosis, DM. Pt came in to ER [facility] [place] on 11/19/18 for evaluation of rectal bleeding and weakness for 2 days [employer], associated to bright Red blood, mild epigastric pain, diarrhea, frequents night time urinations. Previous AD 10-31-18 Dx Iron deficiency anemia, treated with PRBC transfusion and Iron IV, Patient stated that had EGD , Colonoscopy after DD as out patient but He is not sure of diagnosis. Worsening symptoms: Weaknesses. On evaluation, found with very low Hgb 6.3 requiring PRBC transfusion. Also as per family, at times with mild SOB. Aggravated factor: walking/exercise. Pt denied: Fever, chills, n/v, CP, palpitations, SOB, cough, sick contact, recent travel out of [facility]. EKG: Normal sinus rhythm. CXR: Atelectasis/infiltrate within the medial RUL and Hilar region. Emphysematous changes R hilar prominence. Present on Admission - Present on Admission Any Indicators Present on Admission: No Review of Systems - Constitutional Constitutional: Weakness - EENT Eyes: Other (negative) Ears: Other (negative) Nose/Mouth/Throat: Other (negative) - Cardiovascular Cardiovascular: Leg Edema, Other (negative) - Respiratory Respiratory: Other (negative) - Gastrointestinal Gastrointestinal: Abdominal Pain (mild epigastric), Diarrhea - Genitourinary Genitourinary: Urinary Frequency - Musculoskeletal Musculoskeletal: Other (negative) - Integumentary Integumentary: Other (negative) - Neurological Neurological: Weakness - Psychiatric Psychiatric: Other (negative) - Endocrine Endocrine: Other (negative) - Hematologic/Lymphatic Hematologic: Other (anemia) Past Patient History - Past Medical History & Family History Past Medical History?: Yes Pertinent Family History: Unknown - Past Social History Smoking Status: Former Smoker (for 40 years) Alcohol: None Drugs: Denies Home Situation {Lives}: With Family - CARDIAC Hx Cardiac Disorders: Yes Hx Congestive Heart Failure: Yes (acute on chronic) Hx Hypertension: Yes - PULMONARY Hx Respiratory Disorders: Yes Hx Chronic Obstructive Pulmonary Disease (COPD): Yes Hx Pneumonia: Yes - NEUROLOGICAL Hx Neurological Disorder: Yes (Radiculopathy) Hx Dizziness: Yes - HEENT Hx HEENT Problems: Yes Hx Cataracts: Yes - RENAL Hx Chronic Kidney Disease: Yes Hx Kidney Stones: Yes Hx Renal Failure: Yes Other/Comment: 10-27-18 R Renal calculi multple, R hydronephrosis - ENDOCRINE/METABOLIC Hx Endocrine Disorders: Yes Hx Diabetes Mellitus Type 2: Yes - HEMATOLOGICAL/ONCOLOGICAL Hx Blood Disorders: Yes Hx Anemia: Yes Hx Blood Transfusions: Yes Hx Cancer: Yes ( 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) - INTEGUMENTARY Hx Dermatological Problems: No - MUSCULOSKELETAL/RHEUMATOLOGICAL Hx Musculoskeletal Disorders: Yes Hx Back Pain: Yes Hx Falls: No - GASTROINTESTINAL Hx Gastrointestinal Disorders: Yes Hx Constipation: Yes Hx Gastritis: Yes Hx Pancreatitis: Yes - GENITOURINARY/GYNECOLOGICAL 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) - PSYCHIATRIC Hx Psychophysiologic Disorder: No Hx Substance Use: No - SURGICAL HISTORY Hx Surgeries: Yes Hx Carotid Endarterectomy: Yes Hx Eye Surgery: Yes (Cataract b/l) Other/Comment: 08-01-17 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, trated with " bladder irrigation medication" for 6 month, f/u Cysto Patient was told He was "doing well" and did not follow appt with Urologist Dr Bowman - ANESTHESIA Hx Anesthesia: Yes (anton ding) Hx Anesthesia Reactions: No Hx Malignant Hyperthermia: No Meds Allergies/Adverse Reactions: Allergies Allergy/AdvReac Type Severity Reaction Status Date / Time No Known Allergies Allergy Verified 11/19/18 13:47 Physical Exam - Constitutional Appears: No Acute Distress - Head Exam Head Exam: NORMAL INSPECTION - Eye Exam Eye Exam: PERRL - ENT Exam ENT Exam: Normal Exam - Neck Exam Neck exam: Positive for: Normal Inspection - Respiratory Exam Respiratory Exam: Decreased Breath Sounds (at bases) - Cardiovascular Exam Cardiovascular Exam: REGULAR RHYTHM, Systolic Murmur - GI/Abdominal Exam GI & Abdominal Exam: Normal Bowel Sounds, Soft - Extremities Exam Extremities exam: Positive for: normal inspection - Back Exam Back exam: NORMAL INSPECTION - Neurological Exam Neurological exam: Alert, Oriented x3 Additional comments: Able to follow commands, no focal motor/sensory deficit, weakness - Psychiatric Exam Psychiatric exam: Normal Affect, Normal Mood - Skin Skin Exam: Normal Color, Warm Results - Vital Signs Recent Vital Signs: Last Vital Signs Temp 98.1 F 11/20/18 13:01 Pulse 76 11/20/18 13:01 Resp 20 11/20/18 13:01 BP 113/52 L 11/20/18 13:01 Pulse Ox 96 11/20/18 13:01 reviewed Johanna - Labs Result Diagrams: 11/22/18 04:55 11/22/18 04:55 Labs: Laboratory Results - last 24 hr 11/19/18 11/19/18 11/19/18 14:10 14:10 14:10 WBC RBC Hgb Hct MCV MCH MCHC RDW Plt Count Neutrophils % (Manual) 85 H Band Neutrophils % 1 Lymphocytes % (Manual) 6 L Monocytes % (Manual) 7 Myelocytes % 1 H Platelet Estimate Normal Hypochromasia (manual) Slight Anisocytosis (manual) Marked Macrocytosis (manual) Slight Retic Count PT INR APTT Sodium Potassium Chloride Carbon Dioxide Anion Gap BUN Creatinine Est GFR ( Amer) Est GFR (Non-Af Amer) POC Glucose (mg/dL) Random Glucose Calcium Phosphorus Iron TIBC % Saturation Ferritin Total Bilirubin AST ALT Alkaline Phosphatase Total Protein Albumin Globulin Albumin/Globulin Ratio Vitamin B12 Urine Color Urine Clarity Urine pH Ur Specific [place] Urine Protein Urine Glucose (UA) Urine Ketones Urine Blood Urine Nitrate Urine Bilirubin Urine Urobilinogen Ur Leukocyte Esterase Urine RBC (Auto) Urine Microscopic WBC Ur Squamous Epith Cells Urine Bacteria Stool Occult Blood Positive H Blood Type A POSITIVE Antibody Screen Negative Crossmatch See Detail BBK History Checked Patient has bt 11/19/18 11/19/18 11/19/18 14:10 14:38 14:45 WBC RBC Hgb Hct MCV MCH MCHC RDW Plt Count Neutrophils % (Manual) Band Neutrophils % Lymphocytes % (Manual) Monocytes % (Manual) Myelocytes % Platelet Estimate Hypochromasia (manual) Anisocytosis (manual) Macrocytosis (manual) Retic Count PT 11.9 INR 1.0 APTT 28.6 Sodium 140 Potassium 5.1 H Chloride 111 H Carbon Dioxide 15 L Anion Gap 19 BUN 54 H Creatinine 3.7 H Est GFR ( Amer) 19 Est GFR (Non-Af Amer) 16 POC Glucose (mg/dL) 196 H Random Glucose 189 H Calcium 9.3 Phosphorus Iron TIBC % Saturation Ferritin Total Bilirubin < 0.1 L AST 20 ALT 25 Alkaline Phosphatase 82 Total Protein 5.6 L Albumin 3.1 L Globulin 2.5 Albumin/Globulin Ratio 1.3 Vitamin B12 Urine Color Urine Clarity Urine pH Ur Specific [place] Urine Protein Urine Glucose (UA) Urine Ketones Urine Blood Urine Nitrate Urine Bilirubin Urine Urobilinogen Ur Leukocyte Esterase Urine RBC (Auto) Urine Microscopic WBC Ur Squamous Epith Cells Urine Bacteria Stool Occult Blood Blood Type Antibody Screen Crossmatch BBK History Checked 11/19/18 11/19/18 11/20/18 15:15 21:50 05:31 WBC RBC Hgb Hct MCV MCH MCHC RDW Plt Count Neutrophils % (Manual) Band Neutrophils % Lymphocytes % (Manual) Monocytes % (Manual) Myelocytes % Platelet Estimate Hypochromasia (manual) Anisocytosis (manual) Macrocytosis (manual) Retic Count PT INR APTT Sodium Potassium Chloride Carbon Dioxide Anion Gap BUN Creatinine Est GFR ( Amer) Est GFR (Non-Af Amer) POC Glucose (mg/dL) 97 111 H Random Glucose Calcium Phosphorus Iron TIBC % Saturation Ferritin Total Bilirubin AST ALT Alkaline Phosphatase Total Protein Albumin Globulin Albumin/Globulin Ratio Vitamin B12 Urine Color Yellow Urine Clarity Slighty-cloudy Urine pH 6.0 Ur Specific [place] 1.014 Urine Protein 30 Urine Glucose (UA) Neg Urine Ketones Negative Urine Blood Moderate Urine Nitrate Negative Urine Bilirubin Negative Urine Urobilinogen 0.2-1.0 Ur Leukocyte Esterase Neg Urine RBC (Auto) 11 H Urine Microscopic WBC 5 Ur Squamous Epith Cells < 1 Urine Bacteria Few H Stool Occult Blood Blood Type Antibody Screen Crossmatch BBK History Checked 11/20/18 11/20/18 11/20/18 10:55 11:26 12:30 WBC 6.1 RBC 2.88 L Hgb 8.9 L D Hct 26.6 L MCV 92.5 D MCH 30.8 MCHC 33.3 RDW 18.6 H Plt Count 163 Neutrophils % (Manual) Band Neutrophils % Lymphocytes % (Manual) Monocytes % (Manual) Myelocytes % Platelet Estimate Hypochromasia (manual) Anisocytosis (manual) Macrocytosis (manual) Retic Count 3.9 H PT INR APTT Sodium Potassium Chloride Carbon Dioxide Anion Gap BUN Creatinine Est GFR ( Amer) Est GFR (Non-Af Amer) POC Glucose (mg/dL) 82 Random Glucose Calcium Phosphorus Iron 167 TIBC 286 % Saturation 59 H Ferritin Total Bilirubin AST ALT Alkaline Phosphatase Total Protein Albumin Globulin Albumin/Globulin Ratio Vitamin B12 Urine Color Urine Clarity Urine pH Ur Specific [place] Urine Protein Urine Glucose (UA) Urine Ketones Urine Blood Urine Nitrate Urine Bilirubin Urine Urobilinogen Ur Leukocyte Esterase Urine RBC (Auto) Urine Microscopic WBC Ur Squamous Epith Cells Urine Bacteria Stool Occult Blood Blood Type Antibody Screen Crossmatch BBK History Checked 11/20/18 12:30 WBC RBC Hgb Hct MCV MCH MCHC RDW Plt Count Neutrophils % (Manual) Band Neutrophils % Lymphocytes % (Manual) Monocytes % (Manual) Myelocytes % Platelet Estimate Hypochromasia (manual) Anisocytosis (manual) Macrocytosis (manual) Retic Count PT INR APTT Sodium Potassium Chloride Carbon Dioxide Anion Gap BUN Creatinine Est GFR ( Amer) Est GFR (Non-Af Amer) POC Glucose (mg/dL) Random Glucose Calcium Phosphorus 3.1 Iron TIBC % Saturation Ferritin 50.8 Total Bilirubin AST ALT Alkaline Phosphatase Total Protein Albumin Globulin Albumin/Globulin Ratio Vitamin B12 831 Urine Color Urine Clarity Urine pH Ur Specific [place] Urine Protein Urine Glucose (UA) Urine Ketones Urine Blood Urine Nitrate Urine Bilirubin Urine Urobilinogen Ur Leukocyte Esterase Urine RBC (Auto) Urine Microscopic WBC Ur Squamous Epith Cells Urine Bacteria Stool Occult Blood Blood Type Antibody Screen Crossmatch BBK History Checked reviewed J.P. - EKG Data EKG comments: reviewed J.P. - Imaging and Cardiology Chest x-ray Status: Report reviewed by me (Johanna) Assessment & Plan (1) Hematochezia Status: Acute Priority: High (2) Anemia Status: Acute Priority: High (3) Acute kidney injury 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: Chronic Priority: High (4) Generalized weakness Status: Chronic Priority: High (5) Congestive heart failure (CHF) Assessment and Plan: Diastolic 2nd to Status: Chronic (6) Aortic stenosis Status: Chronic (7) COPD (chronic obstructive pulmonary disease) Status: Chronic Priority: Medium (8) DMII (diabetes mellitus, type 2) Status: Chronic Priority: Medium (9) Gastritis Status: Chronic Priority: Medium (10) HTN (hypertension) Status: Chronic Priority: Medium (11) Hx of bladder cancer Assessment and Plan: 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 Nephrology consult appreciated, GI consult. - Date & Time Date: 11/20/18 Time: 11:10
[2018-11-20] MEDS ORDERED: Iohexol 240 (50 ml) PO ONE (16:00)
--- NOTE | 2018-11-21 10:39 | CT ---
Date of service: 11/20/2018 PROCEDURE: CT Abdomen and Pelvis with contrast HISTORY: [facility] COMPARISON: Abdomen ultrasound 07/12/2017. TECHNIQUE: Helical CT of the abdomen and pelvis was performed following oral contrast administration only. Intravenous contrast was not administered as per referring physician request. Coronal and sagittal reformats were generated. Contrast dose: None Radiation dose: Total exam DLP = 444.07 mGy-cm. This CT exam was performed using one or more of the following dose reduction techniques: Automated exposure control, adjustment of the mA and/or kV according to patient size, and/or use of iterative reconstruction technique. FINDINGS: LOWER THORAX: Unremarkable. LIVER: A small cyst is reiterated in the dome of right lobe liver measuring 2.0 cm greatest dimension and 4 Hounsfield units. With remainder of the unenhanced liver unremarkable otherwise. GALLBLADDER AND BILE DUCTS: Cholelithiasis identified within a contracted gallbladder. No pericholecystic fluid collection or gross mural thickening evident. PANCREAS: Unremarkable. No gross lesion or ductal dilatation. SPLEEN: Unremarkable. ADRENALS: Right adrenal gland appears unremarkable. There is a nodule identified with the lower portion left adrenal gland measuring 2.3 x 1.1 cm and 2 Hounsfield units compatible with a benign adrenal adenoma. KIDNEYS AND URETERS: There is right hydronephrosis and a dilated right renal pelvis containing hyperdense material at the level of the pelvis measuring 45 Hounsfield units suspicious for hematoma or possible mass. The right ureter is normal caliber throughout. Intrarenal hilar vascular calcifications are identified bilaterally. VASCULATURE: The abdominal aorta is atherosclerotic with numerous calcifications associated mural thickening. There is a segment of the infrarenal abdominal aorta measuring up to 3.9 cm greatest transverse dimension suggestive of very mild aneurysm with the terminal abdominal aorta normal in caliber measuring 2.1 cm. However, within this normal caliber of distal abdominal aorta is potential dissection with linear mural plaque identified at the left abdominal aorta wall. BOWEL: Ascending colon transverse segment appears thick-walled sparing the cecal base. Mural reaction is identified into the pericolic fat as well particularly the proximal ascending segment suspicious for segmental colitis. No associated diverticular changes. Small bowel is unremarkable grossly. No bowel obstruction identified. Limited sigmoid diverticular changes without diverticulitis. APPENDIX: Not identified. No CT evidence of appendicitis. PERITONEUM: Unremarkable. No free fluid. No free air. LYMPH NODES: Unremarkable. No enlarged lymph nodes. BLADDER: The urinary bladder is not adequately distended with mural thickening difficult to exclude or evaluate. REPRODUCTIVE: Large prostate gland evident. BONES: No acute fracture. OTHER FINDINGS: None. IMPRESSION: 1. Hematoma or soft tissue lesion obstructing the right ureteropelvic junction/right renal pelvis with mild right hydronephrosis identified. Intrarenal calculi are suspected with multiple calices of the right kidney. No left-sided obstructive uropathy. Urological consultation is advised as neoplasm is not excluded here. 2. Segmental colitis right hemicolon through transverse large-bowel segment. No abscess or free air. Local pericolic reaction as discussed above. 3. Cholelithiasis within a contracted gallbladder. Stable hepatic cyst near the dome. 4. Sigmoid diverticulosis appears mild, without diverticulitis. 5. 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 6. Enlarged prostate gland. Preliminary report provided by Darron, 11/20/2018, 8:10 p.m..
--- NOTE | 2018-11-21 10:56 | CP.PCM.PN ---
Subjective - Date & Time of Evaluation Date of Evaluation: 11/21/18 Time of Evaluation: 10:54 - Subjective Subjective: Patient is awake and conscious not in acute distress Patient is stable Will sign appears to be stable Objective - Vital Signs/Intake and Output Vital Signs (last 24 hours): Temp Pulse Resp BP Pulse Ox 97.7 F 89 20 145/95 H 96 11/21/18 08:08 11/21/18 09:34 11/21/18 08:08 11/21/18 09:34 11/21/18 08:08 - Medications Medications: Current Medications Aspirin (Ecotrin) 81 mg PO DAILY [facility] Last Admin: 11/21/18 09:32 Dose: 81 mg Ferrous Sulfate (Feosol) 325 mg PO DAILY [facility] Last Admin: 11/21/18 09:33 Dose: 325 mg Home Med (Paricalcitol [Zemplar]) 1 mcg PO DAILY [facility] Isosorbide Mononitrate (Imdur) 60 mg PO DAILY [facility] Last Admin: 11/21/18 09:34 Dose: 60 mg Metoprolol Tartrate (Lopressor) 75 mg PO Q12 [facility] Last Admin: 11/21/18 09:34 Dose: 75 mg Pantoprazole Sodium (Protonix Inj) 40 mg IVP Q12 [facility] Last Admin: 11/21/18 10:49 Dose: Not Given Sodium Bicarbonate (Sodium Bicarbonate Tab) 650 mg PO Q6 [facility] Last Admin: 11/21/18 09:36 Dose: 650 mg - Labs Labs: 11/20/18 11:26 11/19/18 14:45 PT 11.9 Seconds (9.8-13.1) 11/19/18 14:10 INR 1.0 11/19/18 14:10 APTT 28.6 Seconds (25.6-37.1) 11/19/18 14:10 - Constitutional Appears: No Acute Distress - Eye Exam Eye Exam: Conjunctival injection - ENT Exam ENT Exam: Mucous Membranes Moist - Neck Exam Neck Exam: absent: Lymphadenopathy - Respiratory Exam Respiratory Exam: NORMAL BREATHING PATTERN. absent: Rhonchi - Cardiovascular Exam Cardiovascular Exam: absent: Gallop, JVD, Rubs - GI/Abdominal Exam GI & Abdominal Exam: Soft, Normal Bowel Sounds - Extremities Exam Extremities Exam: absent: Calf Tenderness - Back Exam Back Exam: absent: CVA tenderness (L), CVA tenderness (R) - Neurological Exam Neurological Exam: Alert - Psychiatric Exam Psychiatric exam: Normal Affect - Skin Skin Exam: absent: Cyanosis Assessment and Plan (1) Acute kidney injury superimposed on CKD Assessment & Plan: Patient admitted with active GI bleeding with severe anemia Patient has a chronic kidney disease stage IV with super imposed acute kidney injury from the hemodynamic changes in the active GI bleeding. Metabolic acidosis Hypertension Severe anemia from the GI bleeding My recommendation Discontinue losartan temporarily Hydration gently Transfusion as needed Evaluation Sodium bicarbonate p.o. Serum phosphorus and PTH Status: Chronic (2) Anemia Status: Acute
[2018-11-21 13:07] LABS: HEMOGLOBIN 8.6 g/dL (12.0-18.0); MEAN CELL VOLUME 93.3 fl (80.0-94.0); MEAN CORPUSCULAR HEMOGLOBIN 30.4 pg (27.0-31.0); MEAN CORPUSCULAR HGB CONC 32.6 g/dL (33.0-37.0); RBC 2.83 Mil/uL (4.40-5.90); RED CELL DISTRIBUTION WIDTH 18.8 % (11.5-14.5); WHITE BLOOD COUNT 5.3 K/uL (4.8-10.8)
[2018-11-21 13:18] LABS: ALB/GLOB RATIO 1.3 (1.0-2.1); ALBUMIN 3.2 g/dL (3.5-5.0); CALCIUM 9.1 mg/dL (8.4-10.2)
[2018-11-21] MEDS ORDERED: Ciprofloxacin 400mg/200ml D5W 400 MG/200 ML BAG IVPB SCH (13:30)
--- NOTE | 2018-11-21 13:40 | US ---
Date of service: 11/20/2018 PROCEDURE: Ultrasound of the Kidneys HISTORY: Renal COMPARISON: Abdomen pelvis CT 6:30 p.m.. TECHNIQUE: Sonogram of the kidneys. FINDINGS: RIGHT KIDNEY: Measures: 9.7 x 4.4 x 4.7 cm. Right kidney is normal in size though somewhat increase in cortical echogenicity which may indicate intrinsic medical renal disease. Mild pelvocaliceal dilatation is appreciated and correlating with CT also performed 11/20/2018, numerous calculi identified within the calices with poor definition of the renal pelvis. Overall blood flows unremarkable throughout the kidney but may be in the pelvis. CT suggest soft tissue or hematoma in the right renal pelvis. MRI may be useful for further characterization. LEFT KIDNEY: Measures: 8.4 x 4.0 x 4.5 cm. Increased cortical echogenicity is appreciated, similar to that the right kidney, potentially compatible with intrinsic medical renal disease. No stone, solid mass lesion or hydronephrosis visualized. OTHER FINDINGS: None. IMPRESSION: Mild right hydronephrosis is question with nonobstructing multifocal intrarenal calculi at the upper middle and lower pole right renal calices concordant with CT 11/20/2018 performed preliminarily. Further characterization of the right renal pelvis is advised using MRI for added characterization of the right renal pelvis in particular which is not well characterized in this exam. Intrinsic medical renal disease question. No left hydronephrosis or urolithiasis appreciable.
--- NOTE | 2018-11-21 14:31 | CP.PCM.PN ---
Subjective - Date & Time of Evaluation Date of Evaluation: 11/21/18 Time of Evaluation: 10:40 - Subjective Subjective: F/U Hematochezia no AD, N/C, no abdominal pain Objective - Vital Signs/Intake and Output Vital Signs (last 24 hours): Temp Pulse Resp BP Pulse Ox 97.6 F 62 20 157/67 H 98 11/21/18 12:32 11/21/18 12:32 11/21/18 12:32 11/21/18 12:32 11/21/18 12:32 - Medications Medications: Current Medications Aspirin (Ecotrin) 81 mg PO DAILY [facility] Last Admin: 11/21/18 09:32 Dose: 81 mg Ferrous Sulfate (Feosol) 325 mg PO DAILY [facility] Last Admin: 11/21/18 09:33 Dose: 325 mg Home Med (Paricalcitol [Zemplar]) 1 mcg PO DAILY [facility] Metronidazole (Flagyl 500mg/100ml Ns) 100 mls @ 100 mls/hr IVPB Q8 [facility]; Protocol Ceftriaxone Sodium 1 gm/ (Sodium Chloride) 100 mls @ 100 mls/hr IVPB DAILY [facility]; Protocol Isosorbide Mononitrate (Imdur) 60 mg PO DAILY [facility] Last Admin: 11/21/18 09:34 Dose: 60 mg Metoprolol Tartrate (Lopressor) 75 mg PO Q12 [facility] Last Admin: 11/21/18 09:34 Dose: 75 mg Pantoprazole Sodium (Protonix Inj) 40 mg IVP Q12 [facility] Last Admin: 11/21/18 10:49 Dose: Not Given Sodium Bicarbonate (Sodium Bicarbonate Tab) 650 mg PO Q6 [facility] Last Admin: 11/21/18 09:36 Dose: 650 mg - Labs Labs: 11/21/18 13:02 11/21/18 13:02 PT 11.9 Seconds (9.8-13.1) 11/19/18 14:10 INR 1.0 11/19/18 14:10 APTT 28.6 Seconds (25.6-37.1) 11/19/18 14:10 - Constitutional Appears: No Acute Distress - Head Exam Head Exam: NORMAL INSPECTION - Eye Exam Eye Exam: PERRL - ENT Exam ENT Exam: Normal Exam - Neck Exam Neck Exam: Normal Inspection - Respiratory Exam Respiratory Exam: Decreased Breath Sounds (a bases) - Cardiovascular Exam Cardiovascular Exam: REGULAR RHYTHM, Murmur - GI/Abdominal Exam GI & Abdominal Exam: Soft - Extremities Exam Extremities Exam: Normal Inspection - Back Exam Back Exam: NORMAL INSPECTION - Neurological Exam Neurological Exam: Alert, Oriented x3 Additional comments: Able to follow commands, no focal motor/sensory deficit. - Psychiatric Exam Psychiatric exam: Normal Affect, Normal Mood - Skin Skin Exam: Normal Color, Warm Assessment and Plan (1) Colitis Assessment & Plan: CT Abdomen Pelvis Colitis Status: Acute (2) Hematochezia Status: Acute (3) Anemia Assessment & Plan: Iron Def, s/p PRBC transfusion Status: Acute (4) Acute kidney injury 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: Chronic (5) Generalized weakness Status: Chronic (6) Congestive heart failure (CHF) Assessment & Plan: diastolic 2nd to Status: Chronic (7) COPD (chronic obstructive pulmonary disease) Status: Chronic (8) DMII (diabetes mellitus, type 2) Status: Chronic (9) Gastritis Status: Chronic (10) HTN (hypertension) Status: Chronic (11) Hx of bladder cancer Assessment & Plan: 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
[2018-11-21] MEDS: metroNIDAZOLE 500mg/100ml NS 100 ML IVPB SCH (17:56)
[2018-11-22] MEDS ORDERED: EnalaprilAT 1.25 mg/ml Inj ONE (00:25)
[2018-11-22] MEDS: Enalaprilat 2.5 MG/2 ML IV SCH ×5 (00:30→21:31)
[2018-11-22] MEDS: metroNIDAZOLE 500mg/100ml NS 100 ML IVPB SCH ×3 (00:34→16:57)
--- NOTE | 2018-11-22 01:15 | CON ---
DATE: 11/21/2018 REFERRING PHYSICIAN: Logan Stockton MD REASON FOR CONSULTATION: Rectal bleeding. HISTORY OF PRESENT ILLNESS: This is an 83-year-old man with a history of CKD, anemia, UTI, hypertension, STEMI, COPD, and pneumonia. The patient had a complicated respiratory event in the last year. Now comes in with rectal bleeding and also some weakness. The patient was found to have colitis for which is being treated from GI standpoint. Currently lying in bed comfortably, in no apparent distress. PAST MEDICAL HISTORY: As above. SURGICAL HISTORY: As above. MEDICATIONS: Reviewed. REVIEW OF SYSTEMS: All other systems have been reviewed and negative apart from the HPI. PHYSICAL EXAMINATION: VITAL SIGNS: Here in the hospital are grossly unremarkable. GENERAL: A pleasant elderly male, lying in bed comfortably, in no apparent distress. HEENT: Head: Normocephalic and atraumatic. Eyes: Pupils are equally reactive to light bilaterally. No conjunctival pallor or icterus. NECK: Supple. Normal range of motion. No lymphadenopathy appreciated. LUNGS: Coarse breath sounds bilaterally. HEART: S1 and S2. Regular rhythm. No S3. ABDOMEN: Soft, nontender. Some discomfort. Bowel sounds present. No rebound. No guarding. RECTAL: Deferred. EXTREMITIES: Pulses felt bilaterally. SKIN: Warm, dry, and intact. NEUROLOGIC: Alert and oriented x3. LABORATORY DATA: Labs and radiology have been reviewed. CAT scan shows colitis on the right side, cholelithiasis, small aortic aneurysm, enlarged prostate, and hematoma or soft tissue lesion in the right ureteropelvic junction. Labs include WBC of 5.3, hemoglobin , platelet count is normal. ASSESSMENT AND PLAN: This is an 83-year-old man with colitis and normal findings on the CT. From gastroenterology standpoint, antibiotics for now. Recommend urology input for the possible mass in the kidney system. Will need a colostomy at some point. Thank you for the consult. Matthew Coker MD/ PhD cc: Logan Stockton MD
--- NOTE | 2018-11-22 03:41 | CON ---
DATE: 11/21/2018 HISTORY OF PRESENT ILLNESS: This is an 83-year-old male patient known to have a history of bladder tumor, is seen today because of presence of a pelvic hematoma which appears to be compressing the right ureter and causing hydronephrosis. The question here becomes whether there is any intraureteral pathology known because of his bladder history or if this is just purely compression from the pelvic hematoma. The patient voids visually clear urine. He does have microscopic hematuria, however, he does note that he has had gross rectal bleeding and at least in this past day or so appears to have been subsiding. The patient has a significant anemia with a hemoglobin of 6.3 on admission with hematocrit of 19.2, white count has always been normal throughout. PHYSICAL EXAMINATION: ABDOMEN: At this point on physical examination, the patient has no abdominal pain at this time, no acute flank pain which leads me to believe that this hydronephrosis might be of some chronic origin. PLAN: I will offer to the patient at this time cystoscopic with diagnostic right ureteroscopy and possible J stent if the hydronephrosis remains significant. At this time, the BUN is 41 and the creatinine is 2.8 which would further increase the reason for decompressing the right kidney. Shaji Lord MD
[2018-11-22 05:24] LABS: HEMOGLOBIN 8.6 g/dL (12.0-18.0); MEAN CELL VOLUME 93.2 fl (80.0-94.0); MEAN CORPUSCULAR HEMOGLOBIN 30.9 pg (27.0-31.0); MEAN CORPUSCULAR HGB CONC 33.1 g/dL (33.0-37.0); RBC 2.77 Mil/uL (4.40-5.90); RED CELL DISTRIBUTION WIDTH 18.1 % (11.5-14.5); WHITE BLOOD COUNT 5.2 K/uL (4.8-10.8)
[2018-11-22 05:33] LABS: CALCIUM 8.9 mg/dL (8.4-10.2)
--- NOTE | 2018-11-22 10:10 | CP.PCM.PN ---
Subjective - Date & Time of Evaluation Date of Evaluation: 11/22/18 Time of Evaluation: 10:12 - Subjective Subjective: Patient awake and conscious feeling much better. No active lower GI bleeding reported Objective - Vital Signs/Intake and Output Vital Signs (last 24 hours): Temp Pulse Resp BP Pulse Ox 97.5 F L 59 L 18 167/71 H 100 11/22/18 08:09 11/22/18 09:24 11/22/18 08:09 11/22/18 09:24 11/22/18 08:09 - Medications Medications: Current Medications Aspirin (Ecotrin) 81 mg PO DAILY [facility] Last Admin: 11/21/18 09:32 Dose: 81 mg Clonidine HCl (Catapres) 0.1 mg PO BID [facility] Last Admin: 11/22/18 09:22 Dose: 0.1 mg Enalaprilat (Vasotec) 2.5 mg IV Q6 [facility] Last Admin: 11/22/18 09:29 Dose: 2.5 mg Ferrous Sulfate (Feosol) 325 mg PO DAILY [facility] Last Admin: 11/22/18 09:23 Dose: 325 mg Home Med (Paricalcitol [Zemplar]) 1 mcg PO DAILY [facility] Metronidazole (Flagyl 500mg/100ml Ns) 100 mls @ 100 mls/hr IVPB Q8 [facility]; [facility] Last Admin: 11/22/18 09:23 Dose: 100 mls/hr Ceftriaxone Sodium 1 gm/ (Sodium Chloride) 100 mls @ 100 mls/hr IVPB DAILY [facility]; Protocol Last Admin: 11/22/18 09:26 Dose: 100 mls/hr Isosorbide Mononitrate (Imdur) 60 mg PO DAILY [facility] Last Admin: 11/22/18 09:24 Dose: 60 mg Metoprolol Tartrate (Lopressor) 75 mg PO Q12 [facility] Last Admin: 11/22/18 09:24 Dose: 75 mg Pantoprazole Sodium (Protonix Inj) 40 mg IVP Q12 [facility] Last Admin: 11/22/18 09:25 Dose: 40 mg Sodium Bicarbonate (Sodium Bicarbonate Tab) 650 mg PO Q6 [facility] Last Admin: 11/22/18 09:28 Dose: 650 mg - Labs Labs: 11/22/18 04:55 11/22/18 04:55 PT 11.9 Seconds (9.8-13.1) 11/19/18 14:10 INR 1.0 11/19/18 14:10 APTT 28.6 Seconds (25.6-37.1) 11/19/18 14:10 - Constitutional Appears: No Acute Distress - Eye Exam Eye Exam: Conjunctival injection - ENT Exam ENT Exam: Mucous Membranes Moist - Respiratory Exam Respiratory Exam: absent: Chest Wall Tenderness - Cardiovascular Exam Cardiovascular Exam: absent: Gallop, JVD, Rubs - GI/Abdominal Exam GI & Abdominal Exam: Soft, Normal Bowel Sounds - Extremities Exam Extremities Exam: absent: Calf Tenderness - Back Exam Back Exam: absent: CVA tenderness (L) - Neurological Exam Neurological Exam: Alert - Psychiatric Exam Psychiatric exam: Normal Affect - Skin Skin Exam: absent: Cyanosis Assessment and Plan (1) Acute kidney injury superimposed on CKD Assessment & Plan: Patient admitted with active GI bleeding with severe anemia Patient has a chronic kidney disease stage IV with super imposed acute kidney injury from the hemodynamic changes in the active GI bleeding. Metabolic acidosis Hypertension Severe anemia from the GI bleeding My recommendation Discontinue losartan temporarily Hydration gently Transfusion as needed consultation Sodium bicarbonate p.o. Serum phosphorus and PTH CT scan report as follow IMPRESSION: 1. Hematoma or soft tissue lesion obstructing the right ureteropelvic junction/right renal pelvis with mild right hydronephrosis identified. Intrarenal calculi are suspected with multiple calices of the right kidney. No left-sided obstructive uropathy. Urological consultation is advised as neoplasm is not excluded here. 2. Segmental colitis right hemicolon through transverse large-bowel segment. No abscess or free air. Local pericolic reaction as discussed above. 3. Cholelithiasis within a contracted gallbladder. Stable hepatic cyst near the dome. 4. Sigmoid diverticulosis appears mild, without diverticulitis. 5. 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 6. Enlarged prostate gland. Preliminary report provided by YoucruitMichael, 11/20/2018, 8:10 p.m.. Status: Chronic (2) Anemia Status: Acute
--- NOTE | 2018-11-22 12:31 | CP.PCM.CON ---
History of Present Illness - History of Present Illness History of Present Illness: 83 year old male with a history of HTN, HL, CKD, aortic stenosis, anemia, bladder cancer (unclear if muscle invasive) admitted with hematochezia and symptomatic anemia s/p PRBC transfusion. The patient is known to me from prior evaluation for anemia. His anemia w/u was consistent with iron deficiency anemia and anemia of CKD. He notes he has been having intermittent bleeding per rectum but notes it has currently resolved. Past medical history: HTN, HL, CKD, aortic stenosis, anemia Past surgical history: Denies Family history: Denies hematologic and oncologic problems Social history: Denies tobacco, alcohol, and illicit drug use. Allergies: NKA Review of systems: All remaining review of systems including HEENT, cardiovascular, respiratory, gastrointestinal, genitourinary, musculoskeletal, dermatologic, neurologic, and psychiatric are negative unless mentioned in the HPI. Past Patient History - Past Medical History & Family History Past Medical History?: Yes - Past Social History Smoking Status: Former Smoker (for 40 years) Alcohol: None Drugs: Denies Home Situation {Lives}: With Family - CARDIAC Hx Cardiac Disorders: Yes Hx Congestive Heart Failure: Yes (acute on chronic) Hx Hypertension: Yes - PULMONARY Hx Respiratory Disorders: Yes Hx Chronic Obstructive Pulmonary Disease (COPD): Yes Hx Pneumonia: Yes - NEUROLOGICAL Hx Neurological Disorder: Yes (Radiculopathy) Hx Dizziness: Yes - HEENT Hx HEENT Problems: Yes Hx Cataracts: Yes - RENAL Hx Chronic Kidney Disease: Yes Hx Kidney Stones: Yes Hx Renal Failure: Yes Other/Comment: US 10-27-18 R Renal calculi multple, R hydronephrosis - ENDOCRINE/METABOLIC Hx Endocrine Disorders: Yes Hx Diabetes Mellitus Type 2: Yes - HEMATOLOGICAL/ONCOLOGICAL Hx Blood Disorders: Yes Hx Anemia: Yes Hx Blood Transfusions: Yes Hx Cancer: Yes ( 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) - INTEGUMENTARY Hx Dermatological Problems: No - MUSCULOSKELETAL/RHEUMATOLOGICAL Hx Musculoskeletal Disorders: Yes Hx Back Pain: Yes Hx Falls: No - GASTROINTESTINAL Hx Gastrointestinal Disorders: Yes Hx Constipation: Yes Hx Gastritis: Yes Hx Pancreatitis: Yes - GENITOURINARY/GYNECOLOGICAL 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) - PSYCHIATRIC Hx Psychophysiologic Disorder: No Hx Substance Use: No - SURGICAL HISTORY Hx Surgeries: Yes Hx Carotid Endarterectomy: Yes Hx Eye Surgery: Yes (Cataract b/l) Other/Comment: 08-01-17 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 - ANESTHESIA Hx Anesthesia: Yes (anton ding) Hx Anesthesia Reactions: No Hx Malignant Hyperthermia: No Meds Allergies/Adverse Reactions: Allergies Allergy/AdvReac Type Severity Reaction Status Date / Time No Known Allergies Allergy Verified 11/19/18 13:47 - Medications Medications: Current Medications Aspirin (Ecotrin) 81 mg PO DAILY [facility] Last Admin: 11/21/18 09:32 Dose: 81 mg Clonidine HCl (Catapres) 0.1 mg PO BID [facility] Last Admin: 11/22/18 09:22 Dose: 0.1 mg Enalaprilat (Vasotec) 2.5 mg IV Q6 [facility] Last Admin: 11/22/18 09:29 Dose: 2.5 mg Ferrous Sulfate (Feosol) 325 mg PO DAILY [facility] Last Admin: 11/22/18 09:23 Dose: 325 mg Home Med (Paricalcitol [Zemplar]) 1 mcg PO DAILY [facility] Metronidazole (Flagyl 500mg/100ml Ns) 100 mls @ 100 mls/hr IVPB Q8 [facility]; Protocol Last Admin: 11/22/18 09:23 Dose: 100 mls/hr Ceftriaxone Sodium 1 gm/ (Sodium Chloride) 100 mls @ 100 mls/hr IVPB DAILY [facility]; Protocol Last Admin: 11/22/18 09:26 Dose: 100 mls/hr Isosorbide Mononitrate (Imdur) 60 mg PO DAILY [facility] Last Admin: 11/22/18 09:24 Dose: 60 mg Metoprolol Tartrate (Lopressor) 75 mg PO Q12 [facility] Last Admin: 11/22/18 09:24 Dose: 75 mg Pantoprazole Sodium (Protonix Inj) 40 mg IVP Q12 [facility] Last Admin: 11/22/18 09:25 Dose: 40 mg Sodium Bicarbonate (Sodium Bicarbonate Tab) 650 mg PO Q6 [facility] Last Admin: 11/22/18 09:28 Dose: 650 mg Physical Exam - Head Exam Head Exam: ATRAUMATIC - Eye Exam Eye Exam: Normal appearance - ENT Exam ENT Exam: Mucous Membranes Dry - Respiratory Exam Respiratory Exam: NORMAL BREATHING PATTERN - Cardiovascular Exam Cardiovascular Exam: +S1, +S2 - GI/Abdominal Exam GI & Abdominal Exam: Normal Bowel Sounds - Extremities Exam Extremities exam: Positive for: normal inspection - Neurological Exam Neurological exam: Oriented x3 - Psychiatric Exam Psychiatric exam: Normal Affect, Normal Mood - Skin Skin Exam: Warm Results - Vital Signs Recent Vital Signs: Last Vital Signs Temp 97.6 F 11/22/18 12:13 Pulse 66 11/22/18 12:13 Resp 18 11/22/18 12:13 BP 142/67 11/22/18 12:13 Pulse Ox 97 11/22/18 12:13 - Labs Result Diagrams: 11/22/18 04:55 11/22/18 04:55 Labs: Laboratory Results - last 24 hr 11/20/18 11/20/18 11/21/18 11:26 11:26 13:02 WBC 5.3 RBC 2.83 L Hgb 8.6 L Hct 26.4 L MCV 93.3 MCH 30.4 MCHC 32.6 L RDW 18.8 H Plt Count 156 Sodium Potassium Chloride Carbon Dioxide Anion Gap BUN Creatinine Est GFR ( Amer) Est GFR (Non-Af Amer) Random Glucose Calcium Phosphorus Magnesium Total Bilirubin AST ALT Alkaline Phosphatase Total Protein Albumin Globulin Albumin/Globulin Ratio RBC Folate 1090 PTH Intact Whole Molec 61 11/21/18 11/21/18 11/22/18 13:02 13:06 04:55 WBC 5.2 RBC 2.77 L Hgb 8.6 L Hct 25.8 L MCV 93.2 MCH 30.9 MCHC 33.1 RDW 18.1 H Plt Count 148 Sodium 137 Potassium 4.8 Chloride 106 Carbon Dioxide 18 L Anion Gap 18 BUN 41 H Creatinine 2.8 H Est GFR ( Amer) 26 Est GFR (Non-Af Amer) 22 Random Glucose 116 H Calcium 9.1 Phosphorus 3.2 Magnesium 1.9 Total Bilirubin 0.2 AST 20 ALT 27 Alkaline Phosphatase 84 Total Protein 5.7 L Albumin 3.2 L Globulin 2.5 Albumin/Globulin Ratio 1.3 RBC Folate PTH Intact Whole Molec 11/22/18 04:55 WBC RBC Hgb Hct MCV MCH MCHC RDW Plt Count Sodium 137 Potassium 4.7 Chloride 107 Carbon Dioxide 18 L Anion Gap 17 BUN 40 H Creatinine 2.8 H Est GFR ( Amer) 26 Est GFR (Non-Af Amer) 22 Random Glucose 132 H Calcium 8.9 Phosphorus Magnesium Total Bilirubin AST ALT Alkaline Phosphatase Total Protein Albumin Globulin Albumin/Globulin Ratio RBC Folate PTH Intact Whole Molec Assessment & Plan (1) Anemia Assessment and Plan: iron deficiency anemia from likely chronic GI blood loss, ? hematuria from bladder tumor GI w/u when more stable will start IV iron anemia of CKD - will give a dose of Procrit Status: Acute Priority: High (2) Bladder cancer Assessment and Plan: unclear if superficial f/u with urology Thank you for this interesting consult. Status: Acute
--- NOTE | 2018-11-22 13:04 | CP.PCM.PN ---
Subjective - Date & Time of Evaluation Date of Evaluation: 11/22/18 Time of Evaluation: 11:40 - Subjective Subjective: F/U Hematochezia no AD, no Abdominal pain, had BM, "normal" regular stool, no bright red blood, no melena Objective - Vital Signs/Intake and Output Vital Signs (last 24 hours): Temp Pulse Resp BP Pulse Ox 97.6 F 66 18 142/67 97 11/22/18 12:13 11/22/18 12:13 11/22/18 12:13 11/22/18 12:13 11/22/18 12:13 - Medications Medications: Current Medications Aspirin (Ecotrin) 81 mg PO DAILY [facility] Last Admin: 11/21/18 09:32 Dose: 81 mg Clonidine HCl (Catapres) 0.1 mg PO BID [facility] Last Admin: 11/22/18 09:22 Dose: 0.1 mg Enalaprilat (Vasotec) 2.5 mg IV Q6 [facility] Last Admin: 11/22/18 09:29 Dose: 2.5 mg Ferrous Sulfate (Feosol) 325 mg PO DAILY [facility] Last Admin: 11/22/18 09:23 Dose: 325 mg Home Med (Paricalcitol [Zemplar]) 1 mcg PO DAILY [facility] Metronidazole (Flagyl 500mg/100ml Ns) 100 mls @ 100 mls/hr IVPB Q8 [facility]; Protocol Last Admin: 11/22/18 09:23 Dose: 100 mls/hr Ceftriaxone Sodium 1 gm/ (Sodium Chloride) 100 mls @ 100 mls/hr IVPB DAILY [facility]; Protocol Last Admin: 11/22/18 09:26 Dose: 100 mls/hr Isosorbide Mononitrate (Imdur) 60 mg PO DAILY [facility] Last Admin: 11/22/18 09:24 Dose: 60 mg Metoprolol Tartrate (Lopressor) 75 mg PO Q12 [facility] Last Admin: 11/22/18 09:24 Dose: 75 mg Pantoprazole Sodium (Protonix Inj) 40 mg IVP Q12 [facility] Last Admin: 11/22/18 09:25 Dose: 40 mg Sodium Bicarbonate (Sodium Bicarbonate Tab) 650 mg PO Q6 [facility] Last Admin: 11/22/18 09:28 Dose: 650 mg - Labs Labs: 11/22/18 04:55 11/22/18 04:55 PT 11.9 Seconds (9.8-13.1) 11/19/18 14:10 INR 1.0 11/19/18 14:10 APTT 28.6 Seconds (25.6-37.1) 11/19/18 14:10 - Constitutional Appears: No Acute Distress - Head Exam Head Exam: NORMAL INSPECTION - Eye Exam Eye Exam: PERRL - ENT Exam ENT Exam: Normal Exam - Neck Exam Neck Exam: Normal Inspection - Respiratory Exam Respiratory Exam: Decreased Breath Sounds (at bases) - Cardiovascular Exam Cardiovascular Exam: REGULAR RHYTHM, Murmur - GI/Abdominal Exam GI & Abdominal Exam: Soft - Extremities Exam Extremities Exam: Normal Inspection - Back Exam Back Exam: NORMAL INSPECTION - Neurological Exam Neurological Exam: Alert, Oriented x3 Additional comments: Follows commands, no focal motor/sensory deficit - Psychiatric Exam Psychiatric exam: Normal Affect, Normal Mood - Skin Skin Exam: Normal Color, Warm Assessment and Plan (1) Colitis Status: Acute (2) Hematochezia Status: Acute (3) Anemia Status: Acute (4) Acute kidney injury 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: Chronic (5) Generalized weakness Status: Chronic (6) Congestive heart failure (CHF) Status: Chronic (7) Aortic stenosis Status: Chronic (8) COPD (chronic obstructive pulmonary disease) Status: Chronic (9) DMII (diabetes mellitus, type 2) Status: Chronic (10) Gastritis Status: Chronic (11) HTN (hypertension) Status: Chronic (12) Hx of bladder cancer Status: Acute - Assessment and Plan (Free Text) Plan: Colitis improved, continue Cipro, Flagyl, Na Bicarb , Iron IV, Renal function improved, anemia stable, continue Lopressor, Vasotec, BP better controlled, discussed with It Operations Analyst senior billing consultant Hx of Bladder Ca, Urologist senior billing consultant Cysto in am Hx Bladder CA and Renal US Right hydronephrosis. 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
[2018-11-23] MEDS: metroNIDAZOLE 500mg/100ml NS 100 ML IVPB SCH ×3 (00:26→16:23)
[2018-11-23] MEDS: Enalaprilat 2.5 MG/2 ML IV SCH ×4 (04:20→22:04)
--- NOTE | 2018-11-23 08:54 | CP.PCM.PN ---
Subjective - Date & Time of Evaluation Date of Evaluation: 11/23/18 Time of Evaluation: 08:50 - Subjective Subjective: urology. mr oneil is scheduled for tomorrow in the operating room for cystoscopy and jj stent placement for CT findings of hydronephrosis onthe right side. will keep NPO past midnight tonight. Objective - Vital Signs/Intake and Output Vital Signs (last 24 hours): Temp Pulse Resp BP Pulse Ox 98.0 F 60 20 155/80 H 99 11/23/18 08:09 11/23/18 08:09 11/23/18 08:09 11/23/18 08:09 11/23/18 08:09 - Medications Medications: Current Medications Aspirin (Ecotrin) 81 mg PO DAILY [facility] Last Admin: 11/21/18 09:32 Dose: 81 mg Clonidine HCl (Catapres) 0.1 mg PO BID [facility] Last Admin: 11/22/18 16:56 Dose: 0.1 mg Enalaprilat (Vasotec) 2.5 mg IV Q6 [facility] Last Admin: 11/23/18 04:20 Dose: 2.5 mg Epoetin Neo (Procrit) 20,000 unit SC ONCE ONE Stop: 11/23/18 10:01 Ferrous Sulfate (Feosol) 325 mg PO DAILY [facility] Last Admin: 11/22/18 09:23 Dose: 325 mg Home Med (Paricalcitol [Zemplar]) 1 mcg PO DAILY [facility] Metronidazole (Flagyl 500mg/100ml Ns) 100 mls @ 100 mls/hr IVPB Q8 [facility]; Protocol Last Admin: 11/23/18 00:26 Dose: 100 mls/hr Ceftriaxone Sodium 1 gm/ (Sodium Chloride) 100 mls @ 100 mls/hr IVPB DAILY [facility]; Protocol Last Admin: 11/22/18 09:26 Dose: 100 mls/hr Iron Sucrose 200 mg/ Sodium (Chloride) 110 mls @ 110 mls/hr IVPB DAILY [facility] Stop: 11/28/18 09:01 Isosorbide Mononitrate (Imdur) 60 mg PO DAILY [facility] Last Admin: 11/22/18 09:24 Dose: 60 mg Metoprolol Tartrate (Lopressor) 75 mg PO Q12 [facility] Last Admin: 11/22/18 21:30 Dose: 75 mg Pantoprazole Sodium (Protonix Inj) 40 mg IVP Q12 [facility] Last Admin: 11/22/18 21:30 Dose: 40 mg Sodium Bicarbonate (Sodium Bicarbonate Tab) 650 mg PO Q6 [facility] Last Admin: 11/23/18 04:20 Dose: 650 mg - Labs Labs: 11/22/18 04:55 11/22/18 04:55 PT 11.9 Seconds (9.8-13.1) 11/19/18 14:10 INR 1.0 11/19/18 14:10 APTT 28.6 Seconds (25.6-37.1) 11/19/18 14:10
--- NOTE | 2018-11-23 08:57 | CP.PCM.PN ---
Subjective - Date & Time of Evaluation Date of Evaluation: 11/22/18 Time of Evaluation: 14:00 - Subjective Subjective: no overnight events Objective - Vital Signs/Intake and Output Vital Signs (last 24 hours): Temp Pulse Resp BP Pulse Ox 98.0 F 60 20 155/80 H 99 11/23/18 08:09 11/23/18 08:09 11/23/18 08:09 11/23/18 08:09 11/23/18 08:09 - Medications Medications: Current Medications Aspirin (Ecotrin) 81 mg PO DAILY [facility] Last Admin: 11/21/18 09:32 Dose: 81 mg Clonidine HCl (Catapres) 0.1 mg PO BID [facility] Last Admin: 11/22/18 16:56 Dose: 0.1 mg Enalaprilat (Vasotec) 2.5 mg IV Q6 [facility] Last Admin: 11/23/18 04:20 Dose: 2.5 mg Epoetin Neo (Procrit) 20,000 unit SC ONCE ONE Stop: 11/23/18 10:01 Ferrous Sulfate (Feosol) 325 mg PO DAILY [facility] Last Admin: 11/22/18 09:23 Dose: 325 mg Home Med (Paricalcitol [Zemplar]) 1 mcg PO DAILY [facility] Metronidazole (Flagyl 500mg/100ml Ns) 100 mls @ 100 mls/hr IVPB Q8 [facility]; Prot ocol Last Admin: 11/23/18 00:26 Dose: 100 mls/hr Ceftriaxone Sodium 1 gm/ (Sodium Chloride) 100 mls @ 100 mls/hr IVPB DAILY [facility]; Protocol Last Admin: 11/22/18 09:26 Dose: 100 mls/hr Iron Sucrose 200 mg/ Sodium (Chloride) 110 mls @ 110 mls/hr IVPB DAILY [facility] Stop: 11/28/18 09:01 Isosorbide Mononitrate (Imdur) 60 mg PO DAILY [facility] Last Admin: 11/22/18 09:24 Dose: 60 mg Metoprolol Tartrate (Lopressor) 75 mg PO Q12 [facility] Last Admin: 11/22/18 21:30 Dose: 75 mg Pantoprazole Sodium (Protonix Inj) 40 mg IVP Q12 [facility] Last Admin: 11/22/18 21:30 Dose: 40 mg Sodium Bicarbonate (Sodium Bicarbonate Tab) 650 mg PO Q6 [facility] Last Admin: 11/23/18 04:20 Dose: 650 mg - Labs Labs: 11/22/18 04:55 11/22/18 04:55 PT 11.9 Seconds (9.8-13.1) 11/19/18 14:10 INR 1.0 11/19/18 14:10 APTT 28.6 Seconds (25.6-37.1) 11/19/18 14:10 - Head Exam Head Exam: NORMOCEPHALIC - Eye Exam Pupil Exam: NORMAL ACCOMODATION - Neck Exam Neck Exam: Normal Inspection - Respiratory Exam Respiratory Exam: Clear to Ausculation Bilateral, NORMAL BREATHING PATTERN - Cardiovascular Exam Cardiovascular Exam: REGULAR RHYTHM - GI/Abdominal Exam GI & Abdominal Exam: Soft, Normal Bowel Sounds Assessment and Plan - Assessment and Plan (Free Text) Assessment: 83 yo male with colitis abx urology input
--- NOTE | 2018-11-23 09:28 | CP.PCM.PN ---
Subjective - Date & Time of Evaluation Date of Evaluation: 11/23/18 Time of Evaluation: 09:27 - Subjective Subjective: no overnight events Objective - Vital Signs/Intake and Output Vital Signs (last 24 hours): Temp Pulse Resp BP Pulse Ox 98.0 F 60 20 155/80 H 99 11/23/18 08:09 11/23/18 08:09 11/23/18 08:09 11/23/18 08:09 11/23/18 08:09 - Medications Medications: Current Medications Aspirin (Ecotrin) 81 mg PO DAILY [facility] Last Admin: 11/21/18 09:32 Dose: 81 mg Clonidine HCl (Catapres) 0.1 mg PO BID [facility] Last Admin: 11/23/18 09:04 Dose: 0.1 mg Enalaprilat (Vasotec) 2.5 mg IV Q6 [facility] Last Admin: 11/23/18 09:09 Dose: 2.5 mg Epoetin Neo (Procrit) 20,000 unit SC ONCE ONE Stop: 11/23/18 10:01 Last Admin: 11/23/18 09:07 Dose: 20,000 unit Ferrous Sulfate (Feosol) 325 mg PO DAILY [facility] Last Admin: 11/23/18 09:04 Dose: 325 mg Home Med (Paricalcitol [Zemplar]) 1 mcg PO DAILY [facility] Metronidazole (Flagyl 500mg/100ml Ns) 100 mls @ 100 mls/hr IVPB Q8 [facility]; Protocol Last Admin: 11/23/18 09:06 Dose: 100 mls/hr Ceftriaxone Sodium 1 gm/ (Sodium Chloride) 100 mls @ 100 mls/hr IVPB DAILY [facility]; Protocol Last Admin: 11/23/18 09:07 Dose: 100 mls/hr Iron Sucrose 200 mg/ Sodium (Chloride) 110 mls @ 110 mls/hr IVPB DAILY [facility] Stop: 11/28/18 09:01 Last Admin: 11/23/18 08:30 Dose: 110 mls/hr Isosorbide Mononitrate (Imdur) 60 mg PO DAILY [facility] Last Admin: 11/23/18 09:09 Dose: 60 mg Metoprolol Tartrate (Lopressor) 75 mg PO Q12 [facility] Last Admin: 11/23/18 09:11 Dose: 75 mg Pantoprazole Sodium (Protonix Inj) 40 mg IVP Q12 [facility] Last Admin: 11/23/18 09:10 Dose: 40 mg Sodium Bicarbonate (Sodium Bicarbonate Tab) 650 mg PO Q6 [facility] Last Admin: 11/23/18 09:09 Dose: 650 mg - Labs Labs: 11/22/18 04:55 11/22/18 04:55 PT 11.9 Seconds (9.8-13.1) 11/19/18 14:10 INR 1.0 11/19/18 14:10 APTT 28.6 Seconds (25.6-37.1) 11/19/18 14:10 - Neck Exam Neck Exam: Normal Inspection - Respiratory Exam Respiratory Exam: Clear to Ausculation Bilateral, NORMAL BREATHING PATTERN - Cardiovascular Exam Cardiovascular Exam: REGULAR RHYTHM - GI/Abdominal Exam GI & Abdominal Exam: Soft, Normal Bowel Sounds Assessment and Plan - Assessment and Plan (Free Text) Assessment: 83 yo male with colitis doing well uro input appeciated
[2018-11-23] MEDS ORDERED: Epoetin Alfa 20000 UNIT/ML (RENAL DOSE) SC ONE (10:00)
--- NOTE | 2018-11-23 17:58 | CP.PCM.PN ---
Subjective - Date & Time of Evaluation Date of Evaluation: 11/23/18 Time of Evaluation: 11:00 - Subjective Subjective: F/U Hematochezia. no AD, N/C , no Abdominal pain, BM no rectal bleeding Objective - Vital Signs/Intake and Output Vital Signs (last 24 hours): Temp Pulse Resp BP Pulse Ox 97.7 F 68 16 174/68 H 97 11/23/18 16:05 11/23/18 16:05 11/23/18 16:05 11/23/18 16:05 11/23/18 16:05 - Medications Medications: Current Medications Aspirin (Ecotrin) 81 mg PO DAILY [facility] Last Admin: 11/21/18 09:32 Dose: 81 mg Clonidine HCl (Catapres) 0.1 mg PO BID [facility] Last Admin: 11/23/18 16:21 Dose: 0.1 mg Enalaprilat (Vasotec) 2.5 mg IV Q6 [facility] Last Admin: 11/23/18 16:21 Dose: 2.5 mg Ferrous Sulfate (Feosol) 325 mg PO DAILY [facility] Last Admin: 11/23/18 09:04 Dose: 325 mg Home Med (Paricalcitol [Zemplar]) 1 mcg PO DAILY [facility] Metronidazole (Flagyl 500mg/100ml Ns) 100 mls @ 100 mls/hr IVPB Q8 [facility]; Protocol Last Admin: 11/23/18 16:23 Dose: 100 mls/hr Ceftriaxone Sodium 1 gm/ (Sodium Chloride) 100 mls @ 100 mls/hr IVPB DAILY [facility]; Protocol Last Admin: 11/23/18 09:07 Dose: 100 mls/hr Iron Sucrose 200 mg/ Sodium (Chloride) 110 mls @ 110 mls/hr IVPB DAILY [facility] Stop: 11/28/18 09:01 Last Admin: 11/23/18 08:30 Dose: 110 mls/hr Isosorbide Mononitrate (Imdur) 60 mg PO DAILY [facility] Last Admin: 11/23/18 09:09 Dose: 60 mg Metoprolol Tartrate (Lopressor) 75 mg PO Q12 [facility] Last Admin: 11/23/18 09:11 Dose: 75 mg Pantoprazole Sodium (Protonix Inj) 40 mg IVP Q12 [facility] Last Admin: 11/23/18 09:10 Dose: 40 mg Sodium Bicarbonate (Sodium Bicarbonate Tab) 650 mg PO Q6 [facility] Last Admin: 11/23/18 16:21 Dose: 650 mg - Labs Labs: 11/22/18 04:55 11/22/18 04:55 PT 11.9 Seconds (9.8-13.1) 11/19/18 14:10 INR 1.0 11/19/18 14:10 APTT 28.6 Seconds (25.6-37.1) 11/19/18 14:10 - Constitutional Appears: No Acute Distress - Head Exam Head Exam: NORMAL INSPECTION - Eye Exam Eye Exam: PERRL - ENT Exam ENT Exam: Normal Exam - Neck Exam Neck Exam: Normal Inspection - Respiratory Exam Respiratory Exam: Decreased Breath Sounds (at bases) - Cardiovascular Exam Cardiovascular Exam: REGULAR RHYTHM, Murmur - GI/Abdominal Exam GI & Abdominal Exam: Soft, Normal Bowel Sounds - Extremities Exam Extremities Exam: Normal Inspection - Back Exam Back Exam: NORMAL INSPECTION - Neurological Exam Neurological Exam: Alert, Oriented x3 Additional comments: Able to follow commands, no focal motor/sensory deficit. 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
[2018-11-24] MEDS: metroNIDAZOLE 500mg/100ml NS 100 ML IVPB SCH ×3 (00:49→17:06)
[2018-11-24] MEDS: Enalaprilat 2.5 MG/2 ML IV SCH ×3 (04:54→16:41)
[2018-11-24 06:44] LABS: CREATININE, 24 HOUR URINE 0.39 g/24 h (0.50-2.15)
[2018-11-24 09:33] LABS: HEMOGLOBIN 8.8 g/dL (12.0-18.0); MEAN CELL VOLUME 92.6 fl (80.0-94.0); MEAN CORPUSCULAR HEMOGLOBIN 30.9 pg (27.0-31.0); MEAN CORPUSCULAR HGB CONC 33.3 g/dL (33.0-37.0); RBC 2.83 Mil/uL (4.40-5.90); RED CELL DISTRIBUTION WIDTH 17.7 % (11.5-14.5); WHITE BLOOD COUNT 6.4 K/uL (4.8-10.8)
[2018-11-24 09:39] LABS: CALCIUM 8.9 mg/dL (8.4-10.2)
[2018-11-24] MEDS ORDERED: Petrolatum UD PAK TOP PRN (11:04)
--- NOTE | 2018-11-24 11:32 | CP.PCM.PN ---
Subjective - Date & Time of Evaluation Date of Evaluation: 11/24/18 Time of Evaluation: 10:00 - Subjective Subjective: F/U Colitis, Hematochezia no AD, N/C, no abdominal pain, no rectal bleeding Objective - Vital Signs/Intake and Output Vital Signs (last 24 hours): Temp Pulse Resp BP Pulse Ox 98.1 F 66 18 187/71 H 95 11/24/18 08:24 11/24/18 08:24 11/24/18 08:24 11/24/18 08:24 11/24/18 08:24 - Medications Medications: Current Medications Aspirin (Ecotrin) 81 mg PO DAILY [facility] Last Admin: 11/21/18 09:32 Dose: 81 mg Clonidine HCl (Catapres) 0.1 mg PO BID [facility] Last Admin: 11/24/18 08:45 Dose: 0.1 mg Emollient Ointment (Vaseline Oint) 1 pkt TOP BID PRN PRN Reason: Dry skin Enalaprilat (Vasotec) 2.5 mg IV Q6 [facility] Last Admin: 11/24/18 09:41 Dose: Not Given Ferrous Sulfate (Feosol) 325 mg PO DAILY [facility] Last Admin: 11/24/18 08:41 Dose: 325 mg Home Med (Paricalcitol [Zemplar]) 1 mcg PO DAILY [facility] Metronidazole (Flagyl 500mg/100ml Ns) 100 mls @ 100 mls/hr IVPB Q8 [facility]; Protocol Last Admin: 11/24/18 08:46 Dose: 100 mls/hr Ceftriaxone Sodium 1 gm/ (Sodium Chloride) 100 mls @ 100 mls/hr IVPB DAILY [facility]; Protocol Last Admin: 11/24/18 08:15 Dose: 100 mls/hr Iron Sucrose 200 mg/ Sodium (Chloride) 110 mls @ 110 mls/hr IVPB DAILY [facility] Stop: 11/28/18 09:01 Last Admin: 11/24/18 08:00 Dose: 110 mls/hr Isosorbide Mononitrate (Imdur) 60 mg PO DAILY [facility] Last Admin: 11/24/18 08:41 Dose: 60 mg Metoprolol Tartrate (Lopressor) 75 mg PO Q12 [facility] Last Admin: 11/24/18 08:41 Dose: 75 mg Pantoprazole Sodium (Protonix Inj) 40 mg IVP Q12 [facility] Last Admin: 11/24/18 08:42 Dose: 40 mg Sodium Bicarbonate (Sodium Bicarbonate Tab) 650 mg PO Q6 [facility] Last Admin: 11/24/18 09:43 Dose: 650 mg - Labs Labs: 11/24/18 09:10 11/24/18 09:10 PT 11.9 Seconds (9.8-13.1) 11/19/18 14:10 INR 1.0 11/19/18 14:10 APTT 28.6 Seconds (25.6-37.1) 11/19/18 14:10 - Constitutional Appears: No Acute Distress - Head Exam Head Exam: NORMAL INSPECTION - Eye Exam Eye Exam: PERRL - ENT Exam ENT Exam: Normal Exam - Neck Exam Neck Exam: Normal Inspection - Respiratory Exam Respiratory Exam: Decreased Breath Sounds (at bases) - Cardiovascular Exam Cardiovascular Exam: REGULAR RHYTHM, Murmur - GI/Abdominal Exam GI & Abdominal Exam: Soft, Normal Bowel Sounds - Extremities Exam Extremities Exam: Normal Inspection - Back Exam Back Exam: NORMAL INSPECTION - Neurological Exam Neurological Exam: Alert, Oriented x3 Additional comments: Follow commands, no focal motor/sensory deficit, [id number]. 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
--- NOTE | 2018-11-24 12:33 | CP.PCM.CON ---
History of Present Illness - History of Present Illness History of Present Illness: Consultation for preoperative cardiac evaluation HPI: 83-year-old male with past medical history significant for moderate aortic hui nosis who was admitted back in August for symptomatic anemia developed flash pulmonary edema and was intubated patient has been followed by Dr. Chio Bhardwaj in the past cardiac catheterization was deferred secondary to renal insufficiency and chronic kidney disease. Patient now presenting with symptomatic anemia secondary to possible bladder tumor and hematuria. He is being planned for cystoscopy currently denies having any ischemic symptoms. Patient did have mild epigastric chest discomfort after developing severe anemia with drop in hemoglobin he was transfused and is being planned for possible cystoscopy today. Review of Systems - Review of Systems Systems not reviewed;Unavailable: Acuity of Condition - Constitutional Constitutional: As Per HPI - EENT Eyes: As Per HPI Ears: As Per HPI Nose/Mouth/Throat: As Per HPI - Cardiovascular Cardiovascular: As Per HPI - Respiratory Respiratory: As Per HPI - Gastrointestinal Gastrointestinal: As Per HPI - Genitourinary Genitourinary: As Per HPI - Reproductive: Male Reproductive:Male: As Per HPI - Musculoskeletal Musculoskeletal: As Per HPI - Integumentary Integumentary: As Per HPI - Neurological Neurological: As Per HPI - Psychiatric Psychiatric: As Per HPI - Endocrine Endocrine: As Per HPI - Hematologic/Lymphatic Hematologic: As Per HPI Past Patient History - Past Medical History & Family History Past Medical History?: Yes - Past Social History Smoking Status: Former Smoker (for 40 years) Alcohol: None Drugs: Denies Home Situation {Lives}: With Family - CARDIAC Hx Cardiac Disorders: Yes Hx Congestive Heart Failure: Yes (acute on chronic) Hx Hypertension: Yes - PULMONARY Hx Respiratory Disorders: Yes Hx Chronic Obstructive Pulmonary Disease (COPD): Yes Hx Pneumonia: Yes - NEUROLOGICAL Hx Neurological Disorder: Yes (Radiculopathy) Hx Dizziness: Yes - HEENT Hx HEENT Problems: Yes Hx Cataracts: Yes - RENAL Hx Chronic Kidney Disease: Yes Hx Kidney Stones: Yes Hx Renal Failure: Yes Other/Comment: US 10-27-18 R Renal calculi multple, R hydronephrosis - ENDOCRINE/METABOLIC Hx Endocrine Disorders: Yes Hx Diabetes Mellitus Type 2: Yes - HEMATOLOGICAL/ONCOLOGICAL Hx Blood Disorders: Yes Hx Anemia: Yes Hx Blood Transfusions: Yes Hx Cancer: Yes ( 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) - INTEGUMENTARY Hx Dermatological Problems: No - MUSCULOSKELETAL/RHEUMATOLOGICAL Hx Musculoskeletal Disorders: Yes Hx Back Pain: Yes Hx Falls: No - GASTROINTESTINAL Hx Gastrointestinal Disorders: Yes Hx Constipation: Yes Hx Gastritis: Yes Hx Pancreatitis: Yes - GENITOURINARY/GYNECOLOGICAL 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) - PSYCHIATRIC Hx Psychophysiologic Disorder: No Hx Substance Use: No - SURGICAL HISTORY Hx Surgeries: Yes Hx Carotid Endarterectomy: Yes Hx Eye Surgery: Yes (Cataract b/l) Other/Comment: 08-01-17 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 - ANESTHESIA Hx Anesthesia: Yes (anton ding) Hx Anesthesia Reactions: No Hx Malignant Hyperthermia: No Meds Allergies/Adverse Reactions: Allergies Allergy/AdvReac Type Severity Reaction Status Date / Time No Known Allergies Allergy Verified 11/19/18 13:47 - Medications Medications: Current Medications Aspirin (Ecotrin) 81 mg PO DAILY [facility] Last Admin: 11/21/18 09:32 Dose: 81 mg Clonidine HCl (Catapres) 0.1 mg PO BID [facility] Last Admin: 11/24/18 08:45 Dose: 0.1 mg Emollient Ointment (Vaseline Oint) 1 pkt TOP BID PRN PRN Reason: Dry skin Enalaprilat (Vasotec) 2.5 mg IV Q6 [facility] Last Admin: 11/24/18 09:41 Dose: Not Given Ferrous Sulfate (Feosol) 325 mg PO DAILY [facility] Last Admin: 11/24/18 08:41 Dose: 325 mg Home Med (Paricalcitol [Zemplar]) 1 mcg PO DAILY [facility] Metronidazole (Flagyl 500mg/100ml Ns) 100 mls @ 100 mls/hr IVPB Q8 [facility]; Protocol Last Admin: 11/24/18 08:46 Dose: 100 mls/hr Ceftriaxone Sodium 1 gm/ (Sodium Chloride) 100 mls @ 100 mls/hr IVPB DAILY [facility]; Protocol Last Admin: 11/24/18 08:15 Dose: 100 mls/hr Iron Sucrose 200 mg/ Sodium (Chloride) 110 mls @ 110 mls/hr IVPB DAILY [facility] Stop: 11/28/18 09:01 Last Admin: 11/24/18 08:00 Dose: 110 mls/hr Isosorbide Mononitrate (Imdur) 60 mg PO DAILY [facility] Last Admin: 11/24/18 08:41 Dose: 60 mg Metoprolol Tartrate (Lopressor) 75 mg PO Q12 [facility] Last Admin: 11/24/18 08:41 Dose: 75 mg Pantoprazole Sodium (Protonix Inj) 40 mg IVP Q12 [facility] Last Admin: 11/24/18 08:42 Dose: 40 mg Sodium Bicarbonate (Sodium Bicarbonate Tab) 650 mg PO Q6 [facility] Last Admin: 11/24/18 09:43 Dose: 650 mg Physical Exam - Constitutional Appears: Well - Head Exam Head Exam: ATRAUMATIC, NORMAL INSPECTION, NORMOCEPHALIC - Eye Exam Eye Exam: EOMI, Normal appearance, PERRL Pupil Exam: NORMAL ACCOMODATION, PERRL - ENT Exam ENT Exam: Mucous Membranes Moist, Normal Exam - Neck Exam Neck exam: Positive for: Normal Inspection - Respiratory Exam Respiratory Exam: Clear to Auscultation Bilateral, NORMAL BREATHING PATTERN - Cardiovascular Exam Cardiovascular Exam: REGULAR RHYTHM, RRR, +S1, +S2, Systolic Murmur - GI/Abdominal Exam GI & Abdominal Exam: Normal Bowel Sounds, Soft. absent: Tenderness - Extremities Exam Extremities exam: Positive for: normal inspection - Back Exam Back exam: NORMAL INSPECTION - Neurological Exam Neurological exam: Alert, CN II-XII Intact, Normal Gait, Oriented x3, Reflexes Normal - Psychiatric Exam Psychiatric exam: Normal Affect, Normal Mood - Skin Skin Exam: Dry, Intact, Normal Color, Warm Results - Vital Signs Recent Vital Signs: Last Vital Signs Temp 97.3 F L 11/24/18 12:19 Pulse 57 L 11/24/18 12:19 Resp 18 11/24/18 12:19 BP 151/69 H 11/24/18 12:19 Pulse Ox 96 11/24/18 12:19 - Labs Result Diagrams: 11/24/18 09:10 11/24/18 09:10 Labs: Laboratory Results - last 24 hr 11/22/18 11/24/18 11/24/18 00:01 09:10 09:10 WBC 6.4 RBC 2.83 L Hgb 8.8 L Hct 26.2 L MCV 92.6 MCH 30.9 MCHC 33.3 RDW 17.7 H Plt Count 167 Sodium 139 Potassium 4.7 Chloride 107 Carbon Dioxide 21 L Anion Gap 16 BUN 28 H Creatinine 2.6 H Est GFR ( Amer) 29 Est GFR (Non-Af Amer) 24 Random Glucose 103 Calcium 8.9 Ur Creatinine 24 Hour 0.39 L Ur Total Protein 24 Hr 265 H Protein/Creat Ratio 24h 679 H Assessment & Plan (1) Aortic stenosis Status: Chronic (2) Preop cardiovascular exam Assessment and Plan: As per ACC/AHA guidelines he can proceed with planned surgery with low to intermediate risk for perioperative cardiac event due to hx of will need to maintain afterload reduction perioperative BB cont bb and vasotec cont asa add statins Status: Acute (3) Bladder cancer Status: Acute (4) Hematochezia Status: Acute Priority: High (5) [id number] kidney injury Status: Acute Priority: High (6) Anemia Status: Acute Priority: High (7) HTN (hypertension) Status: Chronic Priority: Medium
[2018-11-24] MEDS ORDERED: Propofol 10 mg/ml Inj (20 ML) ONE (12:46)
[2018-11-24] MEDS ORDERED: Etomidate 20 mg/10ml Inj IV ONE (12:46)
[2018-11-24] MEDS ORDERED: cefTRIAXone (Rocephin) 1 gm Inj IM ONE (13:00)
[2018-11-24] MEDS ORDERED: Sodium Chloride 0.9% 500 ML IV ONE (13:00)
[2018-11-24] MEDS ORDERED: Iohexol 300 100 ML IJ ONE (13:15)
[2018-11-24] MEDS ORDERED: HYDROmorphone 0.5 mg/0.5 ml ISec IVP PRN (13:41)
--- NOTE | 2018-11-24 14:21 | CP.PCM.PN ---
Subjective - Date & Time of Evaluation Date of Evaluation: 11/24/18 Time of Evaluation: 14:20 - Subjective Subjective: Patient is stable awake and conscious feeling good Objective - Vital Signs/Intake and Output Vital Signs (last 24 hours): Temp Pulse Resp BP Pulse Ox 97.3 F L 57 L 18 151/69 H 96 11/24/18 12:19 11/24/18 12:19 11/24/18 12:19 11/24/18 12:19 11/24/18 12:19 Intake and Output: 11/24/18 11/24/18 06:59 18:59 Intake Total 250 Output Total 100 Balance 150 - Medications Medications: Current Medications Aspirin (Ecotrin) 81 mg PO DAILY [facility] Last Admin: 11/21/18 09:32 Dose: 81 mg Clonidine HCl (Catapres) 0.1 mg PO BID [facility] Last Admin: 11/24/18 08:45 Dose: 0.1 mg Emollient Ointment (Vaseline Oint) 1 pkt TOP BID PRN PRN Reason: Dry skin Enalaprilat (Vasotec) 2.5 mg IV Q6 [facility] Last Admin: 11/24/18 09:41 Dose: Not Given Ferrous Sulfate (Feosol) 325 mg PO DAILY [facility] Last Admin: 11/24/18 08:41 Dose: 325 mg Home Med (Paricalcitol [Zemplar]) 1 mcg PO DAILY [facility] Hydromorphone HCl (Dilaudid) 0.5 mg IVP Q15M PRN PRN Reason: Pain, severe (8-10) Stop: 11/24/18 15:41 Metronidazole (Flagyl 500mg/100ml Ns) 100 mls @ 100 mls/hr IVPB Q8 [facility]; Protocol Last Admin: 11/24/18 08:46 Dose: 100 mls/hr Ceftriaxone Sodium 1 gm/ (Sodium Chloride) 100 mls @ 100 mls/hr IVPB DAILY [facility]; Protocol Last Admin: 11/24/18 08:15 Dose: 100 mls/hr Iron Sucrose 200 mg/ Sodium (Chloride) 110 mls @ 110 mls/hr IVPB DAILY [facility] Stop: 11/28/18 09:01 Last Admin: 11/24/18 08:00 Dose: 110 mls/hr Isosorbide Mononitrate (Imdur) 60 mg PO DAILY [facility] Last Admin: 11/24/18 08:41 Dose: 60 mg Metoprolol Tartrate (Lopressor) 75 mg PO Q12 [facility] Last Admin: 11/24/18 08:41 Dose: 75 mg Ondansetron HCl (Zofran Inj) 4 mg IVP ONCE PRN PRN Reason: Nausea/Vomiting Stop: 11/24/18 15:41 Pantoprazole Sodium (Protonix Inj) 40 mg IVP Q12 [facility] Last Admin: 11/24/18 08:42 Dose: 40 mg Sodium Bicarbonate (Sodium Bicarbonate Tab) 650 mg PO Q6 [facility] Last Admin: 11/24/18 09:43 Dose: 650 mg - Labs Labs: 11/24/18 09:10 11/24/18 09:10 PT 11.9 Seconds (9.8-13.1) 11/19/18 14:10 INR 1.0 11/19/18 14:10 APTT 28.6 Seconds (25.6-37.1) 11/19/18 14:10 - Constitutional Appears: No Acute Distress - Eye Exam Eye Exam: Conjunctival injection - ENT Exam ENT Exam: Mucous Membranes Moist - Neck Exam Neck Exam: absent: Lymphadenopathy - Respiratory Exam Respiratory Exam: NORMAL BREATHING PATTERN. absent: Chest Wall Tenderness - Cardiovascular Exam Cardiovascular Exam: absent: Gallop, JVD, Rubs - GI/Abdominal Exam GI & Abdominal Exam: Soft, Normal Bowel Sounds - Extremities Exam Extremities Exam: absent: Calf Tenderness - Back Exam Back Exam: absent: CVA tenderness (L), CVA tenderness (R) - Neurological Exam Neurological Exam: Alert - Psychiatric Exam Psychiatric exam: Normal Affect - Skin Skin Exam: absent: Cyanosis Assessment and Plan (1) Acute kidney injury superimposed on CKD Assessment & Plan: Patient admitted with active GI bleeding with severe anemia Patient has a chronic kidney disease stage IV with super imposed acute kidney injury from the hemodynamic changes in the active GI bleeding. Right hydronephrosis Metabolic acidosis Hypertension Severe anemia from the GI bleeding My recommendation Discontinue losartan temporarily Hydration gently follow-up for cystoscopy as noted by the urologist Status: Chronic (2) Anemia Status: Acute
[2018-11-24] MEDS ORDERED: Morphine 15 mg Immediate Release Tab PO PRN (18:10)
[2018-11-24] MEDS: Morphine 4 MG/ML VIAL IVP PRN ×2 (19:49→23:55)
--- NOTE | 2018-11-24 23:57 | OP ---
PROCEDURE DATE: 11/24/2018 PREOPERATIVE DIAGNOSIS: Right hydronephrosis. 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 PROCEDURES PERFORMED: Cystoscopy, right ureteroscopy, stone basketing of multiple stones, and ureteroscopy with retrograde pyelogram at the level of the renal pelvis. SURGEON: Shaji Lord MD DESCRIPTION OF PROCEDURE: The patient was placed on the operating room table in a dorsal lithotomy position, given general anesthesia. The area of the groin was draped and prepped. At this time, using a regular cystoscope, I entered into the bladder atraumatically. The bladder showed some moderate trabeculation throughout, but I did not see any evidence of fronds or tumor within the bladder wall. At this time, I inserted a sensor wire into the right ureteral orifice. It appeared to be obstructed right at the beginning and then it went up easily. So, once the stent was radiologically in place in the area of the renal pelvis, I then used under direct vision, the uteroscope to assess that area. Immediately, within about the first 2 cm of the ureterovesical junction on the right, I came across some obstructing stones, which then I deployed a double-helical basket to engage them, and as I was taking them out, they broke up into many small fragments. So, I removed probably three stones, I am going to say the largest of which was about 5 to 6 mm, the other ones were somewhat smaller, but at the end, they all became just minuscule gravel. Once this was done, then I further advanced the ureteroscope to the level of the upper ureter around the area of the ureteropelvic junction and I could see fronds that are absolutely typical of transitional cell carcinoma. As I went further, it then became somewhat occluded by the friability of the tissue and the bleeding that ensued. So, at this time, I did a retrograde pyelogram and there appears to be a significant filling defect in this area. This to me is consistent with the tumor mass that I could see the beginning at the ureteropelvic junction. Once I identified this, I went back to the lower ureter where I made sure that all the stones were into very tiny fragments that he will easily pass on his own. I decided not to leave a J-stent because that would probably only cause further gross hematuria at this time. Final disposition will happen after, but at this time, we made the observations and the patient then was taken from the operating room in good condition. Shaji Lord MD
[2018-11-25] MEDS: metroNIDAZOLE 500mg/100ml NS 100 ML IVPB SCH ×3 (00:27→16:48)
[2018-11-25] MEDS ORDERED: Morphine 4 MG/ML VIAL IVP ONE (02:49)
--- NOTE | 2018-11-25 03:14 | CP.PCM.PCO ---
Addendum Addendum: 11/25/18 03:12 Called by RN around 0245 that pt c/o pain; has orders 2mg morphine PRN Q4, received at midnight and not due until 4 am. Came to assess pt; pt states that this dose used to help him before but now it is not; states pain is 10/10. Pt sitting at edge of bed, appears uncomfortable, rates pain 10/10, points to R flank; underwent cystoscopy today. 2 mg IVP morphine ordered as one time dose - [id number]
--- NOTE | 2018-11-25 11:04 | CP.PCM.PN ---
Subjective - Date & Time of Evaluation Date of Evaluation: 11/25/18 Time of Evaluation: 11:03 - Subjective Subjective: no overnight events Objective - Vital Signs/Intake and Output Vital Signs (last 24 hours): Temp Pulse Resp BP Pulse Ox 98.2 F 64 18 212/76 H 93 L 11/25/18 08:02 11/25/18 08:02 11/25/18 08:02 11/25/18 08:02 11/25/18 08:02 - Medications Medications: Current Medications Aspirin (Ecotrin) 81 mg PO DAILY [facility] Last Admin: 11/21/18 09:32 Dose: 81 mg Clonidine HCl (Catapres) 0.1 mg PO BID [facility] Last Admin: 11/24/18 08:45 Dose: 0.1 mg Clonidine HCl (Catapres) 0.2 mg PO TID [facility] Last Admin: 11/25/18 09:54 Dose: 0.2 mg Emollient Ointment (Vaseline Oint) 1 pkt TOP BID PRN PRN Reason: Dry skin Enalapril Maleate (Vasotec) 10 mg PO BID [facility] Last Admin: 11/25/18 09:54 Dose: 10 mg Enalaprilat (Vasotec) 2.5 mg IV Q6 [facility] Last Admin: 11/24/18 16:41 Dose: Not Given Ferrous Sulfate (Feosol) 325 mg PO DAILY [facility] Last Admin: 11/25/18 09:52 Dose: 325 mg Home Med (Paricalcitol [Zemplar]) 1 mcg PO DAILY [facility] Hydralazine HCl (Apresoline) 50 mg PO TID [facility] Last Admin: 11/25/18 09:53 Dose: 50 mg Metronidazole (Flagyl 500mg/100ml Ns) 100 mls @ 100 mls/hr IVPB Q8 [facility]; Protocol Last Admin: 11/25/18 09:50 Dose: 100 mls/hr Ceftriaxone Sodium 1 gm/ (Sodium Chloride) 100 mls @ 100 mls/hr IVPB DAILY [facility]; Protocol Last Admin: 11/25/18 09:00 Dose: 100 mls/hr Iron Sucrose 200 mg/ Sodium (Chloride) 110 mls @ 110 mls/hr IVPB DAILY [facility] Stop: 11/28/18 09:01 Last Admin: 11/25/18 09:50 Dose: 110 mls/hr Isosorbide Mononitrate (Imdur) 60 mg PO DAILY [facility] Last Admin: 11/25/18 09:53 Dose: 60 mg Metoprolol Tartrate (Lopressor) 100 mg PO Q12 [facility] Last Admin: 11/25/18 09:53 Dose: 100 mg Morphine Sulfate (Morphine) 2 mg IVP Q4 PRN PRN Reason: Pain, moderate (4-7) Last Admin: 11/24/18 23:55 Dose: 2 mg Pantoprazole Sodium (Protonix Inj) 40 mg IVP Q12 [facility] Last Admin: 11/25/18 09:51 Dose: 40 mg Sodium Bicarbonate (Sodium Bicarbonate Tab) 650 mg PO Q6 [facility] Last Admin: 11/25/18 09:53 Dose: 650 mg - Labs Labs: 11/24/18 09:10 11/24/18 09:10 PT 11.9 Seconds (9.8-13.1) 11/19/18 14:10 INR 1.0 11/19/18 14:10 APTT 28.6 Seconds (25.6-37.1) 11/19/18 14:10 - Head Exam Head Exam: NORMOCEPHALIC - Neck Exam Neck Exam: Normal Inspection - Respiratory Exam Respiratory Exam: Clear to Ausculation Bilateral - Cardiovascular Exam Cardiovascular Exam: REGULAR RHYTHM - GI/Abdominal Exam GI & Abdominal Exam: Soft, Normal Bowel Sounds Assessment and Plan - Assessment and Plan (Free Text) Assessment: 83 yo male with colitis doing well abx dc planning once kira
--- NOTE | 2018-11-25 11:51 | CP.PCM.PN ---
Subjective - Date & Time of Evaluation Date of Evaluation: 11/25/18 Time of Evaluation: 11:49 - Subjective Subjective: RENAL seen and examined s/p cysto yesterday + hematuria O: pe: vs as below gen: nad sclera: anicteric op: clear neck: supple cv: +s1+s2 no rub abd: soft nt nd ] lungs :reduced at bases abd: soft nt nd ext: no edema neuro: a+Ox3 no focal defecit psych: flat skin no rash imp/plan: ARF/ Hypertension /GIB/ Anemia/ Obstructive uropathy /acidosis plan: Cr is stable f/u reccs re: hematuria prbc per primary team as needed acidosis improving bp can inc hydral to 100 tid , will see if tolerates dominga-i Objective - Vital Signs/Intake and Output Vital Signs (last 24 hours): Temp Pulse Resp BP Pulse Ox 98.2 F 64 18 212/76 H 93 L 11/25/18 08:02 11/25/18 08:02 11/25/18 08:02 11/25/18 08:02 11/25/18 08:02 - Medications Medications: Current Medications Aspirin (Ecotrin) 81 mg PO DAILY [facility] Last Admin: 11/21/18 09:32 Dose: 81 mg Clonidine HCl (Catapres) 0.1 mg PO BID [facility] Last Admin: 11/24/18 08:45 Dose: 0.1 mg Clonidine HCl (Catapres) 0.2 mg PO TID [facility] Last Admin: 11/25/18 09:54 Dose: 0.2 mg Emollient Ointment (Vaseline Oint) 1 pkt TOP BID PRN PRN Reason: Dry skin Enalapril Maleate (Vasotec) 10 mg PO BID [facility] Last Admin: 11/25/18 09:54 Dose: 10 mg Enalaprilat (Vasotec) 2.5 mg IV Q6 [facility] Last Admin: 11/24/18 16:41 Dose: Not Given Ferrous Sulfate (Feosol) 325 mg PO DAILY [facility] Last Admin: 11/25/18 09:52 Dose: 325 mg Home Med (Paricalcitol [Zemplar]) 1 mcg PO DAILY [facility] Hydralazine HCl (Apresoline) 50 mg PO TID [facility] Last Admin: 11/25/18 09:53 Dose: 50 mg Metronidazole (Flagyl 500mg/100ml Ns) 100 mls @ 100 mls/hr IVPB Q8 [facility]; Protocol Last Admin: 11/25/18 09:50 Dose: 100 mls/hr Ceftriaxone Sodium 1 gm/ (Sodium Chloride) 100 mls @ 100 mls/hr IVPB DAILY [facility]; Protocol Last Admin: 11/25/18 09:00 Dose: 100 mls/hr Iron Sucrose 200 mg/ Sodium (Chloride) 110 mls @ 110 mls/hr IVPB DAILY [facility] Stop: 11/28/18 09:01 Last Admin: 11/25/18 09:50 Dose: 110 mls/hr Isosorbide Mononitrate (Imdur) 60 mg PO DAILY [facility] Last Admin: 11/25/18 09:53 Dose: 60 mg Metoprolol Tartrate (Lopressor) 100 mg PO Q12 [facility] Last Admin: 11/25/18 09:53 Dose: 100 mg Morphine Sulfate (Morphine) 2 mg IVP Q4 PRN PRN Reason: Pain, moderate (4-7) Last Admin: 11/24/18 23:55 Dose: 2 mg Pantoprazole Sodium (Protonix Inj) 40 mg IVP Q12 [facility] Last Admin: 11/25/18 09:51 Dose: 40 mg Sodium Bicarbonate (Sodium Bicarbonate Tab) 650 mg PO Q6 [facility] Last Admin: 11/25/18 09:53 Dose: 650 mg - Labs Labs: 11/24/18 09:10 11/24/18 09:10 PT 11.9 Seconds (9.8-13.1) 11/19/18 14:10 INR 1.0 11/19/18 14:10 APTT 28.6 Seconds (25.6-37.1) 11/19/18 14:10
--- NOTE | 2018-11-25 17:32 | CP.PCM.PN ---
Subjective - Date & Time of Evaluation Date of Evaluation: 11/25/18 Time of Evaluation: 14:40 - Subjective Subjective: F/U Hematochezia. Colitis. No A/D, no abdominal pain, no rectal bleeding. Objective - Vital Signs/Intake and Output Vital Signs (last 24 hours): Temp Pulse Resp BP Pulse Ox 98 F 63 16 164/67 H 91 L 11/25/18 16:33 11/25/18 16:33 11/25/18 16:33 11/25/18 16:33 11/25/18 16:33 - Medications Medications: Current Medications Aspirin (Ecotrin) 81 mg PO DAILY [facility] Last Admin: 11/21/18 09:32 Dose: 81 mg Clonidine HCl (Catapres) 0.1 mg PO BID [facility] Last Admin: 11/24/18 08:45 Dose: 0.1 mg Clonidine HCl (Catapres) 0.2 mg PO TID [facility] Last Admin: 11/25/18 16:48 Dose: 0.2 mg Emollient Ointment (Vaseline Oint) 1 pkt TOP BID PRN PRN Reason: Dry skin Enalapril Maleate (Vasotec) 10 mg PO BID [facility] Last Admin: 11/25/18 16:48 Dose: 10 mg Enalaprilat (Vasotec) 2.5 mg IV Q6 [facility] Last Admin: 11/24/18 16:41 Dose: Not Given Ferrous Sulfate (Feosol) 325 mg PO DAILY [facility] Last Admin: 11/25/18 09:52 Dose: 325 mg Home Med (Paricalcitol [Zemplar]) 1 mcg PO DAILY [facility] Hydralazine HCl (Apresoline) 50 mg PO TID [facility] Last Admin: 11/25/18 16:48 Dose: 50 mg Metronidazole (Flagyl 500mg/100ml Ns) 100 mls @ 100 mls/hr IVPB Q8 [facility]; Protocol Last Admin: 11/25/18 16:48 Dose: 100 mls/hr Ceftriaxone Sodium 1 gm/ (Sodium Chloride) 100 mls @ 100 mls/hr IVPB DAILY [facility]; Protocol Last Admin: 11/25/18 09:00 Dose: 100 mls/hr Iron Sucrose 200 mg/ Sodium (Chloride) 110 mls @ 110 mls/hr IVPB DAILY [facility] Stop: 11/28/18 09:01 Last Admin: 11/25/18 09:50 Dose: 110 mls/hr Isosorbide Mononitrate (Imdur) 60 mg PO DAILY [facility] Last Admin: 11/25/18 09:53 Dose: 60 mg Metoprolol Tartrate (Lopressor) 100 mg PO Q12 [facility] Last Admin: 11/25/18 09:53 Dose: 100 mg Morphine Sulfate (Morphine) 2 mg IVP Q4 PRN PRN Reason: Pain, moderate (4-7) Last Admin: 11/24/18 23:55 Dose: 2 mg Pantoprazole Sodium (Protonix Inj) 40 mg IVP Q12 [facility] Last Admin: 11/25/18 09:51 Dose: 40 mg Sodium Bicarbonate (Sodium Bicarbonate Tab) 650 mg PO Q6 [facility] Last Admin: 11/25/18 16:49 Dose: 650 mg - Labs Labs: 11/24/18 09:10 11/24/18 09:10 PT 11.9 Seconds (9.8-13.1) 11/19/18 14:10 INR 1.0 11/19/18 14:10 APTT 28.6 Seconds (25.6-37.1) 11/19/18 14:10 - Constitutional Appears: No Acute Distress - Head Exam Head Exam: NORMAL INSPECTION - Eye Exam Eye Exam: PERRL - ENT Exam ENT Exam: Normal Exam - Neck Exam Neck Exam: Normal Inspection - Respiratory Exam Respiratory Exam: Decreased Breath Sounds (at bases) - Cardiovascular Exam Cardiovascular Exam: REGULAR RHYTHM, Murmur - GI/Abdominal Exam GI & Abdominal Exam: Soft, Normal Bowel Sounds - Extremities Exam Extremities Exam: Normal Inspection - Back Exam Back Exam: NORMAL INSPECTION - Neurological Exam Neurological Exam: Alert, Oriented x3 Additional comments: No focal motor/sensory deficit, weakness. - Psychiatric Exam Psychiatric exam: Normal Affect, Normal Mood - Skin Skin Exam: Warm Assessment and Plan (1) Colitis Status: Acute (2) Bladder cancer Status: Acute (3) Hematochezia Status: Acute (4) Anemia Status: Acute (5) Acute kidney injury 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: Chronic (6) Generalized weakness Status: Chronic (7) Congestive heart failure (CHF) Status: Chronic (8) Aortic stenosis Status: Chronic (9) COPD (chronic obstructive pulmonary disease) Status: Chronic (10) DMII (diabetes mellitus, type 2) Status: Chronic (11) Gastritis Status: Chronic (12) HTN (hypertension) Status: Chronic - Assessment and Plan (Free Text) Plan: S/P Cystoscopy showed papillary cell Ca of the ureter and renal pelvis. Basket extraction of Low urethral calculi. F/u with Hematology disaster recovery consultant, continue current Tx.
--- NOTE | 2018-11-25 22:03 | CP.PCM.PN ---
Subjective - Date & Time of Evaluation Date of Evaluation: 11/23/18 Time of Evaluation: 12:00 - Subjective Subjective: No complaints. Objective - Vital Signs/Intake and Output Vital Signs (last 24 hours): Temp Pulse Resp BP Pulse Ox 97.8 F 61 16 143/66 91 L 11/25/18 19:55 11/25/18 21:22 11/25/18 19:55 11/25/18 21:22 11/25/18 19:55 - Medications Medications: Current Medications Aspirin (Ecotrin) 81 mg PO DAILY [facility] Last Admin: 11/21/18 09:32 Dose: 81 mg Clonidine HCl (Catapres) 0.1 mg PO BID [facility] Last Admin: 11/24/18 08:45 Dose: 0.1 mg Clonidine HCl (Catapres) 0.2 mg PO TID [facility] Last Admin: 11/25/18 16:48 Dose: 0.2 mg Emollient Ointment (Vaseline Oint) 1 pkt TOP BID PRN PRN Reason: Dry skin Enalapril Maleate (Vasotec) 10 mg PO BID [facility] Last Admin: 11/25/18 16:48 Dose: 10 mg Enalaprilat (Vasotec) 2.5 mg IV Q6 [facility] Last Admin: 11/24/18 16:41 Dose: Not Given Ferrous Sulfate (Feosol) 325 mg PO DAILY [facility] Last Admin: 11/25/18 09:52 Dose: 325 mg Home Med (Paricalcitol [Zemplar]) 1 mcg PO DAILY [facility] Hydralazine HCl (Apresoline) 50 mg PO TID [facility] Last Admin: 11/25/18 16:48 Dose: 50 mg Metronidazole (Flagyl 500mg/100ml Ns) 100 mls @ 100 mls/hr IVPB Q8 [facility]; Protocol Last Admin: 11/25/18 16:48 Dose: 100 mls/hr Ceftriaxone Sodium 1 gm/ (Sodium Chloride) 100 mls @ 100 mls/hr IVPB DAILY [facility]; Protocol Last Admin: 11/25/18 09:00 Dose: 100 mls/hr Iron Sucrose 200 mg/ Sodium (Chloride) 110 mls @ 110 mls/hr IVPB DAILY [facility] Stop: 11/28/18 09:01 Last Admin: 11/25/18 09:50 Dose: 110 mls/hr Isosorbide Mononitrate (Imdur) 60 mg PO DAILY [facility] Last Admin: 11/25/18 09:53 Dose: 60 mg Metoprolol Tartrate (Lopressor) 100 mg PO Q12 [facility] Last Admin: 11/25/18 21:22 Dose: 100 mg Morphine Sulfate (Morphine) 2 mg IVP Q4 PRN PRN Reason: Pain, moderate (4-7) Last Admin: 11/24/18 23:55 Dose: 2 mg Pantoprazole Sodium (Protonix Inj) 40 mg IVP Q12 [facility] Last Admin: 11/25/18 21:23 Dose: 40 mg Sodium Bicarbonate (Sodium Bicarbonate Tab) 650 mg PO Q6 [facility] Last Admin: 11/25/18 21:22 Dose: 650 mg - Labs Labs: 11/24/18 09:10 11/24/18 09:10 PT 11.9 Seconds (9.8-13.1) 11/19/18 14:10 INR 1.0 11/19/18 14:10 APTT 28.6 Seconds (25.6-37.1) 11/19/18 14:10 - Head Exam Head Exam: ATRAUMATIC - Eye Exam Eye Exam: Normal appearance - ENT Exam ENT Exam: Mucous Membranes Dry - Respiratory Exam Respiratory Exam: NORMAL BREATHING PATTERN - Cardiovascular Exam Cardiovascular Exam: +S1, +S2 - GI/Abdominal Exam GI & Abdominal Exam: Normal Bowel Sounds Assessment and Plan (1) Anemia Assessment & Plan: iron deficiency anemia from likely chronic GI blood loss, ? hematuria from bl adder tumor hematochezia resolved on IV iron anemia of CKD - s/p Procrit Status: Acute (2) Bladder cancer Assessment & Plan: not muscle invasive for cytoscopy Status: Acute
--- NOTE | 2018-11-25 22:06 | CP.PCM.PN ---
Subjective - Date & Time of Evaluation Date of Evaluation: 11/24/18 Time of Evaluation: 10:00 - Subjective Subjective: For cystoscopy Objective - Vital Signs/Intake and Output Vital Signs (last 24 hours): Temp Pulse Resp BP Pulse Ox 97.8 F 61 16 143/66 91 L 11/25/18 19:55 11/25/18 21:22 11/25/18 19:55 11/25/18 21:22 11/25/18 19:55 - Medications Medications: Current Medications Aspirin (Ecotrin) 81 mg PO DAILY [facility] Last Admin: 11/21/18 09:32 Dose: 81 mg Clonidine HCl (Catapres) 0.1 mg PO BID [facility] Last Admin: 11/24/18 08:45 Dose: 0.1 mg Clonidine HCl (Catapres) 0.2 mg PO TID [facility] Last Admin: 11/25/18 16:48 Dose: 0.2 mg Emollient Ointment (Vaseline Oint) 1 pkt TOP BID PRN PRN Reason: Dry skin Enalapril Maleate (Vasotec) 10 mg PO BID [facility] Last Admin: 11/25/18 16:48 Dose: 10 mg Enalaprilat (Vasotec) 2.5 mg IV Q6 [facility] Last Admin: 11/24/18 16:41 Dose: Not Given Ferrous Sulfate (Feosol) 325 mg PO DAILY [facility] Last Admin: 11/25/18 09:52 Dose: 325 mg Home Med (Paricalcitol [Zemplar]) 1 mcg PO DAILY [facility] Hydralazine HCl (Apresoline) 50 mg PO TID [facility] Last Admin: 11/25/18 16:48 Dose: 50 mg Metronidazole (Flagyl 500mg/100ml Ns) 100 mls @ 100 mls/hr IVPB Q8 [facility]; Protocol Last Admin: 11/25/18 16:48 Dose: 100 mls/hr Ceftriaxone Sodium 1 gm/ (Sodium Chloride) 100 mls @ 100 mls/hr IVPB DAILY [facility]; Protocol Last Admin: 11/25/18 09:00 Dose: 100 mls/hr Iron Sucrose 200 mg/ Sodium (Chloride) 110 mls @ 110 mls/hr IVPB DAILY [facility] Stop: 11/28/18 09:01 Last Admin: 11/25/18 09:50 Dose: 110 mls/hr Isosorbide Mononitrate (Imdur) 60 mg PO DAILY [facility] Last Admin: 11/25/18 09:53 Dose: 60 mg Metoprolol Tartrate (Lopressor) 100 mg PO Q12 [facility] Last Admin: 11/25/18 21:22 Dose: 100 mg Morphine Sulfate (Morphine) 2 mg IVP Q4 PRN PRN Reason: Pain, moderate (4-7) Last Admin: 11/24/18 23:55 Dose: 2 mg Pantoprazole Sodium (Protonix Inj) 40 mg IVP Q12 [facility] Last Admin: 11/25/18 21:23 Dose: 40 mg Sodium Bicarbonate (Sodium Bicarbonate Tab) 650 mg PO Q6 [facility] Last Admin: 11/25/18 21:22 Dose: 650 mg - Labs Labs: 11/24/18 09:10 11/24/18 09:10 PT 11.9 Seconds (9.8-13.1) 11/19/18 14:10 INR 1.0 11/19/18 14:10 APTT 28.6 Seconds (25.6-37.1) 11/19/18 14:10 - Head Exam Head Exam: ATRAUMATIC - Eye Exam Eye Exam: Normal appearance - ENT Exam ENT Exam: Mucous Membranes Dry - Respiratory Exam Respiratory Exam: NORMAL BREATHING PATTERN - Cardiovascular Exam Cardiovascular Exam: +S1, +S2 - GI/Abdominal Exam GI & Abdominal Exam: Normal Bowel Sounds Assessment and Plan (1) Anemia Assessment & Plan: iron deficiency anemia from likely chronic GI blood loss, ? hematuria from bl adder tumor hematochezia resolved on IV iron anemia of CKD - s/p Procrit Status: Acute (2) Bladder cancer Assessment & Plan: for cytoscopy prior bladder tumor resection; not muscle invasive Status: Acute
--- NOTE | 2018-11-25 22:09 | CP.PCM.PN ---
Subjective - Date & Time of Evaluation Date of Evaluation: 11/25/18 Time of Evaluation: 18:00 - Subjective Subjective: No complaints Objective - Vital Signs/Intake and Output Vital Signs (last 24 hours): Temp Pulse Resp BP Pulse Ox 97.8 F 61 16 143/66 91 L 11/25/18 19:55 11/25/18 21:22 11/25/18 19:55 11/25/18 21:22 11/25/18 19:55 - Medications Medications: Current Medications Aspirin (Ecotrin) 81 mg PO DAILY [facility] Last Admin: 11/21/18 09:32 Dose: 81 mg Clonidine HCl (Catapres) 0.1 mg PO BID [facility] Last Admin: 11/24/18 08:45 Dose: 0.1 mg Clonidine HCl (Catapres) 0.2 mg PO TID [facility] Last Admin: 11/25/18 16:48 Dose: 0.2 mg Emollient Ointment (Vaseline Oint) 1 pkt TOP BID PRN PRN Reason: Dry skin Enalapril Maleate (Vasotec) 10 mg PO BID [facility] Last Admin: 11/25/18 16:48 Dose: 10 mg Enalaprilat (Vasotec) 2.5 mg IV Q6 [facility] Last Admin: 11/24/18 16:41 Dose: Not Given Ferrous Sulfate (Feosol) 325 mg PO DAILY [facility] Last Admin: 11/25/18 09:52 Dose: 325 mg Home Med (Paricalcitol [Zemplar]) 1 mcg PO DAILY [facility] Hydralazine HCl (Apresoline) 50 mg PO TID [facility] Last Admin: 11/25/18 16:48 Dose: 50 mg Metronidazole (Flagyl 500mg/100ml Ns) 100 mls @ 100 mls/hr IVPB Q8 [facility]; Protocol Last Admin: 11/25/18 16:48 Dose: 100 mls/hr Ceftriaxone Sodium 1 gm/ (Sodium Chloride) 100 mls @ 100 mls/hr IVPB DAILY [facility]; Protocol Last Admin: 11/25/18 09:00 Dose: 100 mls/hr Iron Sucrose 200 mg/ Sodium (Chloride) 110 mls @ 110 mls/hr IVPB DAILY [facility] Stop: 11/28/18 09:01 Last Admin: 11/25/18 09:50 Dose: 110 mls/hr Isosorbide Mononitrate (Imdur) 60 mg PO DAILY [facility] Last Admin: 11/25/18 09:53 Dose: 60 mg Metoprolol Tartrate (Lopressor) 100 mg PO Q12 [facility] Last Admin: 11/25/18 21:22 Dose: 100 mg Morphine Sulfate (Morphine) 2 mg IVP Q4 PRN PRN Reason: Pain, moderate (4-7) Last Admin: 11/24/18 23:55 Dose: 2 mg Pantoprazole Sodium (Protonix Inj) 40 mg IVP Q12 [facility] Last Admin: 11/25/18 21:23 Dose: 40 mg Sodium Bicarbonate (Sodium Bicarbonate Tab) 650 mg PO Q6 [facility] Last Admin: 11/25/18 21:22 Dose: 650 mg - Labs Labs: 11/24/18 09:10 11/24/18 09:10 PT 11.9 Seconds (9.8-13.1) 11/19/18 14:10 INR 1.0 11/19/18 14:10 APTT 28.6 Seconds (25.6-37.1) 11/19/18 14:10 - Head Exam Head Exam: ATRAUMATIC - Eye Exam Eye Exam: Normal appearance - ENT Exam ENT Exam: Mucous Membranes Dry - Respiratory Exam Respiratory Exam: NORMAL BREATHING PATTERN - Cardiovascular Exam Cardiovascular Exam: +S1, +S2 - GI/Abdominal Exam GI & Abdominal Exam: Normal Bowel Sounds Assessment and Plan (1) Anemia Assessment & Plan: iron deficiency anemia from likely chronic GI blood loss and hematuria from ur eteral tumor no hematochezia on IV iron anemia of CKD - s/p Procrit Status: Acute (2) Bladder cancer Assessment & Plan: superficial s/p resection cytoscopy findings noted; 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 candidate for surgery Status: Acute
[2018-11-26 00:16] VITALS: RESP 18
[2018-11-26] MEDS: metroNIDAZOLE 500mg/100ml NS 100 ML IVPB SCH ×3 (00:19→17:15)
--- NOTE | 2018-11-26 12:43 | CP.PCM.PN ---
Subjective - Date & Time of Evaluation Date of Evaluation: 11/26/18 Time of Evaluation: 12:42 - Subjective Subjective: RENAL seen and examined less hematuria O: pe: vs as below gen: nad sclera: anicteric op: clear neck: supple cv: +s1+s2 no rub lungs :reduced at bases abd: soft nt nd ext: no edema neuro: a+Ox3 no focal deficit psych: flat skin no rash imp/plan: ARF/ Hypertension /GIB/ Anemia/ Obstructive uropathy /acidosis plan: Cr is mildly improved f/u reccs re: hematuria prbc per primary team as needed acidosis improving bp improving Objective - Vital Signs/Intake and Output Vital Signs (last 24 hours): Temp Pulse Resp BP Pulse Ox 97.6 F 70 18 156/75 H 92 L 11/26/18 12:06 11/26/18 12:06 11/26/18 12:06 11/26/18 12:06 11/26/18 12:06 - Medications Medications: Current Medications Aspirin (Ecotrin) 81 mg PO DAILY [facility] Last Admin: 11/21/18 09:32 Dose: 81 mg Clonidine HCl (Catapres) 0.1 mg PO BID [facility] Last Admin: 11/24/18 08:45 Dose: 0.1 mg Clonidine HCl (Catapres) 0.2 mg PO TID [facility] Last Admin: 11/26/18 08:32 Dose: 0.2 mg Emollient Ointment (Vaseline Oint) 1 pkt TOP BID PRN PRN Reason: Dry skin Enalapril Maleate (Vasotec) 10 mg PO BID [facility] Last Admin: 11/26/18 08:31 Dose: 10 mg Enalaprilat (Vasotec) 2.5 mg IV Q6 [facility] Last Admin: 11/24/18 16:41 Dose: Not Given Ferrous Sulfate (Feosol) 325 mg PO DAILY [facility] Last Admin: 11/26/18 08:32 Dose: 325 mg Home Med (Paricalcitol [Zemplar]) 1 mcg PO DAILY [facility] Hydralazine HCl (Apresoline) 50 mg PO TID [facility] Last Admin: 11/26/18 08:32 Dose: 50 mg Metronidazole (Flagyl 500mg/100ml Ns) 100 mls @ 100 mls/hr IVPB Q8 [facility]; Protocol Last Admin: 11/26/18 09:49 Dose: 100 mls/hr Ceftriaxone Sodium 1 gm/ (Sodium Chloride) 100 mls @ 100 mls/hr IVPB DAILY [facility]; Protocol Last Admin: 11/26/18 08:34 Dose: 100 mls/hr Iron Sucrose 200 mg/ Sodium (Chloride) 110 mls @ 110 mls/hr IVPB DAILY [facility] Stop: 11/28/18 09:01 Last Admin: 11/26/18 10:49 Dose: 110 mls/hr Isosorbide Mononitrate (Imdur) 60 mg PO DAILY [facility] Last Admin: 11/26/18 08:31 Dose: 60 mg Metoprolol Tartrate (Lopressor) 100 mg PO Q12 [facility] Last Admin: 11/26/18 08:31 Dose: 100 mg Morphine Sulfate (Morphine) 2 mg IVP Q4 PRN PRN Reason: Pain, moderate (4-7) Last Admin: 11/24/18 23:55 Dose: 2 mg Pantoprazole Sodium (Protonix Inj) 40 mg IVP Q12 [facility] Last Admin: 11/26/18 08:31 Dose: 40 mg Sodium Bicarbonate (Sodium Bicarbonate Tab) 650 mg PO Q6 [facility] Last Admin: 11/26/18 09:48 Dose: 650 mg - Labs Labs: 11/24/18 09:10 11/24/18 09:10 PT 11.9 Seconds (9.8-13.1) 11/19/18 14:10 INR 1.0 11/19/18 14:10 APTT 28.6 Seconds (25.6-37.1) 11/19/18 14:10
--- NOTE | 2018-11-26 17:20 | CP.PCM.PN ---
Subjective - Date & Time of Evaluation Date of Evaluation: 11/26/18 Time of Evaluation: 16:30 - Subjective Subjective: F/U Hematochezia, Colitis. No abdominal pain, no rectal bleeding, hematuria. Objective - Vital Signs/Intake and Output Vital Signs (last 24 hours): Temp Pulse Resp BP Pulse Ox 97.8 F 69 18 178/67 H 95 11/26/18 16:24 11/26/18 16:24 11/26/18 16:24 11/26/18 16:24 11/26/18 16:24 - Medications Medications: Current Medications Aspirin (Ecotrin) 81 mg PO DAILY [facility] Last Admin: 11/21/18 09:32 Dose: 81 mg Clonidine HCl (Catapres) 0.1 mg PO BID [facility] Last Admin: 11/24/18 08:45 Dose: 0.1 mg Clonidine HCl (Catapres) 0.2 mg PO TID [facility] Last Admin: 11/26/18 13:28 Dose: 0.2 mg Emollient Ointment (Vaseline Oint) 1 pkt TOP BID PRN PRN Reason: Dry skin Enalapril Maleate (Vasotec) 10 mg PO BID [facility] Last Admin: 11/26/18 08:31 Dose: 10 mg Enalaprilat (Vasotec) 2.5 mg IV Q6 [facility] Last Admin: 11/24/18 16:41 Dose: Not Given Ferrous Sulfate (Feosol) 325 mg PO DAILY [facility] Last Admin: 11/26/18 08:32 Dose: 325 mg Home Med (Paricalcitol [Zemplar]) 1 mcg PO DAILY [facility] Hydralazine HCl (Apresoline) 50 mg PO TID [facility] Last Admin: 11/26/18 14:54 Dose: 50 mg Metronidazole (Flagyl 500mg/100ml Ns) 100 mls @ 100 mls/hr IVPB Q8 [facility]; Protocol Last Admin: 11/26/18 09:49 Dose: 100 mls/hr Ceftriaxone Sodium 1 gm/ (Sodium Chloride) 100 mls @ 100 mls/hr IVPB DAILY [facility]; Protocol Last Admin: 11/26/18 08:34 Dose: 100 mls/hr Iron Sucrose 200 mg/ Sodium (Chloride) 110 mls @ 110 mls/hr IVPB DAILY [facility] Stop: 11/28/18 09:01 Last Admin: 11/26/18 10:49 Dose: 110 mls/hr Isosorbide Mononitrate (Imdur) 60 mg PO DAILY [facility] Last Admin: 11/26/18 08:31 Dose: 60 mg Metoprolol Tartrate (Lopressor) 100 mg PO Q12 [facility] Last Admin: 11/26/18 08:31 Dose: 100 mg Morphine Sulfate (Morphine) 2 mg IVP Q4 PRN PRN Reason: Pain, moderate (4-7) Last Admin: 11/24/18 23:55 Dose: 2 mg Pantoprazole Sodium (Protonix Inj) 40 mg IVP Q12 [facility] Last Admin: 11/26/18 08:31 Dose: 40 mg Sodium Bicarbonate (Sodium Bicarbonate Tab) 650 mg PO Q6 [facility] Last Admin: 11/26/18 09:48 Dose: 650 mg - Labs Labs: 11/24/18 09:10 11/24/18 09:10 PT 11.9 Seconds (9.8-13.1) 11/19/18 14:10 INR 1.0 11/19/18 14:10 APTT 28.6 Seconds (25.6-37.1) 11/19/18 14:10 - Constitutional Appears: No Acute Distress - Head Exam Head Exam: NORMAL INSPECTION - Eye Exam Eye Exam: PERRL - ENT Exam ENT Exam: Normal Exam - Neck Exam Neck Exam: Normal Inspection - Respiratory Exam Respiratory Exam: Decreased Breath Sounds (at bases) - Cardiovascular Exam Cardiovascular Exam: REGULAR RHYTHM, Murmur - GI/Abdominal Exam GI & Abdominal Exam: Soft, Normal Bowel Sounds - Exam Additional comments: Garza Cath - Back Exam Back Exam: NORMAL INSPECTION - Neurological Exam Neurological Exam: Alert, Oriented x3 Additional comments: No focal motor/sensory deficit, weakness. - Psychiatric Exam Psychiatric exam: Normal Affect, Normal Mood - Skin Skin Exam: Warm Assessment and Plan (1) Colitis Status: Acute (2) Bladder cancer Status: Acute (3) Hematochezia Status: Acute (4) Anemia Status: Acute (5) Acute kidney injury 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: Chronic (6) Generalized weakness Status: Chronic (7) Congestive heart failure (CHF) Status: Chronic (8) Aortic stenosis Status: Chronic (9) COPD (chronic obstructive pulmonary disease) Status: Chronic (10) DMII (diabetes mellitus, type 2) Status: Chronic (11) Gastritis Status: Chronic (12) HTN (hypertension) Status: Chronic - Assessment and Plan (Free Text) Plan: Continue Rocephin, Flagyl, Lopressor, Indur, Vasotec, ASA and rest of Tx. Hematology consult appreciated.
[2018-11-27] MEDS: metroNIDAZOLE 500mg/100ml NS 100 ML IVPB SCH (00:12)
--- NOTE | 2018-11-27 10:57 | CP.PCM.PN ---
Subjective - Date & Time of Evaluation Date of Evaluation: 11/27/18 Time of Evaluation: 10:56 - Subjective Subjective: Patient feeling much better no nausea no vomiting Vital signs stable Objective - Vital Signs/Intake and Output Vital Signs (last 24 hours): Temp Pulse Resp BP Pulse Ox 98.3 F 75 18 170/71 H 94 L 11/27/18 08:04 11/27/18 09:34 11/27/18 08:04 11/27/18 09:34 11/27/18 08:04 Intake and Output: 11/27/18 11/27/18 06:59 18:59 Output Total 850 Balance -850 - Medications Medications: Current Medications Aspirin (Ecotrin) 81 mg PO DAILY [facility] Last Admin: 11/21/18 09:32 Dose: 81 mg Clonidine HCl (Catapres) 0.1 mg PO BID [facility] Last Admin: 11/24/18 08:45 Dose: 0.1 mg Clonidine HCl (Catapres) 0.2 mg PO TID [facility] Last Admin: 11/27/18 09:32 Dose: 0.2 mg Emollient Ointment (Vaseline Oint) 1 pkt TOP BID PRN PRN Reason: Dry skin Enalapril Maleate (Vasotec) 10 mg PO BID [facility] Last Admin: 11/27/18 09:35 Dose: 10 mg Enalaprilat (Vasotec) 2.5 mg IV Q6 [facility] Last Admin: 11/24/18 16:41 Dose: Not Given Ferrous Sulfate (Feosol) 325 mg PO DAILY [facility] Last Admin: 11/27/18 09:33 Dose: 325 mg Home Med (Paricalcitol [Zemplar]) 1 mcg PO DAILY [facility] Hydralazine HCl (Apresoline) 50 mg PO TID [facility] Last Admin: 11/27/18 09:31 Dose: 50 mg Iron Sucrose 200 mg/ Sodium (Chloride) 110 mls @ 110 mls/hr IVPB DAILY [facility] Stop: 11/28/18 09:01 Last Admin: 11/27/18 09:36 Dose: 110 mls/hr Isosorbide Mononitrate (Imdur) 60 mg PO DAILY [facility] Last Admin: 11/27/18 09:34 Dose: 60 mg Metoprolol Tartrate (Lopressor) 100 mg PO Q12 [facility] Last Admin: 11/27/18 09:34 Dose: 100 mg Morphine Sulfate (Morphine) 2 mg IVP Q4 PRN PRN Reason: Pain, moderate (4-7) Last Admin: 11/24/18 23:55 Dose: 2 mg Sodium Bicarbonate (Sodium Bicarbonate Tab) 650 mg PO Q6 [facility] Last Admin: 11/27/18 09:35 Dose: 650 mg - Labs Labs: 11/24/18 09:10 11/24/18 09:10 PT 11.9 Seconds (9.8-13.1) 11/19/18 14:10 INR 1.0 11/19/18 14:10 APTT 28.6 Seconds (25.6-37.1) 11/19/18 14:10 - Constitutional Appears: No Acute Distress - Eye Exam Eye Exam: Conjunctival injection - ENT Exam ENT Exam: Mucous Membranes Moist - Neck Exam Neck Exam: absent: Lymphadenopathy - GI/Abdominal Exam GI & Abdominal Exam: Soft, Normal Bowel Sounds - Extremities Exam Extremities Exam: absent: Calf Tenderness - Back Exam Back Exam: absent: CVA tenderness (L), CVA tenderness (R) - Neurological Exam Neurological Exam: Alert - Psychiatric Exam Psychiatric exam: Normal Affect - Skin Skin Exam: absent: Cyanosis Assessment and Plan (1) Acute kidney injury superimposed on CKD Assessment & Plan: Patient admitted with active GI bleeding with severe anemia Patient has a chronic kidney disease stage IV with super imposed acute kidney injury from the hemodynamic changes in the active GI bleeding. Right hydronephrosis Metabolic acidosis Hypertension Severe anemia from the GI bleeding My recommendation Discontinue losartan temporarily Hydration gently follow-up As per urology Status: Chronic (2) Anemia Status: Acute
--- NOTE | 2018-11-27 11:08 | CP.PCM.PN ---
Subjective - Date & Time of Evaluation Date of Evaluation: 11/27/18 Time of Evaluation: 11:06 - Subjective Subjective: Pt seen and examined at bedside this morning, no new complaints at this time. Per nursing, blood pressure 200/81, Dr. Sarmiento was made aware. Hydralazine 10mg given. Objective - Vital Signs/Intake and Output Vital Signs (last 24 hours): Temp Pulse Resp BP Pulse Ox 98.3 F 75 18 170/71 H 94 L 11/27/18 08:04 11/27/18 09:34 11/27/18 08:04 11/27/18 09:34 11/27/18 08:04 Intake and Output: 11/27/18 11/27/18 06:59 18:59 Output Total 850 Balance -850 - Medications Medications: Current Medications Aspirin (Ecotrin) 81 mg PO DAILY [facility] Last Admin: 11/21/18 09:32 Dose: 81 mg Clonidine HCl (Catapres) 0.1 mg PO BID [facility] Last Admin: 11/24/18 08:45 Dose: 0.1 mg Clonidine HCl (Catapres) 0.2 mg PO TID [facility] Last Admin: 11/27/18 09:32 Dose: 0.2 mg Emollient Ointment (Vaseline Oint) 1 pkt TOP BID PRN PRN Reason: Dry skin Enalapril Maleate (Vasotec) 10 mg PO BID [facility] Last Admin: 11/27/18 09:35 Dose: 10 mg Enalaprilat (Vasotec) 2.5 mg IV Q6 [facility] Last Admin: 11/24/18 16:41 Dose: Not Given Ferrous Sulfate (Feosol) 325 mg PO DAILY [facility] Last Admin: 11/27/18 09:33 Dose: 325 mg Home Med (Paricalcitol [Zemplar]) 1 mcg PO DAILY [facility] Hydralazine HCl (Apresoline) 50 mg PO TID [facility] Last Admin: 11/27/18 09:31 Dose: 50 mg Iron Sucrose 200 mg/ Sodium (Chloride) 110 mls @ 110 mls/hr IVPB DAILY [facility] Stop: 11/28/18 09:01 Last Admin: 11/27/18 09:36 Dose: 110 mls/hr Isosorbide Mononitrate (Imdur) 60 mg PO DAILY [facility] Last Admin: 11/27/18 09:34 Dose: 60 mg Metoprolol Tartrate (Lopressor) 100 mg PO Q12 [facility] Last Admin: 11/27/18 09:34 Dose: 100 mg Morphine Sulfate (Morphine) 2 mg IVP Q4 PRN PRN Reason: Pain, moderate (4-7) Last Admin: 11/24/18 23:55 Dose: 2 mg Sodium Bicarbonate (Sodium Bicarbonate Tab) 650 mg PO Q6 [facility] Last Admin: 11/27/18 09:35 Dose: 650 mg - Labs Labs: 11/24/18 09:10 11/24/18 09:10 PT 11.9 Seconds (9.8-13.1) 11/19/18 14:10 INR 1.0 11/19/18 14:10 APTT 28.6 Seconds (25.6-37.1) 11/19/18 14:10 - Constitutional Appears: No Acute Distress - Head Exam Head Exam: ATRAUMATIC, NORMOCEPHALIC - Eye Exam Eye Exam: EOMI - ENT Exam ENT Exam: Mucous Membranes Moist - Neck Exam Neck Exam: Full ROM - Cardiovascular Exam Cardiovascular Exam: Diastolic murmur, RRR, +S1, +S2, Murmur - GI/Abdominal Exam GI & Abdominal Exam: Soft, Normal Bowel Sounds - Extremities Exam Extremities Exam: Full ROM. absent: Calf Tenderness, Pedal Edema, Tenderness - Neurological Exam Neurological Exam: Alert, Awake - Skin Skin Exam: Dry, Intact, Warm Assessment and Plan - Assessment and Plan (Free Text) Assessment: Assessment & Plan (1) Aortic stenosis Status: Chronic (2) Preop cardiovascular exam Assessment and Plan: Status: Acute (3) Bladder cancer Status: Acute (4) Hematochezia Status: Acute Priority: High (5) [id number] kidney injury Status: Acute Priority: High (6) Anemia Status: Acute Priority: High (7) HTN (hypertension) Status: Chronic Priority: Medium Plan: As per ACC/AHA guidelines he can proceed with planned surgery with low to intermediate risk for perioperative cardiac event due to hx of will need to maintain afterload reduction perioperative BB cont bb and vasotec cont asa add statins continue clonidine enalapril hydralazine asa vasotec Pt seen, examined, assessment and plan discussed with Dr Checo Lei PGY1, Internal Medicine Resident
[2018-11-27 11:47] LABS: BASO % 0.2 % (0.0-2.0); EOS # 0.3 K/uL (0.0-0.7); EOS % 4.2 % (0.0-4.0); HEMOGLOBIN 8.5 g/dL (12.0-18.0); LYMPH # 0.3 K/uL (1.0-4.3); LYMPH % 5.3 % (20.0-40.0); MEAN CELL VOLUME 95.3 fl (80.0-94.0); MEAN CORPUSCULAR HGB CONC 33.6 g/dL (33.0-37.0); MEAN PLATELET VOLUME 7.1 fl (7.2-11.7); MONO # 0.6 K/uL (0.0-0.8); MONO % 8.5 % (0.0-10.0); NEUT # 5.4 K/uL (1.8-7.0); NEUT % 81.8 % (50.0-75.0); PLATELET COUNT 181 K/uL (130-400); RBC 2.66 Mil/uL (4.40-5.90); RED CELL DISTRIBUTION WIDTH 18.6 % (11.5-14.5); WHITE BLOOD COUNT 6.6 K/uL (4.8-10.8)
[2018-11-27 12:14] LABS: ALB/GLOB RATIO 1.2 (1.0-2.1); ALBUMIN 2.7 g/dL (3.5-5.0); CALCIUM 8.7 mg/dL (8.4-10.2)
--- NOTE | 2018-11-27 12:56 | CP.PCM.PN ---
Subjective - Date & Time of Evaluation Date of Evaluation: 11/27/18 Time of Evaluation: 12:00 - Subjective Subjective: F/U Colitis, Hematochezia. N/C, no abdominal pain, BM no hematochezia Objective - Vital Signs/Intake and Output Vital Signs (last 24 hours): Temp Pulse Resp BP Pulse Ox 98 F 62 18 168/69 H 95 11/27/18 12:19 11/27/18 12:19 11/27/18 12:19 11/27/18 12:19 11/27/18 12:19 Intake and Output: 11/27/18 11/27/18 06:59 18:59 Output Total 850 Balance -850 - Medications Medications: Current Medications Aspirin (Ecotrin) 81 mg PO DAILY [facility] Last Admin: 11/21/18 09:32 Dose: 81 mg Clonidine HCl (Catapres) 0.1 mg PO BID [facility] Last Admin: 11/24/18 08:45 Dose: 0.1 mg Clonidine HCl (Catapres) 0.2 mg PO TID [facility] Last Admin: 11/27/18 09:32 Dose: 0.2 mg Emollient Ointment (Vaseline Oint) 1 pkt TOP BID PRN PRN Reason: Dry skin Enalapril Maleate (Vasotec) 10 mg PO BID [facility] Last Admin: 11/27/18 09:35 Dose: 10 mg Enalaprilat (Vasotec) 2.5 mg IV Q6 [facility] Last Admin: 11/24/18 16:41 Dose: Not Given Ferrous Sulfate (Feosol) 325 mg PO DAILY [facility] Last Admin: 11/27/18 09:33 Dose: 325 mg Home Med (Paricalcitol [Zemplar]) 1 mcg PO DAILY [facility] Hydralazine HCl (Apresoline) 50 mg PO TID [facility] Last Admin: 11/27/18 09:31 Dose: 50 mg Iron Sucrose 200 mg/ Sodium (Chloride) 110 mls @ 110 mls/hr IVPB DAILY [facility] Stop: 11/28/18 09:01 Last Admin: 11/27/18 09:36 Dose: 110 mls/hr Isosorbide Mononitrate (Imdur) 60 mg PO DAILY [facility] Last Admin: 11/27/18 09:34 Dose: 60 mg Metoprolol Tartrate (Lopressor) 100 mg PO Q12 [facility] Last Admin: 11/27/18 09:34 Dose: 100 mg Morphine Sulfate (Morphine) 2 mg IVP Q4 PRN PRN Reason: Pain, moderate (4-7) Last Admin: 11/24/18 23:55 Dose: 2 mg Sodium Bicarbonate (Sodium Bicarbonate Tab) 650 mg PO Q6 [facility] Last Admin: 11/27/18 09:35 Dose: 650 mg - Labs Labs: 11/27/18 11:42 11/27/18 11:42 PT 11.9 Seconds (9.8-13.1) 11/19/18 14:10 INR 1.0 11/19/18 14:10 APTT 28.6 Seconds (25.6-37.1) 11/19/18 14:10 - Constitutional Appears: No Acute Distress - Head Exam Head Exam: NORMAL INSPECTION - Eye Exam Eye Exam: PERRL - ENT Exam ENT Exam: Normal Exam - Neck Exam Neck Exam: Normal Inspection - Respiratory Exam Respiratory Exam: Decreased Breath Sounds (at bases) - Cardiovascular Exam Cardiovascular Exam: REGULAR RHYTHM, Murmur - GI/Abdominal Exam GI & Abdominal Exam: Soft, Normal Bowel Sounds - Extremities Exam Extremities Exam: Normal Inspection - Back Exam Back Exam: NORMAL INSPECTION - Neurological Exam Neurological Exam: Alert, Oriented x3 Additional comments: No focal motor/sensory deficit - Psychiatric Exam Psychiatric exam: Normal Affect, Normal Mood - Skin Skin Exam: Warm Assessment and Plan (1) Colitis Status: Acute (2) Bladder cancer Status: Acute (3) Hematochezia Status: Resolved (4) Anemia Status: Acute (5) Acute kidney injury 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: Chronic (6) Generalized weakness Status: Chronic (7) Congestive heart failure (CHF) Status: Chronic (8) Aortic stenosis Status: Chronic (9) COPD (chronic obstructive pulmonary disease) Status: Chronic (10) DMII (diabetes mellitus, type 2) Status: Chronic (11) Gastritis Status: Chronic (12) HTN (hypertension) Status: Chronic - Assessment and Plan (Free Text) Plan: f/u with Urologist and Field Servicer further management of Bladder CA, BP control, Creatinine up f/u with Renal
[2018-11-27 14:02] LABS: ANISOCYTOSIS SLIGHT; BANDS 1 % (0-2); EOSINOPHIL 1 % (0-7); HYPOCHROMIC SLIGHT; LYMPHOCYTE 5 % (20-50); MONOCYTE 6 % (0-10); MYELOCYTE 1 % (0-0); NEUTROPHIL 86 % (42-75); OVALOCYTES SLIGHT; PLATELET ESTIMATE NORMAL (NORMAL); SCHISTOCYTES SLIGHT; TEARDROP CELLS SLIGHT; TOTAL CELLS COUNTED 100
[2018-11-27 15:20] LABS: ALBUMIN 46.4 %; ALPHA-1 GLOBULIN 3.8 %
[2018-11-27] MEDS: Morphine 4 MG/ML VIAL IVP PRN ×2 (16:14→20:25)
--- NOTE | 2018-11-28 08:59 | CP.PCM.PN ---
Subjective - Date & Time of Evaluation Date of Evaluation: 11/27/18 Time of Evaluation: 14:00 - Subjective Subjective: no overnight events Objective - Vital Signs/Intake and Output Vital Signs (last 24 hours): Temp Pulse Resp BP Pulse Ox 98.3 F 74 18 208/77 H 92 L 11/28/18 08:13 11/28/18 08:13 11/28/18 08:13 11/28/18 08:13 11/28/18 08:13 - Medications Medications: Current Medications Amlodipine Besylate (Norvasc) 10 mg PO DAILY [facility] Aspirin (Ecotrin) 81 mg PO DAILY [facility] Last Admin: 11/21/18 09:32 Dose: 81 mg Clonidine HCl (Catapres) 0.1 mg PO BID [facility] Last Admin: 11/24/18 08:45 Dose: 0.1 mg Clonidine HCl (Catapres) 0.3 mg PO TID [facility] Last Admin: 11/28/18 08:10 Dose: 0.3 mg Emollient Ointment (Vaseline Oint) 1 pkt TOP BID PRN PRN Reason: Dry skin Enalapril Maleate (Vasotec) 10 mg PO BID [facility] Last Admin: 11/28/18 08:12 Dose: 10 mg Ferrous Sulfate (Feosol) 325 mg PO DAILY [facility] Last Admin: 11/28/18 08:17 Dose: 325 mg Home Med (Paricalcitol [Zemplar]) 1 mcg PO DAILY [facility] Hydralazine HCl (Apresoline) 100 mg PO TID [facility] Iron Sucrose 200 mg/ Sodium (Chloride) 110 mls @ 110 mls/hr IVPB DAILY [facility] Stop: 11/28/18 09:01 Last Admin: 11/28/18 08:18 Dose: 110 mls/hr Isosorbide Mononitrate (Imdur) 60 mg PO DAILY [facility] Last Admin: 11/28/18 08:12 Dose: 60 mg Metoprolol Tartrate (Lopressor) 100 mg PO Q12 [facility] Last Admin: 11/28/18 08:13 Dose: 100 mg Morphine Sulfate (Morphine) 2 mg IVP Q4 PRN PRN Reason: Pain, moderate (4-7) Last Admin: 11/27/18 20:25 Dose: 2 mg Nitroglycerin (Nitro-Bid 2% Oint) 1 ea TOP Q6 [facility] Sodium Bicarbonate (Sodium Bicarbonate Tab) 650 mg PO Q6 [facility] Last Admin: 11/28/18 04:12 Dose: Not Given - Labs Labs: 11/27/18 11:42 11/27/18 11:42 PT 11.9 Seconds (9.8-13.1) 11/19/18 14:10 INR 1.0 11/19/18 14:10 APTT 28.6 Seconds (25.6-37.1) 11/19/18 14:10 - Neck Exam Neck Exam: Normal Inspection - Respiratory Exam Respiratory Exam: Clear to Ausculation Bilateral, NORMAL BREATHING PATTERN - Cardiovascular Exam Cardiovascular Exam: REGULAR RHYTHM - GI/Abdominal Exam GI & Abdominal Exam: Soft, Normal Bowel Sounds Assessment and Plan - Assessment and Plan (Free Text) Assessment: 83 yo male with colitis doing well outpatient colonoscopy dc planning
--- NOTE | 2018-11-28 09:26 | CP.PCM.PN ---
Subjective - Date & Time of Evaluation Date of Evaluation: 11/28/18 Time of Evaluation: 09:26 - Subjective Subjective: Patient awake and conscious Patient feeling good Vital signs stable Objective - Vital Signs/Intake and Output Vital Signs (last 24 hours): Temp Pulse Resp BP Pulse Ox 98.3 F 74 18 208/77 H 92 L 11/28/18 08:13 11/28/18 08:13 11/28/18 08:13 11/28/18 08:13 11/28/18 08:13 - Medications Medications: Current Medications Amlodipine Besylate (Norvasc) 10 mg PO DAILY [facility] Aspirin (Ecotrin) 81 mg PO DAILY [facility] Last Admin: 11/21/18 09:32 Dose: 81 mg Clonidine HCl (Catapres) 0.1 mg PO BID [facility] Last Admin: 11/24/18 08:45 Dose: 0.1 mg Clonidine HCl (Catapres) 0.3 mg PO TID [facility] Last Admin: 11/28/18 08:10 Dose: 0.3 mg Emollient Ointment (Vaseline Oint) 1 pkt TOP BID PRN PRN Reason: Dry skin Enalapril Maleate (Vasotec) 10 mg PO BID [facility] Last Admin: 11/28/18 08:12 Dose: 10 mg Ferrous Sulfate (Feosol) 325 mg PO DAILY [facility] Last Admin: 11/28/18 08:17 Dose: 325 mg Home Med (Paricalcitol [Zemplar]) 1 mcg PO DAILY [facility] Hydralazine HCl (Apresoline) 100 mg PO TID [facility] Isosorbide Mononitrate (Imdur) 60 mg PO DAILY [facility] Last Admin: 11/28/18 08:12 Dose: 60 mg Metoprolol Tartrate (Lopressor) 100 mg PO Q12 [facility] Last Admin: 11/28/18 08:13 Dose: 100 mg Morphine Sulfate (Morphine) 2 mg IVP Q4 PRN PRN Reason: Pain, moderate (4-7) Last Admin: 11/27/18 20:25 Dose: 2 mg Nitroglycerin (Nitro-Bid 2% Oint) 1 ea TOP Q6 [facility] Sodium Bicarbonate (Sodium Bicarbonate Tab) 650 mg PO Q6 [facility] Last Admin: 11/28/18 04:12 Dose: Not Given - Labs Labs: 11/27/18 11:42 11/27/18 11:42 PT 11.9 Seconds (9.8-13.1) 11/19/18 14:10 INR 1.0 11/19/18 14:10 APTT 28.6 Seconds (25.6-37.1) 11/19/18 14:10 - Constitutional Appears: No Acute Distress - Eye Exam Eye Exam: Conjunctival injection - ENT Exam ENT Exam: absent: Mucous Membranes Moist - Neck Exam Neck Exam: absent: Lymphadenopathy - Respiratory Exam Respiratory Exam: NORMAL BREATHING PATTERN - Cardiovascular Exam Cardiovascular Exam: absent: Gallop, JVD - GI/Abdominal Exam GI & Abdominal Exam: Soft, Normal Bowel Sounds - Extremities Exam Extremities Exam: absent: Calf Tenderness - Back Exam Back Exam: absent: CVA tenderness (L) - Neurological Exam Neurological Exam: Alert - Psychiatric Exam Psychiatric exam: Normal Affect - Skin Skin Exam: absent: Cyanosis Assessment and Plan (1) Acute kidney injury superimposed on CKD Assessment & Plan: Patient admitted with active GI bleeding with severe anemia Patient has a chronic kidney disease stage IV with super imposed acute kidney injury from the hemodynamic changes in the active GI bleeding. 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
[2018-11-28] MEDS ORDERED: Nitroglycerin 2% Ointment Foilpak UD TOP SCH (10:00)
--- NOTE | 2018-11-28 12:08 | CP.PCM.PN ---
Objective - Vital Signs/Intake and Output Vital Signs (last 24 hours): Temp Pulse Resp BP Pulse Ox 98.3 F 69 18 144/63 92 L 11/28/18 08:13 11/28/18 10:22 11/28/18 08:13 11/28/18 10:22 11/28/18 08:13 - Medications Medications: Current Medications Amlodipine Besylate (Norvasc) 10 mg PO DAILY [facility] Last Admin: 11/28/18 10:22 Dose: 10 mg Aspirin (Ecotrin) 81 mg PO DAILY [facility] Last Admin: 11/21/18 09:32 Dose: 81 mg Clonidine HCl (Catapres) 0.1 mg PO BID [facility] Last Admin: 11/24/18 08:45 Dose: 0.1 mg Clonidine HCl (Catapres) 0.3 mg PO TID [facility] Last Admin: 11/28/18 08:10 Dose: 0.3 mg Emollient Ointment (Vaseline Oint) 1 pkt TOP BID PRN PRN Reason: Dry skin Enalapril Maleate (Vasotec) 10 mg PO BID [facility] Last Admin: 11/28/18 08:12 Dose: 10 mg Ferrous Sulfate (Feosol) 325 mg PO DAILY [facility] Last Admin: 11/28/18 08:17 Dose: 325 mg Home Med (Paricalcitol [Zemplar]) 1 mcg PO DAILY [facility] Hydralazine HCl (Apresoline) 100 mg PO TID [facility] Last Admin: 11/28/18 10:20 Dose: 100 mg Isosorbide Mononitrate (Imdur) 60 mg PO DAILY [facility] Last Admin: 11/28/18 08:12 Dose: 60 mg Metoprolol Tartrate (Lopressor) 100 mg PO Q12 [facility] Last Admin: 11/28/18 08:13 Dose: 100 mg Morphine Sulfate (Morphine) 2 mg IVP Q4 PRN PRN Reason: Pain, moderate (4-7) Last Admin: 11/27/18 20:25 Dose: 2 mg Nitroglycerin (Nitro-Bid 2% Oint) 1 ea TOP Q6 [facility] Last Admin: 11/28/18 10:22 Dose: 1 ea Sodium Bicarbonate (Sodium Bicarbonate Tab) 650 mg PO Q6 [facility] Last Admin: 11/28/18 10:21 Dose: 650 mg - Labs Labs: 11/27/18 11:42 11/27/18 11:42 PT 11.9 Seconds (9.8-13.1) 11/19/18 14:10 INR 1.0 11/19/18 14:10 APTT 28.6 Seconds (25.6-37.1) 11/19/18 14:10 Assessment and Plan (1) Colitis Status: Acute (2) Bladder cancer Status: Acute (3) Hematochezia Status: Resolved (4) Anemia Status: Acute (5) Acute kidney injury 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: Chronic (6) Generalized weakness Status: Chronic (7) Congestive heart failure (CHF) Status: Chronic (8) Aortic stenosis Status: Chronic (9) COPD (chronic obstructive pulmonary disease) Status: Chronic (10) DMII (diabetes mellitus, type 2) Status: Chronic (11) Gastritis Status: Chronic (12) HTN (hypertension) Status: Chronic
[2018-11-28 12:26] VITALS: BP 167/67; PULSE 70
[2018-11-28 12:29] VITALS: TEMP 98.1; O2SAT 94
--- NOTE | 2018-11-28 15:17 | RAD ---
Date of service: 11/24/2018 PROCEDURE: Intraoperative Fluoroscopy. HISTORY: CYSTOSCOPY FINDINGS: Fluoroscopic assistance was provided for retrograde. Please refer to the operative report from [facility]. Total fluoroscopic time (continuous mode) utilized during the procedure 19.9 seconds.
--- NOTE | 2018-11-28 18:19 | CP.PCM.DIS ---
Provider - Provider Date of Admission: 11/19/18 15:59 Attending physician: Logan Stockton MD Consults: 11/19/18 21:52 Nephrology Consult Routine Comment: Consulting Provider: Stephon Nair Consulting Physician: Stephon Nair Reason for Consult: As per Primary Physician 11/20/18 12:24 Gastroenterology Consult Routine Comment: Consulting Provider: Matthew Coker Consulting Physician: Matthew Coker Reason for Consult: anemia, rectal bleeding 11/21/18 13:32 Urology Consult Routine Comment: Consulting Provider: Shaji Lord Consulting Physician: Shaji Lord Reason for Consult: hematoma ureteropelvic junction, R hydronephrosis 11/23/18 18:29 Physician Consult Routine Comment: Consulting Provider: Moose Kessler Consulting Physician: Moose Kessler Reason for Consult: Cardiac Clearance for Procedure Diagnosis - Discharge Diagnosis (1) Colitis Status: Acute (2) Bladder cancer Status: Acute (3) Hematochezia Status: Resolved Priority: High (4) Anemia Status: Acute Priority: High (5) Acute kidney injury 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: Chronic Priority: High (6) Generalized weakness Status: Chronic Priority: High (7) Congestive heart failure (CHF) Status: Chronic (8) Aortic stenosis Status: Chronic (9) COPD (chronic obstructive pulmonary disease) Status: Chronic Priority: Medium (10) DMII (diabetes mellitus, type 2) Status: Chronic Priority: Medium (11) Gastritis Status: Chronic Priority: Medium (12) HTN (hypertension) Status: Chronic Priority: Medium Hospital Course - Lab Results Lab Results: Micro Results 11/19/18 17:05 Urine,Clean Catch Urine Culture - Final No Growth (<1,000 CFU/ML) Most Recent Lab Values WBC 6.6 K/uL (4.8-10.8) 11/27/18 11:42 RBC 2.66 Mil/uL (4.40-5.90) L 11/27/18 11:42 Hgb 8.5 g/dL (12.0-18.0) L 11/27/18 11:42 Hct 25.3 % (35.0-51.0) L 11/27/18 11:42 MCV 95.3 fl (80.0-94.0) H D 11/27/18 11:42 MCH 32.0 pg (27.0-31.0) H 11/27/18 11:42 MCHC 33.6 g/dL (33.0-37.0) 11/27/18 11:42 RDW 18.6 % (11.5-14.5) H 11/27/18 11:42 Plt Count 181 K/uL (130-400) 11/27/18 11:42 MPV 7.1 fl (7.2-11.7) L 11/27/18 11:42 Neut % (Auto) 81.8 % (50.0-75.0) H 11/27/18 11:42 Lymph % (Auto) 5.3 % (20.0-40.0) L 11/27/18 11:42 Nuckolls % (Auto) 8.5 % (0.0-10.0) 11/27/18 11:42 Eos % (Auto) 4.2 % (0.0-4.0) H 11/27/18 11:42 Baso % (Auto) 0.2 % (0.0-2.0) 11/27/18 11:42 Neut # (Auto) 5.4 K/uL (1.8-7.0) 11/27/18 11:42 Lymph # (Auto) 0.3 K/uL (1.0-4.3) L 11/27/18 11:42 Nuckolls # (Auto) 0.6 K/uL (0.0-0.8) 11/27/18 11:42 Eos # (Auto) 0.3 K/uL (0.0-0.7) 11/27/18 11:42 Baso # (Auto) 0.0 K/uL (0.0-0.2) 11/27/18 11:42 Total Counted Cancelled 11/27/18 11:42 Neutrophils % (Manual) 86 % (42-75) H 11/27/18 11:42 Band Neutrophils % 1 % (0-2) 11/27/18 11:42 Lymphocytes % (Manual) 5 % (20-50) L 11/27/18 11:42 Reactive Lymphs % Cancelled 11/27/18 11:42 Monocytes % (Manual) 6 % (0-10) 11/27/18 11:42 Eosinophils % (Manual) 1 % (0-7) 11/27/18 11:42 Basophils % (Manual) Cancelled 11/27/18 11:42 Metamyelocytes % Cancelled 11/27/18 11:42 Myelocytes % 1 % (0-0) H 11/27/18 11:42 Promyelocytes % Cancelled 11/27/18 11:42 Blast Cells % Cancelled 11/27/18 11:42 Plasma Cell % (Manual) Cancelled 11/27/18 11:42 Nucleated RBC % Cancelled 11/27/18 11:42 Hypersegmented Polys Cancelled 11/27/18 11:42 Smudge Cells Cancelled 11/27/18 11:42 Toxic Granulation Cancelled 11/27/18 11:42 Dohle Bodies Cancelled 11/27/18 11:42 Serena Rods Cancelled 11/27/18 11:42 Platelet Estimate Normal (NORMAL) 11/27/18 11:42 Plt Clumps, EDTA Cancelled 11/27/18 11:42 Large Platelets Cancelled 11/27/18 11:42 Giant Platelets Cancelled 11/27/18 11:42 RBC Morphology Cancelled 11/27/18 11:42 Polychromasia Cancelled 11/27/18 11:42 Hypochromasia (manual) Slight 11/27/18 11:42 Poikilocytosis (manual Cancelled 11/27/18 11:42 Basophilic Stippling Cancelled 11/27/18 11:42 Anisocytosis (manual) Slight 11/27/18 11:42 Microcytosis (manual) Cancelled 11/27/18 11:42 Macrocytosis (manual) Slight 11/19/18 14:10 Spherocytes Cancelled 11/27/18 11:42 Sickle Cells Cancelled 11/27/18 11:42 Target Cells Cancelled 11/27/18 11:42 Tear Drop Cells Slight 11/27/18 11:42 Ovalocytes Slight 11/27/18 11:42 Stomatocytes Cancelled 11/27/18 11:42 Helmet Cells Cancelled 11/27/18 11:42 [place] Bodies Cancelled 11/27/18 11:42 [place] Cells Cancelled 11/27/18 11:42 Acanthocytes (Spur) Cancelled 11/27/18 11:42 Rouleaux Cancelled 11/27/18 11:42 Schistocytes Slight 11/27/18 11:42 Retic Count 3.9 % (0.5-1.5) H 11/20/18 11:26 PT 11.9 Seconds (9.8-13.1) 11/19/18 14:10 INR 1.0 11/19/18 14:10 APTT 28.6 Seconds (25.6-37.1) 11/19/18 14:10 Sodium 135 mmol/l (132-148) 11/27/18 11:42 Potassium 4.3 MMOL/L (3.6-5.0) 11/27/18 11:42 Chloride 103 mmol/L (98-107) 11/27/18 11:42 Carbon Dioxide 24 mmol/L (22-30) 11/27/18 11:42 Anion Gap 12 (10-20) 11/27/18 11:42 BUN 30 mg/dl (9-20) H 11/27/18 11:42 Creatinine 3.0 mg/dl (0.8-1.5) H 11/27/18 11:42 Est GFR ( Amer) 24 11/27/18 11:42 Est GFR (Non-Af Amer) 20 11/27/18 11:42 POC Glucose (mg/dL) 107 mg/dL (65-110) 11/20/18 22:36 Random Glucose 196 mg/dL (75-110) H 11/27/18 11:42 Calcium 8.7 mg/dL (8.4-10.2) 11/27/18 11:42 Phosphorus 2.6 mg/dl (2.5-4.5) 11/27/18 11:54 Magnesium 1.8 MG/DL (1.6-2.3) 11/27/18 11:54 Iron 167 ug/dL (49-181) 11/20/18 12:30 TIBC 286 ug/dL (250-450) 11/20/18 12:30 % Saturation 59 % (20-55) H 11/20/18 12:30 Ferritin 50.8 ng/Ml (17.9-464) 11/20/18 12:30 Total Bilirubin 0.2 mg/dl (0.2-1.3) 11/27/18 11:42 AST 19 U/L (17-59) 11/27/18 11:42 ALT 27 U/L (21-72) 11/27/18 11:42 Alkaline Phosphatase 62 U/L (38-126) 11/27/18 11:42 Total Protein 5.0 G/DL (6.3-8.2) L 11/27/18 11:42 Albumin 2.7 g/dL (3.5-5.0) L 11/27/18 11:42 Globulin 2.3 gm/dL (2.2-3.9) 11/27/18 11:42 Albumin/Globulin Ratio 1.2 (1.0-2.1) 11/27/18 11:42 Mqkvh-2-Nqcaxmduy 3.8 % 11/22/18 00:01 Nxtzf-5-Sjgfndxqo 13.7 % 11/22/18 00:01 Beta Globulins 16.3 % 11/22/18 00:01 Gamma Globulins 19.8 % 11/22/18 00:01 Vitamin B12 831 pg/mL (239-931) 11/20/18 12:30 RBC Folate 1090 ng/mL RBC (>280) 11/20/18 11:26 PTH Intact Whole Molec 61 pg/mL (14-64) 11/20/18 11:26 Urine Color Yellow (YELLOW) 11/19/18 15:15 Urine Clarity Slighty-cloudy (Clear) 11/19/18 15:15 Urine pH 6.0 (5.0-8.0) 11/19/18 15:15 Ur Specific [place] 1.014 (1.003-1.030) 11/19/18 15:15 Urine Protein 30 mg/dL (NEGATIVE) 11/19/18 15:15 Urine Glucose (UA) Neg mg/dL (NEGATIVE) 11/19/18 15:15 Urine Ketones Negative mg/dL (NEGATIVE) 11/19/18 15:15 Urine Blood Moderate (NEGATIVE) 11/19/18 15:15 Urine Nitrate Negative (NEGATIVE) 11/19/18 15:15 Urine Bilirubin Negative (NEGATIVE) 11/19/18 15:15 Urine Urobilinogen 0.2-1.0 mg/dL (0.2-1.0) 11/19/18 15:15 Ur Leukocyte Esterase Neg Luna/uL (Negative) 11/19/18 15:15 Urine RBC (Auto) 11 /hpf (0-3) H 11/19/18 15:15 Urine Microscopic WBC 5 /hpf (0-5) 11/19/18 15:15 Ur Squamous Epith Cells < 1 /hpf (0-5) 11/19/18 15:15 Urine Bacteria Few (<OCC) H 11/19/18 15:15 Ur Creatinine 24 Hour 0.39 g/24 h (0.50-2.15) L 11/22/18 00:01 Ur Total Protein 24 Hr 265 mg/24 h (<150) H 11/22/18 00:01 Protein/Creat Ratio 24h 679 mg/g creat (< OR = 114) H 11/22/18 00:01 Urine Albumin (PEP) 46.4 % 11/22/18 00:01 Ur Protein Fractions See note 11/22/18 00:01 Stool Occult Blood Positive (NEGATIVE) H 11/21/18 09:08 Blood Type A POSITIVE 11/19/18 14:10 Antibody Screen Negative 11/19/18 14:10 Crossmatch See Detail 11/19/18 14:10 BBK History Checked Patient has bt 11/19/18 14:10 Discharge Exam - Head Exam Head Exam: NORMAL INSPECTION Discharge Plan - Discharge Medications Prescriptions: hydrALAZINE [Apresoline] 100 mg PO TID #60 tab cloNIDine [Catapres] 0.1 mg PO BID #60 tab Metoprolol Tartrate [Lopressor] 100 mg PO Q12 #60 tab amLODIPine [Norvasc] 10 mg PO DAILY #30 tab Sodium Bicarbonate Tab 650 mg PO BID #10 tab - Follow Up Plan Condition: STABLE Disposition: HOME/ ROUTINE Instructions: Urinary Tract Infection, Adult (DC), Anemia of Chronic Disease (DC), Bloody Stools, Adult (DC) Additional Instructions: follow up with on 11/29/18. Referrals: Shaji Lord MD [Medical Doctor] - Logan Stockton MD [Family Provider] -
--- NOTE | 2018-11-28 20:48 | CP.PCM.PN ---
Subjective - Date & Time of Evaluation Date of Evaluation: 11/28/18 Time of Evaluation: 20:48 - Subjective Subjective: Pt seen and examined at bedside. Pt has no new complaints. Objective - Vital Signs/Intake and Output Vital Signs (last 24 hours): Temp Pulse Resp BP Pulse Ox 98.1 F 70 18 167/67 H 94 L 11/28/18 12:31 11/28/18 12:31 11/28/18 12:31 11/28/18 12:31 11/28/18 12:31 - Labs Labs: 11/27/18 11:42 11/27/18 11:42 PT 11.9 Seconds (9.8-13.1) 11/19/18 14:10 INR 1.0 11/19/18 14:10 APTT 28.6 Seconds (25.6-37.1) 11/19/18 14:10 - Constitutional Appears: No Acute Distress - Head Exam Head Exam: ATRAUMATIC, NORMOCEPHALIC - Eye Exam Eye Exam: EOMI - ENT Exam ENT Exam: Mucous Membranes Moist - Neck Exam Neck Exam: Full ROM - Respiratory Exam Respiratory Exam: Clear to Ausculation Bilateral, NORMAL BREATHING PATTERN. absent: Accessory Muscle Use - Cardiovascular Exam Cardiovascular Exam: RRR, +S1, +S2 - GI/Abdominal Exam GI & Abdominal Exam: Soft, Normal Bowel Sounds - Extremities Exam Extremities Exam: Full ROM. absent: Pedal Edema - Neurological Exam Neurological Exam: Alert, Oriented x3 - Psychiatric Exam Psychiatric exam: Normal Affect, Normal Mood - Skin Skin Exam: Dry, Normal Color, Warm Assessment and Plan - Assessment and Plan (Free Text) Assessment: (1) Aortic stenosis Status: Chronic (2) Preop cardiovascular exam Assessment and Plan: Status: Acute (3) Bladder cancer Status: Acute (4) Hematochezia Status: Acute Priority: High (5) [id number] kidney injury Status: Acute Priority: High (6) Anemia Status: Acute Priority: High (7) HTN (hypertension) Status: Chronic Priority: Medium Plan: As per ACC/AHA guidelines he can proceed with planned surgery with low to intermediate risk for perioperative cardiac event due to hx of will need to maintain afterload reduction continue clonidine enalapril hydralazine asa vasotec statin Pt seen, examined, assessment and plan discussed with Dr Checo Lei PGY1, Internal Medicine Resident
--- NOTE | 2018-11-29 12:21 | CP.PCM.PN ---
Subjective - Date & Time of Evaluation Date of Evaluation: 11/28/18 Time of Evaluation: 09:00 - Subjective Subjective: no overnight events Objective - Vital Signs/Intake and Output Vital Signs (last 24 hours): Temp Pulse Resp BP Pulse Ox 98.1 F 70 18 167/67 H 94 L 11/28/18 12:31 11/28/18 12:31 11/28/18 12:31 11/28/18 12:31 11/28/18 12:31 - Labs Labs: 11/27/18 11:42 11/27/18 11:42 PT 11.9 Seconds (9.8-13.1) 11/19/18 14:10 INR 1.0 11/19/18 14:10 APTT 28.6 Seconds (25.6-37.1) 11/19/18 14:10 - Head Exam Head Exam: NORMOCEPHALIC - Neck Exam Neck Exam: Normal Inspection - Respiratory Exam Respiratory Exam: Clear to Ausculation Bilateral, NORMAL BREATHING PATTERN - Cardiovascular Exam Cardiovascular Exam: REGULAR RHYTHM - GI/Abdominal Exam GI & Abdominal Exam: Soft, Normal Bowel Sounds Assessment and Plan - Assessment and Plan (Free Text) Assessment: 83 yo male with colitis doing well dc planning outpatient colonoscopy
--- NOTE | 2018-12-05 14:29 | PQF ---
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 REVIEWER QUERY TEXT: Documentation Clarification Your help is requested in clarifying the following clinical documentation, if you can please further specify in the medical record and discharge summary if you agree with carcinoma of the ureter and pel vis. 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
--- NOTE | 2018-12-05 14:29 | PQF ---
PROVIDER RESPONSE TEXT: Anemia iron deficiency likely from chronic GI blood loss, Hematuria from the bladder tumor and anemia of CKD. REVIEWER QUERY TEXT: Anemia Type Anemia is documented in the Medical Record. Please specify the cause (includes suspected or probable cause) Such as: -- Due to acute blood loss -- Due to chronic blood loss -- Due to iron deficiency -- Due to postoperative blood loss -- Due to chronic disease -- Other, please specify The patient's Clinical Indicators include: XX Query created by: Karla Lemus on 11/29/2018 12:32 PM Electronically signed by: Logan Stockton MD 12/05/2018 2:26 PM
== END 2018-11-28 15:25 | disposition home or self-care (01) | DRG 988 ==
LOC: H.ER 13:38 → H.ERHOLD 15:59 → H.TEL 19:24
PROVIDERS: ADMIT Internal Medicine Pulmonary Disease; ATTEND Internal Medicine Pulmonary Disease
PROC: 30233N1 Transfusion of Nonautologous Red Blood Cells into Peripheral Vein, Percutaneous Approach (ICD-10-PCS; 2018-11-19)
PROC: 3E02340 Introduction of Influenza Vaccine into Muscle, Percutaneous Approach (ICD-10-PCS; 2018-11-20)
PROC: BT1DZZZ Fluoroscopy of Right Kidney, Ureter and Bladder (ICD-10-PCS; 2018-11-24)
PROC: 0TC68ZZ Extirpation of Matter from Right Ureter, Via Natural or Artificial Opening Endoscopic (ICD-10-PCS; principal; 2018-11-24 12:15)
DX: K62.5 Hemorrhage of anus and rectum (principal); C66.1 Malignant neoplasm of right ureter; I13.0 Hypertensive heart and chronic kidney disease with heart failure and stage 1 through stage 4 chronic kidney disease, or unspecified chronic kidney disease; I50.32 Chronic diastolic (congestive) heart failure; N18.4 Chronic kidney disease, stage 4 (severe); N17.9 Acute kidney failure, unspecified; E87.2 Acidosis; N13.2 Hydronephrosis with renal and ureteral calculous obstruction; C65.1 Malignant neoplasm of right renal pelvis; K52.9 Noninfective gastroenteritis and colitis, unspecified; Z23 Encounter for immunization; K29.50 Unspecified chronic gastritis without bleeding; Z79.82 Long term (current) use of aspirin; E11.22 Type 2 diabetes mellitus with diabetic chronic kidney disease; Z87.891 Personal history of nicotine dependence; I35.0 Nonrheumatic aortic (valve) stenosis; I25.2 Old myocardial infarction; D50.0 Iron deficiency anemia secondary to blood loss (chronic); D63.1 Anemia in chronic kidney disease; R31.29 Other microscopic hematuria; K57.30 Diverticulosis of large intestine without perforation or abscess without bleeding; K80.20 Calculus of gallbladder without cholecystitis without obstruction; J44.9 Chronic obstructive pulmonary disease, unspecified; N32.89 Other specified disorders of bladder; N40.0 Benign prostatic hyperplasia without lower urinary tract symptoms; C67.9 Malignant neoplasm of bladder, unspecified

== ENCOUNTER 2019-03-07 09:51 | Inpatient (IN) | payer MEDICARE ==
[2019-03-07 09:54] VITALS: BMI 25.8
[2019-03-07] MEDS ORDERED: Sodium Chloride 0.9% 1,000 ML IV STA (10:46)
[2019-03-07 11:00] LABS: BASO % 0.3 % (0.0-2.0); EOS # 0.2 K/uL (0.0-0.7); EOS % 2.4 % (0.0-4.0); HEMOGLOBIN 7.9 g/dL (12.0-18.0); LYMPH # 0.4 K/uL (1.0-4.3); LYMPH % 5.4 % (20.0-40.0); MEAN CORPUSCULAR HGB CONC 33.4 g/dL (33.0-37.0); MEAN PLATELET VOLUME 7.6 fl (7.2-11.7); MONO # 0.7 K/uL (0.0-0.8); MONO % 8.4 % (0.0-10.0); NEUT # 6.6 K/uL (1.8-7.0); NEUT % 83.5 % (50.0-75.0); NRBC % 0.1 % (0.0-0.0); PLATELET COUNT 189 K/uL (130-400); RBC 2.47 Mil/uL (4.40-5.90); RED CELL DISTRIBUTION WIDTH 15.2 % (11.5-14.5); WHITE BLOOD COUNT 7.9 K/uL (4.8-10.8)
[2019-03-07 11:09] LABS: ALB/GLOB RATIO 1.3 (1.0-2.1); ALBUMIN 3.6 g/dL (3.5-5.0); CALCIUM 8.7 mg/dL (8.4-10.2)
[2019-03-07 11:20] LABS: TROPONIN I 0.022 ng/mL (0.00-0.120)
[2019-03-07 11:33] LABS: INR 1.1; PROTHROMBIN TIME 12.1 Seconds (9.8-13.1); URINE BACTERIA OCC (<OCC); URINE BILIRUBIN NEGATIVE (NEGATIVE); URINE BLOOD MODERATE (NEGATIVE); URINE GLUCOSE (UA) 150 mg/dL (NEGATIVE); URINE LEUKOCYTE ESTERASE NEG Leu/uL (Negative); URINE PROTEIN 100 mg/dL (NEGATIVE); URINE UROBILINOGEN 0.2-1.0 mg/dL (0.2-1.0)
[2019-03-07 11:35] LABS: EOSINOPHIL 5 % (0-7); LYMPHOCYTE 8 % (20-50); MONOCYTE 10 % (0-10); NEUTROPHIL 77 % (42-75); PLATELET ESTIMATE NORMAL (NORMAL); TOTAL CELLS COUNTED 100
[2019-03-07 11:36] LABS: ANISOCYTOSIS SLIGHT; LARGE PLATELETS PRESENT; OVALOCYTES SLIGHT; PARTIAL THROMBOPLASTIN TIME 29.4 Seconds (25.6-37.1)
--- NOTE | 2019-03-07 13:13 | ED PDOC ---
HPI: Chest Pain Time Seen by Provider: 03/07/19 10:05 Chief Complaint (Nursing): Chest Pain Chief Complaint (Provider): Chest Pain History Per: Patient History/Exam Limitations: no limitations Onset/Duration Of Symptoms: Days (x 1) Current Symptoms Are (Timing): Still Present Quality: "Pain" Associated Symptoms: Dyspnea (mild), Other (hematuria) Additional Complaint(s): 84 year old male with a history of CHF, HTN, aortic stenosis and urogenital malignancy s/p biopsy at [place] last week presents to the ED with chest pain and gross hematuria. Chest pain began this morning and is associated with generalized weakness and mild dyspnea. Hematuria has continued for 5-6 days. Per his son, the patient developed chest pain in the past and his blood levels dropped. PMD: Dr. Zeeshan Ohara Past Medical History Reviewed: Historical Data, Nursing Documentation, Vital Signs Vital Signs: Last Vital Signs Temp 98.4 F 03/07/19 09:54 Pulse 73 03/07/19 09:54 Resp 17 03/07/19 09:54 BP 148/68 03/07/19 09:54 Pulse Ox 99 03/07/19 09:54 Primary Care Provider: Zeeshan Ohara - Medical History PMH: Anemia, CHF (acute on chronic), COPD, Diabetes (pre), Gastritis, HTN, Kidney Stones, Pancreatitis, Pneumonia, Chronic Kidney Disease - Surgical History Surgical History: Carotid Endarterectomy, Hernia Repair - Family History Family History: States: Unknown Family Hx - Home Medications Home Medications: Ambulatory Orders Medication Instructions Recorded Dexlansoprazole [Dexilant] 60 mg PO DAILY 09/06/18 Metoprolol Tartrate [Lopressor] 100 mg PO Q12 #60 tab 11/28/18 Albuterol Sulfate [Ventolin Hfa] 2 puff IH Q6 PRN 03/07/19 Ciprofloxacin [Cipro] 500 mg PO Q12 03/07/19 Fluticasone/Salmeterol [Advair 1 puff IH Q12 03/07/19 250-50 Diskus] Sitagliptin Phos/Metformin HCl 1 tab PO DAILY 03/07/19 [Janumet 50-500 mg Tablet] cloNIDine [Catapres] 0.1 mg PO Q12 03/07/19 hydrALAZINE [Apresoline] 50 mg PO Q8 03/07/19 - Allergies Allergies/Adverse Reactions: Allergies Allergy/AdvReac Type Severity Reaction Status Date / Time No Known Allergies Allergy Verified 03/07/19 09:58 Review of Systems ROS Statement: Except As Marked, All Systems Reviewed And Found Negative Constitutional: Positive for: Weakness Cardiovascular: Positive for: Chest Pain Respiratory: Positive for: Shortness of Breath (mild) Genitourinary Male: Positive for: Hematuria Physical Exam - Reviewed Nursing Documentation Reviewed: Yes Vital Signs Reviewed: Yes - Physical Exam Appears: Positive for: Non-toxic, No Acute Distress Head Exam: Positive for: ATRAUMATIC, NORMAL INSPECTION, NORMOCEPHALIC Skin: Positive for: Normal Color, Warm, Dry Eye Exam: Positive for: EOMI, Normal appearance, PERRL Neck: Positive for: Normal, Painless ROM, Supple Cardiovascular/Chest: Positive for: Regular Rate, Rhythm. Negative for: Murmur Respiratory: Positive for: Normal Breath Sounds. Negative for: Respiratory Distress Gastrointestinal/Abdominal: Positive for: Normal Exam, Soft, Other (gross hematuria with no clots in urinal). Negative for: Tenderness Back: Positive for: Normal Inspection. Negative for: L CVA Tenderness, R CVA Tenderness Extremity: Positive for: Normal ROM. Negative for: Deformity Neurological/Psych: Positive for: Awake, Alert, Normal Tone, Oriented (x 3). Negative for: Motor/Sensory Deficits - Laboratory Results Result Diagrams: 03/07/19 10:38 03/07/19 10:38 Lab Results: PT 12.1 Seconds (9.8-13.1) 03/07/19 10:38 INR 1.1 03/07/19 10:38 APTT 29.4 Seconds (25.6-37.1) 03/07/19 10:38 Troponin I 0.0220 ng/mL (0.00-0.120) 03/07/19 10:38 Total Bilirubin 0.3 mg/dl (0.2-1.3) 03/07/19 10:38 AST 24 U/L (17-59) 03/07/19 10:38 ALT 30 U/L (21-72) 03/07/19 10:38 Alkaline Phosphatase 86 U/L (38-126) 03/07/19 10:38 Total Protein 6.4 G/DL (6.3-8.2) 03/07/19 10:38 Albumin 3.6 g/dL (3.5-5.0) 03/07/19 10:38 Globulin 2.8 gm/dL (2.2-3.9) 03/07/19 10:38 Albumin/Globulin Ratio 1.3 (1.0-2.1) 03/07/19 10:38 Urine Color agustin (YELLOW) 03/07/19 10:38 Urine Clarity turbid (Clear) 03/07/19 10:38 Urine pH 6.0 (5.0-8.0) 03/07/19 10:38 Ur Specific [place] 1.013 (1.003-1.030) 03/07/19 10:38 Urine Protein 100 mg/dL (NEGATIVE) 03/07/19 10:38 Urine Glucose (UA) 150 mg/dL (NEGATIVE) 03/07/19 10:38 Urine Ketones Negative mg/dL (NEGATIVE) 03/07/19 10:38 Urine Blood Moderate (NEGATIVE) 03/07/19 10:38 Urine Nitrate Negative (NEGATIVE) 03/07/19 10:38 Urine Bilirubin Negative (NEGATIVE) 03/07/19 10:38 Urine Urobilinogen 0.2-1.0 mg/dL (0.2-1.0) 03/07/19 10:38 Ur Leukocyte Esterase Neg Luna/uL (Negative) 03/07/19 10:38 Urine RBC (Auto) 7340 /hpf (0-3) H 03/07/19 10:38 Urine Microscopic WBC 25 /hpf (0-5) H 03/07/19 10:38 Urine Bacteria Occ (<OCC) H 03/07/19 10:38 - ECG ECG: Positive for: Interpreted By Me, Viewed By Me ECG Rhythm: Positive for: Sinus Rhythm, ST/T Changes (lateral ST changes) Rate: 75 O2 Sat by Pulse Oximetry: 99 (RA) Pulse Ox Interpretation: Normal - Radiology X-Ray: Read By Radiologist X-Ray Interpretation: No Acute Disease - CT Scan/US US renal Other Rad Studies (CT/US): Radiology Report Reviewed (R hydronephrosis) - Critical Care Total Time (In Min): 35 Documented Critical Care: Time excludes all time spent performint seperately billable procedures Medical Decision Making Medical Decision Makin:25 Orders: --packed cells Leukoreduced --Blood type and screen --EKG --CMP --CBC --magnesium --phosphate --PTT --PT --CXR --Glucose POC --Urine cx --UA --Renal US Sugar Trucker alerted of case who is familiar with patient due to prior visits. Patient and son consented to blood transfusion. PAC sound ordered. Urology to be consulted for hematuria. 1319: US FINDINGS: RIGHT KIDNEY: Measures: 4.9 x 10.0 cm. Normal in size, contour and echogenicity. Dilatation of the right collecting system similar to that seen previously. Two lower pole calculi. 0.7 x 1.2 cm. Slightly larger calculus 0.9 x 1.6 cm. Similar findings identified on the prior study. LEFT KIDNEY: Measures: 4.6 x 9.2 cm. Normal in size, contour and echogenicity. No stone, solid mass lesion or hydronephrosis visualized. OTHER FINDINGS: None. IMPRESSION: Unilateral, right mild hydronephrosis. Right renal calculi (2). 13:[address] Guillen for [place] service Lloyd Plasencia NP aware of case. 15:[address] Ortiz with recommended a CT of his abdomen/pelvis, study ordered and pending at time admission Dr Bhardwaj aware of case, EKG reviewed lateral changes possible demand ischemia d/w RN to be cautious and slow with PRBC transfusion, IVF stopped as prior flash pulm edema Scribe Attestation: Documented by Britni Bowman, acting as a scribe for Matthew Monterroso III, DO Provider Scribe Attestation: All medical record entries made by the Scribe were at my direction and personally dictated by me. I have reviewed the chart and agree that the record accurately reflects my personal performance of the history, physical exam, medical decision making, and the department course for this patient. I have also personally directed, reviewed, and agree with the discharge instructions and disposition. Disposition - Clinical Impression Clinical Impression: Anemia, Hematuria, Chest pain, Acute electrocardiogram changes, Chronic kidney disease, Hyperkalemia - Patient ED Disposition Is Patient to be Admitted: Yes Counseled Patient/Family Regarding: Studies Performed, Diagnosis (d/w son) - Disposition Disposition Time: 13:15 Condition: FAIR - Pt Status Changed To: Hospital Disposition Of: Inpatient - Admit Certification Admit to Inpatient:: After my assessment, the patient will require hospitalization for at least two midnights. This is because of the severity of symptoms shown, intensity of services needed, and/or the medical risk in this patient being treated as an outpatient.
--- NOTE | 2019-03-07 13:23 | US ---
Date of service: 03/07/2019 PROCEDURE: Ultrasound of the Kidneys HISTORY: ++hematuria recent R kidney biopsy COMPARISON: 11/20/2018. Renal ultrasound. 11/20/2018 CT abdomen and pelvis.. TECHNIQUE: Sonogram of the kidneys. FINDINGS: RIGHT KIDNEY: Measures: 4.9 x 10.0 cm. Normal in size, contour and echogenicity. Dilatation of the right collecting system similar to that seen previously. Two lower pole calculi. 0.7 x 1.2 cm. Slightly larger calculus 0.9 x 1.6 cm. Similar findings identified on the prior study. LEFT KIDNEY: Measures: 4.6 x 9.2 cm. Normal in size, contour and echogenicity. No stone, solid mass lesion or hydronephrosis visualized. OTHER FINDINGS: None. IMPRESSION: Unilateral, right mild hydronephrosis. Right renal calculi (2).
--- NOTE | 2019-03-07 14:55 | RAD ---
Date of service: 03/07/2019 HISTORY: Shortness of breath. COMPARISON: 11/19/2018. FINDINGS: LUNGS: Clear PLEURA: No significant pleural effusion identified, no pneumothorax apparent. CARDIOVASCULAR: No radiographic findings to suggest acute or significant cardiovascular disease. Atherosclerotic calcifications identified primarily aortic arch. OSSEOUS STRUCTURES: No significant abnormalities. VISUALIZED UPPER ABDOMEN: Normal. OTHER FINDINGS: None. IMPRESSION: No active disease. No significant interval change compared to the prior examination(s).
--- NOTE | 2019-03-07 17:44 | PCM.RRT ---
<Jordan Anne - Last Filed: 03/07/19 17:53> [employer] Nurse Assessment - Situation [employer] Responder Arrival Time: 17:15 - Ventilator Settings Ventilator Respiratory Rate Settin Ventilator Tidal Volume Settin I.Reason for [employer] - A) Acute Change in Patient: Subjective: 84 year old male with a history of CHF, HTN, aortic stenosis and urogenital malignancy s/p biopsy at [facility] last week presents to the ED with chest pain and gross hematuria. Admitted to evaluate ACS, and blood transfusion due to low h/H 7.9/23.7. [employer] called today by nurse due to blood pressure of 203/77 hr 75. otherwise patient was asymptomatic. Hydrazine 50mg iv given blood pressure trended down to 171/62 with HR 71. Patient blood pressure was not controlled due to patient was not on his medication thru out of the day. Patient also received one pill of Clonidine 0.1 as her BP medication. Assessment and plan [employer] called due to Uncontrolled blood pressure Patient asymptomatic BP of 203/77 Patient did not take medication today Patient received Hydralazine 50mg and one pill of Clonidine 0.1mg Patient should continue his home medication Patient should be followed by his PCP. - Neurological Status (Select all that apply): Alert, Oriented, Verbal, Follows Commands - Constitutional Appears: Well, Non-toxic, No Acute Distress - Head Head Exam: ATRAUMATIC, NORMAL INSPECTION, NORMOCEPHALIC - Eyes Eye Exam: EOMI, Normal appearance, PERRL - Respiratory Exam Respiratory Exam: Clear to Ausculation Bilateral, NORMAL BREATHING PATTERN - Cardiovascular Exam Cardiovascular Exam: REGULAR RHYTHM, +S1, +S2 - GI/Abdominal Exam GI & Abdominal Exam: Soft, Normal Bowel Sounds - Neurological Exam Neurological Exam: Alert, Awake, CN II-XII Intact, Normal Gait, Oriented x3 - Extremities Exam Extremities Exam: Full ROM, Normal Capillary Refill, Normal Inspection <Estelita Roy - Last Filed: 03/07/19 18:11> [employer] Nurse Assessment - Vital Signs Vital Signs: Rapid Response Vital Sign Blood Pressure 203/77 Pulse Rate 75 Respiratory Rate 20 Oxygen Saturation 98 - Vital Signs at end of [employer] Vital Signs at end of [employer]: Rapid Response End Vital Sign Blood Pressure 171/62 Pulse Rate 72 Respiratory Rate 18 O2 Sat by Pulse Oximetry 100 Attending/Attestation - Attestation I have personally seen and examined this patient.: Yes I have fully participated in the care of the patient.: Yes I have reviewed all pertinent clinical information, including history, physical exam and plan: Yes Notes (Text): Hypertensive Emergency -[employer] called due to BP 203/81 - Pt seen and examined, asymptomatic - denies CP, no SOB, no palpitation, no dizziness, no headache - admitted for Hematuria and Anemia post renal biopsy done at [facility] -Hydralazine IV ordered rpt BP 181/72 - restarted pt's HTN med Clonidine w/c he missed taking this am - Pt's PMD Lloyd Plasencia notified of the event, case discussed - Blood transfusion to be started
--- NOTE | 2019-03-07 17:47 | CARD ---
APPROVED REPORT Date of service: 03/07/2019 EKG Measurement Heart [id number] <Conclusion> Normal sinus rhythm Left ventricular hypertrophy with repolarization abnormality Abnormal ECG
--- NOTE | 2019-03-07 17:51 | CARD ---
APPROVED REPORT Date of service: 03/07/2019 EKG Measurement Heart [id number] <Conclusion> Normal sinus rhythm T wave abnormality, consider lateral ischemia Prolonged QT Abnormal ECG
--- NOTE | 2019-03-07 17:57 | CP.PCM.CON ---
History of Present Illness - History of Present Illness History of Present Illness: I was asked to evaluate patient by Dr Guillen. Patient seen 03/07/19 4300 Patient is a 84 year old male with moderate , HTn renal insufficiency who presents with hematuria. 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 he states he ahs had gross hematuria since. He developed chest pain which is usually in association with anemia. He was found to have a Hgb 7. He denies current chest pain. Review of Systems - Constitutional Constitutional: absent: As Per HPI, Anorexia, Chills, Daytime Sleepiness, Excessive Sweating, Fatigue, Fever, Frequent Falls, Headache, Increased Appetite, Lethargy, Malaise, Night Sweats, Snoring, Sleep Apnea, Weight Gain, Weight Loss, Weakness, Other - EENT Eyes: absent: As Per HPI, Blind Spots, Blurred Vision, Change in Vision, Decreased Night Vision, Diplopia, Discharge, Dry Eye, Exophthalmos, Floaters, Irritation, Itchy Eyes, Loss of Peripheral Vision, Pain, Photophobia, Requires Corrective Lenses, Sees Flashes, Spots in Vision, Tunnel Vision, Other Visual Disturbances, Loss of Vision, Other Ears: absent: As Per HPI, Decreased Hearing, Ear Discharge, Ear Pain, Tinnitus, Abnormal Hearing, Disequilibrium, Dizziness, Other Nose/Mouth/Throat: absent: As Per HPI, Epistaxis, Nasal Congestion, Nasal Discha rge, Nasal Obstruction, Nasal Trauma, Nose Pain, Post Nasal Drip, Sinus Pain, Sinus Pressure, Bleeding Gums, Change in Voice, Dental Pain, Dry Mouth, Dysphagia, Halitosis, Hoarsness, Lip Swelling, Mouth Lesions, Mouth Pain, Odynophagia, Sore Throat, Throat Swelling, Tongue Swelling, Facial Pain, Neck Pain, Neck Mass, Other - Cardiovascular Cardiovascular: Chest Pain - Respiratory Respiratory: Dyspnea - Gastrointestinal Gastrointestinal: absent: As Per HPI, Abdominal Pain, Belching, Bloating, Change in Bowel Habits, Change in Stool Character, Coffee Ground Emesis, Constipation, Cramping, Diarrhea, Dyspepsia, Dysphagia, Early Satiety, Excessive Flatus, Fecal Incontinence, Heartburn, Hematemesis, Hematochezia, Loose Stools, Melena, Nausea, Odynophagia, Temesmus, Vomiting, Other - Genitourinary Genitourinary: absent: As Per HPI, Change in Urinary Stream, Difficulty Urinating, Dysuria, Flank Pain, Hematuria, Pyuria, Nocturia, Urinary I ncontinence, Urinary Frequency, Urinary Hesitance, Urinary Urgency, Voiding Freq/Small Amts, Freq UTI, Hx Renal/Bladder Calculi, Hx /Renal Surgery, Bladder Distension, Other - Musculoskeletal Musculoskeletal: absent: As Per HPI, Abnormal Gait, Arthralgias, Atrophy, Back Pain, Deformity, Joint Swelling, Limited Range of Motion, Loss of Height, Muscle Cramps, Muscle Weakness, Myalgias, Neck Pain, Numbness, Radiating Pain into Limb, Stiffness, Tingling, Other - Integumentary Integumentary: absent: As Per HPI, Acne, Alopecia, Bleeding Lesions, Change in Hair, Change in Nails, Change in Pigmentation, Changing Lesions, Dry Skin, Erythema, Furuncle, Hirsutism, Lesions, New Lesions, Non-Healing Lesions, Photosensitivity, Pruritus, Rash, Skin Pain, Skin Ulcer, Sores, Striae, Swelling, Unusual Bruising, Wounds, Jaundice, Other - Neurological Neurological: absent: As Per HPI, Abnormal Gait, Abnormal Hearing, Abnormal Movements, Abnormal Speech, Behavioral Changes, Burning Sensations, Confusion, Convulsions, Disequilibrium, Dizziness, Numbness, Focal Weakness, Frequent Falls, Headaches, Lack of Coordination, Loss of Vision, Memory Loss, Paresthesias, Radicular Pain, Restless Legs, Sensory Deficit, Syncope, Tingling, Tremor, Vertigo, Weakness, Other Visual Disturbances, Other - Psychiatric Psychiatric: absent: As Per HPI, Abnormal Sleep Pattern, Anhedonia, Anxiety, Auditory Hallucinations, Behavioral Changes, Change in Appetite, Change in Libido, Confusion, Depression, Difficulty Concentrating, Hallucinations, Homicidal Ideation, Hopelessness, Irritability, Memory Loss, Mood Swings, Panic Attacks, Paranoia, Suicidal Ideation, Visual Hallucinations, Tactile Hallucinations, Other - Endocrine Endocrine: absent: As Per HPI, Change in Body Appearance, Change in Libido, Cold Intolorance, Deepening of Voice, Excessive Sweating, Fatigue, Flushing, Heat Intolorance, Increase in Ring/Shoe/Hat Size, Palpitations, Polydipsia, Polyphagia, Polyuria, Other - Hematologic/Lymphatic Hematologic: absent: As Per HPI, Easy Bleeding, Easy Bruising, Lymphadenopathy, Other Past Patient History - Past Medical History & Family History Past Medical History?: Yes - Past Social History Smoking Status: Former Smoker - CARDIAC Hx Congestive Heart Failure: Yes (acute on chronic) Hx Hypertension: Yes - PULMONARY Hx Chronic Obstructive Pulmonary Disease (COPD): Yes Hx Pneumonia: Yes - NEUROLOGICAL Hx Neurological Disorder: Yes (Radiculopathy) Hx Dizziness: Yes - HEENT Hx HEENT Problems: Yes Hx Cataracts: Yes - RENAL Hx Chronic Kidney Disease: Yes Hx Kidney Stones: Yes - ENDOCRINE/METABOLIC Hx Endocrine Disorders: Yes Hx Diabetes Mellitus Type 2: Yes - HEMATOLOGICAL/ONCOLOGICAL Hx Anemia: Yes - INTEGUMENTARY Hx Dermatological Problems: No - MUSCULOSKELETAL/RHEUMATOLOGICAL Hx Musculoskeletal Disorders: Yes Hx Back Pain: Yes Hx Falls: No - GASTROINTESTINAL Hx Gastritis: Yes Hx Pancreatitis: Yes - GENITOURINARY/GYNECOLOGICAL 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) - PSYCHIATRIC Hx Psychophysiologic Disorder: No Hx Substance Use: No - SURGICAL HISTORY Hx Carotid Endarterectomy: Yes - ANESTHESIA Hx Anesthesia: Yes (anton ding) Hx Anesthesia Reactions: No Hx Malignant Hyperthermia: No Meds Allergies/Adverse Reactions: Allergies Allergy/AdvReac Type Severity Reaction Status Date / Time No Known Allergies Allergy Verified 03/07/19 09:58 Physical Exam - Constitutional Appears: Non-toxic - Head Exam Head Exam: NORMAL INSPECTION - Eye Exam Eye Exam: Normal appearance - ENT Exam ENT Exam: Mucous Membranes Moist - Neck Exam Neck exam: Positive for: Full Rom - Respiratory Exam Respiratory Exam: Decreased Breath Sounds - Cardiovascular Exam Cardiovascular Exam: REGULAR RHYTHM, Systolic Murmur - GI/Abdominal Exam GI & Abdominal Exam: Normal Bowel Sounds - Rectal Exam Rectal Exam: Deferred - Extremities Exam Extremities exam: Negative for: pedal edema - Back Exam Back exam: NORMAL INSPECTION - Neurological Exam Neurological exam: Alert, Oriented x3 - Psychiatric Exam Psychiatric exam: Normal Affect - Skin Skin Exam: Normal Color Results - Vital Signs Recent Vital Signs: Last Vital Signs Temp 98.4 F 03/07/19 16:15 Pulse 75 03/07/19 17:27 Resp 18 03/07/19 16:15 BP 198/81 H 03/07/19 16:15 Pulse Ox 99 03/07/19 17:27 - Labs Result Diagrams: 03/07/19 10:38 03/07/19 10:38 Labs: Laboratory Results - last 24 hr 03/07/19 03/07/19 03/07/19 10:06 10:38 10:38 WBC 7.9 RBC 2.47 L Hgb 7.9 L Hct 23.7 L MCV 96.0 H MCH 32.0 H MCHC 33.4 RDW 15.2 H Plt Count 189 MPV 7.6 Neut % (Auto) 83.5 H Lymph % (Auto) 5.4 L [place] % (Auto) 8.4 Eos % (Auto) 2.4 Baso % (Auto) 0.3 Neut # (Auto) 6.6 Lymph # (Auto) 0.4 L [place] # (Auto) 0.7 Eos # (Auto) 0.2 Baso # (Auto) 0.0 Neutrophils % (Manual) 77 H Lymphocytes % (Manual) 8 L Monocytes % (Manual) 10 Eosinophils % (Manual) 5 Platelet Estimate Normal Large Platelets Present Anisocytosis (manual) Slight Macrocytosis (manual) Slight Ovalocytes Slight PT INR APTT Sodium 135 Potassium 5.5 H Chloride 106 Carbon Dioxide 20 L Anion Gap 15 BUN 52 H Creatinine 3.6 H Est GFR ( Amer) 20 Est GFR (Non-Af Amer) 16 POC Glucose (mg/dL) 210 H Random Glucose 159 H Calcium 8.7 Magnesium 2.0 Total Bilirubin 0.3 AST 24 ALT 30 Alkaline Phosphatase 86 Troponin I 0.0220 Total Protein 6.4 Albumin 3.6 Globulin 2.8 Albumin/Globulin Ratio 1.3 Urine Color Urine Clarity Urine pH Ur Specific [place] Urine Protein Urine Glucose (UA) Urine Ketones Urine Blood Urine Nitrate Urine Bilirubin Urine Urobilinogen Ur Leukocyte Esterase Urine RBC (Auto) Urine Microscopic WBC Urine Bacteria Blood Type Antibody Screen Crossmatch BBK History Checked 03/07/19 03/07/19 03/07/19 10:38 10:38 10:38 WBC RBC Hgb Hct MCV MCH MCHC RDW Plt Count MPV Neut % (Auto) Lymph % (Auto) [place] % (Auto) Eos % (Auto) Baso % (Auto) Neut # (Auto) Lymph # (Auto) [place] # (Auto) Eos # (Auto) Baso # (Auto) Neutrophils % (Manual) Lymphocytes % (Manual) Monocytes % (Manual) Eosinophils % (Manual) Platelet Estimate Large Platelets Anisocytosis (manual) Macrocytosis (manual) Ovalocytes PT 12.1 INR 1.1 APTT 29.4 Sodium Potassium Chloride Carbon Dioxide Anion Gap BUN Creatinine Est GFR ( Amer) Est GFR (Non-Af Amer) POC Glucose (mg/dL) Random Glucose Calcium Magnesium Total Bilirubin AST ALT Alkaline Phosphatase Troponin I Total Protein Albumin Globulin Albumin/Globulin Ratio Urine Color agustin Urine Clarity turbid Urine pH 6.0 Ur Specific [place] 1.013 Urine Protein 100 Urine Glucose (UA) 150 Urine Ketones Negative Urine Blood Moderate Urine Nitrate Negative Urine Bilirubin Negative Urine Urobilinogen 0.2-1.0 Ur Leukocyte Esterase Neg Urine RBC (Auto) 7340 H Urine Microscopic WBC 25 H Urine Bacteria Occ H Blood Type Cancelled Antibody Screen Cancelled Crossmatch BBK History Checked Cancelled 03/07/19 11:40 WBC RBC Hgb Hct MCV MCH MCHC RDW Plt Count MPV Neut % (Auto) Lymph % (Auto) [place] % (Auto) Eos % (Auto) Baso % (Auto) Neut # (Auto) Lymph # (Auto) [place] # (Auto) Eos # (Auto) Baso # (Auto) Neutrophils % (Manual) Lymphocytes % (Manual) Monocytes % (Manual) Eosinophils % (Manual) Platelet Estimate Large Platelets Anisocytosis (manual) Macrocytosis (manual) Ovalocytes PT INR APTT Sodium Potassium Chloride Carbon Dioxide Anion Gap BUN Creatinine Est GFR ( Amer) Est GFR (Non-Af Amer) POC Glucose (mg/dL) Random Glucose Calcium Magnesium Total Bilirubin AST ALT Alkaline Phosphatase Troponin I Total Protein Albumin Globulin Albumin/Globulin Ratio Urine Color Urine Clarity Urine pH Ur Specific [place] Urine Protein Urine Glucose (UA) Urine Ketones Urine Blood Urine Nitrate Urine Bilirubin Urine Urobilinogen Ur Leukocyte Esterase Urine RBC (Auto) Urine Microscopic WBC Urine Bacteria Blood Type A POSITIVE Antibody Screen Negative Crossmatch See Detail BBK History Checked Patient has bt - EKG Data EKG Interpreted by: Myself EKG shows normal: Sinus rhythm - EKG Data EKG Specific Queries T Wave Inversions Noted in: V4, V5, V6 Assessment & Plan (1) Chest pain Assessment and Plan: mateo demand ischemia. recommend transfusion to Hgb of 9. Patient has moderate , but is wel compensated now. Status: Acute Priority: High (2) HTN (hypertension) Assessment and Plan: will need BP meds restarted. Status: Chronic Priority: Medium (3) Aortic stenosis Assessment and Plan: moderate. medical therapy Status: Chronic Priority: High
[2019-03-07] MEDS ORDERED: Albuterol HFA 90 mcg/actuation (8 g) IH PRN (18:15)
--- NOTE | 2019-03-07 18:50 | CP.PCM.PN ---
Subjective - Date & Time of Evaluation Date of Evaluation: 03/07/19 Time of Evaluation: 18:45 - Subjective Subjective: 84 year old hisp male admitted because of hematuria and dropping hgb. pt had biopsy of unown type at [facility] last week. Pt is un aware of what was biopsied. Based on prior xrays it appears pt may have had ureterscopic biopsy of right renal pelvic mass but cannot confirm. Suggest Get ct to ro renal or retroperotenial bleed Get records from [place]. when stabalized transfer to surgeon who did the biopsy. GARY Objective - Vital Signs/Intake and Output Vital Signs (last 24 hours): Temp Pulse Resp BP Pulse Ox 98 F 70 18 154/72 H 99 03/07/19 18:18 03/07/19 18:18 03/07/19 18:18 03/07/19 18:18 03/07/19 17:27 Intake and Output: 03/07/19 03/07/19 06:59 18:59 Intake Total 0 Balance 0 - Medications Medications: Current Medications Albuterol (Ventolin Hfa 90 Mcg/Actuation (8 G)) 2 puff IH Q6 PRN PRN Reason: Shortness of Breath Clonidine HCl (Catapres) 0.1 mg PO Q12 ASHLEY Home Med (Sitagliptin Phos/Metformin Hcl [Janumet 50-500 Mg Tablet]) 1 tab PO DAILY ASHLEY Hydralazine HCl (Apresoline) 50 mg PO Q8 ASHLEY Metoprolol Tartrate (Lopressor) 100 mg PO Q12 ASHLEY - Labs Labs: 03/07/19 10:38 03/07/19 10:38 PT 12.1 Seconds (9.8-13.1) 03/07/19 10:38 INR 1.1 03/07/19 10:38 APTT 29.4 Seconds (25.6-37.1) 03/07/19 10:38
[2019-03-07] MEDS ORDERED: Fluticasone-Salmeterol 250-50mcg Diskus IH SCH (21:00)
[2019-03-07] MEDS: FLUTICASONE PROPION/SALMETEROL 113-14 IH SCH (21:46)
[2019-03-08 06:07] LABS: BASO % 0.2 % (0.0-2.0); EOS # 0.2 K/uL (0.0-0.7); EOS % 3.5 % (0.0-4.0); HEMOGLOBIN 9.8 g/dL (12.0-18.0); LYMPH # 0.6 K/uL (1.0-4.3); LYMPH % 8.1 % (20.0-40.0); MEAN CELL VOLUME 92.1 fl (80.0-94.0); MEAN CORPUSCULAR HEMOGLOBIN 31.6 pg (27.0-31.0); MEAN CORPUSCULAR HGB CONC 34.4 g/dL (33.0-37.0); MEAN PLATELET VOLUME 7.6 fl (7.2-11.7); MONO % 14.7 % (0.0-10.0); NEUT # 5.1 K/uL (1.8-7.0); NEUT % 73.5 % (50.0-75.0); NRBC % 0.1 % (0.0-0.0); RBC 3.08 Mil/uL (4.40-5.90); RED CELL DISTRIBUTION WIDTH 15.9 % (11.5-14.5)
[2019-03-08 06:22] LABS: CALCIUM 8.8 mg/dL (8.4-10.2)
[2019-03-08] MEDS: FLUTICASONE PROPION/SALMETEROL 113-14 IH SCH (09:27)
--- NOTE | 2019-03-08 11:31 | CP.PCM.HP ---
History of Present Illness - History of Present Illness History of Present Illness: pt admitted for cp and anemia s/p bladder bx. states urinating kolby blood. no f/,c n/v/d. bun/cr and k elevated. pt has h/o ckd. cardio has seen and cleared pt. trops noted. case d/c w/ [facility] and [facility]. case d/c w/ pts uro out of [facility] Present on Admission - Present on Admission Any Indicators Present on Admission: Yes History of Uncontrolled Diabetes: Yes Review of Systems - Cardiovascular Cardiovascular: As Per HPI, Chest Pain - Genitourinary Genitourinary: As Per HPI, Hematuria Past Patient History - Past Medical History & Family History Past Medical History?: Yes - Past Social History Smoking Status: Former Smoker - CARDIAC Hx Congestive Heart Failure: Yes (acute on chronic) Hx Hypertension: Yes - PULMONARY Hx Chronic Obstructive Pulmonary Disease (COPD): Yes Hx Pneumonia: Yes - NEUROLOGICAL Hx Neurological Disorder: Yes (Radiculopathy) Hx Dizziness: Yes - HEENT Hx HEENT Problems: Yes Hx Cataracts: Yes - RENAL Hx Chronic Kidney Disease: Yes Hx Kidney Stones: Yes - ENDOCRINE/METABOLIC Hx Endocrine Disorders: Yes Hx Diabetes Mellitus Type 2: Yes - HEMATOLOGICAL/ONCOLOGICAL Hx Anemia: Yes - INTEGUMENTARY Hx Dermatological Problems: No - MUSCULOSKELETAL/RHEUMATOLOGICAL Hx Musculoskeletal Disorders: Yes Hx Back Pain: Yes Hx Falls: No - GASTROINTESTINAL Hx Gastritis: Yes Hx Pancreatitis: Yes - GENITOURINARY/GYNECOLOGICAL 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) - PSYCHIATRIC Hx Psychophysiologic Disorder: No Hx Substance Use: No - SURGICAL HISTORY Hx Carotid Endarterectomy: Yes - ANESTHESIA Hx Anesthesia: Yes (at[place] ding) Hx Anesthesia Reactions: No Hx Malignant Hyperthermia: No Meds Allergies/Adverse Reactions: Allergies Allergy/AdvReac Type Severity Reaction Status Date / Time No Known Allergies Allergy Verified 03/07/19 09:58 Physical Exam - Constitutional Appears: Well, Non-toxic, No Acute Distress - Head Exam Head Exam: ATRAUMATIC, NORMAL INSPECTION, NORMOCEPHALIC - Eye Exam Eye Exam: EOMI, Normal appearance, PERRL Pupil Exam: NORMAL ACCOMODATION, PERRL - ENT Exam ENT Exam: Mucous Membranes Moist, Normal Exam - Neck Exam Neck exam: Positive for: Normal Inspection - Respiratory Exam Respiratory Exam: Clear to Auscultation Bilateral, NORMAL BREATHING PATTERN - Cardiovascular Exam Cardiovascular Exam: REGULAR RHYTHM, RRR, +S1, +S2 - GI/Abdominal Exam GI & Abdominal Exam: Normal Bowel Sounds, Soft. absent: Tenderness - Extremities Exam Extremities exam: Positive for: full ROM, normal capillary refill, normal inspection, pedal pulses present - Back Exam Back exam: NORMAL INSPECTION - Neurological Exam Neurological exam: Alert, CN II-XII Intact, Normal Gait, Oriented x3, Reflexes Normal - Psychiatric Exam Psychiatric exam: Normal Affect, Normal Mood - Skin Skin Exam: Dry, Intact, Normal Color, Warm Results - Vital Signs Recent Vital Signs: Last Vital Signs Temp 98.3 F 03/08/19 08:00 Pulse 69 03/08/19 09:11 Resp 18 03/08/19 08:00 BP 169/69 H 03/08/19 09:11 Pulse Ox 98 03/08/19 08:00 - Labs Result Diagrams: 03/08/19 04:35 03/08/19 04:35 Labs: Laboratory Results - last 24 hr 03/07/19 03/07/19 03/07/19 10:38 10:38 10:38 WBC RBC Hgb Hct MCV MCH MCHC RDW Plt Count MPV Neut % (Auto) Lymph % (Auto) [place] % (Auto) Eos % (Auto) Baso % (Auto) Neut # (Auto) Lymph # (Auto) [place] # (Auto) Eos # (Auto) Baso # (Auto) Neutrophils % (Manual) 77 H Lymphocytes % (Manual) 8 L Monocytes % (Manual) 10 Eosinophils % (Manual) 5 Platelet Estimate Normal Large Platelets Present Anisocytosis (manual) Slight Macrocytosis (manual) Slight Ovalocytes Slight PT 12.1 INR 1.1 APTT 29.4 Sodium Potassium Chloride Carbon Dioxide Anion Gap BUN Creatinine Est GFR ( Amer) Est GFR (Non-Af Amer) POC Glucose (mg/dL) Random Glucose Calcium Troponin I Urine Color [place] Urine Clarity turbid Urine pH 6.0 Ur Specific [place] 1.013 Urine Protein 100 Urine Glucose (UA) 150 Urine Ketones Negative Urine Blood Moderate Urine Nitrate Negative Urine Bilirubin Negative Urine Urobilinogen 0.2-1.0 Ur Leukocyte Esterase Neg Urine RBC (Auto) 7340 H Urine Microscopic WBC 25 H Urine Bacteria Occ H Blood Type Antibody Screen Crossmatch BBK History Checked 03/07/19 03/07/19 03/08/19 11:40 21:25 04:35 WBC 7.0 RBC 3.08 L Hgb 9.8 L Hct 28.4 L MCV 92.1 D MCH 31.6 H MCHC 34.4 RDW 15.9 H Plt Count 199 MPV 7.6 Neut % (Auto) 73.5 Lymph % (Auto) 8.1 L [place] % (Auto) 14.7 H Eos % (Auto) 3.5 Baso % (Auto) 0.2 Neut # (Auto) 5.1 Lymph # (Auto) 0.6 L [place] # (Auto) 1.0 H Eos # (Auto) 0.2 Baso # (Auto) 0.0 Neutrophils % (Manual) Lymphocytes % (Manual) Monocytes % (Manual) Eosinophils % (Manual) Platelet Estimate Large Platelets Anisocytosis (manual) Macrocytosis (manual) Ovalocytes PT INR APTT Sodium Potassium Chloride Carbon Dioxide Anion Gap BUN Creatinine Est GFR ( Amer) Est GFR (Non-Af Amer) POC Glucose (mg/dL) 134 H Random Glucose Calcium Troponin I Urine Color Urine Clarity Urine pH Ur Specific [place] Urine Protein Urine Glucose (UA) Urine Ketones Urine Blood Urine Nitrate Urine Bilirubin Urine Urobilinogen Ur Leukocyte Esterase Urine RBC (Auto) Urine Microscopic WBC Urine Bacteria Blood Type A POSITIVE Antibody Screen Negative Crossmatch See Detail BBK History Checked Patient has bt 03/08/19 03/08/19 03/08/19 04:35 06:15 06:31 WBC RBC Hgb Hct MCV MCH MCHC RDW Plt Count MPV Neut % (Auto) Lymph % (Auto) [place] % (Auto) Eos % (Auto) Baso % (Auto) Neut # (Auto) Lymph # (Auto) [place] # (Auto) Eos # (Auto) Baso # (Auto) Neutrophils % (Manual) Lymphocytes % (Manual) Monocytes % (Manual) Eosinophils % (Manual) Platelet Estimate Large Platelets Anisocytosis (manual) Macrocytosis (manual) Ovalocytes PT INR APTT Sodium 136 Potassium 5.3 H Chloride 106 Carbon Dioxide 21 L Anion Gap 14 BUN 55 H Creatinine 3.7 H Est GFR ( Amer) 19 Est GFR (Non-Af Amer) 16 POC Glucose (mg/dL) 111 H Random Glucose 100 Calcium 8.8 Troponin I 0.0290 Urine Color Urine Clarity Urine pH Ur Specific [place] Urine Protein Urine Glucose (UA) Urine Ketones Urine Blood Urine Nitrate Urine Bilirubin Urine Urobilinogen Ur Leukocyte Esterase Urine RBC (Auto) Urine Microscopic WBC Urine Bacteria Blood Type Antibody Screen Crossmatch BBK History Checked Assessment & Plan (1) DVT prophylaxis Assessment and Plan: scd and ae hose no anticoag r/ t bleeding Status: Acute (2) Anemia Assessment and Plan: r/t chronic blood loss 2 units prbc. Status: Acute Priority: High (3) Chest pain Assessment and Plan: demand ischemia s per cardio trops noted Status: Acute Priority: High (4) Chronic kidney disease Assessment and Plan: appears stable form bw 2 wks ago. outpt f/u Status: Acute (5) Hematuria Assessment and Plan: uro needs bladder/kidney surgery to be schedule at [facility] Status: Acute (6) Hyperkalemia Status: Acute Decision To Admit - Pt Status Changed To: Hospital Disposition Of: Inpatient - Admit Certification Admit to Inpatient:: After my assessment, the patient will require hospitalization for at least two midnights. This is because of the severity of symptoms shown, intensity of services needed, and/or the medical risk in this patient being treated as an outpatient. - . Bed Request Type: Telemetry Admitting Physician: Huseyin Guillen
--- NOTE | 2019-03-08 14:30 | CT ---
Date of service: 03/07/2019 PROCEDURE: CT Abdomen and Pelvis without intravenous contrast HISTORY: gross hematuria reports of recent R kidney biopsy COMPARISON: 11/20/2018 TECHNIQUE: Without contrast.. Contrast dose: 0 Radiation dose: Total exam DLP = 487.53 mGy-cm. This CT exam was performed using one or more of the following dose reduction techniques: Automated exposure control, adjustment of the mA and/or kV according to patient size, and/or use of iterative reconstruction technique. FINDINGS: LOWER THORAX: Unremarkable. LIVER: Normal size, contour and attenuation. There is a nonspecific rounded low-attenuation lesion in the right lobe of the liver, unchanged from prior examination. This measures approximately 2.1 cm in diameter. No other mass. No biliary dilatation. GALLBLADDER AND BILE DUCTS: Cholelithiasis. No mural thickening or pericholecystic fluid. PANCREAS: Unremarkable. No gross lesion or ductal dilatation. SPLEEN: Unremarkable. ADRENALS: Left adrenal mass, 2 cm. This measures -8 Hounsfield units, consistent with adrenal adenoma. KIDNEYS AND URETERS: Right hydronephrosis. There is intermediate attenuation material seen within the right renal pelvis extending to the proximal right ureter where there is sudden change in caliber of the right ureter slightly distal to the UPJ. This is unchanged from 11/20/2018. Suspicious for neoplasm possibly urothelial. The degree of hydronephrosis is unchanged from the prior examination. VASCULATURE: There is mild aneurysmal dilatation of the infrarenal abdominal aorta to a diameter of 3.3 cm. Possible short segment dissection of the more distal abdominal aorta with possible calcified intimal flap. Normal caliber of the iliac vessels. There is atherosclerotic calcification of the abdominal aorta. BOWEL: Sigmoid diverticulosis. No evidence of diverticulitis. No evidence of colitis. No bowel obstruction. APPENDIX: Normal appendix not identified. No secondary findings. PERITONEUM: Unremarkable. No free fluid. No free air. LYMPH NODES: Unremarkable. No enlarged lymph nodes. BLADDER: Unremarkable. REPRODUCTIVE: Normal prostate BONES: No acute fracture. OTHER FINDINGS: None. IMPRESSION: Soft tissue density extending from the right renal pelvis into the proximal right ureter with sudden caliber change in the proximal right ureter indicating obstruction. Suspicious for neoplasm. No change in appearance from 11/20/2018. Multiple small right lower pole renal calculi. Right hydronephrosis. 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 Cholelithiasis without evidence of cholecystitis. Sigmoid diverticulosis without evidence of diverticulitis. Aneurysmal dilatation of the infrarenal abdominal aorta. Possible short segment dissection of the distal abdominal aorta. The preliminary findings for this examination were reported by [facility] Radiology at 12:06 a.m. on 03/08/2019. There is concurrence of this report with the preliminary findings.
[2019-03-08 15:49] VITALS: BP 158/78; PULSE 67; RESP 20; TEMP 97.9; O2SAT 96
--- NOTE | 2019-03-08 17:27 | CP.PCM.DIS ---
Provider - Provider Date of Admission: 03/07/19 13:35 Attending physician: Huseyin Guillen MD Consults: 03/07/19 13:36 Cardiology Consult Stat Comment: Consulting Provider: Amadou Bhardwaj Consulting Physician: Amadou Bhardwaj Reason for Consult: anemia, chest pain Urology Consult Routine Comment: Consulting Provider: Matthew Ortiz Jr. Consulting Physician: Matthew Ortiz Jr. Reason for Consult: hematuria recent kidney biopsy Time Spent in preparation of Discharge (in minutes): 15 Hospital Course - Lab Results Lab Results: Most Recent Lab Values WBC 7.0 K/uL (4.8-10.8) 03/08/19 04:35 RBC 3.08 Mil/uL (4.40-5.90) L 03/08/19 04:35 Hgb 9.8 g/dL (12.0-18.0) L 03/08/19 04:35 Hct 28.4 % (35.0-51.0) L 03/08/19 04:35 MCV 92.1 fl (80.0-94.0) D 03/08/19 04:35 MCH 31.6 pg (27.0-31.0) H 03/08/19 04:35 MCHC 34.4 g/dL (33.0-37.0) 03/08/19 04:35 RDW 15.9 % (11.5-14.5) H 03/08/19 04:35 Plt Count 199 K/uL (130-400) 03/08/19 04:35 MPV 7.6 fl (7.2-11.7) 03/08/19 04:35 Neut % (Auto) 73.5 % (50.0-75.0) 03/08/19 04:35 Lymph % (Auto) 8.1 % (20.0-40.0) L 03/08/19 04:35 [place] % (Auto) 14.7 % (0.0-10.0) H 03/08/19 04:35 Eos % (Auto) 3.5 % (0.0-4.0) 03/08/19 04:35 Baso % (Auto) 0.2 % (0.0-2.0) 03/08/19 04:35 Neut # (Auto) 5.1 K/uL (1.8-7.0) 03/08/19 04:35 Lymph # (Auto) 0.6 K/uL (1.0-4.3) L 03/08/19 04:35 [place] # (Auto) 1.0 K/uL (0.0-0.8) H 03/08/19 04:35 Eos # (Auto) 0.2 K/uL (0.0-0.7) 03/08/19 04:35 Baso # (Auto) 0.0 K/uL (0.0-0.2) 03/08/19 04:35 Neutrophils % (Manual) 77 % (42-75) H 03/07/19 10:38 Lymphocytes % (Manual) 8 % (20-50) L 03/07/19 10:38 Monocytes % (Manual) 10 % (0-10) 03/07/19 10:38 Eosinophils % (Manual) 5 % (0-7) 03/07/19 10:38 Platelet Estimate Normal (NORMAL) 03/07/19 10:38 Large Platelets Present 03/07/19 10:38 Anisocytosis (manual) Slight 03/07/19 10:38 Macrocytosis (manual) Slight 03/07/19 10:38 Ovalocytes Slight 03/07/19 10:38 PT 12.1 Seconds (9.8-13.1) 03/07/19 10:38 INR 1.1 03/07/19 10:38 APTT 29.4 Seconds (25.6-37.1) 03/07/19 10:38 Sodium 136 mmol/l (132-148) 03/08/19 04:35 Potassium 5.3 MMOL/L (3.6-5.0) H 03/08/19 04:35 Chloride 106 mmol/L (98-107) 03/08/19 04:35 Carbon Dioxide 21 mmol/L (22-30) L 03/08/19 04:35 Anion Gap 14 (10-20) 03/08/19 04:35 BUN 55 mg/dl (9-20) H 03/08/19 04:35 Creatinine 3.7 mg/dl (0.8-1.5) H 03/08/19 04:35 Est GFR ( Amer) 19 03/08/19 04:35 Est GFR (Non-Af Amer) 16 03/08/19 04:35 POC Glucose (mg/dL) 118 mg/dL (65-110) H 03/08/19 16:04 Random Glucose 100 mg/dL (75-110) 03/08/19 04:35 Calcium 8.8 mg/dL (8.4-10.2) 03/08/19 04:35 Magnesium 2.0 MG/DL (1.6-2.3) 03/07/19 10:38 Total Bilirubin 0.3 mg/dl (0.2-1.3) 03/07/19 10:38 AST 24 U/L (17-59) 03/07/19 10:38 ALT 30 U/L (21-72) 03/07/19 10:38 Alkaline Phosphatase 86 U/L (38-126) 03/07/19 10:38 Troponin I 0.0290 ng/mL (0.00-0.120) 03/08/19 06:15 Total Protein 6.4 G/DL (6.3-8.2) 03/07/19 10:38 Albumin 3.6 g/dL (3.5-5.0) 03/07/19 10:38 Globulin 2.8 gm/dL (2.2-3.9) 03/07/19 10:38 Albumin/Globulin Ratio 1.3 (1.0-2.1) 03/07/19 10:38 Urine Color agustin (YELLOW) 03/07/19 10:38 Urine Clarity turbid (Clear) 03/07/19 10:38 Urine pH 6.0 (5.0-8.0) 03/07/19 10:38 Ur Specific [place] 1.013 (1.003-1.030) 03/07/19 10:38 Urine Protein 100 mg/dL (NEGATIVE) 03/07/19 10:38 Urine Glucose (UA) 150 mg/dL (NEGATIVE) 03/07/19 10:38 Urine Ketones Negative mg/dL (NEGATIVE) 03/07/19 10:38 Urine Blood Moderate (NEGATIVE) 03/07/19 10:38 Urine Nitrate Negative (NEGATIVE) 03/07/19 10:38 Urine Bilirubin Negative (NEGATIVE) 03/07/19 10:38 Urine Urobilinogen 0.2-1.0 mg/dL (0.2-1.0) 03/07/19 10:38 Ur Leukocyte Esterase Neg [place]/uL (Negative) 03/07/19 10:38 Urine RBC (Auto) 7340 /hpf (0-3) H 03/07/19 10:38 Urine Microscopic WBC 25 /hpf (0-5) H 03/07/19 10:38 Urine Bacteria Occ (<OCC) H 03/07/19 10:38 Blood Type A POSITIVE 03/07/19 11:40 Antibody Screen Negative 03/07/19 11:40 Crossmatch See Detail 03/07/19 11:40 BBK History Checked Patient has bt 03/07/19 11:40 - Hospital Course Hospital Course: pt rec'd 2 unit prbc, cardio and uro evals. for dc and f/u in am. repeat bw in am. uro and primary appts in am Discharge Exam - Head Exam Head Exam: ATRAUMATIC, NORMAL INSPECTION, NORMOCEPHALIC Discharge Plan - Follow Up Plan Condition: FAIR Disposition: HOME/ ROUTINE Instructions: Chest Pain (DC), Anemia of Chronic Disease (DC), Blood in the Urine (Hematuria), Adult (DC) Additional Instructions: follow up with primary MD in 1 day final dx-hematuria, pelvic mass, demand ischemia doing well, cldeared by cardio, per uro no intervention pt to f/u pmd and primary uro at [facility] spoke w/ uro out of [facility] who will see pt outpt in am. pt and son aware of all. no cp, no f/c, n/v/d. f/u rmg in am, rted prn, meds per med rec Referrals: Ab Guillen MD [Staff Provider] - Matthew Ortiz Jr., MD [Staff Provider] - Zeeshan Ohara MD [Medical Doctor] -
--- NOTE | 2019-03-10 09:16 | PQF ---
PROVIDER RESPONSE TEXT: Acute r/t blood loss REVIEWER QUERY TEXT: Anemia Type Anemia is documented in the Medical Record. Please specify the cause (includes suspected or probable cause) Such as: -- Due to acute blood loss -- Due to chronic blood loss -- Due to iron deficiency -- Due to postoperative blood loss -- Due to chronic disease -- Other, please specify The patient's Clinical Indicators include: XX Query created by: Karla Lemus on 03/09/2019 2:47 PM Electronically signed by: Lloyd Plasencia APN 03/10/2019 9:13 AM
== END 2019-03-08 20:15 | disposition home or self-care (01) | DRG 812 ==
LOC: H.ER 09:51 → H.ERHOLD 13:35 → H.TEL 16:02
PROVIDERS: ADMIT Family Medicine; ATTEND Family Medicine
PROC: 30233N1 Transfusion of Nonautologous Red Blood Cells into Peripheral Vein, Percutaneous Approach (ICD-10-PCS; principal; 2019-03-07)
DX: D62 Acute posthemorrhagic anemia (principal); I24.8 Other forms of acute ischemic heart disease; I13.0 Hypertensive heart and chronic kidney disease with heart failure and stage 1 through stage 4 chronic kidney disease, or unspecified chronic kidney disease; I16.1 Hypertensive emergency; N13.2 Hydronephrosis with renal and ureteral calculous obstruction; R31.0 Gross hematuria; E87.5 Hyperkalemia; I35.0 Nonrheumatic aortic (valve) stenosis; I50.9 Heart failure, unspecified; N18.9 Chronic kidney disease, unspecified; J44.9 Chronic obstructive pulmonary disease, unspecified; E11.22 Type 2 diabetes mellitus with diabetic chronic kidney disease; Z87.891 Personal history of nicotine dependence; R19.00 Intra-abdominal and pelvic swelling, mass and lump, unspecified site; K29.70 Gastritis, unspecified, without bleeding